=== PATIENT | female | born 1995 | race Caucasian/White ===

== ENCOUNTER 2025-03-13 01:13 | Outpatient (CLI) | payer MEDICAID, SELFPAY ==
--- OUTSIDE RECORDS SUMMARY | 2025-03-13 01:43 | XMS RPT_ITS | CCD ---
Author Organization [facility] Care Team Providers Care Rac Specialist Name Role Phone AmarisCorrie Unavailable Unavailable Terence Gifford Unavailable Unavailable Maryann Mathias MD Primary Care Provider JOSLYN PANDA Attending Unavailable DUANE, MARYANN R Primary Care Unavailable ALBERTA NOEL Attending Unavailable ALBERTA NOEL Referring Unavailable DUANE, MARYANN R Primary Care Unavailable ELIJAH SAUCEDO Attending Unavailable DUANE, MARYANN R Primary Care Unavailable SHARYN WALDRON Admitting Unavai lable SAMANTHA LAW Attending Unavailable DUANE, MARYANN R Primary Care Unavailable HERNESTO PATHAK Attending Unavailable DUANE, MARYANN R Primary Care Unavailable DUANE, MARYANN R Primary Care Unavailable MAX LAU Attending Unavailable MAX LAU Attending Unavailable DUANE, MARYANN R Primary Care Unavailable DUANE, MARYANN R Primary Care Unavailable MAX LAU Attending Unavailable DUANE, MARYANN R Primary Care Unavailable ALBERTA NOEL Attending Unavailable DOMONIQUE ONEILL Attending Unavailable DUANE, MARAYNN R Primary Care Unavailable DUANE, MARYANN R Primary Care Unavailable MAX LAU Attending Unavailable DUANE, MARYANN R Primary Care Unavailable ALBERTA NOEL Referring Unavailable DUANE, MARYANN R Primary Care Unavailable MAX LAU Attending Unavailable DUANE, MARYANN R Primary Care Unavailable DOMONIQUE ONEILL Attending Unavailable DUANE, MARYANN HEYDI Primary Care Unavailable LING DALY Attending UnavailMARYANN Light Primary Care Unavailable MARYANN MATHIAS Attending Unavailable Ling Daly Attending Unavailable MARYANN MATHIAS HEYDI Primary Care Unavailable Maryann Mathias MD Primary Care Provider Unavailable Primary Care Provider Unavailabl e PLOTTS, ANNIE Attending Unavailable PLOTTS, ANNIE Referring Unavailable PLOTTS, ANNIE Attending Unavailable PLOTTS, ANNIE Referring Unavailable PLOTTS, ANNIE Attending Unavailable MANCINI, KHADRA Attending Unavailable PLOTTS, ANNIE Referring Unavailable PLOTTS, ANNIE Attending Unavailable PLOTTS, ANNIE Referring Unavailable MANCINI, KHADRA Attending Unavailable MANCINI, KHADRA Attending Unavailable PLOTTS, ANNIE Referring Unavailable MANCINI, KHADRA Attending Unavailable MANCINI, KHADRA Attending Unavailable MANCINI, KHADRA Attending Unavailable MANCINI, KHADRA Attending Unavailable WISARTHUR DORADO Attending Unavailable CHINYERE FRIEND Attending Unavail able MANCINI, KHADRA Attending Unavailable PLOTTS, ANNIE Attending Unavailable Allergies Allergy Classification Reported Allergen(s) Allergy Type Date of Onset Reaction(s) Facility (20 sources) Azithromycin; Translations: [AZITHROMYCIN] Drug Allergy 0 Hives, Diarrhea, GI Upset [facility] (5 sources) Pertussis Vaccines; Translations: [PERTUSSIS VACCINES] Propensity to adverse reactions Hives [facility] (20 sources) Tetanus Vaccines And Toxoid; Translations: [TETANUS VACCINES AND TOXOID] Propensity to adverse reactions 0 [facility] Medications Current Medications Medication Drug Class(es) Dates Sig (Normalized) Sig (Original) 21 day ethinyl estradiol 0.581547 mg/hr / etonogestrel 0.005 mg/hr vaginal system (3 sources) Progestin, Estrogen Start: 11-22-2023 End: 07-29-2024 etonogestreL-ethinyl estradioL (NUVARING) 0.12-0.015 mg/24 hr vaginal ring Indications: Encounter for initial prescription of vaginal ring hormonal contraceptive insert one ring VAGINALLY AND LEAVE in place FOR THREE consecutive weeks,then REMOVE FOR ONE WEEK. 1 each 07/29/2024 Active Start: 03-31-2017 End: 07-31-2024 NUVARING 0.12-0.015 mg/24 hr vaginal ring INSERT VAGINALLY FOR 3 WEEKS. REMOVE FOR 1 WEEK 3 Each 1 03/31/2017 07/31/2024 Discontinued (Discontinued by Patient) ondansetron 4 mg disintegrating oral tablet (2 sources) Serotonin-3 Receptor Antagonist Start: 04-23-2022 End: 04-23-2022 ondansetron (ZOFRAN ODT) RAPID DISSOLVING tablet 4 mg Start: 04-23-2022 take 1 tablet by henrietta th every six hours as needed ondansetron (ZOFRAN ODT) 4 mg RAPID DISSOLVING tablet Take 1 Tab by mouth every 6 hours as needed 12 Tab 0 04/23/2022 Active PNV no.95/ferrous fum/folic ac ( ORAL) (20 sources) take 8 tablets by mo uth once daily before mealtime PNV no.95/ferrous fum/folic ac ( ORAL) Take 8 tablets by mouth once daily. Active vit no.124/iron/folic ( VITAMIN ORAL) (1 source) vit no.124/iron/folic ( VITAMIN ORAL) Take by mouth 0 Active Completed/Discontinued Medications Medication Drug Class(es) Dates Sig (Normalized) Sig (Original) aspirin 81 mg delayed release oral tablet (1 source) Platelet Aggregation Inhibitor, Nonsteroidal Anti-inflammatory Drug Start: 07-31-2024 End: 07-31-2024 take 1 tablet by mouth once daily aspirin, enteric coated (ECOTRIN LOW STRENGTH) 81 mg EC tablet Indications: Encounter for supervision of normal in multigravida , 8 weeks gestation of Take 1 tablet by mouth once daily. 90 tablet 3 07/31/2024 07/31/2024 Discontinued (Discontinued by Patient) levonorgestrel 0.996758 mg/hr intrauterine system (1 source) Progestin, Progestin-containin g Intrauterine Device End: 07-31-2024 levonorgestrel (MIRENA) 20 mcg/24 hr (5 years) IUD 1 Each by INTRAUTERINE route one time only. 07/31/2024 Discontinued (Discontinued by Patient) miSOPROStol 0.2 mg oral tablet (1 source) Prostaglandin E1 Analog Start: 04-17-2015 End: 07-31-2024 take 1 tablet by mouth every six hours as needed misoprostol (CYTOTEC) 200 mcg tablet Take 1 tablet by mouth every 6 hours as needed. 2 tablet 0 04/17/2015 07/31/2024 Discontinued (Discontinued by Patient) 1000 ml sodium chloride 9 mg/ml injection (1 source) Start: 04-23-2022 End: 04-23-2022 NaCl 0.9% 1,000 mL Problems Active Problems Problem Classification Problem Date Documented Date Episodic/Chronic Contraceptive and procreative management (4 sources) Encounter for initial prescription of vaginal ring hormonal contraceptive; Translations: [Encounter for initial prescription of contraceptive pills] Onset: 01-16-2023 07-27-2024 Episodic Other upper respiratory disease (1 source) Seasonal allergy; Translations: [Other seasonal allergic rhinitis] Onset: 11-19-2021 11-19-2021 Chronic Other upper respiratory disease (1 source) Pain in throat Onset: 07-27-2023 Episodic Other upper respiratory infections (1 source) Acute pharyngitis, unspecified; Translations: [Acute pharyngitis, unspecified] Onset: 07-27-2023 Episodic Residual codes; unclassified (3 sources) 39 weeks gestation of ; Translations: [39 weeks gestation of ] Onset: 11-17-2022 Episodic Residual codes; unclassified (1 source) Gestation period, 8 weeks; Translations: [8 weeks gestation of ] 07-31-2024 Episodic Residual codes; unclassified (2 sources) Gestation period, 12 weeks; Translations: [12 weeks gestation of ] 08-28-2024 Episodic Residual codes; unclassified (1 source) Gestation period, 16 weeks; Translations: [16 weeks gestation of ] 09-24-2024 Episodic Residual codes; unclassified (2 sources) Gestation period, 20 weeks; Translations: [20 weeks gestation of ] 10-23-2024 Episodic Residual codes; unclassified (1 source) Gestation period, 24 weeks; Translations: [24 weeks gestation of ] 11-19-2024 Episodic Residual codes; unclassified (1 source) Gestation period, 28 weeks; Translations: [28 weeks gestation of ] 12-17-2024 Episodic Residual codes; unclassified (1 source) Gestation period, 30 weeks; Translations: [30 weeks gestation of ] 12-31-2024 Episodic Residual codes; unclassified (1 source) Gestation period, 32 weeks; Translations: [32 weeks gestation of ] 01-14-2025 Episodic Residual codes; unclassified (1 source) Gestation period, 34 weeks; Translations: [34 weeks gestation of ] 01-28-2025 Episodic Residual codes; unclassified (1 source) Gestation period, 36 weeks; Translations: [36 weeks gestation of ] 02-11-2025 Episodic Residual codes; unclassified (1 source) Gestation period, 38 weeks; Translations: [38 weeks gestation of ] 02-25-2025 Episodic Residual codes; unclassified (2 sources) Gestation period, 39 weeks; Translations: [39 weeks gestation of ] 03-05-2025 Episodic Residual codes; unclassified (3 sources) Gestation period, 40 weeks; Translations: [40 weeks gestation of ] 03-11-2025 Episodic Residual codes; unclassified (1 source) 40 weeks gestation of ; Translations: [40 weeks gestation of (HCC)] Onset: 03-11-2025 Episodic Residual codes; unclassified (1 source) 38 weeks gestation of ; Translations: [38 weeks gestation of (HCC)] Onset: 02-25-2025 Episodic Residual codes; unclassified (1 source) 37 weeks gestation of ; Translations: [37 weeks gestation of (HCC)] Onset: 02-18-2025 Episodic Residual codes; unclassified (1 source) 36 weeks gestation of ; Translations: [36 weeks gestation of (HCC)] Onset: 02-11-2025 Episodic Residual codes; unclassified (1 source) 34 weeks gestation of ; Translations: [34 weeks gestation of (HCC)] Onset: 01-28-2025 Episodic Residual codes; unclassified (1 source) 32 weeks gestation of ; Translations: [32 weeks gestation of (HCC)] Onset: 01-14-2025 Episodic Residual codes; unclassified (1 source) 28 weeks gestation of ; Translations: [28 weeks gestation of ([facility])] Onset: 12-17-2024 Episodic Unclassified (2 sources) Abdominal Pain, Fever Onset: 04-23-2022 Unclassified (3 sources) Care; Translations: [ Care] Onset: 09-28-2022 Unclassified (1 source) Medication Management Onset: 10-25-2023 Unclassified (1 source) Sinus Problem Onset: 07-27-2023 Past or Other Problems Problem Classification Problem Date Documented Da te Episodic/Chronic Administrative/social admission (20 sources) Multiparous; Translations: [Problems related to multiparity] Onset: 07-31-2024 07-31-2024 Episodic Joint disorders and dislocations; trauma-related (1 source) Patellofemoral syndrome of bilateral knees; Translations: [Patellofemoral disorders, right knee] Onset: 03-19-2019 Resolved: 06-17-2019 06-17-2019 Chronic Menstrual disorders (20 sources) Oligomenorrhea; Translations: [Oligomenorrhea, unspecified] Onset: 12-08-2009 Resolved: 12-31-2024 12-08-2009 Chronic Nausea and vomiting (5 sources) Nausea, vomiting and diarrhea; Translations: [Nausea with vomiting, unspecified] Onset: 04-23-2022 Episodic Other connective tissue disease (1 source) Finding of pattern of gross motor movement; Translations: [Other symptoms and signs involving the musculoskeletal system] Onset: 08-26-2016 Resolved: 10-14-2016 10-14-2016 Episodic Other connective tissue disease (1 source) Other symptoms and signs involving the musculoskeletal system; Translations: [Other musculoskeletal symptoms referable to limbs] Onset: 03-19-2019 Resolved: 06-17-2019 06-17-2019 Episodic Other gastrointestinal disorders (2 sources) Diarrhea, unspecified; Translations: [Diarrhea, unspecified] Onset: 04-23-2022 Episodic Other nervous system disorders (1 source) Abnormal gait; Translations: [Unspecified abnormalities of gait and mobility] Onset: 03-19-2019 Resolved: 06-17-2019 06-17-2019 Episodic Other non-traumatic joint disorders (1 source) Pain in right knee; Translations: [Pain in joint, lower leg] Onset: 03-19-2019 Resolved: 06-17-2019 06-17-2019 Episodic Other and delivery including normal (20 sources) Encounter for supervision of other normal , unspecified trimester; Translations: [Encounter for full-term uncomplicated delivery] Onset: 05-29-2020 Resolved: 04-19-2021 Episodic Other screening for suspected conditions (not mental disorders or infectious disease) (9 sources) Encounter for screening for malformations; Translations: [Patient encounter status] Onset: 05-25-2022 Episodic Residual codes; unclassified (1 source) 24 weeks gestation of ; Translations: [24 weeks gestation of (HCC)] Onset: 11-19-2024 Episodic Residual codes; unclassified (2 sources) 8 weeks gestation of ; Translations: [8 weeks gestation of (HCC)] Onset: 08-28-2024 Episodic Spondylosis; intervertebral disc disorders; other back problems (2 sources) Neck pain; Translations: [Cervicalgia] Onset: 08-26-2016 Resolved: 10-14-2016 10-14-2016 Episodic Results Test Name Value Interpretation Reference Range Karina Hallman 03-12-2025 CNPN Telephone (OBGYWM) DARRENYANET ([id number]) 1995 F Date Time Provider Department 03/12/25 CHINYERE FRIEND OBGYWM During your visit today, we recorded the following information about you: Nica Law, ANNIE 03/12/2025 4:07 PM Signed 40w4d Patient called to report that she has been kaden since 6 AM. 10 min apart up until the last hour where they are 6-8 min. Becoming more painful. Rating a 6. Not ruptured. Lost mucous plug at 6 AM. Good FM. No VB. Would like to continue to labor at home for several hours. Wants a water and asked to let midwives know. Message sent to CP. Patient aware that MAGDIEL and CP are not carbon capture power plant operator today. CORA notified. Updated HANDP faxed to Cora. Patient lives minutes away from the hospital. Nica Law RN Allergies As of Date: 03/12/2025 Noted Allergy Reaction TETANUS VACCINES AND TOXOID 12/08/2009 Comments: Ingredient in Old Tetanus Vaccine. ZITHROMAX (AZITHROMYCIN) 12/08/2009 8 - GI Upset Date Reviewed: 03/11/2025 Reviewed by: Carli Youngblood MA - Fully Assessed Reason for Visit: OB Contractions [Other] Prescriptions as of 03/12/2025 - PNV no.95/ferrous fum/folic ac ( ORAL) Take 8 tablets by mouth once daily. Problem List As Of Date 03/12/2025 Noted Resolved Oligomenorrhea [N91.5] 12/08/2009 12/31/2024 Dysmenorrhea [N94.6] 12/08/2009 08/28/2024 Encounter for supervision of normal i*07/31/2024 Multiparity [Z64.1] 07/31/2024 Encounter Status:Closed by NICA LAW on 03/12/25 Normal [facility] URINE OB DIP B/Oon Glucose Ql (U) Negative Neg mg/dL [facility] Interpretation and review of laboratory results Normal [facility] Protein.monoclonal (U) [Mass/Vol] Negative Neg mg/dL [facility] CNPNon 03-07-2025 CNPN Telephone (OBGYWM) YANET BANKS ([id number]) 1995 F Date Time Provider Department 03/07/25 ANNIE THAKUR OBGYWM During your visit today, we recorded the following information about you: Erasto Brunson LPN 03/07/2025 3:28 PM Signed Faxed signed water consent to [facility] 03/07/2025. Erasto Brunson LPN Allergies As of Date: 03/07/2025 Noted Allergy Reaction TETANUS VACCINES AND TOXOID 12/08/2009 Comments: Ingredient in Old Tetanus Vaccine. ZITHROMAX (AZITHROMYCIN) 12/08/2009 8 - GI Upset Date Reviewed: 03/07/2025 Reviewed by: Erasto Brunson LPN - Fully Assessed Prescriptions as of 03/07/2025 - PNV no.95/ferrous fum/folic ac ( ORAL) Take 8 tablets by mouth once daily. Problem List As Of Date 03/07/2025 Noted Resolved Oligomenorrhea [N91.5] 12/08/2009 12/31/2024 Dysmenorrhea [N94.6] 12/08/2009 08/28/2024 Encounter for supervision of normal i*07/31/2024 Multiparity [Z64.1] 07/31/2024 Encounter Status:Closed by ERASTO BRUNSON on 03/07/25 Normal [facility] URINE OB DIP B/Oon 5 Glucose Ql (U) Negative Neg mg/dL [facility] Interpretation and review of laboratory results Normal [facility] Protein.monoclonal (U) [Mass/Vol] Negative Neg mg/dL [facility] URINE OB DIP B/Oon 5 Glucose Ql (U) Negative Neg mg/dL [facility] Interpretation and review of laboratory results Normal [facility] Protein.monoclonal (U) [Mass/Vol] Negative Neg mg/dL [facility] URINE OB DIP B/Oon 5 Glucose Ql (U) Negative Neg mg/dL [facility] Interpretation and review of laboratory results Normal [facility] Protein.monoclonal (U) [Mass/Vol] Negative Neg mg/dL [facility] ROUTINE, GROUP B ST REPTOCOCCUS BY PCRon 02-11-2025 ROUTINE, GROUP B STREPTOCOCCUS BY PCR Not detected Normal [facility] Comment on above: Performed By: #### L [id number] #### [facility] CLIA [id number] [address] [place] [address] [place] [facility] URINE OB DIP B/Oon 5 Glucose Ql (U) Negative Neg mg/dL [facility] Protein.monoclonal (U) [Mass/Vol] Negative Neg mg/dL [facility] CNPShama 01-28-2025 JAKEN Telephone (OBGYWM) YANET BANKS ([id number]) 1995 F Date Time Provider Department 01/28/25 ARTHUR CONKLIN OBSANDRITA During your visit today, we recorded the following information about you: Nica Law RN 01/28/2025 3:24 PM Addendum 34w3d Patient seen in office today and forgot to mention some pain she had on Monday after she was seen by the Chiropractor. Several hours after she had a side line adjustment on Monday she had a sharp pain in her cervix. Pain rate of 7-8. Said it felt much different than Luis Barnett. The pain returned again today after being seen in our office. Sharp again, but only a pain rate of 2. Patient asking if this pain could be related to her adjustment. Reassurance given. Advised to call the office if her pain continues, becomes more severe, or is accompanied with VB. Patient asked that message be sent to MAGDIEL. Advised provider is out of the office. ANNIE Witt Sara, MD 01/28/2025 5:09 PM Signed Agree call if pain is severe, persistent or associated with other symptoms such as bleeding, LOF. For pain in advise warm baths or showers, rest, and Tylenol PRN. If pain does not improve with that can call Lolis Anders RN 01/29/2025 9:14 AM Signed Patient notified and voiced understanding. Lolis Anders RN Allergies As of Date: 01/28/2025 Noted Allergy Reaction TETANUS VACCINES AND TOXOID 12/08/2009 Comments: Ingredient in Old Tetanus Vaccine. ZITHROMAX (AZITHROMYCIN) 12/08/2009 8 - GI Upset Date Reviewed: 01/28/2025 Reviewed by: Niru Lazo MA - Fully Assessed Reason for Visit: Question (OB Question) [8172] Prescriptions as of 01/29/2025 - PNV no.95/ferrous fum/folic ac ( ORAL) Take 8 tablets by mouth once daily. Problem List As Of Date 01/28/2025 Noted Resolved Oligomenorrhea [N91.5] 12/08/2009 12/31/2024 Dysmenorrhea [N94.6] 12/08/2009 08/28/2024 Encounter for supervision of normal i*07/31/2024 Multiparity [Z64.1] 07/31/2024 Encounter Status:Closed by LOLIS ANDERS on 01/29/25 [facility] 01-01-2025 CNPN Telephone ([id number]) YANET BANKS ([id number]) 1995 F Date Time Provider Department 01/01/25 NICA URIARTE [id number] During your visit today, we recorded the following information about you: Nica Uriarte RN 01/01/2025 8:17 AM Signed 3rd risk assessment form submitted 01/01/2025. Nica Uriarte RN Allergies As of Date: 01/01/2025 Noted Allergy Reaction TETANUS VACCINES AND TOXOID 12/08/2009 Comments: Ingredient in Old Tetanus Vaccine. 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 Problem List As Of Date 01/01/2025 Noted Resolved Oligomenorrhea [N91.5] 12/08/2009 12/31/2024 Dysmenorrhea [N94.6] 12/08/2009 08/28/2024 Encounter for supervision of normal i*07/31/2024 Multiparity [Z64.1] 07/31/2024 Encounter Status:Closed by INCA URIARTE on 01/01/25 Normal [facility] CBC W Auto Differential pane l (Bld)on 12-17-2024 Basophils (Bld) [#/Vol] 10*3/uL Normal <0.11 [facility] Comment on above: Order Comment: Speci men Type: FLUID SPECIMEN Ordering Facility: [facility] Address: [address] [place] [address] Performed By: #### L [id number] #### [facility] CLIA [id number] [address] [place] [address] [place] Basophils/100 WBC (Bld) 0.3 % Normal [facility] Comment on above: Order Comment: Speci men Type: FLUID SPECIMEN Ordering Facility: [facility] Address: [address] [place] [address] Performed By: #### L [id number] #### [facility] CLIA [id number] [address] [place] [address] [place] Differential cell count method Nom (Bld) Auto Normal [facility] Comment on above: Order Comment: Speci men Type: FLUID SPECIMEN Ordering Facility: [facility] Address: [address] [place] [address] Performed By: #### L [id number] #### [facility] CLIA [id number] [address] [place] [address] [place] Eosinophils (Bld) [#/Vol] 0.11 10*3/uL Normal <0.46 [facility] Comment on above: Order Comment: Speci men Type: FLUID SPECIMEN Ordering Facility: [facility] Address: [address] [place] [address] Performed By: #### L [id number] #### [facility] CLIA [id number] [address] [place] [address] [place] Eosinophils/100 WBC (Bld) 1.5 % Normal [facility] Comment on above: Order Comment: Speci men Type: FLUID SPECIMEN Ordering Facility: [facility] Address: [address] [place] [address] Performed By: #### L [id number] #### [facility] CLIA [id number] [address] [place] [address] [place] Erythrocyte distribution width (RBC) [Ratio] 12.7 % Normal 11.5-15.0 [facility] Comment on above: Order Comment: Speci men Type: FLUID SPECIMEN Ordering Facility: [facility] Address: [address] [place] [address] Performed By: #### L [id number] #### [facility] CLIA [id number] [address] [place] [address] [place] Hematocrit (Bld) [Volume fraction] 37.0 % Normal 36.0-46.0 [facility] Comment on above: Order Comment: Speci men Type: FLUID SPECIMEN Ordering Facility: [facility] Address: [address] [place] [address] Performed By: #### L [id number] #### [facility] CLIA [id number] [address] [place] [address] [place] Hemoglobin (Bld) [Mass/Vol] 13.2 g/dL Normal 11.5-15.5 [facility] Comment on above: Order Comment: Speci men Type: FLUID SPECIMEN Ordering Facility: [facility] Address: [address] [place] [address] Performed By: #### L [id number] #### [facility] CLIA [id number] [address] [place] [address] [place] Immature granulocytes (Bld) [#/Vol] 0.05 10*3/uL Normal <0.10 [facility] Comment on above: Order Comment: Speci men Type: FLUID SPECIMEN Ordering Facility: [facility] Address: [address] [place] [address] Performed By: #### L [id number] #### [facility] CLIA [id number] [address] [place] [address] [place] Immature granulocytes/100 WBC (Bld) 0.7 % Normal [facility] Comment on above: Order Comment: Speci men Type: FLUID SPECIMEN Ordering Facility: [facility] Address: [address] [place] [address] Performed By: #### L [id number] #### [facility] CLIA [id number] [address] [place] [address] [place] Lymphocytes (Bld) [#/Vol] 1.56 10*3/uL Normal 1.00-4.00 [facility] Comment on above: Order Comment: Speci men Type: FLUID SPECIMEN Ordering Facility: [facility] Address: [address] [place] [address] Performed By: #### L [id number] #### [facility] CLIA [id number] [address] [place] [address] [place] Lymphocytes/100 WBC (Bld) 21.3 % Normal [facility] Comment on above: Order Comment: Speci men Type: FLUID SPECIMEN Ordering Facility: [facility] Address: [address] [place] [address] Performed By: #### L [id number] #### [facility] CLIA [id number] [address] [place] [address] [place] MCH (RBC) [Entitic mass] 32.8 pg Normal 26.0-34.0 [facility] Comment on above: Order Comment: Speci men Type: FLUID SPECIMEN Ordering Facility: [facility] Address: [address] [place] [address] Performed By: #### L [id number] #### [facility] CLIA [id number] [address] [place] [address] [place] MCHC (RBC) [Mass/Vol] 35.7 g/dL Normal 30.5-36.0 [facility] Comment on above: Order Comment: Speci men Type: FLUID SPECIMEN Ordering Facility: [facility] Address: [address] [place] [address] Performed By: #### L [id number] #### [facility] CLIA [id number] [address] [place] [address] [place] MCV (RBC) [Entitic vol] 92.0 fL Normal 80.0-100.0 [facility] Comment on above: Order Comment: Speci men Type: FLUID SPECIMEN Ordering Facility: [facility] Address: [address] [place] [address] Performed By: #### L [id number] #### [facility] CLIA [id number] [address] [place] [address] [place] Monocytes (Bld) [#/Vol] 0.54 10*3/uL Normal <0.87 [facility] Comment on above: Order Comment: Speci men Type: FLUID SPECIMEN Ordering Facility: [facility] Address: [address] [place] [address] Performed By: #### L [id number] #### [facility] CLIA [id number] [address] [place] [address] [place] Monocytes/100 WBC (Bld) 7.4 % Normal [facility] Comment on above: Order Comment: Speci men Type: FLUID SPECIMEN Ordering Facility: [facility] Address: [address] [place] [address] Performed By: #### L [id number] #### [facility] CLIA [id number] [address] [place] [address] [place] Neutrophils (Bld) [#/Vol] 5.06 10*3/uL Normal 1.45-7.50 [facility] Comment on above: Order Comment: Speci men Type: FLUID SPECIMEN Ordering Facility: [facility] Address: [address] [place] [address] Performed By: #### L [id number] #### [facility] CLIA [id number] [address] [place] [address] [place] Neutrophils/100 WBC (Bld) 68.8 % Normal [facility] Comment on above: Order Comment: Speci men Type: FLUID SPECIMEN Ordering Facility: [facility] Address: [address] [place] [address] Performed By: #### L [id number] #### [facility] CLIA [id number] [address] [place] [address] [place] Nucleated RBC (Bld) [#/Vol] 10*3/uL Normal <0.01 [facility] Comment on above: Order Comment: Speci men Type: FLUID SPECIMEN Ordering Facility: [facility] Address: [address] [place] [address] Performed By: #### L [id number] #### [facility] CLIA [id number] [address] [place] [address] [place] Nucleated RBC/100 WBC (Bld) [Ratio] 0.0 /100 WBC Normal [facility] Comment on above: Order Comment: Speci men Type: FLUID SPECIMEN Ordering Facility: [facility] Address: [address] [place] [address] Performed By: #### L [id number] #### [facility] CLIA [id number] [address] [place] [address] [place] Platelet mean volume (Bld) [Entitic vol] 9.0 fL Normal 9.0-12.7 [facility] Comment on above: Order Comment: Speci men Type: FLUID SPECIMEN Ordering Facility: [facility] Address: [address] [place] [address] Performed By: #### L [id number] #### [facility] CLIA [id number] [address] [place] [address] [place] Platelets (Bld) [#/Vol] 252 10*3/uL Normal 150-400 [facility] Comment on above: Order Comment: Speci men Type: FLUID SPECIMEN Ordering Facility: [facility] Address: [address] [place] [address] Performed By: #### L [id number] #### [facility] CLIA [id number] [address] [place] [address] [place] RBC (Bld) [#/Vol] 4.02 10*6/uL Normal 3.90-5.20 [facility] Comment on above: Order Comment: Speci men Type: FLUID SPECIMEN Ordering Facility: [facility] Address: [address] [place] [address] Performed By: #### L [id number] #### [facility] CLIA [id number] [address] [place] [address] [place] WBC (Bld) [#/Vol] 7.34 10*3/uL Normal 3.70-11.00 [facility] Comment on above: Order Comment: Speci men Type: FLUID SPECIMEN Ordering Facility: [facility] Address: [address] [place] [address] Performed By: #### L [id number] #### [facility] CLIA [id number] [address] [place] [address] [place] GESTATIONAL GLUCOSE SCREEN, 1-HOUR, 50 GRAM, NON-FASTINGon 12-17-2024 Glucose [Mass/Vol] 105 mg/dL Normal 74-134 [facility] Comment on above: Order Comment: Speci men Type: FLUID SPECIMEN Ordering Facility: [facility] Address: [address] [place] [address] Result Comment: [place] [employer]etric[employer]nec[employer] (Kasi/Michael) guidelines state a gestational diabetes mellitus positive screen is made, in women not previously diagnosed with overt diabetes, when the 1 hr plasma glucose level is equal to or above 140 mg/dL. The [facility] Assistant Art Director and Women's [facility] [place] recommends a 135 mg/dL cutoff. Performed By: #### L [id number] #### [facility] CLIA [id number] [address] [place] [address] [place] Reagin and Treponema pallidu m IgG and IgM [Interp]on 12-17-2024 T. pallidum IgG+IgM IA Ql (S) Non-Reactive Normal Nonreactive [facility] Comment on above: Order Comment: Speci men Type: BLOOD SPECIMEN Ordering Facility: [facility] Address: [address] [place] [address] Performed By: #### T SPN #### [facility] CLIA [id number] [address] [place] [address] [place] Reagin+T pallidum IgG+IgM Se rPl-Impon 12-17-2024 Reagin and Treponema pallidum IgG and IgM [Interp] Cannot exclude recent Treponemal infection if specimen collected within 7-10 days after appearance of suspect lesions or 2-3 weeks after an exposure. Clinical correlation is required. Normal [facility] Comment on above: Order Comment: Speci men Type: BLOOD SPECIMEN Ordering Facility: [facility] Address: [address] [place] [address] Performed By: #### T SPN #### [facility] CLIA [id number] [address] [place] [address] [place] Lexx 10-24-2024 CNPN Telephone ([id number]) YANET BANKS ([id number]) 1995 F Date Time Provider Department 10/24/24 NICA URIARTE [id number] During your visit today, we recorded the following information about you: Nica Uriarte RN 10/24/2024 12:41 PM Signed 2nd risk assessment form submitted 10/24/2024. Niac Uriarte RN Allergies As of Date: 10/24/2024 Noted Allergy Reaction TETANUS VACCINES AND TOXOID 12/08/2009 Comments: Ingredient in Old Tetanus Vaccine. 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 Problem List As Of Date 10/24/2024 Noted Resolved Oligomenorrhea [N91.5] 12/08/2009 Dysmenorrhea [N94.6] 12/08/2009 08/28/2024 Encounter for supervision of normal i*07/31/2024 Multiparity [Z64.1] 07/31/2024 Encounter Status:Closed by NICA URIARTE on 10/24/24 Normal [facility] Examination level ultrasound on 10-23-2024 Indication Standard anatomic survey Impression REMOTE READ The patient is referred for a standard anatomic survey. - Single, live, intrauterine . - biometry is consistent with the established gestational age. - No malformations were visualized on a complete standard anatomic survey. - The amniotic fluid volume is normal amount. - The placenta is anterior, fundal. - The Transabdominal cervical length measures 33.1 mm with no evidence of funneling or other dynamic changes. - Not all structural malformations can be detected by ultrasound examination. Recommendations Additional follow-up as clinically indicated. Maternal Assessment Height 155 cm Height (ft) 5 ft Height (in) 1 in Physical Exam Initial weight (lb) 124 lb Initial BMI 23.43 kg/m Maternal assessment other: 3 Para 2 Method Transabdominal ultrasound examination. View: Adequate visualization Salas . Number of fetuses: 1 Dating LMP on: 06/01/2024 GA by LMP 20 w + 4 d KIA by LMP: 03/08/2025 GA by prior assessment 20 w + 4 d KIA by prior assessment: 03/08/2025 Ultrasound examination on: 10/23/2024 GA by U/S based upon: AC, BPD, Femur, HC GA by U/S 19 w + 6 d KIA by U/S: 03/13/2025 Assigned: based on stated KIA, selected on 10/23/2024 Assigned GA 20 w + 4 d Assigned KIA: 03/08/2025 General Evaluation Cardiac activity present. FHR 159 bpm. movements: present. Presentation: breech Placenta: Placental site: anterior, fundal Umbilical cord: Cord vessels: 3 vessel cord Amniotic fluid: Amount of AF: normal amount. MVP 4.5 cm Growth Overview Exam date GA BPD (mm) HC (mm) AC (mm) FL (mm) HL (mm) EFW (g) 10/23/2024 20w 4d 44.2 9% 173.5 29% 156.4 51% 30.1 19% 30.1 25% 330 21% Biometry Standard BPD 44.2 mm 19w 3d 9% Hadlock OFD 63.2 mm 20w 2d 56% Nicolaides HC 173.5 mm 19w 6d 29% Isra Cerebellum tr 19.7 mm 19w 0d 17% Hill Nuchal fold 3.6 mm AC 156.4 mm 20w 6d 51% Hadlock Femur 30.1 mm 19w 3d 19% Isra Humerus 30.1 mm 19w 6d 25% Isra EFW 330 g 20w 0d 21% Hadlock EFW (lb) 0 lb EFW (oz) 12 oz EFW by: Hadlock (HC-AC-FL) Extended Electromechanical Technician 6.5 mm CM 3.9 mm 13% Nicolaides Extremities / Bony Struc FL / HC 0.17 2% Hadlock Other Structures FHR 159 bpm Anatomy Cranium: normal Lateral ventricles: normal Choroid plexus: normal Midline falx: normal Cavum septi pellucidi: normal Cerebellum: normal Cisterna magna: normal Head / Neck Vermis: Normal but not required for a standard anatomy exam Neck: Normal but not required for a standard anatomy exam Nuchal fold: Normal but not required for a standard anatomy exam Lips: normal Profile: Normal but not required for a standard anatomy exam Nose: Normal but not required for a standard anatomy exam Face Maxilla: Normal but not required for a standard anatomy exam Mandible: Normal but not required for a standard anatomy exam Orbits: Normal but not required for a standard anatomy exam Lens: Normal but not required for a standard anatomy exam 4-chamber view: normal RVOT view: normal LVOT view: normal 3-vessel view: normal 2-ofqkwu-sembeiw view: normal Heart / Thorax Situs: situs solitus (normal) Aortic arch view: Normal but not required for a standard anatomy exam SVC: Normal but not required for a standard anatomy exam IVC: Normal but not required for a standard anatomy exam Cardiac axis: normal Rt lung: Normal but not required for a standard anatomy exam Lt lung: Normal but not required for a standard anatomy exam Diaphragm: Normal but not required for a standard anatomy exam Cord insertion: normal Stomach: normal Kidneys: normal Bladder: normal Genitals: normal Abdomen Abdom. wall: normal Cervical spine: normal Thoracic spine: normal Lumbar spine: normal Sacral spine: normal Arms: normal Legs: normal Rt upper arm: normal Rt forearm: normal Rt hand: normal Rt fingers: normal Lt upper arm: normal Lt forearm: normal Lt hand: normal Lt fingers: normal Rt upper leg: normal Rt lower leg: normal Rt foot: normal Lt upper leg: normal Lt lower leg: normal Lt foot: normal sex: male Wants to know sex: yes Maternal Structures Uterus / Cervix Uterus: Visualized Cervix: Visualized Approach: Transabdominal Cervical length 33.1 mm Other: Patient declined transvaginal ultrasound for cervical length. Ovaries / Tubes / Adnexa Rt ovary: Visualized Lt ovary: Visualized Performed By: Lolis De Jesus RDMS, RVT Read By: Geri Wilson M.D. MATERNAL MEDICINE [facility] Radiology Study observation (narrative) [facility] Examination level ultrasound on 08-28-2024 Indication First trimester anatomic survey Impression REMOTE READ The patient is referred for a first trimester anatomy scan including nuchal translucency measurement as clinically indicated. - Single, live, intrauterine . - Crisman rump length measurement is consistent with the established gestational age. - No malformations visualized on incomplete first trimester anatomic assessment. - The nuchal translucency measurement is 1.3 mm. - Not all structural malformations can be detected by ultrasound examination. Maternal Structures: Right Ovary: Size 33 mm x 31 mm x 25 mm Left Ovary: Size 21 mm x 28 mm x 29 mm Recommendations Return for anatomy ultrasound Maternal Assessment Height 155 cm Height (ft) 5 ft Height (in) 1 in Physical Exam Initial weight (lb) 124 lb Initial BMI 23.43 kg/m Maternal assessment other: 3 Para 2 Method Transabdominal ultrasound examination Salas . Number of fetuses: 1 Dating LMP on: 06/01/2024 GA by LMP 12 w + 4 d KIA by LMP: 03/08/2025 GA by prior assessment 12 w + 4 d KIA by prior assessment: 03/08/2025 Ultrasound examination on: 08/28/2024 GA by U/S based upon: CRL GA by U/S 12 w + 2 d KIA by U/S: 03/10/2025 Assigned: based on the LMP, selected on 07/31/2024 Assigned GA 12 w + 4 d Assigned KIA: 03/08/2025 General Evaluation Cardiac activity present Placenta: anterior Cord vessels: 3 vessel cord Amniotic fluid: normal amount Biometry Standard FHR 162 bpm CRL 57.6 mm 12w 2d 20% Hadlock NT 1.30 mm First Trimester Anatomy Calvarium: normal Falx cerebri: normal Choroid plexus: normal Profile: normal Nasal bone: normal Retronasal triangle: normal Maxilla: normal Mandible: normal Nuchal translucency: Unremarkable Situs: normal Cardiac position: normal Cardiac axis: normal 4-chamber view: suboptimal 4-chamber view with color: suboptimal 0-[id number]-rpvdmcj view: suboptimal Abdominal cord insertion: normal Stomach: normal Kidneys: visualized Bladder: normal Color doppler of perivesical umbilical arteries: normal Vertebral alignment: normal Arms: normal Hands: normal Legs: normal Feet: normal Maternal Structures Uterus / Cervix Uterus: Visualized Uterus length 107 mm Uterus width 83 mm Uterus height 74 mm Uterus Vol 341.7 cm Ovaries / Tubes / Adnexa Rt ovary: Visualized Rt ovary D1 33 mm Rt ovary D2 31 mm Rt ovary D3 25 mm Rt ovary Vol 12.9 cm Lt ovary: Visualized Lt ovary D1 21 mm Lt ovary D2 28 mm Lt ovary D3 29 mm Lt ovary Vol 8.7 cm Performed By: Lolis De Jesus RDMS, RVT Read By: Geri Wilson M.D. 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 ZITHROMAX (AZITHROMYCIN) 12/08/2009 8 - GI Upset Date Reviewed: 07/31/2024 Reviewed by: Annie Thakur APRN.CNM - Fully Assessed Reason for Visit: PRAF [4193] Prescriptions as of 08/01/2024 - PNV no.95/ferrous fum/folic ac ( ORAL) Take 8 tablets by mouth once daily. Problem List As Of Date 08/01/2024 Noted Resolved Oligomenorrhea [N91.5] 12/08/2009 Dysmenorrhea [N94.6] 12/08/2009 Encounter for supervision of normal i*07/31/2024 Multiparity [Z64.1] 07/31/2024 Encounter Status:Closed by SHI MEDLEY on 08/01/24 Normal [facility] Bacteria Ur Culton Bacteria identified Cx Nom (U) CULTURE, URINE: No growth (<1,000 CFU/ml) Normal [facility] Comment on above: Performed By: #### L [id number] #### [facility] CLIA [id number] [address] [place] [address] [place] C. trachomatis+N. gonorrhoea e DNA MICHAEL+probe Ql (Unsp spec)on 07-31-2024 C. trachomatis rRNA MICHAEL+probe Ql (Unsp spec) Not detected Normal Not detected [facility] Comment on above: Order Comment: Speci men Type: FLUID SPECIMEN Ordering Facility: [facility] Address: [address] [place] [address] Performed By: #### L [id number] #### [facility] CLIA [id number] [address] [place] [address] [place] N. gonorrhoeae rRNA MICHAEL+probe Ql (Unsp spec) Not detected Normal Not detected [facility] Comment on above: Order Comment: Speci men Type: FLUID SPECIMEN Ordering Facility: [facility] Address: [address] [place] [address] Performed By: #### L [id number] #### [facility] CLIA [id number] [address] [facility] [id number] [address] [place] CBC W Auto Differential pane l (Bld)on 07-31-2024 Basophils (Bld) [#/Vol] 10*3/uL Normal <0.11 [facility] Comment on above: Order Comment: Speci men Type: BLOOD SPECIMEN Ordering Facility: [facility] Address: [address] [place] [address] Performed By: #### 5 7021-8 #### [facility] CLIA [id number] [address] [place] [address] [place] Basophils/100 WBC (Bld) 0.3 % Normal [facility] Comment on above: Order Comment: Speci men Type: BLOOD SPECIMEN Ordering Facility: [facility] Address: [address] [place] [address] Performed By: #### 5 7021-8 #### [facility] CLIA [id number] [address] [place] [address] [place] Differential cell count method Nom (Bld) Auto Normal [facility] Comment on above: Order Comment: Speci men Type: BLOOD SPECIMEN Ordering Facility: [facility] Address: [address] [place] [address] Performed By: #### 5 7021-8 #### [facility] CLIA [id number] [address] [place] [address] [place] Eosinophils (Bld) [#/Vol] 0.11 10*3/uL Normal <0.46 [facility] Comment on above: Order Comment: Speci men Type: BLOOD SPECIMEN Ordering Facility: [facility] Address: [address] [place] [address] Performed By: #### 5 7021-8 #### [facility] CLIA [id number] [address] [place] [address] [place] Eosinophils/100 WBC (Bld) 1.4 % Normal [facility] Comment on above: Order Comment: Speci men Type: BLOOD SPECIMEN Ordering Facility: [facility] Address: [address] [place] [address] Performed By: #### 5 7021-8 #### [facility] CLIA [id number] [address] [place] [address] [place] Erythrocyte distribution width (RBC) [Ratio] 11.8 % Normal 11.5-15.0 [facility] Comment on above: Order Comment: Speci men Type: BLOOD SPECIMEN Ordering Facility: [facility] Address: [address] [place] [address] Performed By: #### 5 7021-8 #### [id number] [address] [place] [address] [place] Hematocrit (Bld) [Volume fraction] 40.5 % Normal 36.0-46.0 [facility] Comment on above: Order Comment: Speci men Type: BLOOD SPECIMEN Ordering Facility: [facility] Address: [address] [place] [address] Performed By: #### 5 7021-8 #### [id number] [address] [place] [address] [place] Hemoglobin (Bld) [Mass/Vol] 14.2 g/dL Normal 11.5-15.5 [facility] Comment on above: Order Comment: Speci men Type: BLOOD SPECIMEN Ordering Facility: [facility] Address: [address] [place] [address] Performed By: #### 5 7021-8 #### [facility] [id number] [address] [place] [address] [place] Immature granulocytes (Bld) [#/Vol] 0.03 10*3/uL Normal <0.10 [facility] Comment on above: Order Comment: Speci men Type: BLOOD SPECIMEN Ordering Facility: [facility] Address: [address] [id number] Performed By: #### 5 7021-8 #### [facility] CLIA [id number] [address] [place] [address] [place] Immature granulocytes/100 WBC (Bld) 0.4 % Normal [facility] Comment on above: Order Comment: Speci men Type: BLOOD SPECIMEN Ordering Facility: [facility] Address: [address] [place] [address] Performed By: #### 5 7021-8 #### [facility] CLIA [id number] [address] [place] [address] [place] Lymphocytes (Bld) [#/Vol] 2.09 10*3/uL Normal 1.00-4.00 [facility] Comment on above: Order Comment: Speci men Type: BLOOD SPECIMEN Ordering Facility: [facility] Address: [address] [place] [address] Performed By: #### 5 7021-8 #### [facility] [id number] [address] [place] [address] [place] Lymphocytes/100 WBC (Bld) 26.5 % Normal [facility] Comment on above: Order Comment: Speci men Type: BLOOD SPECIMEN Ordering Facility: [facility] Address: [address] [place] [address] Performed By: #### 5 7021-8 #### [facility] [id number] [address] [place] [address] [place] MCH (RBC) [Entitic mass] 31.7 pg Normal 26.0-34.0 [facility] Comment on above: Order Comment: Speci men Type: BLOOD SPECIMEN Ordering Facility: [facility] Address: [address] [place] [address] Performed By: #### 5 7021-8 #### [facility] CLIA [id number] [address] [place] [address] [place] MCHC (RBC) [Mass/Vol] 35.1 g/dL Normal 30.5-36.0 [facility] Comment on above: Order Comment: Speci men Type: BLOOD SPECIMEN Ordering Facility: [facility] Address: [address] [place] [address] Performed By: #### 5 7021-8 #### [facility] CLIA [id number] [address] [place] [address] [place] MCV (RBC) [Entitic vol] 90.4 fL Normal 80.0-100.0 [facility] Comment on above: Order Comment: Speci men Type: BLOOD SPECIMEN Ordering Facility: [facility] Address: [address] [place] [address] Performed By: #### 5 7021-8 #### [facility] CLIA [id number] [address] [place] [address] [place] Monocytes (Bld) [#/Vol] 0.48 10*3/uL Normal <0.87 [facility] Comment on above: Order Comment: Speci men Type: BLOOD SPECIMEN Ordering Facility: [facility] Address: [address] [place] [address] Performed By: #### 5 7021-8 #### [facility] CLIA [id number] [address] [place] [address] [place] Monocytes/100 WBC (Bld) 6.1 % Normal [facility] Comment on above: Order Comment: Speci men Type: BLOOD SPECIMEN Ordering Facility: [facility] Address: [address] [place] [address] Performed By: #### 5 7021-8 #### [facility] CLIA [id number] [address] [place] [address] [place] JASON Neutrophils (Bld) [#/Vol] 5.16 10*3/uL Normal 1.45-7.50 [facility] Comment on above: Order Comment: Speci men Type: BLOOD SPECIMEN Ordering Facility: [facility] Address: [address] [place] [address] Performed By: #### 5 7021-8 #### [facility] CLIA [id number] [address] [place] [address] [place] Neutrophils/100 WBC (Bld) 65.3 % Normal [facility] Comment on above: Order Comment: Speci men Type: BLOOD SPECIMEN Ordering Facility: [facility] Address: [address] [place], [place] [id number] Performed By: #### 5 7021-8 #### [facility] CLIA [id number] [address] [place] [address] [place] Nucleated RBC (Bld) [#/Vol] 10*3/uL Normal <0.01 [facility] Comment on above: Order Comment: Speci men Type: BLOOD SPECIMEN Ordering Facility: [facility] Address: [address] [place] [address] Performed By: #### 5 7021-8 #### [facility] CLIA [id number] [address] [place] [address] [place] Nucleated RBC/100 WBC (Bld) [Ratio] 0.0 /100 WBC Normal [facility] Comment on above: Order Comment: Speci men Type: BLOOD SPECIMEN Ordering Facility: [facility] Address: [address] [place] [address] Performed By: #### 5 7021-8 #### [facility] CLIA [id number] [address] [place] [address] [place] Platelet mean volume (Bld) [Entitic vol] 9.0 fL Normal 9.0-12.7 [facility] Comment on above: Order Comment: Speci men Type: BLOOD SPECIMEN Ordering Facility: [facility] Address: [address] [place] [address] Performed By: #### 5 7021-8 #### [facility] CLIA [id number] [address] [place] [address] [place] Platelets (Bld) [#/Vol] 312 10*3/uL Normal 150-400 [facility] Comment on above: Order Comment: Speci men Type: BLOOD SPECIMEN Ordering Facility: [facility] Address: [address] [place] [address] Performed By: #### 5 7021-8 #### [facility] CLIA [id number] [address] [place] [address] [place] RBC (Bld) [#/Vol] 4.48 10*6/uL Normal 3.90-5.20 [facility] Comment on above: Order Comment: Speci men Type: BLOOD SPECIMEN Ordering Facility: [facility] Address: [address] [place] [address] Performed By: #### 5 7021-8 #### [facility] CLIA [id number] [address] [place] [address] [place] WBC (Bld) [#/Vol] 7.89 10*3/uL Normal 3.70-11.00 [facility] Comment on above: Order Comment: Speci men Type: BLOOD SPECIMEN Ordering Facility: [facility] Address: [address] [place] [address] Performed By: #### 5 7021-8 #### [facility] CLIA [id number] [address] [place] [address] [place] HBV surface Ag Ser Qlon - HBV surface Ag Ql (S) Negative Normal Negative [facility] Comment on above: Order Comment: Speci men Type: BLOOD SPECIMEN Ordering Facility: [facility] Address: [address] [place] [address] Performed By: #### T SPN #### [facility] CLIA [id number] [address] [place], [place] [address] [id number], [place] [address] [place] HCV Ab Ser Qlon 07-31-2024 HCV Ab Ql (S) Negative Normal Negative [facility] Comment on above: Order Comment: Speci men Type: BLOOD SPECIMEN Ordering Facility: [facility] Address: [address] [place] [address] Result Comment: The result suggests no evidence of active infection with Hepatitis C virus. Should recent infection be suspected, repeat testing may be considered 4-6 weeks after this draw. Performed By: #### T SPN #### [facility] CLIA [id number] [address] [place] [address] [place] HIGH RISK HUMAN PAPILLOMA RHINA (HPV), PCR FOR DETECTION AND GENOTYPINGon 07-31-2024 HPV 16 Ag Ql (Unsp spec) Not detected Normal Not detected [facility] Comment on above: Order Comment: Speci men Type: FLUID SPECIMEN Ordering Facility: [facility] Address: [address] [place] [address] Performed By: #### L [id number] #### [facility] CLIA [id number] [address] [place] [address] [place] HPV 18 Ag Ql (Unsp spec) Not detected Normal Not detected [facility] Comment on above: Order Comment: Speci men Type: FLUID SPECIMEN Ordering Facility: [facility] Address: [address] [place] [address] Performed By: #### L [id number] #### [facility] CLIA [id number] [address] [place] [address] [place] HPV 31+33+35+39+45+51+5 2+56+58+59+66+68 DNA MICHAEL+probe Ql (Cvx) Not detected Normal Not detected [facility] Comment on above: Order Comment: Speci men Type: FLUID SPECIMEN Ordering Facility: [facility] Address: [address] [place] [address] Result Comment: High Risk HPV Other Type includes HPV types 31, 33, 35, 39, 45, 51, 52, 56, 58, 59, 66 and 68. Performed By: #### L [id number] #### [facility] CLIA [id number] [address] [place] [address] [place] HIV 1+2 Ab IA Qlon 5 HIV 1 and 2 Ab IA.rapid Nom (S/P/Bld) Normal [facility] Comment on above: Order Comment: Speci men Type: BLOOD SPECIMEN Ordering Facility: [facility] Address: [address] [place] [address] Result Comment: Test not indicated. Performed By: #### T SPN #### [facility] CLIA [id number] [address] [place] [address] [place] HIV 1+2 Ab+HIV1 p24 Ag IA Ql Non-Reactive Normal Nonreactive [facility] Comment on above: Order Comment: Speci men Type: BLOOD SPECIMEN Ordering Facility: [facility] Address: [address] [place] [address] Performed By: #### T SPN #### [facility] CLIA [id number] [address] [place] [address] [place] HIV immunoassay testing algorithm interpretation (S/P/Bld) [Interp] Normal [facility] Comment on above: Order Comment: Speci men Type: BLOOD SPECIMEN Ordering Facility: [facility] Address: [address] [place] [address] Result Comment: No e vidence of HIV-1 or HIV-2 infection. Should recent infection be suspected, repeat testing may be considered 2-3 weeks after this draw. [place] Rev. Code 3701.243(E): This information has been disclosed to you from confidential records protected from disclosure by state law. ???You shall make no further disclosure of this information without the specific, written, and informed release of the individual to whom it pertains or as otherwise permitted by state law. A general authorization for the release of medical or other information is not sufficient for the purpose of the release of HIV test results or diagnoses. Performed By: #### T SPN #### [facility] CLIA [id number] [address] [place] [address] [place] HbA1c (Bld)on 07-31-2024 Average glucose Estimated from glycated hemoglobin (Bld) [Mass/Vol] 82 mg/dL Normal [facility] Comment on above: Order Comment: Speci men Type: FLUID SPECIMEN Ordering Facility: [facility] Address: [address] [place] [address] Result Comment: eAG: (Estimated average glucose) is a calculated value from HgbA1c and is patient account representative of the average blood glucose level in the last 2-3 month period. Performed By: #### L [id number] #### [facility] CLIA [id number] [address] [place] [address] [place] HbA1c (Bld) [Mass fraction] 4.5 % Normal 4.3-5.6 [facility] Comment on above: Order Comment: Speci men Type: FLUID SPECIMEN Ordering Facility: [facility] Address: [address] [place] [address] Result Comment: Amer [place] Diabetes Association guidelines indicate that patients with HgbA1c in the range 5.7-6.4% are at increased risk for development of diabetes, and intervention by lifestyle modification may be beneficial. HgbA1c greater or equal to 6.5% is considered diagnostic of diabetes. Performed By: #### L [id number] #### [facility] CLIA [id number] [address] [place] [address] [place] PAP TESTon 07-31-2024 ADEQUACY Satisfactory for interpretation. Normal [facility] Comment on above: Order Comment: Speci men Type: FLUID SPECIMEN Ordering Facility: [facility] Address: [address] [place] [address] Performed By: #### L [id number] #### [facility] CLIA [id number] [address] [place] [address] [place] CASE REPORT Normal [facility] Comment on above: Order Comment: Speci men Type: FLUID SPECIMEN Ordering Facility: [facility] Address: [address] [place] [address] Result Comment: Gyne cologic Cytology Report Case: [id number] Authorizing Provider: Annie Thakur APRN.CNM Collected: 07/31/2024 09:53 AM Ordering Location: OB/Gynecology Received: 07/31/2024 12:21 PM First Screen: Nica Arguello CT, ASCP Specimen: Pap Test, ThinPrep, Cervix Performed By: #### L [id number] #### [facility] CLIA [id number] [address] [place] [address] [place] CLINICAL HISTORY, CYTOLOGY, PUBLIC WELFARE DIRECTOR Routine Exam Normal [facility] Comment on above: Order Comment: Speci men Type: FLUID SPECIMEN Ordering Facility: [facility] Address: [address] [place] [address] Performed By: #### L [id number] #### [facility] CLIA [id number] [address] [place] [address] [place] FINAL PERFORMING LAB Normal [facility] Comment on above: Order Comment: Speci men Type: FLUID SPECIMEN Ordering Facility: [facility] Address: [address] [place] [address] Result Comment: Tech nical component, medicine assistant screening performed at [facility], [address] [place] [address] CLIA# [id number] Diagnostic interpretation performed at [facility], [address] [place] [address] CLIA# [id number] Dielectric Machine Operator: Timi Floyd M.D. Performed By: #### L [id number] #### [facility] CLIA [id number] [address] [place] [address] [place] INTERPRETATION, CYTOLOGY, PUBLIC WELFARE DIRECTOR Normal [facility] Comment on above: Order Comment: Speci men Type: FLUID SPECIMEN Ordering Facility: [facility] Address: [address] [place] [address] Result Comment: Nega tive for intraepithelial lesion or malignancy. Performed By: #### L [id number] #### [facility] CLIA [id number] [address] [place] [address] [place] LMP 06/01/2024 Normal [facility] Comment on above: Order Comment: Cydney tang Type: FLUID SPECIMEN Ordering Facility: [facility] Address: [address] [place] [address] Performed By: #### L [id number] #### [facility] CLIA [id number] [address] [place] [address] [place] PAP DISCLAIMER COMMENT The Pap Smear is a screening test for cervical cancer. False negative results occur with all screening tests, emphasizing the need for rescreening at recommended intervals, and clinical correlation. Normal [facility] Comment on above: Order Comment: Cydney tang Type: FLUID SPECIMEN Ordering Facility: [facility] Address: [address] [place] [address] Performed By: #### L [id number] #### [facility] CLIA [id number] [address] [place] [address] [place] PAP HYPERION ESSBASE DEVELOPER COMMENT This specimen has been analyzed by the ThinPrep Imaging System, an automated imaging and review system, which assists the laboratory in evaluating cells on ThinPrep Pap tests. Following automated imaging, selected maki from every slide are reviewed by a medicine assistant. Normal [facility] Comment on above: Order Comment: Speci kitty Type: FLUID SPECIMEN Ordering Facility: [facility] Address: [address] [place] [address] Performed By: #### L [id number] #### [facility] CLIA [id number] [address] [place] [address] [place] POC HUMAN RESOURCES CLERK ULTRASOUNDon 07-31-19 Indication Viability; confirm cardiac activity Impression Single intrauterine gestational sac, CRL is appropriate for clinical dates, corresponding to KIA cardiac activity is visualized Recommendations Follow up for NT scan if desired Method Transvaginal ultrasound examination Salas . Number of embryos: 1 Dating LMP on: 06/01/2024 GA by LMP 8 w + 4 d KIA by LMP: 03/08/2025 Ultrasound examination on: 07/31/2024 GA by U/S based upon: CRL GA by U/S 8 w + 0 d KIA by U/S: 03/12/2025 Assigned: based on the LMP, selected on 07/31/2024 Assigned GA 8 w + 4 d Assigned KIA: 03/08/2025 Biometry Standard CRL 16.3 mm 8w 0d 10% Hadlock Assessment Gestational sac: visualized Location: intrauterine Yolk sac: visualized Embryo: visualized CRL 16.3 mm 8w 0d 10% Hadlock Cardiac activity: present General Evaluation Cardiac activity present Performed By: Annie Thakur CNM Read By: Annie Thakur CNM MATERNAL MEDICINE [facility] Radiology Study observation (narrative) [facility] RUBELLA IGG ANTIBODYon 07-31 RUBELLA IGG AB, QUAL Positive Normal Positive [facility] Comment on above: Order Comment: Speci men Type: FLUID SPECIMEN Ordering Facility: [facility] Address: [address] [place] [address] Result Comment: The result suggests recent or past exposure to Rubella virus or history of Rubella vaccination. Positive result may also be seen due to presence of passively-transferred antibodies. Please correlate with patient's history. Performed By: #### L [id number] #### [facility] CLIA [id number] [address] [place] [address] [place] Reagin and Treponema pallidu m IgG and IgM [Interp]on 07-31-2024 T. pallidum IgG+IgM IA Ql (S) Non-Reactive Normal Nonreactive [facility] Comment on above: Order Comment: Speci men Type: BLOOD SPECIMEN Ordering Facility: [facility] Address: [address] [place] [address] Performed By: #### T SPN #### [facility] CLIA [id number] [address] [place] [address] [place] Reagin+T pallidum IgG+IgM Se rPl-Impon 07-31-2024 Reagin and Treponema pallidum IgG and IgM [Interp] Cannot exclude recent Treponemal infection if specimen collected within 7-10 days after appearance of suspect lesions or 2-3 weeks after an exposure. Clinical correlation is required. Normal [facility] Comment on above: Order Comment: Speci men Type: BLOOD SPECIMEN Ordering Facility: [facility] Address: [address] [place] [address] Performed By: #### T SPN #### [facility] CLIA [id number] [address] [place] [address] [place] TYPE + SCREEN PRENATALon ABO O Normal [facility] Comment on above: Order Comment: Speci men Type: BLOOD SPECIMEN Ordering Facility: [facility] Address: [address] [place] [address] Performed By: #### T SPN #### [facility] CLIA [id number] [address] [place] [address] [place] Rh Nom (Bld) Positive Normal [facility] Comment on above: Order Comment: Speci men Type: BLOOD SPECIMEN Ordering Facility: [facility] Address: [address] [place] [address] Performed By: #### T SPN #### [facility] CLIA [id number] [address] [place] [address] [place] TYPE AND SCREEN EXPIRATION 08/03/2024 23:59 Normal [facility] Comment on above: Order Comment: Speci men Type: BLOOD SPECIMEN Ordering Facility: [facility] Address: [address] [place] [address] Performed By: #### T SPN #### [facility] CLIA [id number] [address] [place] [address] [place] POCT URINE PREGNANCYon 10-24 HCG ( test) Ql (U) [facility] Comment on above: Order Comment: Relea se to patient->Immediate HCG ( test) Ql (U) Negative [facility] Comment on above: Order Comment: Relea se to patient->Immediate POCT RAPID STREP TESTon 07-17 EXPIRATION DATE: [facility] Comment on above: Order Comment: Relea se to patient->Immediate EXPIRATION DATE: 06/06/2024 [facility] Comment on above: Order Comment: Relea se to patient->Immediate LOT NUMBER [facility] Comment on above: Order Comment: Relea se to patient->Immediate LOT NUMBER [id number] [facility] Comment on above: Order Comment: Relea se to patient->Immediate S. pyogenes Ag IA Ql (Unsp spec) Negative [facility] Comment on above: Order Comment: Relea se to patient->Immediate S. pyogenes Ag IA Ql (Unsp spec) [facility] Comment on above: Order Comment: Relea se to patient->Immediate POCT URINE PREGNANCYon 01-16 EXPIRATION DATE: [facility] Comment on above: Order Comment: Relea se to patient->Immediate EXPIRATION DATE: 03/16/2024 [facility] Comment on above: Order Comment: Relea se to patient->Immediate HCG ( test) Ql (U) [facility] Comment on above: Order Comment: Relea se to patient->Immediate HCG ( test) Ql (U) Negative [facility] Comment on above: Order Comment: Relea se to patient->Immediate LOT NUMBER [id number] [facility] Comment on above: Order Comment: Relea se to patient->Immediate LOT NUMBER [facility] Comment on above: Order Comment: Relea se to patient->Immediate MEDICAL STAFFon 11-19-2022 Caddie Authentication Interface Message Text Reports good rest and appetite. Voiding QS. Up without difficulty. Pain well controlled with PO meds. good She is requesting discharge. She denies concerns about depression and is aware of resources if she experiences any increased anxiety/depression. I have discussed the risks and benefits of a long acting reversible contraceptive method with the patient and explained that this can be placed during this hospital stay. I have also discussed the alternative outcomes of not choosing this option. She has declined contraception prior to discharge. Visit Vitals BP 124/87 Pulse 70 Temp 98.6 F (37 C) Resp 16 Wt 63.5 kg (140 lb) LMP 02/15/2022 (Exact Date) Unknown BMI 25.61 kg/m? OB Status Recent Smoking Status Never BSA 1.67 m? Breasts soft, nipples intact, Abdomen soft, fundus firm non-tender, perineum intact/healing, lochia sm. 26 year old ppd 2 Stable baby boy Breast Continue PP care support Teaching Discharge Normal [facility] PATIENT INSTRUCTIONSon 11-19 Caddie Authentication Interface Message Text [facility] [phone] Pamper Yourself! Congratulations on the of your baby! Finally, you've achieved the culmination of all your hopes and dreams. Now the real work begins, and we hope this little book can answer a few questions and allay any fears you may have as you move forward in the period. In the beginning, it's often hit or miss. Did you meet the baby's need or is he still crying? If he did stop, WHAT did you do and can you do it again! Within six weeks, you will have this communication dance down like a fine ballet. So pamper yourself. Get good friends or family to help support you while you get to know your baby. We are sure you have heard how important it is to get rest at this time. Here are some practical suggestions. Have family or friends bring dinner in for the first couple of weeks. This is especially nice if you have other children. Try not to live on pizza if you can! Forget the housework for a while, or let a friend or family member help. We know that may really be difficult for you, but your body, mind, and spirit will be in better shape if you can get rest. Pamper yourself. Take charge and ask for help! Maternal Changes Uterus and Lochia (Bleeding) Immediately after your uterus begins to contract. These contractions are commonly called after pains. If you place your hands on your lower abdomen, you can feel your uterus as a hard swelling that will gradually disappear as it becomes smaller. mothers may notice an increase in contractions during . Keeping your bladder empty helps your uterus to contract effectively and prevents too much bleeding. Lying face down with a pillow under your lower abdomen can be effective in easing after pains. When you first lie on your stomach you might have fairly severe cramps for about 5 minutes but then you experience complete and total relief. Ibuprofen or similar anti-inflammatories work especially well for this type of pain. Lochia is the vaginal discharge that occurs while you are healing after you have a baby. The flow may last 4-6 weeks. The amount of bleeding varies with individual mothers. As a rule of thumb, you will bleed like a normal heavy period for the first week or so. It is common for a mother to have a small amount of bleeding while lying down and to flood when she gets out of bed. After being up for a moment or two the bleeding should return to a normal amount. This is more common during the first one or two days after . The bleeding will at first be bright red. It will private branch exchange service adviser several days to dark red, to brown, to brownish yellow, and then to white. It should not have a bad or foul odor. Let your bleeding be your guide. If you are doing too much at home, your bleeding will increase and become bright red again. This will be your sign to take it easy. mothers often have no periods while multimedia project manager. Bottle feeding mothers can expect to have their first period around 6-8 weeks . Warning Signs - Call the office if Present. Excessive amount of bleeding which saturates more than 1 pad an hour Foul or bad odor of the discharge Tender or painful uterus Fever more than 100.4 F (38 C) Perineum and Vagina If you have a tear or required an episiotomy, stitches that were placed mill dissolve on their own. The stretching of your vagina and any non-stitched tears will take about 2-4 weeks to heal. At the hospital you will receive a small squeeze bottle. Fill this with warm water and spray on your perineum to dilute your urine as you empty your bladder. This will ease any stinging you may have. Ice packs may be applied in the hospital. At home, sitting in a tub full of warm water 3-4 times a day for 30 minutes can ease discomfort. Basically., you should feel better every day. Remember to listen to your body. If you do too much you will have more discomfort. Call the office if the pain in your perineum or vaginal area increases after you are home. Care of the breasts for lactating and non-lactating mothers The most important thing to remember is that is a learning process for both you and the baby. Babies are born knowing how to suck but not necessarily how to breastfeed. Even if you have breastfed a baby before, remember that each baby is different, and has his or her own characteristics and personality. The first few days your breasts will produce colostrum. This is a thick, yellowish, sticky fluid. Colostrum is produced before milk to provide your baby with important nourishment and infection fighting antibodies. After 3-4 days your breasts will feel full, hard and uncomfortable. To relieve this discomfort, put your baby to your breast frequently. You may experience a little nipple discomfort for a few days until you become (more content not included)... [facility] NOTEon 11-18-2022 Caddie Authentication Interface Message Text 11/18/22 0545 History Consult Breastfed Previous Child Yes Breastfed Previous Child for 3-6 months (pumped also) Breasts/Nipples Left Breast Soft;Reported by patient Right Breast Soft;Reported by patient Left Nipple Intact;Tender;Reporte d by patient Right Nipple Intact;Tender;Reporte d by patient Interventions General Interventions [id number];On cue feeding;Assist to awaken infant Nipple Management Assess Correct latch;Repositioned correctly;Deeper, asymmetrical latch (Discussed with pt) Infant Weight Loss Assessed infant output;Encouraged frequent feeds Assessment Status BF well-States BF well; improving;Reported by patient Position Varied positions Maternal Stress Level Relaxed;Confident;Rep orted by patient;Observed by Support System Positive Maternal Interaction with Attentive;Affectionat e Breast Pump Verbalizes understanding of expression Nipple Shield N/A-Does not apply Infant Assessment Infant Location With Mother in room Position Preferred Side Lying Infant Interest Exhibits feeding cues;Latches easily;Reported by mother;Observed by LC Infant State Relaxed;Sleepy;Observ ed by LC Infant Feeding Assessment Strong suck;Infant output appropriate for age;Frequency of feedings appropriate;Encourage d frequent feeds;Gentle chin pull demonstrated;Retracts /tucks lips;Reported by mother;Observed by Infant Oral Assessment Normal tongue, palate, jaw Supplementation Given No Spoke with pt who is an experienced mother who states that her first child had a tongue tie with a revision. Pt inquiring if current might have a tongue tie as well. noted to be able to get tongue pat bottom lip. Infant did appear to have a receding chin while tucking in bottom lip at times. Discussed with pt to try different positions while and see if that helps with infant's latch. Pt voiced understanding. noted to be asleep in mother's arms. Told pt to call out if she needs any BF assistance or has any questions. Reviewed -24 hours instructions, including: at least 8 feedings, watching for rooting and feeding cues, such as opens mouth, sticks tongue out, brings hands to mouth, and rapid eye movement. Discussed feeding on demand and expected output of 1 wet and 1 dirty diaper and by day 2, 8-12 feedings and 2-2 wet and 1-2 dirty diapers. Encouraged rooming in and skin to skin and avoidance of a pacifier for first few weeks, until , is well established. Encouraged use of feeding record, to track feedings, output, and skin to skin. Discussed importance of a deep latch, feeling tugging, no pinching, with lips flanged out and chin touching breast. Encouraged to listen and watch for swallowing. Cluster feedings discussed. Voiced understanding. number left on board, to call with and questions, concerns or assistance needed. [facility] Caddie Authentication Interface Message Text 11/18/22 1220 History Consult Patient unavailable;Other/com ment (Pt sleeping) [facility] Caddie Goodzeration Interface Message Text 11/18/22 1032 History Consult Other/comment (Pt has visitors at this time and requests that come back later.) [facility] MEDICAL STAFFon 11-18-2022 Caddie Authentication Interface Message Text Reports good rest and appetite. Voiding QS. Up without difficulty. Pain well controlled with PO meds. good She is requesting discharge tomorrow. She denies concerns about depression and is aware of resources if she experiences any increased anxiety/depression. I have discussed the risks and benefits of a long acting reversible contraceptive method with the patient and explained that this can be placed during this hospital stay. I have also discussed the alternative outcomes of not choosing this option. She has declined contraception prior to discharge. Visit Vitals BP 105/64 Pulse 61 Temp 98.5 F (36.9 C) Resp 16 Wt 63.5 kg (140 lb) LMP 02/15/2022 (Exact Date) Unknown BMI 25.61 kg/m? OB Status Recent Smoking Status Never BSA 1.67 m? Breasts soft, nipples intact, Abdomen soft, fundus firm non-tender, perineum intact/healing, lochia sm. 26 year old ppd 1 Stable Breast Continue PP care support Teaching [facility] H&Jose 11-17-2022 Caddie Authentication Interface Message Text Attestation signed by Sharyn Waldron MD at 11/17/222105 I have reviewed this patient's H noted in triage. If persists, will need labs and L [facility] Obstetrics Admission Note Patient Name: Yanet Banks : 1995 11/17/2022 8:12 PM MEDICAL DECISION MAKING: records reviewed. Case discussed with Dr. Waldron, corrugator operator helper Differential Diagnosis:n/a Interventions: NST Assessment/Plan 26 year old 39w2d wks admitted for active labor Diagnoses: Active Problems: Supervision of other normal , antepartum 1. Admit to FBBC for NCB 2. status reassuring 3. Plans NCB 4. Dispo inpatient 5. Follow-up 6 weeks pp Electronically signed by: Dustin Benavides APRN, 11/17/2022 8:12 PM NTSV (Y/N): N No T Yes S Yes V Yes Admitting Diagnosis: R/O LABOR Patient Active Problem List Diagnosis Supervision of other normal , antepartum Planning FBBC, paperwork signed 10/12/22 profile complete 05/24/22 O+ 1 hr GTT 88 GBS HPI: 26 year old 39w2d wks by Early US admitted for active labor. Cervical change in triage from 4-6cm. She is planning NCB in FB. ROS: 14 point review of systems completed. General: Benign Cardiovascular: Benign Respiratory: Benign Gastrointestinal: Benign Genitourinary: Benign Musculoskeletal: Negative for: muscle weakness Neurological: Benign Psychiatric: Benign Integumentary: Benign Endocrine: Benign All other systems negative Estimated Date of Delivery: 11/22/22 OB History: OB History Para Term AB Living 2 1 1 1 SAB IAB Ectopic Multiple Live Births # Outcome Date GA Lbr Glen/2nd Weight Sex Delivery Anes PTL Lv 2 Current 1 Term 12/30/20 M Vag-Spont None Past Medical History: has a past medical history of Chickenpox. Past Surgical History: has no past surgical history on file. Family History: Family History Problem Relation Name Age of Onset Rheum Arthritis Mother Diabetes Maternal Grandmother Rheum Arthritis Maternal Grandmother Stroke Maternal Grandfather Breast Cancer Paternal Grandmother Social History: Social History Tobacco Use Smoking status: Never Smokeless tobacco: Never Vaping Use Vaping Use: Never used Substance Use Topics Alcohol use: Not Currently Drug use: Never Allergies: Allergies Allergen Reactions Pertussis Vaccines Hives Zithromax [Azithromycin] Hives Medications: No current facility-administered medications on file prior to encounter. Current Outpatient Medications on File Prior to Encounter Medication Sig Dispense Refill vit no.124/iron/folic ( VITAMIN ORAL) Take by mouth Vitals: 11/17/22 1632 11/17/22 1648 BP: (!) 131/91 139/90 Pulse: 80 75 Resp: 16 16 Temp: 98.1 F (36.7 C) Exam: GEN: awake, alert, oriented and in no distress HEENT: normocephalic, atraumatic BREAST: deferred CHEST: Lungs clear to auscultation; regular rate and rhythm ABD: gravid and nontender EXT: extremities normal, warm and well-perfused; no cyanosis, clubbing, or edema NEURO: Grossly normal INTEGUMENTARY: Skin color, texture, turgor normal. No rashes or lesions. PSYCH: Mood congruent Pelvic Exam: FHT: 140 bpm; moderate variability; + accels; - decels; Reactive TOCO: 3-5 Cervix Exam: DILATION # Dilation: 6 cm (11/17/221847) EFFACEMENT # Effacement (%): 90 (11/17/221847) STATION # Station: -1 (11/17/221847) Estimated weight: 3300 [facility]ms [facility] Labs: ABO Grouping Date Value Ref Range Status 05/24/2022 O Final Rh Type Date Value Ref Range Status 05/24/2022 Positive Final Antibody Screen Date Value Ref Range Status 05/24/2022 Negative Final HEMOGLOBIN Date Value Ref Range Status 11/08/2022 14.2 11.2 - 15.7 G/DL Final HEMATOCRIT Date Value Ref Range Status 11/08/2022 39.2 34.0 - 49.0 % Final HEPATITIS B SURFACE ANTIGEN Date Value Ref Range Status 05/24/2022 NEGATIVE NEGATIVE Final CHLAMYDIA TRACHOMATIS RNA, TMA Date Value Ref Range Status 04/12/2022 NOT DETECTED NOT DETECTED Final Comment: Reference Range = NOT DETECTED RUBELLA IGG Date Value Ref Range Status 05/24/2022 3.15 Index Value Final Comment: (NOTE) INDEX VALUE INTERPRETATION <0.90 NEGATIVE 0.90-0.99 EQUIVOCAL >=1.00 POSITIVE A POSITIVE result indicates that the patient has antibody to Rubella. It does not differentiate between an active or past infection. The clinical diagnosis must be interpreted in conjunction with the clinical signs and symptoms of the patient. The presence of IgG Rubella antibody is consistent with immunity. RPR (SYPHYLLIS) Date Value Ref Range Status 11/08/2022 NON REACTIVE NON REACTIVE Final Glucose (more content not included)... [facility] L&D DELIVERYon 11-17-2022 Caddie Authentication Interface Message Text [facility] Spontaneous Vaginal Delivery Note Delivery Summary for Yanet Banks : 1995 Information for the patient's : Partha Banks [[id number]] Delivery Information: Date/Time of Delivery: 11/17/2022 8:50 PM By: Normal Spontaneous Vaginal Delivery Clinician: Dustin Benavides Maternal Information: Episiotomy: None Lacerations: None Repair suture: n/a Repair # of packets: 0 Blood loss (ml): 200 Information for the patient's : Partha Banks [[id number]] Morris Information: Living?: Living Presentation/position : Cephalic Left Occiput Anterior Resuscitation: Tactile Stimulation;Bulb Suction Anesthesia: None Cord information: Vessels 3 Vessels Disposition of cord blood Lab Blood gases sent? No Complications None Placenta: Delivered Date Removal Spontaneous Appearance Intact Measurements: Weight APGARS One minute Five minutes Ten minutes Totals: 8 9 Additional information: Observed anomalies Was this patient at risk for pre-term delivery > 24 and < 34 weeks gestation? No Was this patient at risk for pre-term delivery >16 and < 37 weeks gestation? No. Delivery Comments: Head delivered spontaneously over intact perineum. Nuchal cord is not present. With the next contraction, The left shoulder is anterior and released with maternal effort and gentle downward pressure. Posterior shoulder followed easily. Morris to maternal abdomen, dried, and stimulated. Vigorous cry. Cord clamping was delayed until cord no longer pulsating, the cord was cut by FOB. Infant placed skin to skin with FOB. Yanet assisted from tub to bed by RN and CNM. Placenta delivered intact and spontaneously. Uterus firm, bleeding small. Vagina and perineum inspected. no lacerations present. Hemostasis assured. Mom and baby well. Free Lance Artist verified all counts correct. Dr. Waldron notified of . Electronically signed by: Dustin Benavides APRN, 11/17/2022 9:38 PM [facility] PATIENT INSTRUCTIONSon 11-17 Caddie Authentication Interface Message Text Thank you for choosing [facility] [place]. It was a pleasure to see you today! Please call [phone] for all your office needs. Your opinion matters! You should receive a patient satisfaction survey in follow up in your e-mail in the next couple days. This is your time to provide us with genuine feedback that can better improve processes for future visits. We aim to provide our patients with safe and excellent care. If you were satisfied with your care today, please tell everyone. If you were not satisfied with your care today, please be sure to let us know, so that we can improve your experience. We are available via [employer] messages and phone calls during regular business hours, but if there is an urgent need or you need to be seen after hours (in triage or the ER) please call our after hours number [phone]. You will be connected to the carbon capture power plant operator physician or pulverizer mill operator. If a hospital visit is recommended please always go to [facility] located at [address] [place] [address] in [place]. Getting your test results is easier than ever! There are several ways you could receive results If you are a [employer] user this allows you rapid access to results. Most test results are released within 24 hours and may be viewable to you even before your provider reviews the results, or Clinical staff may call you with any abnormal results to discuss further your plan of care with the provider, or you could receive a letter for normal results. Attention [employer] Users! Want to send us a non urgent message, check your test results, request a medication refill, or schedule an appointment at your convenience? It's fast, safe, and easy. Just log in to [email or web address] and enter your user name and password. If you don't have a user name or password please ask one of our very qualified staff members and they will be happy to assist you in getting signed up. These messages are checked during office hours only. Please still call the office or physician carbon capture power plant operator with any urgent medical issues. For technical support, call If you had labs ordered today you can go to any [facility] lab and walk in with no appointment needed. If any imaging was ordered for you, central scheduling should call you within the week. If you do not hear from them, you can call them at [phone]. Any outpatient referrals with be taken care of by our staff. If you do not hear from their office within 1 week, please call our office at [phone] so we can check on the status for you. We all want to Thank you for choosing [facility]! Normal Provider Locations PATIENT INSTRUCTIONSon 11-09 Caddie Authentication Interface Message Text Thank you for choosing [facility] [place]. It was a pleasure to see you today! Please call [phone] for all your office needs. Your opinion matters! You should receive a patient satisfaction survey in follow up in your e-mail in the next couple days. This is your time to provide us with genuine feedback that can better improve processes for future visits. We aim to provide our patients with safe and excellent care. If you were satisfied with your care today, please tell everyone. If you were not satisfied with your care today, please be sure to let us know, so that we can improve your experience. We are available via Hoopt[employer] messages and phone calls during regular business hours, but if there is an urgent need or you need to be seen after hours (in triage or the ER) please call our after hours number [phone]. You will be connected to the carbon capture power plant operator physician or pulverizer mill operator. If a hospital visit is recommended please always go to [facility] located at [address] [place] [address]. Getting your test results is easier than ever! There are several ways you could receive results If you are a [employer] user this allows you rapid access to results. Most test results are released within 24 hours and may be viewable to you even before your provider reviews the results, or Clinical staff may call you with any abnormal results to discuss further your plan of care with the provider, or you could receive a letter for normal results. Attention [employer] Users! Want to send us a non urgent message, check your test results, request a medication refill, or schedule an appointment at your convenience? It's fast, safe, and easy. Just log in to [email or web address] and enter your user name and password. If you don't have a user name or password please ask one of our very qualified staff members and they will be happy to assist you in getting signed up. These messages are checked during office hours only. Please still call the office or physician carbon capture power plant operator with any urgent medical issues. For technical support, call If you had labs ordered today you can go to any [facility] lab and walk in with no appointment needed. If any imaging was ordered for you, central scheduling should call you within the week. If you do not hear from them, you can call them at [phone]. Any outpatient referrals with be taken care of by our staff. If you do not hear from their office within 1 week, please call our office at [phone] so we can check on the status for you. We all want to Thank you for choosing [facility]! Normal Provider Locations PROGRESS NOTESon 11-09-2022 Caddie Authentication Interface Message Text Pt presents today for routine OB visit @ 38+1 +FM, no bleeding, no LOF Feeling well overall, ready to meet baby Hurt her back sitting for a long period of time Discussed comfort measures All set for FBBC She has no other questions or concerns S=D RTO 1 week Normal Provider Locations Caddie Authentication Interface Message Text Patient Active Problem List Diagnosis Date Noted ? Supervision of other normal , antepartum 04/27/2022 Planning FBBC, paperwork signed 10/12/22 profile complete 05/24/22 O+ 1 hr GTT 88 GBS Urine Glucose negative Protein negative Leukocytes positive - 1+ RBC negative Nitrites negative Ketones negative Patient presents for OB visit. . KIA 11/22/2022. 38w1d today. No other concerns. Denies vaginal bleeding/LOF Denies contractions Denies edema Great FM O positive. UC/STD screening neg. Hep B/C negative. Rubella Immune. HIV/RPR NR. 1 hour Gtt 88. Most recent Hgb 14.2. Pertussis allergy. GBS negative. Normal Provider Locations COMPLETE BLOOD COUNTon 11-08 Erythrocyte distribution width (RBC) [Ratio] 12.3 % Normal <15.1 Provider Locations Hematocrit (Bld) [Volume fraction] 39.2 % Normal 34.0-49.0 Provider Locations Hemoglobin (Bld) [Mass/Vol] 14.2 g/dL Normal 11.2-15.7 Provider Locations MCH (RBC) [Entitic mass] 33.6 pg Normal 26.0-34.0 Provider Locations MCHC (RBC) [Mass/Vol] 36.2 g/dL High 30.7-35.5 Provider Locations MCV (RBC) [Entitic vol] 92.7 fL Normal 80.0-100.0 Provider Locations Platelet mean volume (Bld) [Entitic vol] 10.0 fL Normal 7.2-11.7 Provider Locations Platelets (Bld) [#/Vol] 271 10*3/uL Normal 140-400 Provider Locations RBC (Bld) [#/Vol] 4.23 10*6/uL Normal 3.95-5.26 Provi jv Locations WBC (Bld) [#/Vol] 8.7 10*3/uL Normal 3.5-10.9 Provid er Locations RPR REFLEX TO TPPAon 023 Reagin Ab RPR Ql (S) Non-Reactive Normal NON REACTIVE Provider Locations PATIENT INSTRUCTIONSon 11-02 Caddie Authentication Interface Message Text Thank you for choosing [facility] [place]. It was a pleasure to see you today! Please call [phone] for all your office needs. Your opinion matters! You should receive a patient satisfaction survey in follow up in your e-mail in the next couple days. This is your time to provide us with genuine feedback that can better improve processes for future visits. We aim to provide our patients with safe and excellent care. If you were satisfied with your care today, please tell everyone. If you were not satisfied with your care today, please be sure to let us know, so that we can improve your experience. We are available via [employer] messages and phone calls during regular business hours, but if there is an urgent need or you need to be seen after hours (in triage or the ER) please call our after hours number [phone]. You will be connected to the carbon capture power plant operator physician or pulverizer mill operator. If a hospital visit is recommended please always go to [facility] located at [address] [facility] in [place]. Getting your test results is easier than ever! There are several ways you could receive results If you are a [employer] user this allows you rapid access to results. Most test results are released within 24 hours and may be viewable to you even before your provider reviews the results, or Clinical staff may call you with any abnormal results to discuss further your plan of care with the provider, or you could receive a letter for normal results. Attention [employer] Users! Want to send us a non urgent message, check your test results, request a medication refill, or schedule an appointment at your convenience? It's fast, safe, and easy. Just log in to [email or web address] and enter your user name and password. If you don't have a user name or password please ask one of our very qualified staff members and they will be happy to assist you in getting signed up. These messages are checked during office hours only. Please still call the office or physician carbon capture power plant operator with any urgent medical issues. For technical support, call If you had labs ordered today you can go to any [facility] lab and walk in with no appointment needed. If any imaging was ordered for you, central scheduling should call you within the week. If you do not hear from them, you can call them at [phone]. Any outpatient referrals with be taken care of by our staff. If you do not hear from their office within 1 week, please call our office at [phone] so we can check on the status for you. We all want to Thank you for choosing [facility]! Normal Provider Locations PROGRESS NOTESon 11-02-2022 Caddie Authentication Interface Message Text Patient Active Problem List Diagnosis Date Noted ? Supervision of other normal , antepartum 04/27/2022 Planning FBBC, paperwork signed 10/12/22 profile complete 05/24/22 O+ 1 hr GTT 88 GBS Urine Glucose negative Protein negative Leukocytes positive - trace RBC negative Nitrites negative Patient here for OB visit. Has no other concerns at this time. +FM O+ RI GBS negative reminded to complete CBC/RPR hgb 13.1/gtt 88 uc/std/pl WNL Pertussis allergy Normal Provider Locations Caddie Authentication Interface Message Text Pt presents today for routine OB visit @ 37+1 +FM, no bleeding, no LOF Feeling well overall, ready to meet baby soon! Final blood work ordered All set for FBBC She has no other questions or concerns S=D RTO 1 week Normal Provider Locations CULTURE, STREP GROUP Bon CULTURE, STREP GROUP B TYPE DESCRIPTION VAGINA/RECTUM SOURCE DESCRIPTION VAGINA/RECTUM CULTURE NO GROUP B STREPTOCOCCI ISOLATED Normal Provider Locations PATIENT INSTRUCTIONSon 10-26 Caddie Authentication Interface Message Text Thank you for choosing [facility] [place]. It was a pleasure to see you today! Please call [phone] for all your office needs. Your opinion matters! You should receive a patient satisfaction survey in follow up in your e-mail in the next couple days. This is your time to provide us with genuine feedback that can better improve processes for future visits. We aim to provide our patients with safe and excellent care. If you were satisfied with your care today, please tell everyone. If you were not satisfied with your care today, please be sure to let us know, so that we can improve your experience. We are available via [employer] messages and phone calls during regular business hours, but if there is an urgent need or you need to be seen after hours (in triage or the ER) please call our after hours number [phone]. You will be connected to the carbon capture power plant operator physician or pulverizer mill operator. If a hospital visit is recommended please always go to [facility] located at [address] [place] [address] in [place]. Getting your test results is easier than ever! There are several ways you could receive results If you are a [employer] user this allows you rapid access to results. Most test results are released within 24 hours and may be viewable to you even before your provider reviews the results, or Clinical staff may call you with any abnormal results to discuss further your plan of care with the provider, or you could receive a letter for normal results. Attention [employer] Users! Want to send us a non urgent message, check your test results, request a medication refill, or schedule an appointment at your convenience? It's fast, safe, and easy. Just log in to [email or web address] and enter your user name and password. If you don't have a user name or password please ask one of our very qualified staff members and they will be happy to assist you in getting signed up. These messages are checked during office hours only. Please still call the office or physician carbon capture power plant operator with any urgent medical issues. For technical support, call If you had labs ordered today you can go to any [facility] lab and walk in with no appointment needed. If any imaging was ordered for you, central scheduling should call you within the week. If you do not hear from them, you can call them at [phone]. Any outpatient referrals with be taken care of by our staff. If you do not hear from their office within 1 week, please call our office at [phone] so we can check on the status for you. We all want to Thank you for choosing [facility]! Normal Provider Locations PROGRESS NOTESon 10-26-2022 Caddie Authentication Interface Message Text Patient Active Problem List Diagnosis Date Noted ? Supervision of other normal , antepartum 04/27/2022 Planning FBBC, paperwork signed 10/12/22 profile complete 05/24/22 O+ 1 hr GTT 88 GBS Urine Glucose negative Protein negative Leukocytes negative RBC negative Nitrites negative Patient here for OB visit. Has no other concerns at this time. +FM O+ RI GBS swab given to patient and explained how to complete. reminded to complete CBC/RPR hgb 13.1/gtt 88 uc/std/pl WNL Pertussis allergy Normal Provider Locations Caddie Authentication Interface Message Text Pt presents today for routine OB visit @ 36+1 +FM, no bleeding, no LOF Feeling well overall, ready to meet baby soon! GBS self collected All set for FBBC She has no other questions or concerns S=D RTO 1 week Normal Provider Locations PATIENT INSTRUCTIONSon 10-12 Caddie Authentication Interface Message Text Thank you for choosing [facility] [place]. It was a pleasure to see you today! Please call [phone] for all your office needs. Your opinion matters! You should receive a patient satisfaction survey in follow up in your e-mail in the next couple days. This is your time to provide us with genuine feedback that can better improve processes for future visits. We aim to provide our patients with safe and excellent care. If you were satisfied with your care today, please tell everyone. If you were not satisfied with your care today, please be sure to let us know, so that we can improve your experience. We are available via [employer] messages and phone calls during regular business hours, but if there is an urgent need or you need to be seen after hours (in triage or the ER) please call our after hours number [phone]. You will be connected to the carbon capture power plant operator physician or pulverizer mill operator. If a hospital visit is recommended please always go to [facility] located at [address] [place] [address]. Getting your test results is easier than ever! There are several ways you could receive results If you are a [employer] user this allows you rapid access to results. Most test results are released within 24 hours and may be viewable to you even before your provider reviews the results, or Clinical staff may call you with any abnormal results to discuss further your plan of care with the provider, or you could receive a letter for normal results. Attention [employer] Users! Want to send us a non urgent message, check your test results, request a medication refill, or schedule an appointment at your convenience? It's fast, safe, and easy. Just log in to [email or web address] and enter your user name and password. If you don't have a user name or password please ask one of our very qualified staff members and they will be happy to assist you in getting signed up. These messages are checked during office hours only. Please still call the office or physician carbon capture power plant operator with any urgent medical issues. For technical support, call If you had labs ordered today you can go to any [facility] lab and walk in with no appointment needed. If any imaging was ordered for you, central scheduling should call you within the week. If you do not hear from them, you can call them at [phone]. Any outpatient referrals with be taken care of by our staff. If you do not hear from their office within 1 week, please call our office at [phone] so we can check on the status for you. We all want to Thank you for choosing [facility] Normal Provider Locations PROGRESS NOTESon 10-12-2022 Caddie Authentication Interface Message Text Routine OB visit @ 34+1 Good FM Denies VB, LOF, or ctx Has 36 week appointment with FBBC scheduled FBBC paperwork signed today, patient remains low risk candidate RPR/CBC ordered S=D RTO 2 weeks Normal Provider Locations Caddie Authentication Interface Message Text Patient Active Problem List Diagnosis Date Noted ? Supervision of other normal , antepartum 04/27/2022 Planning FBBC Urine Glucose positive - 1+ Protein negative Leukocytes negative RBC negative Nitrites negative Ketones negative Patient presents for OB visit. . KIA 11/22/2022. 34w1d today. Reminded that labs are ordered. No other concerns. Denies vaginal bleeding/LOF Has had some BH contractions Denies edema Lots of FM O positive. UC/STD screening neg. Hep B/C negative. Rubella Immune. HIV/RPR NR. 1 hour Gtt 88. Most recent Hgb 13.1. Pertussis allergy. Normal Provider Locations PATIENT INSTRUCTIONSon 09-28 Caddie Authentication Interface Message Text Thank you for choosing [facility] [place]. It was a pleasure to see you today! Please call [phone] for all your office needs. Your opinion matters! You should receive a patient satisfaction survey in follow up in your e-mail in the next couple days. This is your time to provide us with genuine feedback that can better improve processes for future visits. We aim to provide our patients with safe and excellent care. If you were satisfied with your care today, please tell everyone. If you were not satisfied with your care today, please be sure to let us know, so that we can improve your experience. We are available via [employer] messages and phone calls during regular business hours, but if there is an urgent need or you need to be seen after hours (in triage or the ER) please call our after hours number [phone]. You will be connected to the carbon capture power plant operator physician or pulverizer mill operator. If a hospital visit is recommended please always go to [facility] located at [address] [place] [address]. Getting your test results is easier than ever! There are several ways you could receive results If you are a [employer] user this allows you rapid access to results. Most test results are released within 24 hours and may be viewable to you even before your provider reviews the results, or Clinical staff may call you with any abnormal results to discuss further your plan of care with the provider, or you could receive a letter for normal results. Attention [employer] Users! Want to send us a non urgent message, check your test results, request a medication refill, or schedule an appointment at your convenience? It's fast, safe, and easy. Just log in to [email or web address] and enter your user name and password. If you don't have a user name or password please ask one of our very qualified staff members and they will be happy to assist you in getting signed up. These messages are checked during office hours only. Please still call the office or physician carbon capture power plant operator with any urgent medical issues. For technical support, call If you had labs ordered today you can go to any [facility] lab and walk in with no appointment needed. If any imaging was ordered for you, central scheduling should call you within the week. If you do not hear from them, you can call them at [phone]. Any outpatient referrals with be taken care of by our staff. If you do not hear from their office within 1 week, please call our office at [phone] so we can check on the status for you. We all want to Thank you for choosing [facility] Normal Provider Locations PROGRESS NOTESon 09-28-2022 Caddie Authentication Interface Message Text Patient Active Problem List Diagnosis Date Noted ? Supervision of other normal , antepartum 04/27/2022 Planning FBBC Urine Glucose negative Protein negative Leukocytes positive - trace RBC negative Nitrites negative Here for ob check O+ gtt 88/hgb 13.1 +fm Normal Provider Locations Caddie Authentication Interface Message Text + movement Feels good Discussed FBBC consent she needs to bring in No other concerns [email or web address] Normal Provider Locations PATIENT INSTRUCTIONSon 09-12 Caddie Authentication Interface Message Text Thank you for choosing [facility] [place]. It was a pleasure to see you today! Please call [phone] for all your office needs. Your opinion matters! You should receive a patient satisfaction survey in follow up in your e-mail in the next couple days. This is your time to provide us with genuine feedback that can better improve processes for future visits. We aim to provide our patients with safe and excellent care. If you were satisfied with your care today, please tell everyone. If you were not satisfied with your care today, please be sure to let us know, so that we can improve your experience. We are available via [employer] messages and phone calls during regular business hours, but if there is an urgent need or you need to be seen after hours (in triage or the ER) please call our after hours number [phone]. You will be connected to the carbon capture power plant operator physician or pulverizer mill operator. If a hospital visit is recommended please always go to [facility] located at [address] [place] [address] in [place]. Getting your test results is easier than ever! There are several ways you could receive results If you are a [employer] user this allows you rapid access to results. Most test results are released within 24 hours and may be viewable to you even before your provider reviews the results, or Clinical staff may call you with any abnormal results to discuss further your plan of care with the provider, or you could receive a letter for normal results. Attention [employer] Users! Want to send us a non urgent message, check your test results, request a medication refill, or schedule an appointment at your convenience? It's fast, safe, and easy. Just log in to [email or web address] and enter your user name and password. If you don't have a user name or password please ask one of our very qualified staff members and they will be happy to assist you in getting signed up. These messages are checked during office hours only. Please still call the office or physician carbon capture power plant operator with any urgent medical issues. For technical support, call If you had labs ordered today you can go to any [facility] lab and walk in with no appointment needed. If any imaging was ordered for you, central scheduling should call you within the week. If you do not hear from them, you can call them at [phone]. Any outpatient referrals with be taken care of by our staff. If you do not hear from their office within 1 week, please call our office at [phone] so we can check on the status for you. We all want to Thank you for choosing [facility] Normal Provider Locations PROGRESS NOTESon 09-12-2022 Caddie Authentication Interface Message Text Patient Active Problem List Diagnosis Date Noted ? Supervision of other normal , antepartum 04/27/2022 Planning FBBC Urine Glucose negative Protein negative Leukocytes negative RBC negative Nitrites negative patient presents for ob check states +FM O+ gtt 88 hgb 13.1 tdap - allergy No questions or concerns at this time. Normal Provider Locations PATIENT INSTRUCTIONSon 08-31 Caddie Authentication Interface Message Text Thank you for choosing [facility] [place]. It was a pleasure to see you today! Please call [phone] for all your office needs. Your opinion matters! You should receive a patient satisfaction survey in follow up in your e-mail in the next couple days. This is your time to provide us with genuine feedback that can better improve processes for future visits. We aim to provide our patients with safe and excellent care. If you were satisfied with your care today, please tell everyone. If you were not satisfied with your care today, please be sure to let us know, so that we can improve your experience. We are available via [employer] messages and phone calls during regular business hours, but if there is an urgent need or you need to be seen after hours (in triage or the ER) please call our after hours number [phone]. You will be connected to the carbon capture power plant operator physician or pulverizer mill operator. If a hospital visit is recommended please always go to [facility] located at [address] [place] [address]. Getting your test results is easier than ever! There are several ways you could receive results If you are a [employer] user this allows you rapid access to results. Most test results are released within 24 hours and may be viewable to you even before your provider reviews the results, or Clinical staff may call you with any abnormal results to discuss further your plan of care with the provider, or you could receive a letter for normal results. Attention [employer] Users! Want to send us a non urgent message, check your test results, request a medication refill, or schedule an appointment at your convenience? It's fast, safe, and easy. Just log in to [email or web address] and enter your user name and password. If you don't have a user name or password please ask one of our very qualified staff members and they will be happy to assist you in getting signed up. These messages are checked during office hours only. Please still call the office or physician carbon capture power plant operator with any urgent medical issues. For technical support, call If you had labs ordered today you can go to any [facility] lab and walk in with no appointment needed. If any imaging was ordered for you, central scheduling should call you within the week. If you do not hear from them, you can call them at [phone]. Any outpatient referrals with be taken care of by our staff. If you do not hear from their office within 1 week, please call our office at [phone] so we can check on the status for you. We all want to Thank you for choosing [facility] Normal Provider Locations PROGRESS NOTESon 08-31-2022 Caddie Authentication Interface Message Text Patient Active Problem List Diagnosis Date Noted ? Supervision of other normal , antepartum 04/27/2022 Planning FBBC Urine Glucose negative Protein negative Leukocytes positive - trace RBC negative Nitrites negative Here for ob check O+ gtt 88/hgb 13.1 Discuss varicose vein on labia Normal Provider Locations Caddie Authentication Interface Message Text Pt presents for routine OB visit at 28+1 +FM, no bleeding, no LOF She is feeling well overall Requested exam to verify presence of varicose vein on R labia, varicose vein visualized and is asymptomatic Pertussis allergy, declines tdap Orientation with FBBC in September S=D RTO 2 weeks I was present for exam and agree with documentation Kinga Lau APRN Normal Provider Locations COMPLETE BLOOD COUNTon 08-26 Erythrocyte distribution width (RBC) [Ratio] 12.1 % Normal <15.1 Provider Locations Hematocrit (Bld) [Volume fraction] 37.1 % Normal 34.0-49.0 Provider Locations Hemoglobin (Bld) [Mass/Vol] 13.1 g/dL Normal 11.2-15.7 Provider Locations MCH (RBC) [Entitic mass] 33.0 pg Normal 26.0-34.0 Provider Locations MCHC (RBC) [Mass/Vol] 35.3 g/dL Normal 30.7-35.5 Provider Locations MCV (RBC) [Entitic vol] 93.5 fL Normal 80.0-100.0 Provider Locations Platelet mean volume (Bld) [Entitic vol] 9.5 fL Normal 7.2-11.7 Provider Locations Platelets (Bld) [#/Vol] 280 10*3/uL Normal 140-400 Provider Locations RBC (Bld) [#/Vol] 3.97 10*6/uL Normal 3.95-5.26 Provi jv Locations WBC (Bld) [#/Vol] 8.3 10*3/uL Normal 3.5-10.9 [facility] er Locations GLUCOSE CHALLENGE, 1HOURon 0 08-26-2022 Glucose [Mass/Vol] 88 mg/dL Normal <140 Provid er Locations PATIENT INSTRUCTIONSon 08-02 Caddie Authentication Interface Message Text Thank you for choosing [facility] [place]. It was a pleasure to see you today! Please call [phone] for all your office needs. Your opinion matters! You should receive a patient satisfaction survey in follow up in your e-mail in the next couple days. This is your time to provide us with genuine feedback that can better improve processes for future visits. We aim to provide our patients with safe and excellent care. If you were satisfied with your care today, please tell everyone. If you were not satisfied with your care today, please be sure to let us know, so that we can improve your experience. We are available via [employer] messages and phone calls during regular business hours, but if there is an urgent need or you need to be seen after hours (in triage or the ER) please call our after hours number [phone]. You will be connected to the carbon capture power plant operator physician or pulverizer mill operator. If a hospital visit is recommended please always go to [facility] located at [address] [facility] in [place]. Getting your test results is easier than ever! There are several ways you could receive results If you are a [employer] user this allows you rapid access to results. Most test results are released within 24 hours and may be viewable to you even before your provider reviews the results, or Clinical staff may call you with any abnormal results to discuss further your plan of care with the provider, or you could receive a letter for normal results. Attention [employer] Users! Want to send us a non urgent message, check your test results, request a medication refill, or schedule an appointment at your convenience? It's fast, safe, and easy. Just log in to [email or web address] and enter your user name and password. If you don't have a user name or password please ask one of our very qualified staff members and they will be happy to assist you in getting signed up. These messages are checked during office hours only. Please still call the office or physician carbon capture power plant operator with any urgent medical issues. For technical support, call If you had labs ordered today you can go to any [facility] lab and walk in with no appointment needed. If any imaging was ordered for you, central scheduling should call you within the week. If you do not hear from them, you can call them at [phone]. Any outpatient referrals with be taken care of by our staff. If you do not hear from their office within 1 week, please call our office at [phone] so we can check on the status for you. We all want to Thank you for choosing [facility] Normal Provider Locations PROGRESS NOTESon 08-02-2022 Caddie Authentication Interface Message Text Pt presents today for routine OB visit @ 24+0 +FM, no bleeding, no LOF Feeling well overall Plans to do GTT in next few weeks Will call FBBC between 28-32 weeks She has no other questions or concerns S=D RTO 4 weeks Normal Provider Locations Caddie Authentication Interface Message Text Patient Active Problem List Diagnosis Date Noted ? Supervision of other normal , antepartum 04/27/2022 Planning FBBC Urine Glucose negative Protein negative Leukocytes positive - 1+ RBC negative Nitrites negative Here for exam. Will do GTT around 26 weeks. No concerns or questions today. +FM, says baby is moving well. Normal Provider Locations PATIENT INSTRUCTIONSon 06-30 Caddie Authentication Interface Message Text Thank you for choosing [facility] [place]. It was a pleasure to see you today! Please call [phone] for all your office needs. Your opinion matters! You should receive a patient satisfaction survey in follow up in your e-mail in the next couple days. This is your time to provide us with genuine feedback that can better improve processes for future visits. We aim to provide our patients with safe and excellent care. If you were satisfied with your care today, please tell everyone. If you were not satisfied with your care today, please be sure to let us know, so that we can improve your experience. We are available via [employer] messages and phone calls during regular business hours, but if there is an urgent need or you need to be seen after hours (in triage or the ER) please call our after hours number [phone]. You will be connected to the carbon capture power plant operator physician or pulverizer mill operator. If a hospital visit is recommended please always go to [facility] located at [address] [place] [address]. Getting your test results is easier than ever! There are several ways you could receive results If you are a [employer] user this allows you rapid access to results. Most test results are released within 24 hours and may be viewable to you even before your provider reviews the results, or Clinical staff may call you with any abnormal results to discuss further your plan of care with the provider, or you could receive a letter for normal results. Attention [employer] Users! Want to send us a non urgent message, check your test results, request a medication refill, or schedule an appointment at your convenience? It's fast, safe, and easy. Just log in to [email or web address] and enter your user name and password. If you don't have a user name or password please ask one of our very qualified staff members and they will be happy to assist you in getting signed up. These messages are checked during office hours only. Please still call the office or physician carbon capture power plant operator with any urgent medical issues. For technical support, call If you had labs ordered today you can go to any [facility] lab and walk in with no appointment needed. If any imaging was ordered for you, central scheduling should call you within the week. If you do not hear from them, you can call them at [phone]. Any outpatient referrals with be taken care of by our staff. If you do not hear from their office within 1 week, please call our office at [phone] so we can check on the status for you. We all want to Thank you for choosing [facility] Normal Provider Locations PROGRESS NOTESon 06-30-2022 Caddie Authentication Interface Message Text Patient Active Problem List Diagnosis Date Noted ? Supervision of other normal , antepartum 04/27/2022 Planning FBBC Urine Glucose positive - trace Protein negative Leukocytes negative RBC negative Nitrites negative Patient here for OB visit. Has no other concerns at this time. +FM Glucola and preadmission form given to patient. All questions answered. O+ RI hgb 14.1 uc/std/pl WNL Normal Provider Locations Caddie Authentication Interface Message Text Yanet Darren was seen in [facility] 06/30/2022. Normal [facility] PATIENT INSTRUCTIONSon 05-25 Caddie Authentication Interface Message Text Thank you for choosing [facility] [place]. It was a pleasure to see you today! Please call [phone] for all your office needs. Your opinion matters! You should receive a patient satisfaction survey in follow up in your e-mail in the next couple days. This is your time to provide us with genuine feedback that can better improve processes for future visits. We aim to provide our patients with safe and excellent care. If you were satisfied with your care today, please tell everyone. If you were not satisfied with your care today, please be sure to let us know, so that we can improve your experience. We are available via [employer] messages and phone calls during regular business hours, but if there is an urgent need or you need to be seen after hours (in triage or the ER) please call our after hours number [phone]. You will be connected to the carbon capture power plant operator physician or pulverizer mill operator. If a hospital visit is recommended please always go to [facility] located at [address] [place] [address]. Getting your test results is easier than ever! There are several ways you could receive results If you are a [employer] user this allows you rapid access to results. Most test results are released within 24 hours and may be viewable to you even before your provider reviews the results, or Clinical staff may call you with any abnormal results to discuss further your plan of care with the provider, or you could receive a letter for normal results. Attention [employer] Users! Want to send us a non urgent message, check your test results, request a medication refill, or schedule an appointment at your convenience? It's fast, safe, and easy. Just log in to [email or web address] and enter your user name and password. If you don't have a user name or password please ask one of our very qualified staff members and they will be happy to assist you in getting signed up. These messages are checked during office hours only. Please still call the office or physician carbon capture power plant operator with any urgent medical issues. For technical support, call If you had labs ordered today you can go to any [facility] lab and walk in with no appointment needed. If any imaging was ordered for you, central scheduling should call you within the week. If you do not hear from them, you can call them at [phone]. Any outpatient referrals with be taken care of by our staff. If you do not hear from their office within 1 week, please call our office at [phone] so we can check on the status for you. We all want to Thank you for choosing [facility]! Normal Provider Locations PROGRESS NOTESon 05-25-2022 [employer] Authentication Interface Message Text Patient Active Problem List Diagnosis Date Noted ? Supervision of other normal , antepartum 04/27/2022 Planning FBBC Urine Glucose negative Protein negative Leukocytes negative RBC negative Nitrites negative Here for ob check O+ 20 week anatomy order placed, pt advised Patient states has a rash on abdomen that started 3 weeks ago. States doesn't itch or spread. States had this rash before. No other questions or concerns at this time Normal Provider Locations C[employer]ie Authentication Interface Message Text Yanet Banks [id number] 1995 Patient Active Problem List Diagnosis ? Supervision of other normal , antepartum S: Pt denies complaints, No CTX/VB/LOF. Reports a small rash in the center, just below her ribs. Denies itching. Reports that she has had this before and uses a small amount of topical antifungal cream which improves the rash. O: Vitals: 05/25/22 1459 BP: 116/74 Pulse: 83 Gen: in no acute distress CV: normal rate Pulm: breathing even and unlabored Abd: soft, gravid, nontender FHTs: 150s bpm A/P: Yanet Banks is a 26 year old at 14w1d by 7w6d US. -- Routine care - SAB precautions reviewed - labs reviewed - Anatomy US at 20 weeks, ordered - CBC, RPR and diabetes screening between 24-28 weeks - Tdap between 27-36 weeks - GBS screening at 36 weeks - Delivery plan: MINO in FBBC - BCM: not discussed today -- RTC 4wks Electronically signed by: Alberta Noel MD, 05/25/2022 3:15 PM Normal Provider Locations HEPATITIS C VIRUS ANTIBODYon 05-24-2022 HEPATITIS C ANTIBODY Negative Normal NEGATIVE Provider Locations HIV AG/AB SCREEN, EIAon 11-0 HIV AG/AB SCREEN Non-Reactive Normal NON REACTIVE Prov ider Locations Comment on above: Result Comment: A No n-Reactive result indicates that HIV 1/2 Antibodies and/or HIV AG have not been found in this patient specimen. A Non-Reactive result, however does not preclude previous exposure or infection with HIV1/2. PROFILE W/HBSAGon 1 07-24-2021 ABO GROUPING O Normal Provider Locations ABSOLUTE BASOPHIL 0.0 K/uL Normal 0.0-0.3 Provide r Locations ABSOLUTE SEGMENTED NEUTROPHIL 4.8 K/uL Normal 1.8-7.5 Provider Locations Basophils/100 WBC (Bld) 0.3 % Normal 0.0-2.0 Provider Locations DIFFERENTIAL AUTOMATIC METHOD Normal Provid er Locations Eosinophils (Bld) [#/Vol] 0.1 10*3/uL Normal 0.0-0.5 Provider Locations Eosinophils/100 WBC (Bld) 1.3 % Normal 0.0-5.0 Provider Locations Erythrocyte distribution width (RBC) [Ratio] 12.2 % Normal <15.1 Provider Locations Hematocrit (Bld) [Volume fraction] 39.3 % Normal 34.0-49.0 Provider Locations Hemoglobin (Bld) [Mass/Vol] 14.1 g/dL Normal 11.2-15.7 Provider Locations HEPATITIS B SURFACE ANTIGEN Negative Normal NEGATIVE Provider Locations IMMATURE GRAN 0.4 % Normal <1 Provider Locations Immature granulocytes (Bld) [#/Vol] 0.0 10*3/uL Normal 0.0-0.1 Provider Locations Lymphocytes (Bld) [#/Vol] 1.8 10*3/uL Normal 0.9-4.1 Provider Locations Lymphocytes/100 WBC (Bld) 25.3 % Normal 14.0-51.0 Provider Locations MCH (RBC) [Entitic mass] 32.7 pg Normal 26.0-34.0 Provider Locations MCHC (RBC) [Mass/Vol] 35.9 g/dL High 30.7-35.5 Provider Locations MCV (RBC) [Entitic vol] 91.2 fL Normal 80.0-100.0 Provider Locations Monocytes (Bld) [#/Vol] 0.4 10*3/uL Normal 0.2-1.0 Provider Locations Monocytes/100 WBC (Bld) 5.4 % Normal 4.0-12.0 Provider Locations NUCLEATED RBCS 0.0 /100 WBC Normal 0 Provider Locations Platelet mean volume (Bld) [Entitic vol] 9.6 fL Normal 7.2-11.7 Provider Locations Platelets (Bld) [#/Vol] 268 10*3/uL Normal 140-400 Provider Locations RBC (Bld) [#/Vol] 4.31 10*6/uL Normal 3.95-5.26 Provi jv Locations Reagin Ab RPR Ql (S) Non-Reactive Normal NON REACTIVE Provider Locations RH TYPE IN BLOOD Positive Normal Provider Locations RUBELLA IGG 3.15 Index Value Normal Provide r Locations Comment on above: Result Comment: (NOT E) INDEX VALUE INTERPRETATION <0.90 NEGATIVE 0.90-0.99 EQUIVOCAL >=1.00 POSITIVE A POSITIVE result indicates that the patient has antibody to Rubella. It does not differentiate between an active or past infection. The clinical diagnosis must be interpreted in conjunction with the clinical signs and symptoms of the patient. The presence of IgG Rubella antibody is consistent with immunity. Segmented neutrophils/100 WBC (Bld) 67.3 % Normal 42.0-80.0 Provider Locations WBC (Bld) [#/Vol] 7.1 10*3/uL Normal 3.5-10.9 Provid er Locations ANESTH ADDENDUMon 04-27-2022 Caddie Authentication Interface Message Text Addended by: ZAIDA REYES on: 04/27/2022 04:22 PM Modules accepted: Orders Normal Provider Locations BACTERIAL VAGINOSIS PANELon 04-27-2022 BACTERIAL VAGINOSIS PANEL TRICHOMONAS NOT DETECTED BACTERIAL VAGINOSIS PANEL Reference Range = NOT DETECTED GARDNERELLA NOT DETECTED BACTERIAL VAGINOSIS PANEL Reference Range = NOT DETECTED CLAUS: NOT DETECTED BACTERIAL VAGINOSIS PANEL Reference Range = NOT DETECTED Normal Provider Locations PROGRESS NOTESon 04-27-2022 C[employer]ie Authentication Interface Message Text There are no problems to display for this patient. Urine Glucose negative Protein negative Leukocytes negative RBC negative Nitrites negative Here for ob history. 2nd prehnancy Had viability u/s 04/12 7w6d LMP 02/15/2022 Last pap hpv 05/2021 Negative Declined genetic testing Patient states feeling good overall. Patient ordering prenatals online, would like to discuss with provider. No other questions or concerns at this time Normal Provider Locations C[employer]ie Authentication Interface Message Text New OB visit Yanet Banks is a 26 year old who presents for first visit. She reports an LMP of 02/15/22 and is certain of this date. Had early US which was consistent with this dating She is feeling well Planning FBBC, had unmedicated labor with last baby Declines all optional genetic screenings, okay with HIV and Hep C screening UTD on pap as of 2020, no hx abnormals per her report Oriented to practice and what to expect throughout All questions answered Review of Systems GEN: All negative EYES: All negative NECK: All negative ENT: All negative RESP: All negative CARD: All negative GI: All negative MS: All negative SKIN: All negative NEURO: All negative PSYCH: All negative Physical Exam Visit Vitals BP 126/87 Pulse 83 Wt 52.1 kg (114 lb 12.8 oz) LMP 02/15/2022 (Exact Date) BMI 21.00 kg/m? OB Status Smoking Status Never BSA 1.51 m? GEN: no acute distress, alert, awake, oriented, cooperative NECK: normal ROM, no LAD or thyromegaly noted BREAST EXAM: deferred HEART: RRR LUNGS: CTAB ABDOMEN: soft, nontender, gravid EXTREMITIES: warm and well perfused PELVIC EXAM: deferred OBGYN History: OB History Para Term AB Living 2 1 1 1 SAB IAB Ectopic Multiple Live Births # Outcome Date GA Lbr Glen/2nd Weight Sex Delivery Anes PTL Lv 2 Current 1 Term 12/30/20 M Vag-Spont None History of abnormal Paps: no Result of last screenin, WNL Past Medical History: Past Medical History: Diagnosis Date ? Chickenpox Current Meds: Current Outpatient Medications: ? vit no.124/iron/folic ( VITAMIN ORAL), Take by mouth, Disp: , Rfl: ? ondansetron (ZOFRAN ODT) 4 mg RAPID DISSOLVING tablet, Take 1 Tab by mouth every 6 hours as needed (Patient not taking: Reported on 04/27/2022), Disp: 12 Tab, Rfl: 0 Surgical History: No past surgical history on file. Family History: Family History Problem Relation Name Age of Onset ? Rheum Arthritis Mother ? Diabetes Maternal Grandmother ? Rheum Arthritis Maternal Grandmother ? Stroke Maternal Grandfather ? Breast Cancer Paternal Grandmother Social History: Social History Socioeconomic History ? Marital status: Spouse name: Not on file ? Number of children: Not on file ? Years of education: Not on file ? Highest education level: Not on file Occupational History ? Not on file Tobacco Use ? Smoking status: Never ? Smokeless tobacco: Never Vaping Use ? Vaping Use: Never used Substance and Sexual Activity ? Alcohol use: Not Currently ? Drug use: Never ? Sexual activity: Yes Partners: Male Other Topics Concern ? Not on file Social History Narrative ? Not on file Social Determinants of Health Financial Resource Strain: Not on file Food Insecurity: Not on file Transportation Needs: Not on file Physical Activity: Not on file Stress: Not on file Social Connections: Not on file Intimate Partner Violence: Not on file Housing Stability: Not on file Allergies: Pertussis vaccines and Zithromax [azithromycin] Assessment: at 10w1d set by US. + T. Plan: -Continue PNV - labs ordered -Optional genetic screening declines all, okay with HIV and Hep C screen -RTO 4 weeks Normal Provider Locations BASIC METABOLIC PANELon 10-0 Anion gap [Moles/Vol] 13 mmol/L Normal 5-15 [facility] Comment on above: Performed By: #### L [id number] #### [place] [address] Calcium [Mass/Vol] 9.5 mg/dL Normal 8.5-10.5 [facility] Comment on above: Performed By: #### L [id number] #### [place] [address] Chloride [Moles/Vol] 101 mmol/L Normal 96-110 [facility] Comment on above: Performed By: #### L [id number] #### [place] [address] CO2 [Moles/Vol] 22 mmol/L Normal 19-32 [facility] Comment on above: Performed By: #### L [id number] #### [place] [address] Creatinine [Mass/Vol] 0.6 mg/dL Normal 0.5-1.2 [facility] Comment on above: Performed By: #### L [id number] #### [place] [address] ESTIMATED GFR 126 mL/min/1.73m*2 Normal >=60 [facility] Comment on above: Performed By: #### L [id number] #### [place] [address] Glucose [Mass/Vol] 112 mg/dL High 70-99 [facility] Comment on above: Performed By: #### L [id number] #### [place] [address] Potassium [Moles/Vol] 3.7 mmol/L Normal 3.4-5.3 [facility] Comment on above: Performed By: #### L [id number] #### [place] [address] Sodium [Moles/Vol] 136 mmol/L Normal 135-148 [facility] Comment on above: Performed By: #### L [id number] #### [place] [address] Urea nitrogen [Mass/Vol] 10 mg/dL Normal 3-29 [facility] Comment on above: Performed By: #### L [id number] #### [place] [address] Urea nitrogen/Creatinine [Mass ratio] 17 mg/mg Normal 7-25 [facility] Comment on above: Performed By: #### L [id number] #### [place] [address] Anion gap [Moles/Vol] 13 mmol/L 5 - 15 [facility] Calcium [Mass/Vol] 9.5 mg/dL 8.5 - 10.5 mg/dL [facility] Chloride [Moles/Vol] 101 mmol/L [facility] CO2 [Moles/Vol] 22 mmol/L [facility] Creatinine [Mass/Vol] 0.6 mg/dL 0.5 - 1.2 mg/dL [facility] GFR/1.73 sq M.predicted among blacks MDRD (S/P/Bld) [Vol rate/Area] 126 mL/min/{1.73_m2} - PINF [facility] Glucose [Mass/Vol] 112 mg/dL High 70 - 99 mg/dL Pre [facility] Interpretation and review of laboratory results Abnormal [facility] Potassium [Moles/Vol] 3.7 mmol/L [facility] Sodium [Moles/Vol] 136 mmol/L [facility] Urea nitrogen [Mass/Vol] 10 mg/dL 3 - 29 mg/dL [facility] Urea nitrogen/Creatinine [Mass ratio] 17 mg/mg 7 - 25 [facility] COMPLETE BLOOD COUNT WITH DI FFERENTIALon 04-23-2022 BASOPHILS ABSOLUTE COUNT (10*3/UL) BY AUTOMATED COUNT 0.0 K/uL Normal 0.0-0.3 [facility] Comment on above: Performed By: #### L [id number] #### [place] [address] BASOPHILS RELATIVE PERCENT BY AUTOMATED COUNT 0.1 % Normal 0.0-2.0 [facility] Comment on above: Performed By: #### L [id number] #### [place] [address] Eosinophils (Bld) [#/Vol] 0.0 10*3/uL Normal 0.0-0.5 [facility] Comment on above: Performed By: #### L [id number] #### [place] [address] EOSINOPHILS RELATIVE PERCENT BY AUTOMATED COUNT 0.1 % Normal 0.0-5.0 [facility] Comment on above: Performed By: #### L [id number] #### [place] [address] Erythrocyte distribution width (RBC) [Ratio] 11.8 % Normal <=15.0 [facility] Comment on above: Performed By: #### L [id number] #### [place] [address] Hematocrit (Bld) [Volume fraction] 42.8 % Normal 34.0-49.0 [facility] Comment on above: Performed By: #### L [id number] #### [place] [address] Hemoglobin (Bld) [Mass/Vol] 15.1 g/dL Normal 11.2-15.7 [facility] Comment on above: Performed By: #### L [id number] #### [place] [address] Immature granulocytes (Bld) [#/Vol] 0.0 10*3/uL Normal 0.0-0.1 [facility] Comment on above: Performed By: #### L [id number] #### [place] [id number] Immature granulocytes/100 WBC (Bld) 0.2 % Normal <1.0 [facility] Comment on above: Performed By: #### L [id number] #### [place] [id number] LYMPHOCYTES ABSOLUTE COUNT (10*3/UL) BY AUTOMATED COUNT 0.5 K/uL Low 0.9-4.1 [facility] Comment on above: Performed By: #### L [id number] #### [place] [id number] LYMPHOCYTES RELATIVE PERCENT BY AUTOMATED COUNT 4.5 % Low 14.0-51.0 [facility] Comment on above: Performed By: #### L [id number] #### [place] [id number] MCH (RBC) [Entitic mass] 31.9 pg Normal 26.0-34.0 [facility] Comment on above: Performed By: #### L [id number] #### [place] [id number] MCHC (RBC) [Mass/Vol] 35.3 g/dL Normal 30.7-35.5 [facility] Comment on above: Performed By: #### L [id number] #### [place] [address] MCV (RBC) [Entitic vol] 90.5 fL Normal 80.0-100.0 [facility] Comment on above: Performed By: #### L [id number] #### [place] [address] MEAN PLATELET VOLUME (FL) BY AUTOMATED COUNT 9.1 fL Normal 7.2-11.7 [facility] Comment on above: Performed By: #### L [id number] #### [place] [address] MONOCYTES ABSOLUTE COUNT (10*3/UL) BY AUTOMATED COUNT 0.4 K/uL Normal 0.2-1.0 [facility] Comment on above: Performed By: #### L [id number] #### [place] [address] MONOCYTES RELATIVE PERCENT BY AUTOMATED COUNT 3.6 % Low 4.0-12.0 [facility] Comment on above: Performed By: #### L [id number] #### [place] [address] NEUTROPHILS ABSOLUTE COUNT (10*3/UL) BY AUTOMATED COUNT 9.7 K/uL High 1.8-7.5 [facility] Comment on above: Performed By: #### L [id number] #### [place] [address] NEUTROPHILS RELATIVE PERCENT BY AUTOMATED COUNT 91.5 % High 42.0-80.0 [facility] Comment on above: Performed By: #### L [id number] #### [place] [address] PLATELETS (10*3/UL) BY AUTOMATED COUNT 291 K/uL Normal 140-400 [facility] Comment on above: Performed By: #### L [id number] #### [place] [address] RBC (Bld) [#/Vol] 4.73 10*6/uL Normal 3.95-5.26 [facility] Comment on above: Performed By: #### L [id number] #### [place] [address] WBC (Bld) [#/Vol] 10.6 10*3/uL Normal 3.5-10.9 [facility] Comment on above: Performed By: #### L [id number] #### [place] [address] Basophils (Bld) [#/Vol] 0.0 10*3/uL 0.0 - 0.3 K/uL [facility] Basophils/100 WBC (Bld) 0.1 % 0.0 - 2.0 % [facility] Eosinophils (Bld) [#/Vol] 0.0 10*3/uL 0.0 - 0.5 K/uL [facility] Eosinophils/100 WBC (Bld) 0.1 % 0.0 - 5.0 % [facility] Erythrocyte distribution width (RBC) [Ratio] 11.8 % NINF - 15.0 % [facility] Hematocrit (Bld) [Volume fraction] 42.8 % 34.0 - 49.0 % [facility] Hemoglobin (Bld) [Mass/Vol] 15.1 g/dL 11.2 - 15.7 g/dL [facility] Immature granulocytes (Bld) [#/Vol] 0.0 10*3/uL 0.0 - 0.1 K/uL [facility] Immature granulocytes/100 WBC (Bld) 0.2 % NINF - 1.0 % [facility] Interpretation and review of laboratory results Abnormal [facility] Lymphocytes (Bld) [#/Vol] 0.5 10*3/uL Low 0.9 - 4.1 K/uL [facility] Lymphocytes/100 WBC (Bld) 4.5 % Low 14.0 - 51.0 % [facility] MCH (RBC) [Entitic mass] 31.9 pg 26.0 - 34.0 pg [facility] MCHC (RBC) [Mass/Vol] 35.3 g/dL 30.7 - 35.5 g/dL [facility] MCV (RBC) [Entitic vol] 90.5 fL 80.0 - 100.0 fL [facility] Monocytes (Bld) [#/Vol] 0.4 10*3/uL 0.2 - 1.0 K/uL [facility] Monocytes/100 WBC (Bld) 3.6 % Low 4.0 - 12.0 % [facility] Neutrophils (Bld) [#/Vol] 9.7 10*3/uL High 1.8 - 7.5 K/uL [facility] Neutrophils/100 WBC (Bld) 91.5 % High 42.0 - 80.0 % [facility] Platelet mean volume (Bld) [Entitic vol] 9.1 fL 7.2 - 11.7 fL [facility] Platelets (Bld) [#/Vol] 291 10*3/uL 140 - 400 K/uL [facility] RBC (Bld) [#/Vol] 4.73 10*6/uL [facility] WBC corrected for nucl RBC Auto (Bld) [#/Vol] 10.6 K/uL 3.5 - 10.9 K/uL [facility] HEPATIC FUNCTION PANELon Albumin [Mass/Vol] 4.4 g/dL Normal 3.5-5.2 [facility] Comment on above: Performed By: #### L [id number] ####[place] [phone] ALP [Catalytic activity/Vol] 55 U/L Normal 23-144 [facility] Comment on above: Performed By: #### L [id number] ####[place] [phone] ALT [Catalytic activity/Vol] 12 U/L Normal 0-60 [facility] Comment on above: Performed By: #### L [id number] ####[place] [phone] AST [Catalytic activity/Vol] 17 U/L Normal 0-46 [facility] Comment on above: Performed By: #### L [id number] ####[place] [phone] Bilirubin [Mass/Vol] 0.6 mg/dL Normal 0.0-1.2 [facility] Comment on above: Performed By: #### L [id number] ####[place] [phone] BILIRUBIN, DIRECT < Normal 0.0-0.4 [facility] Comment on above: Performed By: #### L [id number] ####[place] [phone] BILIRUBIN, INDIRECT Normal [facility] Comment on above: Result Comment: Unab le to calculate. Performed By: #### L [id number] ####[place] [phone] Protein [Mass/Vol] 7.3 g/dL Normal 6.0-8.3 [facility] Comment on above: Performed By: #### L [id number] ####[place] [phone] Albumin [Mass/Vol] 4.4 g/dL 3.5 - 5.2 g/dL [facility] ALP [Catalytic activity/Vol] 55 U/L 23 - 144 U/L [facility] ALT [Catalytic activity/Vol] 12 U/L 0 - 60 U/L [facility] AST [Catalytic activity/Vol] 17 U/L 0 - 46 U/L [facility] Bilirubin [Mass/Vol] 0.6 mg/dL 0.0 - 1.2 mg/dL [facility] Bilirubin.direct [Mass/Vol] mg/dL 0.0 - 0.4 mg/dL [facility] Bilirubin.indirect [Mass/Vol] [facility] Comment on above: Unable to calculate. Protein [Mass/Vol] 7.3 g/dL 6.0 - 8.3 g/dL [facility] LIPASEon 04-23-2022 Lipase [Catalytic activity/Vol] 27 U/L Normal 0-60 [facility] Comment on above: Performed By: #### L [id number] ####[place] [phone] Interpretation and review of laboratory results [facility] [Catalytic activity/Vol] 27 U/L 0 - 60 U/L [facility] No Panel Informationon 04-23 [facility] Vital Signs Date Time Vital Sign Value Performing Clinician Raya graves 03-11-2025 10:33-0400 Body mass index (BMI) [Ratio] 29.48 kg/m2 Khadra Manciin PHYSICIAN PRACTICE MARKET MANAGER.CNM Work Phone: [facility] 03-11-2025 10:33-0400 Body weight 70.76 kg Khadra Mancini PHYSICIAN PRACTICE MARKET MANAGER.CNM Work Phone: [facility] 03-11-2025 10:33-0400 Diastolic blood pressure 62 mm[Hg] Khadra Mancini PHYSICIAN PRACTICE MARKET MANAGER.CNM Work Phone: [facility] 03-11-2025 10:33-0400 Systolic blood pressure 110 mm[Hg] Khadra Mancini PHYSICIAN PRACTICE MARKET MANAGER.CNM Work Phone: [facility] 03-07-2025 13:14-0400 Body mass index (BMI) [Ratio] 29.78 kg/m2 Annie Plotts PHYSICIAN PRACTICE MARKET MANAGER.CNM Work Phone: [facility] 03-07-2025 13:14-0400 Body weight 71.49 kg Annie Plotts PHYSICIAN PRACTICE MARKET MANAGER.CNM Work Phone: [facility] 03-07-2025 13:14-0400 Diastolic blood pressure 64 mm[Hg] Annie Plotts PHYSICIAN PRACTICE MARKET MANAGER.CNM Work Phone: [facility] 03-07-2025 13:14-0400 Systolic blood pressure 118 mm[Hg] Annie Plotts PHYSICIAN PRACTICE MARKET MANAGER.CNM Work Phone: [facility] 03-05-2025 09:02-0400 Body mass index (BMI) [Ratio] 29.4 kg/m2 Annie Plotts PHYSICIAN PRACTICE MARKET MANAGER.CNM Work Phone: [facility] 03-05-2025 09:02-0400 Body weight 70.58 kg Annie Plotts PHYSICIAN PRACTICE MARKET MANAGER.CNM Work Phone: [facility] 03-05-2025 09:02-0400 Diastolic blood pressure 64 mm[Hg] Annie Plotts PHYSICIAN PRACTICE MARKET MANAGER.CNM Work Phone: [facility] 03-05-2025 09:02-0400 Systolic blood pressure 110 mm[Hg] Annie Plotts PHYSICIAN PRACTICE MARKET MANAGER.CNM Work Phone: [facility] 02-25-2025 08:05-0400 Body mass index (BMI) [Ratio] 28.91 kg/m2 Khadra Mancini PHYSICIAN PRACTICE MARKET MANAGER.CNM Work Phone: [facility] 02-25-2025 08:05-0400 Body weight 69.4 kg Khadra Mancini PHYSICIAN PRACTICE MARKET MANAGER.CNM Work Phone: [facility] 02-25-2025 08:05-0400 Diastolic blood pressure 68 mm[Hg] Khadra Mancini PHYSICIAN PRACTICE MARKET MANAGER.CNM Work Phone: [facility] 02-25-2025 08:05-0400 Systolic blood pressure 108 mm[Hg] Khadra Mancini PHYSICIAN PRACTICE MARKET MANAGER.CNM Work Phone: [facility] 02-11-2025 08:47-0400 Body mass index (BMI) [Ratio] 28.15 kg/m2 Chinyere Lehman MD Work Phone: [facility] 02-11-2025 08:47-0400 Body weight 67.59 kg Chinyere Lehman MD Work Phone: [facility] 02-11-2025 08:47-0400 Diastolic blood pressure 62 mm[Hg] Chinyere Lehman MD Work Phone: [facility] [facility] 02-11-2025 08:47-0400 Systolic blood pressure 98 mm[Hg] Chinyere Lehman MD Work Phone: [facility] 01-28-2025 08:38-0400 Body mass index (BMI) [Ratio] 27.59 kg/m2 Arthur Conklin MD Work Phone: [facility] 01-28-2025 08:38-0400 Body weight 66.22 kg Arthur Conklin MD Work Phone: [facility] 01-28-2025 08:38-0400 Diastolic blood pressure 60 mm[Hg] Arthur Conklin MD Work Phone: [facility] 01-28-2025 08:38-0400 Systolic blood pressure 98 mm[Hg] Arthur Conklin MD Work Phone: [facility] 01-14-2025 08:04-0400 Body mass index (BMI) [Ratio] 27.21 kg/m2 Khadra Live PHYSICIAN PRACTICE MARKET MANAGER.CNM Work Phone: [facility] 01-14-2025 08:04-0400 Body weight 65.32 kg Khadra Mancini PHYSICIAN PRACTICE MARKET MANAGER.CNM Work Phone: [facility] 01-14-2025 08:04-0400 Diastolic blood pressure 70 mm[Hg] Khadra Mancini PHYSICIAN PRACTICE MARKET MANAGER.CNM Work Phone: [facility] 01-14-2025 08:04-0400 Systolic blood pressure 116 mm[Hg] Khadra Mancini PHYSICIAN PRACTICE MARKET MANAGER.CNM Work Phone: [facility] 12-31-2024 08:07-0400 Body mass index (BMI) [Ratio] 26.83 kg/m2 Khadra Mancini PHYSICIAN PRACTICE MARKET MANAGER.CNM Work Phone: [facility] 12-31-2024 08:07-0400 Body weight 64.41 kg Khadra Live PHYSICIAN PRACTICE MARKET MANAGER.CNM Work Phone: [facility] 12-31-2024 08:07-0400 Diastolic blood pressure 62 mm[Hg] Khadra Mancini PHYSICIAN PRACTICE MARKET MANAGER.CNM Work Phone: [facility] 12-31-2024 08:07-0400 Systolic blood pressure 98 mm[Hg] Khadra Mancini PHYSICIAN PRACTICE MARKET MANAGER.CNM Work Phone: [facility] 12-17-2024 09:57-0400 Body mass index (BMI) [Ratio] 26.64 kg/m2 Khadra Mancini PHYSICIAN PRACTICE MARKET MANAGER.CNM Work Phone: [facility] 12-17-2024 09:57-0400 Body weight 63.96 kg Khadra Live TURNERN.CNM Work Phone: [facility] 12-17-2024 09:57-0400 Diastolic blood pressure 62 mm[Hg] Khadra Mancini PHYSICIAN PRACTICE MARKET MANAGER.CNM Work Phone: [facility] 12-17-2024 09:57-0400 Systolic blood pressure 100 mm[Hg] Khadra Mancini PHYSICIAN PRACTICE MARKET MANAGER.CNM Work Phone: [facility] 11-19-2024 11:23-0400 Body mass index (BMI) [Ratio] 26.07 kg/m2 Khadra Mancini PHYSICIAN PRACTICE MARKET MANAGER.CNM Work Phone: [facility] 11-19-2024 11:23-0400 Body weight 62.6 kg Khadra Mancini PHYSICIAN PRACTICE MARKET MANAGER.CNM Work Phone: [facility] 11-19-2024 11:23-0400 Diastolic blood pressure 62 mm[Hg] Khadra Mancini PHYSICIAN PRACTICE MARKET MANAGER.CNM Work Phone: [facility] 11-19-2024 11:23-0400 Systolic blood pressure 104 mm[Hg] Khadra Mancini PHYSICIAN PRACTICE MARKET MANAGER.CNM Work Phone: [facility] 10-23-2024 09:41-0400 Body mass index (BMI) [Ratio] 25.32 kg/m2 Annie Thakur PHYSICIAN PRACTICE MARKET MANAGER.CNM Work Phone: [facility] 10-23-2024 09:41-0400 Body weight 60.78 kg Annie Thakur PHYSICIAN PRACTICE MARKET MANAGER.CNM Work Phone: [facility] 10-23-2024 09:41-0400 Diastolic blood pressure 64 mm[Hg] Annie Thakur PHYSICIAN PRACTICE MARKET MANAGER.CNM Work Phone: [facility] 10-23-2024 09:41-0400 Systolic blood pressure 112 mm[Hg] Annie Thakur PHYSICIAN PRACTICE MARKET MANAGER.CNM Work Phone: [facility] 09-24-2024 09:35-0400 Body mass index (BMI) [Ratio] 24.75 kg/m2 Khadra Mancini PHYSICIAN PRACTICE MARKET MANAGER.CNM Work Phone: [facility] 09-24-2024 09:35-0400 Body weight 59.42 kg Khadra Mancini PHYSICIAN PRACTICE MARKET MANAGER.CNM Work Phone: [facility] 09-24-2024 09:35-0400 Diastolic blood pressure 66 mm[Hg] Khadra Mancini PHYSICIAN PRACTICE MARKET MANAGER.CNM Work Phone: [facility] 09-24-2024 09:35-0400 Systolic blood pressure 108 mm[Hg] Khadra Mancini PHYSICIAN PRACTICE MARKET MANAGER.CNM Work Phone: [facility] 08-28-2024 09:42-0500 Body mass index (BMI) [Ratio] 24.19 kg/m2 Annie Plotts PHYSICIAN PRACTICE MARKET MANAGER.CNM Work Phone: [facility] 08-28-2024 09:42-0500 Body weight 58.06 kg Annie Plotts PHYSICIAN PRACTICE MARKET MANAGER.CNM Work Phone: [facility] 08-28-2024 09:42-0500 Diastolic blood pressure 68 mm[Hg] Annie Plotts PHYSICIAN PRACTICE MARKET MANAGER.CNM Work Phone: [facility] 08-28-2024 09:42-0500 Systolic blood pressure 110 mm[Hg] Annie Plotts PHYSICIAN PRACTICE MARKET MANAGER.CNM Work Phone: [facility] 07-31-2024 08:40-0500 Body mass index (BMI) [Ratio] 23.51 kg/m2 Annie Plotts PHYSICIAN PRACTICE MARKET MANAGER.CNM Work Phone: [facility] 07-31-2024 08:40-0500 Body weight 56.43 kg Annie Plotts PHYSICIAN PRACTICE MARKET MANAGER.CNM Work Phone: [facility] 07-31-2024 08:40-0500 Diastolic blood pressure 60 mm[Hg] Annie Plotts PHYSICIAN PRACTICE MARKET MANAGER.CNM Work Phone: [facility] 07-31-2024 08:40-0500 Systolic blood pressure 122 mm[Hg] Annie Plotts PHYSICIAN PRACTICE MARKET MANAGER.CNM Work Phone: [facility] 04-23-2022 14:16-0400 Body height 157.5 cm Joslyn Panda MD Work Phone: [facility] 04-23-2022 14:16-0400 Body mass index (BMI) [Ratio] 21.22 kg/m2 Joslyn Panda MD Work Phone: [facility] 04-23-2022 14:16-0400 Body temperature 98.6 [degF] Joslyn Panda MD Work Phone: [facility] 04-23-2022 14:16-0400 Body weight 52.62 kg Joslyn Panda MD Work Phone: [facility] 04-23-2022 14:16-0400 Diastolic blood pressure 82 mm[Hg] Joslyn Panda MD Work Phone: [facility] 04-23-2022 14:16-0400 Heart rate 117 /min Joslyn Panda MD Work Phone: [facility] 04-23-2022 14:16-0400 Respiratory rate 18 /min Joslyn Panda MD Work Phone: [facility] 04-23-2022 14:16-0400 SaO2% (BldA) [Mass fraction] 97 % Joslyn Panda MD Work Phone: [facility] 04-23-2022 14:16-0400 Systolic blood pressure 129 mm[Hg] Joslyn Panda MD Work Phone: [facility] Encounters Encounter Date Encounter Type Care Provider Facility Start: 03-12-2025 End: 03-12-2025 Telephone encounter Chinyere Lehman MD Work Phone: OB/Gynecology Comment on above: OB Contractions Start: 03-11-2025 End: 03-11-2025 Patient encounter procedure Khadra Mancini APRN.CNM Work Phone: OB/Gynecology Comment on above: Encounter for superv ision of other normal in third trimester (HCC) (Primary Dx); 40 weeks gestation of (HCC); Multiparity Start: 03-11-2025 End: 03-11-2025 ambulatory KHADRA MANCINI Facility:[facility] Start: 03-07-2025 End: 03-07-2025 Telephone encounter Annie Thakur APRN.CNM Work Phone: OB/Gynecology Start: 03-07-2025 End: 03-07-2025 Patient encounter procedure Annie Alecchapincito PHYSICIAN PRACTICE MARKET MANAGER.HUM Work Phone: OB/Gynecology Comment on above: 39 weeks gestation o f (HCC) (Primary Dx); Encounter for supervision of other normal in third trimester (HCC) Start: 03-07-2025 End: 03-07-2025 ambulatory ANNIE THAKUR Facility:[facility] Start: 03-05-2025 End: 03-05-2025 Patient encounter procedure Annie Alecchapincito PHYSICIAN PRACTICE MARKET MANAGER.HUM Work Phone: OB/Gynecology Comment on above: 39 weeks gestation o f (HCC) (Primary Dx); Encounter for supervision of other normal in third trimester (HCC) Start: 03-05-2025 End: 03-05-2025 ambulatory ANNIE THAKUR Facility:[facility] Start: 02-25-2025 End: 02-25-2025 Patient encounter procedure Khadra Mancini APRN.CNM Work Phone: OB/Gynecology Comment on above: Encounter for superv ision of other normal in third trimester (HCC) (Primary Dx); 38 weeks gestation of (HCC) Population Health Na vigation Outreach (Ob/peds) Start: 02-25-2025 End: 02-25-2025 ambulatory Niru Casarez MA [facility] Start: 02-18-2025 End: 02-18-2025 ambulatory KHADRA MANCINI Facility:[facility] Start: 02-11-2025 End: 02-11-2025 Patient encounter procedure Chinyere Lehman MD Work Phone: OB/Gynecology Comment on above: Encounter for superv ision of other normal in third trimester (HCC) (Primary Dx); 36 weeks gestation of (HCC) Start: 02-11-2025 End: 02-11-2025 ambulatory CHINYERE LEHMAN Facility:[facility] Start: 01-28-2025 End: 01-29-2025 Telephone encounter Arthur Conklin MD Work Phone: OB/Gynecology Comment on above: Question (OB Questio n) Start: 01-28-2025 End: 01-28-2025 ambulatory ARTHUR CONKLIN Facility:[facility] Start: 01-28-2025 End: 01-28-2025 Patient encounter procedure Arthur Conklin MD Work Phone: OB/Gynecology Comment on above: Encounter for superv ision of other normal in third trimester (HCC) (Primary Dx); 34 weeks gestation of (HCC) Start: 01-14-2025 End: 01-14-2025 ambulatory KHADRA MANCINI Facility:[facility] Start: 01-14-2025 End: 01-14-2025 Patient encounter procedure Khadra Mancini APRN.CNM Work Phone: OB/Gynecology Comment on above: Encounter for superv ision of other normal in third trimester (HCC) (Primary Dx); 32 weeks gestation of (HCC) Start: 01-01-2025 End: 01-01-2025 Telephone encounter Nica Uriarte RN Maternal Medicine Comment on above: Development Scientist - O ther (PRAF) Start: 12-31-2024 End: 12-31-2024 ambulatory KHADRA MANCINI Facility:[facility] Start: 12-31-2024 End: 12-31-2024 Patient encounter procedure Khadra Mancini APRN.CNM Work Phone: OB/Gynecology Comment on above: Encounter for superv ision of normal in multigravida (HCC) (Primary Dx); 30 weeks gestation of (HCC) Start: 12-17-2024 End: 02-16-2025 Follow-up encounter Khadra Mancini APRN.CNM Work Phone: OB/Gynecology Start: 12-17-2024 End: 12-17-2024 Patient encounter procedure Khadra Mancini APRN.CNM Work Phone: OB/Gynecology Comment on above: Encounter for superv ision of other normal in third trimester (HCC) (Primary Dx); 28 weeks gestation of (HCC) Start: 12-17-2024 End: 12-17-2024 ambulatory KHADRA MANCINI Facility:[facility] Start: 11-19-2024 End: 11-19-2024 Patient encounter procedure Khadra Live PHYSICIAN PRACTICE MARKET MANAGER.CNM Work Phone: OB/Gynecology Comment on above: Encounter for superv ision of other normal in second trimester (HCC) (Primary Dx); 24 weeks gestation of (HCC); Screening for diabetes mellitus Start: 11-19-2024 End: 11-19-2024 ambulatory KHADRA MANCINI Facility:[facility] Start: 10-24-2024 End: 10-24-2024 Telephone encounter Nica Uriarte RN Maternal Medicine Comment on above: Development Scientist - O ther (PRAF) Start: 10-23-2024 End: 10-23-2024 ambulatory ANNIE [facility] Facility:[facility] Start: 10-23-2024 End: 10-23-2024 Patient encounter procedure Annie Thakur PHYSICIAN PRACTICE MARKET MANAGER.CNM Work Phone: OB/Gynecology Comment on above: 20 weeks gestation o f (HCC) (Primary Dx); Encounter for supervision of other normal in second trimester ([facility]); Encounter for supervision of normal in multigravida ([facility]) Start: 10-23-2024 End: 10-23-2024 ambulatory ANNIE [facility] Facility:[facility] Start: 10-23-2024 End: 10-23-2024 Patient encounter procedure Whi Tech 1 Sales Planning Manager Mfm Wstr Mob Maternal Medicine Comment on above: Encounter for anatomic survey (HCC) (Primary Dx); 20 weeks gestation of ([facility]) Start: 09-24-2024 End: 09-24-2024 ambulatory KHADRADEE MANCINI Facility:[facility] Start: 09-24-2024 End: 09-24-2024 Patient encounter procedure Khadra Live PHYSICIAN PRACTICE MARKET MANAGER.CNM Work Phone: OB/Gynecology Comment on above: Encounter for superv ision of other normal in second trimester (Primary Dx); 16 weeks gestation of Start: 08-29-2024 End: 10-29-2024 Follow-up encounter Annie Thakur APRN.CNM Work Phone: OB/Gynecology Start: 08-28-2024 End: 08-28-2024 ambulatory ANNIE THAKUR Facility:[facility] Start: 08-28-2024 End: 08-28-2024 Patient encounter procedure Annie Thakur PHYSICIAN PRACTICE MARKET MANAGER.CNM Work Phone: OB/Gynecology Comment on above: 12 weeks gestation o f (Primary Dx); Encounter for supervision of other normal in second trimester; Multiparity Encounter for antena tony screening for malformation using ultrasound (Primary Dx); 12 weeks gestation of ; Encounter for (NT) nuchal translucency scan Start: 08-01-2024 End: 08-01-2024 Telephone encounter Nurse Sales Planning Manager Ej Lee Work Phone: Obstetrics/Gynecology Comment on above: PRAF Start: 07-31-2024 End: 07-31-2024 ambulatory ANNIE THAKUR Facility:[facility] Start: 07-31-2024 End: 07-31-2024 Patient encounter procedure Annie Thakur PHYSICIAN PRACTICE MARKET MANAGER.CNM Work Phone: OB/Gynecology Comment on above: Encounter for superv ision of normal in multigravida (Primary Dx); 8 weeks gestation of ; Multiparity Start: 07-27-2024 End: 07-29-2024 Refill Ling Daly PHYSICIAN PRACTICE MARKET MANAGER-SOCK BOARDER Work Phone: [facility] Comment on above: Encounter for initia l prescription of vaginal ring hormonal contraceptive Start: 10-25-2023 End: 10-25-2023 ambulatory Ling Daly [facility] Start: 07-27-2023 End: 07-27-2023 ambulatory MARYANN MATHIAS [facility] Start: 01-16-2023 End: 01-16-2023 ambulatory MARYANN SOLIZ [facility] Start: 01-16-2023 Encounter for genera l adult medical examination without abnormal findings LING DALY [facility] Start: 11-17-2022 End: 11-19-2022 Evaluation and management of inpatient ELIJAH Harvey LEWIS [facility] Start: 11-09-2022 End: 11-09-2022 ambulatory MARYANN MATHIAS Provider [facility] Start: 11-02-2022 End: 11-02-2022 ambulatory MAX LAU [facility] Start: 10-26-2022 End: 10-26-2022 ambulatory MARYANN MATHIAS Provider Locations Start: 10-12-2022 End: 10-12-2022 ambulatory HERNESTO PATHAK Provider Locations Start: 09-28-2022 End: 09-28-2022 ambulatory SAMANTHA Kinga ANI Provider Locations Start: 09-12-2022 End: 09-12-2022 ambulatory MARYANN MATHIAS Provider Loc[facility] Start: 08-31-2022 End: 08-31-2022 ambulatory MARYANN MATHIAS Provider Locations Start: 08-02-2022 End: 08-02-2022 ambulatory MARYANN MATHIAS Provider Locations Start: 06-30-2022 End: 06-30-2022 ambulatory DOMONIQUE JEWELL NINO Provider Locations Start: 06-30-2022 ambulatory ALBERTA Charanjit SUCCESSSARKIS [facility] Start: 05-25-2022 ambulatory MARYANN MATHIAS Provid er Locations Start: 04-23-2022 End: 04-23-2022 Emergency department patient visit JOSLYN PANDA [facility] Start: 04-23-2022 End: 04-23-2022 Emergency department patient visit Joslyn Panda MD Work Phone: [facility] Start: 04-12-2022 End: 04-12-2022 ambulatory MARYANN MATHIAS Provider Locations Start: 07-13-2017 Ambulatory Corrie Amaris Dos Santos lity:BMS Procedures Date Procedure Procedure Detail Performing Clinician Start: 03-11-2025 Urnls dip stick/tabl et rgnt non-auto w/o micrscp Khadra Mancini PHYSICIAN PRACTICE MARKET MANAGER.CNM Work Phone: Start: 03-07-2025 Urnls dip stick/tabl et rgnt non-auto w/o micrscp Annie Plotchapincito PHYSICIAN PRACTICE MARKET MANAGER.CNM Work Phone: Start: 03-05-2025 Urnls dip stick/tabl et rgnt non-auto w/o micrscp Annie Plotts PHYSICIAN PRACTICE MARKET MANAGER.CNM Work Phone: Start: 02-25-2025 Urnls dip stick/tabl et rgnt non-auto w/o micrscp Khadra Live PHYSICIAN PRACTICE MARKET MANAGER.CNM Work Phone: Start: 02-11-2025 Urnls dip stick/tabl et rgnt non-auto w/o micrscp Chinyere Lehman MD Work Phone: Start: 10-23-2024 Us preg uterus after 1st trimest 1/ gestation Annie Thakur PHYSICIAN PRACTICE MARKET MANAGER.CNM Work Phone: Start: 08-28-2024 Us preg uterus after 1st trimest 1/1st gestation Annie Thakur PHYSICIAN PRACTICE MARKET MANAGER.CNM Work Phone: Start: 07-31-2024 Antibody screen KYRA THAKUR Comment on above: Order Comment: Speci men Type: BLOOD SPECIMEN Ordering Facility: [facility] Address: [address] [place] [address] Performed By: #### T SPN #### CC MAIN BLOOD BANK [facility] [id number] [address] [place] [address] [place] Start: 07-31-2024 Us uterus l imited 1/> fetuses Annie Thakur PHYSICIAN PRACTICE MARKET MANAGER.CNM Work Phone: Start: 05-24-2022 Antibody screen SAMANTHA DE X Start: 04-23-2022 Basic metabolic 2000 panel - Serum or Plasma Joslyn Panda MD Work Phone: Start: 04-23-2022 Bilirubin direct Jignesh salvatore Panda MD Work Phone: Start: 04-23-2022 CBC W Auto Different ial panel - Blood Joslyn Panda MD Work Phone: Start: 04-23-2022 COMPLETE BLOOD COUNT WITH DIFFERENTIAL Joslyn Panda MD Work Phone: Plan of Treatment Date Care Activity Detail Author Start: 07-31-2029 Screening for malign ant neoplasm of cervix Cervical Cancer Screening [facility] Start: 07-31-2027 Screening for malign ant neoplasm of cervix Cervical Cancer Screening [facility] Start: 03-18-2025 End: 03-18-2025 Patient encounter procedure OB/Gynecology Comment on above: NST NST only Start: 03-17-2025 Influenza vaccination C [facility] Start: 03-14-2025 End: 03-14-2025 Patient encounter procedure Maternal Medicine Comment on above: Growth Sweep Start: 03-11-2025 End: 03-11-2025 Patient encounter procedure 03/11/2025 10:30 AM EDT Routine Office Visit OB/Gynecology [address] [place] [address] Khadra Mancini APRN.CNM [address] [place] [address] (Fax) OB OB/Gynecology Comment on above: OB Start: 03-07-2025 End: 03-07-2025 Patient encounter procedure 03/07/2025 1:15 PM EDT Routine Office Visit OB/Gynecology [address] [place] [address] Annie Thakur APRN.CNCandice [address] [place] [address] (Fax) membrane sweep/OK per CP OB/Gynecology Comment on above: membrane sweep/OK pe r CP Start: 03-05-2025 End: 03-05-2025 Patient encounter procedure 03/05/2025 9:00 AM EDT Routine Office Visit OB/Gynecology [address] [place] [address] Annie Thakur APRN.CNCandice [address] [place] [address] (Fax) OB OB/Gynecology Comment on above: OB Start: 02-25-2025 End: 02-25-2025 Patient encounter procedure 02/25/2025 8:00 AM EDT Routine Office Visit OB/Gynecology [address] [place] [address] Khadra Mancini APRN.CNCandice [address] [place] [address] (Fax) OB OB/Gynecology Comment on above: OB Start: 02-18-2025 End: 02-18-2025 Patient encounter procedure 02/18/2025 10:30 AM EDT Routine Office Visit OB/Gynecology [address] [place] [address] Khadra Mancini APRN.CNM [address] [place] [address] OB OB/Gynecology Comment on above: OB Start: 02-11-2025 End: 02-11-2025 Patient encounter procedure 02/11/2025 8:40 AM EDT Routine Office Visit OB/Gynecology [address] [place] [address] Chinyere Friend MD [address] [place] [address] OB OB/Gynecology Comment on above: OB Start: 01-28-2025 End: 01-28-2025 Patient encounter procedure 01/28/2025 8:30 AM EDT Routine Office Visit OB/Gynecology [address] [place] [address] Arthur Conklin MD [address] [place] [address] OB OB/Gynecology Comment on above: OB Start: 01-14-2025 End: 01-14-2025 Patient encounter procedure 01/14/2025 8:00 AM EDT Routine Office Visit OB/Gynecology [address] [place] [address] Khadra Mancini APRN.CNCandice [address] [place] [address] OB OB/Gynecology Comment on above: OB Start: 12-31-2024 End: 12-31-2024 Patient encounter procedure 12/31/2024 8:00 AM EDT Routine Office Visit OB/Gynecology [address] [place] [address] Khadra Mancini APRN.CNM [address] [place] [address] OB OB/Gynecology Comment on above: OB Start: 12-17-2024 End: 12-17-2024 Patient encounter procedure 12/17/2024 10:00 AM EDT Routine Office Visit OB/Gynecology [address] [place] [address] Khadra Mancini APRN.CNM [address] [place] [address] OB OB/Gynecology Comment on above: OB Start: 12-17-2024 End: 12-17-2024 ambulatory 12/17/2024 9:45 AM EDT Results Only Kaylan Yousif [facility] [address] [place] [address] Glucose Test [facility] Comment on above: Glucose Test Start: 11-19-2024 End: 02-18-2025 ANEMIA REFLEX PANEL ANEMIA REFLEX PANEL Lab Routine Screening for diabetes mellitus Expected: 11/19/2024, Expires: 02/18/2025 [facility] Comment on above: Expected: 11/19/2024 , Expires: 02/18/2025 Start: 11-19-2024 End: 11-19-2025 GESTATIONAL GLUCOSE SCREEN, 1-HOUR, 50 GRAM, NON-FASTING GESTATIONAL GLUCOSE SCREEN, 1-HOUR, 50 GRAM, NON-FASTING Lab Routine Screening for diabetes mellitus Expected: 11/19/2024, Expires: 11/19/2025 [facility] Work Phone: Comment on above: Expected: 11/19/2024 , Expires: 11/19/2025 Start: 11-19-2024 End: 11-19-2025 SYPHILIS TREPONEMAL W/REFLEX SYPHILIS TREPONEMAL W/REFLEX Lab Routine Screening for diabetes mellitus Expected: 11/19/2024, Expires: 11/19/2025 [facility] Comment on above: Expected: 11/19/2024 , Expires: 11/19/2025 Start: 11-19-2024 End: 11-19-2024 Patient encounter procedure 11/19/2024 11:15 AM EDT Routine Office Visit OB/Gynecology [address] [place] [address] Khadra Mancini APRN.CNM [address] [place] [address] OB OB/Gynecology Comment on above: OB Start: 10-23-2024 End: 10-23-2024 Patient encounter procedure 10/23/2024 9:45 AM EDT Routine Office Visit OB/Gynecology [address] [place] [address] Annie Thakur APRN.CNM [address] [place] [address] Anatomy/OB OB/Gynecology Comment on above: Anatomy/OB Start: 10-23-2024 End: 10-23-2024 Patient encounter procedure 10/23/2024 8:30 AM EDT Routine Office Visit Maternal Medicine [address] [place] [address] Anatomy/OB Maternal Medicine Comment on above: Anatomy/OB Start: 09-24-2024 End: 09-24-2024 Patient encounter procedure 09/24/2024 9:45 AM EDT Routine Office Visit OB/Gynecology [address] [place] [address] Khadra Mancini APRN.CNM [address] [place] [address] OB Routine OB/Gynecology Comment on above: OB Routine Start: 08-28-2024 End: 08-28-2024 Patient encounter procedure Maternal Medicine Comment on above: Nuchal Start: 07-31-2024 End: 10-30-2024 ANEMIA REFLEX PANEL [facility] Work Phone: Comment on above: Expected: 07/31/2024 , Expires: 10/30/2024 Start: 07-31-2024 End: 10-30-2024 Hemoglobin A1c in Blood [facility] Comment on above: Expected: 07/31/2024 , Expires: 10/30/2024 Start: 07-31-2024 End: 10-30-2024 Hepatitis B virus surface Ag [Presence] in Serum [facility] Comment on above: Expected: 07/31/2024 , Expires: 10/30/2024 Start: 07-31-2024 End: 10-30-2024 Hepatitis C virus Ab [Presence] in Serum [facility] Comment on above: Expected: 07/31/2024 , Expires: 10/30/2024 Start: 07-31-2024 End: 10-30-2024 HIV 1+2 Ab [Presence] in Serum or Plasma by Immunoassay [facility] Comment on above: Expected: 07/31/2024 , Expires: 10/30/2024 Start: 07-31-2024 End: 07-31-2025 OBSTETRIC ULTRASOUND WHI OBSTETRIC ULTRASOUND WHI Anc Imaging Routine Encounter for supervision of normal in multigravida 8 weeks gestation of Expected: 07/31/2024, Expires: 07/31/2025 [facility] Comment on above: Expected: 07/31/2024 , Expires: 07/31/2025 Start: 07-31-2024 End: 10-30-2024 RUBELLA IGG ANTIBODY [facility] Comment on above: Expected: 07/31/2024 , Expires: 10/30/2024 Start: 07-31-2024 End: 10-30-2024 SYPHILIS TREPONEMAL W/REFLEX [facility] Comment on above: Expected: 07/31/2024 , Expires: 10/30/2024 Start: 07-31-2024 End: 10-30-2024 TYPE + SCREEN [facility] Comment on above: Expected: 07/31/2024 , Expires: 10/30/2024 Start: 05-19-2024 Screening for malign ant neoplasm of cervix Cervical Cancer Screening [facility] Start: 03-17-2024 Covid-19 Vaccine ( season) Covid-19 Vaccine ( season) [facility] Start: 03-17-2024 Influenza vaccination Influenza Vacc ine (#1) [facility] Start: 01-18-2024 Wellness Exam Wellness Exam [facility] Start: 04-27-2022 End: 04-27-2022 ambulatory 04/27/2022 OB Initial Visit photography coordinator Max Lau, PHYSICIAN PRACTICE MARKET MANAGER [address] [facility] [address] [place] [address] [facility] Start: 02-14-2022 Refusal of treatment by patient INFLUENZA VACCINE [facility] Start: 2021 HPV Vaccine (1 - 3-d ose SCDM series) HPV Vaccine (1 - 3-dose SCDM series) [facility] Start: 11-26-2019 COTEST / HPV COTEST / HPV [facility] Start: 11-26-2015 CERVICAL CANCER SCREENING CERVICAL CANCER SCREENING [facility] Start: 11-26-2015 Microscopic observat ion [Identifier] in Cervix by Cyto stain PAP SMEAR [facility] Start: 11-26-2015 Screening for malign ant neoplasm of cervix Cervical Cancer Screening [facility] Start: 2013 DTaP/Tdap/Td VACCINE S (1 - Tdap) DTaP/Tdap/Td VACCINES (1 - Tdap) [facility] Start: 2013 Hepatitis B Vaccine (1 of 3 - 19+ 3-dose series) Hepatitis B Vaccine (1 of 3 - 19+ 3-dose series) [facility] Start: 2013 Third diphtheria, tetanus and acellular pertussis (DTaP) vaccination DTaP,Tdap,and Td Vaccine (1 - Tdap) [facility] Start: 2013 Urine microalbumin profile DTaP,Tdap,Td Vaccine (1 - Tdap) [facility] Start: 2012 Anxiety Screening Anxiety Screening [facility] Start: 2012 Depression Screening Depression Scre ening [facility] Start: 2012 HEPATITIS C SCREENING HEPATITIS C SC REENING [facility] Start: 2009 HIV SCREENING HIV SCREENING [facility] Start: 1997 ANNUAL PREVENTIVE PHYSICAL (INCLUDES MAAP) ANNUAL PREVENTIVE PHYSICAL (INCLUDES MAAP) [facility] Start: 05-28-1995 COVID-19 VACCINE (#1) COVID-19 VACCI NE (#1) [facility] Start: 1994 HEPATITIS B VACCINES (1 of 3 - 3-dose series) HEPATITIS B VACCINES (1 of 3 - 3-dose series) [facility] Bacteria identified in Urine by Culture BACTERIAL CULTURE, URINE Microbiology Routine Encounter for supervision of normal in multigravida 8 weeks gestation of 07/31/2024 9:53 AM [facility] Chlamydia trachomatis+Neisseria gonorrhoeae DNA [Presence] in Unspecified specimen by MICHAEL with probe detection GONORRHEA/CHLAMYDIA NAAT Lab Routine Encounter for supervision of normal in multigravida 8 weeks gestation of 07/31/2024 9:53 AM [facility] nonstress test NON-S TRESS TEST Procedures Routine Encounter for supervision of other normal in third trimester (HCC) 40 weeks gestation of (HCC) Ordered: 03/11/2025 [facility] Comment on above: Ordered: 03/11/2025 HIGH RISK HUMAN PAPILLOMA VIRUS (HPV), PCR FOR DETECTION AND GENOTYPING HIGH RISK HUMAN PAPILLOMA VIRUS (HPV), PCR FOR DETECTION AND GENOTYPING Lab Routine Encounter for supervision of normal in multigravida 8 weeks gestation of 07/31/2024 9:53 AM [facility] End: 02-23-2026 OBSTETRIC ULTRASOUND WHI OBSTETRIC ULTRASOUND [facility] Anc Imaging Routine Encounter for supervision of other normal in third trimester (HCC) 40 weeks gestation of (HCC) Once per month for 3 Occurrences starting 03/11/2025 until 02/23/2026 [facility] Work Phone: Comment on above: Once per month for 3 Occurrences starting 03/11/2025 until 02/23/2026 PAP TEST PAP TEST Lab Emerson borjas Encounter for supervision of normal in multigravida 8 weeks gestation of 07/31/2024 9:53 AM [facility] ROUTINE, GR OUP B STREPTOCOCCUS BY PCR ROUTINE, GROUP B STREPTOCOCCUS BY PCR Microbiology Routine Encounter for supervision of other normal in third trimester (HCC) 02/11/2025 9:00 AM EDT [facility] Work Phone: URINE OB DIP B/O URINE OB DIP B/ O Lab Routine 34 weeks gestation of (HCC) Encounter for supervision of other normal in third trimester (HCC) Ordered: 01/28/2025 [facility] Work Phone: Comment on above: Ordered: 01/28/2025 Immunizations Immunization Date Immunization Notes Care Provider Musa chamorro 05-21-2018 influenza virus vacc ine, unspecified formulation Ling Daly PHYSICIAN PRACTICE MARKET MANAGER-SOCK BOARDER Work Phone: [facility] Payers Date Payer Category Payer Managed Care (Private) [facility] [id number] 2022 Medicaid [id number] 2022 Medicaid [id number] 2022 Unknown [id number] 2020 Private Health Insurance [id number] 2017 Unknown [id number] 2014 Unknown [id number] 1994 Unknown [id number]. 201 1994 Unknown [id number] 2.16.840.1.844102.3.579.2. 201 1994 Unknown [id number] 2.16.840.1.970155.3.579.2. 201 Private Health Insurance [facility] PLUS [id number] Effective for all dates [address] [address] [place] [address] EPO [id number] Unknown [id number] 2.16.840.1.881408.3.579.2. 246 Unknown [id number] 2.16.840.1.127216.3.579.2. 246 Unknown [id number] 2.16.840.1.464669.3.579.2. 246 Unknown [id number] 2.16.840.1.719564.3.579.2. 246 Unknown [id number] 2.16.840.1.008139.3.579.2. 246 Unknown [id number] 2.16.840.1.908626.3.579.2. 246 Unknown [id number] 2.16.840.1.033451.3.579.2. 246 Unknown [id number] 2.16.840.1.062362.3.579.2. 246 Unknown [id number] 2.16.840.1.476419.3.579.2. 246 Unknown [id number] 2.16.840.1.841005.3.579.2. 246 Unknown [id number] 2.16.840.1.289694.3.579.2. 246 Unknown [id number] 2.16.840.1.328717.3.579.2. 246 Unknown [id number] 2.16840.1.344960.3.579.2. 246 Unknown [id number] 2.16840.1.191337.3.579.2. 246 Unknown [id number] Unknown [id number] Social History Date Type Detail Facility Start: 02-02-2011 End: 04-12-2022 Tobacco smoking status [facility] Never smoked tobacco [facility] Start: 02-02-2011 End: 04-12-2022 Tobacco use and exposure Smokeless tobacco non-user [facility] Start: 04-23-2022 End: 03-07-2025 Alcohol intake Ex-drinker (finding) [facility] Start: 1995 Sex Assigned At Not on file P [facility] Start: 04-13-2022 End: 04-23-2022 Exposure to SARS-CoV-2 (event) Not sure [facility] Start: 10-25-2023 Alcoholic beverage intake Curr ent non-drinker of alcohol (finding) [facility] Start: 10-25-2023 End: 07-31-2024 History of Social function [facility] Start: 10-25-2023 End: 07-31-2024 Tobacco use panel [facility] The thought of jt archer myself has occurred to me Never [facility] Start: 06-17-2012 National Score (1-10 0), lower number is lower risk 60 [facility] Start: 06-15-2024 [facility] Start: 1995 Sex assigned at Female C [facility] Start: 07-30-2024 Gender identity Identifies as female gender (finding) [facility] Start: 07-30-2024 Sexual orientation Heterosexual (evelyne cade) [facility] Goals Date Patient Goal Desired Activity /State Personal health goal Comment on above: Formatting of this n ote might be different from the original. Pt to follow up with a pap smear in 2 mo Personal health goal Functional Status Date Assessment Result Facility 05-18-2021 Are you deaf, or do you have serious difficulty hearing No 05/18/2021 9:50 AM Alana Andrews CMA [facility] Work Phone: 05-18-2021 Are you blind, or do you have serious difficulty seeing, even when wearing glasses No 05/18/2021 9:50 AM Alana Andrews CMA [facility] 05-18-2021 Do you have serious difficulty walking or climbing stairs No 05/18/2021 9:50 AM Alana Andrews CMA [facility] 05-18-2021 Do you have difficul ty dressing or bathing No 05/18/2021 9:50 AM Alana Andrews CMA [facility] 05-18-2021 Because of a physica l, mental, or emotional condition, do you have difficulty doing errands alone such as visiting a physician's office or shopping No 05/18/2021 9:50 AM Alana Andrews CMA [facility] Mental Status Date Assessment Result Facility 05-18-2021 Because of a physica l, mental, or emotional condition, do you have serious difficulty concentrating, remembering, or making decisions 05/18/2021 9:50 AM EDT Alana Murphy CMA No [facility] Clinical Notes 04-23-2022 to 03-12-2025 Telephone Encounter - Nica Law RN - 03/12/2025 4:04 PM EDTTelephone Encounter - Nica Law RN - 03/12/2025 4:04 PM EDTPatient InstructionsPatient InstructionsPatient Instructions Note Date & Type Note Facility 03-12-2025 Telephone encounter Note 40w4d Patient called to report that she has been kaden since 6 AM. 10 min apart up until the last hour where they are 6-8 min. Becoming more painful. Rating a 6. Not ruptured. Lost mucous plug at 6 AM. Good FM. No VB. Would like to continue to labor at home for several hours. Wants a water and asked to let midwives know. Message sent to CP. Patient aware that MAGDIEL and CP are not carbon capture power plant operator today. L&D notified. Updated H&P faxed to L&d. Patient lives minutes away from the hospital. Nica Law RN [facility] 03-12-2025 Miscellaneous Notes 40w4d Patient called to report that she has been kaden since 6 AM. 10 min apart up until the last hour where they are 6-8 min. Becoming more painful. Rating a 6. Not ruptured. Lost mucous plug at 6 AM. Good FM. No VB. Would like to continue to labor at home for several hours. Wants a water and asked to let midwives know. Message sent to CP. Patient aware that MAGDIEL and CP are not carbon capture power plant operator today. L&D notified. Updated H&P faxed to L&d. Patient lives minutes away from the hospital. Nica Law RN documented in this encounter [facility] 03-11-2025 Progress note Formatting of t his note might be different from the original. MAGDIEL-S: Yanet Banks is a 29 year old female who presents at 40w3d with KIA:03/08/2025, by Last Menstrual Period for a routine visit. Denies headache, visual changes, chest pain, shortness of breath, vaginal bleeding, leakage of fluid, or dysuria. Feeling well, no complaints. O: See flow sheet Gen: No apparent distress Abd: Gravid, nontender Cervical exam with membrane sweep, tolerated well and consented SENSITIVE EXAMINATION CONSENT: The sensitive examination was discussed with the Patient or Patient's Authorized [employer] Terrazzo Finisher. As applicable, any other physician, advance practice provider, medical student, or other health professional student that will be observing or involved in the sensitive examination for educational or training purposes was discussed with the Patient or Authorized [employer] Terrazzo Finisher. The Patient or Authorized [employer] Terrazzo Finisher has agreed to proceed with the sensitive examination. ASSESSMENT/PLAN: 1. Encounter for supervision of other normal in third trimester Reviewed postdates IOL vs expectant management. Wanting unmedicated and to await spontaneous labor. Discussed recomendation for IOL at 41 weeks.Risks of stillbirth, aging placenta, macrosomia, meconium and distress discussed. Recommend twice weekly testing with BPP and NST if continues past 41 weeks. -IOL on 03/21 at 0700 with MAGDIEL Stinson to manage 2. 40 weeks gestation of 3. Multiparity PTL precautions reviewed and when to call RTO in 3 days Khadra Mancini APRN.CNM [facility] 03-11-2025 Miscellaneous Notes MAGDIEL-S: Yanet Banks is a 29 year old female who presents at 40w3d with KIA:03/08/2025, by Last Menstrual Period for a routine visit. Denies headache, visual changes, chest pain, shortness of breath, vaginal bleeding, leakage of fluid, or dysuria. Feeling well, no complaints. O: See flow sheet Gen: No apparent distress Abd: Gravid, nontender Cervical exam with membrane sweep, tolerated well and consented SENSITIVE EXAMINATION CONSENT: The sensitive examination was discussed with the Patient or Patient's Authorized [employer] Terrazzo Finisher. As applicable, any other physician, advance practice provider, medical student, or other health professional student that will be observing or involved in the sensitive examination for educational or training purposes was discussed with the Patient or Authorized [employer] Terrazzo Finisher. The Patient or Authorized [employer] Terrazzo Finisher has agreed to proceed with the sensitive examination. ASSESSMENT/PLAN: 1. Encounter for supervision of other normal in third trimester Reviewed postdates IOL vs expectant management. Wanting unmedicated and to await spontaneous labor. Discussed recomendation for IOL at 41 weeks.Risks of stillbirth, aging placenta, macrosomia, meconium and distress discussed. Recommend twice weekly testing with BPP and NST if continues past 41 weeks. -IOL on 03/21 at 0700 with Pitocin, MAGDIEL to manage 2. 40 weeks gestation of 3. Multiparity PTL precautions reviewed and when to call RTO in 3 days Khadra Mancini APRN.CNM documented in this encounter [facility] 03-11-2025 Instructions Carli Youngblood MA - 03/11/2025 10:28 AM EDT SEQUENTIAL SCREENINGS The [facility] offers sequential screenings for women who are interested in screenings for chromosomal abnormalities and certain defects during a . The sequential screen combines ultrasound and blood tests to determine the risk of chromosomal abnormalities, including Down's Syndrome (Trisomy 21) and Trisomy 18, as well as open neural tube defects including spina bifida. Ultrasound examination is performed between 11 weeks and 13 weeks gestational age. Blood tests are drawn after the ultrasound and again later in the between 15 and 21 weeks gestational age. Please let your physician know if you are interested in this testing. It will require an appointment with our emissions testing and repair technician. This is not an ultrasound performed by a physician in our office during a routine visit. SIGNS AND SYMPTOMS OF LABOR 1. Contractions every 10 minutes or more often 2. Clear, pink, or brownish fluid (water) leaking from vagina 3. Feeling that baby is pushing down, pressure 4. Low, dull backache 5. Cramps that feel like a period 6. Cramps with or without diarrhea If you notice any of the above symptoms, contact our office at [phone] and ask to speak with a nurse. After hours, you can call doctors registry at [phone] OR call [facility] at [phone] and ask to have the doctor carbon capture power plant operator paged. If you consider this an emergency, dial 3-7-2 or go to your nearest emergency department. NEED HELP? Are you dealing with a violent or abusive relationship? Are you a victim of rape or sexual assult? Call [facility] ([place]) 24 hour Crisis Hotline: 817.319.2561 or 288-930-8714. MANUAL Your Guide to a Healthy manual is now on-line. Visit [email or web address] Dayne to download your free copy documented in this encounter [facility] 03-07-2025 Telephone encounter Note Faxed signed [facility] consent to [facility] 03/07/2025. Erasto Brunson LPN [facility] 03-07-2025 Miscellaneous Notes Faxed signed [facility] consent to [facility] 03/07/2025. Erasto Brunson LPN documented in this encounter [facility] 03-07-2025 Progress note Formatting of t his note might be different from the original. S: Yanet Banks is a 29 year old female who presents at 39 weeks gestation for a routine visit with CE / membrane sweep. Positive movements. Occasional contractions. Denies headache, visual changes, chest pain, shortness of breath, vaginal bleeding, leakage of fluid, or dysuria. Feeling well, no complaints. O: See flow sheet Gen: No apparent distress Abd: Gravid, nontender CE 1.5/60/-2 - membranes swept without difficulty ASSESSMENT/PLAN: 1. 39 weeks gestation of 2. Encounter for supervision of other normal in third trimester - Water consent reviewed and signed - Reviewed labor precautions and timing of contractions - Patient stated will decline IV insertion- aware of risks- informed refusal - RTO 1 week or sooner if needed Annie Thakur APRN.CNM [facility] 03-07-2025 Miscellaneous Notes S: Yanet Bansk is a 29 year old female who presents at 39 weeks gestation for a routine visit with CE / membrane sweep. Positive movements. Occasional contractions. Denies headache, visual changes, chest pain, shortness of breath, vaginal bleeding, leakage of fluid, or dysuria. Feeling well, no complaints. O: See flow sheet Gen: No apparent distress Abd: Gravid, nontender CE 1.5/60/-2 - membranes swept without difficulty ASSESSMENT/PLAN: 1. 39 weeks gestation of 2. Encounter for supervision of other normal in third trimester - Water consent reviewed and signed - Reviewed labor precautions and timing of contractions - Patient stated will decline IV insertion- aware of risks- informed refusal - RTO 1 week or sooner if needed Annie Thakur APRN.CNM documented in this encounter [facility] 03-07-2025 Instructions Erasto Brunson LPN - 03/07/2025 1:09 PM EDT SEQUENTIAL SCREENINGS The [facility] offers sequential screenings for women who are interested in screenings for chromosomal abnormalities and certain defects during a . The sequential screen combines ultrasound and blood tests to determine the risk of chromosomal abnormalities, including Down's Syndrome (Trisomy 21) and Trisomy 18, as well as open neural tube defects including spina bifida. Ultrasound examination is performed between 11 weeks and 13 weeks gestational age. Blood tests are drawn after the ultrasound and again later in the between 15 and 21 weeks gestational age. Please let your physician know if you are interested in this testing. It will require an appointment with our emissions testing and repair technician. This is not an ultrasound performed by a physician in our office during a routine visit. SIGNS AND SYMPTOMS OF LABOR 1. Contractions every 10 minutes or more often 2. Clear, pink, or brownish fluid (water) leaking from vagina 3. Feeling that baby is pushing down, pressure 4. Low, dull backache 5. Cramps that feel like a period 6. Cramps with or without diarrhea If you notice any of the above symptoms, contact our office at [phone] and ask to speak with a nurse. After hours, you can call doctors registry at [phone] OR call [facility] at [phone] and ask to have the doctor carbon capture power plant operator paged. If you consider this an emergency, dial 9--9 or go to your nearest emergency department. NEED HELP? Are you dealing with a violent or abusive relationship? Are you a victim of rape or sexual assult? Call [facility] ([place]) 24 hour Crisis Hotline: 915.861.3440 or 634-556-5981. MANUAL Your Guide to a Healthy manual is now on-line. Visit [email or web address] Dayne to download your free copy documented in this encounter [facility] 03-05-2025 Progress note Formatting of t his note might be different from the original. S: Yanet Banks is a 29 year old female who presents at 39.4 weeks gestation for a routine visit. Positive movements. Irregular contractions. Interested in discussing membrane sweep. Denies headache, visual changes, chest pain, shortness of breath, vaginal bleeding, leakage of fluid, or dysuria. Feeling well, no complaints. O: See flow sheet Gen: No apparent distress Abd: Gravid, non tender ASSESSMENT/PLAN: 1. 39 weeks gestation of (HCC) - ICD9: V22.2, ICD10: Z3A.39 (primary diagnosis) 2. Encounter for supervision of other normal in third trimester ([facility]) - ICD9: V22.1, - R/B of membrane sweep discussed and questions answered - Desires water - needs to sign consent - Plan is to return to office on Monday for CE with membrane sweep - Labor precautions reviewed and when to call Annie Thakur APRN.CNM [facility] 03-05-2025 Miscellaneous Notes S: Yanet Banks is a 29 year old female who presents at 39.4 weeks gestation for a routine visit. Positive movements. Irregular contractions. Interested in discussing membrane sweep. Denies headache, visual changes, chest pain, shortness of breath, vaginal bleeding, leakage of fluid, or dysuria. Feeling well, no complaints. O: See flow sheet Gen: No apparent distress Abd: Gravid, non tender ASSESSMENT/PLAN: 1. 39 weeks gestation of ([facility]) - ICD9: V22.2, ICD10: Z3A.39 (primary diagnosis) 2. Encounter for supervision of other normal in third trimester ([facility]) - ICD9: V22.1, - R/B of membrane sweep discussed and questions answered - Desires water - needs to sign consent - Plan is to return to office on Monday for CE with membrane sweep - Labor precautions reviewed and when to call Annie Thakur APRN.CNM documented in this encounter [facility] 03-05-2025 Instructions Erasto Brunson LPN - 03/05/2025 8:38 AM EDT SEQUENTIAL SCREENINGS The [facility] offers sequential screenings for women who are interested in screenings for chromosomal abnormalities and certain defects during a . The sequential screen combines ultrasound and blood tests to determine the risk of chromosomal abnormalities, including Down's Syndrome (Trisomy 21) and Trisomy 18, as well as open neural tube defects including spina bifida. Ultrasound examination is performed between 11 weeks and 13 weeks gestational age. Blood tests are drawn after the ultrasound and again later in the between 15 and 21 weeks gestational age. Please let your physician know if you are interested in this testing. It will require an appointment with our emissions testing and repair technician. This is not an ultrasound performed by a physician in our office during a routine visit. SIGNS AND SYMPTOMS OF LABOR 1. Contractions every 10 minutes or more often 2. Clear, pink, or brownish fluid (water) leaking from vagina 3. Feeling that baby is pushing down, pressure 4. Low, dull backache 5. Cramps that feel like a period 6. Cramps with or without diarrhea If you notice any of the above symptoms, contact our office at [phone] and ask to speak with a nurse. After hours, you can call doctors registry at [phone] OR call [facility] at [phone] and ask to have the doctor carbon capture power plant operator paged. If you consider this an emergency, dial 9-1-5 or go to your nearest emergency department. NEED HELP? Are you dealing with a violent or abusive relationship? Are you a victim of rape or sexual assult? Call [facility] ([place]) 24 hour Crisis Hotline: 373.895.7240 or 991-817-0043. MANUAL Your Guide to a Healthy manual is now on-line. Visit [email or web address] Dayne to download your free copy documented in this encounter [facility] 02-25-2025 Note HNO ID: [id number] Author: NIRU CASAREZ MA Service: ? Author Type: Classified Advertising Manager Type: Progress Notes Filed: 02/25/2025 14:13 Note Text: POPULATION HEALTH NAVIGATION OUTREACH Action/FYI Sales Professional updated per documentation. Reason for Outreach Medicaid OB/Peds Care Gaps due: N/A Patient Contacted: Unable or unnecessary to reach patient: Morris box lidder added Navigation Signature: Niru Birch MA February 25, 2025 12:14 PM [facility] 02-25-2025 History of Presen t illness Narrative POPULATION HEALTH NAVIGATION OUTREACH Action/FYI Sales Professional updated per documentation. Reason for Outreach Medicaid OB/Peds Care Gaps due: N/A Patient Contacted: Unable or unnecessary to reach patient: box lidder added Navigation Signature: Niru Birch MA February 25, 2025 12:14 PM documented in this encounter [facility] 02-25-2025 Progress note Formatting of t his note is different from the original. MAGDIEL-S: Yanet Banks is a 29 year old female who presents at 38w3d with KIA:03/08/2025, by Last Menstrual Period for a routine visit. Denies headache, visual changes, chest pain, shortness of breath, vaginal bleeding, leakage of fluid, or dysuria. Feeling well, no complaints. O: See flow sheet Gen: No apparent distress Abd: Gravid, nontender 29lb TWG, S=D, cephalic GBS negative ASSESSMENT/PLAN: 1. Encounter for supervision of other normal in third trimester -Continue PNV -Sign waterbirth consent next visit -Planning to decline IV placement during labor. Discussed potential risks of being unable to place IV in emergency situation and delay of care. Recommend IV placement. Informed refusal and states will decline placement. 2. 38 weeks gestation of Labor instructions reviewed and when to call RTO in 1 weeks Khadra Mancini APRN.CNM [facility] 02-25-2025 Miscellaneous Notes MAGDIEL-S: Yanet Banks is a 29 year old female who presents at 38w3d with KIA:03/08/2025, by Last Menstrual Period for a routine visit. Denies headache, visual changes, chest pain, shortness of breath, vaginal bleeding, leakage of fluid, or dysuria. Feeling well, no complaints. O: See flow sheet Gen: No apparent distress Abd: Gravid, nontender 29lb TWG, S=D, cephalic GBS negative ASSESSMENT/PLAN: 1. Encounter for supervision of other normal in third trimester -Continue PNV -Sign waterbirth consent next visit -Planning to decline IV placement during labor. Discussed potential risks of being unable to place IV in emergency situation and delay of care. Recommend IV placement. Informed refusal and states will decline placement. 2. 38 weeks gestation of Labor instructions reviewed and when to call RTO in 1 weeks Khadra Mancini APRN.CNM documented in this encounter [facility] 02-25-2025 Instructions Carli Youngblood MA - 02/25/2025 8:00 AM EDT SEQUENTIAL SCREENINGS The [facility] offers sequential screenings for women who are interested in screenings for chromosomal abnormalities and certain defects during a . The sequential screen combines ultrasound and blood tests to determine the risk of chromosomal abnormalities, including Down's Syndrome (Trisomy 21) and Trisomy 18, as well as open neural tube defects including spina bifida. Ultrasound examination is performed between 11 weeks and 13 weeks gestational age. Blood tests are drawn after the ultrasound and again later in the between 15 and 21 weeks gestational age. Please let your physician know if you are interested in this testing. It will require an appointment with our emissions testing and repair technician. This is not an ultrasound performed by a physician in our office during a routine visit. SIGNS AND SYMPTOMS OF LABOR 1. Contractions every 10 minutes or more often 2. Clear, pink, or brownish fluid (water) leaking from vagina 3. Feeling that baby is pushing down, pressure 4. Low, dull backache 5. Cramps that feel like a period 6. Cramps with or without diarrhea If you notice any of the above symptoms, contact our office at [phone] and ask to speak with a nurse. After hours, you can call doctors registry at [phone] OR call [facility] at [phone] and ask to have the doctor carbon capture power plant operator paged. If you consider this an emergency, dial 9-1-1 or go to your nearest emergency department. NEED HELP? Are you dealing with a violent or abusive relationship? Are you a victim of rape or sexual assult? Call [facility] ([facility] 24 hour Crisis Hotline: 978.216.8339 or 229-452-5849. MANUAL Your Guide to a Healthy manual is now on-line. Visit [email or web address] Dayne to download your free copy documented in this encounter [facility] 02-25-2025 Note Patient Outreach (NE TNAV) DARRENYANET GONZALEZ ([id number]) 1995 F Date Time Provider Department 02/25/25 NIRU CASAREZ During your visit today, we recorded the following information about you: Niru Casarez MA 02/25/2025 2:13 PM Signed POPULATION HEALTH NAVIGATION OUTREACH Action/FYI Sales Professional updated per documentation. Reason for Outreach Medicaid OB/Peds Care Gaps due: N/A Patient Contacted: Unable or unnecessary to reach patient: box lidder added Navigation Signature: Niru Birch MA February 25, 2025 12:14 PM Allergies As of Date: 02/25/2025 Noted Allergy Reaction TETANUS VACCINES AND TOXOID 12/08/2009 Comments: Ingredient in Old Tetanus Vaccine. ZITHROMAX (AZITHROMYCIN) 12/08/2009 8 - GI Upset Date Reviewed: 02/25/2025 Reviewed by: Carli Youngblood MA - Fully Assessed Reason for Visit: Population Health Navigation Outreach [3910] Cmt: Ob/peds Prescriptions as of 02/25/2025 - PNV no.95/ferrous fum/folic ac ( ORAL) Take 8 tablets by mouth once daily. Problem List As Of Date 02/25/2025 Noted Resolved Oligomenorrhea [N91.5] 12/08/2009 12/31/2024 Dysmenorrhea [N94.6] 12/08/2009 08/28/2024 Encounter for supervision of normal i*07/31/2024 Multiparity [Z64.1] 07/31/2024 Encounter Status:Closed by NIRU CASAREZ on 02/25/25 [facility] 02-11-2025 Progress note Formatting of t his note might be different from the original. DM-Pt doing well. Denies vaginal Bleeding, Leaking fluid, or regular Contractions. Pt reports good movement Physical Exam: Gen: female in no apparent distress Abd: soft, Gravid. Non tender to palpation. See flow sheet Participation of a fellow, resident, medical student, or advanced practice provider student in performing the sensitive examination was discussed with the patient or authorized patient account representative. The patient or authorized patient account representative has agreed to proceed with the sensitive examination. @ 36.3 weeks Assessment & Plan Encounter for supervision of other normal in third trimester (HCC) Orders: URINE OB DIP B/O ROUTINE, GROUP B STREPTOCOCCUS BY PCR 36 weeks gestation of ([facility]) GBS today Kick counts and labor reviewed RTO weekly Vertex confirmed on bedside US Orders: URINE OB DIP B/O Chinyere Enamorado MD [facility] Work Phone: 02-11-2025 Miscellaneous Notes DM-Pt doing well. Denies vaginal Bleeding, Leaking fluid, or regular Contractions. Pt reports good movement Physical Exam: Gen: female in no apparent distress Abd: soft, Gravid. Non tender to palpation. See flow sheet Participation of a fellow, resident, medical student, or advanced practice provider student in performing the sensitive examination was discussed with the patient or authorized patient account representative. The patient or authorized patient account representative has agreed to proceed with the sensitive examination. @ 36.3 weeks Assessment & Plan Encounter for supervision of other normal in third trimester (HCC) Orders: URINE OB DIP B/O ROUTINE, GROUP B STREPTOCOCCUS BY PCR 36 weeks gestation of ([facility]) GBS today Kick counts and labor reviewed RTO weekly Vertex confirmed on bedside US Orders: URINE OB DIP B/O Chinyere Enamorado MD documented in this encounter [facility] 02-11-2025 Instructions Melida Le MA - 02/11/2025 8:40 AM EDT SEQUENTIAL SCREENINGS The [facility] offers sequential screenings for women who are interested in screenings for chromosomal abnormalities and certain defects during a . The sequential screen combines ultrasound and blood tests to determine the risk of chromosomal abnormalities, including Down's Syndrome (Trisomy 21) and Trisomy 18, as well as open neural tube defects including spina bifida. Ultrasound examination is performed between 11 weeks and 13 weeks gestational age. Blood tests are drawn after the ultrasound and again later in the between 15 and 21 weeks gestational age. Please let your physician know if you are interested in this testing. It will require an appointment with our emissions testing and repair technician. This is not an ultrasound performed by a physician in our office during a routine visit. SIGNS AND SYMPTOMS OF LABOR 1. Contractions every 10 minutes or more often 2. Clear, pink, or brownish fluid (water) leaking from vagina 3. Feeling that baby is pushing down, pressure 4. Low, dull backache 5. Cramps that feel like a period 6. Cramps with or without diarrhea If you notice any of the above symptoms, contact our office at [phone] and ask to speak with a nurse. After hours, you can call doctors registry at [phone] OR call [facility] at [phone] and ask to have the doctor carbon capture power plant operator paged. If you consider this an emergency, dial 9-1-6 or go to your nearest emergency department. NEED HELP? Are you dealing with a violent or abusive relationship? Are you a victim of rape or sexual assult? Call [facility] ([place]) 24 hour Crisis Hotline: 275.444.8755 or 486-176-5497. MANUAL Your Guide to a Healthy manual is now on-line. Visit [email or web address] Dayne to download your free copy documented in this encounter [facility] 01-29-2025 Telephone encounter Note Patient notified and voiced understanding. Lolis Anders RN [facility] 01-29-2025 Miscellaneous Notes Patient notified and voiced understanding. Lolis Anders RN Agree call if pain is severe, persistent or associated with other symptoms such as bleeding, LOF. For pain in advise warm baths or showers, rest, and Tylenol PRN. If pain does not improve with that can call 34w3d Patient seen in office today and forgot to mention some pain she had on Monday after she was seen by the Chiropractor. Several hours after she had a side line adjustment on Monday she had a sharp pain in her cervix. Pain rate of 7-8. Said it felt much different than Luis Barnett. The pain returned again today after being seen in our office. Sharp again, but only a pain rate of 2. Patient asking if this pain could be related to her adjustment. Reassurance given. Advised to call the office if her pain continues, becomes more severe, or is accompanied with VB. Patient asked that message be sent to MAGDIEL. Advised provider is out of the office. Nica Law RN documented in this encounter [facility] 01-28-2025 Telephone encounter Note Agree call if pain is severe, persistent or associated with other symptoms such as bleeding, LOF. For pain in advise warm baths or showers, rest, and Tylenol PRN. If pain does not improve with that can call [facility] Work Phone: 01-28-2025 Telephone encounter Note 34w3d Patient seen in office today and forgot to mention some pain she had on Monday after she was seen by the Chiropractor. Several hours after she had a side line adjustment on Monday she had a sharp pain in her cervix. Pain rate of 7-8. Said it felt much different than Luis Barnett. The pain returned again today after being seen in our office. Sharp again, but only a pain rate of 2. Patient asking if this pain could be related to her adjustment. Reassurance given. Advised to call the office if her pain continues, becomes more severe, or is accompanied with VB. Patient asked that message be sent to MAGDIEL. Advised provider is out of the office. Nica Law RN [facility] 01-28-2025 Progress note Formatting of t his note might be different from the original. SW- Pt doing well. No regular ctx. No vb, lof. Good FM PE: Gen- NAD, well appearing Abd- Soft, gravid, NT See flowsheet A/p 34 wk gestation - Discussed eating dates in - Discussed upcoming expectations - RTO 2 wks Arthur Conklin DO [facility] 01-28-2025 Miscellaneous Notes SW- Pt doing well. No regular ctx. No vb, lof. Good FM PE: Gen- NAD, well appearing Abd- Soft, gravid, NT See flowsheet A/p 34 wk gestation - Discussed eating dates in - Discussed upcoming expectations - RTO 2 wks Arthur Conklin DO documented in this encounter [facility] 01-28-2025 Instructions Niru Lazo MA - 01/28/2025 8:38 AM EDT SEQUENTIAL SCREENINGS The [facility] offers sequential screenings for women who are interested in screenings for chromosomal abnormalities and certain defects during a . The sequential screen combines ultrasound and blood tests to determine the risk of chromosomal abnormalities, including Down's Syndrome (Trisomy 21) and Trisomy 18, as well as open neural tube defects including spina bifida. Ultrasound examination is performed between 11 weeks and 13 weeks gestational age. Blood tests are drawn after the ultrasound and again later in the between 15 and 21 weeks gestational age. Please let your physician know if you are interested in this testing. It will require an appointment with our emissions testing and repair technician. This is not an ultrasound performed by a physician in our office during a routine visit. SIGNS AND SYMPTOMS OF LABOR 1. Contractions every 10 minutes or more often 2. Clear, pink, or brownish fluid (water) leaking from vagina 3. Feeling that baby is pushing down, pressure 4. Low, dull backache 5. Cramps that feel like a period 6. Cramps with or without diarrhea If you notice any of the above symptoms, contact our office at [phone] and ask to speak with a nurse. After hours, you can call doctors registry at [phone] OR call [facility] at [phone] and ask to have the doctor carbon capture power plant operator paged. If you consider this an emergency, dial 91-0 or go to your nearest emergency department. NEED HELP? Are you dealing with a violent or abusive relationship? Are you a victim of rape or sexual assult? Call [facility] ([place]) 24 hour Crisis Hotline: 888.775.8745 or 447-359-1857. MANUAL Your Guide to a Healthy manual is now on-line. Visit [email or web address] Dayne to download your free copy documented in this encounter [facility] 01-14-2025 Progress note Formatting of t his note might be different from the original. MAGDIEL-S: Yanet Banks is a 29 year old female who presents at 32w3d with KIA:03/08/2025, by Last Menstrual Period for a routine visit. Denies headache, visual changes, chest pain, shortness of breath, vaginal bleeding, leakage of fluid, or dysuria. Feeling well, no complaints. O: See flow sheet Gen: No apparent distress Abd: Gravid, nontender 20lb TWG, S=D ASSESSMENT/PLAN: 1. Encounter for supervision of other normal in third trimester -Continue ASA and PNV -Handout given on perineal massage and ways to promote spontaneous labor 2. 32 weeks gestation of PTL precautions reviewed and when to call RTO in 2 weeks Khadra Mancini APRN.CNM [facility] 01-14-2025 Miscellaneous Notes GRACES: Yanet Banks is a 29 year old female who presents at 32w3d with KIA:03/08/2025, by Last Menstrual Period for a routine visit. Denies headache, visual changes, chest pain, shortness of breath, vaginal bleeding, leakage of fluid, or dysuria. Feeling well, no complaints. O: See flow sheet Gen: No apparent distress Abd: Gravid, nontender 20lb TWG, S=D ASSESSMENT/PLAN: 1. Encounter for supervision of other normal in third trimester -Continue ASA and PNV -Handout given on perineal massage and ways to promote spontaneous labor 2. 32 weeks gestation of PTL precautions reviewed and when to call RTO in 2 weeks Khadra Mancini APRN.CNM documented in this encounter [facility] 01-14-2025 Instructions Khadra Mancini APRN.CNM - 01/14/2025 8:03 AM EDT Images from the original note were not included. Preparing for labor: Eat dates to promote spontaneous labor! Has an oxytocin-like effect on the body, leading to increased sensitivity of the uterus. Stimulates uterine contractions. Reduces hemorrhage the way oxytocin does. Date fruit contains saturated and unsaturated fatty acids such as oleic, linoleic, and linolenic acids, which are involved in saving and supplying energy and construction of prostaglandins. In addition, serotonin, tannin, and calcium in date fruit contribute to the contraction of smooth muscles of the uterus. Date fruit also has a laxative effect, which stimulates uterine contractions. Six dates per day is the magic number--provided that you re eating smaller deglet noor dates. Deglet noor dates are about 1 inch long. Medjool dates can be up to 2 inches long. If you re eating medjool dates, you only need about 3 dates to reach the 75 grams recommended in the studies. Not sure which type of date you have in your refrigerator? It s probably a deglet noor. How to Eat Dates During Dates are a healthy and delicious snack, so how can you add them to your diet? Add dates during in this awesome oatmeal recipe. Add dates to replace sugar in your favorite recipe or to eduardo your homemade almond milk. Use dates and nuts to make an easy pie crust in the food service substitute. Add soaked dates to homemade nut butter for a sweet treat. Add dates to eduardo homemade salad dressing. Add dates during easily with these yummy (paleo friendly) bars made from dates. What Is Red Raspberry Dilley Tea? Red raspberry leaf tea comes from the leaves of the red raspberry plant. This herbal tea has been used for centuries to support respiratory, digestive and uterine health, particularly during and childbearing years. While usually known as a female herb, red raspberry leaf tea can also help support the prostate and various stomach ailments in children. How It Can Help and Red raspberry leaf tea can help to make labor faster and reduce complications and interventions during . One study found that women who consumed RRL tea regularly are less likely to go overdue or give prematurely. These women may also be less likely to receive an artificial rupture of their membranes or require a section, forceps, or vacuum than the women in the control group. Red raspberry leaf has many other benefits to , , and too. How Much Red Raspberry Dilley Tea to Drink? With your doctor or pulverizer mill operator s approval, start with 1 cup of red raspberry leaf tea per day starting in the second trimester. Watch for any uterine cramping or other reactions. If you don t experience any, you can talk to your healthcare provider about increasing to 2 cups per day. Again, watch for any uterine cramping. If you notice any, cut back on your dosage for two weeks and try again. Keep in mind, some moms have irritable uteruses and can only drink red raspberry leaf tea once they reach their due date because of uterine cramping. Is Red Raspberry Dilley Tea the Same as Raspberry Dilley Tea? How About Plain Old Raspberry Tea? Sometimes. You really need to look at the ingredients to be sure. Note that there is no difference between red raspberry leaf and raspberry leaf. Conjure Op or Zinio Raspberry Dilley Tea are two good brands. The red raspberry leaf teas that we recommend are 100% red raspberry leaf. Other teas labeled as raspberry are often a blend of rosehips, hibiscus, raspberry leaves, and raspberry flavor. So they may not be as effective. The teas to avoid are raspberry-flavored herbal teas, which may have ingredients like hibiscus, austin hips, apples, elderberries, natural and artificial raspberry flavors. Teas like this don t contain raspberry leaf at all and thus won t offer any of the potential benefits of RRLT outlined in this article. The [employer] www.Prowl I named this 'circuit' after my friend Aziza Amos, who shared and discussed it with me when I was working with a client whose labor seemed to be stalled out and no longer progressing... This circuit is useful to help get the baby lined up, ideally, in the Left Occiput Anterior (PANCHITO) Position, both before labor begins and when some corrections need to be done during labor. Prenatally, this position set can help to rotate a baby. As a natural method of induction, this can help get things going if baby just needed a gentle nudge of position to set things off. To the best of my knowledge, this group of positions will not hurt a baby that is already lined up correctly. - Corrie Arevalo Before you Begin..... This circuit takes at least 90 minutes to complete so clear your schedule and make mental preparations so you can relax in your environment. The second step requires a lot of pillows so gather them up before beginning Before starting, you should empty your bladder! Have a nice drink nearby, and make sure it has a straw! If you are having contractions, this circuit should bedone through contractions, try not to change positions between steps Step One: Open-knee Chest Stay in this position for 30 minutes, start in cat/cow, then drop your chest as low as you can to the bed or the floor and your bottom as high as you can. Knees should be fairly wide apart, and the angle between the torso/thighs should be wider than 90 degrees. Wiggle around, prop with lots of pillows and use this time to get totally relaxed. This position allows the baby to scoot out of the pelvis a bit and gives them room to rotate, shift their head position, etc. If the person finds it helpful,careful positioning with a rebozo under the belly, with gentle tension from a support person behindcan help maintain this position for the full 30minutes. Step Two: Exaggerated Left Side Lying Roll to your left side, bringing your top leg as high as possible and keeping your bottom leg straight. Roll forward as much as possible,again using a lot of pillows. Sink into the bed and relax some more. If you fall asleep, that's totally okay and you can stay there! If not, stay here for at least another half an hour. Try and get your top right leg up towards your head and get as rolled over onto your belly as much as possible. If you repeat the circuit during labor, try alternating left and right sides. We know the photo the left is actually right side... just flip the image in your head. Step Three: Moving and Lunges Lunge, walk stairs facing sideways, 2 at a time, (have a lab tech downstairs of you!), take a walk outside with one foot on the curb and the other on the street, sit on a ball and hula- anything that's upright and putting your pelvis in open, asymmetrical positions. Spend at least 30 minutes doing this one as well to give your baby a chance to move down. If you are lunging or stair or curb walking, you should lunge/walk/go up stairs in the direction that feels better to you. The dumont with the lunge is that the toes of the higher leg and mom's belly button should be at right angles. Do not lunge over your knee, that closes the pelvis. Aziza Amos: Circuit Creator - www.[facility].c blanca Arevalo, LORI, BDT (NICOLE), LCCE, FACCE: Supporting Content - www.venkatesh.canvs.co Rose Gee: Photography - www.[email or web address] na [email or web address].canvs.co Pastora Garcia CD/CDT (ALIDA): Print and Feed Project Engineer - www.[employer] www.Prowl What is my perineum? Your perineum is the area between your vaginal opening and your rectum. This area stretches when you give , and sometimes the perineum or vagina will tear as your baby is being born. If your health care provider cuts an episiotomy during your , it is this area that is cut. You may need stitches after your baby is born if you have a tear or have an episiotomy. How often do perineal tears occur? About 4 to 8 out of every 10 women who give vaginally will have some tear in their perineum. About two?thirds of these women will need some stitches. Is an episiotomy necessary? An episiotomy is not necessary for most women. Although they were common before the , they are rarely done today. However, sometimes your health care provider may recommend an episiotomy just as your baby is being born. For example, an episiotomy can help if your baby needs to be born very quickly. You can ask your health care provider to talk with you about episiotomy during a visit. Can my health care provider do anything to help me avoid a tear? There are many ways that your health care provider can help to reduce your chance of tearing. For example, your provider may: Apply a warm compress to the perineum just before the baby comes out Recommend specific positions for you to be in as you push Provide gentle downward pressure on the baby's head as your baby is coming out Ask that you push your baby out between contractions Avoid the use of forceps or a vacuum to help your baby be born Can I do anything before the to help me avoid a tear? Preventing a perineal tear that occurs during has been the subject of many research studies. Several studies have found that perineal massage during the last weeks of can reduce tearing at for women giving for the first time. This massage--using 2 fingers to stretch your perineal tissues--is performed by you, in your home, once or twice a week, for the last 4 to 6 weeks of your . The next page of this handout tells how to do this massage. For every 15 women who do perineal massage, one woman will avoid an episiotomy and perineal tearing that needs stitches. While you massage, you can practice relaxing the muscles in your perineum. This can help you prepare for the stretching, burning feeling you may have when your baby's head is born. Relaxing this area during can help prevent tearing. Does perineal massage in help all women? Massage seems to work better for some women than others. Women having their first baby, women who are 30 years or older, and women who have had episiotomies before have fewer tears and less severe tears when perineal massage is done during the last weeks of . Can my partner help? Yes! Many women find that it is easier to have their partners do this massage. See the instructions for perineal massage on the next page for more information. Are there any risks to perineal massage during ? Not that we know of. It is free. It doesn't hurt. It is easy to do. And most women don't mind doing it. However, you should not stretch the perineum until it hurts or massage too often, which can hurt the skin in that area. Do not do perineal massage more than once or twice a week. Women who do it more often do not have a lower risk of perineal tearing. Check with your health care provider before beginning perineal massage. And, if you believe your amniotic fluid (bag of cabral) is leaking, check with your health care provider before putting anything in your vagina. Instructions for Perineal Massage During Wash your hands well, and make sure your fingernails are short. Relax in a private place where you can rest with your legs open and your knees bent. Some women like to lean on pillows for back support. Lubricate your thumbs and the perineal tissues. Use a lubricant such as vitamin E oil, coconut oil, almond oil, or any vegetable oil used for cooking--like olive oil. You may also try a water?soluble jelly, such as K?Y jelly, or your body's natural vaginal lubricant. Do not use baby oil, mineral oil, or petroleum jelly (Vaseline). Place your thumbs about 1 to 1.5 inches inside your vagina (see Figure 1). Press down (toward the anus) and to the sides until you feel a slight burning, stretching sensation. Hold that stretched position for 1 or 2 minutes. With your thumbs, slowly massage the lower half of the vagina using a U?shaped movement for 2 to 3 minutes at most. Concentrate on relaxing your muscles. This is a good time to practice slow, deep breathing techniques. Partners: If your partner is doing the perineal massage, follow the same basic instructions above. However, your partner should use his or her index fingers to do the massage (instead of thumbs). The same side?to?side, U?shaped, downward pressure method should be used. Good communication is important--be sure to tell your partner if you have too much pain or burning! Figure 1 1 Perineal Massage FleschChris Grade Level: 7.2 Approved July 2015. This handout replaces Perineal Massage in published in Volume 50, Issue 1, Aug 2004 SIGNS AND SYMPTOMS OF LABOR 1. Contractions every 10 minutes or more often 2. Clear, pink, or brownish fluid (water) leaking from vagina 3. Feeling that baby is pushing down, pressure 4. Low, dull backache 5. Cramps that feel like a period 6. Cramps with or without diarrhea If you notice any of the above symptoms, contact our office at [phone] and ask to speak with a nurse. After hours, you can call doctors registry at [phone] OR call [facility] at [phone] and ask to have the doctor carbon capture power plant operator paged. If you consider this an emergency, dial 9-1-1 or go to your nearest emergency department. NEED HELP? Are you dealing with a violent or abusive relationship? Are you a victim of rape or sexual assult? Call [facility] ([facility] 24 hour Crisis Hotline: 479.527.8945 or 893-551-9887. MANUAL Your Guide to a Healthy manual is now on-line. Visit [email or web address] Dayne to download your free copy documented in this encounter [facility] 01-01-2025 Telephone encounter Note 3rd risk assessment form submitted 01/01/2025. Nica Uriarte RN [facility] 01-01-2025 Miscellaneous Notes 3rd risk assessment form submitted 01/01/2025. Nica Uriarte RN documented in this encounter [facility] 12-31-2024 Progress note Formatting of t his note is different from the original. MAGDIEL-S: Yanet Banks is a 29 year old female who presents at 30w3d with KIA:03/08/2025, by Last Menstrual Period for a routine visit. Denies headache, visual changes, chest pain, shortness of breath, vaginal bleeding, leakage of fluid, or dysuria. Lower back pain and discomfort, worse at end of the day. O: See flow sheet Gen: No apparent distress Abd: Gravid, nontender S=D, 18lb TWG ASSESSMENT/PLAN: 1. Encounter for supervision of other normal in third trimester -Continue PNV -Declines ASA -Reviewed chiropractor for back pain and massage -Reviewed plan and signed. 2. 30 weeks gestation of PTL precautions reviewed and when to call RTO in 2 weeks Khadra Mancini APRN.CNM [facility] 12-31-2024 Miscellaneous Notes MAGDIEL-S: Yanet Banks is a 29 year old female who presents at 30w3d with KIA:03/08/2025, by Last Menstrual Period for a routine visit. Denies headache, visual changes, chest pain, shortness of breath, vaginal bleeding, leakage of fluid, or dysuria. Lower back pain and discomfort, worse at end of the day. O: See flow sheet Gen: No apparent distress Abd: Gravid, nontender S=D, 18lb TWG ASSESSMENT/PLAN: 1. Encounter for supervision of other normal in third trimester -Continue PNV -Declines ASA -Reviewed chiropractor for back pain and massage -Reviewed plan and signed. 2. 30 weeks gestation of PTL precautions reviewed and when to call RTO in 2 weeks Khadra Mancini APRN.CNM documented in this encounter [facility] 12-31-2024 Instructions Khadra Mancini APRN.CNM - 12/31/2024 8:07 AM EDT [facility] [address] [place] [id number] [facility] [address] [place], [place] [address] [facility] [address] [place] [address] [facility] [address] [place] [address] [email or web address] [address] [place] [address] [facility] [address] [place] [address] [email or web address] [address], [place] [id number] [email or web address] [facility] [phone] [facility] [address] [place] [address] [facility] [address] [address] [facility] [place] office also [phone] [email or web address] [facility] [phone] [place] [address] [facility], [facility] [address] [place] [address] [email or web address] [facility] [address] [place] [address] [email or web address] SIGNS AND SYMPTOMS OF LABOR 1. Contractions every 10 minutes or more often 2. Clear, pink, or brownish fluid (water) leaking from vagina 3. Feeling that baby is pushing down, pressure 4. Low, dull backache 5. Cramps that feel like a period 6. Cramps with or without diarrhea If you notice any of the above symptoms, contact our office at [phone] and ask to speak with a nurse. After hours, you can call doctors registry at [phone] OR call [facility] at [phone] and ask to have the doctor carbon capture power plant operator paged. If you consider this an emergency, dial 9-1-1 or go to your nearest emergency department. NEED HELP? Are you dealing with a violent or abusive relationship? Are you a victim of rape or sexual assult? Call [facility] ([place]) 24 hour Crisis Hotline: 389.622.9660 or 826-876-7970. MANUAL Your Guide to a Healthy manual is now on-line. Visit [email or web address]/[email or web address] Dayne to download your free copy documented in this encounter [facility] 12-17-2024 Progress note Formatting of t his note might be different from the original. MAGDIEL-S: Yanet Banks is a 29 year old female who presents at 28w3d with KIA:03/08/2025, by Last Menstrual Period for a routine visit. Denies headache, visual changes, chest pain, shortness of breath, vaginal bleeding, leakage of fluid, or dysuria. Feeling well, no complaints. O: See flow sheet Gen: No apparent distress Abd: Gravid, nontender ASSESSMENT/PLAN: 1. Encounter for supervision of other normal in third trimester - 1 hour GCT, CBC, and RPR today - O Positive - Decline Tdap, allergic - LARC form reviewed and signed. Patient declines - Depression screen negative - Opioid screen negative - plan form discussed and given to patient. Patient desires unmedicated and desires waterbirth 2. 28 weeks gestation of PTL precautions reviewed and when to call RTO in 2 weeks Khadra Mancini APRN.CNM [facility] Work Phone: 12-17-2024 Miscellaneous Notes MAGDIEL-S: Yanet Banks is a 29 year old female who presents at 28w3d with KIA:03/08/2025, by Last Menstrual Period for a routine visit. Denies headache, visual changes, chest pain, shortness of breath, vaginal bleeding, leakage of fluid, or dysuria. Feeling well, no complaints. O: See flow sheet Gen: No apparent distress Abd: Gravid, nontender ASSESSMENT/PLAN: 1. Encounter for supervision of other normal in third trimester - 1 hour GCT, CBC, and RPR today - O Positive - Decline Tdap, allergic - LARC form reviewed and signed. Patient declines - Depression screen negative - Opioid screen negative - plan form discussed and given to patient. Patient desires unmedicated and desires waterbirth 2. 28 weeks gestation of PTL precautions reviewed and when to call RTO in 2 weeks Khadra Mancini APRN.CNM documented in this encounter [facility] 12-17-2024 Instructions Khadra Mancini APRN.CNM - 12/17/2024 9:55 AM EDT COUNTING YOUR BABY'S MOVEMENTS Your Baby's regular movements are a sign of good health. Though babies may sleep for up to an hour, most of the time your baby is active and moving. On average, a healthy baby kicks or moves at least 10 times within a two-hour period. An easy way to check the health of your baby is to keep track of your baby's movements once a day (we call it kick counts). We think it is best to begin kick counts at 28 weeks of and continue once a day until your baby's . Please follow the directions below and record your baby's movements every day. Bring this Kick Count Record with you to all of your visits. How to count and record your baby's movements: Pick a time once a day to record your baby's movements. Your baby may be most active when you are at rest. Many women find after a meal to be the best time to record their baby's movements. Sit in a comfortable position and place your hands, palms down, on your baby. When you are ready to begin counting, look at the time. Chito the start time on the Kick Count Record. Count each time you feel your baby kick, move, roll, flutter, or swish. Continue counting until your baby has moved ten times. Chito the end time on the Kick Count Record. How many minutes did it take your baby to move ten times? Record this number in the box. If you do not count ten movements in two hours or less, call your health care provider right away for further instructions Day Date Day Date Day Start Start Start End End End Minutes to reach 10 kicks Minutes to reach 10 kicks Minutes to reach 10 kicks SIGNS AND SYMPTOMS OF LABOR 1. Contractions every 10 minutes or more often 2. Clear, pink, or brownish fluid (water) leaking from vagina 3. Feeling that baby is pushing down, pressure 4. Low, dull backache 5. Cramps that feel like a period 6. Cramps with or without diarrhea If you notice any of the above symptoms, contact our office at [phone] and ask to speak with a nurse. After hours, you can call [facility] at [phone] OR call [facility] at [phone] and ask to have the doctor carbon capture power plant operator paged. If you consider this an emergency, dial 9-1- or go to your nearest emergency department. NEED HELP? Are you dealing with a violent or abusive relationship? Are you a victim of rape or sexual assult? Call [facility] ([place]) 24 hour Crisis Hotline: 653.116.3303 or 033-991-6102. MANUAL Your Guide to a Healthy manual is now on-line. Visit [email or web address]/HealthyPreg genaroGugabriele to download your free copy documented in this encounter [facility] 11-19-2024 Progress note Formatting of t his note might be different from the original. MAGDIEL-S: Yaent Banks is a 28 year old female who presents at 24w3d with KIA:03/08/2025, by Last Menstrual Period for a routine visit. Denies headache, visual changes, chest pain, shortness of breath, vaginal bleeding, leakage of fluid, or dysuria. Feeling well, no complaints. O: See flow sheet Gen: No apparent distress Abd: Gravid, nontender ASSESSMENT/PLAN: 1. Encounter for supervision of other normal in second trimester -Continue PNV -Declines ASA 2. 24 weeks gestation of 3. Screening for diabetes mellitus -1hr GCT next visit PTL precautions reviewed and when to call RTO in 4 weeks [facility] 11-19-2024 Miscellaneous Notes MAGDIEL-S: Yanet Banks is a 28 year old female who presents at 24w3d with KIA:03/08/2025, by Last Menstrual Period for a routine visit. Denies headache, visual changes, chest pain, shortness of breath, vaginal bleeding, leakage of fluid, or dysuria. Feeling well, no complaints. O: See flow sheet Gen: No apparent distress Abd: Gravid, nontender ASSESSMENT/PLAN: 1. Encounter for supervision of other normal in second trimester -Continue PNV -Declines ASA 2. 24 weeks gestation of 3. Screening for diabetes mellitus -1hr GCT next visit PTL precautions reviewed and when to call RTO in 4 weeks documented in this encounter [facility] 11-19-2024 Instructions Raquel Beatty MA - 11/19/2024 11:23 AM EDT SEQUENTIAL SCREENINGS The [facility] offers sequential screenings for women who are interested in screenings for chromosomal abnormalities and certain defects during a . The sequential screen combines ultrasound and blood tests to determine the risk of chromosomal abnormalities, including Down's Syndrome (Trisomy 21) and Trisomy 18, as well as open neural tube defects including spina bifida. Ultrasound examination is performed between 11 weeks and 13 weeks gestational age. Blood tests are drawn after the ultrasound and again later in the between 15 and 21 weeks gestational age. Please let your physician know if you are interested in this testing. It will require an appointment with our emissions testing and repair technician. This is not an ultrasound performed by a physician in our office during a routine visit. SIGNS AND SYMPTOMS OF LABOR 1. Contractions every 10 minutes or more often 2. Clear, pink, or brownish fluid (water) leaking from vagina 3. Feeling that baby is pushing down, pressure 4. Low, dull backache 5. Cramps that feel like a period 6. Cramps with or without diarrhea If you notice any of the above symptoms, contact our office at [phone] and ask to speak with a nurse. After hours, you can call doctors registry at [phone] OR call [facility] at [phone] and ask to have the doctor carbon capture power plant operator paged. If you consider this an emergency, dial 4--9 or go to your nearest emergency department. NEED HELP? Are you dealing with a violent or abusive relationship? Are you a victim of rape or sexual assult? Call [facility] ([place]) 24 hour Crisis Hotline: 619.432.3436 or 792-377-7812. MANUAL Your Guide to a Healthy manual is now on-line. Visit [email or web address]/HealthyPreg Dayne to download your free copy documented in this encounter [facility] 10-24-2024 Telephone encounter Note 2nd risk assessment form submitted 10/24/2024. Nica Uriarte RN [facility] 10-24-2024 Miscellaneous Notes 2nd risk assessment form submitted 10/24/2024. Nica Uriarte RN documented in this encounter [facility] 10-23-2024 Progress note Formatting of t his note might be different from the original. S: Yanet Banks is a 28 year old female who presents at 20 weeks gestation for a routine visit. Just completed anatomy US- Having a boy! Started feeling movements 2 weeks ago. Denies headache, visual changes, chest pain, shortness of breath, vaginal bleeding, leakage of fluid, or dysuria. Having some hip pain but seeing chiropractor. O: See flow sheet Gen: No apparent distress Abd: Gravid, nontender ASSESSMENT/PLAN: 1. 20 weeks gestation of (HCC) 2. Encounter for supervision of other normal in second trimester - Declines ASA - Continue PO daily - RTO 4 weeks Annie Thakur APRN.CNM [facility] 10-23-2024 Miscellaneous Notes S: Yanet Banks is a 28 year old female who presents at 20 weeks gestation for a routine visit. Just completed anatomy US- Having a boy! Started feeling movements 2 weeks ago. Denies headache, visual changes, chest pain, shortness of breath, vaginal bleeding, leakage of fluid, or dysuria. Having some hip pain but seeing chiropractor. O: See flow sheet Gen: No apparent distress Abd: Gravid, nontender ASSESSMENT/PLAN: 1. 20 weeks gestation of (HCC) 2. Encounter for supervision of other normal in second trimester - Declines ASA - Continue PO daily - RTO 4 weeks Annie Thakur APRN.CNM documented in this encounter [facility] 10-23-2024 Instructions Erasto Brunson LPN - 10/23/2024 8:42 AM EDT SEQUENTIAL SCREENINGS The [facility] offers sequential screenings for women who are interested in screenings for chromosomal abnormalities and certain defects during a . The sequential screen combines ultrasound and blood tests to determine the risk of chromosomal abnormalities, including Down's Syndrome (Trisomy 21) and Trisomy 18, as well as open neural tube defects including spina bifida. Ultrasound examination is performed between 11 weeks and 13 weeks gestational age. Blood tests are drawn after the ultrasound and again later in the between 15 and 21 weeks gestational age. Please let your physician know if you are interested in this testing. It will require an appointment with our emissions testing and repair technician. This is not an ultrasound performed by a physician in our office during a routine visit. SIGNS AND SYMPTOMS OF LABOR 1. Contractions every 10 minutes or more often 2. Clear, pink, or brownish fluid (water) leaking from vagina 3. Feeling that baby is pushing down, pressure 4. Low, dull backache 5. Cramps that feel like a period 6. Cramps with or without diarrhea If you notice any of the above symptoms, contact our office at [phone] and ask to speak with a nurse. After hours, you can call doctors registry at [phone] OR call [facility] at [phone] and ask to have the doctor carbon capture power plant operator paged. If you consider this an emergency, dial or go to your nearest emergency department. NEED HELP? Are you dealing with a violent or abusive relationship? Are you a victim of rape or sexual assult? Call [facility] ([place]) 24 hour Crisis Hotline: 992.558.5711 or 748-370-4456. MANUAL Your Guide to a Healthy manual is now on-line. Visit [email or web address]/[email or web address] Dayne to download your free copy documented in this encounter [facility] 09-24-2024 Progress note Formatting of t his note might be different from the original. MAGDIEL-S: Yanet Banks is a 28 year old female who presents at 16w3d with KIA:03/08/2025, by Last Menstrual Period for a routine visit. Denies headache, visual changes, chest pain, shortness of breath, vaginal bleeding, leakage of fluid, or dysuria. Feeling well, no complaints. O: See flow sheet Gen: No apparent distress Abd: Gravid, nontender ASSESSMENT/PLAN: 1. Encounter for supervision of other normal in second trimester -Continue PNV -Declines ASA -Anatomy US at 20wk 2. 16 weeks gestation of PTL precautions reviewed and when to call RTO in 4 weeks Khadra Mancini APRN.CNM [facility] Work Phone: 09-24-2024 Miscellaneous Notes MAGDIEL-S: Yanet Banks is a 28 year old female who presents at 16w3d with KIA:03/08/2025, by Last Menstrual Period for a routine visit. Denies headache, visual changes, chest pain, shortness of breath, vaginal bleeding, leakage of fluid, or dysuria. Feeling well, no complaints. O: See flow sheet Gen: No apparent distress Abd: Gravid, nontender ASSESSMENT/PLAN: 1. Encounter for supervision of other normal in second trimester -Continue PNV -Declines ASA -Anatomy US at 20wk 2. 16 weeks gestation of PTL precautions reviewed and when to call RTO in 4 weeks Khadra Mancini APRN.CNM documented in this encounter [facility] 03-11-2025 Rodo Bruno MA - 09/24/2024 9:34 AM EDT SEQUENTIAL SCREENINGS The [facility] offers sequential screenings for women who are interested in screenings for chromosomal abnormalities and certain defects during a . The sequential screen combines ultrasound and blood tests to determine the risk of chromosomal abnormalities, including Down's Syndrome (Trisomy 21) and Trisomy 18, as well as open neural tube defects including spina bifida. Ultrasound examination is performed between 11 weeks and 13 weeks gestational age. Blood tests are drawn after the ultrasound and again later in the between 15 and 21 weeks gestational age. Please let your physician know if you are interested in this testing. It will require an appointment with our emissions testing and repair technician. This is not an ultrasound performed by a physician in our office during a routine visit. SIGNS AND SYMPTOMS OF LABOR 1. Contractions every 10 minutes or more often 2. Clear, pink, or brownish fluid (water) leaking from vagina 3. Feeling that baby is pushing down, pressure 4. Low, dull backache 5. Cramps that feel like a period 6. Cramps with or without diarrhea If you notice any of the above symptoms, contact our office at [phone] and ask to speak with a nurse. After hours, you can call doctors registry at [phone] OR call [facility] at [phone] and ask to have the doctor carbon capture power plant operator paged. If you consider this an emergency, dial 9-1-2 or go to your nearest emergency department. NEED HELP? Are you dealing with a violent or abusive relationship? Are you a victim of rape or sexual assult? Call [facility] ([facility] 24 hour Crisis Hotline: 866.884.2628 or 072-407-0240. MANUAL Your Guide to a Healthy manual is now on-line. Visit [email or web address] to download your free copy documented in this encounter [facility] 08-28-2024 Progress note Formatting of t his note might be different from the original. S: Yanet Banks is a 28 year old female who presents at 12 weeks gestation for a routine visit. Just completed early anatomy ultrasound/NT. Declines aneuploidy screening. Reports feeling better and not nauseous. Denies headache, visual changes, chest pain, shortness of breath, vaginal bleeding, leakage of fluid, or dysuria. Feeling well, no complaints. O: See flow sheet Gen: No apparent distress Abd: Gravid, non tender ASSESSMENT/PLAN: 1. 12 weeks gestation of 2. Encounter for supervision of other normal in second trimester 3. Multiparity - Continue vitamin PO daily - Declines ASA - RTO 4 weeks Annie Thakur APRN.CNM [facility] 08-28-2024 Miscellaneous Notes S: Yanet Banks is a 28 year old female who presents at 12 weeks gestation for a routine visit. Just completed early anatomy ultrasound/NT. Declines aneuploidy screening. Reports feeling better and not nauseous. Denies headache, visual changes, chest pain, shortness of breath, vaginal bleeding, leakage of fluid, or dysuria. Feeling well, no complaints. O: See flow sheet Gen: No apparent distress Abd: Gravid, non tender ASSESSMENT/PLAN: 1. 12 weeks gestation of 2. Encounter for supervision of other normal in second trimester 3. Multiparity - Continue vitamin PO daily - Declines ASA - RTO 4 weeks Annie Thakur APRN.CNM documented in this encounter [facility] 08-28-2024 Rodo Bruno MA - 08/28/2024 9:20 AM EST SEQUENTIAL SCREENINGS The [facility] offers sequential screenings for women who are interested in screenings for chromosomal abnormalities and certain defects during a . The sequential screen combines ultrasound and blood tests to determine the risk of chromosomal abnormalities, including Down's Syndrome (Trisomy 21) and Trisomy 18, as well as open neural tube defects including spina bifida. Ultrasound examination is performed between 11 weeks and 13 weeks gestational age. Blood tests are drawn after the ultrasound and again later in the between 15 and 21 weeks gestational age. Please let your physician know if you are interested in this testing. It will require an appointment with our emissions testing and repair technician. This is not an ultrasound performed by a physician in our office during a routine visit. SIGNS AND SYMPTOMS OF LABOR 1. Contractions every 10 minutes or more often 2. Clear, pink, or brownish fluid (water) leaking from vagina 3. Feeling that baby is pushing down, pressure 4. Low, dull backache 5. Cramps that feel like a period 6. Cramps with or without diarrhea If you notice any of the above symptoms, contact our office at [phone] and ask to speak with a nurse. After hours, you can call doctors registry at [phone] OR call [facility] at [phone] and ask to have the doctor carbon capture power plant operator paged. If you consider this an emergency, dial 1-5-0 or go to your nearest emergency department. NEED HELP? Are you dealing with a violent or abusive relationship? Are you a victim of rape or sexual assult? Call [facility] ([place]) 24 hour Crisis Hotline: 316.203.7031 or 938-823-0298. MANUAL Your Guide to a Healthy manual is now on-line. Visit [email or web address] nancyGuide to download your free copy documented in this encounter [facility] 08-01-2024 Telephone encounter Note 1st risk assessment form submitted 08/01/24 Shi Medley RN [facility] 08-01-2024 Miscellaneous Notes 1st risk assessment form submitted 08/01/24 Shi Medley RN documented in this encounter [facility] 07-31-2024 Progress note Formatting of t his note might be different from the original. Patient is here for NOB. See progress note. Annie Thakur APRN.CNM [facility] 07-31-2024 Miscellaneous Notes Patient is here for NOB. See progress note. Annie Thakur APRN.CNM documented in this encounter [facility] 07-30-2024 Note HNO ID: [id number] Author: ANNIE THAKUR APRN.CNM Service: ? Author Type: Free Lance Artist Type: Progress Notes Filed: 07/31/2024 10:13 Note Text: INITIAL OB ASSESSMENT HPI: Yanet is a 28 year old White Female here to establish Obstetrical Care. Patient's last menstrual period was 06/01/2024 (exact date). from OB Dating Form. was planned Complaints: Mild nausea OB History T2 L2 SAB0 IAB0 Ectopic0 Multiple0 Live Births2 Previous history: Prior : never History of 4th degree laceration: No History of shoulder dystocia: No History of Hypertensive disorders including pre-eclampsia or gestational hypertension: No History of gestational diabetes: No Patient's Risk Screening for delivery: Have you had a prior salas between 20w and 36w6d? No How many pregnancies have you had before? 2 Did you have a previous baby with a GBS Infection? No Please select all that apply for any prior : N/A MEDICAL/PSYCHOSOCIAL HISTORY: History of hemorrhage or bleeding concerns: No Thyroid Disease: No History of chronic hypertension: No History of pre-existing diabetes: No No results found for: ABORHD No weight on file for this encounter. Last Pap: History of abnormal pap: No Prior treatment for cervical dysplasia: N/A. Last HPV: History of STDs: None Partner History of STDs: None Did you have a partner with Herpes? No Tobacco use: No E-Cigarette/Vaping Use: No Caffeine use: Yes Drug use: No Alcohol use: No Multivitamin with Folic acid: Yes Would refuse blood transfusion if medically necessary: No Social Needs: How often does this describe you? I don't have enough money to pay my bills: Never Within the past 12 months, have you worried that your food would run out before you had money to buy more? Never In the past 12 months, has lack of reliable transportation kept you from going to medical appointments or work, or from getting things needed for daily living? Never In the past 12 months, have you had any concerns about having a place to live, or about the condition or quality of your housing? Never Would you like more information on any of the following (please check all that apply)? Free Lance Artist care Social History: Do you have any history of depression, anxiety, PTSD, or other mood problems? No Do you have a history of abuse or trauma that may impact your experience? No Are you currently employed? No Depression/Anxiety Screening: denies symptoms of depression. OB Depression and Anxiety Screening- This Encounter (since 07/29/2024) Over the past 2 weeks have you felt down, depressed, or hopeless? Positive - Further Testing Indicated Over the past two weeks, have you felt little interest or pleasure in doing things?? Negative I have been able to laugh and see the funny side of things. As much as I always could I have looked forward with enjoyment to things. As much as I ever did I have blamed myself unnecessarily when things went wrong. No, never I have been anxious or worried for no good reason. No, not at all I have felt scared or panicky for no good reason. No, not at all Things have been getting on top of me. No, I have been coping as well as ever I have been so unhappy that I have had difficulty sleeping. Not at all I have felt sad or miserable. No, not at all I have been so unhappy that I have been crying. No, never The thought of harming myself has occurred to me. Never Tipton Depression Scale Total 0 Feeling nervous, anxious or on edge 0-Not at all Not being able to stop or control worrying 0-Not al all Anxiety Pre-Screening Total (If >/= 3 additional questions will be reviewed) 0 Genetic Screening: Partner present: Yes Patient verbalized knowledge of partner family health history: Yes Do you or your partner have any personal or family history of defects not previously discussed: No Do you have history of a complicated by anomaly, genetic condition, or demise: No Preeclampsia Risk Screening: Screening for prevention of preeclampsia: High risk factors: None Moderate risk ractors: None OB Risk Screening: Completed, no positive findings documented. Marital Status: Partner: Name: Yunier Age: 28 Occupation: Vocational Rehabilitation Specialist Gender: Male PAST MEDICAL HISTORY Diagnosis Date Irregular menses PAST SURGICAL HISTORY Procedure Laterality Date INSERTION OF IUD 05/11/15 IUD REMOVAL 10/12/2015 Current Outpatient Medications Medication Sig Dispense Refill PNV no.95/ferrous fum/folic ac ( ORAL) Take 8 tablets by mouth once daily. NUVARING 0.12-0.015 mg/24 hr vaginal ring INSERT VAGINALLY FOR 3 WEEKS. REMOVE FOR 1 WEEK (Patient not taking: Reported on 07/30/2024) 3 Each 1 levonorgestrel (MIRENA) 20 mcg/24 hr (5 years) IUD 1 Each by INTRAUTERINE route one time only. (Pat (more content not included)... [facility] 07-30-2024 History of Presen t illness Narrative INITIAL OB ASSESSMENT HPI: Yanet is a 28 year old White Female here to establish Obstetrical Care. Patient's last menstrual period was 06/01/2024 (exact date). from OB Dating Form. was planned Complaints: Mild nausea OB History T2 L2 SAB0 IAB0 Ectopic0 Multiple0 Live Births2 Previous history: Prior : never History of 4th degree laceration: No History of shoulder dystocia: No History of Hypertensive disorders including pre-eclampsia or gestational hypertension: No History of gestational diabetes: No Patient's Risk Screening for delivery: Have you had a prior salas between 20w and 36w6d? No How many pregnancies have you had before? 2 Did you have a previous baby with a GBS Infection? No Please select all that apply for any prior : N/A MEDICAL/PSYCHOSOCIAL HISTORY: History of hemorrhage or bleeding concerns: No Thyroid Disease: No History of chronic hypertension: No History of pre-existing diabetes: No No results found for: ABORHD No weight on file for this encounter. Last Pap: History of abnormal pap: No Prior treatment for cervical dysplasia: N/A. Last HPV: History of STDs: None Partner History of STDs: None Did you have a partner with Herpes? No Tobacco use: No E-Cigarette/Vaping Use: No Caffeine use: Yes Drug use: No Alcohol use: No Multivitamin with Folic acid: Yes Would refuse blood transfusion if medically necessary: No Social Needs: How often does this describe you? I don't have enough money to pay my bills: Never Within the past 12 months, have you worried that your food would run out before you had money to buy more? Never In the past 12 months, has lack of reliable transportation kept you from going to medical appointments or work, or from getting things needed for daily living? Never In the past 12 months, have you had any concerns about having a place to live, or about the condition or quality of your housing? Never Would you like more information on any of the following (please check all that apply)? Free Lance Artist care Social History: Do you have any history of depression, anxiety, PTSD, or other mood problems? No Do you have a history of abuse or trauma that may impact your experience? No Are you currently employed? No Depression/Anxiety Screening: denies symptoms of depression. OB Depression and Anxiety Screening- This Encounter (since 07/29/2024) Over the past 2 weeks have you felt down, depressed, or hopeless? Positive - Further Testing Indicated Over the past two weeks, have you felt little interest or pleasure in doing things? Negative I have been able to laugh and see the funny side of things. As much as I always could I have looked forward with enjoyment to things. As much as I ever did I have blamed myself unnecessarily when things went wrong. No, never I have been anxious or worried for no good reason. No, not at all I have felt scared or panicky for no good reason. No, not at all Things have been getting on top of me. No, I have been coping as well as ever I have been so unhappy that I have had difficulty sleeping. Not at all I have felt sad or miserable. No, not at all I have been so unhappy that I have been crying. No, never The thought of harming myself has occurred to me. Never Tipton Depression Scale Total 0 Feeling nervous, anxious or on edge 0-Not at all Not being able to stop or control worrying 0-Not al all Anxiety Pre-Screening Total (If >/= 3 additional questions will be reviewed) 0 Genetic Screening: Partner present: Yes Patient verbalized knowledge of partner family health history: Yes Do you or your partner have any personal or family history of defects not previously discussed: No Do you have history of a complicated by anomaly, genetic condition, or demise: No Preeclampsia Risk Screening: Screening for prevention of preeclampsia: High risk factors: None Moderate risk ractors: None OB Risk Screening: Completed, no positive findings documented. Marital Status: Partner: Name: Yunier Age: 28 Occupation: Vocational Rehabilitation Specialist Gender: Male PAST MEDICAL HISTORY Diagnosis Date Irregular menses PAST SURGICAL HISTORY Procedure Laterality Date INSERTION OF IUD 05/11/15 IUD REMOVAL 10/12/2015 Current Outpatient Medications Medication Sig Dispense Refill PNV no.95/ferrous fum/folic ac ( ORAL) Take 8 tablets by mouth once daily. NUVARING 0.12-0.015 mg/24 hr vaginal ring INSERT VAGINALLY FOR 3 WEEKS. REMOVE FOR 1 WEEK (Patient not taking: Reported on 07/30/2024) 3 Each 1 levonorgestrel (MIRENA) 20 mcg/24 hr (5 years) IUD 1 Each by INTRAUTERINE route one time only. (Patient not taking: Reported on 07/30/2024) misoprostol (CYTOTEC) 200 mcg tablet Take 1 tablet by mouth every 6 hours as needed. (Patient not taking: Reported on 07/30/2024) 2 tablet 0 No current facility-administered medications for this visit. Allergies As of Date: 07/31/2024 Allergen Noted Reaction TETANUS VACCINES AND TOXOID 12/08/2009 ZITHROMAX [AZITHROMYCIN] 12/08/2009 GI Upset Fully Assessed 07/30/2024 Does patient have penicillin allergy: No REVIEW OF SYSTEMS: GENERAL: Negative for: Fever or Chills and Positive for: Fatigue HEENT: Negative for: Headache, Impaired Vision, Ringing in Ears, Nosebleeds NECK: Negative for: Swelling, Pain, Stiffness RESPIRATORY: Negative for: Cough, Shortness of breath, Wheezing GASTROINTESTINAL: Negative for: Heartburn, Constipation, Diarrhea, Blood in stool, Vomiting MUSCULOSKELETAL: Negative for: Muscle or joint pain, stiffness, Joint swelling NEUROLOGIC/PSYCHIATRIC: Negative for: Weakness, Paralysis, Numbness, Tingling, Tremor, Anxiety, Depression, Memory loss SKIN: Negative for: Rash, Itching GENITOURINARY: Negative for: vaginal itching, vaginal discharge, hematuria or dysuria SENSITIVE EXAM: The sensitive examination was discussed with the Patient or Patient's Authorized Granite Chip Terrazzo Finisher. As applicable, any other physician, advance practice provider, medical student, or other health professional student that will be observing or involved in the sensitive examination for educational or training purposes was discussed with the Patient or Authorized Granite Chip Terrazzo Finisher. The Patient or Authorized Granite Chip Terrazzo Finisher has agreed to proceed with the sensitive examination. (Sensitive examination includes inspection and/or palpation of the breasts, pelvis, prostate and anorectal regions). PHYSICAL EXAM: BP 122/60 Wt 124 lb 6.4 oz (56.4kg) LMP 06/01/2024 GENERAL: pleasant in no apparent distress DERMATOLOGY: Normal, without lesions, non-icteric, and non-hirsute NECK: Supple, full range of motion, no adenopathy, and thyroid normal CHEST: Normal inspiratory effort BREAST: soft, non-tender, symmetric, no dominant mass, normal nipple-areolar complex, no lymphadenopathy, and no nipple discharge ABDOMEN: soft, non-tender, and no masses NEURO: alert and oriented x3,exam grossly non-focal PELVIS: External genitalia normal without lesions. Perineal body intact. No vaginal or cervical lesions. Cervix closed. Clinical Pelvimetry: Pelvimetry clinically assessed as adequate Limited OB ultrasound exam: single intrauterine , positive cardiac activity, and crown-rump length 8w2d ASSESSMENT/PLAN: 1. Encounter for supervision of normal in multigravida - ICD9: V22.1, ICD10: Z34.80 (primary diagnosis) 2. 8 weeks gestation of - ICD9: V22.2, ICD10: Z3A.08 3. Multiparity - ICD9: V61.5, ICD10: Z64.1 PLAN: 1) Patient oriented to practice. Patient given new OB orientation folder. Discussed nutrition, folic acid supplementation, dietary guidelines, exercise, smoking, alcohol, caffeine, and drug use. Declines ASA Discussed routine OB labs including STD/HIV. Discussed how to access Your guide to a health and the Store Associate. Reviewed midwifery and top and trim worker services that are available. 2) Screening: Hemoglobin A1C: ordered Baby Aspirin: The patient has been counseled about the potential benefits of low dose aspirin in and our recommendation that this be offered to all patients, regardless of whether they meet the high risk criteria specified above. She Declines Aneuploidy Screening: Discussed aneuploidy screening, nuchal translucency/first trimester early anatomy ultrasound and NIPT. The risks/benefits and limitations of NIPT/aneuploidy screening were reviewed including the potential for false negative and false positive results. The availability of genetic counseling was reviewed. Information on aneuploidy screening was provided. The patient declines screening Myriad Carrier Screening: Discussed myriad carrier screening. We discussed the availability of professional-society guided carrier screening and reviewed the conditions screened and limitations of screening. The availability of genetic counseling was reviewed. Information on carrier screening was provided. The patient Declines 3) Patient offered option of Virtual Visits. Patient prefers in person visits. Follow up in 4 weeks for early anatomy US and NITISH Thakur APRN.CNM documented in this encounter [facility] 07-30-2024 Instructions Erasto Brunson LPN - 07/30/2024 3:46 PM EST Please select the following link to access the [facility] Your Guide to a Healthy . [email or web address] Please select the following link to access the [facility] Your Guide to a Healthy . [email or web address] documented in this encounter [facility] 07-29-2024 Telephone encounter Note Last visit- 10/25/23 Last refill- 11/22/23 [facility] 07-29-2024 Miscellaneous Notes Last visit- 10/25/23 Last refill- 11/22/23 documented in this encounter [facility] 10-25-2023 Note Encounter Department : [facility], A SERVICE OF [facility] Progress Notes by Ling Daly APRN-JAKE at 10/25/2023 7:40 AM Author: BRYAN GoService: -Author Type: Nurse Practitioner Filed: 10/25/2023 9:31 AMEncounter Date: 10/25/2023Status: Signed Senior Tax Manager: BRYAN Go (Nurse Practitioner) Yanet Banks Age: 27 y.o. : 1995 Chief Complaint: Chief Complaint Patient presents with -Medication Management Nursing Note: Pt presents today to discuss starting nuvaring HPI: Ivana is a 27-year-old female who presents today for contraception management. She was previously on the NuvaRing for 4 years prior to her last 2 pregnancies. She is still breast-feeding and her youngest is almost 1 years old. She is not able to tolerate the minipill due to vaginal dryness. She is requesting to return back to [facility] as before. She is aware that her milk supply may diminish; however, she is ready to wean her baby and this will not be problematic. Has not begun menses since childbirth. Will be due for Pap later this year. Denies family history of blood clots. She is a non-smoker Review of Systems: Review of Systems Constitutional: Negative for activity change, fatigue, fever and unexpected weight change. HENT: Negative for congestion, dental problem and postnasal drip. Eyes: Negative for photophobia, discharge, itching and visual disturbance. Respiratory: Negative for apnea, chest tightness, shortness of breath and wheezing. Cardiovascular: Negative for chest pain and leg swelling. Gastrointestinal: Negative for abdominal distention, abdominal pain, blood in stool, constipation, diarrhea and nausea. Endocrine: Negative for cold intolerance, heat intolerance, polydipsia, polyphagia and polyuria. Genitourinary: Negative for difficulty urinating, menstrual problem (Still breast-feeding. Has not restarted menses), vaginal bleeding and vaginal discharge. Musculoskeletal: Negative for arthralgias, gait problem, myalgias and neck stiffness. Skin: Negative for color change, pallor and wound. Allergic/Immunologic: Negative for environmental allergies and food allergies. Neurological: Negative for dizziness, tremors, seizures, speech difficulty, weakness and light-headedness. Hematological: Negative for adenopathy. Psychiatric/Behavioral: Negative for agitation, behavioral problems, decreased concentration, dysphoric mood, sleep disturbance and suicidal ideas. The patient is not hyperactive. Problem List: Patient Active Problem List Diagnosis -Seasonal allergies Medication List: Current Outpatient Medications Ordered in [facility] MedicationSigDispenseRefill -etonogestreL-ethinyl estradioL (NUVARING) 0.12-0.015 mg/24 hr vaginal ringInsert vaginally and leave in place for 3 consecutive weeks, then remove for 1 week.1 each0 No current [facility]-ordered facility-administered medications on file. Allergies: Allergies AllergenReactions -AzithromycinHives and Diarrhea -Pertussis VaccinesHives Visit Vitals BP120/78 (Ortho BP Site: Left Upper Arm, Ortho BP Position: Sitting, Ortho BP Cuff Size: Regular Adult) Pulse(!) 56 Temp97.8 ?F (36.6 ?C) Resp16 Wt114 lb 8 oz (51.9 kg) [id number]% BMI21.63 kg/m? Physical Exam: Physical Exam Vitals and nursing note reviewed. Constitutional: General: She is not in acute distress. Appearance: Normal appearance. She is well-developed. She is not ill-appearing. HENT: Head: Normocephalic. Eyes: Conjunctiva/sclera: Conjunctivae normal. Pupils: Pupils are equal, round, and reactive to light. Neck: Thyroid: No thyromegaly. Trachea: No tracheal deviation. Cardiovascular: Rate and Rhythm: Regular rhythm. Bradycardia present. Pulses: Normal pulses. Heart sounds: Normal heart sounds. No murmur heard. Pulmonary: Effort: Pulmonary effort is normal. No respiratory distress. Breath sounds: Normal breath sounds. No wheezing. Chest: Chest wall: No tenderness. Abdominal: General: Bowel sounds are normal. There is no distension. Palpations: Abdomen is soft. Tenderness: There is no abdominal tenderness. There is no guarding. Musculoskeletal: General: No tenderness or deformity. Normal range of motion. Cervical back: Normal range of motion and neck supple. Lymphadenopathy: Cervical: No cervical adenopathy. Skin: General: Skin is warm and dry. Capillary Refill: Capillary refill takes less than 2 seconds. Neurological: General: No focal deficit present. Mental Status: She is alert and oriented to person, place, and time. Mental status is at baseline. Cranial Nerves: No cranial nerve deficit. Coordination: Coordination normal. Deep Tendon Reflexes: Reflexes normal. Psychiatric: Mood and Affect: Mood normal. Behavior: Behavior normal. Thought Content: Thought content normal. Judgment: Judgment normal. Assessment and Pl (more content not included)... [facility] 07-27-2023 Note Encounter Department : [facility]IMARY [facility], A SERVICE OF [facility] Progress Notes by Maryann Mathias MD at 07/27/2023 10:20 AM Author: MENDOZA Lezamaervice: -Author Type: Physician Filed: 07/27/2023 12:42 PMEncounter Date: 07/27/2023Status: Signed Senior Tax Manager: Maryann Mathias MD (Physician) Yanet Banks Age: 27 y.o. : 1995 Chief Complaint: Chief Complaint Patient presents with -Sore Throat -Sinus Problem Nursing Note: Pt sts sinus issue and sore throat since the Monday before lorri . Pt sts she thinks she may have mastitis in right breast . HPI: HPI Pt ill for about 3 weeks She is having a ST at night and AM but during the day it is okay She did have sinus pressure for a while but it is better She did have RSV in June as well She also complains of right breast pain. She is nursing her baby who is 8 months old. Recently he stopped nursing in the night and started eating more regular foods. She has not noticed any redness or warmth. She has been trying to massage and it does not seem to be helping Review of Systems: Review of Systems Constitutional: Negative. HENT: Positive for sore throat. Negative for congestion, ear pain and rhinorrhea. Respiratory: Negative for cough and chest tightness. Cardiovascular: Negative for chest pain and leg swelling. Gastrointestinal: Negative for abdominal pain, diarrhea, nausea and vomiting. Genitourinary: Negative for dysuria and hematuria. Musculoskeletal: Negative for arthralgias, back pain, joint swelling and myalgias. Skin: Negative for rash. Neurological: Negative for weakness and headaches. Problem List: Patient Active Problem List Diagnosis -Seasonal allergies Medication List: Current Outpatient Medications Ordered in [facility] MedicationSigDispenseRefill -cephALEXin (KEFLEX) 500 mg capsuleTake 1 capsule (500 mg total) by mouth in the morning and 1 capsule (500 mg total) at noon and 1 capsule (500 mg total) in the evening. Do all this for 7 days.21 capsule0 -norethindrone (KRIS) 0.35 mg tabletTake 1 tablet (0.35 mg total) by mouth daily.28 [id number] No current [facility]-ordered facility-administered medications on file. Allergies: Allergies AllergenReactions -AzithromycinHives and Diarrhea -Pertussis VaccinesHives Visit Vitals BP106/71 Pulse78 Wt116 lb 1.6 oz (52.7 kg) CdD937% BMI21.94 kg/m? Physical Exam: Physical Exam Vitals and nursing note reviewed. Constitutional: Appearance: She is well-developed. She is not ill-appearing. HENT: Head: Normocephalic. Right Ear: Tympanic membrane and ear canal normal. Left Ear: Tympanic membrane and ear canal normal. Mouth/Throat: Mouth: Mucous membranes are moist. Pharynx: No pharyngeal swelling or posterior oropharyngeal erythema. Eyes: Conjunctiva/sclera: Conjunctivae normal. Cardiovascular: Rate and Rhythm: Normal rate and regular rhythm. Heart sounds: Normal heart sounds. Pulmonary: Effort: Pulmonary effort is normal. Breath sounds: Normal breath sounds. Chest: Comments: Hard, tender lumps w/o warmth/erythema Musculoskeletal: General: Normal range of motion. Cervical back: Normal range of motion. Skin: General: Skin is warm and dry. Neurological: General: No focal deficit present. Mental Status: She is alert and oriented to person, place, and time. Psychiatric: Mood and Affect: Mood normal. Behavior: Behavior normal. Thought Content: Thought content normal. Judgment: Judgment normal. Assessment and Plan: Diagnoses and all orders for this visit: Pharyngitis, unspecified etiology (Primary) Comments: Likely viral. Continue [id number] symptomatic treatment Orders: - POCT Rapid Strep Test Mastalgia Comments: Likely clogged milk duct. Continue massage. Warm moist heat. Antibiotics only if she notices redness or warmth Other orders - cephALEXin (KEFLEX) 500 mg capsule Dispense: 21 capsule; Refill: 0 Electronically Signed by: Maryann Mathias MD, 07/27/2023 12:42 PM [facility] 01-16-2023 Note Encounter Department : [facility], A SERVICE OF [facility] Progress Notes by LingBRYAN Espinoza at 01/16/2023 9:20 AM Author: BRYAN GoService: -Author Type: Nurse Practitioner Filed: 01/16/2023 2:34 PMEncounter Date: 01/16/2023Status: Signed Senior Tax Manager: BRYAN Go (Nurse Practitioner) Yanet Banks Age: 27 y.o. : 1995 Chief Complaint: Chief Complaint Patient presents with -Contraception Nursing Note: Pt presents today to discuss control HPI: Ivana is a 27-year-old female who presents today for contraception. on November 17. G2, P2. Currently breast-feeding. She has been using barrier method for contraception and is requesting additional medication. OB provider Dr. Saucedo. Had follow-up phone call. Denies lochia. States has good energy. Contraception: Previously used minipill and requesting to restart this with breast-feeding. Tolerated well. Urine test today negative Review of Systems: Review of Systems Constitutional: Negative for activity change, fatigue, fever and unexpected weight change. HENT: Negative for congestion, dental problem and postnasal drip. Eyes: Negative for photophobia, discharge, itching and visual disturbance. Respiratory: Negative for apnea, chest tightness, shortness of breath and wheezing. Cardiovascular: Negative for chest pain and leg swelling. Gastrointestinal: Negative for abdominal distention, abdominal pain, blood in stool, constipation, diarrhea and nausea. Endocrine: Negative for cold intolerance, heat intolerance, polydipsia, polyphagia and polyuria. Genitourinary: Negative for difficulty urinating. Musculoskeletal: Negative for arthralgias, gait problem, myalgias and neck stiffness. Skin: Negative for color change, pallor and wound. Allergic/Immunologic: Negative for environmental allergies and food allergies. Neurological: Negative for dizziness, tremors, seizures, speech difficulty, weakness and light-headedness. Hematological: Negative for adenopathy. Psychiatric/Behavioral: Negative for agitation, behavioral problems, decreased concentration, dysphoric mood, sleep disturbance and suicidal ideas. The patient is not hyperactive. Problem List: Patient Active Problem List Diagnosis -Seasonal allergies Medication List: Current Outpatient Medications Ordered in [facility] MedicationSigDispenseRefill -norethindrone (KRIS) 0.35 mg tabletTake 1 tablet (0.35 mg total) by mouth daily.28 [id number] No current [facility]-ordered facility-administered medications on file. Allergies: Allergies AllergenReactions -AzithromycinHives and Diarrhea -Pertussis VaccinesHives Visit Vitals BP108/70 (Ortho BP Site: Left Upper Arm, Ortho BP Position: Sitting, Ortho BP Cuff Size: Adult) Pulse68 Temp97.4 ?F (36.3 ?C) Resp16 Wt120 lb 4.8 oz (54.6 kg) CqB172% BMI22.73 kg/m? Physical Exam: Physical Exam Vitals and nursing note reviewed. Constitutional: General: She is not in acute distress. Appearance: Normal appearance. She is well-developed. She is not ill-appearing. HENT: Head: Normocephalic. Eyes: Pupils: Pupils are equal, round, and reactive to light. Neck: Thyroid: No thyromegaly. Trachea: No tracheal deviation. Cardiovascular: Rate and Rhythm: Normal rate and regular rhythm. Pulses: Normal pulses. Heart sounds: Normal heart sounds. No murmur heard. Pulmonary: Effort: Pulmonary effort is normal. No respiratory distress. Breath sounds: Normal breath sounds. No wheezing. Chest: Chest wall: No tenderness. Abdominal: General: Bowel sounds are normal. There is no distension. Palpations: Abdomen is soft. Tenderness: There is no abdominal tenderness. There is no guarding. Musculoskeletal: General: No tenderness or deformity. Normal range of motion. Cervical back: Normal range of motion and neck supple. Lymphadenopathy: Cervical: No cervical adenopathy. Skin: General: Skin is warm and dry. Capillary Refill: Capillary refill takes less than 2 seconds. Neurological: General: No focal deficit present. Mental Status: She is alert and oriented to person, place, and time. Cranial Nerves: No cranial nerve deficit. Coordination: Coordination normal. Deep Tendon Reflexes: Reflexes normal. Psychiatric: Mood and Affect: Mood normal. Behavior: Behavior normal. Thought Content: Thought content normal. Judgment: Judgment normal. Assessment and Plan: Diagnoses and all orders for this visit: Wellness examination (Primary) Comments: Here today for wellness exam. Doing well overall. See concerns under other assessment Encounter for initial prescription of contraceptive pills Comments: We will begin above. Urine test negative Orders: - norethindrone (KRIS) 0.35 mg tablet Dispense: 28 tablet; Refill: 12 - POCT urine The current medical regimen is e (more content not included)... [facility] 11-19-2022 Note 11/19/22 1100 History Consult Follow-up;Discharge teaching Pt states baby well and with good frequency. Reports latch is improving. Discharge teaching reviewed/complete. Card given. No questions at this time. [facility] 11-19-2022 Note @HOSPITAL SUMMARY AT DISCHARGE OBSTETRICS 11/19/2022 Patient Name: Yanet Banks : 1995 REASON FOR ADMISSIONS: Onset of labor PROCEDURES (): Ultrasound PROCEDURES (Intrapartum): Spontaneous vaginal delivery f2ME@ SPROCEDURES (): N/A COMPLICATIONS (Operative and ): N/A DIAGNOSIS AT DISCHARGE: Term , delivered DISCHARGE INFORMATION: Restrictions on Activity:as directed Restrictions on Diet: none Instructions (routine):as directed Discharge to: Home Follow up on: 4 to 6 weeks INFORMATION: Sex: male Circumcised: yes Home with Mother: yes Complications: none Weight: 3375 g (7 lb 7.1 oz) ADDITIONAL DIAGNOSES / COMMENTS: none [facility] 11-19-2022 Note Problem: Constipatio n Goal: Active bowel sounds Outcome: Progressing Problem: Infection Risk, Puerperal Goal: Absence of infection signs and symptoms Outcome: Progressing Problem: Discharge Planning Goal: Knowledge of discharge instructions Outcome: Progressing Problem: Fluid Volume Imbalance, Risk of Goal: Absence of hemorrhage signs and symptoms Outcome: Progressing Problem: Pain - Acute Goal: Reduced pain sensation Outcome: Progressing Problem: Coping - Ineffective, Family Goal: Effective coping Outcome: Progressing Problem: Maternal Infant Feeding - Ineffective, Risk of Goal: Parent-infant attachment Outcome: Progressing Goal: Effective breast-feeding Outcome: Progressing [facility] 11-18-2022 Note Problem: Maternal In jacques Feeding - Ineffective, Risk of Goal: Parent- attachment Outcome: Progressing Goal: Effective breast-feeding Outcome: Progressing [facility] 11-18-2022 Note ICM Progress Note Chart reviewed. ICM available as needed. DC plan: Home Estimated DC Date: November 19, 2022 Electronically signed by: Estefany Joseph RN, OB [employer], Phone [phone]. Weekday Office Hours: 7:30-4:00. Holiday/Weekends [phone]. For urgent needs between 5p-7p, please call [phone]. If after 7pm, please call [facility] at [phone]. [facility] 11-18-2022 Note Problem: Constipatio n Goal: Active bowel sounds Outcome: Progressing Problem: Infection Risk, Puerperal Goal: Absence of infection signs and symptoms Outcome: Progressing Problem: Discharge Planning Goal: Knowledge of discharge instructions Outcome: Progressing Problem: Fluid Volume Imbalance, Risk of Goal: Absence of hemorrhage signs and symptoms Outcome: Progressing Problem: Pain - Acute Goal: Reduced pain sensation Outcome: Progressing Problem: Coping - Ineffective, Family Goal: Effective coping Outcome: Progressing Problem: Maternal Feeding - Ineffective, Risk of Goal: Parent- attachment Outcome: Progressing Goal: Effective breast-feeding Outcome: Progressing [facility] 11-18-2022 Note Problem: Constipatio n Goal: Active bowel sounds Outcome: Progressing Problem: Infection Risk, Puerperal Goal: Absence of infection signs and symptoms Outcome: Progressing Problem: Discharge Planning Goal: Knowledge of discharge instructions Outcome: Progressing Problem: Fluid Volume Imbalance, Risk of Goal: Absence of hemorrhage signs and symptoms Outcome: Progressing Problem: Pain - Acute Goal: Reduced pain sensation Outcome: Progressing Problem: Coping - Ineffective, Family Goal: Effective coping Outcome: Progressing Problem: Maternal Feeding - Ineffective, Risk of Goal: Parent- attachment Outcome: Progressing Goal: Effective breast-feeding Outcome: Progressing [facility] 09-12-2022 Note Patient presents for care. active. No concerns today. Planning FBBC. S=D GFM RTO 2 week Education: PTL and FMA precautions Provider Locations 06-30-2022 Note Patient presents for care. active. No concerns today. Just came [place]. It's another boy! S=D GFM GTT/ H RTO 4 week Education: PTL and FMA precautions Provider Locations 04-23-2022 Physician Emergency department Note ED Course & Medical Decision Making: Pertinent Labs & Imaging studies reviewed. (See chart for details) Yanet Bnaks is a 26 year old female who presents complaining of symptoms of nausea, vomiting, and diarrhea. Onset of symptoms this morning, multiple episodes of nonbloody nonbilious diarrhea and emesis for the last several hours including developing a temperature 101 degrees just prior to arrival. Symptoms associate with body aches and low back pain and headache. She is currently 9 weeks , is G2, P1. No known ill contacts, no recent travel, no concerns for food exposures. Notes no aggravating or relieving factors. She denies any urinary symptoms, gush of fluids or bleeding. Physical exam reveals her to be mildly tachycardic with slightly dry mucous membranes but soft abdomen without guarding or rebound, normal bowel sounds throughout. We will administer some intravenous fluids and check basic labs on her. Presently she declines any offered nausea medications. I did do a quick bedside ultrasound which does reveal intrauterine and visible heart activity. Symptomatic improvement with administered fluids. She declined nausea medicine but is able to keep orals down without any difficulty. Laboratory evaluation unremarkable. Usual and customary undifferentiated nausea vomiting diarrhea discussion which I suspect is most likely viral gastroenteritis at this time. Careful return precautions reviewed. Final Impression: 1. Nausea vomiting and diarrhea I have personally seen and examined this patient. I have fully participated in the care of this patient and I have reviewed and agree with all pertinent clinical information including history, physical exam, and plan. I have also reviewed and agree with the medications, allergies and past medical history section for this patient. Electronically signed by: Joslyn Panda MD, 04/23/2022 3:28 PM === === Triage Chief Complaint: Chief Complaint Patient presents with Vomiting History of Present Illness: Yanet Banks is a 26 year old female who presents complaining of symptoms of nausea, vomiting, and diarrhea. Onset of symptoms this morning, multiple episodes of nonbloody nonbilious diarrhea and emesis for the last several hours including developing a temperature 101 degrees just prior to arrival. Symptoms associate with body aches and low back pain and headache. She is currently 9 weeks , is G2, P1. No known ill contacts, no recent travel, no concerns for food exposures. Notes no aggravating or relieving factors. She denies any urinary symptoms, gush of fluids or bleeding. Active Problem List: There is no problem list on file for this patient. Review of Systems: Constitutional: Denies fever, chills, weight loss, or weakness Eyes: Denies photophobia or discharge ENT: Denies dysphagia, tongue swelling, hoarse voice CV: Denies chest pain, palpitations or swelling RESP: Denies rib trauma, chest wall tenderness GI: As above : No urinary frequency or dysuria MS: Denies back pain Skin: No rash Neuro: No headache, focal weakness or sensory changes Lymph: Denies swollen glands Endocrine: Denies polyuria or polydipsia Allergic: No reactions or sensitivities Psych: Denies depression, suicide ideation or homicidal ideation Past Medical History: History reviewed. No pertinent past medical history. Current Medications: No current facility-administered medications for this encounter. Current Outpatient Medications: ondansetron (ZOFRAN ODT) 4 mg RAPID DISSOLVING tablet, Take 1 Tab by mouth every 6 hours as needed, Disp: 12 Tab, Rfl: 0 vit no.124/iron/folic ( VITAMIN ORAL), Take by mouth, Disp: , Rfl: Surgical History: History reviewed. No pertinent surgical history. Family History: Non-contributory Social History: Lives at home. Allergies: Pertussis vaccines and Zithromax [azithromycin] Physical Exam: VITAL SIGNS: The Initial Triage assessment is as follows: ED Vitals Temp: 98.6 F (37 C) (04/23/22 1416) Temp Source: Oral (04/23/22 1416) Pulse: 117 (04/23/22 1416) Resp: 18 (04/23/22 1416) BP: 129/82 (04/23/22 1416) MAP: Noninvasive: 99 mmHg (04/23/22 1416) SpO2: 97 % (04/23/22 1416) Oxygen Source: Rm Air (04/23/22 1416) Vitals during ED course were reviewed and are as charted. Constitutional: No acute distress, Non-toxic appearance but appears mildly ill HENT: Normocephalic, Atraumatic, Bilateral external ears normal, Oropharynx moist, No oral exudates, Nose normal. Eyes: PERRL, EOMI, Conjunctiva normal, No discharge. Neck: Normal range of motion, No tenderness, Supple, No lymphadenopathy, No stridor. Cardiovascular: Mildly tachycardic, Normal rhythm, No murmurs, No rubs, No gallops. Pulmonary/Chest: Normal breath sounds, No respiratory distress, No wheezing, No chest tenderness Abdomen: Bowel sounds normal, Soft, No tnderness, No masses, No pulsatile masses Back: No direct bony tenderness, No CVA tenderness Extremities: Normal range of motion, Intact distal pulses, No edema, No tenderness Lymphatic: No visible lymphadenopathy noted Neurologic: Alert & oriented x 3, Normal motor function, Normal sensory function, No focal deficits Skin: Warm, Dry, No erythema, No rash Psychiatric: Affect normal, Judgement normal, Mood normal ED Labs: Labs Reviewed BASIC METABOLIC PANEL - Abnormal; Notable for the following components: Result Value Glucose 112 (*) All other components within normal limits COMPLETE BLOOD COUNT WITH DIFFERENTIAL - Abnormal; Notable for the following components: % Neutrophils 91.5 (*) % Lymphocytes 4.5 (*) % Monocytes 3.6 (*) Absolute Neutrophils 9.7 (*) Absolute Lymphocyte 0.5 (*) All other components within normal limits LIPASE - Normal HEPATIC FUNCTION PANEL [facility] 04-23-2022 Emergency department Note ED Course & Medical Decision Making: Pertinent Labs & Imaging studies reviewed. (See chart for details) Yanet Banks is a 26 year old female who presents complaining of symptoms of nausea, vomiting, and diarrhea. Onset of symptoms this morning, multiple episodes of nonbloody nonbilious diarrhea and emesis for the last several hours including developing a temperature 101 degrees just prior to arrival. Symptoms associate with body aches and low back pain and headache. She is currently 9 weeks , is G2, P1. No known ill contacts, no recent travel, no concerns for food exposures. Notes no aggravating or relieving factors. She denies any urinary symptoms, gush of fluids or bleeding. Physical exam reveals her to be mildly tachycardic with slightly dry mucous membranes but soft abdomen without guarding or rebound, normal bowel sounds throughout. We will administer some intravenous fluids and check basic labs on her. Presently she declines any offered nausea medications. I did do a quick bedside ultrasound which does reveal intrauterine and visible heart activity. Symptomatic improvement with administered fluids. She declined nausea medicine but is able to keep orals down without any difficulty. Laboratory evaluation unremarkable. Usual and customary undifferentiated nausea vomiting diarrhea discussion which I suspect is most likely viral gastroenteritis at this time. Careful return precautions reviewed. Final Impression: 1. Nausea vomiting and diarrhea I have personally seen and examined this patient. I have fully participated in the care of this patient and I have reviewed and agree with all pertinent clinical information including history, physical exam, and plan. I have also reviewed and agree with the medications, allergies and past medical history section for this patient. Electronically signed by: Joslyn Panda MD, 04/23/2022 3:28 PM === === Triage Chief Complaint: Chief Complaint Patient presents with Vomiting History of Present Illness: Yanet Banks is a 26 year old female who presents complaining of symptoms of nausea, vomiting, and diarrhea. Onset of symptoms this morning, multiple episodes of nonbloody nonbilious diarrhea and emesis for the last several hours including developing a temperature 101 degrees just prior to arrival. Symptoms associate with body aches and low back pain and headache. She is currently 9 weeks , is G2, P1. No known ill contacts, no recent travel, no concerns for food exposures. Notes no aggravating or relieving factors. She denies any urinary symptoms, gush of fluids or bleeding. Active Problem List: There is no problem list on file for this patient. Review of Systems: Constitutional: Denies fever, chills, weight loss, or weakness Eyes: Denies photophobia or discharge ENT: Denies dysphagia, tongue swelling, hoarse voice CV: Denies chest pain, palpitations or swelling RESP: Denies rib trauma, chest wall tenderness GI: As above : No urinary frequency or dysuria MS: Denies back pain Skin: No rash Neuro: No headache, focal weakness or sensory changes Lymph: Denies swollen glands Endocrine: Denies polyuria or polydipsia Allergic: No reactions or sensitivities Psych: Denies depression, suicide ideation or homicidal ideation Past Medical History: History reviewed. No pertinent past medical history. Current Medications: No current facility-administered medications for this encounter. Current Outpatient Medications: ondansetron (ZOFRAN ODT) 4 mg RAPID DISSOLVING tablet, Take 1 Tab by mouth every 6 hours as needed, Disp: 12 Tab, Rfl: 0 vit no.124/iron/folic ( VITAMIN ORAL), Take by mouth, Disp: , Rfl: Surgical History: History reviewed. No pertinent surgical history. Family History: Non-contributory Social History: Lives at home. Allergies: Pertussis vaccines and Zithromax [azithromycin] Physical Exam: VITAL SIGNS: The Initial Triage assessment is as follows: ED Vitals Temp: 98.6 F (37 C) (04/23/22 1416) Temp Source: Oral (04/23/22 1416) Pulse: 117 (04/23/22 1416) Resp: 18 (04/23/22 1416) BP: 129/82 (04/23/22 1416) MAP: Noninvasive: 99 mmHg (04/23/22 1416) SpO2: 97 % (04/23/22 1416) Oxygen Source: Rm Air (04/23/22 1416) Vitals during ED course were reviewed and are as charted. Constitutional: No acute distress, Non-toxic appearance but appears mildly ill HENT: Normocephalic, Atraumatic, Bilateral external ears normal, Oropharynx moist, No oral exudates, Nose normal. Eyes: PERRL, EOMI, Conjunctiva normal, No discharge. Neck: Normal range of motion, No tenderness, Supple, No lymphadenopathy, No stridor. Cardiovascular: Mildly tachycardic, Normal rhythm, No murmurs, No rubs, No gallops. Pulmonary/Chest: Normal breath sounds, No respiratory distress, No wheezing, No chest tenderness Abdomen: Bowel sounds normal, Soft, No tnderness, No masses, No pulsatile masses Back: No direct bony tenderness, No CVA tenderness Extremities: Normal range of motion, Intact distal pulses, No edema, No tenderness Lymphatic: No visible lymphadenopathy noted Neurologic: Alert & oriented x 3, Normal motor function, Normal sensory function, No focal deficits Skin: Warm, Dry, No erythema, No rash Psychiatric: Affect normal, Judgement normal, Mood normal ED Labs: Labs Reviewed BASIC METABOLIC PANEL - Abnormal; Notable for the following components: Result Value Glucose 112 (*) All other components within normal limits COMPLETE BLOOD COUNT WITH DIFFERENTIAL - Abnormal; Notable for the following components: % Neutrophils 91.5 (*) % Lymphocytes 4.5 (*) % Monocytes 3.6 (*) Absolute Neutrophils 9.7 (*) Absolute Lymphocyte 0.5 (*) All other components within normal limits LIPASE - Normal HEPATIC FUNCTION PANEL Arrived with reports of having diarrhea/vomiting and fever - since this am - pt states that she began feeling bad after eating dinner last night- pt states that she is 9 weeks - denies any vaginal bleeding Temp 101 per pt report - a/o x3 skin w/d speech clear documented in this encounter [facility] 04-23-2022 Emergency department Note Arrived with reports of having diarrhea/vomiting and fever - since this am - pt states that she began feeling bad after eating dinner last night- pt states that she is 9 weeks - denies any vaginal bleeding Temp 101 per pt report - a/o x3 skin w/d speech clear [facility] Evaluation note Diagnosis Nausea vomiting and diarrhea- Primary Nausea with vomiting [facility] Diagnosis Encounter for initial prescription of vaginal ring hormonal contraceptive documented in this encounter [facility] note* Diagnosis Encounter for supervision of normal in multigravida- Primary 8 weeks gestation of state, incidental Multiparity [facility] 12 weeks gestation of - Primary state, incidental Encounter for supervision of other normal in second trimester Multiparity [facility] Diagnosis Encounter for screening for malformation using ultrasound- Primary 12 weeks gestation of state, incidental Encounter for (NT) nuchal translucency scan Other specified screening [facility] Diagnosis Encounter for supervision of other normal in second trimester- Primary 16 weeks gestation of state, incidental [facility] Diagnosis 20 weeks gestation of (HCC)- Primary state, incidental Encounter for supervision of other normal in second trimester (HCC) [facility] Diagnosis Encounter for anatomic survey (HCC)- Primary Encounter for anatomic survey 20 weeks gestation of (HCC) state, incidental [facility] Diagnosis Encounter for supervision of other normal in second trimester (HCC)- Primary 24 weeks gestation of (HCC) state, incidental Screening for diabetes mellitus [facility] Diagnosis Encounter for supervision of other normal in third trimester (HCC)- Primary 28 weeks gestation of (HCC) state, incidental [facility] Diagnosis Encounter for supervision of normal in multigravida (HCC)- Primary 30 weeks gestation of (HCC) state, incidental [facility] Diagnosis Encounter for supervision of other normal in third trimester (HCC)- Primary 32 weeks gestation of (HCC) state, incidental [facility] Diagnosis Encounter for supervision of other normal in third trimester (HCC)- Primary 34 weeks gestation of (HCC) state, incidental [facility] Diagnosis Encounter for supervision of other normal in third trimester (HCC)- Primary 36 weeks gestation of (HCC) state, incidental [facility] Diagnosis Encounter for supervision of other normal in third trimester (HCC)- Primary 38 weeks gestation of (HCC) state, incidental [facility] Diagnosis 39 weeks gestation of (HCC)- Primary state, incidental Encounter for supervision of other normal in third trimester (HCC) [facility] Diagnosis 39 weeks gestation of (HCC)- Primary state, incidental Encounter for supervision of other normal in third trimester (HCC) [facility] Diagnosis Encounter for supervision of other normal in third trimester (HCC)- Primary 40 weeks gestation of (HCC) state, incidental Multiparity [facility] Attachments The following attachments cannot be sent through Care Everywhere. * Nausea and Vomiting (Guamanian) * Diarrhea (Guamanian) * Ondansetron, ADULT ([place]) [facility] ([facility] Diagnostic Procedure Only (Routine) - Authorized Specialty Diagnoses / Procedures Referred By Contac t Referred To Contact [facility] Diagnoses Encounter for supervision of normal in multigravida 8 weeks gestation of Procedures OBSTETRIC ULTRASOUND WHI US PREG UTERUS AFTER 1ST TRIMEST GESTATION Annie Thakur APRN.CNM [address] [place] [address] [address] Referral ID Status Reason Start Date Expiration Date Visits Requested Visits Authorized [id number] Authorized Auto-Generat ed Referral 07/31/2024 07/31/2025 1 1 * Diagnostic Procedure Only (Routine) - Authorized Specialty Diagnoses / Procedures Referred By Contac t Referred To Contact [facility] Diagnoses Encounter for supervision of normal in multigravida 8 weeks gestation of Procedures OBSTETRIC ULTRASOUND WHI US PREG UTERUS AFTER 1ST TRIMEST Annie Thakur APRN.CNM [address] [place] [address] [facility] [employer] [place] [address] Referral ID Status Reason Start Date Expiration Date Visits Requested Visits Authorized [id number] Authorized Auto-Generat ed Referral 07/31/2024 07/31/2025 1 1 [facility] Summary Purpose Family History No Family History Records FoundNo Family History Records FoundNo Family History Records FoundNo Family History Records FoundNo Family History Records Found Advance Directives Date Activated Date Inactivated Comments 12/30/2020 3:55 AM 12/31/2020 11:00 PM For an orde r other than full code, level of care order must be completed and signed and level of care order set initiated. Additional Source Comments INFORMATION SOURCE (unrecogn ized section and content) DATE CREATED AUTHOR 01/09/2018 [facility] DATE CREATED AUTHOR AUTHOR'S ORGANIZ ATION 11/28/2022 [facility] DATE CREATED AUTHOR AUTHOR'S ORGANIZ ATION 04/09/2023 Provider Loc[facility] DATE CREATED AUTHOR AUTHOR'S ORGANIZ ATION 10/26/2023 [facility] DATE CREATED AUTHOR AUTHOR'S ORGANIZ ATION 03/12/2025 [facility] Reason for Visit (unrecogniz ed section and content) Reason Comments Vomiting Reason Comments Medication Refill Reason Comments Initial OB Visit Reason Comments PRAF Reason Onset Date Comments Care 08/28/2024 Reason Comments US Specialty Diagnoses / Procedures Referred By Kristen t Referred To Contact [facility] Diagnoses Encounter for supervision of normal in multigravida 8 weeks gestation of Procedures OBSTETRIC ULTRASOUND WHI US PREG UTERUS AFTER 1ST TRIMEST GESTATION Annie Thakur APRN.CNM [address] [place] [address] Phone: tel: fax: [address] [address] Referral ID Status Reason Start Date Expiration Date V isits Requested Visits Authorized [id number] Closed Auto-Generate d Referral 07/31/2024 07/31/2025 1 1 Reason Onset Date Comments Care 09/24/2024 Reason Onset Date Comments Care 10/23/2024 Specialty Diagnoses / Procedures Referred By Kristen alston Referred To Contact [facility] Diagnoses Encounter for supervision of normal in multigravida (HCC) 8 weeks gestation of (HCC) Procedures OBSTETRIC ULTRASOUND WHI US PREG UTERUS AFTER 1ST TRIMEST 1/1ST GESTATION Annie Thakur APRN.[facility] [address] [place] [address] Phone: tel: fax: [facility] [place] [address] [place] [address] Referral ID Status Reason Start Date Expiration Date V isits Requested Visits Authorized [id number] Closed Auto-Generate d Referral 07/31/2024 07/31/2025 1 1 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 Reason Onset Date Comments Care 11/19/2024 Reason Onset Date Comments Care 12/17/2024 Reason Onset Date Comments Care 12/31/2024 Reason Onset Date Comments Care 01/14/2025 Reason Onset Date Comments Care 01/28/2025 Reason Comments Question (OB Question) Reason Onset Date Comments Care 02/11/2025 Reason Onset Date Comments Care 02/25/2025 Reason Onset Date Comments Population Health Navigation Outreach 02/25/2025 Ob/peds Reason Onset Date Comments Care 03/05/2025 Reason Onset Date Comments Care 03/07/2025 Reason Onset Date Comments Care 03/11/2025 Reason Comments OB Contractions Scheduled Active and Recently Administ ered Medications (unrecognized section and content) Medication Order 04/21/2022 04/22/2022 04/23/2022 NaCl 0.9% 1,000 mL (COMPLETED) 1,000 mL, Intravenous, ONCE, 1 dose, On 04/23/22 at 1435, at 999 mL/hr 1440 (New Bag - Prov ider: Krysten Hernandez RN)1511 (Stopped - Provider: Krysten Hernandez RN) ondansetron (ZOFRAN ODT) RAPID DISSOLVING tablet 4 mg (COMPLETED) 4 mg, Oral, NOW, 1 dose, On 04/23/22 at 1540 1533 (Given - Provid er: Krysten Hernandez RN) Care Teams (unrecognized sec tion and content) Rac Specialist Relationship Specialty Start Date End Date Maryann Mathias MD [address] [place] [phone] PCP - General Family Practice 04/23/22 Rac Specialist Relationship Specialty Start Date End Date Maryann Mathias MD [address] [place] [phone] PCP - General Family Medicine 12/03/19 Source Comments (unrecognize d section and content) In the event this informatio n is protected by the Federal Confidentiality of Alcohol and Drug Abuse Patient Records regulations: The Federal rules restrict any use of the information to criminally investigate or prosecute any alcohol or drug abuse patient.[facility] the event this information is protected by the Federal Confidentiality of Alcohol and Drug Abuse Patient Records regulations: The Federal rules restrict any use of the information to criminally investigate or prosecute any alcohol or drug abuse patient.[facility] Hospital[facility] the event this information is protected by the Federal Confidentiality of Alcohol and Drug Abuse Patient Records regulations: The Federal rules restrict any use of the information to criminally investigate or prosecute any alcohol or drug abuse patient.[facility] the event this information is protected by the Federal Confidentiality of Alcohol and Drug Abuse Patient Records regulations: The Federal rules restrict any use of the information to criminally investigate or prosecute any alcohol or drug abuse patient.[facility] Hospital[facility] the event this information is protected by the Federal Confidentiality of Alcohol and Drug Abuse Patient Records regulations: The Federal rules restrict any use of the information to criminally investigate or prosecute any alcohol or drug abuse patient.[facility] Hospital[facility] the event this information is protected by the Federal Confidentiality of Alcohol and Drug Abuse Patient Records regulations: The Federal rules restrict any use of the information to criminally investigate or prosecute any alcohol or drug abuse patient.[facility] Hospital[facility] the event this information is protected by the Federal Confidentiality of Alcohol and Drug Abuse Patient Records regulations: The Federal rules restrict any use of the information to criminally investigate or prosecute any alcohol or drug abuse patient.[facility] Hospital[facility] the event this information is protected by the Federal Confidentiality of Alcohol and Drug Abuse Patient Records regulations: The Federal rules restrict any use of the information to criminally investigate or prosecute any alcohol or drug abuse patient.[facility] Hospital[facility] the event this information is protected by the Federal Confidentiality of Alcohol and Drug Abuse Patient Records regulations: The Federal rules restrict any use of the information to criminally investigate or prosecute any alcohol or drug abuse patient.[facility] Hospital[facility] the event this information is protected by the Federal Confidentiality of Alcohol and Drug Abuse Patient Records regulations: The Federal rules restrict any use of the information to criminally investigate or prosecute any alcohol or drug abuse patient.[facility] Hospital[facility] the event this information is protected by the Federal Confidentiality of Alcohol and Drug Abuse Patient Records regulations: The Federal rules restrict any use of the information to criminally investigate or prosecute any alcohol or drug abuse patient.[facility] Hospital[facility] the event this information is protected by the Federal Confidentiality of Alcohol and Drug Abuse Patient Records regulations: The Federal rules restrict any use of the information to criminally investigate or prosecute any alcohol or drug abuse patient.[facility] Hospital[facility] the event this information is protected by the Federal Confidentiality of Alcohol and Drug Abuse Patient Records regulations: The Federal rules restrict any use of the information to criminally investigate or prosecute any alcohol or drug abuse patient.[facility] Hospital[facility] the event this information is protected by the Federal Confidentiality of Alcohol and Drug Abuse Patient Records regulations: The Federal rules restrict any use of the information to criminally investigate or prosecute any alcohol or drug abuse patient.[facility] Hospital[facility] the event this information is protected by the Federal Confidentiality of Alcohol and Drug Abuse Patient Records regulations: The Federal rules restrict any use of the information to criminally investigate or prosecute any alcohol or drug abuse patient.[facility] Hospital[facility] the event this information is protected by the Federal Confidentiality of Alcohol and Drug Abuse Patient Records regulations: The Federal rules restrict any use of the information to criminally investigate or prosecute any alcohol or drug abuse patient.[facility] HospitalIn the event this information is protected by the Federal Confidentiality of Alcohol and Drug Abuse Patient Records regulations: The Federal rules restrict any use of the information to criminally investigate or prosecute any alcohol or drug abuse patient.[facility] HospitalIn the event this information is protected by the Federal Confidentiality of Alcohol and Drug Abuse Patient Records regulations: The Federal rules restrict any use of the information to criminally investigate or prosecute any alcohol or drug abuse patient.[facility] HospitalIn the event this information is protected by the Federal Confidentiality of Alcohol and Drug Abuse Patient Records regulations: The Federal rules restrict any use of the information to criminally investigate or prosecute any alcohol or drug abuse patient.[facility] HospitalIn the event this information is protected by the Federal Confidentiality of Alcohol and Drug Abuse Patient Records regulations: The Federal rules restrict any use of the information to criminally investigate or prosecute any alcohol or drug abuse patient.[facility] Hospital[facility] the event this information is protected by the Federal Confidentiality of Alcohol and Drug Abuse Patient Records regulations: The Federal rules restrict any use of the information to criminally investigate or prosecute any alcohol or drug abuse patient.[facility] HospitalIn the event this information is protected by the Federal Confidentiality of Alcohol and Drug Abuse Patient Records regulations: The Federal rules restrict any use of the information to criminally investigate or prosecute any alcohol or drug abuse patient.[facility] HospitalIn the event this information is protected by the Federal Confidentiality of Alcohol and Drug Abuse Patient Records regulations: The Federal rules restrict any use of the information to criminally investigate or prosecute any alcohol or drug abuse patient.[facility] HospitalIn the event this information is protected by the [facility] Confidentiality of Alcohol and Drug Abuse Patient Records regulations: The Federal rules restrict any use of the information to criminally investigate or prosecute any alcohol or drug abuse patient.[facility] HospitalIn the event this information is protected by the Federal Confidentiality of Alcohol and Drug Abuse Patient Records regulations: The Federal rules restrict any use of the information to criminally investigate or prosecute any alcohol or drug abuse patient.[facility] FOR RECORDS PERTAINING TO PATIENTS WHO ARE OR HAVE BEEN ENROLLED IN A CHEMICAL DEPENDENCY/SUBSTANCEABUSE PROGRAM, SOME INFORMATION MAY BE OMITTED. This clinical summary was aggregated from multiple sources. Caution should be exercised in using it in the provision of clinical care. This summary normalizes information from multiple sources, and as a consequence, information in this document may materially change the coding, format and clinical context of patient data. In addition, data may be omitted in some cases. CLINICAL DECISIONS SHOULD BE BASED ON THE PRIMARY CLINICAL RECORDS. [facility] [employer] [facility]. provides no warranty or guarantee of the accuracy or completeness of information in this document.
[2025-03-13 01:49] VITALS: BP 108/77; PULSE 80; PULSE 84; RESP 16; TEMP 36.6; O2SAT 96; O2SAT 98
--- NOTE | 2025-03-13 01:52 | OB.TRI.NOTE ---
HPI - General General Date of Admission: 03/13/25 Date of Service: 03/13/25 HPI Narrative CAT BURR, is a 29 F 40.5 who presents for r/o labor. pt reports has been having irregular contractions all day- went to bed and felt they were getting stronger. pt denies LOF, vaginal bleeding, reports good FM. pt reports had membranes swept at office on 03/11- was 2cm/80effaced. PFSH PFSH Social History Smoking Status: Never smoker NST FHR Rate Baby A Baseline: 125 Variability:: Moderate Accelerations:: 15 x 15 Decelerations:: None NST Reactive:: Yes FHR Category:: Category I Uterine Activity:: irregular Assessment & Plan (1) 40 weeks gestation of : (2) Irregular contractions: (3) Labor, prolonged latent phase: PLAN: Plan @ 40.5 weeks c/o contractions 1) early labor reviewed with patient- minimal change in cervical exam since 03/11/25 2) NST and then DC home per patient request - declines intervention 3) labor precautions reviewed
[2025-03-13 01:54] VITALS: PULSE 75; O2SAT 97
[2025-03-13 01:55] VITALS: BP 108/77; PULSE 83
[2025-03-13 01:59] VITALS: BMI 28.7
== END 2025-03-13 02:14 | disposition home or self-care (01) ==
LOC: WPOUT 01:41 → WP 01:42
PROVIDERS: Visit Provider Obstetrics & Gynecology
DX: O63.0 Prolonged first stage (of labor) (principal); Z3A.40 40 weeks gestation of pregnancy
CPT/HCPCS: 59025; 59050; G0378 ×2; 99221

== ENCOUNTER 2025-03-15 21:10 | Inpatient (IN) | payer MEDICAID, SELFPAY ==
[2025-03-15] VITALS (11 sets, daily range): BP systolic 123–160; BP diastolic 88–100; PULSE 71–88; RESP 16; TEMP 37.2–37.3; O2SAT 97–99; BMI 28.8
--- OUTSIDE RECORDS SUMMARY | 2025-03-15 20:54 | XMS RPT_ITS | CCD ---
Author Organization [facility] Care Team Providers Care Medical Review Specialist Name Role Phone Stew ARROYO, Maryann Harrell Primary Care Provider JOSLYN PANDA Attending Unavailable STEW, MARYANN R Primary Care Unavailable ALBERTA NOEL Attending Unavailable ALBERTA NOEL Referring Unavailable STEW, MARYANN R Primary Care Unavailable ELIJAH SAUCEDO Attending Unavailable STEW, MARYANN R Primary Care Unavailable SHARYN WALDRON Admitting Unavai SAMANTHA Thomas Attending Unavailable STEW, MARYANN R Primary Care Unavailable HERNESTO PATHAK Attending Unavailable STEW, MARYANN R Primary Care Unavailable STEW, MARYANN R Primary Care Unavailable MAX LAU Attending Unavailable MAX LAU Attending Unavailable STEW, MARYANN R Primary Care Unavailable STEW, MARYANN R Primary Care Unavailable MAX LAU Attending Unavailable STEW, MARYANN R Primary Care Unavailable ALBERTA NOEL Attending Unavailable DOMONIQUE ONEILL Attending Unavailable STEW, MARYANN R Primary Care Unavailable STEW, MARYANN R Primary Care Unavailable MAX LAU Attending Unavailable STEW, MARYANN R Primary Care Unavailable ALBERTA NOEL Referring Unavailable STEW, MARYANN R Primary Care Unavailable MAX LAU Attending Unavailable STEW, MARYANN R Primary Care Unavailable DOMONIQUE ONEILL Attending Unavailable STEW, MARYANN ADITI Primary Care Unavailable LING DALY Attending Unavaillucas e STEW, MARYANN ADITI Primary Care Unavailable MARYANN MATHIAS Attending Unavailable Ling Daly Attending Unavailable STEW, MARYANN ADITI Primary Care Unavailable Maryann Mathias MD Primary Care Provider Unavailable Primary Care Provider UnavailANNIE Woodard Attending Unavailable ANNIE THAKUR Referring Unavailable PLOTTS, ANNIE Attending Unavailable PLOTTS, ANNIE Referring Unavailable PLOTTS, ANNIE Attending Unavailable MANCINI, KHADRA Attending Unavailable PLOTTS, ANNIE Referring Unavailable PLOTTS, ANNIE Attending Unavailable PLOTTS, ANNIE Referring Unavailable MANCINI, KHADRA Attending Unavailable MANCINI, KHADRA Attending Unavailable PLOTTS, ANNIE Referring Unavailable MANCINI, KHADRA Attending Unavailable MANCINI, KHADRA Attending Unavailable MANCINI, KHADRA Attending Unavailable MANCINI, KHADRA Attending Unavailable ARTHUR CONKLIN Attending Unavailable CHINYERE FRIEND Attending Unavail able MANCINI, KHADRA Attending Unavailable PLOTTS, ANNIE Attending Unavailable Fei ARROYO, Dr. Whitlock Attending [facility] er Care Physician, No Primary Primary Care Provider Unavailable Chinyere Enamorado Attending Unavail able Care Physician, No Primary Primary Care Unava ilable Allergies Allergy Classification Reported Allergen(s) Allergy Type Date of Onset Reaction(s) Facility (20 sources) Azithromycin; Translations: [AZITHROMYCIN] Drug Allergy 0 Hives, Diarrhea, GI Upset [facility] (5 sources) Pertussis Vaccines; Translations: [PERTUSSIS VACCINES] Propensity to adverse reactions [address] [facility] (20 sources) Tetanus Vaccines And Toxoid; Translations: [TETANUS VACCINES AND TOXOID] Propensity to adverse reactions 0 [facility] Medications Current Medications Medication Drug Class(es) Dates Sig (Normalized) Sig (Original) 21 day ethinyl estradiol 0.494331 mg/hr / etonogestrel 0.005 mg/hr vaginal system [...] 07/31/2024 07/31/2024 Discontinued (Discontinued by Patient) levonorgestrel 0.954716 mg/hr intrauterine system (1 source) Progestin, Progestin-containin [...] Problem Classification Problem Date Documented Date Episodic/Chronic Administrative/social admission (20 sources) Multiparous; Translations: [Problems related to multiparity] Onset: 07-31-2024 07-31-2024 Episodic Contraceptive and procreative management (4 sources) Encounter for initial prescription of vaginal ring hormonal contraceptive; Translations: [Encounter for initial prescription of contraceptive pills] Onset: 01-16-2023 07-27-2024 Episodic Early or threatened labor (3 sources) Irregular uterine contractions; Translations: [False labor, unspecified] Onset: 03-13-2025 03-13-2025 Episodic distress and abnormal forces of labor (3 sources) Prolonged latent phase of labor; Translations: [Prolonged first stage (of labor)] Onset: 03-13-2025 03-13-2025 Episodic Other and delivery including normal (20 sources) Encounter for supervision of other normal , unspecified trimester; Translations: [Encounter for full-term uncomplicated delivery] Onset: 05-29-2020 Resolved: 04-19-2021 Episodic Other upper respiratory disease (1 source) Seasonal allergy; Translations: [Other seasonal allergic rhinitis] Onset: 11-19-2021 11-19-2021 Chronic Other upper respiratory disease (1 source) Pain in throat Onset: 07-27-2023 Episodic Other upper respiratory infections (1 source) Acute pharyngitis, unspecified; Translations: [Acute pharyngitis, unspecified] Onset: 07-27-2023 Episodic Prolonged (1 source) Post-term of 40 to 42 weeks; Translations: [Post-term ] 03-14-2025 Episodic Residual codes; unclassified (3 sources) 39 [...] of ] 03-05-2025 Episodic Residual codes; unclassified (7 sources) Gestation period, 40 weeks; Translations: [40 weeks gestation of ] 03-11-2025 Episodic Residual codes; unclassified (2 sources) 40 weeks gestation of ; Translations: [40 [...] of ; Translations: [32 weeks gestation of ([facility])] Onset: 01-14-2025 Episodic Residual codes; unclassified (1 source) 28 weeks gestation of ; Translations: [28 weeks gestation of ([facility])] Onset: 12-17-2024 Episodic Unclassified (2 sources) Abdominal Pain, Fever Onset: 04-23-2022 Unclassified (3 sources) Care; Translations: [ Care] Onset: 09-28-2022 Unclassified (1 source) Medication Management Onset: 10-25-2023 Unclassified (1 source) Sinus Problem Onset: 07-27-2023 Past or Other Problems Problem Classification Problem Date Documented Da te Episodic/Chronic Joint disorders and dislocations; trauma-related (1 source) [...] Onset: 03-19-2019 Resolved: 06-17-2019 06-17-2019 Episodic Other screening for suspected conditions (not [...] Results Test Name Value Interpretation Reference Range Facil ity Examination level ultrasound on 03-14-2025 [facility] Radiology Study observation (narrative) [facility] URINE OB DIP B/Oon Glucose Ql (U) Negative Neg mg/dL [facility] Interpretation and review of laboratory results Normal [facility] Protein.monoclonal (U) [Mass/Vol] trace Neg mg/dL [facility] OB Triage Physician Noteon 0 03-13-2025 OB Triage Physician Note [facility] Medical Records Department [address] [place] [address] OB Triage Physician Note 03/13/25 0152 MR#: [id number] Acct: [id number] Name: YANET BANKS Rep #: [id number] : 1995 29 From: Chinyere Enamorado MD PCP: Care Physician,No Primary Status:REG CLI Y Location: [id number] HPI - General General Date of Admission: 03/13/25 Date of Service: 03/13/25 HPI Narrative YANET BANKS, is a 29 F 40.5 who presents for r/o labor. pt reports has been having irregular contractions all day- went to bed and felt they were getting stronger. pt denies LOF, vaginal bleeding, reports good FM. pt reports had membranes swept at office on 03/11- was 2cm/80effaced. PFSH PFSH Social History Smoking Status: Never smoker NST FHR Rate Baby A Baseline: 125 Variability:: Moderate Accelerations:: 15 x 15 Decelerations:: None NST Reactive:: Yes FHR Category:: Category I Uterine Activity:: irregular Assessment Plan (1) 40 weeks gestation of : (2) Irregular contractions: (3) Labor, prolonged latent phase: PLAN: Plan @ 40.5 weeks c/o contractions 1) early labor reviewed with patient- minimal change in cervical exam since 03/11/25 2) NST and then DC home per patient request - declines intervention 3) labor precautions reviewed 03/13/25 0204 D> Date Chinyere Enamorado MD Cosigner Signature (if applicable): Date CC: Dr Chinyere Enamorado MD; No Primary Care Physician Signed [facility] 03-12-2025 [facility] Telephone (OBGYWM) YANET BANKS ([id number]) 1995 F Date Time Provider Department 03/12/25 CHINYERE FRIEND OBGYWM During your visit today, we recorded the following information about you: Nica Law, RN 03/12/2025 4:07 PM Signed 40w4d Patient called [...] aware that MAGDIEL and CP are not expeditionary fighting vehicle crewman today. CORA notified. Updated HANDP faxed to [...] Status:Closed by NICA LAW on 03/12/25 Normal [facility] URINE OB DIP B/Oon Glucose Ql (U) Negative Neg mg/dL [facility] Interpretation and review of laboratory results Normal [facility] Protein.monoclonal (U) [Mass/Vol] Negative Neg mg/dL [facility] CNPNon 03-07-2025 CNPN Telephone (OBGYWM) YANET BANKS ([id number]) 1995 F Date Time Provider Department 03/07/25 ANNIE THAKUR During your visit today, we recorded the following information about you: Erasto Brunson LPN 03/07/2025 3:28 PM Signed Faxed signed water consent to [facility] 03/07/2025. Erasto Brunson LPN Allergies As [...] Status:Closed by ERASTO BRUNSON on 03/07/25 Normal [facility] URINE OB DIP B/Oon 5 Glucose Ql (U) Negative Neg mg/dL [facility] Interpretation and review of laboratory results Normal [facility] Protein.monoclonal (U) [Mass/Vol] Negative Neg mg/dL [facility] URINE OB DIP B/Oon 5 Glucose Ql (U) Negative Neg mg/dL [facility] Interpretation and review of laboratory results Normal [facility] Protein.monoclonal (U) [Mass/Vol] Negative Neg mg/dL [facility] URINE OB DIP B/Oon 5 Glucose Ql (U) Negative Neg mg/dL [facility] Interpretation and review of laboratory results Normal [facility] Protein.monoclonal (U) [Mass/Vol] Negative Neg mg/dL [facility] ROUTINE, GROUP B ST REPTOCOCCUS BY PCRon 02-11-2025 ROUTINE, GROUP B STREPTOCOCCUS BY PCR Not detected Normal [facility] Comment on above: Performed By: #### L [id number] #### [facility] CLIA [id number] [address] [place] [address] [place] URINE OB DIP B/Oon Glucose Ql (U) Negative Neg mg/dL [facility] Protein.monoclonal (U) [Mass/Vol] Negative Neg mg/dL [facility] CNPNon 01-28-2025 CNPN Telephone (OBGYWM) YANET BANKS ([id number]) 1995 F Date Time Provider Department 01/28/25 ARTHUR CONKLIN OBGYWM During your visit today, we recorded [...] Assessed Reason for Visit: Question (OB Question) [1552] Prescriptions as of 01/29/2025 - PNV no.95/ferrous fum/folic ac ( ORAL) Take 8 tablets by mouth once daily. 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 Problem List As Of Date 01/01/2025 Noted Resolved Oligomenorrhea [N91.5] 12/08/2009 12/31/2024 Dysmenorrhea [N94.6] 12/08/2009 08/28/2024 Encounter for supervision of normal i*07/31/2024 Multiparity [Z64.1] 07/31/2024 Encounter Status:Closed by NICA URIARTE on 01/01/25 Normal [facility] CBC W Auto Differential pane l (Bld)on 12-17-2024 Basophils (Bld) [#/Vol] 10*3/uL Normal <0.11 [facility] Comment on above: Order Comment: Speci men Type: FLUID SPECIMEN Ordering Facility: [facility] Address: [address] [place] [address] Performed By: #### L [id number] #### [facility] CLIA [id number] [address] [place] [address] [place] Basophils/100 WBC (Bld) 0.3 % Normal [facility] Comment on above: Order Comment: Speci men Type: FLUID SPECIMEN Ordering Facility: [facility] Address: [address] [place] [address] Performed By: #### L [id number] #### [facility] CLIA [id number] [address] [place] [address] [place] Differential cell count method Nom (Bld) Auto Normal [facility] Comment on above: Order Comment: Speci men Type: FLUID SPECIMEN Ordering Facility: [facility] Address: [address] [place] [address] Performed By: #### L [id number] #### [facility] CLIA [id number] [address] [place] [address] [place] Eosinophils (Bld) [#/Vol] 0.11 10*3/uL Normal <0.46 [facility] Comment on above: Order Comment: Speci men Type: FLUID SPECIMEN Ordering Facility: [facility] Address: [address] [place] [address] Performed By: #### L [id number] #### [facility] CLIA [id number] [address] [place] [address] [place] Eosinophils/100 WBC (Bld) 1.5 % Normal [facility] Comment on above: Order Comment: Speci men Type: FLUID SPECIMEN Ordering Facility: [facility] Address: [address] [place] [address] Performed By: #### L [id number] #### [facility] CLIA [id number] [address] [place] [address] [place] Erythrocyte distribution width (RBC) [Ratio] 12.7 % Normal 11.5-15.0 [facility] Comment on above: Order Comment: Speci men Type: FLUID SPECIMEN Ordering Facility: [facility] Address: [address] [place] [address] Performed By: #### L [id number] #### [facility] CLIA [id number] [address] [place] [address] [place] Hematocrit (Bld) [Volume fraction] 37.0 % Normal 36.0-46.0 [facility] Comment on above: Order Comment: Speci men Type: FLUID SPECIMEN Ordering Facility: [facility] Address: [address] [place] [address] Performed By: #### L [id number] #### [facility] CLIA [id number] [address] [place] [address] [place] Hemoglobin (Bld) [Mass/Vol] 13.2 g/dL Normal 11.5-15.5 [facility] Comment on above: Order Comment: Speci men Type: FLUID SPECIMEN Ordering Facility: [facility] Address: [address] [place] [address] Performed By: #### L [id number] #### [facility] CLIA [id number] [address] [place] [address] [place] Immature granulocytes (Bld) [#/Vol] 0.05 10*3/uL Normal <0.10 [facility] Comment on above: Order Comment: Speci men Type: FLUID SPECIMEN Ordering Facility: [facility] Address: [address] [place] [address] Performed By: #### L [id number] #### [facility] CLIA [id number] [address] [place] [address] [place] Immature granulocytes/100 WBC (Bld) 0.7 % Normal [facility] Comment on above: Order Comment: Speci men Type: FLUID SPECIMEN Ordering Facility: [facility] Address: [address] [place] [address] Performed By: #### L [id number] #### [facility] CLIA [id number] [address] [place] [address] [place] Lymphocytes (Bld) [#/Vol] 1.56 10*3/uL Normal 1.00-4.00 [facility] Comment on above: Order Comment: Speci men Type: FLUID SPECIMEN Ordering Facility: [facility] Address: [address] [place] [address] Performed By: #### L [id number] #### [facility] CLIA [id number] [address] [place] [address] [place] Lymphocytes/100 WBC (Bld) 21.3 % Normal [facility] Comment on above: Order Comment: Speci men Type: FLUID SPECIMEN Ordering Facility: [facility] Address: [address] [place] [address] Performed By: #### L [id number] #### [facility] CLIA [id number] [address] [place] [address] [place] MCH (RBC) [Entitic mass] 32.8 pg Normal 26.0-34.0 [facility] Comment on above: Order Comment: Speci men Type: FLUID SPECIMEN Ordering Facility: [facility] Address: [address] [place] [address] Performed By: #### L [id number] #### [facility] CLIA [id number] [address] [place] [address] [place] MCHC (RBC) [Mass/Vol] 35.7 g/dL Normal 30.5-36.0 [facility] Comment on above: Order Comment: Speci men Type: FLUID SPECIMEN Ordering Facility: [facility] Address: [address] [place] [address] Performed By: #### L [id number] #### [facility] CLIA [id number] [address] [place] [address] [place] MCV (RBC) [Entitic vol] 92.0 fL Normal 80.0-100.0 [facility] Comment on above: Order Comment: Speci men Type: FLUID SPECIMEN Ordering Facility: [facility] Address: [address] [place] [address] Performed By: #### L [id number] #### [facility] CLIA [id number] [address] [place] [address] [place] Monocytes (Bld) [#/Vol] 0.54 10*3/uL Normal <0.87 [facility] Comment on above: Order Comment: Speci men Type: FLUID SPECIMEN Ordering Facility: [facility] Address: [address] [place] [address] Performed By: #### L [id number] #### [facility] CLIA [id number] [address] [place] [address] [place] Monocytes/100 WBC (Bld) 7.4 % Normal [facility] Comment on above: Order Comment: Speci men Type: FLUID SPECIMEN Ordering Facility: [facility] Address: [address] [place] [address] Performed By: #### L [id number] #### [facility] CLIA [id number] [address] [place] [address] [place] Neutrophils (Bld) [#/Vol] 5.06 10*3/uL Normal 1.45-7.50 [facility] Comment on above: Order Comment: Speci men Type: FLUID SPECIMEN Ordering Facility: [facility] Address: [address] [place] [address] Performed By: #### L [id number] #### [facility] CLIA [id number] [address] [place] [address] [place] Neutrophils/100 WBC (Bld) 68.8 % Normal [facility] Comment on above: Order Comment: Speci men Type: FLUID SPECIMEN Ordering Facility: [facility] Address: [address] [place] [address] Performed By: #### L [id number] #### [facility] CLIA [id number] [address] [place] [address] [place] Nucleated RBC (Bld) [#/Vol] 10*3/uL Normal <0.01 [facility] Comment on above: Order Comment: Speci men Type: FLUID SPECIMEN Ordering Facility: [facility] Address: [address] [place] [address] Performed By: #### L [id number] #### [facility] CLIA [id number] [address] [place] [address] [place] Nucleated RBC/100 WBC (Bld) [Ratio] 0.0 /100 WBC Normal [facility] Comment on above: Order Comment: Speci men Type: FLUID SPECIMEN Ordering Facility: [facility] Address: [address] [place] [address] Performed By: #### L [id number] #### [facility] CLIA [id number] [address] [place] [address] [place] Platelet mean volume (Bld) [Entitic vol] 9.0 fL Normal 9.0-12.7 [facility] Comment on above: Order Comment: Speci men Type: FLUID SPECIMEN Ordering Facility: [facility] Address: [address] [place] [address] Performed By: #### L [id number] #### [facility] CLIA [id number] [address] [place] [address] [place] Platelets (Bld) [#/Vol] 252 10*3/uL Normal 150-400 [facility] Comment on above: Order Comment: Speci men Type: FLUID SPECIMEN Ordering Facility: [facility] Address: [address] [place] [address] Performed By: #### L [id number] #### [facility] CLIA [id number] [address] [place] [address] [place] RBC (Bld) [#/Vol] 4.02 10*6/uL Normal 3.90-5.20 [facility] Comment on above: Order Comment: Speci men Type: FLUID SPECIMEN Ordering Facility: [facility] Address: [address] [place] [address] Performed By: #### L [id number] #### [facility] CLIA [id number] [address] [place] [address] [place] WBC (Bld) [#/Vol] 7.34 10*3/uL Normal 3.70-11.00 [facility] Comment on above: Order Comment: Speci men Type: FLUID SPECIMEN Ordering Facility: [facility] Address: [address] [place] [address] Performed By: #### L [id number] #### [facility] CLIA [id number] [address] [place] [address] [place] GESTATIONAL GLUCOSE SCREEN, 1-HOUR, 50 GRAM, NON-FASTINGon 12-17-2024 Glucose [Mass/Vol] 105 mg/dL Normal 74-134 [facility] Comment on above: Order Comment: Speci men Type: FLUID SPECIMEN Ordering Facility: [facility] Address: [address] [place] [address] Result Comment: [facility] Congress of Obstetricians and Gynecologists (Kasi/Michael) guidelines state a gestational diabetes mellitus positive screen is made, in women not previously diagnosed with overt diabetes, when the 1 hr plasma glucose level is equal to or above 140 mg/dL. The [facility] Promotional Marketing Analyst and Women's Health Richardson recommends a 135 mg/dL cutoff. Performed By: #### L [id number] #### [facility] CLIA [id number] [address] [place] [address] [place] Reagin and Treponema pallidu m IgG and IgM [Interp]on 12-17-2024 T. pallidum IgG+IgM IA Ql (S) Non-Reactive Normal Nonreactive [facility] Comment on above: Order Comment: Cydney tang Type: BLOOD SPECIMEN Ordering Facility: [facility] Address: [address] [place] [address] Performed By: #### T SPN #### [facility] CLIA [id number] [address] [place] [address] [place] Reagin+T pallidum IgG+IgM Se rPl-Impon 12-17-2024 Reagin and Treponema pallidum IgG and IgM [Interp] Cannot exclude recent Treponemal infection if specimen collected within 7-10 days after appearance of suspect lesions or 2-3 weeks after an exposure. Clinical correlation is required. Normal [facility] Comment on above: Order Comment: Cydney tang Type: BLOOD SPECIMEN Ordering Facility: [facility] Address: [address] [place] [address] Performed By: #### T SPN #### [facility] CLIA [id number] [address] [place] [address] [place] CNPShama 10-24-2024 CNPN Telephone ([id number]) YANET BANKS ([id number]) 1995 F Date Time Provider Department 10/24/24 NICA URIARTE [id number] During your visit today, we recorded the following information about you: Nica Uriarte RN 10/24/2024 12:41 PM Signed 2nd risk assessment form submitted 10/24/2024. Nica Uriarte RN Allergies As of Date: 10/24/2024 Noted Allergy Reaction TETANUS VACCINES AND TOXOID 12/08/2009 Comments: Ingredient in Old Tetanus Vaccine. 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 Problem List As Of Date 10/24/2024 Noted Resolved Oligomenorrhea [N91.5] 12/08/2009 Dysmenorrhea [N94.6] 12/08/2009 08/28/2024 Encounter for supervision of normal i*07/31/2024 Multiparity [Z64.1] 07/31/2024 Encounter Status:Closed by NICA URIARTE on 10/24/24 Normal [facility] Examination level ultrasound on 10-23-2024 Indication Standard [...] 12 oz EFW by: Hadlock (HC-AC-FL) Extended Insurance Clerk 6.5 mm CM 3.9 mm 13% Nicolaides [...] normal LVOT view: normal 3-vessel view: normal 6-hfewml-eedelqs view: normal Heart / Thorax Situs: situs [...] Read By: Geri Wilson M.D. MATERNAL MEDICINE [facility] Radiology Study observation (narrative) [facility] Examination level ultrasound on 08-28-2024 Indication First trimester anatomic survey Impression REMOTE READ The patient is referred for a first trimester anatomy scan including nuchal translucency measurement as clinically indicated. - Single, live, intrauterine . - Mila Doce rump length measurement is consistent with the [...] view: suboptimal 4-chamber view with color: suboptimal 0-elcrls-slusxlg view: suboptimal Abdominal cord insertion: normal Stomach: [...] Read By: Geri Wilson M.D. MATERNAL MEDICINE [facility] Radiology Study observation (narrative) [facility] CNPShama 08-01-2024 CNPN Telephone ([facility]WE) YANET BANKS ([id number]) 1995 F Date Time Provider Department 08/01/24 NURSE STAINED GLASS GLAZIER [facility] [place] [facility] During your visit today, we recorded the following information about you: Shi Medley, RN 08/01/2024 8:25 AM Signed 1st risk [...] Status:Closed by SHI MEDLEY on 08/01/24 Normal [facility] Bacteria Ur Culton Bacteria identified Cx Nom (U) CULTURE, URINE: No growth (<1,000 CFU/ml) Normal [facility] Comment on above: Performed By: #### L [id number] #### [facility] CLIA [id number] [address] [place] [address] [place] C. trachomatis+N. gonorrhoea e DNA MICHAEL+probe Ql (Unsp spec)on 07-31-2024 C. trachomatis rRNA MICHAEL+probe Ql (Unsp spec) Not detected Normal Not detected [facility] Comment on above: Order Comment: Speci men Type: FLUID SPECIMEN Ordering Facility: [facility] Address: [address] [place] [address] Performed By: #### L [id number] #### [facility] CLIA [id number] [address] [place] [address] [place] N. gonorrhoeae rRNA MICHAEL+probe Ql (Unsp spec) Not detected Normal Not detected [facility] Comment on above: Order Comment: Speci men Type: FLUID SPECIMEN Ordering Facility: [facility] Address: [address] [place] [address] Performed By: #### L [id number] #### [facility] CLIA [id number] [address] [place] [address] [place] CBC W Auto Differential pane l (Bld)on 07-31-2024 Basophils (Bld) [#/Vol] 10*3/uL Normal <0.11 [facility] Comment on above: Order Comment: Speci men Type: BLOOD SPECIMEN Ordering Facility: [facility] Address: [address] [place] [address] Performed By: #### 5 7021-8 #### [facility] CLIA [id number] [address] [place] [address] [place] Basophils/100 WBC (Bld) 0.3 % Normal [facility] Comment on above: Order Comment: Speci men Type: BLOOD SPECIMEN Ordering Facility: [facility] Address: [address] [place] [address] Performed By: #### 5 7021-8 #### [facility] CLIA [id number] [address] [place] [address] [place] Differential cell count method Nom (Bld) Auto Normal [facility] Comment on above: Order Comment: Speci men Type: BLOOD SPECIMEN Ordering Facility: [facility] Address: [address] [place] [address] Performed By: #### 5 7021-8 #### [facility] CLIA [id number] [address] [place] [address] [place] Eosinophils (Bld) [#/Vol] 0.11 10*3/uL Normal <0.46 [facility] Comment on above: Order Comment: Speci men Type: BLOOD SPECIMEN Ordering Facility: [facility] Address: [address] [place] [address] Performed By: #### 5 7021-8 #### [facility] CLIA [id number] [address] [place] [address] [place] Eosinophils/100 WBC (Bld) 1.4 % Normal [facility] Comment on above: Order Comment: Speci men Type: BLOOD SPECIMEN Ordering Facility: [facility] Address: [address] [place] [address] Performed By: #### 5 7021-8 #### [facility] CLIA [id number] [address] [place] [address] [place] Erythrocyte distribution width (RBC) [Ratio] 11.8 % Normal 11.5-15.0 [facility] Comment on above: Order Comment: Speci men Type: BLOOD SPECIMEN Ordering Facility: [facility] Address: [address] [place] [address] Performed By: #### 5 7021-8 #### [facility] CLIA [id number] [address] [place] [address] [place] Hematocrit (Bld) [Volume fraction] 40.5 % Normal 36.0-46.0 [facility] Comment on above: Order Comment: Speci men Type: BLOOD SPECIMEN Ordering Facility: [facility] Address: [address] [place] [address] Performed By: #### 5 7021-8 #### [facility] CLIA [id number] [address] [place] [address] [place] Hemoglobin (Bld) [Mass/Vol] 14.2 g/dL Normal 11.5-15.5 [facility] Comment on above: Order Comment: Speci men Type: BLOOD SPECIMEN Ordering Facility: [facility] Address: [address] [place] [address] Performed By: #### 5 7021-8 #### [facility] CLIA [id number] [address] [place] [address] [place] Immature granulocytes (Bld) [#/Vol] 0.03 10*3/uL Normal <0.10 [facility] Comment on above: Order Comment: Speci men Type: BLOOD SPECIMEN Ordering Facility: [facility] Address: [address] [place], [place] [id number] Performed By: #### 5 7021-8 #### [facility] CLIA [id number] [address] [place] [address] [place] Immature granulocytes/100 WBC (Bld) 0.4 % Normal [facility] Comment on above: Order Comment: Speci men Type: BLOOD SPECIMEN Ordering Facility: [facility] Address: [address] [place] [address] Performed By: #### 5 7021-8 #### [facility] CLIA [id number] [address] [place] [address] [place] Lymphocytes (Bld) [#/Vol] 2.09 10*3/uL Normal 1.00-4.00 [facility] Comment on above: Order Comment: Speci men Type: BLOOD SPECIMEN Ordering Facility: [facility] Address: [address] [place] [address] Performed By: #### 5 7021-8 #### [facility] CLIA [id number] [address] [place] [address] [place] Lymphocytes/100 WBC (Bld) 26.5 % Normal [facility] Comment on above: Order Comment: Speci men Type: BLOOD SPECIMEN Ordering Facility: [facility] Address: [address] [place] [address] Performed By: #### 5 7021-8 #### [facility] CLIA [id number] [address] [place] [address] [place] MCH (RBC) [Entitic mass] 31.7 pg Normal 26.0-34.0 [facility] Comment on above: Order Comment: Speci men Type: BLOOD SPECIMEN Ordering Facility: [facility] Address: [address] [place] [address] Performed By: #### 5 7021-8 #### [facility] CLIA [id number] [address] [place] [address] [place] MCHC (RBC) [Mass/Vol] 35.1 g/dL Normal 30.5-36.0 [facility] Comment on above: Order Comment: Speci men Type: BLOOD SPECIMEN Ordering Facility: [facility] Address: [address] [place] [address] Performed By: #### 5 7021-8 #### [facility] CLIA [id number] [address] [place] [address] [place] MCV (RBC) [Entitic vol] 90.4 fL Normal 80.0-100.0 [facility] Comment on above: Order Comment: Speci men Type: BLOOD SPECIMEN Ordering Facility: [facility] Address: [address] [place] [address] Performed By: #### 5 7021-8 #### [facility] CLIA [id number] [address] [place] [address] [place] Monocytes (Bld) [#/Vol] 0.48 10*3/uL Normal <0.87 [facility] Comment on above: Order Comment: Speci men Type: BLOOD SPECIMEN Ordering Facility: [facility] Address: [address] [place] [address] Performed By: #### 5 7021-8 #### [facility] CLIA [id number] [address] [place] [address] [place] Monocytes/100 WBC (Bld) 6.1 % Normal [facility] Comment on above: Order Comment: Speci men Type: BLOOD SPECIMEN Ordering Facility: [facility] Address: [address] [place] [address] Performed By: #### 5 7021-8 #### [facility] CLIA [id number] [address] [place] [address] [place] Neutrophils (Bld) [#/Vol] 5.16 10*3/uL Normal 1.45-7.50 [facility] Comment on above: Order Comment: Speci men Type: BLOOD SPECIMEN Ordering Facility: [facility] Address: [address] [place] [address] Performed By: #### 5 7021-8 #### [facility] CLIA [id number] [address] [place] [address] [place] Neutrophils/100 WBC (Bld) 65.3 % Normal [facility] Comment on above: Order Comment: Speci men Type: BLOOD SPECIMEN Ordering Facility: [facility] Address: [address] [place] [address] Performed By: #### 5 7021-8 #### [facility] CLIA [id number] [address] [place] [address] [place] Nucleated RBC (Bld) [#/Vol] 10*3/uL Normal <0.01 [facility] Comment on above: Order Comment: Speci men Type: BLOOD SPECIMEN Ordering Facility: [facility] Address: [address] [place] [address] Performed By: #### 5 7021-8 #### [facility] CLIA [id number] [address] [place] [address] [place] Nucleated RBC/100 WBC (Bld) [Ratio] 0.0 /100 WBC Normal [facility] Comment on above: Order Comment: Speci men Type: BLOOD SPECIMEN Ordering Facility: [facility] Address: [address] [place] [address] Performed By: #### 5 7021-8 #### [facility] CLIA [id number] [address] [place] [address] [place] Platelet mean volume (Bld) [Entitic vol] 9.0 fL Normal 9.0-12.7 [facility] Comment on above: Order Comment: Speci men Type: BLOOD SPECIMEN Ordering Facility: [facility] Address: [address] [place], [place] [address] Performed By: #### 5 7021-8 #### [facility] CLIA [id number] [address] [place] [address] [place] Platelets (Bld) [#/Vol] 312 10*3/uL Normal 150-400 [facility] Comment on above: Order Comment: Speci men Type: BLOOD SPECIMEN Ordering Facility: [facility] Address: [address] [place] [address] Performed By: #### 5 7021-8 #### [facility] CLIA [id number] [address] [place] [address] [place] RBC (Bld) [#/Vol] 4.48 10*6/uL Normal 3.90-5.20 [facility] Comment on above: Order Comment: Speci men Type: BLOOD SPECIMEN Ordering Facility: [facility] Address: [address] [place] [address] Performed By: #### 5 7021-8 #### [facility] CLIA [id number] [address] [place] [address] [place] WBC (Bld) [#/Vol] 7.89 10*3/uL Normal 3.70-11.00 [facility] Comment on above: Order Comment: Speci men Type: BLOOD SPECIMEN Ordering Facility: [facility] Address: [address] [place] [address] Performed By: #### 5 7021-8 #### [facility] CLIA [id number] [address] [place] [address] [place] HBV surface Ag Ser Qlon 07-17 HBV surface Ag Ql (S) Negative Normal Negative [facility] Comment on above: Order Comment: Speci men Type: BLOOD SPECIMEN Ordering Facility: [facility] Address: [address] [place] [address] Performed By: #### T SPN #### [facility] CLIA [id number] [address] [place] [address] [place] HCV Ab Ser Qlon 07-31-2024 HCV Ab Ql (S) Negative Normal Negative [facility] Comment on above: Order Comment: Speci men Type: BLOOD SPECIMEN Ordering Facility: [facility] Address: [address] [place] [address] Result Comment: The result suggests no evidence of active infection with Hepatitis C virus. Should recent infection be suspected, repeat testing may be considered 4-6 weeks after this draw. Performed By: #### T SPN #### [facility] CLIA [id number] [address] [place] [address] [place] HIGH RISK HUMAN PAPILLOMA RHINA (HPV), PCR FOR DETECTION AND GENOTYPINGon 07-31-2024 HPV 16 Ag Ql (Unsp spec) Not detected Normal Not detected [facility] Comment on above: Order Comment: Speci men Type: FLUID SPECIMEN Ordering Facility: [facility] Address: [address] [place] [address] Performed By: #### L [id number] #### [facility] CLIA [id number] [address] [place] [address] [place] HPV 18 Ag Ql (Unsp spec) Not detected Normal Not detected [facility] Comment on above: Order Comment: Speci men Type: FLUID SPECIMEN Ordering Facility: [facility] Address: [address] [place] [address] Performed By: #### L [id number] #### [facility] CLIA [id number] [address] [place] [address] [place] HPV 31+33+35+39+45+51+5 2+56+58+59+66+68 DNA MICHAEL+probe Ql (Cvx) Not detected Normal Not detected [facility] Comment on above: Order Comment: Speci men Type: FLUID SPECIMEN Ordering Facility: [facility] Address: [address] [place] [address] Result Comment: High Risk HPV Other Type includes HPV types 31, 33, 35, 39, 45, 51, 52, 56, 58, 59, 66 and 68. Performed By: #### L [id number] #### [facility] CLIA [id number] [address] [place] [address] [place] HIV 1+2 Ab IA Qlon 5 HIV 1 and 2 Ab IA.rapid Nom (S/P/Bld) Normal [facility] Comment on above: Order Comment: Speci men Type: BLOOD SPECIMEN Ordering Facility: [facility] Address: [address] [place] [address] Result Comment: Test not indicated. Performed By: #### T SPN #### [facility] CLIA [id number] [address] [place] [address] [place] HIV 1+2 Ab+HIV1 p24 Ag IA Ql Non-Reactive Normal Nonreactive [facility] Comment on above: Order Comment: Speci men Type: BLOOD SPECIMEN Ordering Facility: [facility] Address: [address] [place] [address] Performed By: #### T SPN #### [facility] CLIA [id number] [address] [place] [address] [place] HIV immunoassay testing algorithm interpretation (S/P/Bld) [Interp] Normal [facility] Comment on above: Order Comment: Speci men Type: BLOOD SPECIMEN Ordering Facility: [facility] Address: [address] [place] [address] Result Comment: No e vidence of HIV-1 or HIV-2 infection. Should recent infection be suspected, repeat testing may be considered 2-3 weeks after this draw. [place] Rev. Code 3701.243(E): This information has been [...] Performed By: #### T SPN #### [facility] [place] [id number] [address] [place] [address] [place] HbA1c (Bld)on 07-31-2024 Average glucose Estimated from glycated hemoglobin (Bld) [Mass/Vol] 82 mg/dL Normal [facility] Comment on above: Order Comment: Speci men Type: FLUID SPECIMEN Ordering Facility: [facility] Address: [address] [place] [address] Result Comment: eAG: (Estimated average glucose) is a calculated value from HgbA1c and is credit and collections representative of the average blood glucose level in the last 2-3 month period. Performed By: #### L [id number] #### [facility] CLIA [id number] [address] [place] [address] [place] HbA1c (Bld) [Mass fraction] 4.5 % Normal 4.3-5.6 [facility] Comment on above: Order Comment: Speci men Type: FLUID SPECIMEN Ordering Facility: [facility] Address: [address] [place] [address] Result Comment: Amer [place] Diabetes Association guidelines indicate that patients with HgbA1c in the range 5.7-6.4% are at increased risk for development of diabetes, and intervention by lifestyle modification may be beneficial. HgbA1c greater or equal to 6.5% is considered diagnostic of diabetes. Performed By: #### L [id number] #### [facility] CLIA [id number] [address] [place] [address] [place] PAP TESTon 07-31-2024 ADEQUACY Satisfactory for interpretation. Normal [facility] Comment on above: Order Comment: Speci men Type: FLUID SPECIMEN Ordering Facility: [facility] Address: [address] [place] [address] Performed By: #### L [id number] #### [facility] CLIA [id number] [address] [place] [address] [place] CASE REPORT Normal [facility] Comment on above: Order Comment: Speci men Type: FLUID SPECIMEN Ordering Facility: [facility] Address: [address] [place] [address] Result Comment: Gyne cologic Cytology Report Case: [id number] Authorizing Provider: Annie Thakur APRN.CNM Collected: 07/31/2024 09:53 AM Ordering Location: OB/Gynecology Received: 07/31/2024 12:21 PM First Screen: Nica Arguello, CT, ASCP Specimen: Pap Test, ThinPrep, Cervix Performed By: #### L [id number] #### [facility] CLIA [id number] [address] [place] [address] [place] CLINICAL HISTORY, CYTOLOGY, SCHOOL STANDARDS COACH Routine Exam Normal [facility] Comment on above: Order Comment: Speci men Type: FLUID SPECIMEN Ordering Facility: [facility] Address: [address] [place] [address] Performed By: #### L [id number] #### [facility] CLIA [id number] [address] [place] [address] [place] FINAL PERFORMING LAB Normal [facility] Comment on above: Order Comment: Speci men Type: FLUID SPECIMEN Ordering Facility: [facility] Address: [address] [place] [address] Result Comment: Tech nical component, boat canvas maker and installer screening performed at [facility], [address] [place] [address] [place] [address] CLIA# [id number] Diagnostic interpretation performed at [facility], [address] [place], [place] [id number] CLIA# [id number] Tile Layer Drainage: Timi Floyd M.D. Performed By: #### L [id number] #### [facility] CLIA [id number] [address] [place] [address] [place] INTERPRETATION, CYTOLOGY, SCHOOL STANDARDS COACH Normal [facility] Comment on above: Order Comment: Speci men Type: FLUID SPECIMEN Ordering Facility: [facility] Address: [address] [place] [address] Result Comment: Nega tive for intraepithelial lesion or malignancy. Performed By: #### L [id number] #### [facility] CLIA [id number] [address] [place] [address] [place] LMP 06/01/2024 Normal [facility] Comment on above: Order Comment: Speci men Type: FLUID SPECIMEN Ordering Facility: [facility] Address: [address] [place] [address] Performed By: #### L [id number] #### [facility] CLIA [id number] [address] [place] [address] [place] PAP DISCLAIMER COMMENT The Pap Smear is a screening test for cervical cancer. False negative results occur with all screening tests, emphasizing the need for rescreening at recommended intervals, and clinical correlation. Normal [facility] Comment on above: Order Comment: Speci men Type: FLUID SPECIMEN Ordering Facility: [facility] Address: [address] [place] [address] Performed By: #### L [id number] #### [facility] CLIA [id number] [address] [place] [address] [place] PAP HEALTH AND SAFETY COORDINATOR COMMENT This specimen has been analyzed by the ThinPrep Imaging System, an automated imaging and review system, which assists the laboratory in evaluating cells on ThinPrep Pap tests. Following automated imaging, selected maki from every slide are reviewed by a boat canvas maker and installer. Normal [facility] Comment on above: Order Comment: Speci men Type: FLUID SPECIMEN Ordering Facility: [facility] Address: [address] [place] [address] Performed By: #### L [id number] #### [facility] CLIA [id number] [address] [place] [address] [place] POC KNOCKOUT MAN ULTRASOUNDon 07-31-19 25 Indication Viability; confirm cardiac activity Impression Single [...] Read By: Annie Thakur CNM MATERNAL MEDICINE [facility] Radiology Study observation (narrative) [facility] RUBELLA IGG ANTIBODYon 07-31 RUBELLA IGG AB, QUAL Positive Normal Positive [facility] Comment on above: Order Comment: Speci men Type: FLUID SPECIMEN Ordering Facility: [facility] Address: [address] [place] [address] Result Comment: The result suggests recent or past exposure to Rubella virus or history of Rubella vaccination. Positive result may also be seen due to presence of passively-transferred antibodies. Please correlate with patient's history. Performed By: #### L [id number] #### [facility] CLIA [id number] [address] [place] [address] [place] Reagin and Treponema pallidu m IgG and IgM [Interp]on 07-31-2024 T. pallidum IgG+IgM IA Ql (S) Non-Reactive Normal Nonreactive [facility] Comment on above: Order Comment: Speci men Type: BLOOD SPECIMEN Ordering Facility: [facility] Address: [address] [place] [address] Performed By: #### T SPN #### [facility] CLIA [id number] [address] [place] [address] [place] Reagin+T pallidum IgG+IgM Se rPl-Impon 07-31-2024 Reagin and Treponema pallidum IgG and IgM [Interp] Cannot exclude recent Treponemal infection if specimen collected within 7-10 days after appearance of suspect lesions or 2-3 weeks after an exposure. Clinical correlation is required. Normal [facility] Comment on above: Order Comment: Speci men Type: BLOOD SPECIMEN Ordering Facility: [facility] Address: [address] [place] [address] Performed By: #### T SPN #### [facility] BLOOD BANK CLIA [id number] [address] [place] [address] [place] TYPE + SCREEN PRENATALon ABO O [facility] Comment on above: Order Comment: Speci men Type: BLOOD SPECIMEN Ordering Facility: [facility] Address: [address] [place] [address] Performed By: #### T SPN #### CC MAIN BLOOD BANK CLIA [id number] [address] [place] [address] [place] Rh Nom (Bld) Positive Normal [facility] Comment on above: Order Comment: Speci men Type: BLOOD SPECIMEN Ordering Facility: [facility] Address: [address] [place] [address] Performed By: #### T SPN #### CC MAIN BLOOD BANK CLIA [id number] [address] [place] [address] [place] TYPE AND SCREEN EXPIRATION 08/03/2024 23:59 Normal [facility] Comment on above: Order Comment: Speci men Type: BLOOD SPECIMEN Ordering Facility: [facility] Address: [address] [place] [address] Performed By: #### T SPN #### CC MAIN BLOOD BANK CLIA [id number] [address] [place] [address] [place] POCT URINE PREGNANCYon 10-24 HCG ( test) Ql (U) [facility] Comment on above: Order Comment: Relea se to patient->Immediate HCG ( test) Ql (U) Negative [facility] Comment on above: Order Comment: Relea se to patient->Immediate POCT RAPID STREP TESTon 07-17 EXPIRATION DATE: [facility] Comment on above: Order Comment: Relea se to patient->Immediate EXPIRATION DATE: 06/06/2024 [facility] Comment on above: Order Comment: Relea se to patient->Immediate LOT NUMBER [facility] Comment on above: Order Comment: Relea se to patient->Immediate LOT NUMBER [id number] [facility] Comment on above: Order Comment: Relea se to patient->Immediate S. pyogenes Ag IA Ql (Unsp spec) Negative [facility] Comment on above: Order Comment: Relea se to patient->Immediate S. pyogenes Ag IA Ql (Unsp spec) [facility] Comment on above: Order Comment: Relea se to patient->Immediate POCT URINE PREGNANCYon 01-16 EXPIRATION DATE: [facility] Comment on above: Order Comment: Relea se to patient->Immediate EXPIRATION DATE: 03/16/2024 [facility] Comment on above: Order Comment: Relea se to patient->Immediate HCG ( test) Ql (U) [facility] Comment on above: Order Comment: Oga se to patient->Immediate HCG ( test) Ql (U) Negative [facility] Comment on above: Order Comment: Jorge se to patient->Immediate LOT NUMBER [id number] [facility] Comment on above: Order Comment: Oga se to patient->Immediate LOT NUMBER [facility] Comment on above: Order Comment: Oga se to patient->Immediate MEDICAL STAFFon 11-19-2022 Jewelry Manager Authentication Interface Message Text Reports good rest [...] Continue PP care support Teaching Discharge Normal [facility] PATIENT INSTRUCTIONSon 11-19 Jewelry Manager Authentication Interface Message Text [facility] [phone] Pamper Yourself! Congratulations on the of your [...] at first be bright red. It will climate change risk assessor several days to dark red, to brown, to brownish yellow, and then to white. It should not have a bad or foul odor. Let your bleeding be your guide. If you are doing too much at home, your bleeding will increase and become bright red again. This will be your sign to take it easy. mothers often have no periods while medical records secretary. Bottle feeding mothers can expect to have [...] you become (more content not included)... [facility] NOTEon 11-18-2022 Jewelry Manager Authentication Interface Message Text 11/18/22 6096 History Consult Breastfed Previous Child Yes Breastfed Previous Child for 3-6 months (pumped also) Breasts/Nipples Left Breast Soft;Reported by patient Right Breast Soft;Reported by patient Left Nipple Intact;Tender;Reporte d by patient Right Nipple Intact;Tender;Reporte d by patient Interventions General Interventions Copd-ce-mcdg;On cue feeding;Assist to awaken Nipple Management Assess Correct latch;Repositioned correctly;Deeper, asymmetrical latch (Discussed with pt) Infant Weight Loss Assessed output;Encouraged frequent feeds Assessment Status BF well-States BF well; improving;Reported by patient Position Varied positions Maternal Stress Level Relaxed;Confident;Rep orted by patient;Observed by LC Support System Positive Maternal Interaction with Infant Attentive;Affectionat e Breast Pump Verbalizes understanding of expression Nipple Shield N/A-Does not apply Infant Assessment Infant Location With Mother in room Position Preferred Side Lying Infant Interest Exhibits feeding cues;Latches easily;Reported by mother;Observed by LC State Relaxed;Sleepy;Observ ed by Feeding Assessment Strong suck;Infant output appropriate for age;Frequency of feedings appropriate;Encourage d frequent feeds;Gentle chin pull demonstrated;Retracts /tucks lips;Reported by mother;Observed by Oral Assessment Normal tongue, palate, jaw Supplementation Given No Spoke with pt who is an experienced mother who states that her first child had a tongue tie with a revision. Pt inquiring if current infant might have a tongue tie as well. noted to be able to get tongue pat bottom lip. did appear to have a receding chin while tucking in bottom lip at times. Discussed with pt to try different positions while and see if that helps with 's latch. Pt voiced understanding. noted to be [...] with and questions, concerns or assistance needed. [facility] Jewelry Manager [email or web address] Interface Message Text 11/18/22 1220 History Consult Patient unavailable;Other/com ment (Pt sleeping) [facility] [email or web address] Interface Message Text 11/18/22 1032 History Consult Other/comment (Pt has visitors at this time and requests that come back later.) [facility] MEDICAL STAFFon 11-18-2022 Jewelry Manager Authentication Interface Message Text Reports good rest [...] Stable Breast Continue PP care support Teaching [facility] H&Jose 11-17-2022 [email or web address] Interface Message Text Attestation signed by Sharyn Waldron MD at 11/17/22 0268 I have reviewed this patient's H noted in triage. If persists, will need labs and L [facility] Obstetrics Admission Note Patient Name: Yanet Banks : 1995 11/17/2022 8:12 PM MEDICAL DECISION MAKING: records reviewed. Case discussed with Dr. Waldron, glass cut off supervisor Differential Diagnosis:n/a Interventions: NST Assessment/Plan 26 year [...] from 4-6cm. She is planning NCB in FBBC. ROS: 14 point review of systems completed. [...] -1 (11/17/221847) Estimated weight: 3300 gms by Lazaro Labs: ABO Grouping Date Value Ref Range [...] Final Glucose (more content not included)... [facility] L&D DELIVERYon 11-17-2022 Jewelry Manager Authentication Interface Message Text [facility] Spontaneous Vaginal Delivery Note Delivery Summary for Yanet Banks : 1995 Information for the patient's : Partha Banks [[id number]] Delivery Information: Date/Time of Delivery: 11/17/2022 8:50 PM By: Normal Spontaneous Vaginal Delivery Clinician: Dustin Benavides Maternal Information: Episiotomy: None Lacerations: None Repair suture: n/a Repair # of packets: 0 Blood loss (ml): 200 Information for the patient's : Partha Banks [[id number]] Information: Living?: Living Presentation/position : Cephalic Left [...] gentle downward pressure. Posterior shoulder followed easily. to maternal abdomen, dried, and stimulated. Vigorous cry. Cord clamping was delayed until cord no longer pulsating, the cord was cut by FOB. placed skin to skin with FOB. Yanet assisted from tub to bed by RN and CNM. Placenta delivered intact and spontaneously. Uterus firm, bleeding small. Vagina and perineum inspected. no lacerations present. Hemostasis assured. Mom and baby well. Surgical Manager verified all counts correct. Dr. Waldron notified of . Electronically signed by: Dustin Benavides APRN, 11/17/2022 9:38 PM [facility] PATIENT INSTRUCTIONSon 11-17 Jewelry Manager Authentication Interface Message Text Thank you for choosing [facility] [place]. It was a pleasure to see you today! Please call [phone] for all your office needs. Your opinion [...] improve your experience. We are available via Prom[employer] messages and phone calls during regular business hours, but if there is an urgent need or you need to be seen after hours (in triage or the ER) please call our after hours number [phone]. You will be connected to the expeditionary fighting vehicle crewman physician or tray worker. If a hospital visit is recommended please always go to [facility] located at [address] [place] [address]. Getting your test results is easier than ever! There are several ways you could receive results If you are a [employer] user this allows you rapid access to results. Most test results are released within 24 hours and may be viewable to you even before your provider reviews the results, or Clinical staff may call you with any abnormal results to discuss further your plan of care with the provider, or you could receive a letter for normal results. Attention [employer] Users! Want to send us a non urgent message, check your test results, request a medication refill, or schedule an appointment at your convenience? It's fast, safe, and easy. Just log in to [email or web address] and enter your user name and password. If you don't have a user name or password please ask one of our very qualified staff members and they will be happy to assist you in getting signed up. These messages are checked during office hours only. Please still call the office or physician expeditionary fighting vehicle crewman with any urgent medical issues. For technical support, call If you had labs ordered today you can go to any [facility] lab and walk in with no appointment needed. If any imaging was ordered for you, central scheduling should call you within the week. If you do not hear from them, you can call them at [phone]. Any outpatient referrals with be taken care of by our staff. If you do not hear from their office within 1 week, please call our office at [phone] so we can check on the status for you. We all want to Thank you for choosing [facility]! Normal Provider Locations PATIENT INSTRUCTIONSon 11-09 Jewelry Manager Authentication Interface Message Text Thank you for choosing [facility]. It was a pleasure to see you today! Please call [phone] for all your office needs. Your opinion [...] improve your experience. We are available via Prom[employer]U messages and phone calls during regular business hours, but if there is an urgent need or you need to be seen after hours (in triage or the ER) please call our after hours number [phone]. You will be connected to the expeditionary fighting vehicle crewman physician or tray worker. If a hospital visit is recommended please always go to [facility] located at [address] [facility] in [place]. Getting your test results is easier than ever! There are several ways you could receive results If you are a [employer] user this allows you rapid access to results. Most test results are released within 24 hours and may be viewable to you even before your provider reviews the results, or Clinical staff may call you with any abnormal results to discuss further your plan of care with the provider, or you could receive a letter for normal results. Attention [employer] Users! Want to send us a non urgent message, check your test results, request a medication refill, or schedule an appointment at your convenience? It's fast, safe, and easy. Just log in to [email or web address] and enter your user name and password. If you don't have a user name or password please ask one of our very qualified staff members and they will be happy to assist you in getting signed up. These messages are checked during office hours only. Please still call the office or physician expeditionary fighting vehicle crewman with any urgent medical issues. For technical support, call If you had labs ordered today you can go to any [facility] lab and walk in with no appointment needed. If any imaging was ordered for you, central scheduling should call you within the week. If you do not hear from them, you can call them at [phone]. Any outpatient referrals with be taken care of by our staff. If you do not hear from their office within 1 week, please call our office at [phone] so we can check on the status for you. We all want to Thank you for choosing [facility]! Normal Provider Locations PROGRESS NOTESon 11-09-2022 Jewelry Manager Authentication Interface Message Text Pt presents today for routine OB visit @ 38+1 +FM, no bleeding, no LOF Feeling well overall, ready to meet baby Hurt her back sitting for a long period of time Discussed comfort measures All set for FBBC She has no other questions or concerns S=D RTO 1 week Normal Provider Locations Jewelry Manager Authentication Interface Message Text Patient Active Problem [...] NON REACTIVE Provider Locations PATIENT INSTRUCTIONSon 11-02 Jewelry Manager Authentication Interface Message Text Thank you for choosing [facility] [place]. It was a pleasure to see you today! Please call [phone] for all your office needs. Your opinion [...] improve your experience. We are available via Prom[employer] messages and phone calls during regular business hours, but if there is an urgent need or you need to be seen after hours (in triage or the ER) please call our after hours number [phone]. You will be connected to the expeditionary fighting vehicle crewman physician or tray worker. If a hospital visit is recommended please always go to [facility] located at [address] [place] [address]. Getting your test results is easier than ever! There are several ways you could receive results If you are a [employer] user this allows you rapid access to results. Most test results are released within 24 hours and may be viewable to you even before your provider reviews the results, or Clinical staff may call you with any abnormal results to discuss further your plan of care with the provider, or you could receive a letter for normal results. Attention [employer] Users! Want to send us a non urgent message, check your test results, request a medication refill, or schedule an appointment at your convenience? It's fast, safe, and easy. Just log in to [email or web address] and enter your user name and password. If you don't have a user name or password please ask one of our very qualified staff members and they will be happy to assist you in getting signed up. These messages are checked during office hours only. Please still call the office or physician expeditionary fighting vehicle crewman with any urgent medical issues. For technical support, call If you had labs ordered today you can go to any [facility] lab and walk in with no appointment needed. If any imaging was ordered for you, central scheduling should call you within the week. If you do not hear from them, you can call them at [phone]. Any outpatient referrals with be taken care of by our staff. If you do not hear from their office within 1 week, please call our office at [phone] so we can check on the status for you. We all want to Thank you for choosing [facility]! Normal Provider Locations PROGRESS NOTESon 11-02-2022 Jewelry Manager Authentication Interface Message Text Patient Active Problem [...] uc/std/pl WNL Pertussis allergy Normal Provider Locations Jewelry Manager Authentication Interface Message Text Pt presents today [...] ISOLATED Normal Provider Locations PATIENT INSTRUCTIONSon 10-26 Jewelry Manager Authentication Interface Message Text Thank you for choosing [facility] [place]. It was a pleasure to see you today! Please call [phone] for all your office needs. Your opinion [...] improve your experience. We are available via Prom[employer] messages and phone calls during regular business hours, but if there is an urgent need or you need to be seen after hours (in triage or the ER) please call our after hours number [phone]. You will be connected to the expeditionary fighting vehicle crewman physician or tray worker. If a hospital visit is recommended please always go to [facility] located at [address] [facility]. Getting your test results is easier than ever! There are several ways you could receive results If you are a [employer] user this allows you rapid access to results. Most test results are released within 24 hours and may be viewable to you even before your provider reviews the results, or Clinical staff may call you with any abnormal results to discuss further your plan of care with the provider, or you could receive a letter for normal results. Attention [employer] Users! Want to send us a non urgent message, check your test results, request a medication refill, or schedule an appointment at your convenience? It's fast, safe, and easy. Just log in to [email or web address] and enter your user name and password. If you don't have a user name or password please ask one of our very qualified staff members and they will be happy to assist you in getting signed up. These messages are checked during office hours only. Please still call the office or physician expeditionary fighting vehicle crewman with any urgent medical issues. For technical support, call If you had labs ordered today you can go to any [facility] lab and walk in with no appointment needed. If any imaging was ordered for you, central scheduling should call you within the week. If you do not hear from them, you can call them at [phone]. Any outpatient referrals with be taken care of by our staff. If you do not hear from their office within 1 week, please call our office at [phone] so we can check on the status for you. We all want to Thank you for choosing [facility]! Normal Provider Locations PROGRESS NOTESon 10-26-2022 Jewelry Manager Authentication Interface Message Text Patient Active Problem [...] uc/std/pl WNL Pertussis allergy Normal Provider Locations Jewelry Manager Authentication Interface Message Text Pt presents today for routine OB visit @ 36+1 +FM, no bleeding, no LOF Feeling well overall, ready to meet baby soon! GBS self collected All set for FBBC She has no other questions or concerns S=D RTO 1 week Normal Provider Locations PATIENT INSTRUCTIONSon 10-12 Jewelry Manager Authentication Interface Message Text Thank you for choosing [facility] [place]. It was a pleasure to see you today! Please call [phone] for all your office needs. Your opinion [...] improve your experience. We are available via Prom[employer] messages and phone calls during regular business hours, but if there is an urgent need or you need to be seen after hours (in triage or the ER) please call our after hours number [phone]. You will be connected to the expeditionary fighting vehicle crewman physician or tray worker. If a hospital visit is recommended please always go to [facility] located at [address] [place] [address]. Getting your test results is easier than ever! There are several ways you could receive results If you are a [employer] user this allows you rapid access to results. Most test results are released within 24 hours and may be viewable to you even before your provider reviews the results, or Clinical staff may call you with any abnormal results to discuss further your plan of care with the provider, or you could receive a letter for normal results. Attention [employer] Users! Want to send us a non urgent message, check your test results, request a medication refill, or schedule an appointment at your convenience? It's fast, safe, and easy. Just log in to [email or web address] and enter your user name and password. If you don't have a user name or password please ask one of our very qualified staff members and they will be happy to assist you in getting signed up. These messages are checked during office hours only. Please still call the office or physician expeditionary fighting vehicle crewman with any urgent medical issues. For technical support, call If you had labs ordered today you can go to any [facility] lab and walk in with no appointment needed. If any imaging was ordered for you, central scheduling should call you within the week. If you do not hear from them, you can call them at [phone]. Any outpatient referrals with be taken care of by our staff. If you do not hear from their office within 1 week, please call our office at [phone] so we can check on the status for you. We all want to Thank you for choosing [facility]! Normal Provider Locations PROGRESS NOTESon 10-12-2022 Jewelry Manager Authentication Interface Message Text Routine OB visit @ 34+1 Good FM Denies VB, LOF, or ctx Has 36 week appointment with FBBC scheduled FBBC paperwork signed today, patient remains low risk candidate RPR/CBC ordered S=D RTO 2 weeks Normal Provider Locations Jewelry Manager Authentication Interface Message Text Patient Active Problem [...] allergy. Normal Provider Locations PATIENT INSTRUCTIONSon 09-28 Jewelry Manager Authentication Interface Message Text Thank you for choosing [facility] [place]. It was a pleasure to see you today! Please call [phone] for all your office needs. Your opinion [...] improve your experience. We are available via Prom[employer]U messages and phone calls during regular business hours, but if there is an urgent need or you need to be seen after hours (in triage or the ER) please call our after hours number [phone]. You will be connected to the expeditionary fighting vehicle crewman physician or tray worker. If a hospital visit is recommended please always go to [facility] located at [address] [place] [address] in [place]. Getting your test results is easier than ever! There are several ways you could receive results If you are a [employer] user this allows you rapid access to results. Most test results are released within 24 hours and may be viewable to you even before your provider reviews the results, or Clinical staff may call you with any abnormal results to discuss further your plan of care with the provider, or you could receive a letter for normal results. Attention [employer] Users! Want to send us a non urgent message, check your test results, request a medication refill, or schedule an appointment at your convenience? It's fast, safe, and easy. Just log in to [email or web address] and enter your user name and password. If you don't have a user name or password please ask one of our very qualified staff members and they will be happy to assist you in getting signed up. These messages are checked during office hours only. Please still call the office or physician expeditionary fighting vehicle crewman with any urgent medical issues. For technical support, call If you had labs ordered today you can go to any [facility] lab and walk in with no appointment needed. If any imaging was ordered for you, central scheduling should call you within the week. If you do not hear from them, you can call them at [phone]. Any outpatient referrals with be taken care of by our staff. If you do not hear from their office within 1 week, please call our office at [phone] so we can check on the status for you. We all want to Thank you for choosing [facility]! Normal Provider Locations PROGRESS NOTESon 09-28-2022 Jewelry Manager Authentication Interface Message Text Patient Active Problem List Diagnosis Date Noted ? Supervision of other normal , antepartum 04/27/2022 Planning FBBC Urine Glucose negative Protein negative Leukocytes positive - trace RBC negative Nitrites negative Here for ob check O+ gtt 88/hgb 13.1 +fm Normal Provider Locations Jewelry Manager Authentication Interface Message Text + movement Feels good Discussed FBBC consent she needs to bring in No other concerns LMixCNM Normal Provider Locations PATIENT INSTRUCTIONSon 09-12 Jewelry Manager Authentication Interface Message Text Thank you for choosing [facility]. It was a pleasure to see you today! Please call [phone] for all your office needs. Your opinion [...] improve your experience. We are available via PromoteU messages and phone calls during regular business hours, but if there is an urgent need or you need to be seen after hours (in triage or the ER) please call our after hours number [phone]. You will be connected to the expeditionary fighting vehicle crewman physician or tray worker. If a hospital visit is recommended please always go to [facility] located at [address] [place] [address]. Getting your test results is easier than ever! There are several ways you could receive results If you are a [employer] user this allows you rapid access to results. Most test results are released within 24 hours and may be viewable to you even before your provider reviews the results, or Clinical staff may call you with any abnormal results to discuss further your plan of care with the provider, or you could receive a letter for normal results. Attention [employer] Users! Want to send us a non urgent message, check your test results, request a medication refill, or schedule an appointment at your convenience? It's fast, safe, and easy. Just log in to [email or web address] and enter your user name and password. If you don't have a user name or password please ask one of our very qualified staff members and they will be happy to assist you in getting signed up. These messages are checked during office hours only. Please still call the office or physician expeditionary fighting vehicle crewman with any urgent medical issues. For technical support, call If you had labs ordered today you can go to any [facility] lab and walk in with no appointment needed. If any imaging was ordered for you, central scheduling should call you within the week. If you do not hear from them, you can call them at [phone]. Any outpatient referrals with be taken care of by our staff. If you do not hear from their office within 1 week, please call our office at [phone] so we can check on the status for you. We all want to Thank you for choosing [facility] Normal Provider Locations PROGRESS NOTESon 09-12-2022 Jewelry Manager Authentication Interface Message Text Patient Active Problem List Diagnosis Date Noted ? Supervision of other normal , antepartum 04/27/2022 Planning FBBC Urine Glucose negative Protein negative Leukocytes negative RBC negative Nitrites negative patient presents for ob check states +FM O+ gtt 88 hgb 13.1 tdap - allergy No questions or concerns at this time. Normal Provider Locations PATIENT INSTRUCTIONSon 08-31 Jewelry Manager Authentication Interface Message Text Thank you for choosing [facility]. It was a pleasure to see you today! Please call [phone] for all your office needs. Your opinion [...] improve your experience. We are available via PromoteU messages and phone calls during regular business hours, but if there is an urgent need or you need to be seen after hours (in triage or the ER) please call our after hours number [phone]. You will be connected to the expeditionary fighting vehicle crewman physician or tray worker. If a hospital visit is recommended please always go to [facility] located at [address] [place] [address]. Getting your test results is easier than ever! There are several ways you could receive results If you are a [employer] user this allows you rapid access to results. Most test results are released within 24 hours and may be viewable to you even before your provider reviews the results, or Clinical staff may call you with any abnormal results to discuss further your plan of care with the provider, or you could receive a letter for normal results. Attention [employer] Users! Want to send us a non urgent message, check your test results, request a medication refill, or schedule an appointment at your convenience? It's fast, safe, and easy. Just log in to [email or web address] and enter your user name and password. If you don't have a user name or password please ask one of our very qualified staff members and they will be happy to assist you in getting signed up. These messages are checked during office hours only. Please still call the office or physician expeditionary fighting vehicle crewman with any urgent medical issues. For technical support, call If you had labs ordered today you can go to any [facility] lab and walk in with no appointment needed. If any imaging was ordered for you, central scheduling should call you within the week. If you do not hear from them, you can call them at [phone]. Any outpatient referrals with be taken care of by our staff. If you do not hear from their office within 1 week, please call our office at [phone] so we can check on the status for you. We all want to Thank you for choosing [facility] Normal Provider Locations PROGRESS NOTESon 08-31-2022 Jewelry Manager Authentication Interface Message Text Patient Active Problem List Diagnosis Date Noted ? Supervision of other normal , antepartum 04/27/2022 Planning FBBC Urine Glucose negative Protein negative Leukocytes positive - trace RBC negative Nitrites negative Here for ob check O+ gtt 88/hgb 13.1 Discuss varicose vein on labia Normal Provider Locations Jewelry Manager Authentication Interface Message Text Pt presents for [...] WBC (Bld) [#/Vol] 8.3 10*3/uL Normal 3.5-10.9 Provid er Locations GLUCOSE CHALLENGE, 1HOURon 0 08-26-2022 Glucose [Mass/Vol] 88 mg/dL Normal <140 Provid er Locations PATIENT INSTRUCTIONSon 08-02 Jewelry Manager Authentication Interface Message Text Thank you for choosing [facility]. It was a pleasure to see you today! Please call [phone] for all your office needs. Your opinion [...] improve your experience. We are available via Prom[employer]U messages and phone calls during regular business hours, but if there is an urgent need or you need to be seen after hours (in triage or the ER) please call our after hours number [phone]. You will be connected to the expeditionary fighting vehicle crewman physician or tray worker. If a hospital visit is recommended please always go to [facility] located at [address] [facility]. Getting your test results is easier than ever! There are several ways you could receive results If you are a [employer] user this allows you rapid access to results. Most test results are released within 24 hours and may be viewable to you even before your provider reviews the results, or Clinical staff may call you with any abnormal results to discuss further your plan of care with the provider, or you could receive a letter for normal results. Attention My[employer] Users! Want to send us a non urgent message, check your test results, request a medication refill, or schedule an appointment at your convenience? It's fast, safe, and easy. Just log in to [email or web address] and enter your user name and password. If you don't have a user name or password please ask one of our very qualified staff members and they will be happy to assist you in getting signed up. These messages are checked during office hours only. Please still call the office or physician expeditionary fighting vehicle crewman with any urgent medical issues. For technical support, call If you had labs ordered today you can go to any [facility] lab and walk in with no appointment needed. If any imaging was ordered for you, central scheduling should call you within the week. If you do not hear from them, you can call them at [phone]. Any outpatient referrals with be taken care of by our staff. If you do not hear from their office within 1 week, please call our office at [phone] so we can check on the status for you. We all want to Thank you for choosing [facility] Normal Provider Locations PROGRESS NOTESon 08-02-2022 Jewelry Manager Authentication Interface Message Text Pt presents today for routine OB visit @ 24+0 +FM, no bleeding, no LOF Feeling well overall Plans to do GTT in next few weeks Will call FBBC between 28-32 weeks She has no other questions or concerns S=D RTO 4 weeks Normal Provider Locations Jewelry Manager Authentication Interface Message Text Patient Active Problem List Diagnosis Date Noted ? Supervision of other normal , antepartum 04/27/2022 Planning FBBC Urine Glucose negative Protein negative Leukocytes positive - 1+ RBC negative Nitrites negative Here for exam. Will do GTT around 26 weeks. No concerns or questions today. +FM, says baby is moving well. Normal Provider Locations PATIENT INSTRUCTIONSon 06-30 Jewelry Manager Authentication Interface Message Text Thank you for choosing [facility]. It was a pleasure to see you today! Please call [phone] for all your office needs. Your opinion [...] improve your experience. We are available via PromoteU messages and phone calls during regular business hours, but if there is an urgent need or you need to be seen after hours (in triage or the ER) please call our after hours number [phone]. You will be connected to the expeditionary fighting vehicle crewman physician or tray worker. If a hospital visit is recommended please always go to [facility] located at [address] [facility] [place]. Getting your test results is easier than ever! There are several ways you could receive results If you are a [employer] user this allows you rapid access to results. Most test results are released within 24 hours and may be viewable to you even before your provider reviews the results, or Clinical staff may call you with any abnormal results to discuss further your plan of care with the provider, or you could receive a letter for normal results. Attention [employer] Users! Want to send us a non urgent message, check your test results, request a medication refill, or schedule an appointment at your convenience? It's fast, safe, and easy. Just log in to [email or web address] and enter your user name and password. If you don't have a user name or password please ask one of our very qualified staff members and they will be happy to assist you in getting signed up. These messages are checked during office hours only. Please still call the office or physician expeditionary fighting vehicle crewman with any urgent medical issues. For technical support, call If you had labs ordered today you can go to any [facility] lab and walk in with no appointment needed. If any imaging was ordered for you, central scheduling should call you within the week. If you do not hear from them, you can call them at [phone]. Any outpatient referrals with be taken care of by our staff. If you do not hear from their office within 1 week, please call our office at [phone] so we can check on the status for you. We all want to Thank you for choosing [facility] Normal Provider Locations PROGRESS NOTESon 06-30-2022 Jewelry Manager Authentication Interface Message Text Patient Active Problem [...] hgb 14.1 uc/std/pl WNL Normal Provider Locations Jewelry Manager Authentication Interface Message Text Yanet Banks was seen in [facility] 06/30/2022. Normal [facility] PATIENT INSTRUCTIONSon 05-25 Jewelry Manager Authentication Interface Message Text Thank you for choosing [facility]. It was a pleasure to see you today! Please call [phone] for all your office needs. Your opinion [...] improve your experience. We are available via PromoteU messages and phone calls during regular business hours, but if there is an urgent need or you need to be seen after hours (in triage or the ER) please call our after hours number [phone]. You will be connected to the expeditionary fighting vehicle crewman physician or tray worker. If a hospital visit is recommended please always go to main [facility] located at [address] [place] [address]. Getting your test results is easier than ever! There are several ways you could receive results If you are a X[employer] user this allows you rapid access to results. Most test results are released within 24 hours and may be viewable to you even before your provider reviews the results, or Clinical staff may call you with any abnormal results to discuss further your plan of care with the provider, or you could receive a letter for normal results. Attention [employer] Users! Want to send us a non urgent message, check your test results, request a medication refill, or schedule an appointment at your convenience? It's fast, safe, and easy. Just log in to [email or web address] and enter your user name and password. If you don't have a user name or password please ask one of our very qualified staff members and they will be happy to assist you in getting signed up. These messages are checked during office hours only. Please still call the office or physician expeditionary fighting vehicle crewman with any urgent medical issues. For technical support, call If you had labs ordered today you can go to any [facility] lab and walk in with no appointment needed. If any imaging was ordered for you, central scheduling should call you within the week. If you do not hear from them, you can call them at [phone]. Any outpatient referrals with be taken care of by our staff. If you do not hear from their office within 1 week, please call our office at [phone] so we can check on the status for you. We all want to Thank you for choosing [facility] Normal Provider Locations PROGRESS NOTESon 05-25-2022 Jewelry Manager Authentication Interface Message Text Patient Active Problem [...] concerns at this time Normal Provider Locations Jewelry Manager Authentication Interface Message Text Yanet Banks [id number] [phone] Patient Active Problem List Diagnosis ? [...] NEGATIVE Provider Locations HIV AG/AB SCREEN, EIAon HIV AG/AB SCREEN Non-Reactive Normal NON REACTIVE [...] 3.5-10.9 Provid er Locations ANESTH ADDENDUMon 04-27-2022 Jewelry Manager Authentication Interface Message Text Addended by: ZAIDA [...] DETECTED Normal Provider Locations PROGRESS NOTESon 04-27-2022 Jewelry Manager Authentication Interface Message Text There are no [...] concerns at this time Normal Provider Locations Jewelry Manager Authentication Interface Message Text New OB visit [...] Anion gap [Moles/Vol] 13 mmol/L Normal 5-15 [facility] Comment on above: Performed By: #### L [id number] #### [place] [address] Calcium [Mass/Vol] 9.5 mg/dL Normal 8.5-10.5 [facility] Comment on above: Performed By: #### L [id number] #### [place] [address] Chloride [Moles/Vol] 101 mmol/L Normal 96-110 [facility] Comment on above: Performed By: #### L [id number] #### [place] [id number] CO2 [Moles/Vol] 22 mmol/L Normal 19-32 [facility] Comment on above: Performed By: #### L [id number] #### [place] [id number] Creatinine [Mass/Vol] 0.6 mg/dL Normal 0.5-1.2 [facility] Comment on above: Performed By: #### L [id number] #### [place] [id number] ESTIMATED GFR 126 mL/min/1.73m*2 Normal >=60 [facility] Comment on above: Performed By: #### L [id number] #### [place] [id number] Glucose [Mass/Vol] 112 mg/dL High 70-99 [facility] Comment on above: Performed By: #### L [id number] #### [place] [id number] Potassium [Moles/Vol] 3.7 mmol/L Normal 3.4-5.3 [facility] Comment on above: Performed By: #### L [id number] #### [place] [id number] Sodium [Moles/Vol] 136 mmol/L Normal 135-148 [facility] Comment on above: Performed By: #### L [id number] #### [place] [id number] Urea nitrogen [Mass/Vol] 10 mg/dL Normal 3-29 [facility] Comment on above: Performed By: #### L [id number] #### [place] [id number] Urea nitrogen/Creatinine [Mass ratio] 17 mg/mg Normal - [facility] Comment on above: Performed By: #### L [id number] #### [place] [address] Anion gap [Moles/Vol] 13 mmol/L 5 - 15 [facility] Calcium [Mass/Vol] 9.5 mg/dL 8.5 - 10.5 mg/dL [facility] Chloride [Moles/Vol] 101 mmol/L [facility] CO2 [Moles/Vol] 22 mmol/L [facility] Creatinine [Mass/Vol] 0.6 mg/dL 0.5 - 1.2 mg/dL [facility] GFR/1.73 sq M.predicted among blacks MDRD (S/P/Bld) [Vol rate/Area] 126 mL/min/{1.73_m2} - PINF [facility] Glucose [Mass/Vol] 112 mg/dL High 70 - 99 mg/dL [facility] Interpretation and review of laboratory results Abnormal [facility] Potassium [Moles/Vol] 3.7 mmol/L [facility] Sodium [Moles/Vol] 136 mmol/L [facility] Urea nitrogen [Mass/Vol] 10 mg/dL 3 - 29 mg/dL [facility] Urea nitrogen/Creatinine [Mass ratio] 17 mg/mg - [facility] COMPLETE BLOOD COUNT WITH DI FFERENTIALon 04-23-2022 BASOPHILS ABSOLUTE COUNT (10*3/UL) BY AUTOMATED COUNT 0.0 K/uL Normal 0.0-0.3 [facility] Comment on above: Performed By: #### L [id number] #### [place] [address] BASOPHILS RELATIVE PERCENT BY AUTOMATED COUNT 0.1 % Normal 0.0-2.0 [facility] Comment on above: Performed By: #### L [id number] #### [place] [address] Eosinophils (Bld) [#/Vol] 0.0 10*3/uL Normal 0.0-0.5 [facility] Comment on above: Performed By: #### L [id number] #### [place] [address] EOSINOPHILS RELATIVE PERCENT BY AUTOMATED COUNT 0.1 % Normal 0.0-5.0 [facility] Comment on above: Performed By: #### L [id number] #### [place] [address] Erythrocyte distribution width (RBC) [Ratio] 11.8 % Normal <=15.0 [facility] Comment on above: Performed By: #### L [id number] #### [place] [address] Hematocrit (Bld) [Volume fraction] 42.8 % Normal 34.0-49.0 [facility] Comment on above: Performed By: #### L [id number] #### [place] [id number] Hemoglobin (Bld) [Mass/Vol] 15.1 g/dL Normal 11.2-15.7 [facility] Comment on above: Performed By: #### L [id number] #### [place] [id number] Immature granulocytes (Bld) [#/Vol] 0.0 10*3/uL Normal 0.0-0.1 [facility] Comment on above: Performed By: #### L [id number] #### [place] [address] Immature granulocytes/100 WBC (Bld) 0.2 % Normal <1.0 [facility] Comment on above: Performed By: #### L [id number] #### [place] [id number] LYMPHOCYTES ABSOLUTE COUNT (10*3/UL) BY AUTOMATED COUNT 0.5 K/uL Low 0.9-4.1 [facility] Comment on above: Performed By: #### L [id number] #### [place] [id number] LYMPHOCYTES RELATIVE PERCENT BY AUTOMATED COUNT 4.5 % Low 14.0-51.0 [facility] Comment on above: Performed By: #### L [id number] #### [place] [address] MCH (RBC) [Entitic mass] 31.9 pg Normal 26.0-34.0 [facility] Comment on above: Performed By: #### L [id number] #### [place] [address] MCHC (RBC) [Mass/Vol] 35.3 g/dL Normal 30.7-35.5 [facility] Comment on above: Performed By: #### L [id number] #### [place] [address] MCV (RBC) [Entitic vol] 90.5 fL Normal 80.0-100.0 [facility] Comment on above: Performed By: #### L [id number] #### [place] [address] MEAN PLATELET VOLUME (FL) BY AUTOMATED COUNT 9.1 fL Normal 7.2-11.7 [facility] Comment on above: Performed By: #### L [id number] #### [place] [address] MONOCYTES ABSOLUTE COUNT (10*3/UL) BY AUTOMATED COUNT 0.4 K/uL Normal 0.2-1.0 [facility] Comment on above: Performed By: #### L [id number] #### [place] [address] MONOCYTES RELATIVE PERCENT BY AUTOMATED COUNT 3.6 % Low 4.0-12.0 [facility] Comment on above: Performed By: #### L [id number] #### [place] [address] NEUTROPHILS ABSOLUTE COUNT (10*3/UL) BY AUTOMATED COUNT 9.7 K/uL High 1.8-7.5 [facility] Comment on above: Performed By: #### L [id number] #### [place] [address] NEUTROPHILS RELATIVE PERCENT BY AUTOMATED COUNT 91.5 % High 42.0-80.0 [facility] Comment on above: Performed By: #### L AB119 #### [place] [address] PLATELETS (10*3/UL) BY AUTOMATED COUNT 291 K/uL Normal 140-400 [facility] Comment on above: Performed By: #### L [id number] #### [place] [address] RBC (Bld) [#/Vol] 4.73 10*6/uL Normal 3.95-5.26 [facility] Comment on above: Performed By: #### L [id number] #### [place] [address] WBC (Bld) [#/Vol] 10.6 10*3/uL Normal 3.5-10.9 [facility] Comment on above: Performed By: #### L [id number] #### [place] [address] Basophils (Bld) [#/Vol] 0.0 10*3/uL 0.0 - 0.3 K/uL [facility] Basophils/100 WBC (Bld) 0.1 % 0.0 - 2.0 % [facility] Eosinophils (Bld) [#/Vol] 0.0 10*3/uL 0.0 - 0.5 K/uL [facility] Eosinophils/100 WBC (Bld) 0.1 % 0.0 - 5.0 % [facility] Erythrocyte distribution width (RBC) [Ratio] 11.8 % NINF - 15.0 % [facility] Hematocrit (Bld) [Volume fraction] 42.8 % 34.0 - 49.0 % [facility] Hemoglobin (Bld) [Mass/Vol] 15.1 g/dL 11.2 - 15.7 g/dL [facility] Immature granulocytes (Bld) [#/Vol] 0.0 10*3/uL 0.0 - 0.1 K/uL [facility] Immature granulocytes/100 WBC (Bld) 0.2 % NINF - 1.0 % [facility] Interpretation and review of laboratory results Abnormal [facility] Lymphocytes (Bld) [#/Vol] 0.5 10*3/uL [...] 3.6 % Low 4.0 - 12.0 % [facility] Neutrophils (Bld) [#/Vol] 9.7 10*3/uL High 1.8 - 7.5 K/uL [facility] Neutrophils/100 WBC (Bld) 91.5 % High 42.0 - 80.0 % [facility] Platelet mean volume (Bld) [Entitic vol] 9.1 fL 7.2 - 11.7 fL [facility] Platelets (Bld) [#/Vol] 291 10*3/uL 140 - 400 K/uL [facility] RBC (Bld) [#/Vol] 4.73 10*6/uL [facility] WBC corrected for nucl RBC Auto (Bld) [#/Vol] 10.6 K/uL 3.5 - 10.9 K/uL [facility] HEPATIC FUNCTION PANELon Albumin [Mass/Vol] 4.4 g/dL Normal 3.5-5.2 [facility] Comment on above: Performed By: #### L [id number] ####[place] [phone] ALP [Catalytic activity/Vol] 55 U/L Normal 23-144 [facility] Comment on above: Performed By: #### L [id number] ####[place] [phone] ALT [Catalytic activity/Vol] 12 U/L Normal 0-60 [facility] Comment on above: Performed By: #### L [id number] ####[place] [phone] AST [Catalytic activity/Vol] 17 U/L Normal 0-46 [facility] Comment on above: Performed By: #### L [id number] ####[place] [phone] Bilirubin [Mass/Vol] 0.6 mg/dL Normal 0.0-1.2 [facility] Comment on above: Performed By: #### L [id number] ####[place] [phone] BILIRUBIN, DIRECT < Normal 0.0-0.4 [facility] Comment on above: Performed By: #### L [id number] ####[place] [phone] BILIRUBIN, INDIRECT Normal [facility] Comment on above: Result Comment: Unab le to calculate. Performed By: #### L [id number] ####[place] [phone] Protein [Mass/Vol] 7.3 g/dL Normal 6.0-8.3 [facility] Comment on above: Performed By: #### L [id number] ####[place] [phone] Albumin [Mass/Vol] 4.4 g/dL 3.5 - 5.2 g/dL [facility] ALP [Catalytic activity/Vol] 55 U/L 23 - 144 U/L [facility] ALT [Catalytic activity/Vol] 12 U/L 0 - 60 U/L [facility] AST [Catalytic activity/Vol] 17 U/L 0 - 46 U/L [facility] Bilirubin [Mass/Vol] 0.6 mg/dL 0.0 - 1.2 mg/dL [facility] [facility] Bilirubin.direct [Mass/Vol] mg/dL 0.0 - 0.4 mg/dL [facility] Bilirubin.indirect [Mass/Vol] [facility] Comment on above: Unable to calculate. Protein [Mass/Vol] 7.3 g/dL 6.0 - 8.3 g/dL Pr [facility] LIPASEon 04-23-2022 Lipase [Catalytic activity/Vol] 27 U/L Normal 0-60 [facility] Comment on above: Performed By: #### L [id number] ####[place] [phone] Interpretation and review of laboratory results [facility] [Catalytic activity/Vol] 27 U/L 0 - 60 U/L [facility] No Panel Informationon 04-23 [facility] Vital Signs Date Time Vital Sign Value Performing Clinician Faci lity 03-14-2025 10:07-0400 Body mass index (BMI) [Ratio] 29.29 kg/m2 Khadra Mancini APRN.CNM Work Phone: [facility] 03-14-2025 10:07-0400 Body weight 70.31 kg Khadra Mancini APRN.CNM Work Phone: [facility] 03-14-2025 10:07-0400 Diastolic blood pressure 82 mm[Hg] Khadra Mancini APRN.CNM Work Phone: [facility] 03-14-2025 10:07-0400 Systolic blood pressure 114 mm[Hg] Khadra Mancini APRN.CNM Work Phone: [facility] 03-13-2025 01:59-0400 Body height 157.48 cm No Primary Care Physician [facility] 03-13-2025 01:59-0400 Body mass index (BMI) [Ratio] 28.7 kg/m2 No Primary Care Physician [facility] 03-13-2025 01:59-0400 Body weight 71.21 kg No Primary Care Physician [facility] 03-13-2025 01:55-0400 Diastolic blood pressure 77 mm[Hg] No Primary Care Physician [facility] 03-13-2025 01:55-0400 Heart rate 83 /min No Primary Care Physician [facility] 03-13-2025 01:55-0400 Systolic blood pressure 108 mm[Hg] No Primary Care Physician [facility] 03-13-2025 01:54-0400 SaO2% (BldA) [Mass fraction] 97 % No Primary Care Physician [facility] 03-13-2025 01:49-0400 Body temperature 97.9 [degF] No Primary Care Physician [facility] 03-13-2025 01:49-0400 Respiratory rate 16 /min No Primary Care Physician [facility] 03-11-2025 10:33-0400 Body mass index (BMI) [Ratio] 29.48 kg/m2 Khadra Mancini APRN.CNM Work Phone: [facility] 03-11-2025 10:33-0400 Body weight 70.76 kg Khadra Mancini APRN.CNM Work Phone: [facility] 03-11-2025 10:33-0400 Diastolic blood pressure 62 mm[Hg] Khadra Mancini APRN.CNM Work Phone: [facility] 03-11-2025 10:33-0400 Systolic blood pressure 110 mm[Hg] Khadra Mancini APRN.CNM Work Phone: [facility] 03-07-2025 13:14-0400 Body mass index (BMI) [Ratio] 29.78 kg/m2 Annie Thakur APRN.CNM Work Phone: [facility] 03-07-2025 13:14-0400 Body weight 71.49 kg Annie Thakur APRN.CNM Work Phone: [facility] 03-07-2025 13:14-0400 Diastolic blood pressure 64 mm[Hg] Annie Thakur APRN.CNM Work Phone: [facility] 03-07-2025 13:14-0400 Systolic blood pressure 118 mm[Hg] Annie Thakur CARDIOPULMONARY SPECIALIST.CNM Work Phone: [facility] 03-05-2025 09:02-0400 Body mass index (BMI) [Ratio] 29.4 kg/m2 Annie Michaelts CARDIOPULMONARY SPECIALIST.CNM Work Phone: [facility] 03-05-2025 09:02-0400 Body weight 70.58 kg Annie Thakur CARDIOPULMONARY SPECIALIST.CNM Work Phone: [facility] 03-05-2025 09:02-0400 Diastolic blood pressure 64 mm[Hg] Annie Thakur CARDIOPULMONARY SPECIALIST.CNM Work Phone: [facility] 03-05-2025 09:02-0400 Systolic blood pressure 110 mm[Hg] Annie Thakur CARDIOPULMONARY SPECIALIST.CNM Work Phone: [facility] 02-25-2025 08:05-0400 Body mass index (BMI) [Ratio] 28.91 kg/m2 Khadra Mancini CARDIOPULMONARY SPECIALIST.CNM Work Phone: [facility] 02-25-2025 08:05-0400 Body weight 69.4 kg Khadra Mancini CARDIOPULMONARY SPECIALIST.CNM Work Phone: [facility] 02-25-2025 08:05-0400 Diastolic blood pressure 68 mm[Hg] Khadra Mancini CARDIOPULMONARY SPECIALIST.CNM Work Phone: [facility] 02-25-2025 08:05-0400 Systolic blood pressure 108 mm[Hg] Khadra Mancini CARDIOPULMONARY SPECIALIST.CNM Work Phone: [facility] 02-11-2025 08:47-0400 Body mass index (BMI) [Ratio] 28.15 kg/m2 Chinyere Lehman MD Work Phone: [facility] 02-11-2025 08:47-0400 Body weight 67.59 kg Chinyere Lehman MD Work Phone: [facility] 02-11-2025 08:47-0400 Diastolic blood pressure 62 mm[Hg] Chinyeer Lehman MD Work Phone: [facility] 02-11-2025 08:47-0400 Systolic blood pressure 98 mm[Hg] Chinyere Lehman MD Work Phone: [facility] 01-28-2025 08:38-0400 Body mass index (BMI) [Ratio] 27.59 kg/m2 Arthur Conklin MD Work Phone: [facility] 01-28-2025 08:38-0400 Body weight 66.22 kg Arthur Conklin MD Work Phone: [facility] 01-28-2025 08:38-0400 Diastolic blood pressure 60 mm[Hg] Arthur Conklin MD Work Phone: [facility] 01-28-2025 08:38-0400 Systolic blood pressure 98 mm[Hg] Arthur Conklin MD Work Phone: [facility] 01-14-2025 08:04-0400 Body mass index (BMI) [Ratio] 27.21 kg/m2 Khadra Mancini APRN.CNM Work Phone: [facility] 01-14-2025 08:04-0400 Body weight 65.32 kg Khadra Live TURNERN.CNM Work Phone: [facility] 01-14-2025 08:04-0400 Diastolic blood pressure 70 mm[Hg] Khadra Live TURNERN.CNM Work Phone: [facility] 01-14-2025 08:04-0400 Systolic blood pressure 116 mm[Hg] Khadra Live TURNERN.CNM Work Phone: [facility] 12-31-2024 08:07-0400 Body mass index (BMI) [Ratio] 26.83 kg/m2 Khadramignon Mancini APRN.CNM Work Phone: [facility] 12-31-2024 08:07-0400 Body weight 64.41 kg Khadra Live MORE.CNM Work Phone: [facility] 12-31-2024 08:07-0400 Diastolic blood pressure 62 mm[Hg] Khadra Mancini CARDIOPULMONARY SPECIALIST.CNM Work Phone: [facility] 12-31-2024 08:07-0400 Systolic blood pressure 98 mm[Hg] Khadra Mancini CARDIOPULMONARY SPECIALIST.CNM Work Phone: [facility] 12-17-2024 09:57-0400 Body mass index (BMI) [Ratio] 26.64 kg/m2 Khadra Mancini CARDIOPULMONARY SPECIALIST.CNM Work Phone: [facility] 12-17-2024 09:57-0400 Body weight 63.96 kg Khadra Mancini CARDIOPULMONARY SPECIALIST.CNM Work Phone: [facility] 12-17-2024 09:57-0400 Diastolic blood pressure 62 mm[Hg] Khadra Mancini CARDIOPULMONARY SPECIALIST.CNM Work Phone: [facility] 12-17-2024 09:57-0400 Systolic blood pressure 100 mm[Hg] Khadra Mancini CARDIOPULMONARY SPECIALIST.CNM Work Phone: [facility] 11-19-2024 11:23-0400 Body mass index (BMI) [Ratio] 26.07 kg/m2 Khadra Mancini CARDIOPULMONARY SPECIALIST.CNM Work Phone: [facility] 11-19-2024 11:23-0400 Body weight 62.6 kg Khadra Mancini CARDIOPULMONARY SPECIALIST.CNM Work Phone: [facility] 11-19-2024 11:23-0400 Diastolic blood pressure 62 mm[Hg] Khadra Mancini CARDIOPULMONARY SPECIALIST.CNM Work Phone: [facility] 11-19-2024 11:23-0400 Systolic blood pressure 104 mm[Hg] Khadra Mancini CARDIOPULMONARY SPECIALIST.CNM Work Phone: [facility] 10-23-2024 09:41-0400 Body mass index (BMI) [Ratio] 25.32 kg/m2 Annie Thakur CARDIOPULMONARY SPECIALIST.CNM Work Phone: [facility] 10-23-2024 09:41-0400 Body weight 60.78 kg Annie Plotchapincito CARDIOPULMONARY SPECIALIST.CNM Work Phone: [facility] 10-23-2024 09:41-0400 Diastolic blood pressure 64 mm[Hg] Annie Plotts CARDIOPULMONARY SPECIALIST.CNM Work Phone: [facility] 10-23-2024 09:41-0400 Systolic blood pressure 112 mm[Hg] Annie Plotts CARDIOPULMONARY SPECIALIST.CNM Work Phone: [facility] 09-24-2024 09:35-0400 Body mass index (BMI) [Ratio] 24.75 kg/m2 Khadra Mancini CARDIOPULMONARY SPECIALIST.CNM Work Phone: [facility] 09-24-2024 09:35-0400 Body weight 59.42 kg Khadra Mancini CARDIOPULMONARY SPECIALIST.CNM Work Phone: [facility] 09-24-2024 09:35-0400 Diastolic blood pressure 66 mm[Hg] Khadra Mancini CARDIOPULMONARY SPECIALIST.CNM Work Phone: [facility] 09-24-2024 09:35-0400 Systolic blood pressure 108 mm[Hg] Khadra Mancini CARDIOPULMONARY SPECIALIST.CNM Work Phone: [facility] 08-28-2024 09:42-0500 Body mass index (BMI) [Ratio] 24.19 kg/m2 Annie Plotts CARDIOPULMONARY SPECIALIST.CNM Work Phone: [facility] 08-28-2024 09:42-0500 Body weight 58.06 kg Annie Plotts CARDIOPULMONARY SPECIALIST.CNM Work Phone: [facility] 08-28-2024 09:42-0500 Diastolic blood pressure 68 mm[Hg] Annie Plotts CARDIOPULMONARY SPECIALIST.CNM Work Phone: [facility] 08-28-2024 09:42-0500 Systolic blood pressure 110 mm[Hg] Annie Plotts CARDIOPULMONARY SPECIALIST.CNM Work Phone: [facility] 07-31-2024 08:40-0500 Body mass index (BMI) [Ratio] 23.51 kg/m2 Annie Thakur CARDIOPULMONARY SPECIALIST.CNM Work Phone: [facility] 07-31-2024 08:40-0500 Body weight 56.43 kg Annie Thakur CARDIOPULMONARY SPECIALIST.CNM Work Phone: [facility] 07-31-2024 08:40-0500 Diastolic blood pressure 60 mm[Hg] Annie Thakur CARDIOPULMONARY SPECIALIST.CNM Work Phone: [facility] 07-31-2024 08:40-0500 Systolic blood pressure 122 mm[Hg] Annie Thakur CARDIOPULMONARY SPECIALIST.CNM Work Phone: [facility] 04-23-2022 14:16-0400 Body height 157.5 cm Joslyn Panda MD Work Phone: [facility] [employer] 04-23-2022 14:16-0400 Body mass index (BMI) [Ratio] 21.22 kg/m2 Joslyn Panda MD Work Phone: [employer] 04-23-2022 14:16-0400 Body temperature 98.6 [degF] Joslyn Panda MD Work Phone: [employer] 04-23-2022 14:16-0400 Body weight 52.62 kg Joslyn Panda MD Work Phone: [employer] 04-23-2022 14:16-0400 Diastolic blood pressure 82 mm[Hg] Joslyn Panda MD Work Phone: [employer] 04-23-2022 14:16-0400 Heart rate 117 /min Joslyn Panda MD Work Phone: [employer] 04-23-2022 14:16-0400 Respiratory rate 18 /min Joslyn Panda MD Work Phone: [employer] 04-23-2022 14:16-0400 SaO2% (BldA) [Mass fraction] 97 % Joslyn Panda MD Work Phone: [employer] 04-23-2022 14:16-0400 Systolic blood pressure 129 mm[Hg] Joslyn Panda MD Work Phone: [facility] Encounters Encounter Date Encounter Type Care Provider Facility Start: 03-14-2025 End: 03-14-2025 Patient encounter procedure Whi Tech 1 [employer] [facility]aternal [facility] Comment on above: Post-term , 40-42 weeks of gestation (HCC) (Primary Dx); 40 weeks gestation of (HCC) Encounter for superv ision of other normal in third trimester (HCC) (Primary Dx); 40 weeks gestation of (HCC); Multiparity Start: 03-13-2025 End: 03-13-2025 ambulatory No Primary Care Physician [facility] Start: 03-13-2025 End: 03-13-[address] [facility] Enamorado [facility] Work Phone: Start: 03-12-2025 End: 03-12-2025 Telephone encounter Chinyere Lehman MD Work Phone: OB/Gynecology Comment on above: OB Contractions Start: 03-11-2025 End: 03-11-2025 Patient encounter procedure Khadra Live CARDIOPULMONARY SPECIALIST.CNM Work Phone: OB/Gynecology Comment on above: Encounter for superv ision of other normal in third trimester (HCC) (Primary Dx); 40 weeks gestation of (HCC); Multiparity Start: 03-11-2025 End: 03-11-2025 ambulatory KHADRA MANCINI Facility:[facility] Start: 03-07-2025 End: 03-07-2025 Telephone encounter Annie Thakur CARDIOPULMONARY SPECIALIST.CNM Work Phone: OB/Gynecology Start: 03-07-2025 End: 03-07-2025 Patient encounter procedure Annie Thakur CARDIOPULMONARY SPECIALIST.CNM Work Phone: OB/Gynecology Comment on above: 39 weeks gestation o f (HCC) (Primary Dx); Encounter for supervision of other normal in third trimester (HCC) Start: 03-07-2025 End: 03-07-2025 ambulatory ANNIE THAKUR Facility:[facility] Start: 03-05-2025 End: 03-05-2025 Patient encounter procedure Annie Thakur CARDIOPULMONARY SPECIALIST.HUM Work Phone: OB/Gynecology Comment on above: 39 weeks gestation o f (HCC) (Primary Dx); Encounter for supervision of other normal in third trimester (HCC) Start: 03-05-2025 End: 03-05-2025 ambulatory ANNIE SHAISTA Facility:[facility] Start: 02-25-2025 End: 02-25-2025 Patient encounter procedure Khadra Mancini APRN.CNM Work Phone: OB/Gynecology Comment on above: Encounter for superv ision of other normal in third trimester (HCC) (Primary Dx); 38 weeks gestation of (HCC) Population Health Na vigation Outreach (Ob/peds) Start: 02-25-2025 End: 02-25-2025 ambulatory Niru Casarez MA [facility] [place] Start: 02-18-2025 End: 02-18-2025 ambulatory KHADRA MANCINI Facility:[facility] Start: 02-11-2025 End: 02-11-2025 Patient encounter procedure Chinyere Lehman MD Work Phone: OB/Gynecology Comment on above: Encounter for superv ision of other normal in third trimester (HCC) (Primary Dx); 36 weeks gestation of (HCC) Start: 02-11-2025 End: 02-11-2025 ambulatory CHINYERE LEHMAN Facility:[facility] Start: 01-28-2025 End: 01-29-2025 Telephone encounter Arthur Conklin MD Work Phone: OB/Gynecology Comment on above: Question (OB Questio n) Start: 01-28-2025 End: 01-28-2025 ambulatory ARTHUR CONKLIN Facility:[facility] Start: 01-28-2025 End: 01-28-2025 Patient encounter procedure Arthur Conklin MD Work Phone: OB/Gynecology Comment on above: Encounter for superv ision of other normal in third trimester (HCC) (Primary Dx); 34 weeks gestation of (HCC) Start: 01-14-2025 End: 01-14-2025 ambulatory KHADRA MANCINI Facility:[facility] Start: 01-14-2025 End: 01-14-2025 Patient encounter procedure Khadra Mancini APRN.CNM Work Phone: OB/Gynecology Comment on above: Encounter for superv ision of other normal in third trimester (HCC) (Primary Dx); 32 weeks gestation of (HCC) Start: 01-01-2025 End: 01-01-2025 Telephone encounter Nica Uriarte RN Maternal Medicine Comment on above: Sr Community Manager - O ther (PRAF) Start: 12-31-2024 End: 12-31-2024 ambulatory [facility] Facility:[facility] Start: 12-31-2024 End: 12-31-2024 Patient encounter procedure [...] of (HCC) Start: 12-17-2024 End: 12-17-2024 ambulatory [facility] Facility:[facility] Start: 11-19-2024 End: 11-19-2024 Patient encounter procedure Khadra Mancini APRN.MARCELA Work Phone: OB/Gynecology Comment on above: Encounter for superv ision of other normal in second trimester (HCC) (Primary Dx); 24 weeks gestation of (HCC); Screening for diabetes mellitus Start: 11-19-2024 End: 11-19-2024 ambulatory [facility] Facility:[facility] Start: 10-24-2024 End: 10-24-2024 Telephone encounter Nica Uriarte RN Maternal Medicine Comment on above: Sr Community Manager - O ther (PRAF) Start: 10-23-2024 End: 10-23-2024 [facility] Start: 10-23-2024 End: 10-23-2024 Patient encounter procedure Annie Thakur CARDIOPULMONARY SPECIALIST.CNCandice Work Phone: OB/Gynecology Comment on above: 20 weeks gestation o f (HCC) (Primary Dx); Encounter for supervision of other normal in second trimester (HCC); Encounter for supervision of normal in multigravida ([facility]) Start: 10-23-2024 End: 10-23-2024 ambulatory [facility] Facility:[facility] Start: 10-23-2024 End: 10-23-2024 Patient encounter procedure Whi Tech 1 [employer] [facility] Comment on above: Encounter for anatomic survey (HCC) (Primary Dx); 20 weeks gestation of ([facility]) Start: 09-24-2024 End: 09-24-2024 ambulatory KHADRA LIVE Facility:[facility] Start: 09-24-2024 End: 09-24-2024 Patient encounter procedure Khadra Live CARDIOPULMONARY SPECIALIST.CNCandice Work Phone: OB/Gynecology Comment on above: Encounter for superv ision of other normal in second trimester (Primary Dx); 16 weeks gestation of Start: 08-29-2024 End: 10-29-2024 Follow-up encounter Annie Thakur APRN.MARCELA Work Phone: OB/Gynecology Start: 08-28-2024 End: 08-28-2024 [facility]ulatory [facility] Start: 08-28-2024 End: 08-28-2024 Patient encounter procedure Annie Thakur CARDIOPULMONARY SPECIALIST.CNM Work Phone: OB/Gynecology Comment on above: 12 weeks gestation o f (Primary Dx); Encounter for supervision of other normal in second trimester; Multiparity Encounter for antena tony screening for malformation using ultrasound (Primary Dx); 12 weeks gestation of ; Encounter for (NT) nuchal translucency scan Start: 08-01-2024 End: 08-01-2024 Telephone encounter Nurse Inspector [employer] Ej Lee Work Phone: Obstetrics/Gynecology Comment on above: PRAF Start: 07-31-2024 End: 07-31-2024 ambulatory ANNIE THAKUR Facility:[facility] Start: 07-31-2024 End: 07-31-2024 Patient encounter procedure Annie Thakur CARDIOPULMONARY SPECIALIST.CNM Work Phone: OB/Gynecology Comment on above: Encounter for superv ision of normal in multigravida (Primary Dx); 8 weeks gestation of ; Multiparity Start: 07-27-2024 End: 07-29-2024 Refill Ling Castañedah Luke CARDIOPULMONARY SPECIALIST-SALES AND MARKETING ENGINEER Work Phone: [facility] Comment on above: Encounter for initia l prescription of vaginal ring hormonal contraceptive Start: 10-25-2023 End: 10-25-2023 ambulatory Ling Daly [facility] Start: 07-27-2023 End: 07-27-2023 ambulatory MARYANN [facility] Start: 01-16-2023 End: 01-16-2023 ambulatory MARYANN [facility] Start: 01-16-2023 Encounter for genera l adult medical examination without abnormal findings LING DALY [facility] Start: 11-17-2022 End: 11-19-2022 Evaluation and management of [facility] Start: 11-09-2022 End: 11-09-2022 ambulatory MARYANN MATHIAS Provider Locations Start: 11-02-2022 End: 11-02-2022 ambulatory MAX LAU Provider Locations Start: 10-26-2022 End: 10-26-2022 ambulatory MARYANN MATHIAS Provider Locations Start: 10-12-2022 End: 10-12-2022 ambulatory HERNESTO PATHAK Provider Locations Start: 09-28-2022 End: 09-28-2022 ambulatory SAMANTHA LAW Provider Locations Start: 09-12-2022 End: 09-12-2022 ambulatory MARYANN MATHIAS Provider Locations Start: 08-31-2022 End: 08-31-2022 ambulatory MARYANN MATHIAS Provider Locations Start: 08-02-2022 End: 08-02-2022 ambulatory MARYANN MATHIAS Provider Locations Start: 06-30-2022 End: 06-30-2022 ambulatory DOMONIQUE CORCORAN NINO Provider Locations Start: 06-30-2022 ambulatory ALBERTA NOEL [facility] Start: 05-25-2022 ambulatory MARYANN MATHIAS [facility] er Locations Start: 04-23-2022 End: 04-23-2022 Emergency department patient visit JOSLYN PANDA [facility] Start: 04-23-2022 End: 04-23-2022 Emergency department patient visit Joslyn Panda MD Work Phone: [facility] Start: 04-12-2022 End: 04-12-2022 ambulatory MARYANN MATHIAS Provider Locations Procedures Date Procedure Procedure Detail Performing Clinician Start: 03-14-2025 Us preg uterus after 1st trimest 07/17 gestation Khadra Mancini CARDIOPULMONARY SPECIALIST.CNM Work Phone: Start: 03-14-2025 Urnls dip stick/tabl et rgnt non-auto w/o micrscp Khadra Live CARDIOPULMONARY SPECIALIST.CNM Work Phone: Start: 03-11-2025 Urnls dip stick/tabl et rgnt non-auto w/o micrscp Khadra Live CARDIOPULMONARY SPECIALIST.CNM Work Phone: Start: 03-07-2025 Urnls dip stick/tabl et rgnt non-auto w/o micrscp Annie Plotts CARDIOPULMONARY SPECIALIST.CNM Work Phone: Start: 03-05-2025 Urnls dip stick/tabl et rgnt non-auto w/o micrscp Annie Plotts CARDIOPULMONARY SPECIALIST.CNM Work Phone: Start: 02-25-2025 Urnls dip stick/tabl et rgnt non-auto w/o micrscp Khadra Mancini CARDIOPULMONARY SPECIALIST.CNM Work Phone: Start: 02-11-2025 Urnls dip stick/tabl et rgnt non-auto w/o micrscp Chinyere Lehman MD Work Phone: Start: 10-23-2024 Us preg uterus after 1st trimest 1/ gestation Annie Thakur CARDIOPULMONARY SPECIALIST.CNM Work Phone: Start: 08-28-2024 Us preg uterus after 1st trimest 1/ gestation Annie Thakur CARDIOPULMONARY SPECIALIST.CNM Work Phone: Start: 07-31-2024 Antibody screen KYRA THAKUR Comment on above: Order Comment: Speci men Type: BLOOD SPECIMEN Ordering Facility: [facility] Address: [address] [place] [address] Performed By: #### T SPN #### [facility] CLIA [id number] [address] [place] [address] [place] Start: 07-31-2024 Us uterus l imited 1/> fetuses Annie Thakur CARDIOPULMONARY SPECIALIST.CNM Work Phone: Start: 05-24-2022 Antibody screen SAMANTHA [place] Start: 04-23-2022 Basic metabolic 2000 panel [...] ant neoplasm of cervix Cervical Cancer Screening [facility] Start: 07-31-2027 Screening for malign ant neoplasm of cervix Cervical Cancer Screening [facility] Start: 03-18-2025 End: 03-18-2025 Patient encounter procedure OB/Gynecology Comment on above: NST NST only Start: 03-17-2025 Influenza vaccination C [facility] Start: 03-14-2025 End: 03-14-2025 Patient encounter procedure Maternal Medicine Comment on above: Growth Sweep Start: 03-13-2025 Nonstress test [facility] Start: 03-13-2025 Obstetric monitoring [facility] Start: 03-13-2025 Vital signs measurements [facility] Start: 03-13-2025 [facility] Start: 03-13-2025 Patient discharge [facility] Start: 03-11-2025 End: 03-11-2025 Patient encounter procedure 03/11/2025 10:30 AM EDT Routine Office Visit OB/Gynecology [address] [place] [address] Khadra Mancnii APRN.CN [address] [place] [address] OB OB/Gynecology Comment on above: OB Start: 03-07-2025 End: 03-07-2025 Patient encounter procedure 03/07/2025 1:15 PM EDT Routine Office Visit OB/Gynecology [address] [place] [address] Annie Thakur APRN.CN [address] [place] [address] membrane sweep/OK per CP OB/Gynecology Comment on above: membrane sweep/OK pe r CP Start: 03-05-2025 End: 03-05-2025 Patient encounter procedure 03/05/2025 9:00 AM EDT Routine Office Visit OB/Gynecology [address] [place] [id number] Annie Thakur APRN.CNCandice [address] [place] [address] OB OB/Gynecology Comment on above: OB Start: 02-25-2025 End: 02-25-2025 Patient encounter procedure 02/25/2025 8:00 AM EDT Routine Office Visit OB/Gynecology [address] [place] [address] Khadra Mancini APRN.CNCandice [address] [place] [address] OB OB/Gynecology Comment on above: OB Start: 02-18-2025 End: 02-18-2025 Patient encounter procedure 02/18/2025 10:30 AM EDT Routine Office Visit OB/Gynecology [address] [place] [address] Khadra Mancini APRN.CNM [address] [place] [address] OB OB/Gynecology Comment on above: OB Start: 02-11-2025 End: 02-11-2025 Patient encounter procedure 02/11/2025 8:40 AM EDT Routine Office Visit OB/Gynecology [address] [place] [address] Chinyere Friend MD [address] [place] [address] OB OB/Gynecology Comment on above: OB Start: 01-28-2025 End: 01-28-2025 Patient encounter procedure 01/28/2025 8:30 AM EDT Routine Office Visit OB/Gynecology [address] [place] [address] Arthur Conklin MD [address] [place] [address] OB OB/Gynecology Comment on above: OB Start: 01-14-2025 End: 01-14-2025 Patient encounter procedure 01/14/2025 8:00 AM EDT Routine Office Visit OB/Gynecology [address] [place] [address] Khadra Mancini APRN.CNM [address] [place] [address] OB OB/Gynecology Comment on above: OB Start: 12-31-2024 End: 12-31-2024 Patient encounter procedure 12/31/2024 8:00 AM EDT Routine Office Visit OB/Gynecology [address] [place] [address] Khadra Mancini APRN.CNM [address] [place] [address] OB OB/Gynecology Comment on above: OB Start: 12-17-2024 End: 12-17-2024 Patient encounter procedure 12/17/2024 10:00 AM EDT Routine Office Visit OB/Gynecology [address] [place] [address] Khadra Mancini APRN.CNM [address] [place] [address] OB OB/Gynecology Comment on above: OB Start: 12-17-2024 End: 12-17-2024 ambulatory 12/17/2024 9:45 AM EDT Results Only Kaylan Antonywn [facility] [address] [place] [address] Glucose Test [facility] Comment on above: Glucose Test Start: 11-19-2024 End: 02-18-2025 ANEMIA REFLEX PANEL ANEMIA REFLEX PANEL Lab Routine Screening for diabetes mellitus Expected: 11/19/2024, Expires: 02/18/2025 [facility] Comment on above: Expected: 11/19/2024 , Expires: 02/18/2025 Start: 11-19-2024 End: 11-19-2025 GESTATIONAL GLUCOSE SCREEN, 1-HOUR, 50 GRAM, NON-FASTING GESTATIONAL GLUCOSE SCREEN, 1-HOUR, 50 GRAM, NON-FASTING Lab Routine Screening for diabetes mellitus Expected: 11/19/2024, Expires: 11/19/2025 [facility] Work Phone: Comment on above: Expected: 11/19/2024 , Expires: 11/19/2025 Start: 11-19-2024 End: 11-19-2025 SYPHILIS TREPONEMAL W/REFLEX SYPHILIS TREPONEMAL W/REFLEX Lab Routine Screening for diabetes mellitus Expected: 11/19/2024, Expires: 11/19/2025 [facility] Comment on above: Expected: 11/19/2024 , Expires: 11/19/2025 Start: 11-19-2024 End: 11-19-2024 Patient encounter procedure 11/19/2024 11:15 AM EDT Routine Office Visit OB/Gynecology [address] [place] [address] Khadra Mancini APRN.CNM [address] [place] [address] OB OB/Gynecology Comment on above: OB Start: 10-23-2024 End: 10-23-2024 Patient encounter procedure 10/23/2024 9:45 AM EDT Routine Office Visit OB/Gynecology [address] [place] [address] Annie Thakur APRN.CNCandice [address] [place] [address] Anatomy/OB OB/Gynecology Comment on above: Anatomy/OB Start: 10-23-2024 End: 10-23-2024 Patient encounter procedure 10/23/2024 8:30 AM EDT Routine Office Visit Maternal Medicine [address] [place] [address] Anatomy/OB Maternal Medicine Comment on above: Anatomy/OB Start: 09-24-2024 End: 09-24-2024 Patient encounter procedure 09/24/2024 9:45 AM EDT Routine Office Visit OB/Gynecology [address] [place] [address] Khadra Mancini APRN.CNM [address] [place] [address] OB Routine OB/Gynecology Comment on above: OB Routine Start: 08-28-2024 End: 08-28-2024 Patient encounter procedure Maternal Medicine Comment on above: Nuchal Start: 07-31-2024 End: 10-30-2024 ANEMIA REFLEX PANEL [facility] Work Phone: Comment on above: Expected: 07/31/2024 , Expires: 10/30/2024 Start: 07-31-2024 End: 10-30-2024 Hemoglobin A1c in Blood [facility] Comment on above: Expected: 07/31/2024 , Expires: 10/30/2024 Start: 07-31-2024 End: 10-30-2024 Hepatitis B virus surface Ag [Presence] in Serum [facility] Comment on above: Expected: 07/31/2024 , Expires: 10/30/2024 Start: 07-31-2024 End: 10-30-2024 Hepatitis C virus Ab [Presence] in Serum [facility] Comment on above: Expected: 07/31/2024 , Expires: 10/30/2024 Start: 07-31-2024 End: 10-30-2024 HIV 1+2 Ab [Presence] in Serum or Plasma by Immunoassay [facility] Comment on above: Expected: 07/31/2024 , Expires: 10/30/2024 Start: 07-31-2024 End: 07-31-2025 OBSTETRIC ULTRASOUND WHI OBSTETRIC ULTRASOUND [facility] Anc Imaging Routine Encounter for supervision of normal in multigravida 8 weeks gestation of Expected: 07/31/2024, Expires: 07/31/2025 [facility] Comment on above: Expected: 07/31/2024 , Expires: 07/31/2025 Start: 07-31-2024 End: 10-30-2024 RUBELLA IGG ANTIBODY [facility] Comment on above: Expected: 07/31/2024 , Expires: 10/30/2024 Start: 07-31-2024 End: 10-30-2024 SYPHILIS TREPONEMAL W/REFLEX [facility] Comment on above: Expected: 07/31/2024 , Expires: 10/30/2024 Start: 07-31-2024 End: 10-30-2024 TYPE + SCREEN [facility] Comment on above: Expected: 07/31/2024 , Expires: 10/30/2024 Start: 05-19-2024 Screening for malign ant neoplasm of cervix Cervical Cancer Screening [facility] Start: 09-01-2024 Covid-19 Vaccine ( season) Covid-19 Vaccine ( season) [facility] Start: 03-17-2024 Influenza vaccination Influenza Vacc ine (#1) [facility] Start: 01-18-2024 Wellness Exam Wellness Exam [facility] Start: 04-27-2022 End: 04-27-2022 ambulatory 04/27/2022 OB Initial Visit plastic sheets supervisor Max Lau, CARDIOPULMONARY SPECIALIST [address] [facility] [address] [place] [address] [facility] Start: 02-14-2022 Refusal of treatment by patient INFLUENZA VACCINE [facility] Start: 2021 HPV Vaccine (1 - 3-d ose SCDM series) HPV Vaccine (1 - 3-dose SCDM series) [facility] Start: 11-26-2019 COTEST / HPV COTEST / HPV [facility] Start: 11-26-2015 CERVICAL CANCER SCREENING CERVICAL CANCER SCREENING [facility] Start: 11-26-2015 Microscopic observat ion [Identifier] in Cervix by Cyto stain PAP SMEAR [facility] Start: 11-26-2015 Screening for malign ant neoplasm of cervix Cervical Cancer Screening [facility] Start: 2013 DTaP/Tdap/Td VACCINE S (1 - Tdap) DTaP/Tdap/Td VACCINES (1 - Tdap) [facility] Start: 2013 Hepatitis B Vaccine (1 of 3 - 19+ 3-dose series) Hepatitis B Vaccine (1 of 3 - 19+ 3-dose series) [facility] Start: 2013 Third diphtheria, tetanus and acellular pertussis (DTaP) vaccination DTaP,Tdap,and Td Vaccine (1 - Tdap) [facility] Start: 2013 Urine microalbumin profile DTaP,Tdap,Td Vaccine (1 - Tdap) [facility] Start: 2012 Anxiety Screening Anxiety Screening [facility] Start: 2012 Depression Screening Depression Scre ening [facility] Start: 2012 HEPATITIS C SCREENING HEPATITIS C SC REENING [facility] Start: 2009 HIV SCREENING HIV SCREENING [facility] Start: 1997 ANNUAL PREVENTIVE PHYSICAL (INCLUDES MAAP) ANNUAL PREVENTIVE PHYSICAL (INCLUDES MAAP) [facility] Start: 05-28-1995 COVID-19 VACCINE (#1) COVID-19 VACCI NE (#1) [facility] Start: 1994 HEPATITIS B VACCINES (1 of 3 - 3-dose series) HEPATITIS B VACCINES (1 of 3 - 3-dose series) [facility] Bacteria identified in Urine by Culture BACTERIAL CULTURE, URINE Microbiology Routine Encounter for supervision of normal in multigravida 8 weeks gestation of 07/31/2024 9:53 AM [facility] Chlamydia trachomatis+Neisseria gonorrhoeae DNA [Presence] in Unspecified specimen by MICHAEL with probe detection GONORRHEA/CHLAMYDIA NAAT Lab Routine Encounter for supervision of normal in multigravida 8 weeks gestation of 07/31/2024 9:53 AM [facility] nonstress test NON-S TRESS TEST Procedures Routine Encounter for supervision of other normal in third trimester (HCC) 40 weeks gestation of (HCC) Ordered: 03/11/2025 [facility] Comment on above: Ordered: 03/11/2025 HIGH RISK HUMAN PAPILLOMA VIRUS (HPV), PCR FOR DETECTION AND GENOTYPING HIGH RISK HUMAN PAPILLOMA VIRUS (HPV), PCR FOR DETECTION AND GENOTYPING Lab Routine Encounter for supervision of normal in multigravida 8 weeks gestation of 07/31/2024 9:53 AM [facility] End: 02-23-2026 OBSTETRIC ULTRASOUND [facility]I OBSTETRIC ULTRASOUND [facility] Anc Imaging Routine Encounter for supervision of other normal in third trimester (HCC) 40 weeks gestation of (HCC) Once per month for 3 Occurrences starting 03/11/2025 until 02/23/2026 [facility] Work Phone: Comment on above: Once per month for 3 Occurrences starting 03/11/2025 until 02/23/2026 PAP TEST PAP TEST Lab Emerson borjas Encounter for supervision of normal in multigravida 8 weeks gestation of 07/31/2024 9:53 AM [facility] Patient Education Kick Counts ED False Labor OB Triage: Return to Hospital or Notify Physician if you Experience: [facility] Work Phone: ROUTINE, GR OUP B STREPTOCOCCUS BY PCR ROUTINE, GROUP B STREPTOCOCCUS BY PCR Microbiology Routine Encounter for supervision of other normal in third trimester (HCC) 02/11/2025 9:00 AM EDT [facility] Work Phone: URINE OB DIP B/O URINE OB DIP B/ O Lab Routine 34 weeks gestation of ([facility]) Encounter for supervision of other normal in third trimester ([facility]) Ordered: 01/28/2025 [facility] Work Phone: Comment on above: Ordered: 01/28/2025 Immunizations Immunization Date Immunization Notes Care Provider Musa chamorro 05-21-2018 influenza virus vacc ine, unspecified formulation Ling Daly CARDIOPULMONARY SPECIALIST-SALES AND MARKETING ENGINEER Work Phone: [facility] Payers Date Payer Category Payer Self-pay 2022 Managed Care (Private) [facility] [employer] [id number] 2022 Medicaid [id number] 2022 Medicaid [id number] 2022 Unknown [id number] 2020 Private Health Insurance [id number] 2014 Unknown [id number] 1994 Unknown [id number] [id number]. 201 1994 Unknown [id number] [id number]. 201 1994 Unknown [id number] .[id number]. 201 Private Health Insurance [facility] PLUS [id number] Effective for all dates [address] [address] [place] [address] EPO [id number] Unknown [id number] 2.16.840.1.286680.3.579.2. 246 Unknown [id number] 2.16840.1.142336.3.579.2. 246 Unknown [id number] 2.16.840.1.583164.3.579.2. 246 Unknown [id number] 2.16840.1.197588.3.579.2. 246 Unknown [id number] 2.16840.1.730824.3.579.2. 246 Unknown [id number] 2.16840.1.196234.3.579.2. 246 Unknown [id number] 2.840.1.357037.3.579.2. 246 Unknown [id number] 2.840.1.415592.3.579.2. 246 Unknown [id number] 2.16840.1.528094.3.579.2. 246 Unknown [id number] 2.16.840.1.958153.3.579.2. 246 Unknown [id number] 2.16840.1.486856.3.579.2. 246 Unknown [id number] 2.840.1.343301.3.579.2. 246 Unknown [id number] 2.840.1.733534.3.579.2. 246 Unknown [id number] 2.840.1.748529.3.579.2. 246 Unknown [id number] Unknown [id number] Unknown [id number] Unknown [id number] Unknown [id number] [id number]. 462 Social History Date Type Detail Facility Start: 02-02-2011 End: 04-12-2022 Tobacco smoking status NHIS Never smoked tobacco [facility] Start: 02-02-2011 End: 04-12-2022 Tobacco use and exposure Smokeless tobacco non-user [facility] Start: 04-23-2022 End: 03-07-2025 Alcohol intake Ex-drinker (finding) [facility] Start: 1995 Sex Assigned At Not on file P [facility] Start: 04-13-2022 End: 04-23-2022 Exposure to SARS-CoV-2 (event) Not sure [facility] Start: 10-25-2023 Alcoholic beverage intake Curr ent non-drinker of alcohol (finding) [facility] Start: 10-25-2023 End: 07-31-2024 History of Social function [facility] Start: 10-25-2023 End: 07-31-2024 Tobacco use panel [facility] The thought of jt archer myself has occurred to me Never [facility] Start: 06-17-2012 National Score (1-10 0), lower number is lower risk 60 [facility] Start: 06-15-2024 [facility] Start: 1995 Sex assigned at Female C [facility] Start: 07-30-2024 Gender identity Identifies as female gender (finding) [facility] Start: 07-30-2024 Sexual orientation Heterosexual (evelyne cade) [facility] Goals Date Patient Goal Desired Activity /State Personal health goal Comment on above: Formatting of this n ote might be different from the original. Pt to follow up with a pap smear in 2 mo Personal health goal Functional Status Date Assessment Result Facility 05-18-2021 Are you deaf, or do you have serious difficulty hearing No 05/18/2021 9:50 AM Alana Andrews CMA [facility] Work Phone: 05-18-2021 Are you blind, or do you have serious difficulty seeing, even when wearing glasses No 05/18/2021 9:50 AM Alana Andrews CMA [facility] 05-18-2021 Do you have serious difficulty walking or climbing stairs No 05/18/2021 9:50 AM Alana Andrews CMA [facility] 05-18-2021 Do you have difficul ty dressing or bathing No 05/18/2021 9:50 AM EDT Alana Murphy, ROCIO [facility] 05-18-2021 Because of a physica l, mental, or emotional condition, do you have difficulty doing errands alone such as visiting a physician's office or shopping No 05/18/2021 9:50 AM EDT Alana Murphy, SPOOL CARRIER [facility] Mental Status Date Assessment Result Facility 05-18-2021 Because of a physica l, mental, or emotional condition, do you have serious difficulty concentrating, remembering, or making decisions No 05/18/2021 9:50 AM EDT Alana Murphy, ROCIO [facility] Clinical Notes 04-23-2022 to 03-14-2025 Quick Notes - Khadra Mancini APRN.[facility] - 03/14/2025 1:40 PM EDTCKhadra salinas APRN.[facility] - 03/14/2025 1:40 PM EDTPrenatal Quick Notes - Khadra Mancini APRN.CN - 03/14/2025 1:40 PM EDT Note Date & Type Note Facility 03-14-2025 Progress note Formatting of t his note is different from the original. MAGDIEL-S: Yanet Banks is a 29 year old female who presents at 40w6d with KIA:03/08/2025, by Last Menstrual Period for a problem visit. Denies headache, visual changes, chest pain, shortness of breath, vaginal bleeding, leakage of fluid, or dysuria. Irregular contractions but slowed down. Returns today for membrane sweep. O: See flow sheet Gen: No apparent distress Abd: Gravid, nontender Cervical exam with membrane sweep, tolerated well and consented BPP 6/8 for breathing BPP 8/10 with NST reactive SENSITIVE EXAMINATION CONSENT: The sensitive examination was discussed with the Patient or Patient's Authorized Yard Driver. As applicable, any other physician, advance practice provider, medical student, or other health professional student that will be observing or involved in the sensitive examination for educational or training purposes was discussed with the Patient or Authorized Yard Driver. The Patient or Authorized Yard Driver has agreed to proceed with the sensitive examination. ASSESSMENT/PLAN: 1. Encounter for supervision of other normal in third trimester -IOL on 03/21 at 0700 with MAGDIEL Stinson to manage 2. 40 weeks gestation of 3. Multiparity PTL precautions reviewed and when to call Khadra Mancini APRN.CNM [facility] 03-14-2025 History of Presen t illness Narrative NST SUMMARY PROVIDER ASSESSMENT AND INTERPRETATION Yanet Banks is a 29 year old female, , who is at 40w6d with an KIA of 03/08/2025, by Last Menstrual Period dating method. Indications for NST: Postdates/Postterm Baseline: 135 Variability: Moderate Accelerations: Present 15 X 15 Decelerations: None Contractions: TOCO: None Interpretation: Reactive SIGNATURE: Khadra Mancini APRN.CNM documented in this encounter [facility] 03-14-2025 Miscellaneous Notes Formattin g of this note is different from the original. MAGDIEL-S: Yanet Banks is a 29 year old female who presents at 40w6d with KIA:03/08/2025, by Last Menstrual Period for a problem visit. Denies headache, visual changes, chest pain, shortness of breath, vaginal bleeding, leakage of fluid, or dysuria. Irregular contractions but slowed down. Returns today for membrane sweep. O: See flow sheet Gen: No apparent distress Abd: Gravid, nontender Cervical exam with membrane sweep, tolerated well and consented BPP 6/8 for breathing BPP 8/10 with NST reactive SENSITIVE EXAMINATION CONSENT: The sensitive examination was discussed with the Patient or Patient's Authorized Yard Driver. As applicable, any other physician, advance practice provider, medical student, or other health professional student that will be observing or involved in the sensitive examination for educational or training purposes was discussed with the Patient or Authorized Yard Driver. The Patient or Authorized Yard Driver has agreed to proceed with the sensitive examination. ASSESSMENT/PLAN: 1. Encounter for supervision of other normal in third trimester -IOL on 03/21 at 0700 with MAGDIEL Stinson to manage 2. 40 weeks gestation of 3. Multiparity PTL precautions reviewed and when to call Khadra Mancini APRN.CNCandice documented in this encounter [facility] 03-14-2025 Note Indication Evaluation of growth, Evaluation of well-being post dates Impression REMOTE READ - Single, live, intrauterine . - presentation is cephalic. - The biometry is consistent with the assigned gestational dating. - The EFW is 3758 g - The amniotic fluid volume is normal amount with an MVP of 5.6 cm and an BONNIE of 15.9 cm. - The placenta is anterior, fundal. - BPP 12/22. - No malformations visualized on a limited survey as detailed below. Recommendations - Per donor center technician, NST was performed and was reactive - Weekly surveillance. - Additional follow up as clinically indicated. Maternal Assessment Height 155 cm Height (ft) 5 ft Height (in) 1 in Physical Exam Initial weight (lb) 124 lb Initial BMI 23.43 kg/m Maternal assessment other: 3 Para 2 Method Transabdominal ultrasound examination Salas . Number of fetuses: 1 Dating LMP on: 06/01/2024 GA by LMP 40 w + 6 d KIA by LMP: 03/08/2025 GA by prior assessment 40 w + 6 d KAI by prior assessment: 03/08/2025 Ultrasound examination on: 03/14/2025 GA by U/S based upon: AC, BPD, Femur GA by U/S 38 w + 5 d KIA by U/S: 03/23/2025 Assigned: based on stated KIA, selected on 03/14/2025 Assigned GA 40 w + 6 d Assigned KIA: 03/08/2025 General Evaluation Cardiac activity present. FHR 145 bpm. movements: present. Presentation: cephalic Placenta: Placental site: anterior, fundal Umbilical cord: Cord vessels: 3 vessel cord Amniotic fluid: Amount of AF: normal amount. MVP 5.6 cm. BONNIE 15.9 cm. Q1 5.6 cm, Q2 3.3 cm, Q3 2.0 cm, Q4 5.0 cm Biophysical Profile 0: breathing movements 2: Gross body movements 2: tone 2: Amniotic fluid volume 6/8 Biophysical profile score Growth Overview Exam date GA BPD (mm) HC (mm) AC (mm) FL (mm) HL (mm) EFW (g) 10/23/2024 20w 4d 44.2 9% 173.5 29% 156.4 51% 30.1 19% 30.1 25% 330 21% 03/14/2025 40w 6d 97.6 351.6 362.6 71.5 3758 Biometry Standard BPD 97.6 mm 40w 0d Hadlock OFD 123.1 mm -/- Nicolaides HC 351.6 mm -/- Isra AC 362.6 mm 40w 1d Hadlock Femur 71.5 mm 36w 1d Isra EFW 3,758 g -/- Hadlock EFW (lb) 8 lb EFW (oz) 5 oz EFW by: Hadlock (HC-AC-FL) Extended Insurance Clerk 7.1 mm Extremities / Bony Struc FL / HC 0.20 Other Structures FHR 145 bpm Anatomy Lateral ventricles: normal Cavum septi pellucidi: normal Cerebellum: normal Cisterna magna: normal 4-chamber view: normal RVOT view: normal LVOT view: normal 3-vessel view: normal Heart / Thorax Situs: situs solitus (normal) Diaphragm: normal Stomach: normal Kidneys: normal Bladder: normal sex: male Wants to know sex: yes Performed By: Lolis De Jesus RDMS, RVT Read By: Jayden Smith M.D. MATERNAL MEDICINE 03-14-2025 Phil Cope LPN - 03/14/2025 10:01 AM EDT SEQUENTIAL SCREENINGS The [facility] offers sequential screenings for women who are [...] It will require an appointment with our electrical assembly technician. This is not an ultrasound performed [...] the above symptoms, contact our office at [phone] and ask to speak with a nurse. After hours, you can call doctors registry at [phone] OR call [facility] at [phone] and ask to have the doctor expeditionary fighting vehicle crewman paged. If you consider this an emergency, dial 6-4-9 or go to your nearest emergency department. NEED HELP? Are you dealing with a violent or abusive relationship? Are you a victim of rape or sexual assult? Call [facility] 24 hour Crisis Hotline: 349.835.5481 or 866-101-4654. MANUAL Your Guide to a Healthy manual is now on-line. Visit [email or web address] to download your free copy documented in this encounter [facility] 03-13-2025 History and physi jaxson note [facility] 03-12-2025 Telephone encounter Note 40w4d Patient called [...] aware that MAGDIEL and CP are not expeditionary fighting vehicle crewman today. L&D notified. Updated H&P faxed to L&d. Patient lives minutes away from the hospital. Nica Law RN [facility] 03-12-2025 Miscellaneous Notes 40w4d Patient called to [...] aware that MAGDIEL and CP are not expeditionary fighting vehicle crewman today. L&D notified. Updated H&P faxed to L&d. Patient lives minutes away from the hospital. Nica Law RN documented in this encounter [facility] 03-11-2025 Progress note Formatting of t his [...] discussed with the Patient or Patient's Authorized Yard Driver. As applicable, any other physician, advance practice provider, medical student, or other health professional student that will be observing or involved in the sensitive examination for educational or training purposes was discussed with the Patient or Authorized Yard Driver. The Patient or Authorized Yard Driver has agreed to proceed with the sensitive [...] RTO in 3 days Khadra Mancini APRN.CNM [facility] 03-11-2025 Miscellaneous Notes MAGDIEL-S: Yanet Banks is [...] discussed with the Patient or Patient's Authorized Yard Driver. As applicable, any other physician, advance practice provider, medical student, or other health professional student that will be observing or involved in the sensitive examination for educational or training purposes was discussed with the Patient or Authorized Yard Driver. The Patient or Authorized Yard Driver has agreed to proceed with the sensitive [...] Khadra Mancini APRN.CNM documented in this encounter [facility] 03-11-2025 Instructions Carli Youngblood MA - 03/11/2025 10:28 AM EDT SEQUENTIAL SCREENINGS [facility] [facility] offers sequential screenings for women who are [...] It will require an appointment with our electrical assembly technician. This is not an ultrasound performed [...] the above symptoms, contact our office at [phone] and ask to speak with a nurse. After hours, you can call doctors registry at [phone] OR call [facility] at [phone] and ask to have the doctor expeditionary fighting vehicle crewman paged. If you consider this an emergency, dial 9-1-7 or go to your nearest emergency department. NEED HELP? Are you dealing with a violent or abusive relationship? Are you a victim of rape or sexual assult? Call [facility] ([facility] 24 hour Crisis Hotline: 727.928.8525 or 611-847-9941. MANUAL Your Guide to a Healthy manual is now on-line. Visit [email or web address]/HealthyPregn ancyGuide to download your free copy documented in this encounter [facility] 03-07-2025 Telephone encounter Note Faxed signed angela consent to [facility] 03/07/2025. Erasto Brunson LPN [facility] 03-07-2025 Miscellaneous Notes Faxed signed angela consent to [facility] 03/07/2025. Erasto Brunson LPN documented in this encounter [facility] 03-07-2025 Progress note Formatting of t his [...] or sooner if needed Annie Thakur APRN.CNM [facility] 03-07-2025 Miscellaneous Notes S: Yanet Banks is a [...] Annie Thakur APRN.CNM documented in this encounter [facility] 03-07-2025 Instructions Erasto Brunson LPN - 03/07/2025 1:09 PM EDT SEQUENTIAL SCREENINGS The [facility] offers sequential screenings for women who are [...] It will require an appointment with our electrical assembly technician. This is not an ultrasound performed [...] the above symptoms, contact our office at [phone] and ask to speak with a nurse. After hours, you can call doctors registry at [phone] OR call [facility] at [phone] and ask to have the doctor expeditionary fighting vehicle crewman paged. If you consider this an emergency, dial 9-0-7 or go to your nearest emergency department. NEED HELP? Are you dealing with a violent or abusive relationship? Are you a victim of rape or sexual assult? Call [facility] ([place]) 24 hour Crisis Hotline: 942.226.2047 or 671-150-3126. MANUAL Your Guide to a Healthy manual is now on-line. Visit [email or web address]/HealthyPregn ancyGuide to download your free copy documented in this encounter [facility] 03-05-2025 Progress note Formatting of t his [...] tender ASSESSMENT/PLAN: 1. 39 weeks gestation of ([facility]) - ICD9: V22.2, ICD10: Z3A.39 (primary diagnosis) 2. Encounter for supervision of other normal in third trimester ([facility]) - ICD9: V22.1, - R/B of membrane sweep discussed and questions answered - Desires water - needs to sign consent - Plan is to return to office on Monday for CE with membrane sweep - Labor precautions reviewed and when to call Annie Thakur APRN.CNM [facility] 03-05-2025 Miscellaneous Notes S: Yanet Banks is [...] tender ASSESSMENT/PLAN: 1. 39 weeks gestation of ([facility]) - ICD9: V22.2, ICD10: Z3A.39 (primary diagnosis) 2. Encounter for supervision of other normal in third trimester ([facility]) - ICD9: V22.1, - R/B of membrane sweep discussed and questions answered - Desires water - needs to sign consent - Plan is to return to office on Monday for CE with membrane sweep - Labor precautions reviewed and when to call Annie Thakur APRN.CNM documented in this encounter [facility] 03-05-2025 Instructions Erasto Brunson LPN - 03/05/2025 8:38 AM EDT SEQUENTIAL SCREENINGS The [facility] offers sequential screenings for women who are [...] It will require an appointment with our electrical assembly technician. This is not an ultrasound performed [...] the above symptoms, contact our office at [phone] and ask to speak with a nurse. After hours, you can call doctors registry at [phone] OR call [facility] at [phone] and ask to have the doctor expeditionary fighting vehicle crewman paged. If you consider this an emergency, dial 9-1-1 or go to your nearest emergency department. NEED HELP? Are you dealing with a violent or abusive relationship? Are you a victim of rape or sexual assult? Call [facility] ([place]) 24 hour Crisis Hotline: 487.359.2279 or 916-289-5139. MANUAL Your Guide to a Healthy manual is now on-line. Visit [email or web address]/HealthyPregn ancyGuide to download your free copy documented in this encounter [facility] 02-25-2025 Note HNO ID: [id number] Author: NIRU CASAREZ MA Service: ? Author Type: Corporate Travel Consultant Type: Progress Notes Filed: 02/25/2025 14:13 Note Text: POPULATION HEALTH NAVIGATION OUTREACH Action/FYI Case Aide updated per documentation. Reason for Outreach Medicaid OB/Peds Care Gaps due: N/A Patient Contacted: Unable or unnecessary to reach patient: inclinometer tester added Navigation Signature: Niru Birch MA February 25, 2025 12:14 PM [facility] 02-25-2025 History of Presen t illness Narrative POPULATION HEALTH NAVIGATION OUTREACH Action/FYI Case Aide updated per documentation. Reason for Outreach Medicaid OB/Peds Care Gaps due: N/A Patient Contacted: Unable or unnecessary to reach patient: [place] inclinometer tester added Navigation Signature: Niru Birch MA February 25, 2025 12:14 PM documented in this encounter [facility] 02-25-2025 Progress note Formatting of t his [...] RTO in 1 weeks Khadra Mancini APRN.CNM [facility] 02-25-2025 Miscellaneous Notes MAGDIEL-S: Yanet Banks is [...] Khadra Mancini APRN.CNM documented in this encounter [facility] 02-25-2025 Instructions Carli Youngblood MA - 02/25/2025 8:00 AM EDT SEQUENTIAL SCREENINGS The [facility] offers sequential screenings for women who are [...] It will require an appointment with our electrical assembly technician. This is not an ultrasound performed [...] the above symptoms, contact our office at [phone] and ask to speak with a nurse. After hours, you can call doctors registry at [phone] OR call [facility] at [phone] and ask to have the doctor expeditionary fighting vehicle crewman paged. If you consider this an emergency, dial 8-6-2 or go to your nearest emergency department. NEED HELP? Are you dealing with a violent or abusive relationship? Are you a victim of rape or sexual assult? Call [facility] ([place] 24 hour Crisis Hotline: 506.842.4500 or 878-440-7368. MANUAL Your Guide to a Healthy manual is now on-line. Visit [email or web address] ancyGuide to download your free copy documented in this encounter [facility] 02-25-2025 Note Patient Outreach (NE TNAV) YANET BANKS ([id number]) 1995 F Date Time Provider Department 02/25/25 NIRU CASAREZ During your visit today, we recorded the following information about you: Niru Casarez MA 02/25/2025 2:13 PM Signed POPULATION HEALTH NAVIGATION OUTREACH Action/FYI Case Aide updated per documentation. Reason for Outreach Medicaid OB/Peds Care Gaps due: N/A Patient Contacted: Unable or unnecessary to reach patient: [place] inclinometer tester added Navigation Signature: Niru Birch MA February [...] Encounter Status:Closed by NIRU CASAREZ on 02/25/25 [facility] 02-11-2025 Progress note Formatting of t his [...] was discussed with the patient or authorized credit and collections representative. The patient or authorized credit and collections representative has agreed to proceed with the sensitive examination. @ 36.3 weeks Assessment & Plan Encounter for supervision of other normal in third trimester (HCC) Orders: URINE OB DIP B/O ROUTINE, GROUP B STREPTOCOCCUS BY PCR 36 weeks gestation of (HCC) GBS today Kick counts and labor reviewed RTO weekly Vertex confirmed on bedside US Orders: URINE OB DIP B/O Chinyere Enamorado MD [facility] Work Phone: 02-11-2025 Miscellaneous Notes DM-Pt doing well. Denies vaginal Bleeding, Leaking fluid, or regular Contractions. Pt reports good movement Physical Exam: Gen: female in no apparent distress Abd: soft, Gravid. Non tender to palpation. See flow sheet Participation of a fellow, resident, medical student, or advanced practice provider student in performing the sensitive examination was discussed with the patient or authorized credit and collections representative. The patient or authorized credit and collections representative has agreed to proceed with the sensitive examination. @ 36.3 weeks Assessment & Plan Encounter for supervision of other normal in third trimester (HCC) Orders: URINE OB DIP B/O ROUTINE, GROUP B STREPTOCOCCUS BY PCR 36 weeks gestation of ([facility]) GBS today Kick counts and labor reviewed RTO weekly Vertex confirmed on bedside US Orders: URINE OB DIP B/O Chinyere Enamorado MD documented in this encounter [facility] 02-11-2025 Instructions Melida Le MA - 02/11/2025 8:40 AM EDT SEQUENTIAL SCREENINGS The [facility] offers sequential screenings for women who are [...] It will require an appointment with our electrical assembly technician. This is not an ultrasound performed [...] the above symptoms, contact our office at [phone] and ask to speak with a nurse. After hours, you can call doctors registry at [phone] OR call [facility] at [phone] and ask to have the doctor expeditionary fighting vehicle crewman paged. If you consider this an emergency, dial -0 or go to your nearest emergency department. NEED HELP? Are you dealing with a violent or abusive relationship? Are you a victim of rape or sexual assult? Call [facility] ([facility] 24 hour Crisis Hotline: 961.915.9341 or 454-977-3756. MANUAL Your Guide to a Healthy manual is now on-line. Visit [email or web address] ancyGuide to download your free copy documented in this encounter [facility] 01-29-2025 Telephone encounter Note Patient notified and voiced understanding. Lolis Anders RN [facility] 01-29-2025 Miscellaneous Notes Patient notified and voiced [...] Nica Law RN documented in this encounter [facility] 01-28-2025 Telephone encounter Note Agree call if pain is severe, persistent or associated with other symptoms such as bleeding, LOF. For pain in advise warm baths or showers, rest, and Tylenol PRN. If pain does not improve with that can call [facility] Work Phone: 01-28-2025 Telephone encounter Note 34w3d Patient seen in office today and forgot to mention some pain she had on Monday after she was seen by the Chiropractor. Several hours after she had a side line adjustment on Monday she had a sharp pain in her cervix. Pain rate of 7-8. Said it felt much different than [place]. The pain returned again today after [...] out of the office. Nica Law RN [facility] 01-28-2025 Progress note Formatting of t his note might be different from the original. SW- Pt doing well. No regular ctx. No vb, lof. Good FM PE: Gen- NAD, well appearing Abd- Soft, gravid, NT See flowsheet A/p 34 wk gestation - Discussed eating dates in - Discussed upcoming expectations - RTO 2 wks Arthur Conklin DO [facility] 01-28-2025 Miscellaneous Notes SW- Pt doing well. No regular ctx. No vb, lof. Good FM PE: Gen- NAD, well appearing Abd- Soft, gravid, NT See flowsheet A/p 34 wk gestation - Discussed eating dates in - Discussed upcoming expectations - RTO 2 wks Arthur Conklin DO documented in this encounter [facility] 01-28-2025 Instructions [place], NiruNATHANAEL - 01/28/2025 8:38 AM EDT SEQUENTIAL SCREENINGS The [facility] offers sequential screenings for women who are [...] It will require an appointment with our electrical assembly technician. This is not an ultrasound performed [...] the above symptoms, contact our office at [phone] and ask to speak with a nurse. After hours, you can call doctors registry at [phone] OR call [facility] at [phone] and ask to have the doctor expeditionary fighting vehicle crewman paged. If you consider this an emergency, dial 9--1 or go to your nearest emergency department. NEED HELP? Are you dealing with a violent or abusive relationship? Are you a victim of rape or sexual assult? Call [facility] ([place] 24 hour Crisis Hotline: 472.962.5592 or 380-297-1306. MANUAL Your Guide to a Healthy manual is now on-line. Visit [email or web address]/HealthyPregn ancyGuide to download your free copy documented in this encounter [facility] 01-14-2025 Progress note Formatting of t his [...] RTO in 2 weeks Khadra Mancini APRN.CNM [facility] 01-14-2025 Miscellaneous Notes MAGDIEL-S: Yanet Banks is a [...] Khadra Mancini APRN.CNM documented in this encounter [facility] 01-14-2025 Instructions Khadra Mancini APRN.CNM - 01/14/2025 [...] make an easy pie crust in the seafood preparer. Add soaked dates to homemade nut butter for a sweet treat. Add dates to eduardo homemade salad dressing. Add dates during easily with these yummy (paleo friendly) bars made from dates. What Is Red Raspberry Dows Tea? Red raspberry leaf tea comes from [...] , and too. How Much Red Raspberry Dows Tea to Drink? With your doctor or tray worker s approval, start with 1 cup of [...] because of uterine cramping. Is Red Raspberry Dows Tea the Same as Raspberry Dows Tea? How About Plain Old Raspberry Tea? Sometimes. You really need to look at the ingredients to be sure. Note that there is no difference between red raspberry leaf and raspberry leaf. Tryouts or Surveying And Mapping (SAM) Raspberry Dows Tea are two good brands. The red [...] of RRLT outlined in this article. The [employer] www.QXL ricardo plc I named this 'circuit' after my friend [...] in your head. Step Three: Moving and Edgar Al, walk stairs facing sideways, 2 at a time, (have a instrument specialist downstairs of you!), take a walk outside [...] the pelvis. Aziza Amos: Circuit Creator - www.dunmoreJuiceBox Gamesundbirthcollective.[employer] Corrie Arevalo, CD, BDT (NICOLE), LCCE, FACCE: Supporting Content - www.corrieMedic Vision Brain Technologiesclemente.Hotelicopter Rose Gee: Photography - www.[employer] Pastora Garcia CD/CDT (ALIDA): Print and Scale Expert - www.UGE [employer] Masterminds [employer] Circuit www.[employer] ricardo [employer] What is my perineum? Your perineum is [...] women. Although they were common before the 1990s, they are rarely done today. However, sometimes [...] or burning! Figure 1 1 Perineal Massage Flesch?Mary Kate Grade Level: 7.2 Approved July 2015. This [...] the above symptoms, contact our office at [phone] and ask to speak with a nurse. After hours, you can call doctors registry at [phone] OR call [facility] at [phone] and ask to have the doctor expeditionary fighting vehicle crewman paged. If you consider this an emergency, dial 2-8-8 or go to your nearest emergency department. NEED HELP? Are you dealing with a violent or abusive relationship? Are you a victim of rape or sexual assult? Call [facility] 24 hour Crisis Hotline: 154.667.5069 or 172-332-8913. MANUAL Your Guide to a Healthy manual is now on-line. Visit [email or web address] ancyGuide to download your free copy documented in this encounter [facility] 01-01-2025 Telephone encounter Note 3rd risk assessment form submitted 01/01/2025. Nica Uriarte RN [facility] 01-01-2025 Miscellaneous Notes 3rd risk assessment form submitted 01/01/2025. Nica Uriarte RN documented in this encounter [facility] 12-31-2024 Progress note Formatting of t his [...] RTO in 2 weeks Khadra Mancini APRN.CNM [facility] 12-31-2024 Miscellaneous Notes MAGDIEL-S: Yanet Banks is [...] when to call RTO in 2 weeks Kahdra Mancini APRN.CNM documented in this encounter [facility] 12-31-2024 Instructions Khadra Mancini APRN.CNM - 12/31/2024 8:07 AM EDT [facility] [address] [place] [address] [facility] [address] [place], [place] [address] [facility] [address] [place] [address] [facility] [address] [place] [address] [email or web address] [facility] [address] [place] [address] [facility] [address] [facility] [place] [place] [address] [email or web address] [facility] [address], [place] [address] [email or web address] [facility] [place] [phone] [facility] [address] [place] [address] [facility] [address] [address] [facility] [place] office also [phone] [email or web address]/[facility]-office/ [facility] [phone] [address] [facility] [address] [place] [address] [facility], [address] [address] [email or web address] Plasma Medical Technologies [facility] [address] [place] [address] [email or web address] [email or web address] SIGNS AND SYMPTOMS OF LABOR 1. Contractions every 10 minutes or more often 2. Clear, pink, or brownish fluid (water) leaking from vagina 3. Feeling that baby is pushing down, pressure 4. Low, dull backache 5. Cramps that feel like a period 6. Cramps with or without diarrhea If you notice any of the above symptoms, contact our office at [phone] and ask to speak with a nurse. After hours, you can call doctors registry at [phone] OR call [facility] at [phone] and ask to have the doctor expeditionary fighting vehicle crewman paged. If you consider this an emergency, dial 9-- or go to your nearest emergency department. NEED HELP? Are you dealing with a violent or abusive relationship? Are you a victim of rape or sexual assult? Call [facility] 24 hour Crisis Hotline: 972.676.5836 or 211-061-9179. MANUAL Your Guide to a Healthy manual is now on-line. Visit [email or web address]/HealthyPregn ancyGuide to download your free copy documented in this encounter [facility] 12-17-2024 Progress note Formatting of t his [...] RTO in 2 weeks Khadra Mancini APRN.CNM [facility] Work Phone: 12-17-2024 Miscellaneous Notes MAGDIEL-S: Yanet [...] Khadra Mancini APRN.CNM documented in this encounter [facility] 12-17-2024 Instructions Khadra Mancini APRN.CNM - 12/17/2024 [...] care provider right away for further instructions Start Start Start End End End Minutes [...] the above symptoms, contact our office at [phone] and ask to speak with a nurse. After hours, you can call doctors registry at [phone] OR call [facility] at [phone] and ask to have the doctor expeditionary fighting vehicle crewman paged. If you consider this an emergency, dial 9-1-2 or go to your nearest emergency department. NEED HELP? Are you dealing with a violent or abusive relationship? Are you a victim of rape or sexual assult? Call [facility] 24 hour Crisis Hotline: 388.913.1223 or 449-508-1496. MANUAL Your Guide to a Healthy manual is now on-line. Visit [facility]org/HealthyPregn ancyGuide to download your free copy documented in this encounter [facility] 11-19-2024 Progress note Formatting of t his note might be different from the original. GRACES: Yanet Banks is a 28 year old [...] when to call RTO in 4 weeks [facility] 11-19-2024 Miscellaneous Notes MAGDIEL-S: Yanet Banks is [...] in 4 weeks documented in this encounter [facility] 11-19-2024 Instructions Raquel Beatty MA - 11/19/2024 11:23 AM EDT SEQUENTIAL SCREENINGS The [facility] offers sequential screenings for women who are [...] It will require an appointment with our electrical assembly technician. This is not an ultrasound performed [...] the above symptoms, contact our office at [phone] and ask to speak with a nurse. After hours, you can call doctors registry at [phone] OR call [facility] at [phone] and ask to have the doctor expeditionary fighting vehicle crewman paged. If you consider this an emergency, dial 9-1-0 or go to your nearest emergency department. NEED HELP? Are you dealing with a violent or abusive relationship? Are you a victim of rape or sexual assult? Call [facility] 24 hour Crisis Hotline: 184.816.1843 or 282-319-0839. MANUAL Your Guide to a Healthy manual is now on-line. Visit [email or web address]/HealthyPregn ancyGuide to download your free copy documented in this encounter [facility] 10-24-2024 Telephone encounter Note 2nd risk assessment form submitted 10/24/2024. Nica Uriarte RN [facility] 10-24-2024 Miscellaneous Notes 2nd risk assessment form submitted 10/24/2024. Nica Uriarte RN documented in this encounter [facility] 10-23-2024 Progress note Formatting of t his [...] - RTO 4 weeks Annie Thakur APRN.CNM [facility] 10-23-2024 Miscellaneous Notes S: Yanet Banks is [...] Annie Thakur APRN.CNM documented in this encounter [facility] 10-23-2024 Instructions Erasto Brunson LPN - 10/23/2024 8:42 AM EDT SEQUENTIAL SCREENINGS The [facility] offers sequential screenings for women who are [...] It will require an appointment with our electrical assembly technician. This is not an ultrasound performed [...] the above symptoms, contact our office at [phone] and ask to speak with a nurse. After hours, you can call doctors registry at [phone] OR call [facility] at [phone] and ask to have the doctor expeditionary fighting vehicle crewman paged. If you consider this an emergency, dial 9-1-0 or go to your nearest emergency department. NEED HELP? Are you dealing with a violent or abusive relationship? Are you a victim of rape or sexual assult? [facility] ([place]) 24 hour Crisis Hotline: 833.935.3981 or 932-145-4056. MANUAL Your Guide to a Healthy manual is now on-line. Visit [email or web address] ancyGuide to download your free copy documented in this encounter [facility] 09-24-2024 Progress note Formatting of t his [...] RTO in 4 weeks Khadra Mancini APRN.CNM [facility] Work Phone: 09-24-2024 Miscellaneous Notes MAGDIEL-S: Yanet [...] Khadra Mancini APRN.CNM documented in this encounter [facility] 09-24-2024 Instructions Rodo Singleton MA - 09/24/2024 9:34 AM EDT SEQUENTIAL SCREENINGS The [facility] offers sequential screenings for women who are [...] It will require an appointment with our electrical assembly technician. This is not an ultrasound performed [...] the above symptoms, contact our office at [phone] and ask to speak with a nurse. After hours, you can call [facility] registry at [phone] OR call [facility] at [phone] and ask to have the doctor expeditionary fighting vehicle crewman paged. If you consider this an emergency, dial 9-1-7 or go to your nearest emergency department. NEED HELP? Are you dealing with a violent or abusive relationship? Are you a victim of rape or sexual assult? Call [facility] ([place]) 24 hour Crisis Hotline: 845.229.9098 or 648-361-6288. MANUAL Your Guide to a Healthy manual is now on-line. Visit [email or web address] ancyGuide to download your free copy documented in this encounter [facility] 08-28-2024 Progress note Formatting of t his [...] - RTO 4 weeks Annie Thakur APRN.CNM [facility] 08-28-2024 Miscellaneous Notes S: Yanet Banks is [...] Annie Thakur APRN.CNM documented in this encounter [facility] 08-28-2024 Instructions Rodo Singleton MA - 08/28/2024 9:20 AM EST SEQUENTIAL SCREENINGS The [facility] offers sequential screenings for women who are [...] It will require an appointment with our electrical assembly technician. This is not an ultrasound performed [...] the above symptoms, contact our office at [phone] and ask to speak with a nurse. After hours, you can call doctors registry at [phone] OR call [facility] at [phone] and ask to have the doctor expeditionary fighting vehicle crewman paged. If you consider this an emergency, dial 9-1-5 or go to your nearest emergency department. NEED HELP? Are you dealing with a violent or abusive relationship? Are you a victim of rape or sexual assult? Call [facility] ([facility] 24 hour Crisis Hotline: 763.935.3360 or 232-306-2471. MANUAL Your Guide to a Healthy manual is now on-line. Visit [email or web address] ancyGuide to download your free copy documented in this encounter [facility] 08-01-2024 Telephone encounter Note 1st risk assessment form submitted 08/01/24 Shi Medley RN [facility] 08-01-2024 Miscellaneous Notes 1st risk assessment form submitted 08/01/24 Shi Medley RN documented in this encounter [facility] 07-31-2024 Progress note Formatting of t his note might be different from the original. Patient is here for NOB. See progress note. Annie Thakur APRN.CNM [facility] 07-31-2024 Miscellaneous Notes Patient is here for NOB. See progress note. Annie Thakur APRN.CNM documented in this encounter [facility] 07-30-2024 Note HNO ID: [id number] Author: ANNIE THAKUR APRN.CNM Service: ? Author Type: Surgical Manager Type: Progress Notes Filed: 07/31/2024 10:13 Note [...] the following (please check all that apply)? Surgical Manager care Social History: Do you have any [...] harming myself has occurred to me. 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 (Pat (more content not included)... [facility] 07-30-2024 History of Presen t illness Narrative [...] the following (please check all that apply)? Surgical Manager care Social History: Do you have any [...] harming myself has occurred to me. 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 As applicable, any other physician, advance practice provider, medical student, or other health professional student that will be observing or involved in the sensitive examination for educational or training purposes was discussed with the Patient or Authorized Yard Driver. The Patient or Authorized Yard Driver has agreed to proceed with the sensitive [...] Your guide to a health and the Special Events Fundraiser. Reviewed midwifery and metal machinist services that are available. 2) Screening: Hemoglobin [...] up in 4 weeks for early anatomy and NITISH Thakur APRN.CNM documented in this encounter [facility] 07-30-2024 Instructions Erasto Brunson LPN - 07/30/2024 3:46 PM EST Please select the following link to access the [facility] Your Guide to a Healthy . [email or web address] Please select the following link to access the [facility] Your Guide to a Healthy . [email or web address] documented in this encounter [facility] 07-29-2024 Telephone encounter Note Last visit- 10/25/23 Last refill- 11/22/23 [facility] 07-29-2024 Miscellaneous Notes Last visit- 10/25/23 Last refill- 11/22/23 documented in this encounter [facility] 10-25-2023 Note Encounter Department : [facility] OF [facility] Progress Notes by BRYAN Go at 10/25/2023 7:40 AM Author: BRYAN GoService: -Author Type: Nurse Practitioner Filed: 10/25/2023 9:31 AMEncounter Date: 10/25/2023Status: Signed Residential Advisor: BRYAN Go (Nurse Practitioner) Yanet Banks Age: [...] She is requesting to return back to [facility] as before. She is aware that her [...] Medication List: Current Outpatient Medications Ordered in [facility] MedicationSigDispenseRefill -etonogestreL-ethinyl estradioL (NUVARING) 0.12-0.015 mg/24 hr vaginal ringInsert vaginally and leave in place for 3 consecutive weeks, then remove for 1 week.1 each0 No current [facility]-ordered facility-administered medications on file. Allergies: Allergies AllergenReactions -AzithromycinHives and Diarrhea -Pertussis VaccinesHives Visit Vitals BP120/78 (Ortho BP Site: Left Upper Arm, Ortho BP Position: Sitting, Ortho BP Cuff Size: Regular Adult) Pulse(!) 56 Temp97.8 ?F (36.6 ?C) Resp16 Wt114 lb 8 oz (51.9 kg) CpR0347% BMI21.63 kg/m? Physical Exam: Physical Exam Vitals [...] Assessment and Pl (more content not included)... [facility] 07-27-2023 Note Encounter Department : [facility] Progress Notes by Maryann Mathias MD at 07/27/2023 10:20 AM Author: MENDOZA Lezamaervice: -Author Type: Physician Filed: 07/27/2023 12:42 PMEncounter Date: 07/27/2023Status: Signed Residential Advisor: Maryann Mathias MD (Physician) Yanet Banks Age: [...] Medication List: Current Outpatient Medications Ordered in [facility] MedicationSigDispenseRefill -cephALEXin (KEFLEX) 500 mg capsuleTake 1 capsule (500 mg total) by mouth in the morning and 1 capsule (500 mg total) at noon and 1 capsule (500 mg total) in the evening. Do all this for 7 days.21 capsule0 -norethindrone (KRIS) 0.35 mg tabletTake 1 tablet (0.35 mg total) by mouth daily.28 [id number] No current [facility]-ordered facility-administered medications on file. Allergies: Allergies AllergenReactions -AzithromycinHives and Diarrhea -Pertussis VaccinesHives Visit Vitals BP106/71 Pulse78 Wt116 lb 1.6 oz (52.7 kg) UyM485% BMI21.94 kg/m? Physical Exam: Physical Exam Vitals [...] unspecified etiology (Primary) Comments: Likely viral. Continue [id number]-[id number] symptomatic treatment Orders: - POCT Rapid Strep Test Mastalgia Comments: Likely clogged milk duct. Continue massage. Warm moist heat. Antibiotics only if she notices redness or warmth Other orders - cephALEXin (KEFLEX) 500 mg capsule Dispense: 21 capsule; Refill: 0 Electronically Signed by: Maryann Mathias MD, 07/27/2023 12:42 PM [facility] 01-16-2023 Note Encounter Department : [facility] Progress Notes by BRYAN Go at 01/16/2023 9:20 AM Author: BRYAN GoService: -Author Type: Nurse Practitioner Filed: 01/16/2023 2:34 PMEncounter Date: 01/16/2023Status: Signed Residential Advisor: BRYAN Go (Nurse Practitioner) Yanet Banks Age: [...] Medication List: Current Outpatient Medications Ordered in [facility] MedicationSigDispenseRefill -norethindrone (KRIS) 0.35 mg tabletTake 1 tablet (0.35 mg total) by mouth daily.28 [id number] No current [facility]-ordered facility-administered medications on file. Allergies: Allergies AllergenReactions -AzithromycinHives and Diarrhea -Pertussis VaccinesHives Visit Vitals BP108/70 (Ortho BP Site: Left Upper Arm, Ortho BP Position: Sitting, Ortho BP Cuff Size: Adult) Pulse68 Temp97.4 ?F (36.3 ?C) Resp16 Wt120 lb 4.8 oz (54.6 kg) QaN992% BMI22.73 kg/m? Physical Exam: Physical Exam Vitals [...] regimen is e (more content not included)... [facility] 11-19-2022 Note 11/19/22 1100 History Consult Follow-up;Discharge teaching Pt states baby well and with good frequency. Reports latch is improving. Discharge teaching reviewed/complete. Card given. No questions at this time. [facility] 11-19-2022 Note @HOSPITAL SUMMARY AT DISCHARGE OBSTETRICS [...] 7.1 oz) ADDITIONAL DIAGNOSES / COMMENTS: none [facility] 11-19-2022 Note Problem: Constipatio n Goal: Active [...] Infant Feeding - Ineffective, Risk of Goal: Parent- attachment Outcome: Progressing Goal: Effective breast-feeding Outcome: Progressing [facility] 11-18-2022 Note Problem: Maternal In jacques Feeding - Ineffective, Risk of Goal: Parent- attachment Outcome: Progressing Goal: Effective breast-feeding Outcome: Progressing [facility] 11-18-2022 Note ICM Progress Note Chart reviewed. ICM available as needed. DC plan: Home Estimated DC Date: November 19, 2022 Electronically signed by: Estefany Joseph RN, OB Brush Head Maker, Phone [phone]. Weekday Office Hours: 7:30-4:00. Holiday/Weekends [phone]. For urgent needs between 5p-7p, please call [phone]. If after 7pm, please call [facility] at [phone]. [facility] 11-18-2022 Note Problem: Constipatio n Goal: Active [...] Outcome: Progressing Goal: Effective breast-feeding Outcome: Progressing [facility] 11-18-2022 Note Problem: Constipatio n Goal: Active [...] Maternal Feeding - Ineffective, Risk of Goal: Parent-infant attachment Outcome: Progressing Goal: Effective breast-feeding Outcome: Progressing [facility] 09-12-2022 Note Patient presents for care. Infant active. No concerns today. Planning FBBC. S=D [...] by: Joslyn Panda MD, 04/23/2022 3:28 PM = = Triage Chief Complaint: Chief Complaint Patient presents [...] ED Vitals Temp: 98.6 F (37 C) (04/23/221415) Temp Source: Oral (04/23/221415) Pulse: 117 (04/23/22 141) Resp: 18 (04/23/221415) BP: 129/82 (04/23/221415) MAP: Noninvasive: 99 mmHg (04/23/221415) SpO2: 97 % (04/23/221415) Oxygen Source: Rm Air (04/23/221415) Vitals during ED course were reviewed and [...] limits LIPASE - Normal HEPATIC FUNCTION PANEL [facility] 04-23-2022 Emergency department Note ED Course & [...] by: Joslyn Panda MD, 04/23/2022 3:28 PM = = Triage Chief Complaint: Chief Complaint Patient presents [...] (04/23/22 1416) MAP: Noninvasive: 99 mmHg (04/23/22 141) SpO2: 97 % (04/23/22 141) Oxygen Source: Rm Air (04/23/221415) Vitals during ED course were reviewed and [...] w/d speech clear documented in this encounter [facility] 04-23-2022 Emergency department Note Arrived with reports of having diarrhea/vomiting and fever - since this am - pt states that she began feeling bad after eating dinner last night- pt states that she is 9 weeks - denies any vaginal bleeding Temp 101 per pt report - a/o x3 skin w/d speech clear [facility] Evaluation note Diagnosis Nausea vomiting and diarrhea- Primary Nausea with vomiting documented in this encounter [facility] note* Diagnosis Encounter for initial prescription of vaginal ring hormonal contraceptive documented in this encounter [facility] note* Diagnosis Encounter for supervision of normal in multigravida- Primary 8 weeks gestation of state, incidental Multiparity documented in this encounter [facility] note* Diagnosis 12 weeks gestation of - Primary state, incidental Encounter for supervision of other normal in second trimester Multiparity documented in this encounter [facility] note* Diagnosis Encounter for screening for malformation using ultrasound- Primary 12 weeks gestation of state, incidental Encounter for (NT) nuchal translucency scan Other specified screening [facility] Diagnosis Encounter for supervision of other normal in second trimester- Primary 16 weeks gestation of state, incidental documented in this encounter [facility] note* Diagnosis 20 weeks gestation of (HCC)- Primary state, incidental Encounter for supervision of other normal in second trimester (HCC) documented in this [facility]* Diagnosis Encounter for anatomic survey (HCC)- Primary Encounter for anatomic survey 20 weeks gestation of (HCC) state, incidental documented [facility] this [facility]* Diagnosis Encounter for supervision of other normal in second trimester (HCC)- Primary 24 weeks gestation of (HCC) state, incidental Screening for diabetes mellitus documented in this [facility]* Diagnosis Encounter for supervision of other normal in third trimester (HCC)- Primary 28 weeks gestation of (HCC) state, incidental [facility] Diagnosis Encounter for supervision of normal in multigravida (HCC)- Primary 30 weeks gestation of (HCC) state, incidental documented [facility] Diagnosis Encounter for supervision of other normal in third trimester (HCC)- Primary 32 weeks gestation of (HCC) state, incidental documented [facility] Diagnosis Encounter for supervision of other normal in third trimester (HCC)- Primary 34 weeks gestation of (HCC) state, incidental documented [facility] Diagnosis Encounter for supervision of other normal in third trimester (HCC)- Primary 36 weeks gestation of (HCC) state, incidental [facility]* Diagnosis Encounter for supervision of other normal in third trimester (HCC)- Primary 38 weeks gestation of (HCC) state, incidental documented [facility] [place]* Diagnosis 39 weeks gestation of (HCC)- Primary state, incidental Encounter for supervision of other normal in third trimester (HCC) documented in this [facility] Diagnosis 39 weeks gestation of (HCC)- Primary state, incidental Encounter for supervision of other normal in third trimester (HCC) documented in this [facility]* Diagnosis Encounter for supervision of other normal in third trimester (HCC)- Primary 40 weeks gestation of (HCC) state, incidental Multiparity documented in this encounter [facility]* Diagnosis Onset Date Resolution Status Admit Date 40 weeks gestation of acut e March 13, 2025 1:13am Irregular contractions acute Au 2024 1:13am Labor, prolonged latent phase acute March 13, 2025 1:13am [facility] Work Phone: Evaluation note* Diagnosis Post-term , 40-42 weeks of gestation (HCC)- Primary Post term , unspecified episode of care 40 weeks gestation of (HCC) state, incidental documented in this encounter [facility] Diagnosis Encounter for supervision of other normal in third trimester (HCC)- Primary 40 weeks gestation of (HCC) state, incidental Multiparity [facility] Date/Time March 13, 2025 2: 04am [facility] Medical Records Department [address] [place] [address] OB Triage Physician Note 03/13/25 0152 MR#: [id number] Acct: [id number] Name: YANET BANKS Rep #:[id number] : 1995 29 From: Chinyere Lehman MD PCP: Care Physician,No Primary Status :REG CLI Y Location: [address] HPI - General General Date of Admission: 03/13/25 Date of Service: 03/13/25 HPI Narrative YANET BANKS, is a 29 F 40.5 who presents for r/o labor. pt reports has been having irregular contractions all day- went to bed and felt they were getting stronger. pt denies LOF, vaginal bleeding, reports good FM. pt reports had membranes swept at office on 03/11- was 2cm/80effaced. PFSH PFSH Social History Smoking Status: Never smoker NST FHR Rate Baby A Baseline: 125 Variability:: Moderate Accelerations:: 15 x 15 Decelerations:: None NST Reactive:: Yes FHR Category:: Category I Uterine Activity:: irregular Assessment & Plan (1) 40 weeks gestation of : (2) Irregular contractions: (3) Labor, prolonged latent phase: PLAN: Plan @ 40.5 weeks c/o contractions 1) early labor reviewed with patient- minimal change in cervical exam since 03/11/25 2) NST and then DC home per patient request - declines intervention 3) labor precautions reviewed 03/13/25 0204 <Electronically signed by Chinyere Clay MD> Date _ Chinyere Enamorado MD Cosigner Signature (if applicable): Date CC: Dr Chinyere Enamorado MD; No Primary Care Physician ~ Signed [facility] Work Phone: Hospital Discharge instructions* Attachments The following attachments cannot be sent through Care Everywhere. * Nausea and Vomiting (Beninese) * Diarrhea (Beninese) * Ondansetron, ADULT (Beninese) [facility] Diagnostic Procedure Only (Routine) - Authorized Specialty Diagnoses / Procedures Referred By Kristen t Referred To Contact [facility] Diagnoses Encounter for supervision of normal in multigravida 8 weeks gestation of Procedures OBSTETRIC ULTRASOUND WHI US PREG UTERUS AFTER 1ST TRIMEST GESTATION Annie Thakur APRN.CNM [address] [place] [address] [facility] [place] [address] Referral ID Status Reason Start Date Expiration Date Visits Requested Visits Authorized [id number] Authorized Auto-Generat ed Referral 07/31/2024 07/31/2025 1 1 * Diagnostic Procedure Only (Routine) - Authorized Specialty Diagnoses / Procedures Referred By Kristen alston Referred To Contact [facility] Diagnoses Encounter for supervision of normal in multigravida 8 weeks gestation of Procedures OBSTETRIC ULTRASOUND WHI US PREG UTERUS AFTER 1ST TRIMEST GESTATION Annie Thakur APRN.CNM [address] [place] [address] [facility] [place] [address] Referral ID Status Reason Start Date Expiration Date Visits Requested Visits Authorized [id number] Authorized Auto-Generat ed Referral 07/31/2024 07/31/2025 1 1 [facility] ([facility]arrative)No reason for referral information availableWooBlanchard [facility] Work Phone: Summary Purpose Family History No Family History Records FoundNo Family History Records FoundNo Family History Records FoundNo Family History Records FoundNo Family History Records Found Advance Directives No Advanced Directives Records Found Date Activated Date Inactivated Comments 12/30/2020 3:55 AM 12/31/2020 11:00 PM For an orde r other than full code, level of care order must be completed and signed and level of care order set initiated. Chief Complaint and Reason for Visit Chief Complaint Admit Date RULE OUT LABOR March 13, 2025 1: 13am Reason for Visit Admit Date 40 weeks gestation of February 152024 1:13am Irregular contractions March 13, 2025 1:13am Labor, prolonged latent phase February 1:13am Additional Source Comments Reason for Visit (unrecogniz ed section and content) Reason Comments Vomiting Reason Comments Medication Refill Reason Comments Initial OB Visit Reason Comments PRAF Reason Onset Date Comments Care 08/28/2024 Reason Comments US Specialty Diagnoses / Procedures Referred By Kristen alston Referred To Contact [facility] Diagnoses Encounter for supervision of normal in multigravida 8 weeks gestation of Procedures OBSTETRIC ULTRASOUND WHI US PREG UTERUS AFTER 1ST TRIMEST GESTATION Annie Thakur, ARGENIS.CNM [address] [place] [address] Phone: tel: fax: [facility] [place] [address] Referral ID Status Reason Start Date Expiration Date V isits Requested Visits Authorized [id number] Closed Auto-Generate d Referral 07/31/2024 07/31/2025 1 1 Reason Onset Date Comments Care 09/24/2024 Reason Onset Date Comments Care 10/23/2024 Specialty Diagnoses / Procedures Referred By Kristen alston Referred To Contact [facility] Diagnoses Encounter for supervision of normal in multigravida (HCC) 8 weeks gestation of (HCC) Procedures OBSTETRIC ULTRASOUND WHI US PREG UTERUS AFTER 1ST TRIMEST GESTATION Annie Thakur, ARGENIS.CNM [address] [place] [address] Phone: tel: fax: [facility] [place] [address] Referral ID Status Reason Start Date Expiration Date V isits Requested Visits Authorized [id number] Closed Auto-Generate d Referral 07/31/2024 07/31/2025 1 1 Reason Comments Sr Community Manager - Other PRAF Reason Onset Date Comments [...] Comments Care 03/11/2025 Reason Comments OB Contractions Specialty Diagnoses / Procedures Referred By Contac t Referred To Contact [facility] Diagnoses Encounter for supervision of other normal in third trimester (HCC) 40 weeks gestation of (HCC) Procedures OBSTETRIC ULTRASOUND WHI US PREG UTERUS AFTER 1ST TRIMEST GESTATION Khadra Mancini APRN.CNCandice [address] [place] [address] Phone: tel: fax: [address] [place] [address] Referral ID Status Reason Start Date Expiration Date V isits Requested Visits Authorized [id number] Closed Auto-Generate d Referral 03/11/2025 03/11/2026 3 1 Reason Onset Date Comments Care 03/14/2025 Scheduled Active and Recently Administ ered Medications [...] Care Teams (unrecognized sec tion and content) Medical Review Specialist Relationship Specialty Start Date End Date Maryann Mathias MD [address] [place] [id number] PCP - General Family Practice 04/23/22 Medical Review Specialist Relationship Specialty Start Date End Date Maryann Mathias MD [address] [place] [id number] PCP - General Family Medicine 12/03/19 Team Status: Active Member Role/Relationship Status Dates Dr. Terence Gifford MD Family Provider Active No Primary Care Physician Primary Care Provider Active Team Status: Inactive Member Role/Relationship Status Dates Dr. Chinyere Enamorado MD Attending Provider Active Start: March 13, 2025 End: March 13, 2025 No Primary Care Physician Primary Care Provider Active Start: March 13, 2025 End: March 13, 2025 INFORMATION SOURCE (unrecogn ized section and content) DATE CREATED AUTHOR 11/28/2022 [facility] DATE CREATED AUTHOR AUTHOR'S ORGANIZ ATION 04/09/2023 [facility] DATE CREATED AUTHOR AUTHOR'S ORGANIZ ATION 10/26/2023 [facility] DATE CREATED AUTHOR AUTHOR'S ORGANIZ ATION 03/12/2025 [facility] DATE CREATED AUTHOR AUTHOR'S ORGANIZ ATION 03/14/2025 [facility] Source Comments (unrecognize d section and content) In the event this informatio n is protected by the Federal Confidentiality of Alcohol and Drug Abuse Patient Records regulations: The Federal rules restrict any use of the information to criminally investigate or prosecute any alcohol or drug abuse patient.[facility] the event this information is protected by the Federal Confidentiality of Alcohol and Drug Abuse Patient Records regulations: The Federal rules restrict any use of the information to criminally investigate or prosecute any alcohol or drug abuse patient.[facility] the event this information is protected by the Federal Confidentiality of Alcohol and Drug Abuse Patient Records regulations: The Federal rules restrict any use of the information to criminally investigate or prosecute any alcohol or drug abuse patient.[facility]In the event this information is protected by the Federal Confidentiality of Alcohol and Drug Abuse Patient Records regulations: The Federal rules restrict any use of the information to criminally investigate or prosecute any alcohol or drug abuse patient.[facility] CampusIn the event this information is protected by the Federal Confidentiality of Alcohol and Drug Abuse Patient Records regulations: The Federal rules restrict any use of the information to criminally investigate or prosecute any alcohol or drug abuse patient.[facility] CampusIn the event this information is protected by the Federal Confidentiality of Alcohol and Drug Abuse Patient Records regulations: The Federal rules restrict any use of the information to criminally investigate or prosecute any alcohol or drug abuse patient.[facility] CampusIn the event this information is protected by the Federal Confidentiality of Alcohol and Drug Abuse Patient Records regulations: The Federal rules restrict any use of the information to criminally investigate or prosecute any alcohol or drug abuse patient.[facility] CampusIn the event this information is protected by the Federal Confidentiality of Alcohol and Drug Abuse Patient Records regulations: The Federal rules restrict any use of the information to criminally investigate or prosecute any alcohol or drug abuse patient.[facility] CampusIn the event this information is protected by the Federal Confidentiality of Alcohol and Drug Abuse Patient Records regulations: The Federal rules restrict any use of the information to criminally investigate or prosecute any alcohol or drug abuse patient.[facility] CampusIn the event this information is protected by the Federal Confidentiality of Alcohol and Drug Abuse Patient Records regulations: The Federal rules restrict any use of the information to criminally investigate or prosecute any alcohol or drug abuse patient.[facility] CampusIn the event this information is protected by the Federal Confidentiality of Alcohol and Drug Abuse Patient Records regulations: The Federal rules restrict any use of the information to criminally investigate or prosecute any alcohol or drug abuse patient.[facility] CampusIn the event this information is protected by the Federal Confidentiality of Alcohol and Drug Abuse Patient Records regulations: The Federal rules restrict any use of the information to criminally investigate or prosecute any alcohol or drug abuse patient.[facility] CampusIn the event this information is protected by the Federal Confidentiality of Alcohol and Drug Abuse Patient Records regulations: The Federal rules restrict any use of the information to criminally investigate or prosecute any alcohol or drug abuse patient.[facility] CampusIn the event this information is protected by the Federal Confidentiality of Alcohol and Drug Abuse Patient Records regulations: The Federal rules restrict any use of the information to criminally investigate or prosecute any alcohol or drug abuse patient.[facility] CampusIn the event this information is protected by the Federal Confidentiality of Alcohol and Drug Abuse Patient Records regulations: The Federal rules restrict any use of the information to criminally investigate or prosecute any alcohol or drug abuse patient.[facility] CampusIn the event this information is protected by the Federal Confidentiality of Alcohol and Drug Abuse Patient Records regulations: The Federal rules restrict any use of the information to criminally investigate or prosecute any alcohol or drug abuse patient.[facility] CampusIn the event this information is protected by the Federal Confidentiality of Alcohol and Drug Abuse Patient Records regulations: The Federal rules restrict any use of the information to criminally investigate or prosecute any alcohol or drug abuse patient.[facility] CampusIn the event this information is protected by the Federal Confidentiality of Alcohol and Drug Abuse Patient Records regulations: The Federal rules restrict any use of the information to criminally investigate or prosecute any alcohol or drug abuse patient.[facility] CampusIn the event this information is protected by the Federal Confidentiality of Alcohol and Drug Abuse Patient Records regulations: The Federal rules restrict any use of the information to criminally investigate or prosecute any alcohol or drug abuse patient.[facility] CampusIn the event this information is protected by the Federal Confidentiality of Alcohol and Drug Abuse Patient Records regulations: The Federal rules restrict any use of the information to criminally investigate or prosecute any alcohol or drug abuse patient.[facility] CampusIn the event this information is protected by the Federal Confidentiality of Alcohol and Drug Abuse Patient Records regulations: The Federal rules restrict any use of the information to criminally investigate or prosecute any alcohol or drug abuse patient.[facility] CampusIn the event this information is protected by the Federal Confidentiality of Alcohol and Drug Abuse Patient Records regulations: The Federal rules restrict any use of the information to criminally investigate or prosecute any alcohol or drug abuse patient.[facility] CampusIn the event this information is protected by the Federal Confidentiality of Alcohol and Drug Abuse Patient Records regulations: The Federal rules restrict any use of the information to criminally investigate or prosecute any alcohol or drug abuse patient.[facility] CampusIn the event this information is protected by the Federal Confidentiality of Alcohol and Drug Abuse Patient Records regulations: The Federal rules restrict any use of the information to criminally investigate or prosecute any alcohol or drug abuse patient.[facility] CampusIn the event this information is protected by the Federal Confidentiality of Alcohol and Drug Abuse Patient Records regulations: The Federal rules restrict any use of the information to criminally investigate or prosecute any alcohol or drug abuse patient.[facility] CampusIn the event this information is protected by the Federal Confidentiality of Alcohol and Drug Abuse Patient Records regulations: The Federal rules restrict any use of the information to criminally investigate or prosecute any alcohol or drug abuse patient.[facility] CampusIn the event this information is protected by the Federal Confidentiality of Alcohol and Drug Abuse Patient Records regulations: The Federal rules restrict any use of the information to criminally investigate or prosecute any alcohol or drug abuse patient.[facility] Goals (unrecognized section and content) Goals may be documented in a n alternate section FOR RECORDS PERTAINING TO PATIENTS WHO ARE [...] BE BASED ON THE PRIMARY CLINICAL RECORDS. [facility] provides no warranty or guarantee of the accuracy or completeness of information in this document.
--- OUTSIDE RECORDS SUMMARY | 2025-03-15 21:15 | XMS RPT_ITS | CCD ---
Author Organization [facility] Care Team Providers Care Doctor Naturopathic Name Role Phone Stew ARROYO, Maryann Harrell Primary Care Provider [phone] JOSLYN PANDA Attending Unavailable STEW, MARYANN R Primary Care Unavailable ALBERTA NOEL Attending Unavailable ALBERTA NOLE Referring Unavailable STEW, MARYANN R Primary Care [...] STEW, MARYANN R Primary Care Unavailable MAX ALU Attending Unavailable STEW, MARYANN R Primary Care [...] Attending Unavailable Fei ARROYO, Dr. Whitlock Attending [facility] er Care Physician, No Primary Primary Care Provider Unavailable Chinyere Enamorado Attending Unavail able Care Physician, No Primary Primary Care Unava ilable Allergies Allergy Classification Reported Allergen(s) Allergy Type Date of Onset Reaction(s) Facility (20 sources) Azithromycin; Translations: [AZITHROMYCIN] Drug Allergy 0 Hives, Diarrhea, GI Upset [facility] (5 sources) Pertussis Vaccines; Translations: [PERTUSSIS VACCINES] Propensity to adverse reactions 2 Hives [facility] (20 sources) Tetanus Vaccines And Toxoid; Translations: [TETANUS VACCINES AND TOXOID] Propensity to adverse reactions 0 [facility] Medications Current Medications Medication Drug Class(es) Dates Sig (Normalized) Sig (Original) 21 day ethinyl estradiol 0.601947 mg/hr / etonogestrel 0.005 mg/hr vaginal system [...] 07/31/2024 07/31/2024 Discontinued (Discontinued by Patient) levonorgestrel 0.887849 mg/hr intrauterine system (1 source) Progestin, Progestin-containin [...] of ; Translations: [32 weeks gestation of ([facility])] Onset: 01-14-2025 Episodic Residual codes; unclassified (1 source) 28 weeks gestation of ; Translations: [28 weeks gestation of ([facility])] Onset: 12-17-2024 Episodic Unclassified (2 sources) Abdominal [...] Facil ity Examination level ultrasound on 03-14-2025 [facility] Radiology Study observation (narrative) [facility] URINE OB DIP B/Oon Glucose Ql (U) Negative Neg mg/dL [facility] Interpretation and review of laboratory results Normal [facility] Protein.monoclonal (U) [Mass/Vol] trace Neg mg/dL [facility] OB Triage Physician Noteon 0 03-13-2025 OB Triage Physician Note [facility] Medical Records Department [address] [place] [address] OB Triage Physician Note 03/13/25 0152 MR#: [id number] Acct: [id number] Name: YANET BANKS Rep #: [id number] : 1995 29 From: Chinyere Enamorado MD PCP: Care Physician,No Primary Status:REG CLI Y Location: [id number] HPI - General General Date of Admission: [...] Enamorado MD; No Primary Care Physician Signed [facility] 03-12-2025 [facility] Telephone (OBGYWM) YANET BANKS ([id number]) 1995 F Date Time Provider Department 03/12/25 [...] aware that MAGDIEL and CP are not cotton jammer today. CORA notified. Updated HANDP faxed to [...] Status:Closed by NICA LAW on 03/12/25 Normal [facility] URINE OB DIP B/Oon Glucose Ql (U) Negative Neg mg/dL [facility] Interpretation and review of laboratory results Normal [facility] Protein.monoclonal (U) [Mass/Vol] Negative Neg mg/dL [facility] CNPNon 03-07-2025 CNP[facility] Telephone (OBGYWM) YANET BANKS ([id number]) 1995 F Date Time Provider Department 03/07/25 ANNIE THAKUR During your visit today, we recorded the following information about you: Erasto Brunson LPN 03/07/2025 3:28 PM Signed Faxed signed water consent to [facility] 03/07/2025. Erasto Brunson LPN Allergies As [...] Status:Closed by ERASTO BRUNSON on 03/07/25 Normal [facility] URINE OB DIP B/Oon 5 Glucose Ql (U) Negative Neg mg/dL [facility] Interpretation and review of laboratory results Normal [facility] Protein.monoclonal (U) [Mass/Vol] Negative Neg mg/dL [facility] URINE OB DIP B/Oon 5 Glucose Ql (U) Negative Neg mg/dL [facility] Interpretation and review of laboratory results Normal [facility] Protein.monoclonal (U) [Mass/Vol] Negative Neg mg/dL [facility] URINE OB DIP B/Oon 5 Glucose Ql (U) Negative Neg mg/dL [facility] Interpretation and review of laboratory results Normal [facility] Protein.monoclonal (U) [Mass/Vol] Negative Neg mg/dL [facility] ROUTINE, GROUP B ST REPTOCOCCUS BY PCRon 02-11-2025 ROUTINE, GROUP B STREPTOCOCCUS BY PCR Not detected Normal [facility] Comment on above: Performed By: #### L [id number] #### [facility] CLIA [id number] [address] [place] [address] [place] URINE OB DIP B/Oon Glucose Ql (U) Negative Neg mg/dL [facility] Protein.monoclonal (U) [Mass/Vol] Negative Neg mg/dL [facility] CNPNon 01-28-2025 CNPN Telephone (OBGYWM) YANET BANKS ([id number]) 1995 F Date Time Provider Department 01/28/25 [...] Status:Closed by LOLIS ANDERS on 01/29/25 Normal [facility] 01-01-2025 [facility] Telephone ([id number]) YANET BANKS ([id number]) 1995 F Date Time Provider Department 01/01/25 NICA URIARTE [id number] During your visit today, we recorded the [...] MA - Fully Assessed Reason for Visit: Lime Slaker - Other [3602] Cmt: PRAF Prescriptions as of 01/01/2025 - PNV no.95/ferrous fum/folic ac ( ORAL) Take 8 tablets by mouth once daily. Problem List As Of Date 01/01/2025 Noted Resolved Oligomenorrhea [N91.5] 12/08/2009 12/31/2024 Dysmenorrhea [N94.6] 12/08/2009 08/28/2024 Encounter for supervision of normal i*07/31/2024 Multiparity [Z64.1] 07/31/2024 Encounter Status:Closed by NICA URIARTE on 01/01/25 Normal [facility] CBC W Auto Differential pane l (Bld)on 12-17-2024 Basophils (Bld) [#/Vol] 10*3/uL Normal <0.11 [facility] Comment on above: Order Comment: Speci men Type: FLUID SPECIMEN Ordering Facility: [facility] Address: [address] [place] [address] Performed By: #### L [id number] #### [facility] CLIA [id number] [address] [place] [address] [place] Basophils/100 WBC (Bld) 0.3 % Normal [facility] Comment on above: Order Comment: Speci men Type: FLUID SPECIMEN Ordering Facility: [facility] Address: [address] [place] [address] Performed By: #### L [id number] #### [facility] CLIA [id number] [address] [place] [address] [place] Differential cell count method Nom (Bld) Auto Normal [facility] Comment on above: Order Comment: Speci men Type: FLUID SPECIMEN Ordering Facility: [facility] Address: [address] [place] [address] Performed By: #### L [id number] #### [facility] CLIA [id number] [address] [place] [address] [place] Eosinophils (Bld) [#/Vol] 0.11 10*3/uL Normal <0.46 [facility] Comment on above: Order Comment: Speci men Type: FLUID SPECIMEN Ordering Facility: [facility] Address: [address] [place] [address] Performed By: #### L [id number] #### [facility] CLIA [id number] [address] [place] [address] [place] Eosinophils/100 WBC (Bld) 1.5 % Normal [facility] Comment on above: Order Comment: Speci men Type: FLUID SPECIMEN Ordering Facility: [facility] Address: [address] [place] [address] Performed By: #### L [id number] #### [facility] CLIA [id number] [address] [place] [address] [place] Erythrocyte distribution width (RBC) [Ratio] 12.7 % Normal 11.5-15.0 [facility] Comment on above: Order Comment: Speci men Type: FLUID SPECIMEN Ordering Facility: [facility] Address: [address] [place] [address] Performed By: #### L [id number] #### [facility] CLIA [id number] [address] [place] [address] [place] Hematocrit (Bld) [Volume fraction] 37.0 % Normal 36.0-46.0 [facility] Comment on above: Order Comment: Speci men Type: FLUID SPECIMEN Ordering Facility: [facility] Address: [address] [place] [address] Performed By: #### L [id number] #### [facility] CLIA [id number] [address] [place] [address] [place] Hemoglobin (Bld) [Mass/Vol] 13.2 g/dL Normal 11.5-15.5 [facility] Comment on above: Order Comment: Speci men Type: FLUID SPECIMEN Ordering Facility: [facility] Address: [address] [place] [address] Performed By: #### L [id number] #### [facility] CLIA [id number] [address] [place] [address] [place] Immature granulocytes (Bld) [#/Vol] 0.05 10*3/uL Normal <0.10 [facility] Comment on above: Order Comment: Speci men Type: FLUID SPECIMEN Ordering Facility: [facility] Address: [address] [place] [address] Performed By: #### L [id number] #### [facility] CLIA [id number] [address] [place] [address] [place] Immature granulocytes/100 WBC (Bld) 0.7 % Normal [facility] Comment on above: Order Comment: Speci men Type: FLUID SPECIMEN Ordering Facility: [facility] Address: [address] [place] [address] Performed By: #### L [id number] #### [facility] CLIA [id number] [address] [place] [address] [place] Lymphocytes (Bld) [#/Vol] 1.56 10*3/uL Normal 1.00-4.00 [facility] Comment on above: Order Comment: Speci men Type: FLUID SPECIMEN Ordering Facility: [facility] Address: [address] [place] [address] Performed By: #### L [id number] #### [facility] CLIA [id number] [address] [place] [address] [place] Lymphocytes/100 WBC (Bld) 21.3 % Normal [facility] Comment on above: Order Comment: Speci men Type: FLUID SPECIMEN Ordering Facility: [facility] Address: [address] [place] [address] Performed By: #### L [id number] #### [facility] CLIA [id number] [address] [place] [address] [place] MCH (RBC) [Entitic mass] 32.8 pg Normal 26.0-34.0 [facility] Comment on above: Order Comment: Speci men Type: FLUID SPECIMEN Ordering Facility: [facility] Address: [address] [place] [address] Performed By: #### L [id number] #### [facility] CLIA [id number] [address] [place] [address] [place] MCHC (RBC) [Mass/Vol] 35.7 g/dL Normal 30.5-36.0 [facility] Comment on above: Order Comment: Speci men Type: FLUID SPECIMEN Ordering Facility: [facility] Address: [address] [place] [address] Performed By: #### L [id number] #### [facility] CLIA [id number] [address] [place] [address] [place] MCV (RBC) [Entitic vol] 92.0 fL Normal 80.0-100.0 [facility] Comment on above: Order Comment: Speci men Type: FLUID SPECIMEN Ordering Facility: [facility] Address: [address] [place] [address] Performed By: #### L [id number] #### [facility] CLIA [id number] [address] [place] [address] [place] Monocytes (Bld) [#/Vol] 0.54 10*3/uL Normal <0.87 [facility] Comment on above: Order Comment: Speci men Type: FLUID SPECIMEN Ordering Facility: [facility] Address: [address] [place] [address] Performed By: #### L [id number] #### [facility] CLIA [id number] [address] [place] [address] [place] Monocytes/100 WBC (Bld) 7.4 % Normal [facility] Comment on above: Order Comment: Speci men Type: FLUID SPECIMEN Ordering Facility: [facility] Address: [address] [place] [address] Performed By: #### L [id number] #### [facility] CLIA [id number] [address] [place] [address] [place] Neutrophils (Bld) [#/Vol] 5.06 10*3/uL Normal 1.45-7.50 [facility] Comment on above: Order Comment: Speci men Type: FLUID SPECIMEN Ordering Facility: [facility] Address: [address] [place] [address] Performed By: #### L [id number] #### [facility] CLIA [id number] [address] [place] [address] [place] Neutrophils/100 WBC (Bld) 68.8 % Normal [facility] Comment on above: Order Comment: Speci men Type: FLUID SPECIMEN Ordering Facility: [facility] Address: [address] [place] [address] Performed By: #### L [id number] #### [facility] CLIA [id number] [address] [place] [address] [place] Nucleated RBC (Bld) [#/Vol] 10*3/uL Normal <0.01 [facility] Comment on above: Order Comment: Speci men Type: FLUID SPECIMEN Ordering Facility: [facility] Address: [address] [place] [address] Performed By: #### L [id number] #### [facility] CLIA [id number] [address] [place] [address] [place] Nucleated RBC/100 WBC (Bld) [Ratio] 0.0 /100 WBC Normal [facility] Comment on above: Order Comment: Speci men Type: FLUID SPECIMEN Ordering Facility: [facility] Address: [address] [place] [address] Performed By: #### L [id number] #### [facility] CLIA [id number] [address] [place] [address] [place] Platelet mean volume (Bld) [Entitic vol] 9.0 fL Normal 9.0-12.7 [facility] Comment on above: Order Comment: Speci men Type: FLUID SPECIMEN Ordering Facility: [facility] Address: [address] [place] [address] Performed By: #### L [id number] #### [facility] CLIA [id number] [address] [place] [address] [place] Platelets (Bld) [#/Vol] 252 10*3/uL Normal 150-400 [facility] Comment on above: Order Comment: Speci men Type: FLUID SPECIMEN Ordering Facility: [facility] Address: [address] [place] [address] Performed By: #### L [id number] #### [facility] CLIA [id number] [address] [place] [address] [place] RBC (Bld) [#/Vol] 4.02 10*6/uL Normal 3.90-5.20 [facility] Comment on above: Order Comment: Speci men Type: FLUID SPECIMEN Ordering Facility: [facility] Address: [address] [place] [address] Performed By: #### L [id number] #### [facility] CLIA [id number] [address] [place] [address] [place] WBC (Bld) [#/Vol] 7.34 10*3/uL Normal 3.70-11.00 [facility] Comment on above: Order Comment: Speci men Type: FLUID SPECIMEN Ordering Facility: [facility] Address: [address] [place] [address] Performed By: #### L [id number] #### [facility] CLIA [id number] [address] [place] [address] [place] GESTATIONAL GLUCOSE SCREEN, 1-HOUR, 50 GRAM, NON-FASTINGon 12-17-2024 Glucose [Mass/Vol] 105 mg/dL Normal 74-134 [facility] Comment on above: Order Comment: Speci men Type: FLUID SPECIMEN Ordering Facility: [facility] Address: [address] [place] [address] Result Comment: [facility] Congress of Obstetricians and Gynecologists (Kasi/Michael) guidelines state a gestational diabetes mellitus positive screen is made, in women not previously diagnosed with overt diabetes, when the 1 hr plasma glucose level is equal to or above 140 mg/dL. The [facility] Credit Collections Analyst and [facility] recommends a 135 mg/dL cutoff. Performed By: #### L [id number] #### [facility] CLIA [id number] [address] [place] [address] [place] Reagin and Treponema pallidu m IgG and IgM [Interp]on 12-17-2024 T. pallidum IgG+IgM IA Ql (S) Non-Reactive Normal Nonreactive [facility] Comment on above: Order Comment: Cydney tang Type: BLOOD SPECIMEN Ordering Facility: [facility] Address: [address] [place] [address] Performed By: #### T SPN #### [facility] CLIA [id number] [address] [place] [address] [place] Reagin+T pallidum IgG+IgM Se rPl-Impon 12-17-2024 Reagin and Treponema pallidum IgG and IgM [Interp] Cannot exclude recent Treponemal infection if specimen collected within 7-10 days after appearance of suspect lesions or 2-3 weeks after an exposure. Clinical correlation is required. Normal [facility] Comment on above: Order Comment: Cydney tang Type: BLOOD SPECIMEN Ordering Facility: [facility] Address: [address] [place] [address] Performed By: #### T SPN #### [facility] CLIA [id number] [address] [place] [address] [place] CNPShama 10-24-2024 CNPN Telephone ([id number]) YANET BANKS ([id number]) 1995 F Date Time Provider Department 10/24/24 NICA URIARTE [id number] During your visit today, we recorded the [...] MA - Fully Assessed Reason for Visit: Lime Slaker - Other [3602] Cmt: PRAF Prescriptions as of 10/24/2024 - PNV no.95/ferrous fum/folic ac ( ORAL) Take 8 tablets by mouth once daily. Problem List As Of Date 10/24/2024 Noted Resolved Oligomenorrhea [N91.5] 12/08/2009 Dysmenorrhea [N94.6] 12/08/2009 08/28/2024 Encounter for supervision of normal i*07/31/2024 Multiparity [Z64.1] 07/31/2024 Encounter Status:Closed by NICA URIARTE on 10/24/24 Normal [facility] Examination level ultrasound on 10-23-2024 Indication Standard [...] 12 oz EFW by: Hadlock (HC-AC-FL) Extended Precision Lens Grinder 6.5 mm CM 3.9 mm 13% Nicolaides [...] normal LVOT view: normal 3-vessel view: normal 1-giucop-gqnltsu view: normal Heart / Thorax Situs: situs [...] Read By: Geri Wilson M.D. MATERNAL MEDICINE [facility] Radiology Study observation (narrative) [facility] Examination level ultrasound on 08-28-2024 Indication First trimester anatomic survey Impression REMOTE READ The patient is referred for a first trimester anatomy scan including nuchal translucency measurement as clinically indicated. - Single, live, intrauterine . - [place] rump length measurement is consistent with the [...] view: suboptimal 4-chamber view with color: suboptimal 2-ewaelr-ebdlrue view: suboptimal Abdominal cord insertion: normal Stomach: [...] Read By: Geri Wilson M.D. MATERNAL MEDICINE [facility] Radiology Study observation (narrative) [facility] CNPShama 08-01-2024 CNPN Telephone (OGFVWE) YANET BANKS ([id number]) 1995 F Date Time Provider Department 08/01/24 NURSE CLINICAL RESEARCH MANAGER FRVW ROSWELL OGFVWE During your visit today, we recorded [...] Status:Closed by SHI MEDLEY on 08/01/24 Normal [facility] Bacteria Ur Culton Bacteria identified Cx Nom (U) CULTURE, URINE: No growth (<1,000 CFU/ml) Normal [facility] Comment on above: Performed By: #### L [id number] #### [facility] CLIA [id number] [address] [place] [address] [place] C. trachomatis+N. gonorrhoea e DNA MICHAEL+probe Ql (Unsp spec)on 07-31-2024 C. trachomatis rRNA MICHAEL+probe Ql (Unsp spec) Not detected Normal Not detected [facility] Comment on above: Order Comment: Speci men Type: FLUID SPECIMEN Ordering Facility: [facility] Address: [address] [place] [address] Performed By: #### L [id number] #### [facility] CLIA [id number] [address] [place] [address] [place] N. gonorrhoeae rRNA MICHAEL+probe Ql (Unsp spec) Not detected Normal Not detected [facility] Comment on above: Order Comment: Speci men Type: FLUID SPECIMEN Ordering Facility: [facility] Address: [address] [place] [address] Performed By: #### L [id number] #### [facility] CLIA [id number] [address] [place] [address] [place] CBC W Auto Differential pane l (Bld)on 07-31-2024 Basophils (Bld) [#/Vol] 10*3/uL Normal <0.11 [facility] Comment on above: Order Comment: Speci men Type: BLOOD SPECIMEN Ordering Facility: [facility] Address: [address] [place] [address] Performed By: #### 5 7021-8 #### [facility] CLIA [id number] [address] [place] [address] [place] Basophils/100 WBC (Bld) 0.3 % Normal [facility] Comment on above: Order Comment: Speci men Type: BLOOD SPECIMEN Ordering Facility: [facility] Address: [address] [place] [address] Performed By: #### 5 7021-8 #### [facility] CLIA [id number] [address] [place] [address] [place] Differential cell count method Nom (Bld) Auto Normal [facility] Comment on above: Order Comment: Speci men Type: BLOOD SPECIMEN Ordering Facility: [facility] Address: [address] [place] [address] Performed By: #### 5 7021-8 #### [facility] CLIA [id number] [address] [place] [address] [place] Eosinophils (Bld) [#/Vol] 0.11 10*3/uL Normal <0.46 [facility] Comment on above: Order Comment: Speci men Type: BLOOD SPECIMEN Ordering Facility: [facility] Address: [address] [place] [address] Performed By: #### 5 7021-8 #### [facility] CLIA [id number] [address] [place] [address] [place] Eosinophils/100 WBC (Bld) 1.4 % Normal [facility] Comment on above: Order Comment: Speci men Type: BLOOD SPECIMEN Ordering Facility: [facility] Address: [address] [place] [address] Performed By: #### 5 7021-8 #### [facility] CLIA [id number] [address] [place] [address] [place] Erythrocyte distribution width (RBC) [Ratio] 11.8 % Normal 11.5-15.0 [facility] Comment on above: Order Comment: Speci men Type: BLOOD SPECIMEN Ordering Facility: [facility] Address: [address] [place] [address] Performed By: #### 5 7021-8 #### [facility] CLIA [id number] [address] [place] [address] [place] Hematocrit (Bld) [Volume fraction] 40.5 % Normal 36.0-46.0 [facility] Comment on above: Order Comment: Speci men Type: BLOOD SPECIMEN Ordering Facility: [facility] Address: [address] [place] [address] Performed By: #### 5 7021-8 #### [facility] CLIA [id number] [address] [place] [address] [place] Hemoglobin (Bld) [Mass/Vol] 14.2 g/dL Normal 11.5-15.5 [facility] Comment on above: Order Comment: Speci men Type: BLOOD SPECIMEN Ordering Facility: [facility] Address: [address] [place] [address] Performed By: #### 5 7021-8 #### [facility] CLIA [id number] [address] [place] [address] [place] Immature granulocytes (Bld) [#/Vol] 0.03 10*3/uL Normal <0.10 [facility] Comment on above: Order Comment: Speci men Type: BLOOD SPECIMEN Ordering Facility: [facility] Address: [address] [place], [place] [address] Performed By: #### 5 7021-8 #### [facility] CLIA [id number] [address] [place] [address] [place] Immature granulocytes/100 WBC (Bld) 0.4 % Normal [facility] Comment on above: Order Comment: Speci men Type: BLOOD SPECIMEN Ordering Facility: [facility] Address: [address] [place] [address] Performed By: #### 5 7021-8 #### [facility] CLIA [id number] [address] [place] [address] [place] Lymphocytes (Bld) [#/Vol] 2.09 10*3/uL Normal 1.00-4.00 [facility] Comment on above: Order Comment: Speci men Type: BLOOD SPECIMEN [facility] [facility] Address: [address] [place] [address] Performed By: #### 5 7021-8 #### [facility] CLIA [id number] [address] [place] [address] [place] Lymphocytes/100 WBC (Bld) 26.5 % Normal [facility] Comment on above: Order Comment: Speci men Type: BLOOD SPECIMEN Ordering Facility: [facility] Address: [address] [place] [address] Performed By: #### 5 7021-8 #### [facility] CLIA [id number] [address] [place] [address] [place] MCH (RBC) [Entitic mass] 31.7 pg Normal 26.0-34.0 [facility] Comment on above: Order Comment: Speci men Type: BLOOD SPECIMEN Ordering Facility: [facility] Address: [address] [place] [address] Performed By: #### 5 7021-8 #### [facility] CLIA [id number] [address] [place] [address] [place] MCHC (RBC) [Mass/Vol] 35.1 g/dL Normal 30.5-36.0 [facility] Comment on above: Order Comment: Speci men Type: BLOOD SPECIMEN Ordering Facility: [facility] Address: [address] [place] [address] Performed By: #### 5 7021-8 #### [facility] CLIA [id number] [address] [place] [address] [place] MCV (RBC) [Entitic vol] 90.4 fL Normal 80.0-100.0 [facility] Comment on above: Order Comment: Speci men Type: BLOOD SPECIMEN Ordering Facility: [facility] Address: [address] [place] [address] Performed By: #### 5 7021-8 #### [facility] CLIA [id number] [address] [place] [address] [place] Monocytes (Bld) [#/Vol] 0.48 10*3/uL Normal <0.87 [facility] Comment on above: Order Comment: Speci men Type: BLOOD SPECIMEN Ordering Facility: [facility] Address: [address] [place] [address] Performed By: #### 5 7021-8 #### [facility] CLIA [id number] [address] [place] [address] [place] Monocytes/100 WBC (Bld) 6.1 % Normal [facility] Comment on above: Order Comment: Speci men Type: BLOOD SPECIMEN Ordering Facility: [facility] Address: [address] [place] [address] Performed By: #### 5 7021-8 #### [facility] CLIA [id number] [address] [place] [address] [place] Neutrophils (Bld) [#/Vol] 5.16 10*3/uL Normal 1.45-7.50 [facility] Comment on above: Order Comment: Speci men Type: BLOOD SPECIMEN Ordering Facility: [facility] Address: [address] [place] [address] Performed By: #### 5 7021-8 #### [facility] CLIA [id number] [address] [place] [address] [place] Neutrophils/100 WBC (Bld) 65.3 % Normal [facility] Comment on above: Order Comment: Speci men Type: BLOOD SPECIMEN Ordering Facility: [facility] Address: [address] [place] [address] Performed By: #### 5 7021-8 #### [facility] CLIA [id number] [address] [place] [address] [place] Nucleated RBC (Bld) [#/Vol] 10*3/uL Normal <0.01 [facility] Comment on above: Order Comment: Speci men Type: BLOOD SPECIMEN Ordering Facility: [facility] Address: [address] [place] [address] Performed By: #### 5 7021-8 #### [facility] CLIA [id number] [address] [place] [address] [place] Nucleated RBC/100 WBC (Bld) [Ratio] 0.0 /100 WBC Normal [facility] Comment on above: Order Comment: Speci men Type: BLOOD SPECIMEN Ordering Facility: [facility] Address: [address] [place] [address] Performed By: #### 5 7021-8 #### [facility] CLIA [id number] [address] [place] [address] [place] Platelet mean volume (Bld) [Entitic vol] 9.0 fL Normal 9.0-12.7 [facility] Comment on above: Order Comment: Speci men Type: BLOOD SPECIMEN Ordering Facility: [facility] Address: [address] [place], [place] [address] Performed By: #### 5 7021-8 #### [facility] CLIA [id number] [address] [place] [address] [place] Platelets (Bld) [#/Vol] 312 10*3/uL Normal 150-400 [facility] Comment on above: Order Comment: Speci men Type: BLOOD SPECIMEN Ordering Facility: [facility] Address: [address] [place] [address] Performed By: #### 5 7021-8 #### [facility] CLIA [id number] [address] [place] [address] [place] RBC (Bld) [#/Vol] 4.48 10*6/uL Normal 3.90-5.20 [facility] Comment on above: Order Comment: Speci men Type: BLOOD SPECIMEN Ordering Facility: [facility] Address: [address] [place] [address] Performed By: #### 5 7021-8 #### [facility] CLIA [id number] [address] [place] [address] [place] WBC (Bld) [#/Vol] 7.89 10*3/uL Normal 3.70-11.00 [facility] Comment on above: Order Comment: Speci men Type: BLOOD SPECIMEN Ordering Facility: [facility] Address: [address] [place] [address] Performed By: #### 5 7021-8 #### [facility] CLIA [id number] [address] [place] [address] [place] HBV surface Ag Ser Qlon 07-17 HBV surface Ag Ql (S) Negative Normal Negative [facility] Comment on above: Order Comment: Speci men Type: BLOOD SPECIMEN Ordering Facility: [facility] Address: [address] [place] [address] Performed By: #### T SPN #### [facility] CLIA [id number] [address] [place] [address] [place] HCV Ab Ser Qlon 07-31-2024 HCV Ab Ql (S) Negative Normal Negative [facility] Comment on above: Order Comment: Speci men Type: BLOOD SPECIMEN Ordering Facility: [facility] Address: [address] [place] [address] Result Comment: The result suggests no evidence of active infection with Hepatitis C virus. Should recent infection be suspected, repeat testing may be considered 4-6 weeks after this draw. Performed By: #### T SPN #### [facility] CLIA [id number] [address] [place] [address] [place] HIGH RISK HUMAN PAPILLOMA RHINA (HPV), PCR FOR DETECTION AND GENOTYPINGon 07-31-2024 HPV 16 Ag Ql (Unsp spec) Not detected Normal Not detected [facility] Comment on above: Order Comment: Speci men Type: FLUID SPECIMEN Ordering Facility: [facility] Address: [address] [place] [address] Performed By: #### L [id number] #### [facility] CLIA [id number] [address] [place] [address] [place] HPV 18 Ag Ql (Unsp spec) Not detected Normal Not detected [facility] Comment on above: Order Comment: Speci men Type: FLUID SPECIMEN Ordering Facility: [facility] Address: [address] [place] [address] Performed By: #### L [id number] #### [facility] CLIA [id number] [address] [place] [address] [place] HPV 31+33+35+39+45+51+5 2+56+58+59+66+68 DNA MICHAEL+probe Ql (Cvx) Not detected Normal Not detected [facility] Comment on above: Order Comment: Speci men Type: FLUID SPECIMEN Ordering Facility: [facility] Address: [address] [place] [address] Result Comment: High Risk HPV Other Type includes HPV types 31, 33, 35, 39, 45, 51, 52, 56, 58, 59, 66 and 68. Performed By: #### L [id number] #### [facility] CLIA [id number] [address] [place] [address] [place] HIV 1+2 Ab IA Qlon 5 HIV 1 and 2 Ab IA.rapid Nom (S/P/Bld) Normal [facility] Comment on above: Order Comment: Speci men Type: BLOOD SPECIMEN Ordering Facility: [facility] Address: [address] [place] [address] Result Comment: Test not indicated. Performed By: #### T SPN #### [facility] CLIA [id number] [address] [place] [address] [place] HIV 1+2 Ab+HIV1 p24 Ag IA Ql Non-Reactive Normal Nonreactive [facility] Comment on above: Order Comment: Speci men Type: BLOOD SPECIMEN Ordering Facility: [facility] Address: [address] [place] [address] Performed By: #### T SPN #### [facility] CLIA [id number] [address] [place] [address] [place] HIV immunoassay testing algorithm interpretation (S/P/Bld) [Interp] Normal [facility] Comment on above: Order Comment: Speci men Type: BLOOD SPECIMEN Ordering Facility: [facility] Address: [address] [place] [address] Result Comment: No e vidence of HIV-1 or HIV-2 infection. Should recent infection be suspected, repeat testing may be considered 2-3 weeks after this draw. Treasure Rev. Code 3701.243(E): This information has been [...] Performed By: #### T SPN #### [facility] IA [id number] [address] [place] [address] [place] HbA1c (Bld)on 07-31-2024 Average glucose Estimated from glycated hemoglobin (Bld) [Mass/Vol] 82 mg/dL Normal [facility] Comment on above: Order Comment: Speci men Type: FLUID SPECIMEN Ordering Facility: [facility] Address: [address] [place] [address] Result Comment: eAG: (Estimated average glucose) is a calculated value from HgbA1c and is access services representative of the average blood glucose level in the last 2-3 month period. Performed By: #### L [id number] #### [facility] CLIA [id number] [address] [place] [address] [place] HbA1c (Bld) [Mass fraction] 4.5 % Normal 4.3-5.6 [facility] Comment on above: Order Comment: Speci men Type: FLUID SPECIMEN Ordering Facility: [facility] Address: [address] [place] [address] Result Comment: Amer [place] Diabetes Association guidelines indicate that patients with HgbA1c in the range 5.7-6.4% are at increased risk for development of diabetes, and intervention by lifestyle modification may be beneficial. HgbA1c greater or equal to 6.5% is considered diagnostic of diabetes. Performed By: #### L [id number] #### [facility] CLIA [id number] [address] [place] [address] [place] PAP TESTon 07-31-2024 ADEQUACY Satisfactory for interpretation. Normal [facility] Comment on above: Order Comment: Speci men Type: FLUID SPECIMEN Ordering Facility: [facility] Address: [address] [place] [address] Performed By: #### L [id number] #### [facility] CLIA [id number] [address] [place] [address] [place] CASE REPORT Normal [facility] Comment on above: Order Comment: Speci men Type: FLUID SPECIMEN Ordering Facility: [facility] Address: [address] [place] [address] Result Comment: Gyne cologic Cytology Report Case: [id number] Authorizing Provider: Annie Thakur APRN.CNM Collected: 07/31/2024 09:53 AM Ordering Location: OB/Gynecology Received: 07/31/2024 12:21 PM First Screen: Nica Arguello, CT, ASCP Specimen: Pap Test, ThinPrep, Cervix Performed By: #### L [id number] #### [facility] CLIA [id number] [address] [place] [address] [place] CLINICAL HISTORY, CYTOLOGY, COUNTY SHERIFF Routine Exam Normal [facility] Comment on above: Order Comment: Speci men Type: FLUID SPECIMEN Ordering Facility: [facility] Address: [address] [place] [address] Performed By: #### L [id number] #### [facility] CLIA [id number] [address] [place] [address] [place] FINAL PERFORMING LAB Normal [facility] Comment on above: Order Comment: Speci men Type: FLUID SPECIMEN Ordering Facility: [facility] Address: [address] [place] [address] Result Comment: Tech nical component, automotive upholsterer screening performed at [facility], [address] [place] [address] [place] [address] CLIA# [id number] Diagnostic interpretation performed at [facility], [address] [place], [place] [id number] CLIA# [id number] Advanced Solutions Architect: Timi Floyd M.D. Performed By: #### L [id number] #### [facility] CLIA [id number] [address] [place] [address] [place] INTERPRETATION, CYTOLOGY, COUNTY SHERIFF Normal [facility] Comment on above: Order Comment: Speci men Type: FLUID SPECIMEN Ordering Facility: [facility] Address: [address] [place] [address] Result Comment: Nega tive for intraepithelial lesion or malignancy. Performed By: #### L [id number] #### [facility] CLIA [id number] [address] [place] [address] [place] LMP 06/01/2024 Normal [facility] Comment on above: Order Comment: Speci men Type: FLUID SPECIMEN Ordering Facility: [facility] Address: [address] [place] [address] Performed By: #### L [id number] #### [facility] CLIA [id number] [address] [place] [address] [place] PAP DISCLAIMER COMMENT The Pap Smear is a screening test for cervical cancer. False negative results occur with all screening tests, emphasizing the need for rescreening at recommended intervals, and clinical correlation. Normal [facility] Comment on above: Order Comment: Speci men Type: FLUID SPECIMEN Ordering Facility: [facility] Address: [address] [place] [address] Performed By: #### L [id number] #### [facility] CLIA [id number] [address] [place] [address] [place] PAP MANAGER CHANNEL COMMENT This specimen has been analyzed by the ThinPrep Imaging System, an automated imaging and review system, which assists the laboratory in evaluating cells on ThinPrep Pap tests. Following automated imaging, selected maki from every slide are reviewed by a automotive upholsterer. Normal [facility] Comment on above: Order Comment: Speci men Type: FLUID SPECIMEN Ordering Facility: [facility] Address: [address] [place] [address] Performed By: #### L [id number] #### [facility] CLIA [id number] [address] [place] [address] [place] POC [employer] SALES REPRESENTATIVE ULTRASOUNDon 07-31-19 25 Indication Viability; confirm cardiac [...] Read By: Annie Thakur CNM MATERNAL MEDICINE [facility] Radiology Study observation (narrative) [facility] RUBELLA IGG ANTIBODYon 07-31 RUBELLA IGG AB, QUAL Positive Normal Positive [facility] Comment on above: Order Comment: Speci men Type: FLUID SPECIMEN Ordering Facility: [facility] Address: [address] [place] [address] Result Comment: The result suggests recent or past exposure to Rubella virus or history of Rubella vaccination. Positive result may also be seen due to presence of passively-transferred antibodies. Please correlate with patient's history. Performed By: #### L [id number] #### [facility] CLIA [id number] [address] [place] [address] [place] Reagin and Treponema pallidu m IgG and IgM [Interp]on 07-31-2024 T. pallidum IgG+IgM IA Ql (S) Non-Reactive Normal Nonreactive [facility] Comment on above: Order Comment: Speci men Type: BLOOD SPECIMEN Ordering Facility: [facility] Address: [address] [place] [address] Performed By: #### T SPN #### [facility] CLIA [id number] [address] [place] [address] [place] Reagin+T pallidum IgG+IgM Se rPl-Impon 07-31-2024 Reagin and Treponema pallidum IgG and IgM [Interp] Cannot exclude recent Treponemal infection if specimen collected within 7-10 days after appearance of suspect lesions or 2-3 weeks after an exposure. Clinical correlation is required. Normal [facility] Comment on above: Order Comment: Speci men Type: BLOOD SPECIMEN Ordering Facility: [facility] Address: [address] [place] [address] Performed By: #### T SPN #### [facility] CLIA [id number] [address] [place] [address] [place] TYPE + SCREEN PRENATALon ABO O Normal [facility] Comment on above: Order Comment: Speci men Type: BLOOD SPECIMEN Ordering Facility: [facility] Address: [address] [place] [address] Performed By: #### T SPN #### [facility] CLIA [id number] [address] [place] [address] [place] Rh Nom (Bld) Positive Normal [facility] Comment on above: Order Comment: Speci men Type: BLOOD SPECIMEN Ordering Facility: [facility] Address: [address] [place] [address] Performed By: #### T SPN #### [facility] CLIA [id number] [address] [place] [address] [place] TYPE AND SCREEN EXPIRATION 08/03/2024 23:59 Normal [facility] Comment on above: Order Comment: Speci men Type: BLOOD SPECIMEN Ordering Facility: [facility] Address: [address] [place] [address] Performed By: #### T SPN #### [facility] CLIA [id number] [address] [place] [address] [place] POCT URINE PREGNANCYon 10-24 HCG ( test) Ql (U) [facility] Comment on above: Order Comment: Relea se to patient->Immediate HCG ( test) Ql (U) Negative [facility] Comment on above: Order Comment: Relea se to patient->Immediate POCT RAPID STREP TESTon 07-17 EXPIRATION DATE: [facility] Comment on above: Order Comment: Relea se to patient->Immediate EXPIRATION DATE: 06/06/2024 [facility] Comment on above: Order Comment: Relea se to patient->Immediate LOT NUMBER [facility] Comment on above: Order Comment: Relea se to patient->Immediate LOT NUMBER [id number] [facility] Comment on above: Order Comment: Relea se to patient->Immediate S. pyogenes Ag IA Ql (Unsp spec) Negative [facility] Comment on above: Order Comment: Relea se to patient->Immediate S. pyogenes Ag IA Ql (Unsp spec) [facility] Comment on above: Order Comment: Relea se to patient->Immediate POCT URINE PREGNANCYon 01-16 EXPIRATION DATE: [facility] Comment on above: Order Comment: Relea se to patient->Immediate EXPIRATION DATE: 03/16/2024 [facility] Comment on above: Order Comment: Relea se to patient->Immediate HCG ( test) Ql (U) [facility] Comment on above: Order Comment: Oga se to patient->Immediate HCG ( test) Ql (U) Negative [facility] Comment on above: Order Comment: Jorge se to patient->Immediate LOT NUMBER [id number] [facility] Comment on above: Order Comment: Oga se to patient->Immediate LOT NUMBER [facility] Comment on above: Order Comment: Oga se to patient->Immediate MEDICAL STAFFon 11-19-2022 Labeling Associate Authentication Interface Message Text Reports good rest [...] Continue PP care support Teaching Discharge Normal [facility] PATIENT INSTRUCTIONSon 11-19 Labeling Associate Authentication Interface Message Text [facility] [phone] Pamper Yourself! Congratulations on the of your [...] at first be bright red. It will place change roof bolter several days to dark red, to brown, to brownish yellow, and then to white. It should not have a bad or foul odor. Let your bleeding be your guide. If you are doing too much at home, your bleeding will increase and become bright red again. This will be your sign to take it easy. 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 Bottle feeding mothers can expect to have [...] you become (more content not included)... Normal [facility] NOTEon 11-18-2022 Labeling Associate Authentication Interface Message Text 11/18/22 9912 History Consult Breastfed Previous Child Yes Breastfed Previous Child for 3-6 months (pumped also) Breasts/Nipples Left Breast Soft;Reported by patient Right Breast Soft;Reported by patient Left Nipple Intact;Tender;Reporte d by patient Right Nipple Intact;Tender;Reporte d by patient Interventions General Interventions [id number];On cue feeding;Assist to awaken Nipple Management Assess [...] with and questions, concerns or assistance needed. [facility] Labeling Associate [employer] Interface Message Text 11/18/22 1220 History Consult Patient unavailable;Other/com ment (Pt sleeping) [facility] Property Owlation Interface Message Text 11/18/22 1032 History Consult Other/comment (Pt has visitors at this time and requests that come back later.) [facility] MEDICAL STAFFon 11-18-2022 Labeling Associate Authentication Interface Message Text Reports good rest [...] Stable Breast Continue PP care support Teaching [facility] H&Jose 11-17-2022 PodPonics Interface Message Text Attestation signed by Sharyn Waldron MD at 11/17/22 4574 I have reviewed this patient's H noted in triage. If persists, will need labs and L [facility] Obstetrics Admission Note Patient Name: Yanet Banks : 1995 11/17/2022 8:12 PM MEDICAL DECISION MAKING: records reviewed. Case discussed with Dr. Waldron, technical information specialist Differential Diagnosis:n/a Interventions: NST Assessment/Plan 26 year [...] Final Glucose (more content not included)... Normal [facility] L&D DELIVERYon 11-17-2022 Labeling Associate Authentication Interface Message Text [facility] Spontaneous Vaginal Delivery Note Delivery Summary for Yanet Banks : 1995 Information for the patient's : Partha Banks [[id number]] Delivery Information: Date/Time of Delivery: 11/17/2022 8:50 PM By: Normal Spontaneous Vaginal Delivery Clinician: Dustin Benavides Maternal Information: Episiotomy: None Lacerations: None Repair suture: n/a Repair # of packets: 0 Blood loss (ml): 200 Information for the patient's : Partha Banks [[id number]] Information: Living?: Living Presentation/position : Cephalic Left [...] present. Hemostasis assured. Mom and baby well. Oven Roaster verified all counts correct. Dr. Waldron notified of . Electronically signed by: Dustin Benavides APRN, 11/17/2022 9:38 PM Normal [facility] PATIENT INSTRUCTIONSon 11-17 Labeling Associate Authentication Interface Message Text Thank you for choosing [facility]. It was a pleasure to see you today! Please call [phone] for all your office needs. Your opinion [...] improve your experience. We are available via [employer] messages and phone calls during regular business hours, but if there is an urgent need or you need to be seen after hours (in triage or the ER) please call our after hours number [phone]. You will be connected to the cotton jammer physician or right of way supervisor. If a hospital visit is recommended please always go to [facility] located at [address] [place] [address]. Getting your test results is easier than ever! There are several ways you could receive results If you are a [employer] user this allows you rapid access to results. Most test results are released within 24 hours and may be viewable to you even before your provider reviews the results, or Clinical staff may call you with any abnormal results to discuss further your plan of care with the provider, or you could receive a letter for normal results. Attention [employer] Users! Want to send us a non urgent message, check your test results, request a medication refill, or schedule an appointment at your convenience? It's fast, safe, and easy. Just log in to [email or web address] and enter your user name and password. If you don't have a user name or password please ask one of our very qualified staff members and they will be happy to assist you in getting signed up. These messages are checked during office hours only. Please still call the office or physician cotton jammer with any urgent medical issues. For technical support, call If you had labs ordered today you can go to any [facility] lab and walk in with no appointment needed. If any imaging was ordered for you, central scheduling should call you within the week. If you do not hear from them, you can call them at [phone]. Any outpatient referrals with be taken care of by our staff. If you do not hear from their office within 1 week, please call our office at [phone] so we can check on the status for you. We all want to Thank you for choosing [facility]! Normal Provider Locations PATIENT INSTRUCTIONSon 11-09 Labeling Associate Authentication Interface Message Text Thank you for choosing [facility] [place]. It was a pleasure to see you today! Please call [phone] for all your office needs. Your opinion [...] improve your experience. We are available via [employer] messages and phone calls during regular business hours, but if there is an urgent need or you need to be seen after hours (in triage or the ER) please call our after hours number [phone]. You will be connected to the cotton jammer physician or right of way supervisor. If a hospital visit is recommended please always go to [facility] located at [address] [facility] in [place]. Getting your test results is easier than ever! There are several ways you could receive results If you are a [employer] user this allows you rapid access to results. Most test results are released within 24 hours and may be viewable to you even before your provider reviews the results, or Clinical staff may call you with any abnormal results to discuss further your plan of care with the provider, or you could receive a letter for normal results. Attention [employer] Users! Want to send us a non urgent message, check your test results, request a medication refill, or schedule an appointment at your convenience? It's fast, safe, and easy. Just log in to [email or web address] and enter your user name and password. If you don't have a user name or password please ask one of our very qualified staff members and they will be happy to assist you in getting signed up. These messages are checked during office hours only. Please still call the office or physician cotton jammer with any urgent medical issues. For technical support, call If you had labs ordered today you can go to any [facility] lab and walk in with no appointment needed. If any imaging was ordered for you, central scheduling should call you within the week. If you do not hear from them, you can call them at [phone]. Any outpatient referrals with be taken care of by our staff. If you do not hear from their office within 1 week, please call our office at [phone] so we can check on the status for you. We all want to Thank you for choosing [facility]! Normal Provider Locations PROGRESS NOTESon 11-09-2022 Labeling Associate Authentication Interface Message Text Pt presents today for routine OB visit @ 38+1 +FM, no bleeding, no LOF Feeling well overall, ready to meet baby Hurt her back sitting for a long period of time Discussed comfort measures All set for FBBC She has no other questions or concerns S=D RTO 1 week Normal Provider Locations Labeling Associate Authentication Interface Message Text Patient Active Problem [...] NON REACTIVE Provider Locations PATIENT INSTRUCTIONSon 11-02 Labeling Associate Authentication Interface Message Text Thank you for choosing [facility] [place]. It was a pleasure to see you today! Please call [phone] for all your office needs. Your opinion [...] improve your experience. We are available via [employer] messages and phone calls during regular business hours, but if there is an urgent need or you need to be seen after hours (in triage or the ER) please call our after hours number [phone]. You will be connected to the cotton jammer physician or right of way supervisor. If a hospital visit is recommended please always go to [facility] located at [address] [place] [address]. Getting your test results is easier than ever! There are several ways you could receive results If you are a [employer] user this allows you rapid access to results. Most test results are released within 24 hours and may be viewable to you even before your provider reviews the results, or Clinical staff may call you with any abnormal results to discuss further your plan of care with the provider, or you could receive a letter for normal results. Attention [employer] Users! Want to send us a non urgent message, check your test results, request a medication refill, or schedule an appointment at your convenience? It's fast, safe, and easy. Just log in to [email or web address] and enter your user name and password. If you don't have a user name or password please ask one of our very qualified staff members and they will be happy to assist you in getting signed up. These messages are checked during office hours only. Please still call the office or physician cotton jammer with any urgent medical issues. For technical support, call If you had labs ordered today you can go to any [facility] lab and walk in with no appointment needed. If any imaging was ordered for you, central scheduling should call you within the week. If you do not hear from them, you can call them at [phone]. Any outpatient referrals with be taken care of by our staff. If you do not hear from their office within 1 week, please call our office at [phone] so we can check on the status for you. We all want to Thank you for choosing [facility]! Normal Provider Locations PROGRESS NOTESon 11-02-2022 Labeling Associate Authentication Interface Message Text Patient Active Problem [...] uc/std/pl WNL Pertussis allergy Normal Provider Locations Labeling Associate Authentication Interface Message Text Pt presents today [...] ISOLATED Normal Provider Locations PATIENT INSTRUCTIONSon 10-26 Labeling Associate Authentication Interface Message Text Thank you for choosing [facility] [place]. It was a pleasure to see you today! Please call [phone] for all your office needs. Your opinion [...] improve your experience. We are available via [employer] messages and phone calls during regular business hours, but if there is an urgent need or you need to be seen after hours (in triage or the ER) please call our after hours number [phone]. You will be connected to the cotton jammer physician or right of way supervisor. If a hospital visit is recommended please always go to [facility] [place] [facility] [place] Getting your test results is easier than ever! There are several ways you could receive results If you are a [employer] user this allows you rapid access to results. Most test results are released within 24 hours and may be viewable to you even before your provider reviews the results, or Clinical staff may call you with any abnormal results to discuss further your plan of care with the provider, or you could receive a letter for normal results. Attention [employer] Users! Want to send us a non urgent message, check your test results, request a medication refill, or schedule an appointment at your convenience? It's fast, safe, and easy. Just log in to [email or web address] and enter your user name and password. If you don't have a user name or password please ask one of our very qualified staff members and they will be happy to assist you in getting signed up. These messages are checked during office hours only. Please still call the office or physician cotton jammer with any urgent medical issues. For technical support, call If you had labs ordered today you can go to any [facility] lab and walk in with no appointment needed. If any imaging was ordered for you, central scheduling should call you within the week. If you do not hear from them, you can call them at [phone]. Any outpatient referrals with be taken care of by our staff. If you do not hear from their office within 1 week, please call our office at [phone] so we can check on the status for you. We all want to Thank you for choosing [facility]! Normal Provider Locations PROGRESS NOTESon 10-26-2022 Labeling Associate Authentication Interface Message Text Patient Active Problem [...] uc/std/pl WNL Pertussis allergy Normal Provider Locations Labeling Associate Authentication Interface Message Text Pt presents today for routine OB visit @ 36+1 +FM, no bleeding, no LOF Feeling well overall, ready to meet baby soon! GBS self collected All set for FBBC She has no other questions or concerns S=D RTO 1 week Normal Provider Locations PATIENT INSTRUCTIONSon 10-12 Labeling Associate Authentication Interface Message Text Thank you for choosing [facility] [place]. It was a pleasure to see you today! Please call [phone] for all your office needs. Your opinion [...] improve your experience. We are available via [employer] messages and phone calls during regular business hours, but if there is an urgent need or you need to be seen after hours (in triage or the ER) please call our after hours number [phone]. You will be connected to the cotton jammer physician or right of way supervisor. If a hospital visit is recommended please always go to [facility] located at [address] [place] [address]. Getting your test results is easier than ever! There are several ways you could receive results If you are a [employer] user this allows you rapid access to results. Most test results are released within 24 hours and may be viewable to you even before your provider reviews the results, or Clinical staff may call you with any abnormal results to discuss further your plan of care with the provider, or you could receive a letter for normal results. Attention [employer] Users! Want to send us a non urgent message, check your test results, request a medication refill, or schedule an appointment at your convenience? It's fast, safe, and easy. Just log in to [email or web address] and enter your user name and password. If you don't have a user name or password please ask one of our very qualified staff members and they will be happy to assist you in getting signed up. These messages are checked during office hours only. Please still call the office or physician cotton jammer with any urgent medical issues. For technical support, call If you had labs ordered today you can go to any [facility] lab and walk in with no appointment needed. If any imaging was ordered for you, central scheduling should call you within the week. If you do not hear from them, you can call them at [phone]. Any outpatient referrals with be taken care of by our staff. If you do not hear from their office within 1 week, please call our office at [phone] so we can check on the status for you. We all want to Thank you for choosing [facility]! Normal Provider Locations PROGRESS NOTESon 10-12-2022 Labeling Associate Authentication Interface Message Text Routine OB visit @ 34+1 Good FM Denies VB, LOF, or ctx Has 36 week appointment with FBBC scheduled FBBC paperwork signed today, patient remains low risk candidate RPR/CBC ordered S=D RTO 2 weeks Normal Provider Locations Labeling Associate Authentication Interface Message Text Patient Active Problem [...] allergy. Normal Provider Locations PATIENT INSTRUCTIONSon 09-28 Labeling Associate Authentication Interface Message Text Thank you for choosing [facility] [place]. It was a pleasure to see you today! Please call [phone] for all your office needs. Your opinion [...] improve your experience. We are available via [employer] messages and phone calls during regular business hours, but if there is an urgent need or you need to be seen after hours (in triage or the ER) please call our after hours number [phone]. You will be connected to the cotton jammer physician or right of way supervisor. If a hospital visit is recommended please always go to [facility] located at [address] [place] [address] in [place]. Getting your test results is easier than ever! There are several ways you could receive results If you are a [employer] user this allows you rapid access to results. Most test results are released within 24 hours and may be viewable to you even before your provider reviews the results, or Clinical staff may call you with any abnormal results to discuss further your plan of care with the provider, or you could receive a letter for normal results. Attention [employer] Users! Want to send us a non urgent message, check your test results, request a medication refill, or schedule an appointment at your convenience? It's fast, safe, and easy. Just log in to [email or web address] and enter your user name and password. If you don't have a user name or password please ask one of our very qualified staff members and they will be happy to assist you in getting signed up. These messages are checked during office hours only. Please still call the office or physician cotton jammer with any urgent medical issues. For technical support, call If you had labs ordered today you can go to any [facility] lab and walk in with no appointment needed. If any imaging was ordered for you, central scheduling should call you within the week. If you do not hear from them, you can call them at [phone]. Any outpatient referrals with be taken care of by our staff. If you do not hear from their office within 1 week, please call our office at [phone] so we can check on the status for you. We all want to Thank you for choosing [facility]! Normal Provider Locations PROGRESS NOTESon 09-28-2022 Labeling Associate Authentication Interface Message Text Patient Active Problem List Diagnosis Date Noted ? Supervision of other normal , antepartum 04/27/2022 Planning FBBC Urine Glucose negative Protein negative Leukocytes positive - trace RBC negative Nitrites negative Here for ob check O+ gtt 88/hgb 13.1 +fm Normal Provider Locations Labeling Associate Authentication Interface Message Text + movement Feels good Discussed FBBC consent she needs to bring in No other concerns [id number] Normal Provider Locations PATIENT INSTRUCTIONSon 09-12 Labeling Associate Authentication Interface Message Text Thank you for choosing [facility] [place]. It was a pleasure to see you today! Please call [phone] for all your office needs. Your opinion [...] improve your experience. We are available via [employer] messages and phone calls during regular business hours, but if there is an urgent need or you need to be seen after hours (in triage or the ER) please call our after hours number [phone]. You will be connected to the cotton jammer physician or right of way supervisor. If a hospital visit is recommended please always go to [facility] located at [address] [place] [address]. Getting your test results is easier than ever! There are several ways you could receive results If you are a [employer] user this allows you rapid access to results. Most test results are released within 24 hours and may be viewable to you even before your provider reviews the results, or Clinical staff may call you with any abnormal results to discuss further your plan of care with the provider, or you could receive a letter for normal results. Attention [employer] Users! Want to send us a non urgent message, check your test results, request a medication refill, or schedule an appointment at your convenience? It's fast, safe, and easy. Just log in to [email or web address] and enter your user name and password. If you don't have a user name or password please ask one of our very qualified staff members and they will be happy to assist you in getting signed up. These messages are checked during office hours only. Please still call the office or physician cotton jammer with any urgent medical issues. For technical support, call If you had labs ordered today you can go to any [facility] lab and walk in with no appointment needed. If any imaging was ordered for you, central scheduling should call you within the week. If you do not hear from them, you can call them at [phone]. Any outpatient referrals with be taken care of by our staff. If you do not hear from their office within 1 week, please call our office at [phone] so we can check on the status for you. We all want to Thank you for choosing [facility]! Normal Provider Locations PROGRESS NOTESon 09-12-2022 Labeling Associate Authentication Interface Message Text Patient Active Problem List Diagnosis Date Noted ? Supervision of other normal , antepartum 04/27/2022 Planning FBBC Urine Glucose negative Protein negative Leukocytes negative RBC negative Nitrites negative patient presents for ob check states +FM O+ gtt 88 hgb 13.1 tdap - allergy No questions or concerns at this time. Normal Provider Locations PATIENT INSTRUCTIONSon 08-31 Labeling Associate Authentication Interface Message Text Thank you for choosing [facility] [place]. It was a pleasure to see you today! Please call [phone] for all your office needs. Your opinion [...] improve your experience. We are available via [employer] messages and phone calls during regular business hours, but if there is an urgent need or you need to be seen after hours (in triage or the ER) please call our after hours number [phone]. You will be connected to the cotton jammer physician or right of way supervisor. If a hospital visit is recommended please always go to [facility] located at [address] [place] [address]. Getting your test results is easier than ever! There are several ways you could receive results If you are a [employer] user this allows you rapid access to results. Most test results are released within 24 hours and may be viewable to you even before your provider reviews the results, or Clinical staff may call you with any abnormal results to discuss further your plan of care with the provider, or you could receive a letter for normal results. Attention [employer] Users! Want to send us a non [...] Please still call the office or physician cotton jammer with any urgent medical issues. For technical support, call If you had labs ordered today you can go to any [facility] lab and walk in with no appointment needed. If any imaging was ordered for you, central scheduling should call you within the week. If you do not hear from them, you can call them at [phone]. Any outpatient referrals with be taken care of by our staff. If you do not hear from their office within 1 week, please call our office at [phone] so we can check on the status for you. We all want to Thank you for choosing [facility]! Normal Provider Locations PROGRESS NOTESon 08-31-2022 Labeling Associate Authentication Interface Message Text Patient Active Problem List Diagnosis Date Noted ? Supervision of other normal , antepartum 04/27/2022 Planning FBBC Urine Glucose negative Protein negative Leukocytes positive - trace RBC negative Nitrites negative Here for ob check O+ gtt 88/hgb 13.1 Discuss varicose vein on labia Normal Provider Locations Labeling Associate Authentication Interface Message Text Pt presents for [...] <140 Provid er Locations PATIENT INSTRUCTIONSon 08-02 Labeling Associate Authentication Interface Message Text Thank you for choosing [facility] [place]. It was a pleasure to see you today! Please call [phone] for all your office needs. Your opinion [...] improve your experience. We are available via [employer] messages and phone calls during regular business hours, but if there is an urgent need or you need to be seen after hours (in triage or the ER) please call our after hours number [phone]. You will be connected to the cotton jammer physician or right of way supervisor. If a hospital visit is recommended please always go to [facility] Getting your test results is easier than ever! There are several ways you could receive results If you are a [employer] user this allows you rapid access to [...] safe, and easy. Just log in to [email or web address] and enter your user name and password. If you don't have a user name or password please ask one of our very qualified staff members and they will be happy to assist you in getting signed up. These messages are checked during office hours only. Please still call the office or physician cotton jammer with any urgent medical issues. For technical support, call If you had labs ordered today you can go to any [facility] lab and walk in with no appointment needed. If any imaging was ordered for you, central scheduling should call you within the week. If you do not hear from them, you can call them at [phone]. Any outpatient referrals with be taken care of by our staff. If you do not hear from their office within 1 week, please call our office at [phone] so we can check on the status for you. We all want to Thank you for choosing [facility] Normal Provider Locations PROGRESS NOTESon 08-02-2022 Labeling Associate Authentication Interface Message Text Pt presents today for routine OB visit @ 24+0 +FM, no bleeding, no LOF Feeling well overall Plans to do GTT in next few weeks Will call FBBC between 28-32 weeks She has no other questions or concerns S=D RTO 4 weeks Normal Provider Locations Labeling Associate Authentication Interface Message Text Patient Active Problem List Diagnosis Date Noted ? Supervision of other normal , antepartum 04/27/2022 Planning FBBC Urine Glucose negative Protein negative Leukocytes positive - 1+ RBC negative Nitrites negative Here for exam. Will do GTT around 26 weeks. No concerns or questions today. +FM, says baby is moving well. Normal Provider Locations PATIENT INSTRUCTIONSon 06-30 Labeling Associate Authentication Interface Message Text Thank you for choosing [facility] [place]. It was a pleasure to see you today! Please call [phone] for all your office needs. Your opinion [...] improve your experience. We are available via [employer] messages and phone calls during regular business hours, but if there is an urgent need or you need to be seen after hours (in triage or the ER) please call our after hours number [phone]. You will be connected to the cotton jammer physician or right of way supervisor. If a hospital visit is recommended please always go to [facility] located at [address] [facility] in [place]. Getting your test results is easier than ever! There are several ways you could receive results If you are a [employer] user this allows you rapid access to results. Most test results are released within 24 hours and may be viewable to you even before your provider reviews the results, or Clinical staff may call you with any abnormal results to discuss further your plan of care with the provider, or you could receive a letter for normal results. Attention [employer] Users! Want to send us a non urgent message, check your test results, request a medication refill, or schedule an appointment at your convenience? It's fast, safe, and easy. Just log in to [email or web address] and enter your user name and password. If you don't have a user name or password please ask one of our very qualified staff members and they will be happy to assist you in getting signed up. These messages are checked during office hours only. Please still call the office or physician cotton jammer with any urgent medical issues. For technical support, call If you had labs ordered today you can go to any [facility] lab and walk in with no appointment needed. If any imaging was ordered for you, central scheduling should call you within the week. If you do not hear from them, you can call them at [phone]. Any outpatient referrals with be taken care of by our staff. If you do not hear from their office within 1 week, please call our office at [phone] so we can check on the status for you. We all want to Thank you for choosing [facility] Normal Provider Locations PROGRESS NOTESon 06-30-2022 Labeling Associate Authentication Interface Message Text Patient Active Problem [...] hgb 14.1 uc/std/pl WNL Normal Provider Locations Labeling Associate Authentication Interface Message Text Yanet Banks was seen in [facility] [place]/30/2022. Normal [facility] PATIENT INSTRUCTIONSon 05-25 Labeling Associate Authentication Interface Message Text Thank you for choosing [facility]. It was a pleasure to see you today! Please call [phone] for all your office needs. Your opinion [...] improve your experience. We are available via [employer] messages and phone calls during regular business hours, but if there is an urgent need or you need to be seen after hours (in triage or the ER) please call our after hours number [phone]. You will be connected to the cotton jammer physician or right of way supervisor. If a hospital visit is recommended please always go to main [facility] located at [address] [place] [address]. Getting your test results is easier than ever! There are several ways you could receive results If you are a [employer] user this allows you rapid access to results. Most test results are released within 24 hours and may be viewable to you even before your provider reviews the results, or Clinical staff may call you with any abnormal results to discuss further your plan of care with the provider, or you could receive a letter for normal results. Attention [employer] Users! Want to send us a non urgent message, check your test results, request a medication refill, or schedule an appointment at your convenience? It's fast, safe, and easy. Just log in to [email or web address] and enter your user name and password. If you don't have a user name or password please ask one of our very qualified staff members and they will be happy to assist you in getting signed up. These messages are checked during office hours only. Please still call the office or physician cotton jammer with any urgent medical issues. For technical support, call If you had labs ordered today you can go to any [facility] lab and walk in with no appointment needed. If any imaging was ordered for you, central scheduling should call you within the week. If you do not hear from them, you can call them at [phone]. Any outpatient referrals with be taken care of by our staff. If you do not hear from their office within 1 week, please call our office at [phone] so we can check on the status for you. We all want to Thank you for choosing [facility] Normal Provider Locations PROGRESS NOTESon 05-25-2022 Labeling Associate Authentication Interface Message Text Patient Active Problem [...] concerns at this time Normal Provider Locations Labeling Associate Authentication Interface Message Text Yanet Banks [id number] 1995 Patient Active Problem List Diagnosis ? [...] 3.5-10.9 Provid er Locations ANESTH ADDENDUMon 04-27-2022 Labeling Associate Authentication Interface Message Text Addended by: ZAIDA [...] DETECTED Normal Provider Locations PROGRESS NOTESon 04-27-2022 Labeling Associate Authentication Interface Message Text There are no [...] concerns at this time Normal Provider Locations Labeling Associate Authentication Interface Message Text New OB visit [...] Anion gap [Moles/Vol] 13 mmol/L Normal 5-15 [facility] Comment on above: Performed By: #### L [id number] #### [place] [address] Calcium [Mass/Vol] 9.5 mg/dL Normal 8.5-10.5 [facility] Comment on above: Performed By: #### L [id number] #### [place] [address] Chloride [Moles/Vol] 101 mmol/L Normal 96-110 [facility] Comment on above: Performed By: #### L [id number] #### [place] [id number] CO2 [Moles/Vol] 22 mmol/L Normal 19-32 [facility] Comment on above: Performed By: #### L [id number] #### [place] [id number] Creatinine [Mass/Vol] 0.6 mg/dL Normal 0.5-1.2 [facility] Comment on above: Performed By: #### L [id number] #### [place] [id number] ESTIMATED GFR 126 mL/min/1.73m*2 Normal >=60 [facility] Comment on above: Performed By: #### L [id number] #### [place] [id number] Glucose [Mass/Vol] 112 mg/dL High 70-99 [facility] Comment on above: Performed By: #### L [id number] #### [place] [id number] Potassium [Moles/Vol] 3.7 mmol/L Normal 3.4-5.3 [facility] Comment on above: Performed By: #### L [id number] #### [place] [id number] Sodium [Moles/Vol] 136 mmol/L Normal 135-148 [facility] Comment on above: Performed By: #### L [id number] #### [place] [id number] Urea nitrogen [Mass/Vol] 10 mg/dL Normal 3-29 [facility] Comment on above: Performed By: #### L [id number] #### [place] [id number] Urea nitrogen/Creatinine [Mass ratio] 17 mg/mg Normal - [facility] Comment on above: Performed By: #### L [id number] #### [place] [address] Anion gap [Moles/Vol] 13 mmol/L 5 - 15 [facility] Calcium [Mass/Vol] 9.5 mg/dL 8.5 - 10.5 mg/dL [facility] Chloride [Moles/Vol] 101 mmol/L [facility] CO2 [Moles/Vol] 22 mmol/L [facility] Creatinine [Mass/Vol] 0.6 mg/dL 0.5 - 1.2 mg/dL [facility] GFR/1.73 sq M.predicted among blacks MDRD (S/P/Bld) [Vol rate/Area] 126 mL/min/{1.73_m2} - PINF [facility] Glucose [Mass/Vol] 112 mg/dL High 70 - 99 mg/dL [facility] Interpretation and review of laboratory results Abnormal [facility] Potassium [Moles/Vol] 3.7 mmol/L [facility] Sodium [Moles/Vol] 136 mmol/L [facility] Urea nitrogen [Mass/Vol] 10 mg/dL 3 - 29 mg/dL [facility] Urea nitrogen/Creatinine [Mass ratio] 17 mg/mg - [facility] COMPLETE BLOOD COUNT WITH DI FFERENTIALon 04-23-2022 BASOPHILS ABSOLUTE COUNT (10*3/UL) BY AUTOMATED COUNT 0.0 K/uL Normal 0.0-0.3 [facility] Comment on above: Performed By: #### L [id number] #### [place] [address] BASOPHILS RELATIVE PERCENT BY AUTOMATED COUNT 0.1 % Normal 0.0-2.0 [facility] Comment on above: Performed By: #### L [id number] #### [place] [address] Eosinophils (Bld) [#/Vol] 0.0 10*3/uL Normal 0.0-0.5 [facility] Comment on above: Performed By: #### L [id number] #### [place] [address] EOSINOPHILS RELATIVE PERCENT BY AUTOMATED COUNT 0.1 % Normal 0.0-5.0 [facility] Comment on above: Performed By: #### L [id number] #### [place] [address] Erythrocyte distribution width (RBC) [Ratio] 11.8 % Normal <=15.0 [facility] Comment on above: Performed By: #### L [id number] #### [place] [address] Hematocrit (Bld) [Volume fraction] 42.8 % Normal 34.0-49.0 [facility] Comment on above: Performed By: #### L [id number] #### [place] [id number] Hemoglobin (Bld) [Mass/Vol] 15.1 g/dL Normal 11.2-15.7 [facility] Comment on above: Performed By: #### L [id number] #### [place] [id number] Immature granulocytes (Bld) [#/Vol] 0.0 10*3/uL Normal 0.0-0.1 [facility] Comment on above: Performed By: #### L [id number] #### [place] [address] Immature granulocytes/100 WBC (Bld) 0.2 % Normal <1.0 [facility] Comment on above: Performed By: #### L [id number] #### [place] [id number] LYMPHOCYTES ABSOLUTE COUNT (10*3/UL) BY AUTOMATED COUNT 0.5 K/uL Low 0.9-4.1 [facility] Comment on above: Performed By: #### L [id number] #### [place] [id number] LYMPHOCYTES RELATIVE PERCENT BY AUTOMATED COUNT 4.5 % Low 14.0-51.0 [facility] Comment on above: Performed By: #### L [id number] #### [place] [address] MCH (RBC) [Entitic mass] 31.9 pg Normal 26.0-34.0 [facility] Comment on above: Performed By: #### L [id number] #### [place] [address] MCHC (RBC) [Mass/Vol] 35.3 g/dL Normal 30.7-35.5 [facility] Comment on above: Performed By: #### L [id number] #### [place] [address] MCV (RBC) [Entitic vol] 90.5 fL Normal 80.0-100.0 [facility] Comment on above: Performed By: #### L [id number] #### [place] [address] MEAN PLATELET VOLUME (FL) BY AUTOMATED COUNT 9.1 fL Normal 7.2-11.7 [facility] Comment on above: Performed By: #### L [id number] #### [place] [address] MONOCYTES ABSOLUTE COUNT (10*3/UL) BY AUTOMATED COUNT 0.4 K/uL Normal 0.2-1.0 [facility] Comment on above: Performed By: #### L [id number] #### [place] [address] MONOCYTES RELATIVE PERCENT BY AUTOMATED COUNT 3.6 % Low 4.0-12.0 [facility] Comment on above: Performed By: #### L [id number] #### [place] [address] NEUTROPHILS ABSOLUTE COUNT (10*3/UL) BY AUTOMATED COUNT 9.7 K/uL High 1.8-7.5 [facility] Comment on above: Performed By: #### L [id number] #### [place] [address] NEUTROPHILS RELATIVE PERCENT BY AUTOMATED COUNT 91.5 % High 42.0-80.0 [facility] Comment on above: Performed By: #### L [id number] #### [place] [address] PLATELETS (10*3/UL) BY AUTOMATED COUNT 291 K/uL Normal 140-400 [facility] Comment on above: Performed By: #### L [id number] #### [place] [address] RBC (Bld) [#/Vol] 4.73 10*6/uL Normal 3.95-5.26 [facility] Comment on above: Performed By: #### L [id number] #### [place] [address] WBC (Bld) [#/Vol] 10.6 10*3/uL Normal 3.5-10.9 [facility] Comment on above: Performed By: #### L [id number] #### [place] [address] Basophils (Bld) [#/Vol] 0.0 10*3/uL 0.0 - 0.3 K/uL [facility] Basophils/100 WBC (Bld) 0.1 % 0.0 - 2.0 % [facility] Eosinophils (Bld) [#/Vol] 0.0 10*3/uL 0.0 - 0.5 K/uL [facility] Eosinophils/100 WBC (Bld) 0.1 % 0.0 - 5.0 % [facility] Erythrocyte distribution width (RBC) [Ratio] 11.8 % NINF - 15.0 % [facility] Hematocrit (Bld) [Volume fraction] 42.8 % 34.0 - 49.0 % [facility] Hemoglobin (Bld) [Mass/Vol] 15.1 g/dL 11.2 - 15.7 g/dL [facility] Immature granulocytes (Bld) [#/Vol] 0.0 10*3/uL 0.0 - 0.1 K/uL [facility] Immature granulocytes/100 WBC (Bld) 0.2 % NINF - 1.0 % [facility] Interpretation and review of laboratory results Abnormal [facility] Lymphocytes (Bld) [#/Vol] 0.5 10*3/uL [...] [facility] RBC (Bld) [#/Vol] 4.73 10*6/uL [facility] WBC corrected for nucl RBC Auto (Bld) [#/Vol] 10.6 K/uL 3.5 - 10.9 K/uL [facility] HEPATIC FUNCTION PANELon Albumin [Mass/Vol] 4.4 g/dL Normal 3.5-5.2 [facility] Comment on above: Performed By: #### L [id number] ####[place] [phone] ALP [Catalytic activity/Vol] 55 U/L Normal 23-144 [facility] Comment on above: Performed By: #### L [id number] ####[place] [phone] ALT [Catalytic activity/Vol] 12 U/L Normal 0-60 [facility] Comment on above: Performed By: #### L [id number] ####[place] [phone] AST [Catalytic activity/Vol] 17 U/L Normal 0-46 [facility] Comment on above: Performed By: #### L [id number] ####[place] [phone] Bilirubin [Mass/Vol] 0.6 mg/dL Normal 0.0-1.2 [facility] Comment on above: Performed By: #### L [id number] ####[place] [phone] BILIRUBIN, DIRECT < Normal 0.0-0.4 [facility] Comment on above: Performed By: #### L [id number] ####[place] [phone] BILIRUBIN, INDIRECT Normal [facility] Comment on above: Result Comment: Unab le to calculate. Performed By: #### L [id number] ####[place] [phone] Protein [Mass/Vol] 7.3 g/dL Normal 6.0-8.3 [facility] Comment on above: Performed By: #### L [id number] ####[place] [phone] Albumin [Mass/Vol] 4.4 g/dL 3.5 - 5.2 g/dL [facility] ALP [Catalytic activity/Vol] 55 U/L 23 - 144 U/L [facility] ALT [Catalytic activity/Vol] 12 U/L 0 - 60 U/L [facility] AST [Catalytic activity/Vol] 17 U/L 0 - 46 U/L [facility] Bilirubin [Mass/Vol] 0.6 mg/dL 0.0 - 1.2 mg/dL [facility] Bilirubin.direct [Mass/Vol] mg/dL 0.0 - 0.4 mg/dL [facility] Bilirubin.indirect [Mass/Vol] [facility] Comment on above: Unable to calculate. Protein [Mass/Vol] 7.3 g/dL 6.0 - 8.3 g/dL [facility] LIPASEon 04-23-2022 Lipase [Catalytic activity/Vol] 27 U/L Normal 0-60 [facility] Comment on above: Performed By: #### L [id number] ####[place] [phone] Interpretation and review of laboratory results [facility] [Catal[facility] activity/Vol] 27 U/L 0 - 60 U/L [facility] No Panel Informationon 04-23 [facility] Vital Signs Date Time Vital Sign Value Performing Clinician Faci lity 03-14-2025 10:07-0400 Body mass index (BMI) [Ratio] 29.29 kg/m2 Khadra Mancini APRN.CNM Work Phone: [facility] 03-14-2025 10:07-0400 Body weight 70.31 kg Khadra Mancini APRN.CNM Work Phone: [facility] 03-14-2025 10:07-0400 Diastolic blood pressure 82 mm[Hg] Khadra Mancini APRN.CNM Work Phone: [facility] 03-14-2025 10:07-0400 Systolic blood pressure 114 mm[Hg] Khadra Mancini APRN.CNM Work Phone: [facility] 03-13-2025 01:59-0400 Body height 157.48 cm No Primary Care Physician [facility] 03-13-2025 01:59-0400 Body mass index (BMI) [Ratio] 28.7 kg/m2 No Primary Care Physician [facility] 03-13-2025 01:59-0400 Body weight 71.21 kg No Primary Care Physician [facility] 03-13-2025 01:55-0400 Diastolic blood pressure 77 mm[Hg] No Primary Care Physician [facility] 03-13-2025 01:55-0400 Heart rate 83 /min No Primary Care Physician [facility] 03-13-2025 01:55-0400 Systolic blood pressure 108 mm[Hg] No Primary Care Physician [facility] 03-13-2025 01:54-0400 SaO2% (BldA) [Mass fraction] 97 % No Primary Care Physician [facility] 03-13-2025 01:49-0400 Body temperature 97.9 [degF] No Primary Care Physician [facility] 03-13-2025 01:49-0400 Respiratory rate 16 /min No Primary Care Physician [facility] 03-11-2025 10:33-0400 Body mass index (BMI) [Ratio] 29.48 kg/m2 Khadra Mancini APRN.CNM Work Phone: [facility] 03-11-2025 10:33-0400 Body weight 70.76 kg Khadra Mancini APRN.CNM Work Phone: [facility] 03-11-2025 10:33-0400 Diastolic blood pressure 62 mm[Hg] Khadra Mancini APRN.CNM Work Phone: [facility] 03-11-2025 10:33-0400 Systolic blood pressure 110 mm[Hg] Khadra Mancini APRN.CNM Work Phone: [facility] 03-07-2025 13:14-0400 Body mass index (BMI) [Ratio] 29.78 kg/m2 Annie Thakur APRN.CNM Work Phone: [facility] 03-07-2025 13:14-0400 Body weight 71.49 kg Annie Thakur APRN.CNM Work Phone: [facility] 03-07-2025 13:14-0400 Diastolic blood pressure 64 mm[Hg] Annie Thakur APRN.CNM Work Phone: [facility] 03-07-2025 13:14-0400 Systolic blood pressure 118 mm[Hg] Annie Thakur SECRETARY TO THE VICE PRESIDENT.CNM Work Phone: [facility] 03-05-2025 09:02-0400 Body mass index (BMI) [Ratio] 29.4 kg/m2 Annie Michaelts SECRETARY TO THE VICE PRESIDENT.CNM Work Phone: [facility] 03-05-2025 09:02-0400 Body weight 70.58 kg Annie Thakur SECRETARY TO THE VICE PRESIDENT.CNM Work Phone: [facility] 03-05-2025 09:02-0400 Diastolic blood pressure 64 mm[Hg] Annie Thakur SECRETARY TO THE VICE PRESIDENT.CNM Work Phone: [facility] 03-05-2025 09:02-0400 Systolic blood pressure 110 mm[Hg] Annie Thakur SECRETARY TO THE VICE PRESIDENT.CNM Work Phone: [facility] 02-25-2025 08:05-0400 Body mass index (BMI) [Ratio] 28.91 kg/m2 Khadra Mancini SECRETARY TO THE VICE PRESIDENT.CNM Work Phone: [facility] 02-25-2025 08:05-0400 Body weight 69.4 kg Khadra Mancini SECRETARY TO THE VICE PRESIDENT.CNM Work Phone: [facility] 02-25-2025 08:05-0400 Diastolic blood pressure 68 mm[Hg] Khadra Mancini SECRETARY TO THE VICE PRESIDENT.CNM Work Phone: [facility] 02-25-2025 08:05-0400 Systolic blood pressure 108 mm[Hg] Khadra Mancini SECRETARY TO THE VICE PRESIDENT.CNM Work Phone: [facility] 02-11-2025 08:47-0400 Body mass index (BMI) [Ratio] 28.15 kg/m2 Chinyere Lehman MD Work Phone: [facility] 02-11-2025 08:47-0400 Body weight 67.59 kg Chinyere Lehman MD Work Phone: [facility] 02-11-2025 08:47-0400 Diastolic blood pressure 62 mm[Hg] Chinyere Lehman MD Work Phone: [facility] 02-11-2025 08:47-0400 Systolic blood pressure 98 mm[Hg] Chinyere Lehman MD Work Phone: [facility] 01-28-2025 08:38-0400 Body mass index (BMI) [Ratio] 27.59 kg/m2 Arthur Conlkin MD Work Phone: [facility] 01-28-2025 08:38-0400 Body weight 66.22 kg Arthur Conklin MD Work Phone: [facility] 01-28-2025 08:38-0400 Diastolic blood pressure 60 mm[Hg] Arthur Conklin MD Work Phone: [facility] 01-28-2025 08:38-0400 Systolic blood pressure 98 mm[Hg] Arthur Conklin MD Work Phone: [facility] 01-14-2025 08:04-0400 Body mass index (BMI) [Ratio] 27.21 kg/m2 Khadra Mancini APRN.CNM Work Phone: [facility] 01-14-2025 08:04-0400 Body weight 65.32 kg Khadra Live TURNERN.CNM Work Phone: [facility] 01-14-2025 08:04-0400 Diastolic blood pressure 70 mm[Hg] Khadra Live TURNERN.CNM Work Phone: [facility] 01-14-2025 08:04-0400 Systolic blood pressure 116 mm[Hg] Khadra Live TURNERN.CNM Work Phone: [facility] 12-31-2024 08:07-0400 Body mass index (BMI) [Ratio] 26.83 kg/m2 Khadramignon Mancini APRN.CNM Work Phone: [facility] 12-31-2024 08:07-0400 Body weight 64.41 kg Khadra Live MORE.CNM Work Phone: [facility] 12-31-2024 08:07-0400 Diastolic blood pressure 62 mm[Hg] Khadra Mancini SECRETARY TO THE VICE PRESIDENT.CNM Work Phone: [facility] 12-31-2024 08:07-0400 Systolic blood pressure 98 mm[Hg] Khadra Mancini SECRETARY TO THE VICE PRESIDENT.CNM Work Phone: [facility] 12-17-2024 09:57-0400 Body mass index (BMI) [Ratio] 26.64 kg/m2 Khadra Mancini SECRETARY TO THE VICE PRESIDENT.CNM Work Phone: [facility] 12-17-2024 09:57-0400 Body weight 63.96 kg Khadra Mancini SECRETARY TO THE VICE PRESIDENT.CNM Work Phone: [facility] 12-17-2024 09:57-0400 Diastolic blood pressure 62 mm[Hg] Khadra Mancini SECRETARY TO THE VICE PRESIDENT.CNM Work Phone: [facility] 12-17-2024 09:57-0400 Systolic blood pressure 100 mm[Hg] Khadra Mancini SECRETARY TO THE VICE PRESIDENT.CNM Work Phone: [facility] 11-19-2024 11:23-0400 Body mass index (BMI) [Ratio] 26.07 kg/m2 Khadra Mancini SECRETARY TO THE VICE PRESIDENT.CNM Work Phone: [facility] 11-19-2024 11:23-0400 Body weight 62.6 kg Khadra Mancini SECRETARY TO THE VICE PRESIDENT.CNM Work Phone: [facility] 11-19-2024 11:23-0400 Diastolic blood pressure 62 mm[Hg] Khadra Mancini SECRETARY TO THE VICE PRESIDENT.CNM Work Phone: [facility] 11-19-2024 11:23-0400 Systolic blood pressure 104 mm[Hg] Khadra Mancini SECRETARY TO THE VICE PRESIDENT.CNM Work Phone: [facility] 10-23-2024 09:41-0400 Body mass index (BMI) [Ratio] 25.32 kg/m2 Annie Thakur SECRETARY TO THE VICE PRESIDENT.CNM Work Phone: [facility] 10-23-2024 09:41-0400 Body weight 60.78 kg Annie Plotchapincito SECRETARY TO THE VICE PRESIDENT.CNM Work Phone: [facility] 10-23-2024 09:41-0400 Diastolic blood pressure 64 mm[Hg] Annie Plotts SECRETARY TO THE VICE PRESIDENT.CNM Work Phone: [facility] 10-23-2024 09:41-0400 Systolic blood pressure 112 mm[Hg] Annie Plotts SECRETARY TO THE VICE PRESIDENT.CNM Work Phone: [facility] 09-24-2024 09:35-0400 Body mass index (BMI) [Ratio] 24.75 kg/m2 Khadra Mancini SECRETARY TO THE VICE PRESIDENT.CNM Work Phone: [facility] 09-24-2024 09:35-0400 Body weight 59.42 kg Khadra Mancini SECRETARY TO THE VICE PRESIDENT.CNM Work Phone: [facility] 09-24-2024 09:35-0400 Diastolic blood pressure 66 mm[Hg] Khadra Mancini SECRETARY TO THE VICE PRESIDENT.CNM Work Phone: [facility] 09-24-2024 09:35-0400 Systolic blood pressure 108 mm[Hg] Khadra Mancini SECRETARY TO THE VICE PRESIDENT.CNM Work Phone: [facility] 08-28-2024 09:42-0500 Body mass index (BMI) [Ratio] 24.19 kg/m2 Annie Plotts SECRETARY TO THE VICE PRESIDENT.CNM Work Phone: [facility] 08-28-2024 09:42-0500 Body weight 58.06 kg Annie Plotts SECRETARY TO THE VICE PRESIDENT.CNM Work Phone: [facility] 08-28-2024 09:42-0500 Diastolic blood pressure 68 mm[Hg] Annie Plotts SECRETARY TO THE VICE PRESIDENT.CNM Work Phone: [facility] 08-28-2024 09:42-0500 Systolic blood pressure 110 mm[Hg] Annie Plotts SECRETARY TO THE VICE PRESIDENT.CNM Work Phone: [facility] 07-31-2024 08:40-0500 Body mass index (BMI) [Ratio] 23.51 kg/m2 Annie Thakur SECRETARY TO THE VICE PRESIDENT.CNM Work Phone: [facility] 07-31-2024 08:40-0500 Body weight 56.43 kg Annie Thakur SECRETARY TO THE VICE PRESIDENT.CNM Work Phone: [facility] 07-31-2024 08:40-0500 Diastolic blood pressure 60 mm[Hg] Annie Thakur SECRETARY TO THE VICE PRESIDENT.CNM Work Phone: [facility] 07-31-2024 08:40-0500 Systolic blood pressure 122 mm[Hg] Annie Thakur SECRETARY TO THE VICE PRESIDENT.CNM Work Phone: [facility] 04-23-2022 14:16-0400 Body height 157.5 cm Joslyn Panda MD Work Phone: [facility] 04-23-2022 14:16-0400 Body mass index (BMI) [Ratio] 21.22 kg/m2 Joslyn Panda MD Work Phone: [facility] 04-23-2022 14:16-0400 Body temperature 98.6 [degF] Joslyn Panda MD Work Phone: [facility] 04-23-2022 14:16-0400 Body weight 52.62 kg Joslyn Panda MD Work Phone: [facility] 04-23-2022 14:16-0400 Diastolic blood pressure 82 mm[Hg] Joslyn Panda MD Work Phone: [facility] 04-23-2022 14:16-0400 Heart rate 117 /min Joslyn Panda MD Work Phone: [facility] 04-23-2022 14:16-0400 Respiratory rate 18 /min Joslyn Panda MD Work Phone: [facility] 04-23-2022 14:16-0400 SaO2% (BldA) [Mass fraction] 97 % Joslyn Panda MD Work Phone: [facility] 04-23-2022 14:16-0400 Systolic blood pressure 129 mm[Hg] Joslyn Panda MD Work Phone: [facility] Encounters Encounter Date Encounter Type Care Provider Facility Start: 03-14-2025 End: 03-14-2025 Patient encounter procedure Wh[employer] 1 Support Director [facility] Comment on [...] encounter procedure [facility]amorado [facility] Work Phone: Start: 03-12-2025 End: 03-12-2025 Telephone encounter Chinyere Lehman MD Work Phone: OB/Gynecology Comment on above: OB Contractions Start: 03-11-2025 End: 03-11-2025 Patient encounter procedure Khadra Live SECRETARY TO THE VICE PRESIDENT.CNM Work Phone: OB/Gynecology Comment on above: Encounter for superv ision of other normal in third trimester (HCC) (Primary Dx); 40 weeks gestation of (HCC); Mult[employer] Start: 03-11-2025 End: 03-11-2025 ambulatory KHADRA MANCINI Facility:[facility] Start: 03-07-2025 End: 03-07-2025 Telephone encounter Annie Thakur SECRETARY TO THE VICE PRESIDENT.CNM Work Phone: OB/Gynecology Start: 03-07-2025 End: 03-07-2025 Patient encounter procedure Annie Thakur SECRETARY TO THE VICE PRESIDENT.CNM Work Phone: OB/Gynecology Comment on above: 39 weeks gestation o f (HCC) (Primary Dx); Encounter for supervision of other normal in third trimester (HCC) Start: 03-07-2025 End: 03-07-2025 ambulatory ANNIE THAKUR Facility:[facility] Start: 03-05-2025 End: 03-05-2025 Patient encounter procedure Annie Thakur SECRETARY TO THE VICE PRESIDENT.HUM Work Phone: OB/Gynecology Comment on above: 39 weeks gestation o f (HCC) (Primary Dx); Encounter for supervision of other normal in third trimester (HCC) Start: 03-05-2025 End: 03-05-2025 ambulatory ANNIE SHAISTA Facility:[facility] Start: 02-25-2025 End: 02-25-2025 Patient encounter procedure Khadra Mancini APRN.CNM Work Phone: OB/Gynecology Comment on above: Encounter for superv ision of other normal in third trimester (HCC) (Primary Dx); 38 weeks gestation of (HCC) Population [facility] v[facility] Outreach (Ob/peds) Start: 02-25-2025 End: 02-25-2025 ambulatory Niru Casarez MA [facility] Start: 02-18-2025 End: 02-18-2025 ambulatory KHADRA MANCINI Facility:[facility] Start: 02-11-2025 End: 02-11-2025 Patient encounter procedure Chinyere Lehman MD Work Phone: OB/Gynecology Comment on above: Encounter for superv ision of other normal in third trimester (HCC) (Primary Dx); 36 weeks gestation of (HCC) Start: 02-11-2025 End: 02-11-2025 ambulatory CHINYERE LEHMAN Facility:[facility] Start: 01-28-2025 End: 01-29-2025 Telephone encounter Arthur Conklin MD Work Phone: OB/Gynecology Comment on above: Question (OB Questio n) Start: 01-28-2025 End: 01-28-2025 ambulatory ARTHUR CONKLIN Facility:[facility] Start: 01-28-2025 End: 01-28-2025 Patient encounter procedure Arthur Conklin MD Work Phone: OB/Gynecology Comment on above: Encounter for superv ision of other normal in third trimester (HCC) (Primary Dx); 34 weeks gestation of (HCC) Start: 01-14-2025 End: 01-14-2025 ambulatory KHADRA MANCINI Facility:[facility] Start: 01-14-2025 End: 01-14-2025 Patient encounter procedure Khadra Mancini APRN.CNM Work Phone: OB/Gynecology Comment on above: Encounter for superv ision of other normal in third trimester (HCC) (Primary Dx); 32 weeks gestation of (HCC) Start: 01-01-2025 End: 01-01-2025 Telephone encounter Nica Uriarte RN Maternal Medicine Comment on above: Lime Slaker - O ther (PRAF) Start: 12-31-2024 End: 12-31-2024 ambulatory [facility] Facility:[facility] Start: 12-31-2024 End: 12-31-2024 Patient [...] of (HCC) Start: 12-17-2024 End: 12-17-2024 ambulatory [facility] Facility:[facility] Start: 11-19-2024 End: 11-19-2024 Patient encounter procedure Khadra Mancini APRN.MARCELA Work Phone: OB/Gynecology Comment on above: Encounter for superv ision of other normal in second trimester (HCC) (Primary Dx); 24 weeks gestation of (HCC); Screening for diabetes mellitus Start: 11-19-2024 End: 11-19-2024 ambulatory [facility] Facility:[facility] Start: 10-24-2024 End: 10-24-2024 Telephone encounter Nica Uriarte RN Maternal Medicine Comment on above: Lime Slaker - O ther (PRAF) Start: 10-23-2024 End: 10-23-2024 [facility] Start: 10-23-2024 End: 10-23-2024 Patient encounter procedure Annie Thakur SECRETARY TO THE VICE PRESIDENT.CNCandice Work Phone: OB/Gynecology Comment on above: 20 weeks gestation o f (HCC) (Primary Dx); Encounter for supervision of other normal in second trimester (HCC); Encounter for supervision of normal in multigravida ([facility]) Start: 10-23-2024 End: 10-23-2024 ambulatory [facility] Facility:[facility] Start: 10-23-2024 End: 10-23-2024 Patient encounter procedure Whi Tech 1 Support Director Mfm Wstr Mob Maternal Medicine Comment on above: Encounter for anatomic survey (HCC) (Primary Dx); 20 weeks gestation of ([facility]) Start: 09-24-2024 End: 09-24-2024 ambulatory KHADRA LIVE Facility:[facility] Start: 09-24-2024 End: 09-24-2024 Patient encounter procedure Khadra Live SECRETARY TO THE VICE PRESIDENT.CNCandice Work Phone: OB/Gynecology Comment on above: Encounter for superv ision of other normal in second trimester (Primary Dx); 16 weeks gestation of Start: 08-29-2024 End: 10-29-2024 Follow-up encounter Annie Thakur APRN.MARCELA Work Phone: OB/Gynecology Start: 08-28-2024 End: 08-28-2024 ambulatory [facility] Start: 08-28-2024 End: 08-28-2024 Patient encounter procedure Annie Thakur SECRETARY TO THE VICE PRESIDENT.CNM Work Phone: OB/Gynecology Comment on above: 12 weeks gestation o f (Primary Dx); Encounter for supervision of other normal in second trimester; Multiparity Encounter for antena tony screening for malformation using ultrasound (Primary Dx); 12 weeks gestation of ; Encounter for (NT) nuchal translucency scan Start: 08-01-2024 End: 08-01-2024 Telephone encounter Nurse Support Director Ej Lee Work Phone: Obstetrics/Gynecology Comment on above: PRAF Start: 07-31-2024 End: 07-31-2024 ambulatory ANNIE THAKUR Facility:[facility] Start: 07-31-2024 End: 07-31-2024 Patient encounter procedure Annie Thakur SECRETARY TO THE VICE PRESIDENT.CNM Work Phone: OB/Gynecology Comment on above: Encounter for superv ision of normal in multigravida (Primary Dx); 8 weeks gestation of ; Multiparity Start: 07-27-2024 End: 07-29-2024 Refill Ling Castañedah Luke 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, A Service of [facility] Comment on above: Encounter for initia l prescription of vaginal ring hormonal contraceptive Start: 10-25-2023 End: 10-25-2023 ambulatory Ling Daly [facility] Start: 07-27-2023 End: 07-27-[address] [facility] Start: 01-16-2023 End: 01-16-[address] [facility] Start: 01-16-2023 Encounter for genera l adult medical examination without abnormal findings LING DALY [facility] Start: 11-17-2022 End: 11-19-2022 Evaluation and management of [facility] Start: 11-09-2022 End: 11-09-2022 ambulatory MARYANN [...] Provider Locations Start: 06-30-2022 ambulatory ALBERTA NOEL [facility] Start: 05-25-2022 ambulatory MARYANN MATHIAS [facility] er Locations Start: 04-23-2022 End: 04-23-2022 Emergency department patient visit JOSLYN PANDA [facility] Start: 04-23-2022 End: 04-23-2022 Emergency department patient visit Joslyn Panda MD Work Phone: [facility] Start: 04-12-2022 End: 04-12-2022 ambulatory MARYANN MATHIAS Provider Locations Procedures Date Procedure Procedure Detail Performing Clinician Start: 03-14-2025 Us preg uterus after 1st trimest 07/17 gestation Khadra Mancini SECRETARY TO THE VICE PRESIDENT.CNM Work Phone: Start: 03-14-2025 Urnls dip stick/tabl et rgnt non-auto w/o micrscp Khadra Live SECRETARY TO THE VICE PRESIDENT.CNM Work Phone: Start: 03-11-2025 Urnls dip stick/tabl et rgnt non-auto w/o micrscp Khadra Live SECRETARY TO THE VICE PRESIDENT.CNM Work Phone: Start: 03-07-2025 Urnls dip stick/tabl et rgnt non-auto w/o micrscp Annie Plotts SECRETARY TO THE VICE PRESIDENT.CNM Work Phone: Start: 03-05-2025 Urnls dip stick/tabl et rgnt non-auto w/o micrscp Annie Plotts SECRETARY TO THE VICE PRESIDENT.CNM Work Phone: Start: 02-25-2025 Urnls dip stick/tabl et rgnt non-auto w/o micrscp Khadra Mancini SECRETARY TO THE VICE PRESIDENT.CNM Work Phone: Start: 02-11-2025 Urnls dip stick/tabl et rgnt non-auto w/o micrscp Chinyere Lehman MD Work Phone: Start: 10-23-2024 Us preg uterus after 1st trimest 1/ gestation Annie Thakur SECRETARY TO THE VICE PRESIDENT.CNM Work Phone: Start: 08-28-2024 Us preg uterus after 1st trimest 1/ gestation Annie Thakur SECRETARY TO THE VICE PRESIDENT.CNM Work Phone: Start: 07-31-2024 Antibody screen KYRA THAKUR Comment on above: Order Comment: Speci men Type: BLOOD SPECIMEN Ordering Facility: [facility] Address: [address] [place] [address] Performed By: #### T SPN #### [facility] CLIA [id number] [address] [place] [address] [place] Start: 07-31-2024 Us uterus l imited 1/> fetuses Annie Thakur SECRETARY TO THE VICE PRESIDENT.CNM Work Phone: Start: 05-24-2022 Antibody screen SAMANTHA CA X Start: 04-23-2022 Basic metabolic 2000 panel [...] ant neoplasm of cervix Cervical Cancer Screening [facility] Start: 07-31-2027 Screening for malign ant neoplasm of cervix Cervical Cancer Screening [facility] Start: 03-18-2025 End: 03-18-2025 Patient encounter procedure OB/Gynecology Comment on above: NST NST only Start: 03-17-2025 Influenza vaccination C [facility] Start: 03-14-2025 End: 03-14-2025 Patient encounter procedure Maternal Medicine Comment on above: Growth Sweep Start: 03-13-2025 Nonstress test [facility] Start: 03-13-2025 Obstetric monitoring [facility] Start: 03-13-2025 Vital signs measurements [facility] Start: 03-13-2025 [facility] Start: 03-13-2025 Patient discharge [facility] Start: 03-11-2025 End: 03-11-2025 Patient encounter procedure 03/11/2025 10:30 AM EDT Routine Office Visit OB/Gynecology [address] [place] [address] Khadra Mancini APRN.CN [address] [place] [address] OB OB/Gynecology Comment on above: OB Start: 03-07-2025 End: 03-07-2025 Patient encounter procedure 03/07/2025 1:15 PM EDT Routine Office Visit OB/Gynecology [address] [place] [address] Annie Thakur APRN.CN [address] [place] [address] membrane sweep/OK per CP OB/Gynecology Comment on above: membrane sweep/OK pe r CP Start: 03-05-2025 End: 03-05-2025 Patient encounter procedure 03/05/2025 9:00 AM EDT Routine Office Visit OB/Gynecology [address] [place] [address] Annie Thakur APRN.CNCandice [address] [place] [address] OB OB/Gynecology Comment on above: OB Start: 02-25-2025 End: 02-25-2025 Patient encounter procedure 02/25/2025 8:00 AM EDT Routine Office Visit OB/Gynecology [address] [place] [address] Khadra Mancini APRN.CNCandice [address] [place] [address] OB OB/Gynecology Comment on above: OB Start: 02-18-2025 End: 02-18-2025 Patient encounter procedure 02/18/2025 10:30 AM EDT Routine Office Visit OB/Gynecology [address] [place] [address] Khadra Mancini APRN.CNM [address] [place] [address] OB OB/Gynecology Comment on above: OB Start: 02-11-2025 End: 02-11-2025 Patient encounter procedure 02/11/2025 8:40 AM EDT Routine Office Visit OB/Gynecology [address] [place] [address] Chinyere Friend MD [address] [place] [address] OB OB/Gynecology Comment on above: OB Start: 01-28-2025 End: 01-28-2025 Patient encounter procedure 01/28/2025 8:30 AM EDT Routine Office Visit OB/Gynecology [address] [place] [address] Arthur Conklin MD [address] [place] [address] OB OB/Gynecology Comment on above: OB Start: 01-14-2025 End: 01-14-2025 Patient encounter procedure 01/14/2025 8:00 AM EDT Routine Office Visit OB/Gynecology [address] [address] Khadra Mancini APRN.CNM [address] [place] [address] OB OB/Gynecology Comment on above: OB Start: 12-31-2024 End: 12-31-2024 Patient encounter procedure 12/31/2024 8:00 AM EDT Routine Office Visit OB/Gynecology [address] [place] [address] Khadra Mancini APRN.CNM [address] [place] [address] OB OB/Gynecology Comment on above: OB Start: 12-17-2024 End: 12-17-2024 Patient encounter procedure 12/17/2024 10:00 AM EDT Routine Office Visit OB/Gynecology [address] [place] [address] Khadra Mancini APRN.CNM [address] [place] [address] OB OB/Gynecology Comment on above: OB Start: 12-17-2024 End: 12-17-2024 ambulatory 12/17/2024 9:45 AM EDT Results Only Kaylan Antonywn [facility] [address] [place] [address] Glucose Test [facility] Comment on above: Glucose Test Start: 11-19-2024 End: 02-18-2025 ANEMIA REFLEX PANEL ANEMIA REFLEX PANEL Lab Routine Screening for diabetes mellitus Expected: 11/19/2024, Expires: 02/18/2025 [facility] Comment on above: Expected: 11/19/2024 , [...] for diabetes mellitus Expected: 11/19/2024, Expires: 11/19/2025 [facility] Comment on above: Expected: 11/19/2024 , Expires: 11/19/2025 Start: 11-19-2024 End: 11-19-2024 Patient encounter procedure 11/19/2024 11:15 AM EDT Routine Office Visit OB/Gynecology [address] [place] [address] Khadra Mancini APRN.CNM [address] [place] [address] OB OB/Gynecology Comment on above: OB Start: 10-23-2024 End: 10-23-2024 Patient encounter procedure 10/23/2024 9:45 AM EDT Routine Office Visit OB/Gynecology [address] [place] [address] Annie Thakur APRN.CNCandice [address] [place] [address] Anatomy/OB OB/Gynecology Comment on above: Anatomy/OB Start: 10-23-2024 End: 10-23-2024 Patient encounter procedure 10/23/2024 8:30 AM EDT Routine Office Visit Maternal Medicine [address] [place] [address] Anatomy/OB Maternal Medicine Comment on above: Anatomy/OB Start: 09-24-2024 End: 09-24-2024 Patient encounter procedure 09/24/2024 9:45 AM EDT Routine Office Visit OB/Gynecology [address] [place] [address] Khadra Mancini APRN.CNM [address] [place] [address] OB Routine OB/Gynecology Comment on above: OB Routine Start: 08-28-2024 End: 08-28-2024 Patient encounter procedure Maternal Medicine Comment on above: Nuchal Start: 07-31-2024 End: 10-30-2024 ANEMIA REFLEX PANEL [facility] Work Phone: Comment on above: Expected: 07/31/2024 , Expires: 10/30/2024 Start: 07-31-2024 End: 10-30-2024 Hemoglobin A1c in Blood [facility] Comment on above: Expected: 07/31/2024 , Expires: 10/30/2024 Start: 07-31-2024 End: 10-30-2024 Hepatitis B virus surface Ag [Presence] in Serum [facility] Comment on above: Expected: 07/31/2024 , Expires: 10/30/2024 Start: 07-31-2024 End: 10-30-2024 Hepatitis C virus Ab [Presence] in Serum [facility] Comment on above: Expected: 07/31/2024 , Expires: 10/30/2024 Start: 07-31-2024 End: 10-30-2024 HIV 1+2 Ab [Presence] in Serum or Plasma by Immunoassay [facility] Comment on above: Expected: 07/31/2024 , Expires: 10/30/2024 Start: 07-31-2024 End: 07-31-2025 OBSTETRIC ULTRASOUND WHI OBSTETRIC ULTRASOUND WHI Anc Imaging Routine Encounter for supervision of normal in multigravida 8 weeks gestation of Expected: 07/31/2024, Expires: 07/31/2025 [facility] Comment on above: Expected: 07/31/2024 , Expires: 07/31/2025 Start: 07-31-2024 End: 10-30-2024 RUBELLA IGG ANTIBODY [facility] Comment on above: Expected: 07/31/2024 , Expires: 10/30/2024 Start: 07-31-2024 End: 10-30-2024 SYPHILIS TREPONEMAL W/REFLEX [facility] Comment on above: Expected: 07/31/2024 , Expires: 10/30/2024 Start: 07-31-2024 End: 10-30-2024 TYPE + SCREEN [facility] Comment on above: Expected: 07/31/2024 , Expires: 10/30/2024 Start: 05-19-2024 Screening for malign ant neoplasm of cervix Cervical Cancer Screening [facility] Start: 09-01-2024 Covid-19 Vaccine ( season) Covid-19 Vaccine ( season) [facility] Start: 03-17-2024 Influenza vaccination Influenza Vacc ine (#1) 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 Max Lau, SECRETARY TO THE VICE PRESIDENT 1 [facility] [address] [place] [address] [facility] Start: 02-14-2022 Refusal of treatment by patient INFLUENZA VACCINE [facility] Start: 2021 HPV Vaccine (1 - 3-d ose SCDM series) HPV Vaccine (1 - 3-dose SCDM series) [facility] Start: 11-26-2019 COTEST / HPV COTEST / HPV [facility] Start: 11-26-2015 CERVICAL CANCER SCREENING CERVICAL CANCER SCREENING [facility] Start: 11-26-2015 Microscopic observat ion [Identifier] in Cervix by Cyto stain PAP SMEAR [facility] Start: 11-26-2015 Screening for malign ant neoplasm of cervix Cervical Cancer Screening [facility] Start: 2013 DTaP/Tdap/Td VACCINE S (1 - Tdap) DTaP/Tdap/Td VACCINES (1 - Tdap) [facility] Start: 2013 Hepatitis B Vaccine (1 of 3 - 19+ 3-dose series) Hepatitis B Vaccine (1 of 3 - 19+ 3-dose series) [facility] Start: 2013 Third diphtheria, tetanus and acellular pertussis (DTaP) vaccination DTaP,Tdap,and Td Vaccine (1 - Tdap) [facility] Start: 2013 Urine microalbumin profile DTaP,Tdap,Td Vaccine (1 - Tdap) [facility] Start: 2012 Anxiety Screening Anxiety Screening [facility] Start: 2012 Depression Screening Depression Scre ening [facility] Start: 2012 HEPATITIS C SCREENING HEPATITIS C SC REENING [facility] Start: 2009 HIV SCREENING HIV SCREENING [facility] Start: 1997 ANNUAL PREVENTIVE PHYSICAL (INCLUDES MAAP) ANNUAL PREVENTIVE PHYSICAL (INCLUDES MAAP) [facility] Start: 05-28-1995 COVID-19 VACCINE (#1) COVID-19 VACCI NE (#1) [facility] Start: 1994 HEPATITIS B VACCINES (1 of 3 - 3-dose series) HEPATITIS B VACCINES (1 of 3 - 3-dose series) [facility] Bacteria identified in Urine by Culture BACTERIAL CULTURE, URINE Microbiology Routine Encounter for supervision of normal in multigravida 8 weeks gestation of 07/31/2024 9:53 AM [facility] Chlamydia trachomatis+Neisseria gonorrhoeae DNA [Presence] in Unspecified specimen by MICHAEL with probe detection GONORRHEA/CHLAMYDIA NAAT Lab Routine Encounter for supervision of normal in multigravida 8 weeks gestation of 07/31/2024 9:53 AM [facility] nonstress test NON-S TRESS TEST Procedures Routine Encounter for supervision of other normal in third trimester (HCC) 40 weeks gestation of (HCC) Ordered: 03/11/2025 [facility] Comment on above: Ordered: 03/11/2025 HIGH RISK HUMAN PAPILLOMA VIRUS (HPV), PCR FOR DETECTION AND GENOTYPING HIGH RISK HUMAN PAPILLOMA VIRUS (HPV), PCR FOR DETECTION AND GENOTYPING Lab Routine Encounter for supervision of normal in multigravida 8 weeks gestation of 07/31/2024 9:53 AM [facility] End: 02-23-2026 OBSTETRIC ULTRASOUND WHI OBSTETRIC ULTRASOUND [...] 8 weeks gestation of 07/31/2024 9:53 AM [facility] Patient Education Kick Counts ED False Labor OB Triage: Return to Hospital or Notify Physician if you Experience: [facility] Work Phone: ROUTINE, GR OUP B STREPTOCOCCUS BY PCR ROUTINE, GROUP B STREPTOCOCCUS BY PCR Microbiology Routine Encounter for supervision of other normal in third trimester (HCC) 02/11/2025 9:00 AM EDT [facility] Work Phone: URINE OB DIP B/O URINE OB DIP B/ O Lab Routine 34 weeks gestation of ([facility]) Encounter for supervision of other normal in third trimester ([facility]) Ordered: 01/28/2025 [facility] Work Phone: Comment on above: Ordered: 01/28/2025 Immunizations Immunization Date Immunization Notes Care Provider Musa chamorro 05-21-2018 influenza virus vacc ine, unspecified formulation Ling Daly 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 Payers Date Payer Category Payer Self-pay 2022 Managed Care (Private) [facility] [employer] [id number] 2022 Medicaid [id number] 2022 Medicaid [id number] 2022 Unknown [id number] 2020 Private Health Insurance [id number] 2014 Unknown [id number] 1994 Unknown [id number] [id number]. 201 1994 Unknown [id number] [id number]. 201 1994 Unknown [id number] .[id number]. 201 Private Health Insurance [facility] PL[facility] [id number] Effective for all dates [address] [address] [place] [address] EPO [id number] Unknown [id number] [id number]. 246 Unknown [id number] 2.16840.1.899984.3.579.2. 246 Unknown [id number] 2.16.840.1.985436.3.579.2. 246 Unknown [id number] 2.16840.1.098881.3.579.2. 246 Unknown [id number] 2.16840.1.355634.3.579.2. 246 Unknown [id number] 2.16840.1.113655.3.579.2. 246 Unknown [id number] 2.840.1.771076.3.579.2. 246 Unknown [id number] 2.840.1.819257.3.579.2. 246 Unknown [id number] 2.16840.1.121964.3.579.2. 246 Unknown [id number] 2.16.840.1.770282.3.579.2. 246 Unknown [id number] 2.16840.1.549608.3.579.2. 246 Unknown [id number] 2.840.1.656403.3.579.2. 246 Unknown [id number] 2.840.1.090335.3.579.2. 246 Unknown [id number] 2.840.1.745677.3.579.2. 246 Unknown [id number] Unknown [id number] Unknown [id number] Unknown [id number] Unknown [id number]. 462 Social History Date Type Detail Facility Start: 02-02-2011 End: 04-12-2022 Tobacco smoking status NHIS Never smoked tobacco [facility] Start: 02-02-2011 End: 04-12-2022 Tobacco use and exposure Smokeless tobacco non-user [facility] Start: 04-23-2022 End: 03-07-2025 Alcohol intake Ex-drinker (finding) [facility] Start: 1995 Sex Assigned At Not on file P [facility] Start: 04-13-2022 End: 04-23-2022 Exposure to SARS-CoV-2 (event) Not sure [facility] Start: 10-25-2023 Alcoholic beverage intake Curr ent non-drinker of alcohol (finding) [facility] Start: 10-25-2023 End: 07-31-2024 History of Social function [facility] Start: 10-25-2023 End: 07-31-2024 Tobacco use panel [facility] The thought of jt archer myself has occurred to me Never [facility] Start: 06-17-2012 National Score (1-10 0), lower number is lower risk 60 [facility] Start: 06-15-2024 [facility] Start: 1995 Sex assigned at Female C [facility] Start: 07-30-2024 Gender identity Identifies as female gender (finding) [facility] Start: 07-30-2024 Sexual orientation Heterosexual (evelyne cade) [facility] Goals Date Patient Goal Desired Activity /State Personal health goal Comment on above: Formatting of this n ote might be different from the original. Pt to follow up with a pap smear in 2 mo Personal health goal Functional Status Date Assessment Result Facility 05-18-2021 Are you deaf, or do you have serious difficulty hearing No 05/18/2021 9:50 AM Alana Andrews CMA [facility] Work Phone: 05-18-2021 Are you blind, or do you have serious difficulty seeing, even when wearing glasses No 05/18/2021 9:50 AM Alana Andrews CMA [facility] 05-18-2021 Do you have serious difficulty walking or climbing stairs No 05/18/2021 9:50 AM Alana Andrews CMA [facility] 05-18-2021 Do you have difficul ty dressing or bathing No 05/18/2021 9:50 AM EDT Alana Murphy, ROCIO [facility] 05-18-2021 Because of a physica l, mental, or emotional condition, do you have difficulty doing errands alone such as visiting a physician's office or shopping No 05/18/2021 9:50 AM EDT Alana Murphy, DEVOPS DEVELOPER [facility] Mental Status Date Assessment Result Facility 05-18-2021 Because of a physica l, mental, or emotional condition, do you have serious difficulty concentrating, remembering, or making decisions No 05/18/2021 9:50 AM EDT Alana Murphy, ROCIO [facility] Clinical Notes 04-23-2022 to 03-14-2025 Quick Notes - Khadra Mancini APRN.[facility] - 03/14/2025 1:40 PM EDTCKhadra salinas APRN.[facility] - 03/14/2025 1:40 PM EDTPrenatal Quick Notes [...] discussed with the Patient or Patient's Authorized Chain Pegger. As applicable, any other physician, advance practice provider, medical student, or other health professional student that will be observing or involved in the sensitive examination for educational or training purposes was discussed with the Patient or Authorized Chain Pegger. The Patient or Authorized Chain Pegger has agreed to proceed with the sensitive examination. ASSESSMENT/PLAN: 1. Encounter for supervision of other normal in third trimester -IOL on 03/21 at 0700 with MAGDIEL Stinson to manage 2. 40 weeks gestation of 3. Multiparity PTL precautions reviewed and when to call Khadra Mancini APRN.CNM [facility] 03-14-2025 History of Presen t illness Narrative [...] Khadra Mancini APRN.CNM documented in this encounter [facility] 03-14-2025 Miscellaneous Notes Formattin g of this [...] discussed with the Patient or Patient's Authorized Chain Pegger. As applicable, any other physician, advance practice provider, medical student, or other health professional student that will be observing or involved in the sensitive examination for educational or training purposes was discussed with the Patient or Authorized Chain Pegger. The Patient or Authorized Chain Pegger has agreed to proceed with the sensitive examination. ASSESSMENT/PLAN: 1. Encounter for supervision of other normal in third trimester -IOL on 03/21 at 0700 with MAGDIEL Stinson to manage 2. 40 weeks gestation of 3. Multiparity PTL precautions reviewed and when to call Khadra Mancini APRN.CNCandice documented in this encounter [facility] 03-14-2025 Note Indication Evaluation of growth, Evaluation [...] survey as detailed below. Recommendations - Per toll lineman, NST was performed and was reactive - [...] prior assessment 40 w + 6 d KIA by prior assessment: 03/08/2025 Ultrasound [...] 5 oz EFW by: Hadlock (HC-AC-FL) Extended Precision Lens Grinder 7.1 mm Extremities / Bony Struc FL [...] 03/14/2025 10:01 AM EDT SEQUENTIAL SCREENINGS The [facility] offers sequential screenings for women who [...] It will require an appointment with our lay out technician. This is not an ultrasound performed [...] the above symptoms, contact our office at [phone] and ask to speak with a nurse. After hours, you can call doctors registry at [phone] OR call [facility] at [phone] and ask to have the doctor cotton jammer paged. If you consider this an emergency, dial 5-2-7 or go to your nearest emergency department. NEED HELP? Are you dealing with a violent or abusive relationship? Are you a victim of rape or sexual assult? Call [facility] [place] ([facility] 24 hour Crisis Hotline: 255.463.9435 or 412-888-9479. MANUAL Your Guide to a Healthy manual is now on-line. Visit [email or web address]/[email or web address] Dayne to download your free copy documented in this encounter [facility] 03-13-2025 History and physi jaxson note [facility] 03-12-2025 Telephone encounter Note 40w4d Patient [...] aware that MAGDIEL and CP are not cotton jammer today. L&D notified. Updated H&P faxed to L&d. Patient lives minutes away from the hospital. Nica Law RN [facility] 03-12-2025 Miscellaneous Notes 40w4d Patient called [...] aware that MAGDIEL and CP are not cotton jammer today. L&D notified. Updated H&P faxed to L&d. Patient lives minutes away from the hospital. Nica Law RN documented in this encounter [facility] 03-11-2025 Progress note Formatting of t [...] discussed with the Patient or Patient's Authorized Chain Pegger. As applicable, any other physician, advance practice provider, medical student, or other health professional student that will be observing or involved in the sensitive examination for educational or training purposes was discussed with the Patient or Authorized Chain Pegger. The Patient or Authorized Chain Pegger has agreed to proceed with the sensitive [...] RTO in 3 days Khadra Mancini APRN.CNM [facility] 03-11-2025 Miscellaneous Notes MAGDIEL-S: Yanet Banks [...] discussed with the Patient or Patient's Authorized Chain Pegger. As applicable, any other physician, advance practice provider, medical student, or other health professional student that will be observing or involved in the sensitive examination for educational or training purposes was discussed with the Patient or Authorized Chain Pegger. The Patient or Authorized Chain Pegger has agreed to proceed with the sensitive [...] Khadra Mancini APRN.CNM documented in this encounter [facility] 03-11-2025 Instructions Carli Youngblood MA - 03/11/2025 10:28 AM EDT SEQUENTIAL SCREENINGS The [facility] offers sequential screenings for women who [...] It will require an appointment with our lay out technician. This is not an ultrasound performed [...] the above symptoms, contact our office at [phone] and ask to speak with a nurse. After hours, you can call doctors registry at [phone] OR call [facility] at [phone] and ask to have the doctor cotton jammer paged. If you consider this an emergency, dial 9-1-9 or go to your nearest emergency department. NEED HELP? Are you dealing with a violent or abusive relationship? Are you a victim of rape or sexual assult? Call [facility] ([facility] 24 hour Crisis Hotline: 221.718.4110 or 656-001-0698. MANUAL Your Guide to a Healthy manual is now on-line. Visit [email or web address]/HealthyPregn ancyGuide to download your free copy documented in this encounter [facility] 03-07-2025 Telephone encounter Note Faxed signed angela consent to [facility] 03/07/2025. Erasto Brunson LPN [facility] 03-07-2025 Miscellaneous Notes Faxed signed angela consent to [facility] 03/07/2025. Erasto Brunson LPN documented in this encounter [facility] 03-07-2025 Progress note Formatting of t [...] or sooner if needed Annie Thakur APRN.CNM [facility] 03-07-2025 Miscellaneous Notes S: Yanet Banks is [...] Annie Thakur APRN.CNM documented in this encounter [facility] 03-07-2025 Instructions Erasto Brunson LPN - 03/07/2025 1:09 PM EDT SEQUENTIAL SCREENINGS The [facility] offers sequential screenings for women who [...] It will require an appointment with our lay out technician. This is not an ultrasound performed [...] the above symptoms, contact our office at [phone] and ask to speak with a nurse. After hours, you can call doctors registry at [phone] OR call [facility] at [phone] and ask to have the doctor cotton jammer paged. If you consider this an emergency, dial 9-7-5 or go to your nearest emergency department. NEED HELP? Are you dealing with a violent or abusive relationship? Are you a victim of rape or sexual assult? Call [facility] ([place]) 24 hour Crisis Hotline: 432.222.7661 or 353-248-0071. MANUAL Your Guide to a Healthy manual is now on-line. Visit [email or web address]/HealthyPregn ancyGuide to download your free copy documented in this encounter [facility] 03-05-2025 Progress note Formatting of t [...] tender ASSESSMENT/PLAN: 1. 39 weeks gestation of ([facility]) - ICD9: V22.2, ICD10: Z3A.39 (primary diagnosis) 2. Encounter for supervision of other normal in third trimester ([facility]) - ICD9: V22.1, - R/B of membrane sweep discussed and questions answered - Desires water - needs to sign consent - Plan is to return to office on Monday for CE with membrane sweep - Labor precautions reviewed and when to call Annie Thakur APRN.CNM [facility] 03-05-2025 Miscellaneous Notes S: Yanet Banks [...] tender ASSESSMENT/PLAN: 1. 39 weeks gestation of ([facility]) - ICD9: V22.2, ICD10: Z3A.39 (primary diagnosis) 2. Encounter for supervision of other normal in third trimester ([facility]) - ICD9: V22.1, - R/B of membrane sweep discussed and questions answered - Desires water - needs to sign consent - Plan is to return to office on Monday for CE with membrane sweep - Labor precautions reviewed and when to call Annie Thakur APRN.CNM documented in this encounter [facility] 03-05-2025 Instructions Erasto Brunson LPN - 03/05/2025 8:38 AM EDT SEQUENTIAL SCREENINGS The [facility] offers sequential screenings for women who [...] It will require an appointment with our lay out technician. This is not an ultrasound performed [...] the above symptoms, contact our office at [phone] and ask to speak with a nurse. After hours, you can call doctors registry at [phone] OR call [facility] at [phone] and ask to have the doctor cotton jammer paged. If you consider this an emergency, dial 9-1-1 or go to your nearest emergency department. NEED HELP? Are you dealing with a violent or abusive relationship? Are you a victim of rape or sexual assult? Call [facility] ([place]) 24 hour Crisis Hotline: 525.827.2891 or 548-010-8592. MANUAL Your Guide to a Healthy manual is now on-line. Visit [email or web address]/HealthyPregn ancyGuide to download your free copy documented in this encounter [facility] 02-25-2025 Note HNO ID: [id number] Author: NIRU CASAREZ MA Service: ? Author Type: Product Manager Medical Device Type: Progress Notes Filed: 02/25/2025 14:13 Note Text: POPULATION HEALTH NAVIGATION OUTREACH Action/FYI Electric Razor Mechanic updated per documentation. Reason for Outreach Medicaid OB/Peds Care Gaps due: N/A Patient Contacted: Unable or unnecessary to reach patient: color paste mixer added Navigation Signature: Niru Birch MA February 25, 2025 12:14 PM [facility] 02-25-2025 History of Presen t illness Narrative POPULATION HEALTH NAVIGATION OUTREACH Action/FYI Electric Razor Mechanic updated per documentation. Reason for Outreach Medicaid OB/Peds Care Gaps due: N/A Patient Contacted: Unable or unnecessary to reach patient: [place] color paste mixer added Navigation Signature: Niru Birch MA February 25, 2025 12:14 PM documented in this encounter [facility] 02-25-2025 Progress note Formatting of t [...] RTO in 1 weeks Khadra Mancini APRN.CNM [facility] 02-25-2025 Miscellaneous Notes MAGDIEL-S: Yanet Banks [...] Khadra Mancini APRN.CNM documented in this encounter [facility] 02-25-2025 Instructions Carli Youngblood MA - 02/25/2025 8:00 AM EDT SEQUENTIAL SCREENINGS The [facility] offers sequential screenings for women who [...] It will require an appointment with our lay out technician. This is not an ultrasound performed [...] the above symptoms, contact our office at [phone] and ask to speak with a nurse. After hours, you can call doctors registry at [phone] OR call [facility] at [phone] and ask to have the doctor cotton jammer paged. If you consider this an emergency, dial 6-6-5 or go to your nearest emergency department. NEED HELP? Are you dealing with a violent or abusive relationship? Are you a victim of rape or sexual assult? Call [facility] ([place]) 24 hour Crisis Hotline: 600.409.1312 or 490-978-5494. MANUAL Your Guide to a Healthy manual is now on-line. Visit [email or web address].[email or web address]/HealthyPregn ancyGuide to download your free copy documented in this encounter [facility] 02-25-2025 Note Patient Outreach (NE TNAV) YANET BANKS ([id number]) 1995 F Date Time Provider Department 02/25/25 NIRU CASAREZ During your visit today, we recorded the following information about you: Niru Casarez MA 02/25/2025 2:13 PM Signed POPULATION HEALTH NAVIGATION OUTREACH Action/FYI Electric Razor Mechanic updated per documentation. Reason for Outreach Medicaid OB/Peds Care Gaps due: N/A Patient Contacted: Unable or unnecessary to reach patient: [place] color paste mixer added Navigation Signature: Niru Birch MA February [...] Encounter Status:Closed by NIRU CASAREZ on 02/25/25 [facility] 02-11-2025 Progress note Formatting of t his [...] was discussed with the patient or authorized access services representative. The patient or authorized access services representative has agreed to proceed with the sensitive examination. @ 36.3 weeks Assessment & Plan Encounter for supervision of other normal in third trimester (HCC) Orders: URINE OB DIP B/O ROUTINE, GROUP B STREPTOCOCCUS BY PCR 36 weeks gestation of (HCC) GBS today Kick counts and labor reviewed RTO weekly Vertex confirmed on bedside US Orders: URINE OB DIP B/O Chinyere Enamorado MD [facility] Work Phone: 02-11-2025 Miscellaneous Notes DM-Pt doing well. Denies vaginal Bleeding, Leaking fluid, or regular Contractions. Pt reports good movement Physical Exam: Gen: female in no apparent distress Abd: soft, Gravid. Non tender to palpation. See flow sheet Participation of a fellow, resident, medical student, or advanced practice provider student in performing the sensitive examination was discussed with the patient or authorized access services representative. The patient or authorized access services representative has agreed to proceed with the sensitive examination. @ 36.3 weeks Assessment & Plan Encounter for supervision of other normal in third trimester (HCC) Orders: URINE OB DIP B/O ROUTINE, GROUP B STREPTOCOCCUS BY PCR 36 weeks gestation of ([facility]) GBS today Kick counts and labor reviewed RTO weekly Vertex confirmed on bedside US Orders: URINE OB DIP B/O Chinyere Enamorado MD documented in this encounter [facility] 02-11-2025 Instructions Melida Le MA - 02/11/2025 8:40 AM EDT SEQUENTIAL SCREENINGS The [facility] offers sequential screenings for women who [...] It will require an appointment with our lay out technician. This is not an ultrasound performed [...] the above symptoms, contact our office at [phone] and ask to speak with a nurse. After hours, you can call doctors registry at [phone] OR call [facility] at [phone] and ask to have the doctor cotton jammer paged. If you consider this an emergency, dial or go to your nearest emergency department. NEED HELP? Are you dealing with a violent or abusive relationship? Are you a victim of rape or sexual assult? Call [facility] ([facility] 24 hour Crisis Hotline: 811.841.9475 or 090-348-6474. MANUAL Your Guide to a Healthy manual is now on-line. Visit [email or web address].[email or web address]/HealthyPregn ancyGuide to download your free copy documented in this encounter [facility] 01-29-2025 Telephone encounter Note Patient notified and voiced understanding. Lolis Anders RN [facility] 01-29-2025 Miscellaneous Notes Patient notified and [...] Nica Law RN documented in this encounter [facility] 01-28-2025 Telephone encounter Note Agree call if pain is severe, persistent or associated with other symptoms such as bleeding, LOF. For pain in advise warm baths or showers, rest, and Tylenol PRN. If pain does not improve with that can call [facility] Work Phone: 01-28-2025 Telephone encounter Note 34w3d Patient seen in office today and forgot to mention some pain she had on Monday after she was seen by the Chiropractor. Several hours after she had a side line adjustment on Monday she had a sharp pain in her cervix. Pain rate of 7-8. Said it felt much different than Guánica Barnett. The pain returned again today after [...] out of the office. Nica Law RN [facility] 01-28-2025 Progress note Formatting of t his note might be different from the original. SW- Pt doing well. No regular ctx. No vb, lof. Good FM PE: Gen- NAD, well appearing Abd- Soft, gravid, NT See flowsheet A/p 34 wk gestation - Discussed eating dates in - Discussed upcoming expectations - RTO 2 wks Arthur Conklin DO [facility] 01-28-2025 Miscellaneous Notes SW- Pt doing well. No regular ctx. No vb, lof. Good FM PE: Gen- NAD, well appearing Abd- Soft, gravid, NT See flowsheet A/p 34 wk gestation - Discussed eating dates in - Discussed upcoming expectations - RTO 2 wks Arthur Conklin DO documented in this encounter [facility] 01-28-2025 Instructions Clifton, NiruNATHANAEL - 01/28/2025 8:38 AM EDT SEQUENTIAL SCREENINGS The [facility] offers sequential screenings for women who [...] It will require an appointment with our lay out technician. This is not an ultrasound performed [...] the above symptoms, contact our office at [phone] and ask to speak with a nurse. After hours, you can call doctors registry at [phone] OR call [facility] at [phone] and ask to have the doctor cotton jammer paged. If you consider this an emergency, dial 9--1 or go to your nearest emergency department. NEED HELP? Are you dealing with a violent or abusive relationship? Are you a victim of rape or sexual assult? Call [facility] ([place]) 24 hour Crisis Hotline: 446.320.4129 or 672-197-1504. MANUAL Your Guide to a Healthy manual is now on-line. Visit [email or web address]/HealthyPregn ancyGuide to download your free copy documented in this encounter [facility] 01-14-2025 Progress note Formatting of t [...] RTO in 2 weeks Khadra Mancini APRN.CNM [facility] 01-14-2025 Miscellaneous Notes MAGDIEL-S: Yanet Banks is [...] Khadra Mancini APRN.CNM documented in this encounter [facility] 01-14-2025 Instructions Khadra Mancini APRN.CNM - [...] easy pie crust in the food service aide. Add soaked dates to homemade nut butter for a sweet treat. Add dates to eduardo homemade salad dressing. Add dates during easily with these yummy (paleo friendly) bars made from dates. What Is Red Raspberry [facility] Tea? Red raspberry leaf tea comes from [...] , and too. How Much Red Raspberry [facility] Tea to Drink? With your doctor or right of way supervisor s approval, start with 1 cup of [...] because of uterine cramping. Is Red Raspberry [facility] Tea the Same as Raspberry [facility] Tea? How About Plain Old Raspberry Tea? Sometimes. You really need to look at the ingredients to be sure. Note that there is no difference between red raspberry leaf and raspberry leaf. Tã Em Bé or DeepField Raspberry [facility] Tea are two good brands. The red [...] outlined in this article. The [employer] www.Gobbler I named this 'circuit' after my friend [...] sideways, 2 at a time, (have a elevator constructor helper downstairs of you!), take a walk outside [...] the pelvis. Aziza Amos: Circuit Creator - www.eldridgeRebiotixundbirthcollective.Treatful Corrie Arevalo, CD, BDT (NICOLE), LCCE, FACCE: Supporting Content - www.corrieSuja Juiceclemente.ActionRun Rose Gee: Photography - www.EPAM Systems Pastora Garcia CD/CDT (ALIAD): Print and Mine Motor Engineer - www.myVBO Circuit Masterminds [employer] www.Gobbler What is my perineum? Your perineum is [...] the above symptoms, contact our office at [phone] and ask to speak with a nurse. After hours, you can call doctors registry at [phone] OR call [facility] at [phone] and ask to have the doctor cotton jammer paged. If you consider this an emergency, dial 5-1-1 or go to your nearest emergency department. NEED HELP? Are you dealing with a violent or abusive relationship? Are you a victim of rape or sexual assult? Call [facility] ([place]) 24 hour Crisis Hotline: 486.844.9421 or 058-159-8483. MANUAL Your Guide to a Healthy manual is now on-line. Visit [email or web address].org/HealthyPregn ancyGuide to download your free copy documented in this encounter [facility] 01-01-2025 Telephone encounter Note 3rd risk assessment form submitted 01/01/2025. Nica Uriarte RN [facility] 01-01-2025 Miscellaneous Notes 3rd risk assessment form submitted 01/01/2025. Nica Uriarte RN documented in this encounter [facility] 12-31-2024 Progress note Formatting of t [...] RTO in 2 weeks Khadra Mancini APRN.CNM [facility] 12-31-2024 Miscellaneous Notes MAGDIEL-S: Yanet Banks [...] Khadra Mancini APRN.CNM documented in this encounter [facility] 12-31-2024 Instructions Khadra Mancini APRN.CNM - 12/31/2024 8:07 AM EDT [facility] [address] [place] [address] [facility] [address] [place] [address] [facility] [address] [place] [address] [facility] [address] [place] [address] [email or web address] [email or web address] [address] [place] [address] [facility] [address] [facility] [place] [address] [email or web address] [facility] [address], [place] [address] [email or web address] [facility] [phone] [address] [place] [address] [facility] [address] [address] Have [place] office also [phone] [email or web address] [facility]/ [facility] [phone] [address] [facility] [address] [place] [address] [facility], [address] [address] [email or web address] CallWorks [facility] [address] [place] [address] [email or web address] SIGNS AND SYMPTOMS OF LABOR 1. Contractions every 10 minutes or more often 2. Clear, pink, or brownish fluid (water) leaking from vagina 3. Feeling that baby is pushing down, pressure 4. Low, dull backache 5. Cramps that feel like a period 6. Cramps with or without diarrhea If you notice any of the above symptoms, contact our office at [phone] and ask to speak with a nurse. After hours, you can call doctors registry at [phone] OR call [facility] at [phone] and ask to have the doctor cotton jammer paged. If you consider this an emergency, dial 9-- or go to your nearest emergency department. NEED HELP? Are you dealing with a violent or abusive relationship? Are you a victim of rape or sexual assult? Call [facility] ([place]) 24 hour Crisis Hotline: 878.736.4363 or 550-280-7980. MANUAL Your Guide to a Healthy manual is now on-line. Visit [email or web address].org/HealthyPregn ancyGuide to download your free copy documented in this encounter [facility] 12-17-2024 Progress note Formatting of t [...] RTO in 2 weeks Khadra Mancini APRN.CNM [facility] Work Phone: 12-17-2024 Miscellaneous Notes MAGDIEL-S: [...] Khadra Mancini APRN.CNM documented in this encounter [facility] 12-17-2024 Instructions Khadra Mancini APRN.CNM - [...] the above symptoms, contact our office at [phone] and ask to speak with a nurse. After hours, you can call doctors registry at [phone] OR call [facility] at [phone] and ask to have the doctor cotton jammer paged. If you consider this an emergency, dial 9-1-2 or go to your nearest emergency department. NEED HELP? Are you dealing with a violent or abusive relationship? Are you a victim of rape or sexual assult? Call [facility] ([place]) 24 hour Crisis Hotline: 646.237.1664 or 645-391-2396. MANUAL Your Guide to a Healthy manual is now on-line. Visit [email or web address] ancyGuide to download your free copy documented in this encounter [facility] 11-19-2024 Progress note Formatting of t [...] when to call RTO in 4 weeks [facility] 11-19-2024 Miscellaneous Notes MAGDIEL-S: Yanet Banks [...] in 4 weeks documented in this encounter [facility] 11-19-2024 Instructions Raquel Beatty MA - 11/19/2024 11:23 AM EDT SEQUENTIAL SCREENINGS The [facility] offers sequential screenings for women who [...] It will require an appointment with our lay out technician. This is not an ultrasound performed [...] the above symptoms, contact our office at [phone] and ask to speak with a nurse. After hours, you can call doctors registry at [phone] OR call [facility] at [phone] and ask to have the doctor cotton jammer paged. If you consider this an emergency, dial 9-1-0 or go to your nearest emergency department. NEED HELP? Are you dealing with a violent or abusive relationship? Are you a victim of rape or sexual assult? Call [facility] ([place]) 24 hour Crisis Hotline: 398.384.1897 or 711-507-0315. MANUAL Your Guide to a Healthy manual is now on-line. Visit [email or web address]/HealthyPregn ancyGuide to download your free copy documented in this encounter [facility] 10-24-2024 Telephone encounter Note 2nd risk assessment form submitted 10/24/2024. Nica Uriarte RN [facility] 10-24-2024 Miscellaneous Notes 2nd risk assessment form submitted 10/24/2024. Nica Uriarte RN documented in this encounter [facility] 10-23-2024 Progress note Formatting of t his note might be different from the original. S: aYnet Banks is a 28 year old female [...] - RTO 4 weeks Annie Thakur APRN.CNM [facility] 10-23-2024 Miscellaneous Notes S: Yanet Banks [...] Annie Thakur APRN.CNM documented in this encounter [facility] 10-23-2024 Instructions Erasto Brunson LPN - 10/23/2024 8:42 AM EDT SEQUENTIAL SCREENINGS The [facility] offers sequential screenings for women who [...] It will require an appointment with our lay out technician. This is not an ultrasound performed [...] the above symptoms, contact our office at [phone] and ask to speak with a nurse. After hours, you can call doctors registry at [phone] OR call [facility] at [phone] and ask to have the doctor cotton jammer paged. If you consider this an emergency, dial 9-1-4 or go to your nearest emergency department. NEED HELP? Are you dealing with a violent or abusive relationship? Are you a victim of rape or sexual assult? Call [facility] ([place]) 24 hour Crisis Hotline: 566.453.8129 or 028-533-9162. MANUAL Your Guide to a Healthy manual is now on-line. Visit [email or web address]/HealthyPregn ancyGuide to download your free copy documented in this encounter [facility] 09-24-2024 Progress note Formatting of t [...] RTO in 4 weeks Khadra Mancini APRN.CNM [facility] Work Phone: 09-24-2024 Miscellaneous Notes MADGIEL-S: Yanet Banks is a 28 year old [...] Khadra Mancini APRN.CNM documented in this encounter [facility] 09-24-2024 Instructions Rodo Singleton MA - 09/24/2024 9:34 AM EDT SEQUENTIAL SCREENINGS The [facility] offers sequential screenings for women who [...] It will require an appointment with our lay out technician. This is not an ultrasound performed [...] the above symptoms, contact our office at [phone] and ask to speak with a nurse. After hours, you can call [employer] registry at [phone] OR call [facility] at [phone] and ask to have the doctor cotton jammer paged. If you consider this an emergency, dial 9-1-9 or go to your nearest emergency department. NEED HELP? Are you dealing with a violent or abusive relationship? Are you a victim of rape or sexual assult? Call [facility] ([place]) 24 hour Crisis Hotline: 608.992.3658 or 978-510-7861. MANUAL Your Guide to a Healthy manual is now on-line. Visit [email or web address]/HealthyPregn ancyGuide to download your free copy documented in this encounter [facility] 08-28-2024 Progress note Formatting of t [...] - RTO 4 weeks Annie Thakur APRN.CNM [facility] 08-28-2024 Miscellaneous Notes S: Yanet Banks [...] Annie Thakur APRN.CNM documented in this encounter [facility] 08-28-2024 Instructions Rodo Singleton MA - 08/28/2024 9:20 AM EST SEQUENTIAL SCREENINGS The [facility] offers sequential screenings for women who [...] It will require an appointment with our lay out technician. This is not an ultrasound performed [...] the above symptoms, contact our office at [phone] and ask to speak with a nurse. After hours, you can call doctors registry at [phone] OR call [facility] at [phone] and ask to have the doctor cotton jammer paged. If you consider this an emergency, dial 9-1-4 or go to your nearest emergency department. NEED HELP? Are you dealing with a violent or abusive relationship? Are you a victim of rape or sexual assult? Call [facility] ([facility] 24 hour Crisis Hotline: 111.410.3010 or 747-068-0561. MANUAL Your Guide to a Healthy manual is now on-line. Visit [email or web address].[email or web address]/HealthyPregn ancyGuide to download your free copy documented in this encounter [facility] 08-01-2024 Telephone encounter Note 1st risk assessment form submitted 08/01/24 Shi Medley RN [facility] 08-01-2024 Miscellaneous Notes 1st risk assessment form submitted 08/01/24 Shi Medley RN documented in this encounter [facility] 07-31-2024 Progress note Formatting of t his note might be different from the original. Patient is here for NOB. See progress note. Annie Thakur APRN.CNM [facility] 07-31-2024 Miscellaneous Notes Patient is here for NOB. See progress note. Annie Thakur APRN.CNM documented in this encounter [facility] 07-30-2024 Note HNO ID: [id number] Author: ANNIE THAKUR APRN.CNM Service: ? Author Type: Oven Roaster Type: Progress Notes Filed: 07/31/2024 10:13 Note [...] the following (please check all that apply)? Oven Roaster care Social History: Do you have any [...] harming myself has occurred to me. 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 (Pat (more content not included)... [facility] 07-30-2024 History of Presen t illness Narrative [...] the following (please check all that apply)? Oven Roaster care Social History: Do you have any [...] harming myself has occurred to me. 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 As applicable, any other physician, advance practice provider, medical student, or other health professional student that will be observing or involved in the sensitive examination for educational or training purposes was discussed with the Patient or Authorized Chain Pegger. The Patient or Authorized Chain Pegger has agreed to proceed with the sensitive [...] Your guide to a health and the Superintendent Drilling. Reviewed midwifery and tub washer services that are available. 2) Screening: Hemoglobin [...] NITISH Thakur APRN.CNM documented in this encounter [facility] 07-30-2024 Instructions Erasto Brunson LPN - 07/30/2024 3:46 PM EST Please select the following link to access the [facility] Your Guide to a Healthy . [email or web address] Please select the following link to access the [facility] Your Guide to a Healthy . [email or web address] documented in this encounter [facility] 07-29-2024 Telephone encounter Note Last visit- 10/25/23 Last refill- 11/22/23 [facility] 07-29-2024 Miscellaneous Notes Last visit- 10/25/23 Last refill- 11/22/23 documented in this encounter [facility] 10-25-2023 Note Encounter Department : [facility] OF [facility] Progress Notes by BRYAN Go at 10/25/2023 7:40 AM Author: BRYAN GoService: -Author Type: Nurse Practitioner Filed: 10/25/2023 9:31 AMEncounter Date: 10/25/2023Status: Signed Gas Pipe Layer: BRYAN Go (Nurse Practitioner) Yanet Banks Age: [...] She is requesting to return back to [facility] as before. She is aware that her [...] Medication List: Current Outpatient Medications [facility] MedicationSigDispenseRefill -etonogestreL-ethinyl estradioL (NUVARING) 0.12-0.015 mg/24 hr vaginal ringInsert vaginally and leave in place for 3 consecutive weeks, then remove for 1 week.1 each0 No current [facility]-ordered facility-administered medications on file. Allergies: Allergies AllergenReactions -AzithromycinHives and Diarrhea -Pertussis VaccinesHives Visit Vitals BP120/78 (Ortho BP Site: Left Upper Arm, Ortho BP Position: Sitting, Ortho BP Cuff Size: Regular Adult) Pulse(!) 56 Temp97.8 ?F (36.6 ?C) Resp16 Wt114 lb 8 oz (51.9 kg) [id number]% BMI21.63 kg/m? Physical Exam: Physical Exam Vitals [...] Assessment and Pl (more content not included)... [facility] 07-27-2023 Note Encounter Department : [facility] Progress Notes by Maryann Mathias MD at 07/27/2023 10:20 AM Author: MENDOZA Lezamaervice: -Author Type: Physician Filed: 07/27/2023 12:42 PMEncounter Date: 07/27/2023Status: Signed Gas Pipe Layer: Maryann Mathias MD (Physician) Yanet Banks Age: [...] Medication List: Current Outpatient Medications [facility] MedicationSigDispenseRefill -cephALEXin (KEFLEX) 500 mg capsuleTake 1 capsule (500 mg total) by mouth in the morning and 1 capsule (500 mg total) at noon and 1 capsule (500 mg total) in the evening. Do all this for 7 days.21 capsule0 -norethindrone (KRIS) 0.35 mg tabletTake 1 tablet (0.35 mg total) by mouth daily.28 No current [facility]-ordered facility-administered medications on file. Allergies: Allergies AllergenReactions -AzithromycinHives and Diarrhea -Pertussis VaccinesHives Visit Vitals BP106/71 Pulse78 Wt116 lb 1.6 oz (52.7 kg) DmZ715% BMI21.94 kg/m? Physical Exam: Physical Exam Vitals [...] unspecified etiology (Primary) Comments: Likely viral. Continue tqym-dvc-rqaicto symptomatic treatment Orders: - POCT Rapid Strep Test Mastalgia Comments: Likely clogged milk duct. Continue massage. Warm moist heat. Antibiotics only if she notices redness or warmth Other orders - cephALEXin (KEFLEX) 500 mg capsule Dispense: 21 capsule; Refill: 0 Electronically Signed by: Maryann Mathias MD, 07/27/2023 12:42 PM [facility] 01-16-2023 Note Encounter Department : [facility] Progress Notes by BRYAN Go at 01/16/2023 9:20 AM Author: BRYAN GoService: -Author Type: Nurse Practitioner Filed: 01/16/2023 2:34 PMEncounter Date: 01/16/2023Status: Signed Gas Pipe Layer: BRYAN Go (Nurse Practitioner) Yanet Banks Age: [...] Medication List: Current Outpatient Medications [facility] MedicationSigDispenseRefill -norethindrone (KRIS) 0.35 mg tabletTake 1 tablet (0.35 mg total) by mouth daily.28 [id number] No current [facility]-ordered facility-administered medications on file. Allergies: Allergies AllergenReactions -AzithromycinHives and Diarrhea -Pertussis VaccinesHives Visit Vitals BP108/70 (Ortho BP Site: Left Upper Arm, Ortho BP Position: Sitting, Ortho BP Cuff Size: Adult) Pulse68 Temp97.4 ?F (36.3 ?C) Resp16 Wt120 lb 4.8 oz (54.6 kg) RmY774% BMI22.73 kg/m? Physical Exam: Physical Exam Vitals [...] regimen is e (more content not included)... [facility] 11-19-2022 Note 11/19/22 1100 History Consult Follow-up;Discharge teaching Pt states baby well and with good frequency. Reports latch is improving. Discharge teaching reviewed/complete. Card given. No questions at this time. [facility] 11-19-2022 Note @HOSPITAL SUMMARY AT DISCHARGE [...] 7.1 oz) ADDITIONAL DIAGNOSES / COMMENTS: none [facility] 11-19-2022 Note Problem: Constipatio n Goal: [...] Outcome: Progressing Goal: Effective breast-feeding Outcome: Progressing [facility] 11-18-2022 Note Problem: Maternal In jacques Feeding - Ineffective, Risk of Goal: Parent- attachment Outcome: Progressing Goal: Effective breast-feeding Outcome: Progressing [facility] 11-18-2022 Note ICM Progress Note Chart reviewed. ICM available as needed. DC plan: Home Estimated DC Date: November 19, 2022 Electronically signed by: Estefany Joseph RN, OB Geological Survey Field Assistant, Phone [phone]. Weekday Office Hours: 7:30-4:00. Holiday/Weekends [phone]. For urgent needs between 5p-7p, please call [phone]. If after 7pm, please call [facility] at [phone]. [facility] 11-18-2022 Note Problem: Constipatio n Goal: [...] Outcome: Progressing Goal: Effective breast-feeding Outcome: Progressing [facility] 11-18-2022 Note Problem: Constipatio n Goal: [...] Outcome: Progressing Goal: Effective breast-feeding Outcome: Progressing [facility] 09-12-2022 Note Patient presents for care. [...] w/d speech clear documented in this encounter [facility] 04-23-2022 Emergency department Note Arrived with reports of having diarrhea/vomiting and fever - since this am - pt states that she began feeling bad after eating dinner last night- pt states that she is 9 weeks - denies any vaginal bleeding Temp 101 per pt report - a/o x3 skin w/d speech clear [facility] Evaluation note Diagnosis Nausea vomiting and diarrhea- Primary Nausea with vomiting documented in this encounter [facility] note* Diagnosis Encounter for initial prescription of vaginal ring hormonal contraceptive documented in this encounter [facility] note* Diagnosis Encounter for supervision of normal in multigravida- Primary 8 weeks gestation of state, incidental Multiparity documented in this encounter [facility] note* Diagnosis 12 weeks gestation of - Primary state, incidental Encounter for supervision of other normal in second trimester Multiparity documented in this encounter [facility] note* Diagnosis Encounter for screening for malformation using ultrasound- Primary 12 weeks gestation of state, incidental Encounter for (NT) nuchal translucency scan Other specified screening [facility] Diagnosis Encounter for supervision of other normal in second trimester- Primary 16 weeks gestation of state, incidental documented in this encounter [facility] note* Diagnosis 20 weeks gestation of (HCC)- Primary state, incidental Encounter for supervision of other normal in second trimester (HCC) [facility]* Diagnosis Encounter for anatomic survey (HCC)- Primary Encounter for anatomic survey 20 weeks gestation of (HCC) state, incidental documented [facility]* Diagnosis Encounter for supervision of other normal in second trimester (HCC)- Primary 24 weeks gestation of (HCC) state, incidental Screening for diabetes mellitus documented [facility]* Diagnosis Encounter for supervision of other normal in third trimester (HCC)- Primary 28 weeks gestation of (HCC) state, incidental [facility] Diagnosis Encounter for supervision of normal in multigravida (HCC)- Primary 30 weeks gestation of (HCC) state, incidental [facility] Diagnosis Encounter for supervision of other normal in third trimester (HCC)- Primary 32 weeks gestation of (HCC) state, incidental [facility] Diagnosis Encounter for supervision of other normal in third trimester (HCC)- Primary 34 weeks gestation of (HCC) state, incidental [facility] Diagnosis Encounter for supervision of other normal in third trimester (HCC)- Primary 36 weeks gestation of (HCC) state, incidental [facility] Diagnosis Encounter for supervision of other normal in third trimester (HCC)- Primary 38 weeks gestation of (HCC) state, incidental [facility] Diagnosis 39 weeks gestation of (HCC)- Primary state, incidental Encounter for supervision of other normal in third trimester (HCC) [facility] Diagnosis 39 weeks gestation of (HCC)- Primary state, incidental Encounter for supervision of other normal in third trimester (HCC) [facility] Diagnosis Encounter for supervision of other normal in third trimester (HCC)- Primary 40 weeks gestation of (HCC) state, incidental Multiparity documented [facility]* Diagnosis Onset Date Resolution Status Admit Date 40 weeks gestation of acut e March 13, 2025 1:13am Irregular contractions acute Au 2024 1:13am Labor, prolonged latent phase acute March 13, 2025 1:13am [facility] Work Phone: Evaluation note* Diagnosis Post-term , 40-42 weeks of gestation (HCC)- Primary Post term , unspecified episode of care 40 weeks gestation of (HCC) state, incidental [facility] Diagnosis Encounter for supervision of other normal in third trimester (HCC)- Primary 40 weeks gestation of (HCC) state, incidental Multiparity documented in this [facility] Author [facility]Bl[facility] Date/Time March 13, 2025 2: 04am [facility] Medical Records Department [address] [place] [address] OB Triage Physician Note 03/13/25 0152 MR#: [id number] Acct: [id number] Name: YANET BANKS Rep #:[id number] : 1995 29 From: Chinyere Lehman MD PCP: Care Physician,No Primary Status :REG CLI Y Location: [address] HPI - General General Date of [...] MD; No Primary Care Physician ~ Signed [facility] Work Phone: Hospital Discharge instructions* Attachments The following attachments cannot be sent through Care Everywhere. * Nausea and Vomiting (Belgian) * Diarrhea (Belgian) * Ondansetron, ADULT (Belgian) [facility] ([facility] Diagnostic Procedure Only (Routine) - Authorized Specialty Diagnoses / Procedures Referred By Kristen t Referred To Contact [facility] Diagnoses Encounter for supervision of normal in multigravida 8 weeks gestation of Procedures OBSTETRIC ULTRASOUND WHI US PREG UTERUS AFTER 1ST TRIMEST GESTATION Annie Thakur APRN.CNM [address] [place] [address] [facility] [place] [address] Referral ID Status Reason Start Date Expiration Date Visits Requested Visits Authorized [id number] Authorized Auto-Generat ed Referral 07/31/2024 07/31/2025 1 1 * Diagnostic Procedure Only (Routine) - Authorized Specialty Diagnoses / Procedures Referred By Kristen alston Referred To Contact [facility] Diagnoses Encounter for supervision of normal in multigravida 8 weeks gestation of Procedures OBSTETRIC ULTRASOUND WHI US PREG UTERUS AFTER 1ST TRIMEST GESTATION Annie Thakur APRN.CNM [address] [place] [place] [address] [facility] [place] [address] Referral ID Status Reason Start Date Expiration Date Visits Requested Visits Authorized [id number] Authorized Auto-Generat ed Referral 07/31/2024 07/31/2025 1 1 [facility]ative[facility]No reason for referral information availableWooMary [facility] Work Phone: Summary Purpose Family History [...] Referred By Kristen alston Referred To Contact [facility] Diagnoses Encounter for supervision of normal in multigravida 8 weeks gestation of Procedures OBSTETRIC ULTRASOUND WHI US PREG UTERUS AFTER 1ST TRIMEST GESTATION Annie Thakur, ARGENIS.CNM [address] [place] [address] Phone: tel: fax: [facility] [place] [address] Referral ID Status Reason Start Date Expiration Date V isits Requested Visits Authorized [id number] Closed Auto-Generate d Referral 07/31/2024 07/31/2025 1 1 Reason Onset Date Comments Care 09/24/2024 Reason Onset Date Comments Care 10/23/2024 Specialty Diagnoses / Procedures Referred By Kristen alston Referred To Contact [facility] Diagnoses Encounter for supervision of normal in multigravida (HCC) 8 weeks gestation of (HCC) Procedures OBSTETRIC ULTRASOUND WHI US PREG UTERUS AFTER 1ST TRIMEST GESTATION Annie Thakur, ARGENIS.CNM [address] [place] [place] [address] Phone: tel: fax: [facility] [place] [address] Referral ID Status Reason Start Date Expiration Date V isits Requested Visits Authorized [id number] Closed Auto-Generate d Referral 07/31/2024 07/31/2025 1 1 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 Reason Onset Date Comments [...] Referred By Contac t Referred To Contact [facility] Diagnoses Encounter for supervision of other normal in third trimester (HCC) 40 weeks gestation of (HCC) Procedures OBSTETRIC ULTRASOUND WHI US PREG UTERUS AFTER 1ST TRIMEST GESTATION Khadra Mancini APRN.CNCandice [address] [place] [address] Phone: tel: fax: [address] [place] [address] Referral ID Status Reason Start Date Expiration Date V isits Requested Visits Authorized [id number] Closed Auto-Generate d Referral 03/11/2025 03/11/2026 3 [...] Care Teams (unrecognized sec tion and content) Doctor Naturopathic Relationship Specialty Start Date End Date Maryann Mathias MD [address] [place] [address] PCP - General Family Practice 04/23/22 Doctor Naturopathic Relationship Specialty Start Date End Date Maryann Mathias MD [address] [place] [address] PCP - General Family Medicine 12/03/19 [...] section and content) DATE CREATED AUTHOR 11/28/2022 [facility] DATE CREATED AUTHOR AUTHOR'S ORGANIZ ATION 04/09/2023 Provider Locatio ns DATE CREATED AUTHOR AUTHOR'S ORGANIZ ATION 10/26/2023 [facility] DATE CREATED AUTHOR AUTHOR'S ORGANIZ ATION 03/12/2025 [facility] DATE CREATED AUTHOR AUTHOR'S ORGANIZ ATION 03/14/2025 [facility] Comments (unrecognize d section and content) In the event this informatio n is protected by the Federal Confidentiality of Alcohol and Drug Abuse Patient Records regulations: The Federal rules restrict any use of the information to criminally investigate or prosecute any alcohol or drug abuse patient.[facility]In the event this information is protected by the Federal Confidentiality of Alcohol and Drug Abuse Patient Records regulations: The Federal rules restrict any use of the information to criminally investigate or prosecute any alcohol or drug abuse patient.[facility] HospitalIn the event this information is protected by the Federal Confidentiality of Alcohol and Drug Abuse Patient Records regulations: The Federal rules restrict any use of the information to criminally investigate or prosecute any alcohol or drug abuse patient.[facility] HospitalIn the event this information is protected by the Federal Confidentiality of Alcohol and Drug Abuse Patient Records regulations: The Federal rules restrict any use of the information to criminally investigate or prosecute any alcohol or drug abuse patient.[facility]In the event this information is protected by the Federal Confidentiality of Alcohol and Drug Abuse Patient Records regulations: The Federal rules restrict any use of the information to criminally investigate or prosecute any alcohol or drug abuse patient.[facility] HospitalIn the event this information is protected by the Federal Confidentiality of Alcohol and Drug Abuse Patient Records regulations: The Federal rules restrict any use of the information to criminally investigate or prosecute any alcohol or drug abuse patient.[facility] HospitalIn the event this information is protected by the Federal Confidentiality of Alcohol and Drug Abuse Patient Records regulations: The Federal rules restrict any use of the information to criminally investigate or prosecute any alcohol or drug abuse patient.[facility]In the event this information is protected by the Federal Confidentiality of Alcohol and Drug Abuse Patient Records regulations: The Federal rules restrict any use of the information to criminally investigate or prosecute any alcohol or drug abuse patient.[facility] HospitalIn the event this information is protected by the Federal Confidentiality of Alcohol and Drug Abuse Patient Records regulations: The Federal rules restrict any use of the information to criminally investigate or prosecute any alcohol or drug abuse patient.[facility] HospitalIn the event this information is protected by the Federal Confidentiality of Alcohol and Drug Abuse Patient Records regulations: The Federal rules restrict any use of the information to criminally investigate or prosecute any alcohol or drug abuse patient.[facility] HospitalIn the event this information is protected by the Federal Confidentiality of Alcohol and Drug Abuse Patient Records regulations: The Federal rules restrict any use of the information to criminally investigate or prosecute any alcohol or drug abuse patient.[facility] HospitalIn the event this information is protected by the Federal Confidentiality of Alcohol and Drug Abuse Patient Records regulations: The Federal rules restrict any use of the information to criminally investigate or prosecute any alcohol or drug abuse patient.[facility] HospitalIn the event this information is protected by the Federal Confidentiality of Alcohol and Drug Abuse Patient Records regulations: The Federal rules restrict any use of the information to criminally investigate or prosecute any alcohol or drug abuse patient.[facility] HospitalIn the event this information is protected by the Federal Confidentiality of Alcohol and Drug Abuse Patient Records regulations: The Federal rules restrict any use of the information to criminally investigate or prosecute any alcohol or drug abuse patient.[facility] HospitalIn the event this information is protected by the Federal Confidentiality of Alcohol and Drug Abuse Patient Records regulations: The Federal rules restrict any use of the information to criminally investigate or prosecute any alcohol or drug abuse patient.[facility] HospitalIn the event this information is protected by the Federal Confidentiality of Alcohol and Drug Abuse Patient Records regulations: The Federal rules restrict any use of the information to criminally investigate or prosecute any alcohol or drug abuse patient.[facility]In the event this information is protected by the Federal Confidentiality of Alcohol and Drug Abuse Patient Records regulations: The Federal rules restrict any use of the information to criminally investigate or prosecute any alcohol or drug abuse patient.[facility] HospitalIn the event this information is protected by the Federal Confidentiality of Alcohol and Drug Abuse Patient Records regulations: The Federal rules restrict any use of the information to criminally investigate or prosecute any alcohol or drug abuse patient.[facility] HospitalIn the event this information is protected by the Federal Confidentiality of Alcohol and Drug Abuse Patient Records regulations: The Federal rules restrict any use of the information to criminally investigate or prosecute any alcohol or drug abuse patient.[facility] HospitalIn the event this information is protected by the Federal Confidentiality of Alcohol and Drug Abuse Patient Records regulations: The Federal rules restrict any use of the information to criminally investigate or prosecute any alcohol or drug abuse patient.[facility] HospitalIn the event this information is protected by the Federal Confidentiality of Alcohol and Drug Abuse Patient Records regulations: The Federal rules restrict any use of the information to criminally investigate or prosecute any alcohol or drug abuse patient.[facility] HospitalIn the event this information is protected by the Federal Confidentiality of Alcohol and Drug Abuse Patient Records regulations: The Federal rules restrict any use of the information to criminally investigate or prosecute any alcohol or drug abuse patient.[facility] HospitalIn the event this information is protected by the Federal Confidentiality of Alcohol and Drug Abuse Patient Records regulations: The Federal rules restrict any use of the information to criminally investigate or prosecute any alcohol or drug abuse patient.[facility]In the event this information is protected by the Federal Confidentiality of Alcohol and Drug Abuse Patient Records regulations: The Federal rules restrict any use of the information to criminally investigate or prosecute any alcohol or drug abuse patient.[facility] HospitalIn the event this information is protected by the Federal Confidentiality of Alcohol and Drug Abuse Patient Records regulations: The Federal rules restrict any use of the information to criminally investigate or prosecute any alcohol or drug abuse patient.[facility] HospitalIn the event this information is protected by the Federal Confidentiality of Alcohol and Drug Abuse Patient Records regulations: The Federal rules restrict any use of the information to criminally investigate or prosecute any alcohol or drug abuse patient.[facility] HospitalIn the event this information is protected by the Federal Confidentiality of Alcohol and Drug Abuse Patient Records regulations: The Federal rules restrict any use of the information to criminally investigate or prosecute any alcohol or drug abuse patient.[facility] Goals (unrecognized section and content) Goals may [...] BE BASED ON THE PRIMARY CLINICAL RECORDS. [facility] [employer]. provides no warranty or guarantee of the accuracy or completeness of information in this document.
[2025-03-15 21:41] LABS: Hematocrit 37.1 % (37-47); Hemoglobin 13.3 g/dL (12.0-15.0); Immature Granulocytes Count 0.040 X10^3/uL (0.0-0.0); Mean Corp Hgb Conc 35.8 g/dL (32-36); Mean Corpuscular Volume 90.7 fL (81-99); Mean Platelet Vol. 9.6 fl (6.2-12.0); NRBC Flagged by Analyzer 0 % (0-5); Platelet Count 254 K/mm3 (150-450); RBC Distribution Width CV 12.4 % (11.6-14.6); RBC Distribution Width SD 40.4 fl (35.1-43.9); Red Blood Count 4.09 M/mm3 (4.2-5.4); White Blood Count 7.3 K/mm3 (4.4-11.0)
[2025-03-15 21:55] LABS: Creatinine, Urine (random) 15.80 mg/dL (28.00-217.00); Protein, Urine (Random) 9.0 mg/dL (0.0-12.0); Protein:Creat Ratio 566 mg/g CRE (0-200)
[2025-03-15 21:57] LABS: AST(SGOT) 26 U/L (<=31); Uric Acid 4.5 mg/dL (2.6-6.0)
[2025-03-15 22:05] LABS: Alanine Aminotransfer ALT/SGPT 20 U/L (<=34); Estimated Creatinine Clearance 118.94 ml/min (50-250); Syphilis Antibodies Nonreactive (Nonreactive)
--- NOTE | 2025-03-15 23:24 | PCM.HP.OB ---
HPI - General General Date of Admission: 03/15/25 HPI Narrative CAT BURR, is a 29 F who presents at at 41 weeks with KIA 03/08/25 by LMP. Presents to labor and delivery with complaints of labor contractions increasing after visit yesterday and membrane sweep. Denies vaginal bleeding or leakage of fluid. Maternal Data Information KIA Calculator Estimated Delivery Date Method Current WG Current Estimate 03/08/25 Manual 41w 1d PFSH PFSH Home Medications ?Medication ?Instructions ?Recorded ?Last Taken ?Type magnesium 200 mg tablet 200 mg PO DAILY insomnia 03/15/25 03/14/25 17:00 History 200 mg vit no.95-ferrous 1 tab PO DAILY 03/15/25 03/14/25 17:00 History fumarate 28 mg-folic acid 800 mcg 1 TAB tablet () Allergy/AdvReac Type Severity Reaction Status Date / Time Tetanus Vaccines and Toxoid Allergy Intermediate Rash Verified 03/15/25 21:14 azithromycin (From Zithromax) Allergy Mild Upset Verified 03/15/25 21:14 Stomach Social History Smoking Status: Never smoker History Elective abortions Hx Para 2 Spontaneous abortions Hx # Term Pregnancies Ectopic pregnancies Hx # Pregnancies Multiple births # of living children NST FHR Rate Baby A Baseline: 125 Variability:: Moderate Accelerations:: 15 x 15 Decelerations:: Variable FHR Category:: Category II Uterine Activity:: Every 2-6 minutes apart, strong ROS Constitutional Constitutional: Reports systems reviewed and no addt'l complaints, except as documented; Denies headache(s) Eyes Eyes: Denies acute decrease in peripheral vision, blurry vision or change in vision ENT HEENT: Reports systems reviewed and no addt'l complaints, except as documented Cardiovascular Cardiovascular: Denies chest pain or dizziness Respiratory/Chest Respiratory/Chest: Denies cough, dyspnea, dyspnea on exertion, shortness of breath at rest or shortness of breath with exertion Gastrointestinal Gastrointestinal: Denies abdominal pain, diarrhea, nausea or vomiting Genitourinary Genitourinary: Denies abdominal discomfort Musculoskeletal Musculoskeletal: Denies limited range of motion Integumentary Integumentary: Reports systems reviewed and no addt'l complaints, except as documented Neurologic Neurologic: Reports systems reviewed and no addt'l complaints, except as documented Psychiatric Psychiatric: Reports systems reviewed and no addt'l complaints, except as documented Endocrine Endocrinology: Reports systems reviewed and no addt'l complaints, except as documented Hematologic/Lymphatic Hematologic/Lymphatic: Reports systems reviewed and no addt'l complaints, except as documented Allergic/Immunologic Allergic/Immunologic: Reports systems reviewed and no addt'l complaints, except as documented Vital Signs Vital Signs Vital Signs: 03/15/25 21:00 03/15/25 21:00 03/15/25 21:00 Temperature Temperature Source Pulse Rate 72 81 Respiratory Rate Blood Pressure 160/93 H BP Systolic 160 BP Diastolic 93 Pulse Ox 03/15/25 21:00 03/15/25 21:00 03/15/25 21:00 Temperature Temperature Source Temporal Pulse Rate Respiratory Rate 16 Blood Pressure BP Systolic BP Diastolic Pulse Ox 99 03/15/25 21:00 03/15/25 21:00 03/15/25 21:11 Temperature 98.9 F Temperature Source Pulse Rate Respiratory Rate Blood Pressure 159/96 H BP Systolic 159 BP Diastolic 96 Pulse Ox 98 03/15/25 21:11 03/15/25 21:11 03/15/25 21:24 Temperature Temperature Source Pulse Rate 73 Respiratory Rate 16 Blood Pressure 159/100 H BP Systolic 159 BP Diastolic 100 Pulse Ox 03/15/25 21:24 03/15/25 21:47 03/15/25 21:47 Temperature Temperature Source Pulse Rate 76 88 Respiratory Rate Blood Pressure 137/94 H BP Systolic 137 BP Diastolic 94 Pulse Ox 03/15/25 21:47 03/15/25 22:01 03/15/25 22:04 Temperature Temperature Source Pulse Rate Respiratory Rate 16 16 Blood Pressure 154/94 H BP Systolic 154 BP Diastolic 94 Pulse Ox 03/15/25 22:04 03/15/25 22:05 03/15/25 22:05 Temperature Temperature Source Pulse Rate 75 77 Respiratory Rate Blood Pressure 145/93 H BP Systolic 145 BP Diastolic 93 Pulse Ox 03/15/25 22:05 Temperature Temperature Source Pulse Rate Respiratory Rate 16 Blood Pressure BP Systolic BP Diastolic Pulse Ox Weight Weight: 157 lb 6.561 oz Body Mass Index (BMI) 28.8 Physical Exam Const alert and oriented x3 General Appearance: cooperative Orientation / Consciousness: awake, oriented to person, oriented to place and oriented to time Exam Limitations: no limitations HEENT normocephalic Head and Scalp: normal to inspection, normocephalic and atraumatic Face and Sinus: normal facial exam Eyes General Eye: normal appearance of both eyes Neck full ROM Chest Chest: symmetrical chest wall rise Resp normal respiratory effort and normal air movement Auscultation: clear to auscultation bilaterally Cardio regular rate, regular rhythm, S1 normal heart sound, S2 normal heart sound, no murmurs, no rub, no gallops and no clicks GI normal to inspection, nondistended, normoactive bowel sounds and non-tender appearance of the vagina normal Bladder / Kidney Exam: no CVA tenderness Back/Spine normal ROM Extremity normal to inspection and full ROM Skin no rashes or lesions noted Neuro oriented x3, CN's II-XII intact bilaterally and moves all extremities Sensorium / Orientation: awake, alert and oriented to person Motor Exam: clonus absent Deep Tendon Reflexes: Rt Patellar (L4): 2+ and Lt Patellar (L4): 2+ Labs Labs Labs: Blood Type O POSITIVE Antibody Screen NEGATIVE Hct 37.1 % (37-47) Hgb 13.3 g/dL (12.0-15.0) Syphilis Total Ab Nonreactive (Nonreactive) GBS negative RPR negative HIV negative HBsAG negative HepC negative GC/CT negative O positive 1hr GCT normal Assessment & Plan (1) 41 weeks gestation of : (2) Active labor at term: (3) Multiparous: PLAN: Plan 1) Admit to labor and delivery 2) Routine labs 3) Continuous EFM 4) Pain management upon request. Reviewed due to elevated BP unable to have warm water immersion or waterbirth. 5) BP elevated upon arrival, one severe range but decreased after repeat blood pressure. Asymptomatic. Preeclampsia labs. Recommend IV placement and patient consented 6) Dr. Arguello collaborative physician and notified of patient status, above assessment, and plan.
--- OUTSIDE RECORDS SUMMARY | 2025-03-15 23:46 | XMS RPT_ITS | CCD ---
Author Organization [facility] Care Team Providers Care 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 Name Role Phone Stew ARROYO, Maryann Harrell [...] STEW, MARYANN R Primary Care Unavailable DOMONIQUE NOEILL Attending Unavailable STEW, MARYANN ADITI Primary Care [...] Attending Unavailable PLOTTS, ANNIE Attending Unavailable Fei RAROYO, Dr. Whitlock Attending [facility] er Care Physician, No Primary Primary Care Provider Unavailable Chinyere Enamorado Attending Unavail able Care Physician, No Primary Primary Care Unava ilable Allergies Allergy Classification Reported Allergen(s) Allergy Type Date of Onset Reaction(s) Facility (20 sources) Azithromycin; Translations: [AZITHROMYCIN] Drug Allergy 0 Hives, Diarrhea, GI Upset [facility] (5 sources) Pertussis Vaccines; Translations: [PERTUSSIS VACCINES] Propensity to adverse reactions 2 Hives [facility] (20 sources) Tetanus Vaccines And Toxoid; Translations: [TETANUS VACCINES AND TOXOID] Propensity to adverse reactions 0 [facility] Medications Current Medications Medication Drug Class(es) Dates Sig (Normalized) Sig (Original) 21 day ethinyl estradiol 0.418423 mg/hr / etonogestrel 0.005 mg/hr vaginal system [...] 07/31/2024 07/31/2024 Discontinued (Discontinued by Patient) levonorgestrel 0.609449 mg/hr intrauterine system (1 source) Progestin, Progestin-containin [...] of ; Translations: [32 weeks gestation of ([facility])] Onset: 01-14-2025 Episodic Residual codes; unclassified (1 source) 28 weeks gestation of ; Translations: [28 weeks gestation of ([facility])] Onset: 12-17-2024 Episodic Unclassified (2 [...] Facil ity Examination level ultrasound on 03-14-2025 [facility] Radiology Study observation (narrative) [facility] URINE OB DIP B/Oon Glucose Ql (U) Negative Neg mg/dL [facility] Interpretation and review of laboratory results Normal [facility] Protein.monoclonal (U) [Mass/Vol] trace Neg mg/dL [facility] OB Triage Physician Noteon 0 03-13-2025 OB Triage Physician Note [facility] Medical Records Department [address] [place] [address] OB Triage Physician Note 03/13/25 0152 MR#: [id number] Acct: [id number] Name: YANET BANKS Rep #: [id number] : 1995 29 From: Chinyere Enamorado MD PCP: Care Physician,No Primary Status:REG CLI Y Location: [id number] HPI - General General Date of Admission: [...] Enamorado MD; No Primary Care Physician Signed [facility] 03-12-[address] [facility] Telephone (OBGYWM) YANET BANKS ([id number]) 1995 F Date Time Provider Department 03/12/25 [...] aware that MAGDIEL and CP are not environment coordinator today. CORA notified. Updated HANDP faxed to [...] Status:Closed by NICA LAW on 03/12/25 Normal [facility] URINE OB DIP B/Oon Glucose Ql (U) Negative Neg mg/dL [facility] Interpretation and review of laboratory results Normal [facility] Protein.monoclonal (U) [Mass/Vol] Negative Neg mg/dL [facility] CNPNon 03-07-2025 CNPN Telephone (OBGYWM) YANET BANKS ([id number]) 1995 F Date Time Provider Department 03/07/25 ANNIE THAKUR During your visit today, we recorded the following information about you: Erasto Brunson LPN 03/07/2025 3:28 PM Signed Faxed signed water consent to [facility] 03/07/2025. Erasto Brunson LPN Allergies As [...] Status:Closed by ERASTO BRUNSON on 03/07/25 Normal [facility] URINE OB DIP B/Oon 5 Glucose Ql (U) Negative Neg mg/dL [facility] Interpretation and review of laboratory results Normal [facility] Protein.monoclonal (U) [Mass/Vol] Negative Neg mg/dL [facility] URINE OB DIP B/Oon 5 Glucose Ql (U) Negative Neg mg/dL [facility] Interpretation and review of laboratory results Normal [facility] Protein.monoclonal (U) [Mass/Vol] Negative Neg mg/dL [facility] URINE OB DIP B/Oon 5 Glucose Ql (U) Negative Neg mg/dL [facility] Interpretation and review of laboratory results Normal [facility] Protein.monoclonal (U) [Mass/Vol] Negative Neg mg/dL [facility] ROUTINE, GROUP B ST REPTOCOCCUS BY PCRon 02-11-2025 ROUTINE, GROUP B STREPTOCOCCUS BY PCR Not detected Normal [facility] Comment on above: Performed By: #### L [id number] #### [facility] CLIA [id number] [address] [place] [address] [place] URINE OB DIP B/Oon Glucose Ql (U) Negative Neg mg/dL [facility] Protein.monoclonal (U) [Mass/Vol] Negative Neg mg/dL [facility] CNPNon 01-28-2025 CNPN Telephone (OBGYWM) YANET BANKS ([id number]) 1995 F Date Time Provider Department 01/28/25 [...] Status:Closed by LOLIS ANDERS on 01/29/25 Normal [facility] 01-01-[address] [facility] Telephone ([id number]) YANET BANKS ([id number]) 1995 F Date Time Provider Department 01/01/25 NICA URIARTE [id number] During your visit today, we recorded the [...] MA - Fully Assessed Reason for Visit: Blood Tester Fowl - Other [3602] Cmt: PRAF Prescriptions as of 01/01/2025 - PNV no.95/ferrous fum/folic ac ( ORAL) Take 8 tablets by mouth once daily. Problem List As Of Date 01/01/2025 Noted Resolved Oligomenorrhea [N91.5] 12/08/2009 12/31/2024 Dysmenorrhea [N94.6] 12/08/2009 08/28/2024 Encounter for supervision of normal i*07/31/2024 Multiparity [Z64.1] 07/31/2024 Encounter Status:Closed by NICA URIARTE on 01/01/25 Normal [facility] CBC W Auto Differential pane l (Bld)on 12-17-2024 Basophils (Bld) [#/Vol] 10*3/uL Normal <0.11 [facility] Comment on above: Order Comment: Speci men Type: FLUID SPECIMEN Ordering Facility: [facility] Address: [address] [place] [address] Performed By: #### L [id number] #### [facility] CLIA [id number] [address] [place] [address] [place] Basophils/100 WBC (Bld) 0.3 % Normal [facility] Comment on above: Order Comment: Speci men Type: FLUID SPECIMEN Ordering Facility: [facility] Address: [address] [place] [address] Performed By: #### L [id number] #### [facility] CLIA [id number] [address] [place] [address] [place] Differential cell count method Nom (Bld) Auto Normal [facility] Comment on above: Order Comment: Speci men Type: FLUID SPECIMEN Ordering Facility: [facility] Address: [address] [place] [address] Performed By: #### L [id number] #### [facility] CLIA [id number] [address] [place] [address] [place] Eosinophils (Bld) [#/Vol] 0.11 10*3/uL Normal <0.46 [facility] Comment on above: Order Comment: Speci men Type: FLUID SPECIMEN Ordering Facility: [facility] Address: [address] [place] [address] Performed By: #### L [id number] #### [facility] CLIA [id number] [address] [place] [address] [place] Eosinophils/100 WBC (Bld) 1.5 % Normal [facility] Comment on above: Order Comment: Speci men Type: FLUID SPECIMEN Ordering Facility: [facility] Address: [address] [place] [address] Performed By: #### L [id number] #### [facility] CLIA [id number] [address] [place] [address] [place] Erythrocyte distribution width (RBC) [Ratio] 12.7 % Normal 11.5-15.0 [facility] Comment on above: Order Comment: Speci men Type: FLUID SPECIMEN Ordering Facility: [facility] Address: [address] [place] [address] Performed By: #### L [id number] #### [facility] CLIA [id number] [address] [place] [address] [place] Hematocrit (Bld) [Volume fraction] 37.0 % Normal 36.0-46.0 [facility] Comment on above: Order Comment: Speci men Type: FLUID SPECIMEN Ordering Facility: [facility] Address: [address] [place] [address] Performed By: #### L [id number] #### [facility] CLIA [id number] [address] [place] [address] [place] Hemoglobin (Bld) [Mass/Vol] 13.2 g/dL Normal 11.5-15.5 [facility] Comment on above: Order Comment: Speci men Type: FLUID SPECIMEN Ordering Facility: [facility] Address: [address] [place] [address] Performed By: #### L [id number] #### [facility] CLIA [id number] [address] [place] [address] [place] Immature granulocytes (Bld) [#/Vol] 0.05 10*3/uL Normal <0.10 [facility] Comment on above: Order Comment: Speci men Type: FLUID SPECIMEN Ordering Facility: [facility] Address: [address] [place] [address] Performed By: #### L [id number] #### [facility] CLIA [id number] [address] [place] [address] [place] Immature granulocytes/100 WBC (Bld) 0.7 % Normal [facility] Comment on above: Order Comment: Speci men Type: FLUID SPECIMEN Ordering Facility: [facility] Address: [address] [place] [address] Performed By: #### L [id number] #### [facility] CLIA [id number] [address] [place] [address] [place] Lymphocytes (Bld) [#/Vol] 1.56 10*3/uL Normal 1.00-4.00 [facility] Comment on above: Order Comment: Speci men Type: FLUID SPECIMEN Ordering Facility: [facility] Address: [address] [place] [address] Performed By: #### L [id number] #### [facility] CLIA [id number] [address] [place] [address] [place] Lymphocytes/100 WBC (Bld) 21.3 % Normal [facility] Comment on above: Order Comment: Speci men Type: FLUID SPECIMEN Ordering Facility: [facility] Address: [address] [place] [address] Performed By: #### L [id number] #### [facility] CLIA [id number] [address] [place] [address] [place] MCH (RBC) [Entitic mass] 32.8 pg Normal 26.0-34.0 [facility] Comment on above: Order Comment: Speci men Type: FLUID SPECIMEN Ordering Facility: [facility] Address: [address] [place] [address] Performed By: #### L [id number] #### [facility] CLIA [id number] [address] [place] [address] [place] MCHC (RBC) [Mass/Vol] 35.7 g/dL Normal 30.5-36.0 [facility] Comment on above: Order Comment: Speci men Type: FLUID SPECIMEN Ordering Facility: [facility] Address: [address] [place] [address] Performed By: #### L [id number] #### [facility] CLIA [id number] [address] [place] [address] [place] MCV (RBC) [Entitic vol] 92.0 fL Normal 80.0-100.0 [facility] Comment on above: Order Comment: Speci men Type: FLUID SPECIMEN Ordering Facility: [facility] Address: [address] [place] [address] Performed By: #### L [id number] #### [facility] CLIA [id number] [address] [place] [address] [place] Monocytes (Bld) [#/Vol] 0.54 10*3/uL Normal <0.87 [facility] Comment on above: Order Comment: Speci men Type: FLUID SPECIMEN Ordering Facility: [facility] Address: [address] [place] [address] Performed By: #### L [id number] #### [facility] CLIA [id number] [address] [place] [address] [place] Monocytes/100 WBC (Bld) 7.4 % Normal [facility] Comment on above: Order Comment: Speci men Type: FLUID SPECIMEN Ordering Facility: [facility] Address: [address] [place] [address] Performed By: #### L [id number] #### [facility] CLIA [id number] [address] [place] [address] [place] Neutrophils (Bld) [#/Vol] 5.06 10*3/uL Normal 1.45-7.50 [facility] Comment on above: Order Comment: Speci men Type: FLUID SPECIMEN Ordering Facility: [facility] Address: [address] [place] [address] Performed By: #### L [id number] #### [facility] CLIA [id number] [address] [place] [address] [place] Neutrophils/100 WBC (Bld) 68.8 % Normal [facility] Comment on above: Order Comment: Speci men Type: FLUID SPECIMEN Ordering Facility: [facility] Address: [address] [place] [address] Performed By: #### L [id number] #### [facility] CLIA [id number] [address] [place] [address] [place] Nucleated RBC (Bld) [#/Vol] 10*3/uL Normal <0.01 [facility] Comment on above: Order Comment: Speci men Type: FLUID SPECIMEN Ordering Facility: [facility] Address: [address] [place] [address] Performed By: #### L [id number] #### [facility] CLIA [id number] [address] [place] [address] [place] Nucleated RBC/100 WBC (Bld) [Ratio] 0.0 /100 WBC Normal [facility] Comment on above: Order Comment: Speci men Type: FLUID SPECIMEN Ordering Facility: [facility] Address: [address] [place] [address] Performed By: #### L [id number] #### [facility] CLIA [id number] [address] [place] [address] [place] Platelet mean volume (Bld) [Entitic vol] 9.0 fL Normal 9.0-12.7 [facility] Comment on above: Order Comment: Speci men Type: FLUID SPECIMEN Ordering Facility: [facility] Address: [address] [place] [address] Performed By: #### L [id number] #### [facility] CLIA [id number] [address] [place] [address] [place] Platelets (Bld) [#/Vol] 252 10*3/uL Normal 150-400 [facility] Comment on above: Order Comment: Speci men Type: FLUID SPECIMEN Ordering Facility: [facility] Address: [address] [place] [address] Performed By: #### L [id number] #### [facility] CLIA [id number] [address] [place] [address] [place] RBC (Bld) [#/Vol] 4.02 10*6/uL Normal 3.90-5.20 [facility] Comment on above: Order Comment: Speci men Type: FLUID SPECIMEN Ordering Facility: [facility] Address: [address] [place] [address] Performed By: #### L [id number] #### [facility] CLIA [id number] [address] [place] [address] [place] WBC (Bld) [#/Vol] 7.34 10*3/uL Normal 3.70-11.00 [facility] Comment on above: Order Comment: Speci men Type: FLUID SPECIMEN Ordering Facility: [facility] Address: [address] [place] [address] Performed By: #### L [id number] #### [facility] CLIA [id number] [address] [place] [address] [place] GESTATIONAL GLUCOSE SCREEN, 1-HOUR, 50 GRAM, NON-FASTINGon 12-17-2024 Glucose [Mass/Vol] 105 mg/dL Normal 74-134 [facility] Comment on above: Order Comment: Speci men Type: FLUID SPECIMEN Ordering Facility: [facility] Address: [address] [place] [address] Result Comment: [facility] Congress of Obstetricians and Gynecologists (Kasi/Michael) guidelines state a gestational diabetes mellitus positive screen is made, in women not previously diagnosed with overt diabetes, when the 1 hr plasma glucose level is equal to or above 140 mg/dL. The [facility] Continuous Pillowcase Cutter and [facility] Bailey recommends a 135 mg/dL cutoff. Performed By: #### L [id number] #### [facility] CLIA [id number] [address] [place] [address] [place] Reagin and Treponema pallidu m IgG and IgM [Interp]on 12-17-2024 T. pallidum IgG+IgM IA Ql (S) Non-Reactive Normal Nonreactive [facility] Comment on above: Order Comment: Cydney tang Type: BLOOD SPECIMEN Ordering Facility: [facility] Address: [address] [place] [address] Performed By: #### T SPN #### [facility] CLIA [id number] [address] [place] [address] [place] Reagin+T pallidum IgG+IgM Se rPl-Impon 12-17-2024 Reagin and Treponema pallidum IgG and IgM [Interp] Cannot exclude recent Treponemal infection if specimen collected within 7-10 days after appearance of suspect lesions or 2-3 weeks after an exposure. Clinical correlation is required. Normal [facility] Comment on above: Order Comment: Cydney tang Type: BLOOD SPECIMEN Ordering Facility: [facility] Address: [address] [place] [address] Performed By: #### T SPN #### [facility] CLIA [id number] [address] [place] [address] [place] CNPShama 10-24-2024 CNPN Telephone ([id number]) YANET BANKS ([id number]) 1995 F Date Time Provider Department 10/24/24 NICA URIARTE [id number] During your visit today, we recorded the [...] MA - Fully Assessed Reason for Visit: Blood Tester Fowl - Other [3602] Cmt: PRAF Prescriptions as of 10/24/2024 - PNV no.95/ferrous fum/folic ac ( ORAL) Take 8 tablets by mouth once daily. Problem List As Of Date 10/24/2024 Noted Resolved Oligomenorrhea [N91.5] 12/08/2009 Dysmenorrhea [N94.6] 12/08/2009 08/28/2024 Encounter for supervision of normal i*07/31/2024 Multiparity [Z64.1] 07/31/2024 Encounter Status:Closed by NICA URIARTE on 10/24/24 Normal [facility] Examination level ultrasound on 10-23-2024 Indication [...] 12 oz EFW by: Hadlock (HC-AC-FL) Extended Seismograph Supervisor 6.5 mm CM 3.9 mm 13% Nicolaides [...] normal LVOT view: normal 3-vessel view: normal 4-vjrjgb-vhvrplb view: normal Heart / Thorax Situs: situs [...] Read By: Geri Wilson M.D. MATERNAL MEDICINE [facility] Radiology Study observation (narrative) [facility] Examination level ultrasound on 08-28-2024 Indication First trimester anatomic survey Impression REMOTE READ The patient is referred for a first trimester anatomy scan including nuchal translucency measurement as clinically indicated. - Single, live, intrauterine . - Hulett rump length measurement is consistent with the [...] view: suboptimal 4-chamber view with color: suboptimal 6-xgbiyk-almsber view: suboptimal Abdominal cord insertion: normal Stomach: [...] Read By: Geri Wilson M.D. MATERNAL MEDICINE [facility] Radiology Study observation (narrative) [facility] CNPShama 08-01-2024 CNPN Telephone (OGFVWE) YANET BANKS ([id number]) 1995 F Date Time Provider Department 08/01/24 NURSE LEAN SENSEI FRVW [place] OGFVWE During your visit today, we recorded [...] Status:Closed by SHI MEDLEY on 08/01/24 Normal [facility] Bacteria Ur Culton Bacteria identified Cx Nom (U) CULTURE, URINE: No growth (<1,000 CFU/ml) Normal [facility] Comment on above: Performed By: #### L [id number] #### [facility] CLIA [id number] [address] [place] [address] [place] C. trachomatis+N. gonorrhoea e DNA MICHAEL+probe Ql (Unsp spec)on 07-31-2024 C. trachomatis rRNA MICHAEL+probe Ql (Unsp spec) Not detected Normal Not detected [facility] Comment on above: Order Comment: Speci men Type: FLUID SPECIMEN Ordering Facility: [facility] Address: [address] [place] [address] Performed By: #### L [id number] #### [facility] CLIA [id number] [address] [place] [address] [place] N. gonorrhoeae rRNA MICHAEL+probe Ql (Unsp spec) Not detected Normal Not detected [facility] Comment on above: Order Comment: Speci men Type: FLUID SPECIMEN Ordering Facility: [facility] Address: [address] [place] [address] Performed By: #### L [id number] #### [facility] CLIA [id number] [address] [place] [address] [place] CBC W Auto Differential pane l (Bld)on 07-31-2024 Basophils (Bld) [#/Vol] 10*3/uL Normal <0.11 [facility] Comment on above: Order Comment: Speci men Type: BLOOD SPECIMEN Ordering Facility: [facility] Address: [address] [place] [address] Performed By: #### 5 7021-8 #### [facility] CLIA [id number] [address] [place] [address] [place] Basophils/100 WBC (Bld) 0.3 % Normal [facility] Comment on above: Order Comment: Speci men Type: BLOOD SPECIMEN Ordering Facility: [facility] Address: [address] [place] [address] Performed By: #### 5 7021-8 #### [facility] CLIA [id number] [address] [place] [address] [place] Differential cell count method Nom (Bld) Auto Normal [facility] Comment on above: Order Comment: Speci men Type: BLOOD SPECIMEN Ordering Facility: [facility] Address: [address] [place] [address] Performed By: #### 5 7021-8 #### [facility] CLIA [id number] [address] [place] [address] [place] Eosinophils (Bld) [#/Vol] 0.11 10*3/uL Normal <0.46 [facility] Comment on above: Order Comment: Speci men Type: BLOOD SPECIMEN Ordering Facility: [facility] Address: [address] [place] [address] Performed By: #### 5 7021-8 #### [facility] CLIA [id number] [address] [place] [address] [place] Eosinophils/100 WBC (Bld) 1.4 % Normal [facility] Comment on above: Order Comment: Speci men Type: BLOOD SPECIMEN Ordering Facility: [facility] Address: [address] [place] [address] Performed By: #### 5 7021-8 #### [facility] CLIA [id number] [address] [place] [address] [place] Erythrocyte distribution width (RBC) [Ratio] 11.8 % Normal 11.5-15.0 [facility] Comment on above: Order Comment: Speci men Type: BLOOD SPECIMEN Ordering Facility: [facility] Address: [address] [place] [address] Performed By: #### 5 7021-8 #### [facility] CLIA [id number] [address] [place] [address] [place] Hematocrit (Bld) [Volume fraction] 40.5 % Normal 36.0-46.0 [facility] Comment on above: Order Comment: Speci men Type: BLOOD SPECIMEN Ordering Facility: [facility] Address: [address] [place] [address] Performed By: #### 5 7021-8 #### [facility] CLIA [id number] [address] [place] [address] [place] Hemoglobin (Bld) [Mass/Vol] 14.2 g/dL Normal 11.5-15.5 [facility] Comment on above: Order Comment: Speci men Type: BLOOD SPECIMEN Ordering Facility: [facility] Address: [address] [place] [address] Performed By: #### 5 7021-8 #### [facility] CLIA [id number] [address] [place] [address] [place] Immature granulocytes (Bld) [#/Vol] 0.03 10*3/uL Normal <0.10 [facility] Comment on above: Order Comment: Speci men Type: BLOOD SPECIMEN Ordering Facility: [facility] Address: [address] [place], [place] [address] Performed By: #### 5 7021-8 #### [facility] CLIA [id number] [address] [place] [address] [place] Immature granulocytes/100 WBC (Bld) 0.4 % Normal [facility] Comment on above: Order Comment: Speci men Type: BLOOD SPECIMEN Ordering Facility: [facility] Address: [address] [place] [address] Performed By: #### 5 7021-8 #### [facility] CLIA [id number] [address] [place] [address] [place] Lymphocytes (Bld) [#/Vol] 2.09 10*3/uL Normal 1.00-4.00 [facility] Comment on above: Order Comment: Speci men Type: BLOOD SPECIMEN Ordering Facility: [facility] Address: [address] [place] [address] Performed By: #### 5 7021-8 #### [facility] CLIA [id number] [address] [place] [address] [place] Lymphocytes/100 WBC (Bld) 26.5 % Normal [facility] Comment on above: Order Comment: Speci men Type: BLOOD SPECIMEN Ordering Facility: [facility] Address: [address] [place] [address] Performed By: #### 5 7021-8 #### [facility] CLIA [id number] [address] [place] [address] [place] MCH (RBC) [Entitic mass] 31.7 pg Normal 26.0-34.0 [facility] Comment on above: Order Comment: Speci men Type: BLOOD SPECIMEN Ordering Facility: [facility] Address: [address] [place] [address] Performed By: #### 5 7021-8 #### [facility] CLIA [id number] [address] [place] [address] [place] MCHC (RBC) [Mass/Vol] 35.1 g/dL Normal 30.5-36.0 [facility] Comment on above: Order Comment: Speci men Type: BLOOD SPECIMEN Ordering Facility: [facility] Address: [address] [place] [address] Performed By: #### 5 7021-8 #### [facility] CLIA [id number] [address] [place] [address] [place] MCV (RBC) [Entitic vol] 90.4 fL Normal 80.0-100.0 [facility] Comment on above: Order Comment: Speci men Type: BLOOD SPECIMEN Ordering Facility: [facility] Address: [address] [place] [address] Performed By: #### 5 7021-8 #### [facility] CLIA [id number] [address] [place] [address] [place] Monocytes (Bld) [#/Vol] 0.48 10*3/uL Normal <0.87 [facility] Comment on above: Order Comment: Speci men Type: BLOOD SPECIMEN Ordering Facility: [facility] Address: [address] [place] [address] Performed By: #### 5 7021-8 #### [facility] CLIA [id number] [address] [place] [address] [place] Monocytes/100 WBC (Bld) 6.1 % Normal [facility] Comment on above: Order Comment: Speci men Type: BLOOD SPECIMEN Ordering Facility: [facility] Address: [address] [place] [address] Performed By: #### 5 7021-8 #### [facility] CLIA [id number] [address] [place] [address] [place] Neutrophils (Bld) [#/Vol] 5.16 10*3/uL Normal 1.45-7.50 [facility] Comment on above: Order Comment: Speci men Type: BLOOD SPECIMEN Ordering Facility: [facility] Address: [address] [place] [address] Performed By: #### 5 7021-8 #### [facility] CLIA [id number] [address] [place] [address] [place] Neutrophils/100 WBC (Bld) 65.3 % Normal [facility] Comment on above: Order Comment: Speci men Type: BLOOD SPECIMEN Ordering Facility: [facility] Address: [address] [place] [address] Performed By: #### 5 7021-8 #### [facility] CLIA [id number] [address] [place] [address] [place] Nucleated RBC (Bld) [#/Vol] 10*3/uL Normal <0.01 [facility] Comment on above: Order Comment: Speci men Type: BLOOD SPECIMEN Ordering Facility: [facility] Address: [address] [place] [address] Performed By: #### 5 7021-8 #### [facility] CLIA [id number] [address] [place] [address] [place] Nucleated RBC/100 WBC (Bld) [Ratio] 0.0 /100 WBC Normal [facility] Comment on above: Order Comment: Speci men Type: BLOOD SPECIMEN Ordering Facility: [facility] Address: [address] [place] [address] Performed By: #### 5 7021-8 #### [facility] CLIA [id number] [address] [place] [address] [place] Platelet mean volume (Bld) [Entitic vol] 9.0 fL Normal 9.0-12.7 [facility] Comment on above: Order Comment: Speci men Type: BLOOD SPECIMEN Ordering Facility: [facility] Address: [address] [place], [place] [address] Performed By: #### 5 7021-8 #### [facility] CLIA [id number] [address] [place] [address] [place] Platelets (Bld) [#/Vol] 312 10*3/uL Normal 150-400 [facility] Comment on above: Order Comment: Speci men Type: BLOOD SPECIMEN Ordering Facility: [facility] Address: [address] [place] [address] Performed By: #### 5 7021-8 #### [facility] CLIA [id number] [address] [place] [address] [place] RBC (Bld) [#/Vol] 4.48 10*6/uL Normal 3.90-5.20 [facility] Comment on above: Order Comment: Speci men Type: BLOOD SPECIMEN Ordering Facility: [facility] Address: [address] [place] [address] Performed By: #### 5 7021-8 #### [facility] CLIA [id number] [address] [place] [address] [place] WBC (Bld) [#/Vol] 7.89 10*3/uL Normal 3.70-11.00 [facility] Comment on above: Order Comment: Speci men Type: BLOOD SPECIMEN Ordering Facility: [facility] Address: [address] [place] [address] Performed By: #### 5 7021-8 #### [facility] CLIA [id number] [address] [place] [address] [place] HBV surface Ag Ser Qlon 07-17 HBV surface Ag Ql (S) Negative Normal Negative [facility] Comment on above: Order Comment: Speci men Type: BLOOD SPECIMEN Ordering Facility: [facility] Address: [address] [place] [address] Performed By: #### T SPN #### [facility] CLIA [id number] [address] [place] [address] [place] HCV Ab Ser Qlon 07-31-2024 HCV Ab Ql (S) Negative Normal Negative [facility] Comment on above: Order Comment: Speci men Type: BLOOD SPECIMEN Ordering Facility: [facility] Address: [address] [place] [address] Result Comment: The result suggests no evidence of active infection with Hepatitis C virus. Should recent infection be suspected, repeat testing may be considered 4-6 weeks after this draw. Performed By: #### T SPN #### [facility] CLIA [id number] [address] [place] [address] [place] HIGH RISK HUMAN PAPILLOMA RHINA (HPV), PCR FOR DETECTION AND GENOTYPINGon 07-31-2024 HPV 16 Ag Ql (Unsp spec) Not detected Normal Not detected [facility] Comment on above: Order Comment: Speci men Type: FLUID SPECIMEN Ordering Facility: [facility] Address: [address] [place] [address] Performed By: #### L [id number] #### [facility] CLIA [id number] [address] [place] [address] [place] HPV 18 Ag Ql (Unsp spec) Not detected Normal Not detected [facility] Comment on above: Order Comment: Speci men Type: FLUID SPECIMEN Ordering Facility: [facility] Address: [address] [place] [address] Performed By: #### L [id number] #### [facility] CLIA [id number] [address] [place] [address] [place] HPV 31+33+35+39+45+51+5 2+56+58+59+66+68 DNA MICHAEL+probe Ql (Cvx) Not detected Normal Not detected [facility] Comment on above: Order Comment: Speci men Type: FLUID SPECIMEN Ordering Facility: [facility] Address: [address] [place] [address] Result Comment: High Risk HPV Other Type includes HPV types 31, 33, 35, 39, 45, 51, 52, 56, 58, 59, 66 and 68. Performed By: #### L [id number] #### [facility] CLIA [id number] [address] [place] [address] [place] HIV 1+2 Ab IA Qlon 5 HIV 1 and 2 Ab IA.rapid Nom (S/P/Bld) Normal [facility] Comment on above: Order Comment: Speci men Type: BLOOD SPECIMEN Ordering Facility: [facility] Address: [address] [place] [address] Result Comment: Test not indicated. Performed By: #### T SPN #### [facility] CLIA [id number] [address] [place] [address] [place] HIV 1+2 Ab+HIV1 p24 Ag IA Ql Non-Reactive Normal Nonreactive [facility] Comment on above: Order Comment: Speci men Type: BLOOD SPECIMEN Ordering Facility: [facility] Address: [address] [place] [address] Performed By: #### T SPN #### [facility] CLIA [id number] [address] [place] [address] [place] HIV immunoassay testing algorithm interpretation (S/P/Bld) [Interp] Normal [facility] Comment on above: Order Comment: Speci men Type: BLOOD SPECIMEN Ordering Facility: [facility] Address: [address] [place] [address] Result Comment: No e vidence of HIV-1 or HIV-2 infection. Should recent infection be suspected, repeat testing may be considered 2-3 weeks after this draw. [place] Rev. Code 3701.243(E): This information has been [...] Performed By: #### T SPN #### [facility] [place] [id number] [address] [place] [address] [place] HbA1c (Bld)on 07-31-2024 Average glucose Estimated from glycated hemoglobin (Bld) [Mass/Vol] 82 mg/dL Normal [facility] Comment on above: Order Comment: Speci men Type: FLUID SPECIMEN Ordering Facility: [facility] Address: [address] [place] [address] Result Comment: eAG: (Estimated average glucose) is a calculated value from HgbA1c and is floor representative of the average blood glucose level in the last 2-3 month period. Performed By: #### L [id number] #### [facility] CLIA [id number] [address] [place] [address] [place] HbA1c (Bld) [Mass fraction] 4.5 % Normal 4.3-5.6 [facility] Comment on above: Order Comment: Speci men Type: FLUID SPECIMEN Ordering Facility: [facility] Address: [address] [place] [address] Result Comment: Amer [place] Diabetes Association guidelines indicate that patients with HgbA1c in the range 5.7-6.4% are at increased risk for development of diabetes, and intervention by lifestyle modification may be beneficial. HgbA1c greater or equal to 6.5% is considered diagnostic of diabetes. Performed By: #### L [id number] #### [facility] CLIA [id number] [address] [place] [address] [place] PAP TESTon 07-31-2024 ADEQUACY Satisfactory for interpretation. Normal [facility] Comment on above: Order Comment: Speci men Type: FLUID SPECIMEN Ordering Facility: [facility] Address: [address] [place] [address] Performed By: #### L [id number] #### [facility] CLIA [id number] [address] [place] [address] [place] CASE REPORT Normal [facility] Comment on above: Order Comment: Speci men Type: FLUID SPECIMEN Ordering Facility: [facility] Address: [address] [place] [address] Result Comment: Gyne cologic Cytology Report Case: [id number] Authorizing Provider: Annie Thakur APRN.CNM Collected: 07/31/2024 09:53 AM Ordering Location: OB/Gynecology Received: 07/31/2024 12:21 PM First Screen: Nica Arguello, CT, ASCP Specimen: Pap Test, ThinPrep, Cervix Performed By: #### L [id number] #### [facility] CLIA [id number] [address] [place] [address] [place] CLINICAL HISTORY, CYTOLOGY, GREIGE GOODS INSPECTOR Routine Exam Normal [facility] Comment on above: Order Comment: Speci men Type: FLUID SPECIMEN Ordering Facility: [facility] Address: [address] [place] [address] Performed By: #### L [id number] #### [facility] CLIA [id number] [address] [place] [address] [place] FINAL PERFORMING LAB Normal [facility] Comment on above: Order Comment: Speci men Type: FLUID SPECIMEN Ordering Facility: [facility] Address: [address] [place] [address] Result Comment: Tech nical component, nuclear medicine supervisor screening performed at [facility], [address] [place] [address] [place] [address] CLIA# [id number] Diagnostic interpretation performed at [facility], [address] [place], [place] [id number] CLIA# [id number] Returned Materials Inspector: Timi lFoyd M.D. Performed By: #### L [id number] #### [facility] CLIA [id number] [address] [place] [address] [place] INTERPRETATION, CYTOLOGY, GREIGE GOODS INSPECTOR Normal [facility] Comment on above: Order Comment: Speci men Type: FLUID SPECIMEN Ordering Facility: [facility] Address: [address] [place] [address] Result Comment: Nega tive for intraepithelial lesion or malignancy. Performed By: #### L [id number] #### [facility] CLIA [id number] [address] [place] [address] [place] LMP 06/01/2024 Normal [facility] Comment on above: Order Comment: Speci men Type: FLUID SPECIMEN Ordering Facility: [facility] Address: [address] [place] [address] Performed By: #### L [id number] #### [facility] CLIA [id number] [address] [place] [address] [place] PAP DISCLAIMER COMMENT The Pap Smear is a screening test for cervical cancer. False negative results occur with all screening tests, emphasizing the need for rescreening at recommended intervals, and clinical correlation. Normal [facility] Comment on above: Order Comment: Speci men Type: FLUID SPECIMEN Ordering Facility: [facility] Address: [address] [place] [address] Performed By: #### L [id number] #### [facility] CLIA [id number] [address] [place] [address] [place] PAP SINKER WINDER COMMENT This specimen has been analyzed by the ThinPrep Imaging System, an automated imaging and review system, which assists the laboratory in evaluating cells on ThinPrep Pap tests. Following automated imaging, selected maki from every slide are reviewed by a nuclear medicine supervisor. Normal [facility] Comment on above: Order Comment: Speci men Type: FLUID SPECIMEN Ordering Facility: [facility] Address: [address] [place] [address] Performed By: #### L [id number] #### [facility] CLIA [id number] [address] [place] [address] [place] POC BINDERY OPERATOR ULTRASOUNDon 07-31-19 25 Indication Viability; confirm cardiac [...] Read By: Annie Thakur CNM MATERNAL MEDICINE [facility] Radiology Study observation (narrative) [facility] RUBELLA IGG ANTIBODYon 07-31 RUBELLA IGG AB, QUAL Positive Normal Positive [facility] Comment on above: Order Comment: Speci men Type: FLUID SPECIMEN Ordering Facility: [facility] Address: [address] [place] [address] Result Comment: The result suggests recent or past exposure to Rubella virus or history of Rubella vaccination. Positive result may also be seen due to presence of passively-transferred antibodies. Please correlate with patient's history. Performed By: #### L [id number] #### [facility] CLIA [id number] [address] [place] [address] [place] Reagin and Treponema pallidu m IgG and IgM [Interp]on 07-31-2024 T. pallidum IgG+IgM IA Ql (S) Non-Reactive Normal Nonreactive [facility] Comment on above: Order Comment: Speci men Type: BLOOD SPECIMEN Ordering Facility: [facility] Address: [address] [place] [address] Performed By: #### T SPN #### [facility] CLIA [id number] [address] [place] [address] [place] Reagin+T pallidum IgG+IgM Se rPl-Impon 07-31-2024 Reagin and Treponema pallidum IgG and IgM [Interp] Cannot exclude recent Treponemal infection if specimen collected within 7-10 days after appearance of suspect lesions or 2-3 weeks after an exposure. Clinical correlation is required. Normal [facility] Comment on above: Order Comment: Speci men Type: BLOOD SPECIMEN Ordering Facility: [facility] Address: [address] [place] [address] Performed By: #### T SPN #### [facility] CLIA [id number] [address] [place] [address] [place] TYPE + SCREEN PRENATALon ABO O Normal [facility] Comment on above: Order Comment: Speci men Type: BLOOD SPECIMEN Ordering Facility: [facility] Address: [address] [place] [address] Performed By: #### T SPN #### [facility] CLIA [id number] [address] [place] [address] [place] Rh Nom (Bld) Positive Normal [facility] Comment on above: Order Comment: Speci men Type: BLOOD SPECIMEN Ordering Facility: [facility] Address: [address] [place] [address] Performed By: #### T SPN #### [facility] CLIA [id number] [address] [place] [address] [place] TYPE AND SCREEN EXPIRATION 08/03/2024 23:59 Normal [facility] Comment on above: Order Comment: Speci men Type: BLOOD SPECIMEN Ordering Facility: [facility] Address: [address] [place] [address] Performed By: #### T SPN #### [facility] CLIA [id number] [address] [place] [address] [place] POCT URINE PREGNANCYon 10-24 HCG ( test) Ql (U) [facility] Comment on above: Order Comment: Relea se to patient->Immediate HCG ( test) Ql (U) Negative [facility] Comment on above: Order Comment: Relea se to patient->Immediate POCT RAPID STREP TESTon 07-17 EXPIRATION DATE: [facility] Comment on above: Order Comment: Relea se to patient->Immediate EXPIRATION DATE: 06/06/2024 [facility] Comment on above: Order Comment: Relea se to patient->Immediate LOT NUMBER [facility] Comment on above: Order Comment: Relea se to patient->Immediate LOT NUMBER [id number] [facility] Comment on above: Order Comment: Relea se to patient->Immediate S. pyogenes Ag IA Ql (Unsp spec) Negative [facility] Comment on above: Order Comment: Relea se to patient->Immediate S. pyogenes Ag IA Ql (Unsp spec) [facility] Comment on above: Order Comment: Relea se to patient->Immediate POCT URINE PREGNANCYon 01-16 EXPIRATION DATE: [facility] Comment on above: Order Comment: Relea se to patient->Immediate EXPIRATION DATE: 03/16/2024 [facility] Comment on above: Order Comment: Relea se to patient->Immediate HCG ( test) Ql (U) [facility] Comment on above: Order Comment: Oga se to patient->Immediate HCG ( test) Ql (U) Negative [facility] Comment on above: Order Comment: Jorge se to patient->Immediate LOT NUMBER [id number] [facility] Comment on above: Order Comment: Oga se to patient->Immediate LOT NUMBER [facility] Comment on above: Order Comment: Oga se to patient->Immediate MEDICAL STAFFon 11-19-2022 Emergency Room Tech Authentication Interface Message Text Reports good rest [...] Continue PP care support Teaching Discharge Normal [facility] PATIENT INSTRUCTIONSon 11-19 Emergency Room Tech Authentication Interface Message Text [facility] [phone] Pamper Yourself! Congratulations on the of your [...] at first be bright red. It will foreign exchange trader several days to dark red, to brown, to brownish yellow, and then to white. It should not have a bad or foul odor. Let your bleeding be your guide. If you are doing too much at home, your bleeding will increase and become bright red again. This will be your sign to take it easy. mothers often have no periods while time study technologist. Bottle feeding mothers can expect to have [...] you become (more content not included)... Normal [facility] NOTEon 11-18-2022 Emergency Room Tech Authentication Interface Message Text 11/18/22 2129 History Consult Breastfed Previous Child Yes Breastfed Previous Child for 3-6 months (pumped also) Breasts/Nipples Left Breast Soft;Reported by patient Right Breast Soft;Reported by patient Left Nipple Intact;Tender;Reporte d by patient Right Nipple Intact;Tender;Reporte d by patient Interventions General Interventions [id number];On cue feeding;Assist to awaken Nipple Management Assess [...] with and questions, concerns or assistance needed. [facility] Emergency Room Tech [employer] Interface Message Text 11/18/22 1220 History Consult Patient unavailable;Other/com ment (Pt sleeping) [facility] [employer] Interface Message Text 11/18/22 1032 History Consult Other/comment (Pt has visitors at this time and requests that come back later.) [facility] MEDICAL STAFFon 11-18-2022 Emergency Room Tech Authentication Interface Message Text Reports good rest [...] Stable Breast Continue PP care support Teaching [facility] H&Jose 11-17-2022 TNM Media Interface Message Text Attestation signed by Sharyn Waldron MD at 11/17/22 3518 I have reviewed this patient's H noted in triage. If persists, will need labs and L [facility] Obstetrics Admission Note Patient Name: Yanet Banks : 1995 11/17/2022 8:12 PM MEDICAL DECISION MAKING: records reviewed. Case discussed with Dr. Waldron, pizza hut team member Differential Diagnosis:n/a Interventions: NST Assessment/Plan 26 year [...] Final Glucose (more content not included)... Normal [facility] L&D DELIVERYon 11-17-2022 Emergency Room Tech Authentication Interface Message Text [facility] Spontaneous Vaginal Delivery Note Delivery Summary for Yanet Banks : 1995 Information for the patient's : Partha Banks [[id number]] Delivery Information: Date/Time of Delivery: 11/17/2022 8:50 PM By: Normal Spontaneous Vaginal Delivery Clinician: Dustin Benavides Maternal Information: Episiotomy: None Lacerations: None Repair suture: n/a Repair # of packets: 0 Blood loss (ml): 200 Information for the patient's : Partha Banks [[id number]] Information: Living?: Living Presentation/position : Cephalic Left [...] Hemostasis assured. Mom and baby well. Surgical Aides Teacher verified all counts correct. Dr. Waldron notified of . Electronically signed by: Dustin Benavides APRN, 11/17/2022 9:38 PM Normal [facility] PATIENT INSTRUCTIONSon 11-17 Emergency Room Tech Authentication Interface Message Text Thank you for choosing [facility]. It was a pleasure to see you today! Please call [phone] for all your office needs. Your opinion [...] improve your experience. We are available via [employer] messages and phone calls during regular business hours, but if there is an urgent need or you need to be seen after hours (in triage or the ER) please call our after hours number [phone]. You will be connected to the environment coordinator physician or as400 administrator. If a hospital visit is recommended please always go to [facility] located at [address] [place] [address]. Getting your test results is easier than ever! There are several ways you could receive results If you are a [employer] user this allows you rapid access to results. Most test results are released within 24 hours and may be viewable to you even before your provider reviews the results, or Clinical staff may call you with any abnormal results to discuss further your plan of care with the provider, or you could receive a letter for normal results. Attention [employer] Users! Want to send us a non urgent message, check your test results, request a medication refill, or schedule an appointment at your convenience? It's fast, safe, and easy. Just log in to [email or web address] and enter your user name and password. If you don't have a user name or password please ask one of our very qualified staff members and they will be happy to assist you in getting signed up. These messages are checked during office hours only. Please still call the office or physician environment coordinator with any urgent medical issues. For technical support, call If you had labs ordered today you can go to any [facility] lab and walk in with no appointment needed. If any imaging was ordered for you, central scheduling should call you within the week. If you do not hear from them, you can call them at [phone]. Any outpatient referrals with be taken care of by our staff. If you do not hear from their office within 1 week, please call our office at [phone] so we can check on the status for you. We all want to Thank you for choosing [facility]! Normal Provider Locations PATIENT INSTRUCTIONSon 11-09 Emergency Room Tech Authentication Interface Message Text Thank you for choosing [facility] [place]. It was a pleasure to see you today! Please call [phone] for all your office needs. Your opinion [...] improve your experience. We are available via [employer] messages and phone calls during regular business hours, but if there is an urgent need or you need to be seen after hours (in triage or the ER) please call our after hours number [phone]. You will be connected to the environment coordinator physician or as400 administrator. If a hospital visit is recommended please always go to [facility] located at [address] [facility] in [place]. Getting your test results is easier than ever! There are several ways you could receive results If you are a [employer] user this allows you rapid access to results. Most test results are released within 24 hours and may be viewable to you even before your provider reviews the results, or Clinical staff may call you with any abnormal results to discuss further your plan of care with the provider, or you could receive a letter for normal results. Attention [employer] Users! Want to send us a non urgent message, check your test results, request a medication refill, or schedule an appointment at your convenience? It's fast, safe, and easy. Just log in to [email or web address] and enter your user name and password. If you don't have a user name or password please ask one of our very qualified staff members and they will be happy to assist you in getting signed up. These messages are checked during office hours only. Please still call the office or physician environment coordinator with any urgent medical issues. For technical support, call If you had labs ordered today you can go to any [facility] lab and walk in with no appointment needed. If any imaging was ordered for you, central scheduling should call you within the week. If you do not hear from them, you can call them at [phone]. Any outpatient referrals with be taken care of by our staff. If you do not hear from their office within 1 week, please call our office at [phone] so we can check on the status for you. We all want to Thank you for choosing [facility]! Normal Provider Locations PROGRESS NOTESon 11-09-2022 Emergency Room Tech Authentication Interface Message Text Pt presents today for routine OB visit @ 38+1 +FM, no bleeding, no LOF Feeling well overall, ready to meet baby Hurt her back sitting for a long period of time Discussed comfort measures All set for FBBC She has no other questions or concerns S=D RTO 1 week Normal Provider Locations Emergency Room Tech Authentication Interface Message Text Patient Active Problem [...] NON REACTIVE Provider Locations PATIENT INSTRUCTIONSon 11-02 Emergency Room Tech Authentication Interface Message Text Thank you for choosing [facility] [place]. It was a pleasure to see you today! Please call [phone] for all your office needs. Your opinion [...] improve your experience. We are available via Seculert messages and phone calls during regular business hours, but if there is an urgent need or you need to be seen after hours (in triage or the ER) please call our after hours number [phone]. You will be connected to the environment coordinator physician or as400 administrator. If a hospital visit is recommended please always go to [facility] located at [address] [place] [address]. Getting your test results is easier than ever! There are several ways you could receive results If you are a [employer] user this allows you rapid access to results. Most test results are released within 24 hours and may be viewable to you even before your provider reviews the results, or Clinical staff may call you with any abnormal results to discuss further your plan of care with the provider, or you could receive a letter for normal results. Attention [employer] Users! Want to send us a non urgent message, check your test results, request a medication refill, or schedule an appointment at your convenience? It's fast, safe, and easy. Just log in to [email or web address] and enter your user name and password. If you don't have a user name or password please ask one of our very qualified staff members and they will be happy to assist you in getting signed up. These messages are checked during office hours only. Please still call the office or physician environment coordinator with any urgent medical issues. For technical support, call If you had labs ordered today you can go to any [facility] lab and walk in with no appointment needed. If any imaging was ordered for you, central scheduling should call you within the week. If you do not hear from them, you can call them at [phone]. Any outpatient referrals with be taken care of by our staff. If you do not hear from their office within 1 week, please call our office at [phone] so we can check on the status for you. We all want to Thank you for choosing [facility]! Normal Provider Locations PROGRESS NOTESon 11-02-2022 Emergency Room Tech Authentication Interface Message Text Patient Active Problem [...] uc/std/pl WNL Pertussis allergy Normal Provider Locations Emergency Room Tech Authentication Interface Message Text Pt presents today [...] ISOLATED Normal Provider Locations PATIENT INSTRUCTIONSon 10-26 Emergency Room Tech Authentication Interface Message Text Thank you for choosing [facility] [place]. It was a pleasure to see you today! Please call [phone] for all your office needs. Your opinion [...] improve your experience. We are available via [employer] messages and phone calls during regular business hours, but if there is an urgent need or you need to be seen after hours (in triage or the ER) please call our after hours number [phone]. You will be connected to the environment coordinator physician or as400 administrator. If a hospital visit is recommended please always go to [facility] located at [address] [facility]. Getting your test results is easier than ever! There are several ways you could receive results If you are a [employer] user this allows you rapid access to results. Most test results are released within 24 hours and may be viewable to you even before your provider reviews the results, or Clinical staff may call you with any abnormal results to discuss further your plan of care with the provider, or you could receive a letter for normal results. Attention [employer] Users! Want to send us a non urgent message, check your test results, request a medication refill, or schedule an appointment at your convenience? It's fast, safe, and easy. Just log in to [email or web address] and enter your user name and password. If you don't have a user name or password please ask one of our very qualified staff members and they will be happy to assist you in getting signed up. These messages are checked during office hours only. Please still call the office or physician environment coordinator with any urgent medical issues. For technical support, call If you had labs ordered today you can go to any [facility] lab and walk in with no appointment needed. If any imaging was ordered for you, central scheduling should call you within the week. If you do not hear from them, you can call them at [phone]. Any outpatient referrals with be taken care of by our staff. If you do not hear from their office within 1 week, please call our office at [phone] so we can check on the status for you. We all want to Thank you for choosing [facility]! Normal Provider Locations PROGRESS NOTESon 10-26-2022 Emergency Room Tech Authentication Interface Message Text Patient Active Problem [...] uc/std/pl WNL Pertussis allergy Normal Provider Locations Emergency Room Tech Authentication Interface Message Text Pt presents today for routine OB visit @ 36+1 +FM, no bleeding, no LOF Feeling well overall, ready to meet baby soon! GBS self collected All set for FBBC She has no other questions or concerns S=D RTO 1 week Normal Provider Locations PATIENT INSTRUCTIONSon 10-12 Emergency Room Tech Authentication Interface Message Text Thank you for choosing [facility] [place]. It was a pleasure to see you today! Please call [phone] for all your office needs. Your opinion [...] improve your experience. We are available via Sec[employer]ert messages and phone calls during regular business hours, but if there is an urgent need or you need to be seen after hours (in triage or the ER) please call our after hours number [phone]. You will be connected to the environment coordinator physician or as400 administrator. If a hospital visit is recommended please always go to [facility] located at [address] [place] [address]. Getting your test results is easier than ever! There are several ways you could receive results If you are a [employer] user this allows you rapid access to results. Most test results are released within 24 hours and may be viewable to you even before your provider reviews the results, or Clinical staff may call you with any abnormal results to discuss further your plan of care with the provider, or you could receive a letter for normal results. Attention [employer] Users! Want to send us a non urgent message, check your test results, request a medication refill, or schedule an appointment at your convenience? It's fast, safe, and easy. Just log in to [email or web address] and enter your user name and password. If you don't have a user name or password please ask one of our very qualified staff members and they will be happy to assist you in getting signed up. These messages are checked during office hours only. Please still call the office or physician environment coordinator with any urgent medical issues. For technical support, call If you had labs ordered today you can go to any [facility] lab and walk in with no appointment needed. If any imaging was ordered for you, central scheduling should call you within the week. If you do not hear from them, you can call them at [phone]. Any outpatient referrals with be taken care of by our staff. If you do not hear from their office within 1 week, please call our office at [phone] so we can check on the status for you. We all want to Thank you for choosing [facility]! Normal Provider Locations PROGRESS NOTESon 10-12-2022 Emergency Room Tech Authentication Interface Message Text Routine OB visit @ 34+1 Good FM Denies VB, LOF, or ctx Has 36 week appointment with FBBC scheduled FBBC paperwork signed today, patient remains low risk candidate RPR/CBC ordered S=D RTO 2 weeks Normal Provider Locations Emergency Room Tech Authentication Interface Message Text Patient Active Problem [...] allergy. Normal Provider Locations PATIENT INSTRUCTIONSon 09-28 Emergency Room Tech Authentication Interface Message Text Thank you for choosing [facility] [place]. It was a pleasure to see you today! Please call [phone] for all your office needs. Your opinion [...] improve your experience. We are available via [employer] messages and phone calls during regular business hours, but if there is an urgent need or you need to be seen after hours (in triage or the ER) please call our after hours number [phone]. You will be connected to the environment coordinator physician or as400 administrator. If a hospital visit is recommended please always go to [facility] located at [address] [place] [address] in [place]. Getting your test results is easier than ever! There are several ways you could receive results If you are a [employer] user this allows you rapid access to results. Most test results are released within 24 hours and may be viewable to you even before your provider reviews the results, or Clinical staff may call you with any abnormal results to discuss further your plan of care with the provider, or you could receive a letter for normal results. Attention [employer] Users! Want to send us a non urgent message, check your test results, request a medication refill, or schedule an appointment at your convenience? It's fast, safe, and easy. Just log in to [email or web address] and enter your user name and password. If you don't have a user name or password please ask one of our very qualified staff members and they will be happy to assist you in getting signed up. These messages are checked during office hours only. Please still call the office or physician environment coordinator with any urgent medical issues. For technical support, call If you had labs ordered today you can go to any [facility] lab and walk in with no appointment needed. If any imaging was ordered for you, central scheduling should call you within the week. If you do not hear from them, you can call them at [phone]. Any outpatient referrals with be taken care of by our staff. If you do not hear from their office within 1 week, please call our office at [phone] so we can check on the status for you. We all want to Thank you for choosing [facility] Normal Provider Locations PROGRESS NOTESon 09-28-2022 Emergency Room Tech Authentication Interface Message Text Patient Active Problem List Diagnosis Date Noted ? Supervision of other normal , antepartum 04/27/2022 Planning FBBC Urine Glucose negative Protein negative Leukocytes positive - trace RBC negative Nitrites negative Here for ob check O+ gtt 88/hgb 13.1 +fm Normal Provider Locations Emergency Room Tech Authentication Interface Message Text + movement Feels good Discussed FBBC consent she needs to bring in No other concerns LMixCNM Normal Provider Locations PATIENT INSTRUCTIONSon 09-12 Emergency Room Tech Authentication Interface Message Text Thank you for choosing [facility] [place]. It was a pleasure to see you today! Please call [phone] for all your office needs. Your opinion [...] improve your experience. We are available via Sec[employer] messages and phone calls during regular business hours, but if there is an urgent need or you need to be seen after hours (in triage or the ER) please call our after hours number [phone]. You will be connected to the environment coordinator physician or as400 administrator. If a hospital visit is recommended please always go to [facility] located at [address] [place] [address]. Getting your test results is easier than ever! There are several ways you could receive results If you are a [employer] user this allows you rapid access to results. Most test results are released within 24 hours and may be viewable to you even before your provider reviews the results, or Clinical staff may call you with any abnormal results to discuss further your plan of care with the provider, or you could receive a letter for normal results. Attention [employer] Users! Want to send us a non urgent message, check your test results, request a medication refill, or schedule an appointment at your convenience? It's fast, safe, and easy. Just log in to [email or web address] and enter your user name and password. If you don't have a user name or password please ask one of our very qualified staff members and they will be happy to assist you in getting signed up. These messages are checked during office hours only. Please still call the office or physician environment coordinator with any urgent medical issues. For technical support, call If you had labs ordered today you can go to any [facility] lab and walk in with no appointment needed. If any imaging was ordered for you, central scheduling should call you within the week. If you do not hear from them, you can call them at [phone]. Any outpatient referrals with be taken care of by our staff. If you do not hear from their office within 1 week, please call our office at [phone] so we can check on the status for you. We all want to Thank you for choosing [facility] Normal Provider Locations PROGRESS NOTESon 09-12-2022 Emergency Room Tech Authentication Interface Message Text Patient Active Problem List Diagnosis Date Noted ? Supervision of other normal , antepartum 04/27/2022 Planning FBBC Urine Glucose negative Protein negative Leukocytes negative RBC negative Nitrites negative patient presents for ob check states +FM O+ gtt 88 hgb 13.1 tdap - allergy No questions or concerns at this time. Normal Provider Locations PATIENT INSTRUCTIONSon 08-31 Emergency Room Tech Authentication Interface Message Text Thank you for choosing [facility] [place]. It was a pleasure to see you today! Please call [phone] for all your office needs. Your opinion [...] improve your experience. We are available via [employer] messages and phone calls during regular business hours, but if there is an urgent need or you need to be seen after hours (in triage or the ER) please call our after hours number [phone]. You will be connected to the environment coordinator physician or as400 administrator. If a hospital visit is recommended please always go to [facility] located at [address] [place] [address]. Getting your test results is easier than ever! There are several ways you could receive results If you are a [employer] user this allows you rapid access to results. Most test results are released within 24 hours and may be viewable to you even before your provider reviews the results, or Clinical staff may call you with any abnormal results to discuss further your plan of care with the provider, or you could receive a letter for normal results. Attention [employer] Users! Want to send us a non [...] Please still call the office or physician environment coordinator with any urgent medical issues. For technical support, call If you had labs ordered today you can go to any [facility] lab and walk in with no appointment needed. If any imaging was ordered for you, central scheduling should call you within the week. If you do not hear from them, you can call them at [phone]. Any outpatient referrals with be taken care of by our staff. If you do not hear from their office within 1 week, please call our office at [phone] so we can check on the status for you. We all want to Thank you for choosing [facility] Normal Provider Locations PROGRESS NOTESon 08-31-2022 Emergency Room Tech Authentication Interface Message Text Patient Active Problem List Diagnosis Date Noted ? Supervision of other normal , antepartum 04/27/2022 Planning FBBC Urine Glucose negative Protein negative Leukocytes positive - trace RBC negative Nitrites negative Here for ob check O+ gtt 88/hgb 13.1 Discuss varicose vein on labia Normal Provider Locations Emergency Room Tech Authentication Interface Message Text Pt presents for [...] <140 Provid er Locations PATIENT INSTRUCTIONSon 08-02 Emergency Room Tech Authentication Interface Message Text Thank you for choosing [facility] [place]. It was a pleasure to see you today! Please call [phone] for all your office needs. Your opinion [...] improve your experience. We are available via [employer] messages and phone calls during regular business hours, but if there is an urgent need or you need to be seen after hours (in triage or the ER) please call our after hours number [phone]. You will be connected to the environment coordinator physician or as400 administrator. If a hospital visit is recommended please always go to [facility] located at [address] [facility]. Getting your test results is easier than ever! There are several ways you could receive results If you are a [employer] user this allows you rapid access to [...] safe, and easy. Just log in to [email or web address] and enter your user name and password. If you don't have a user name or password please ask one of our very qualified staff members and they will be happy to assist you in getting signed up. These messages are checked during office hours only. Please still call the office or physician environment coordinator with any urgent medical issues. For technical support, call If you had labs ordered today you can go to any [facility] lab and walk in with no appointment needed. If any imaging was ordered for you, central scheduling should call you within the week. If you do not hear from them, you can call them at [phone]. Any outpatient referrals with be taken care of by our staff. If you do not hear from their office within 1 week, please call our office at [phone] so we can check on the status for you. We all want to Thank you for choosing [facility] Normal Provider Locations PROGRESS NOTESon 08-02-2022 Emergency Room Tech Authentication Interface Message Text Pt presents today for routine OB visit @ 24+0 +FM, no bleeding, no LOF Feeling well overall Plans to do GTT in next few weeks Will call FBBC between 28-32 weeks She has no other questions or concerns S=D RTO 4 weeks Normal Provider Locations Emergency Room Tech Authentication Interface Message Text Patient Active Problem List Diagnosis Date Noted ? Supervision of other normal , antepartum 04/27/2022 Planning FBBC Urine Glucose negative Protein negative Leukocytes positive - 1+ RBC negative Nitrites negative Here for exam. Will do GTT around 26 weeks. No concerns or questions today. +FM, says baby is moving well. Normal Provider Locations PATIENT INSTRUCTIONSon 06-30 Emergency Room Tech Authentication Interface Message Text Thank you for choosing [facility] [place]. It was a pleasure to see you today! Please call [phone] for all your office needs. Your opinion [...] improve your experience. We are available via [employer] messages and phone calls during regular business hours, but if there is an urgent need or you need to be seen after hours (in triage or the ER) please call our after hours number [phone]. You will be connected to the environment coordinator physician or as400 administrator. If a hospital visit is recommended please always go to [facility] located at [address] [facility] in [place]. Getting your test results is easier than ever! There are several ways you could receive results If you are a [employer] user this allows you rapid access to results. Most test results are released within 24 hours and may be viewable to you even before your provider reviews the results, or Clinical staff may call you with any abnormal results to discuss further your plan of care with the provider, or you could receive a letter for normal results. Attention [employer] Users! Want to send us a non urgent message, check your test results, request a medication refill, or schedule an appointment at your convenience? It's fast, safe, and easy. Just log in to [email or web address] and enter your user name and password. If you don't have a user name or password please ask one of our very qualified staff members and they will be happy to assist you in getting signed up. These messages are checked during office hours only. Please still call the office or physician environment coordinator with any urgent medical issues. For technical support, call If you had labs ordered today you can go to any [facility] lab and walk in with no appointment needed. If any imaging was ordered for you, central scheduling should call you within the week. If you do not hear from them, you can call them at [phone]. Any outpatient referrals with be taken care of by our staff. If you do not hear from their office within 1 week, please call our office at [phone] so we can check on the status for you. We all want to Thank you for choosing [facility]! Normal Provider Locations PROGRESS NOTESon 06-30-2022 Emergency Room Tech Authentication Interface Message Text Patient Active Problem [...] hgb 14.1 uc/std/pl WNL Normal Provider Locations Emergency Room Tech Authentication Interface Message Text Yanet Banks was seen in [facility] 06/30/2022. Normal [facility] PATIENT INSTRUCTIONSon 05-25 Emergency Room Tech Authentication Interface Message Text Thank you for choosing [facility]. It was a pleasure to see you today! Please call [phone] for all your office needs. Your opinion [...] improve your experience. We are available via [employer] messages and phone calls during regular business hours, but if there is an urgent need or you need to be seen after hours (in triage or the ER) please call our after hours number [phone]. You will be connected to the environment coordinator physician or as400 administrator. If a hospital visit is recommended please always go to main [facility] located at [address] [place] [address]. Getting your test results is easier than ever! There are several ways you could receive results If you are a [employer] user this allows you rapid access to results. Most test results are released within 24 hours and may be viewable to you even before your provider reviews the results, or Clinical staff may call you with any abnormal results to discuss further your plan of care with the provider, or you could receive a letter for normal results. Attention [employer] Users! Want to send us a non urgent message, check your test results, request a medication refill, or schedule an appointment at your convenience? It's fast, safe, and easy. Just log in to [email or web address] and enter your user name and password. If you don't have a user name or password please ask one of our very qualified staff members and they will be happy to assist you in getting signed up. These messages are checked during office hours only. Please still call the office or physician environment coordinator with any urgent medical issues. For technical support, call If you had labs ordered today you can go to any [facility] lab and walk in with no appointment needed. If any imaging was ordered for you, central scheduling should call you within the week. If you do not hear from them, you can call them at [phone]. Any outpatient referrals with be taken care of by our staff. If you do not hear from their office within 1 week, please call our office at [phone] so we can check on the status for you. We all want to Thank you for choosing [facility] Normal Provider Locations PROGRESS NOTESon 05-25-2022 Emergency Room Tech Authentication Interface Message Text Patient Active Problem [...] concerns at this time Normal Provider Locations Emergency Room Tech Authentication Interface Message Text Yanet Banks [id number] 1995 Patient Active Problem List Diagnosis ? [...] 3.5-10.9 Provid er Locations ANESTH ADDENDUMon 04-27-2022 Emergency Room Tech Authentication Interface Message Text Addended by: ZAIDA [...] DETECTED Normal Provider Locations PROGRESS NOTESon 04-27-2022 Emergency Room Tech Authentication Interface Message Text There are no [...] concerns at this time Normal Provider Locations Emergency Room Tech Authentication Interface Message Text New OB visit [...] Anion gap [Moles/Vol] 13 mmol/L Normal 5-15 [facility] Comment on above: Performed By: #### L [id number] #### [place] [address] Calcium [Mass/Vol] 9.5 mg/dL Normal 8.5-10.5 [facility] Comment on above: Performed By: #### L [id number] #### [place] [address] Chloride [Moles/Vol] 101 mmol/L Normal 96-110 [facility] Comment on above: Performed By: #### L [id number] #### [place] [id number] CO2 [Moles/Vol] 22 mmol/L Normal 19-32 [facility] Comment on above: Performed By: #### L [id number] #### [place] [id number] Creatinine [Mass/Vol] 0.6 mg/dL Normal 0.5-1.2 [facility] Comment on above: Performed By: #### L [id number] #### [place] [id number] ESTIMATED GFR 126 mL/min/1.73m*2 Normal >=60 [facility] Comment on above: Performed By: #### L [id number] #### [place] [id number] Glucose [Mass/Vol] 112 mg/dL High 70-99 [facility] Comment on above: Performed By: #### L [id number] #### [place] [id number] Potassium [Moles/Vol] 3.7 mmol/L Normal 3.4-5.3 [facility] Comment on above: Performed By: #### L [id number] #### [place] [id number] Sodium [Moles/Vol] 136 mmol/L Normal 135-148 [facility] Comment on above: Performed By: #### L [id number] #### [place] [id number] Urea nitrogen [Mass/Vol] 10 mg/dL Normal 3-29 [facility] Comment on above: Performed By: #### L [id number] #### [place] [id number] Urea nitrogen/Creatinine [Mass ratio] 17 mg/mg Normal - [facility] Comment on above: Performed By: #### L [id number] #### [place] [address] Anion gap [Moles/Vol] 13 mmol/L 5 - 15 [facility] Calcium [Mass/Vol] 9.5 mg/dL 8.5 - 10.5 mg/dL [facility] Chloride [Moles/Vol] 101 mmol/L [facility] CO2 [Moles/Vol] 22 mmol/L [facility] Creatinine [Mass/Vol] 0.6 mg/dL 0.5 - 1.2 mg/dL [facility] GFR/1.73 sq M.predicted among blacks MDRD (S/P/Bld) [Vol rate/Area] 126 mL/min/{1.73_m2} - [facility] Glucose [Mass/Vol] 112 mg/dL High 70 - 99 mg/dL [facility] Interpretation and review of laboratory results Abnormal [facility] Potassium [Moles/Vol] 3.7 mmol/L [facility] Sodium [Moles/Vol] 136 mmol/L [facility] Urea nitrogen [Mass/Vol] 10 mg/dL 3 - 29 mg/dL [facility] Urea nitrogen/Creatinine [Mass ratio] 17 mg/mg - [facility] COMPLETE BLOOD COUNT WITH DI FFERENTIALon 04-23-2022 BASOPHILS ABSOLUTE COUNT (10*3/UL) BY AUTOMATED COUNT 0.0 K/uL Normal 0.0-0.3 [facility] Comment on above: Performed By: #### L [id number] #### [place] [address] BASOPHILS RELATIVE PERCENT BY AUTOMATED COUNT 0.1 % Normal 0.0-2.0 [facility] Comment on above: Performed By: #### L [id number] #### [place] [address] Eosinophils (Bld) [#/Vol] 0.0 10*3/uL Normal 0.0-0.5 [facility] Comment on above: Performed By: #### L [id number] #### [place] [address] EOSINOPHILS RELATIVE PERCENT BY AUTOMATED COUNT 0.1 % Normal 0.0-5.0 [facility] Comment on above: Performed By: #### L [id number] #### [place] [address] Erythrocyte distribution width (RBC) [Ratio] 11.8 % Normal <=15.0 [facility] Comment on above: Performed By: #### L [id number] #### [place] [address] Hematocrit (Bld) [Volume fraction] 42.8 % Normal 34.0-49.0 [facility] Comment on above: Performed By: #### L [id number] #### [place] [id number] Hemoglobin (Bld) [Mass/Vol] 15.1 g/dL Normal 11.2-15.7 [facility] Comment on above: Performed By: #### L [id number] #### [place] [id number] Immature granulocytes (Bld) [#/Vol] 0.0 10*3/uL Normal 0.0-0.1 [facility] Comment on above: Performed By: #### L [id number] #### [place] [address] Immature granulocytes/100 WBC (Bld) 0.2 % Normal <1.0 [facility] Comment on above: Performed By: #### L [id number] #### [place] [id number] LYMPHOCYTES ABSOLUTE COUNT (10*3/UL) BY AUTOMATED COUNT 0.5 K/uL Low 0.9-4.1 [facility] Comment on above: Performed By: #### L [id number] #### [place] [id number] LYMPHOCYTES RELATIVE PERCENT BY AUTOMATED COUNT 4.5 % Low 14.0-51.0 [facility] Comment on above: Performed By: #### L [id number] #### [place] [address] MCH (RBC) [Entitic mass] 31.9 pg Normal 26.0-34.0 [facility] Comment on above: Performed By: #### L [id number] #### [place] [address] MCHC (RBC) [Mass/Vol] 35.3 g/dL Normal 30.7-35.5 [facility] Comment on above: Performed By: #### L [id number] #### [place] [address] MCV (RBC) [Entitic vol] 90.5 fL Normal 80.0-100.0 [facility] Comment on above: Performed By: #### L [id number] #### [place] [address] MEAN PLATELET VOLUME (FL) BY AUTOMATED COUNT 9.1 fL Normal 7.2-11.7 [facility] Comment on above: Performed By: #### L [id number] #### [place] [address] MONOCYTES ABSOLUTE COUNT (10*3/UL) BY AUTOMATED COUNT 0.4 K/uL Normal 0.2-1.0 [facility] Comment on above: Performed By: #### L [id number] #### [place] [address] MONOCYTES RELATIVE PERCENT BY AUTOMATED COUNT 3.6 % Low 4.0-12.0 [facility] Comment on above: Performed By: #### L [id number] #### [place] [address] NEUTROPHILS ABSOLUTE COUNT (10*3/UL) BY AUTOMATED COUNT 9.7 K/uL High 1.8-7.5 [facility] Comment on above: Performed By: #### L [id number] #### [place] [address] NEUTROPHILS RELATIVE PERCENT BY AUTOMATED COUNT 91.5 % High 42.0-80.0 [facility] Comment on above: Performed By: #### L [id number] #### [place] [address] PLATELETS (10*3/UL) BY AUTOMATED COUNT 291 K/uL Normal 140-400 [facility] Comment on above: Performed By: #### L [id number] #### [place] [address] RBC (Bld) [#/Vol] 4.73 10*6/uL Normal 3.95-5.26 [facility] Comment on above: Performed By: #### L [id number] #### [place] [address] WBC (Bld) [#/Vol] 10.6 10*3/uL Normal 3.5-10.9 [facility] Comment on above: Performed By: #### L [id number] #### [place] [address] Basophils (Bld) [#/Vol] 0.0 10*3/uL 0.0 - 0.3 K/uL [facility] Basophils/100 WBC (Bld) 0.1 % 0.0 - 2.0 % [facility] Eosinophils (Bld) [#/Vol] 0.0 10*3/uL 0.0 - 0.5 K/uL [facility] Eosinophils/100 WBC (Bld) 0.1 % 0.0 - 5.0 % [facility] Erythrocyte distribution width (RBC) [Ratio] 11.8 % NINF - 15.0 % [facility] Hematocrit (Bld) [Volume fraction] 42.8 % 34.0 - 49.0 % [facility] Hemoglobin (Bld) [Mass/Vol] 15.1 g/dL 11.2 - 15.7 g/dL [facility] Immature granulocytes (Bld) [#/Vol] 0.0 10*3/uL 0.0 - 0.1 K/uL [facility] Immature granulocytes/100 WBC (Bld) 0.2 % NINF - 1.0 % [facility] Interpretation and review of laboratory results Abnormal [facility] Lymphocytes (Bld) [#/Vol] 0.5 [...] (Bld) [#/Vol] 4.73 10*6/uL [facility] WBC corrected for nucl RBC Auto (Bld) [#/Vol] 10.6 K/uL 3.5 - 10.9 K/uL [facility] HEPATIC FUNCTION PANELon Albumin [Mass/Vol] 4.4 g/dL Normal 3.5-5.2 [facility] Comment on above: Performed By: #### L [id number] ####[place] [phone] ALP [Catalytic activity/Vol] 55 U/L Normal 23-144 [facility] Comment on above: Performed By: #### L [id number] ####[place] [phone] ALT [Catalytic activity/Vol] 12 U/L Normal 0-60 [facility] Comment on above: Performed By: #### L [id number] ####[place] [phone] AST [Catalytic activity/Vol] 17 U/L Normal 0-46 [facility] Comment on above: Performed By: #### L [id number] ####[place] [phone] Bilirubin [Mass/Vol] 0.6 mg/dL Normal 0.0-1.2 [facility] Comment on above: Performed By: #### L [id number] ####[place] [phone] BILIRUBIN, DIRECT < Normal 0.0-0.4 [facility] Comment on above: Performed By: #### L [id number] ####[place] [phone] BILIRUBIN, INDIRECT Normal [facility] Comment on above: Result Comment: Unab le to calculate. Performed By: #### L [id number] ####[place] [phone] Protein [Mass/Vol] 7.3 g/dL Normal 6.0-8.3 [facility] Comment on above: Performed By: #### L [id number] ####[place] [phone] Albumin [Mass/Vol] 4.4 g/dL 3.5 - 5.2 g/dL [facility] ALP [Catalytic activity/Vol] 55 U/L 23 - 144 U/L [facility] ALT [Catalytic activity/Vol] 12 U/L 0 - 60 U/L [facility] AST [Catalytic activity/Vol] 17 U/L 0 - 46 U/L [facility] Bilirubin [Mass/Vol] 0.6 mg/dL 0.0 - 1.2 mg/dL [facility] Bilirubin.direct [Mass/Vol] mg/dL 0.0 - 0.4 mg/dL [facility] Bilirubin.indirect [Mass/Vol] [facility] Comment on above: Unable to calculate. Protein [Mass/Vol] 7.3 g/dL 6.0 - 8.3 g/dL [facility] LIPASEon 04-23-2022 Lipase [Catalytic activity/Vol] 27 U/L Normal 0-60 [facility] Comment on above: Performed By: #### L [id number] ####[place] [phone] Interpretation and review of laboratory results [facility] [Catalytic activity/Vol] 27 U/L 0 - 60 U/L [facility] No Panel Informationon 04-23 [facility] Vital Signs Date Time Vital Sign Value Performing Clinician Faci lity 03-14-2025 10:07-0400 Body mass index (BMI) [Ratio] 29.29 kg/m2 Khadra Mancini APRN.CNM Work Phone: [facility] 03-14-2025 10:07-0400 Body weight 70.31 kg Khadra Mancini APRN.CNM Work Phone: [facility] 03-14-2025 10:07-0400 Diastolic blood pressure 82 mm[Hg] Khadra Mancini APRN.CNM Work Phone: [facility] 03-14-2025 10:07-0400 Systolic blood pressure 114 mm[Hg] Khadra Mancini APRN.CNM Work Phone: [facility] 03-13-2025 01:59-0400 Body height 157.48 cm No Primary Care Physician [facility] 03-13-2025 01:59-0400 Body mass index (BMI) [Ratio] 28.7 kg/m2 No Primary Care Physician [facility] 03-13-2025 01:59-0400 Body weight 71.21 kg No Primary Care Physician [facility] 03-13-2025 01:55-0400 Diastolic blood pressure 77 mm[Hg] No Primary Care Physician [facility] 03-13-2025 01:55-0400 Heart rate 83 /min No Primary Care Physician [facility] 03-13-2025 01:55-0400 Systolic blood pressure 108 mm[Hg] No Primary Care Physician [facility] 03-13-2025 01:54-0400 SaO2% (BldA) [Mass fraction] 97 % No Primary Care Physician [facility] 03-13-2025 01:49-0400 Body temperature 97.9 [degF] No Primary Care Physician [facility] 03-13-2025 01:49-0400 Respiratory rate 16 /min No Primary Care Physician [facility] 03-11-2025 10:33-0400 Body mass index (BMI) [Ratio] 29.48 kg/m2 Khadra Mancini APRN.CNM Work Phone: [facility] 03-11-2025 10:33-0400 Body weight 70.76 kg Khadra Mancini APRN.CNM Work Phone: [facility] 03-11-2025 10:33-0400 Diastolic blood pressure 62 mm[Hg] Khadra Mancini APRN.CNM Work Phone: [facility] 03-11-2025 10:33-0400 Systolic blood pressure 110 mm[Hg] Khadra Mancini APRN.CNM Work Phone: [facility] 03-07-2025 13:14-0400 Body mass index (BMI) [Ratio] 29.78 kg/m2 Annie Thakur APRN.CNM Work Phone: [facility] 03-07-2025 13:14-0400 Body weight 71.49 kg Annie Thakur APRN.CNM Work Phone: [facility] 03-07-2025 13:14-0400 Diastolic blood pressure 64 mm[Hg] Annie Thakur APRN.CNM Work Phone: [facility] 03-07-2025 13:14-0400 Systolic blood pressure 118 mm[Hg] Annie Thakur LIQUIFIED NATURAL GAS SPECIALIST.CNM Work Phone: [facility] 03-05-2025 09:02-0400 Body mass index (BMI) [Ratio] 29.4 kg/m2 Annie Michaelts LIQUIFIED NATURAL GAS SPECIALIST.CNM Work Phone: [facility] 03-05-2025 09:02-0400 Body weight 70.58 kg Annie Thakur LIQUIFIED NATURAL GAS SPECIALIST.CNM Work Phone: [facility] 03-05-2025 09:02-0400 Diastolic blood pressure 64 mm[Hg] Annie Thakur LIQUIFIED NATURAL GAS SPECIALIST.CNM Work Phone: [facility] 03-05-2025 09:02-0400 Systolic blood pressure 110 mm[Hg] Annie Thakur LIQUIFIED NATURAL GAS SPECIALIST.CNM Work Phone: [facility] 02-25-2025 08:05-0400 Body mass index (BMI) [Ratio] 28.91 kg/m2 Khadra Mancini LIQUIFIED NATURAL GAS SPECIALIST.CNM Work Phone: [facility] 02-25-2025 08:05-0400 Body weight 69.4 kg Khadra Mancini LIQUIFIED NATURAL GAS SPECIALIST.CNM Work Phone: [facility] 02-25-2025 08:05-0400 Diastolic blood pressure 68 mm[Hg] Khadra Mancini LIQUIFIED NATURAL GAS SPECIALIST.CNM Work Phone: [facility] 02-25-2025 08:05-0400 Systolic blood pressure 108 mm[Hg] Khadra Mancini LIQUIFIED NATURAL GAS SPECIALIST.CNM Work Phone: [facility] 02-11-2025 08:47-0400 Body mass index (BMI) [Ratio] 28.15 kg/m2 Chinyere Lehman MD Work Phone: [facility] 02-11-2025 08:47-0400 Body weight 67.59 kg Chinyere Lehman MD Work Phone: [facility] 02-11-2025 08:47-0400 Diastolic blood pressure 62 mm[Hg] Chinyere Lehman MD Work Phone: [facility] 02-11-2025 08:47-0400 Systolic blood pressure 98 mm[Hg] Chinyere Lehman MD Work Phone: [facility] 01-28-2025 08:38-0400 Body mass index (BMI) [Ratio] 27.59 kg/m2 Arthur Conklin MD Work Phone: [facility] 01-28-2025 08:38-0400 Body weight 66.22 kg Arthur Conklin MD Work Phone: [facility] 01-28-2025 08:38-0400 Diastolic blood pressure 60 mm[Hg] Arthur Conklin MD Work Phone: [facility] 01-28-2025 08:38-0400 Systolic blood pressure 98 mm[Hg] Arthur Conklin MD Work Phone: [facility] 01-14-2025 08:04-0400 Body mass index (BMI) [Ratio] 27.21 kg/m2 Khadra Mancini APRN.CNM Work Phone: [facility] 01-14-2025 08:04-0400 Body weight 65.32 kg Khadra Live TURNERN.CNM Work Phone: [facility] 01-14-2025 08:04-0400 Diastolic blood pressure 70 mm[Hg] Khadra Live TURNERN.CNM Work Phone: [facility] 01-14-2025 08:04-0400 Systolic blood pressure 116 mm[Hg] Khadra Live TURNERN.CNM Work Phone: [facility] 12-31-2024 08:07-0400 Body mass index (BMI) [Ratio] 26.83 kg/m2 Khadramignon Mancini APRN.CNM Work Phone: [facility] 12-31-2024 08:07-0400 Body weight 64.41 kg Khadra Live MORE.CNM Work Phone: [facility] 12-31-2024 08:07-0400 Diastolic blood pressure 62 mm[Hg] Khadra Mancini LIQUIFIED NATURAL GAS SPECIALIST.CNM Work Phone: [facility] 12-31-2024 08:07-0400 Systolic blood pressure 98 mm[Hg] Khadra Mancini LIQUIFIED NATURAL GAS SPECIALIST.CNM Work Phone: [facility] 12-17-2024 09:57-0400 Body mass index (BMI) [Ratio] 26.64 kg/m2 Khadra Mancini LIQUIFIED NATURAL GAS SPECIALIST.CNM Work Phone: [facility] 12-17-2024 09:57-0400 Body weight 63.96 kg Khadra Mancini LIQUIFIED NATURAL GAS SPECIALIST.CNM Work Phone: [facility] 12-17-2024 09:57-0400 Diastolic blood pressure 62 mm[Hg] Khadra Mancini LIQUIFIED NATURAL GAS SPECIALIST.CNM Work Phone: [facility] 12-17-2024 09:57-0400 Systolic blood pressure 100 mm[Hg] Khadra Mancini LIQUIFIED NATURAL GAS SPECIALIST.CNM Work Phone: [facility] 11-19-2024 11:23-0400 Body mass index (BMI) [Ratio] 26.07 kg/m2 Khadra Mancini LIQUIFIED NATURAL GAS SPECIALIST.CNM Work Phone: [facility] 11-19-2024 11:23-0400 Body weight 62.6 kg Khadra Mancini LIQUIFIED NATURAL GAS SPECIALIST.CNM Work Phone: [facility] 11-19-2024 11:23-0400 Diastolic blood pressure 62 mm[Hg] Khadra Mancini LIQUIFIED NATURAL GAS SPECIALIST.CNM Work Phone: [facility] 11-19-2024 11:23-0400 Systolic blood pressure 104 mm[Hg] Khadra Mancini LIQUIFIED NATURAL GAS SPECIALIST.CNM Work Phone: [facility] 10-23-2024 09:41-0400 Body mass index (BMI) [Ratio] 25.32 kg/m2 Annie Thakur LIQUIFIED NATURAL GAS SPECIALIST.CNM Work Phone: [facility] 10-23-2024 09:41-0400 Body weight 60.78 kg Annie Plotchapincito LIQUIFIED NATURAL GAS SPECIALIST.CNM Work Phone: [facility] 10-23-2024 09:41-0400 Diastolic blood pressure 64 mm[Hg] Annie Plotts LIQUIFIED NATURAL GAS SPECIALIST.CNM Work Phone: [facility] 10-23-2024 09:41-0400 Systolic blood pressure 112 mm[Hg] Annie Plotts LIQUIFIED NATURAL GAS SPECIALIST.CNM Work Phone: [facility] 09-24-2024 09:35-0400 Body mass index (BMI) [Ratio] 24.75 kg/m2 Khadra Mancini LIQUIFIED NATURAL GAS SPECIALIST.CNM Work Phone: [facility] 09-24-2024 09:35-0400 Body weight 59.42 kg Khadra Mancini LIQUIFIED NATURAL GAS SPECIALIST.CNM Work Phone: [facility] 09-24-2024 09:35-0400 Diastolic blood pressure 66 mm[Hg] Khadra Mancini LIQUIFIED NATURAL GAS SPECIALIST.CNM Work Phone: [facility] 09-24-2024 09:35-0400 Systolic blood pressure 108 mm[Hg] Khadra Mancini LIQUIFIED NATURAL GAS SPECIALIST.CNM Work Phone: [facility] 08-28-2024 09:42-0500 Body mass index (BMI) [Ratio] 24.19 kg/m2 Annie Plotts LIQUIFIED NATURAL GAS SPECIALIST.CNM Work Phone: [facility] 08-28-2024 09:42-0500 Body weight 58.06 kg Annie Plotts LIQUIFIED NATURAL GAS SPECIALIST.CNM Work Phone: [facility] 08-28-2024 09:42-0500 Diastolic blood pressure 68 mm[Hg] Annie Plotts LIQUIFIED NATURAL GAS SPECIALIST.CNM Work Phone: [facility] 08-28-2024 09:42-0500 Systolic blood pressure 110 mm[Hg] Annie Plotts LIQUIFIED NATURAL GAS SPECIALIST.CNM Work Phone: [facility] 07-31-2024 08:40-0500 Body mass index (BMI) [Ratio] 23.51 kg/m2 Annie Thakur LIQUIFIED NATURAL GAS SPECIALIST.CNM Work Phone: [facility] 07-31-2024 08:40-0500 Body weight 56.43 kg Annie Thakur LIQUIFIED NATURAL GAS SPECIALIST.CNM Work Phone: [facility] 07-31-2024 08:40-0500 Diastolic blood pressure 60 mm[Hg] Annie Thakur LIQUIFIED NATURAL GAS SPECIALIST.CNM Work Phone: [facility] 07-31-2024 08:40-0500 Systolic blood pressure 122 mm[Hg] Annie Thakur LIQUIFIED NATURAL GAS SPECIALIST.CNM Work Phone: [facility] 04-23-2022 14:16-0400 Body height 157.5 cm Joslyn Panda MD Work Phone[facility] 04-23-2022 14:16-0400 Body mass index (BMI) [Ratio] 21.22 kg/m2 Joslyn Panda MD Work Phone: [facility] 04-23-2022 14:16-0400 Body temperature 98.6 [degF] Joslyn Panda MD Work Phone: [facility] 04-23-2022 14:16-0400 Body weight 52.62 kg Joslyn Panda MD Work Phone: [facility] 04-23-2022 14:16-0400 Diastolic blood pressure 82 mm[Hg] Joslyn Panda MD Work Phone: [facility] 04-23-2022 14:16-0400 Heart rate 117 /min Joslyn Panda MD Work Phone: [facility] 04-23-2022 14:16-0400 Respiratory rate 18 /min Joslyn Panda MD Work Phone: [facility] 04-23-2022 14:16-0400 SaO2% (BldA) [Mass fraction] 97 % Joslyn Panda MD Work Phone: [facility] 04-23-2022 14:16-0400 Systolic blood pressure 129 mm[Hg] Joslyn Panda MD Work Phone: [facility] Encounters Encounter Date Encounter Type Care Provider Facility Start: 03-14-2025 End: 03-14-2025 Patient encounter procedure [employer] [facility] Comment on [...] procedure [facility]orado [facility] Work Phone: Start: 03-12-2025 End: 03-12-2025 Telephone encounter Chinyere Lehman MD Work Phone: OB/Gynecology Comment on above: OB Contractions Start: 03-11-2025 End: 03-11-2025 Patient encounter procedure Khadra Live LIQUIFIED NATURAL GAS SPECIALIST.CNM Work Phone: OB/Gynecology Comment on above: Encounter for superv ision of other normal in third trimester (HCC) (Primary Dx); 40 weeks gestation of (HCC); Multip[employer] Start: 03-11-2025 End: 03-11-2025 ambulatory KHADRA MANCINI Facility:[facility] Start: 03-07-2025 End: 03-07-2025 Telephone encounter Annie Thakur LIQUIFIED NATURAL GAS SPECIALIST.CNM Work Phone: OB/Gynecology Start: 03-07-2025 End: 03-07-2025 Patient encounter procedure Annie Thakur LIQUIFIED NATURAL GAS SPECIALIST.CNM Work Phone: OB/Gynecology Comment on above: 39 weeks gestation o f (HCC) (Primary Dx); Encounter for supervision of other normal in third trimester (HCC) Start: 03-07-2025 End: 03-07-2025 ambulatory ANNIE THAKUR Facility:[facility] Start: 03-05-2025 End: 03-05-2025 Patient encounter procedure Annie Thakur LIQUIFIED NATURAL GAS SPECIALIST.HUM Work Phone: OB/Gynecology Comment on above: 39 weeks gestation o f (HCC) (Primary Dx); Encounter for supervision of other normal in third trimester (HCC) Start: 03-05-2025 End: 03-05-2025 ambulatory ANNIE SHAISTA Facility:[facility] Start: 02-25-2025 End: 02-25-2025 Patient encounter procedure Khadra Mancini APRN.CNM Work Phone: OB/Gynecology Comment on above: Encounter for superv ision of other normal in third trimester (HCC) (Primary Dx); 38 weeks gestation of (HCC) Population Health Na vigation Outreach (Ob/peds) Start: 02-25-2025 End: 02-25-2025 ambulatory Niru Casarez MA [facility] Start: 02-18-2025 End: 02-18-2025 ambulatory KHADRA MANCINI Facility:[facility] Start: 02-11-2025 End: 02-11-2025 Patient encounter procedure Chinyere Lehman MD Work Phone: OB/Gynecology Comment on above: Encounter for superv ision of other normal in third trimester (HCC) (Primary Dx); 36 weeks gestation of (HCC) Start: 02-11-2025 End: 02-11-2025 ambulatory CHINYERE LEHMAN Facility:[facility] Start: 01-28-2025 End: 01-29-2025 Telephone encounter Arthur Conklin MD Work Phone: OB/Gynecology Comment on above: Question (OB Questio n) Start: 01-28-2025 End: 01-28-2025 ambulatory ARTHUR CONKLIN Facility:[facility] Start: 01-28-2025 End: 01-28-2025 Patient encounter procedure Arthur Conklin MD Work Phone: OB/Gynecology Comment on above: Encounter for superv ision of other normal in third trimester (HCC) (Primary Dx); 34 weeks gestation of (HCC) Start: 01-14-2025 End: 01-14-2025 ambulatory KHADRA MANCINI Facility:[facility] Start: 01-14-2025 End: 01-14-2025 Patient encounter procedure Khadra Mancini APRN.CNM Work Phone: OB/Gynecology Comment on above: Encounter for superv ision of other normal in third trimester (HCC) (Primary Dx); 32 weeks gestation of (HCC) Start: 01-01-2025 End: 01-01-2025 Telephone encounter Nica Uriarte RN Maternal Medicine Comment on above: Blood Tester Fowl - O ther (PRAF) Start: 12-31-2024 End: 12-31-2024 ambulatory [facility] Facility:[facility] Start: 12-31-2024 End: 12-31-2024 Patient encounter procedure [...] of (HCC) Start: 12-17-2024 End: 12-17-2024 ambulatory [facility] Facility:[facility] Start: 11-19-2024 End: 11-19-2024 Patient encounter procedure Khadra Mancini APRN.MARCELA Work Phone: OB/Gynecology Comment on above: Encounter for superv ision of other normal in second trimester (HCC) (Primary Dx); 24 weeks gestation of (HCC); Screening for diabetes mellitus Start: 11-19-2024 End: 11-19-2024 ambulatory [facility] Facility:[facility] Start: 10-24-2024 End: 10-24-2024 Telephone encounter Nica Uriarte RN Maternal Medicine Comment on above: Blood Tester Fowl - O ther (PRAF) Start: 10-23-2024 End: 10-23-2024 [facility]ulatory [facility] Start: 10-23-2024 End: 10-23-2024 Patient encounter procedure Annie Thakur LIQUIFIED NATURAL GAS SPECIALIST.CNCandice Work Phone: OB/Gynecology Comment on above: 20 weeks gestation o f (HCC) (Primary Dx); Encounter for supervision of other normal in second trimester (HCC); Encounter for supervision of normal in multigravida ([facility]) Start: 10-23-2024 End: 10-23-2024 ambulatory [facility] Facility:[facility] Start: 10-23-2024 End: 10-23-2024 Patient encounter procedure Whi Tech 1 E Commerce Developer Mfm Wstr Mob Maternal Medicine Comment on above: Encounter for anatomic survey (HCC) (Primary Dx); 20 weeks gestation of ([facility]) Start: 09-24-2024 End: 09-24-2024 ambulatory KHADRA LIVE Facility:[facility] Start: 09-24-2024 End: 09-24-2024 Patient encounter procedure Khadra Live LIQUIFIED NATURAL GAS SPECIALIST.CNCandice Work Phone: OB/Gynecology Comment on above: Encounter for superv ision of other normal in second trimester (Primary Dx); 16 weeks gestation of Start: 08-29-2024 End: 10-29-2024 Follow-up encounter Annie Thakur APRN.MARCELA Work Phone: OB/Gynecology Start: 08-28-2024 End: 08-28-2024 ambulatory [facility] Start: 08-28-2024 End: 08-28-2024 Patient encounter procedure Annie Thakur LIQUIFIED NATURAL GAS SPECIALIST.CNM Work Phone: OB/Gynecology Comment on above: 12 weeks gestation o f (Primary Dx); Encounter for supervision of other normal in second trimester; Multiparity Encounter for antena tony screening for malformation using ultrasound (Primary Dx); 12 weeks gestation of ; Encounter for (NT) nuchal translucency scan Start: 08-01-2024 End: 08-01-2024 Telephone encounter Nurse E Commerce Developer Ej Lee Work Phone: Obstetrics/Gynecology Comment on above: PRAF Start: 07-31-2024 End: 07-31-2024 ambulatory ANNIE THAKUR Facility:[facility] Start: 07-31-2024 End: 07-31-2024 Patient encounter procedure Annie Thakur LIQUIFIED NATURAL GAS SPECIALIST.CNM Work Phone: OB/Gynecology Comment on above: Encounter for superv ision of normal in multigravida (Primary Dx); 8 weeks gestation of ; Multiparity Start: 07-27-2024 End: 07-29-2024 Refill Ling Castañedah Luke LIQUIFIED NATURAL GAS SPECIALIST-COMPLIANCE PROFESSIONAL Work Phone: [facility] Comment on above: Encounter for initia l prescription of vaginal ring hormonal contraceptive Start: 10-25-2023 End: 10-25-2023 ambulatory Ling Daly [facility] Start: 07-27-2023 End: 07-27-2023 ambulatory MARYANN [facility] Start: 01-16-2023 End: 01-16-2023 ambulatory MARYANN [facility] Start: 01-16-2023 Encounter for genera l adult medical examination without abnormal findings LING DALY [facility] Start: 11-17-2022 End: 11-19-2022 Evaluation and management of inpatient [facility] Start: 11-09-2022 End: 11-09-2022 ambulatory MARYANN [...] Provider Locations Start: 06-30-2022 ambulatory ALBERTA NOEL [facility] Start: 05-25-2022 ambulatory MARYANN MATHIAS [facility] er Locations Start: 04-23-2022 End: 04-23-2022 Emergency department patient visit JOSLYN PANDA [facility] Start: 04-23-2022 End: 04-23-2022 Emergency department patient visit Joslyn Panda MD Work Phone: [facility] Start: 04-12-2022 End: 04-12-2022 ambulatory MARYANN MATHIAS Provider Locations Procedures Date Procedure Procedure Detail Performing Clinician Start: 03-14-2025 Us preg uterus after 1st trimest 07/17 gestation Khadra Mancini LIQUIFIED NATURAL GAS SPECIALIST.CNM Work Phone: Start: 03-14-2025 Urnls dip stick/tabl et rgnt non-auto w/o micrscp Khadra Live LIQUIFIED NATURAL GAS SPECIALIST.CNM Work Phone: Start: 03-11-2025 Urnls dip stick/tabl et rgnt non-auto w/o micrscp Khadra Live LIQUIFIED NATURAL GAS SPECIALIST.CNM Work Phone: Start: 03-07-2025 Urnls dip stick/tabl et rgnt non-auto w/o micrscp Annie Plotts LIQUIFIED NATURAL GAS SPECIALIST.CNM Work Phone: Start: 03-05-2025 Urnls dip stick/tabl et rgnt non-auto w/o micrscp Annie Plotts LIQUIFIED NATURAL GAS SPECIALIST.CNM Work Phone: Start: 02-25-2025 Urnls dip stick/tabl et rgnt non-auto w/o micrscp Khadra Mancini LIQUIFIED NATURAL GAS SPECIALIST.CNM Work Phone: Start: 02-11-2025 Urnls dip stick/tabl et rgnt non-auto w/o micrscp Chinyere Lehman MD Work Phone: Start: 10-23-2024 Us preg uterus after 1st trimest 1/ gestation Annie Thakur LIQUIFIED NATURAL GAS SPECIALIST.CNM Work Phone: Start: 08-28-2024 Us preg uterus after 1st trimest 1/ gestation Annie Thakur LIQUIFIED NATURAL GAS SPECIALIST.CNM Work Phone: Start: 07-31-2024 Antibody screen KYRA THAKUR Comment on above: Order Comment: Speci men Type: BLOOD SPECIMEN Ordering Facility: [facility] Address: [address] [place] [address] Performed By: #### T SPN #### [facility] CLIA [id number] [address] [place] [address] [place] Start: 07-31-2024 Us uterus l imited 1/> fetuses Annie Thakur LIQUIFIED NATURAL GAS SPECIALIST.CNM Work Phone: Start: 05-24-2022 Antibody screen SAMANTHA [place] [facility] Start: 04-23-2022 Basic metabolic 2000 panel [...] ant neoplasm of cervix Cervical Cancer Screening [facility] Start: 07-31-2027 Screening for malign ant neoplasm of cervix Cervical Cancer Screening [facility] Start: 03-18-2025 End: 03-18-2025 Patient encounter procedure OB/Gynecology Comment on above: NST NST only Start: 03-17-2025 Influenza vaccination C [facility] Start: 03-14-2025 End: 03-14-2025 Patient encounter procedure Maternal Medicine Comment on above: Growth Sweep Start: 03-13-2025 Nonstress test [facility] Start: 03-13-2025 Obstetric monitoring [facility] Start: 03-13-2025 Vital signs measurements [facility] Start: 03-13-2025 [facility] Start: 03-13-2025 Patient discharge [facility] Start: 03-11-2025 End: 03-11-2025 Patient encounter procedure 03/11/2025 10:30 AM EDT Routine Office Visit OB/Gynecology [address] [place] [address] Khadra Mancini APRN.CN [address] [place] [address] OB OB/Gynecology Comment on above: OB Start: 03-07-2025 End: 03-07-2025 Patient encounter procedure 03/07/2025 1:15 PM EDT Routine Office Visit OB/Gynecology [address] [place] [address] Annie Thakur APRN.CN [address] [place] [address] membrane sweep/OK per CP OB/Gynecology Comment on above: membrane sweep/OK pe r CP Start: 03-05-2025 End: 03-05-2025 Patient encounter procedure 03/05/2025 9:00 AM EDT Routine Office Visit OB/Gynecology [address] [place] [address] Annie Thakur APRN.CNCandice [address] [place] [address] OB OB/Gynecology Comment on above: OB Start: 02-25-2025 End: 02-25-2025 Patient encounter procedure 02/25/2025 8:00 AM EDT Routine Office Visit OB/Gynecology [address] [place] [address] Khadra Mancini APRN.CNCandice [address] [place] [address] OB OB/Gynecology Comment on above: OB Start: 02-18-2025 End: 02-18-2025 Patient encounter procedure 02/18/2025 10:30 AM EDT Routine Office Visit OB/Gynecology [address] [place] [address] Khadra Mancini APRN.CNM [address] [place] [address] OB OB/Gynecology Comment on above: OB Start: 02-11-2025 End: 02-11-2025 Patient encounter procedure 02/11/2025 8:40 AM EDT Routine Office Visit OB/Gynecology [address] [place] [address] Chinyere Friend MD [address] [place] [address] OB OB/Gynecology Comment on above: OB Start: 01-28-2025 End: 01-28-2025 Patient encounter procedure 01/28/2025 8:30 AM EDT Routine Office Visit OB/Gynecology [address] [place] [address] Arthur Conklin MD [address] [place] [address] OB OB/Gynecology Comment on above: OB Start: 01-14-2025 End: 01-14-2025 Patient encounter procedure 01/14/2025 8:00 AM EDT Routine Office Visit OB/Gynecology [address] [address] Khadra Mancini APRN.CNM [address] [place] [address] OB OB/Gynecology Comment on above: OB Start: 12-31-2024 End: 12-31-2024 Patient encounter procedure 12/31/2024 8:00 AM EDT Routine Office Visit OB/Gynecology [address] [place] [address] Khadra Mancini APRN.CNM [address] [place] [address] OB OB/Gynecology Comment on above: OB Start: 12-17-2024 End: 12-17-2024 Patient encounter procedure 12/17/2024 10:00 AM EDT Routine Office Visit OB/Gynecology [address] [place] [address] Khadra aMncini APRN.CNM [address] [place] [address] OB OB/Gynecology Comment on above: OB Start: 12-17-2024 End: 12-17-2024 ambulatory 12/17/2024 9:45 AM EDT Results Only Kaylan Antonywn [facility] [address] [place] [address] Glucose Test [facility] Comment on above: Glucose Test Start: 11-19-2024 End: 02-18-2025 ANEMIA REFLEX PANEL ANEMIA REFLEX PANEL Lab Routine Screening for diabetes mellitus Expected: 11/19/2024, Expires: 02/18/2025 [facility] Comment on above: Expected: 11/19/2024 , Expires: 02/18/2025 Start: 11-19-2024 End: 11-19-2025 GESTATIONAL GLUCOSE SCREEN, 1-HOUR, 50 GRAM, NON-FASTING GESTATIONAL GLUCOSE SCREEN, 1-HOUR, 50 GRAM, NON-FASTING Lab Routine Screening for diabetes mellitus Expected: 11/19/2024, Expires: 11/19/2025 [facility] Work Phone: Comment on above: Expected: 11/19/2024 , Expires: 11/19/2025 Start: 11-19-2024 End: 11-19-2025 SYPHILIS TREPONEMAL W/REFLEX SYPHILIS TREPONEMAL W/REFLEX Lab Routine Screening for diabetes mellitus Expected: 11/19/2024, Expires: 11/19/2025 [facility] Comment on above: Expected: 11/19/2024 , Expires: 11/19/2025 Start: 11-19-2024 End: 11-19-2024 Patient encounter procedure 11/19/2024 11:15 AM EDT Routine Office Visit OB/Gynecology [address] [place] [address] Khadra Mancini APRN.CNM [address] [place] [address] OB OB/Gynecology Comment on above: OB Start: 10-23-2024 End: 10-23-2024 Patient encounter procedure 10/23/2024 9:45 AM EDT Routine Office Visit OB/Gynecology [address] [place] [address] Annie Thakur APRN.CNCandice [address] [place] [address] Anatomy/OB OB/Gynecology Comment on above: Anatomy/OB Start: 10-23-2024 End: 10-23-2024 Patient encounter procedure 10/23/2024 8:30 AM EDT Routine Office Visit Maternal Medicine [address] [place] [address] Anatomy/OB Maternal Medicine Comment on above: Anatomy/OB Start: 09-24-2024 End: 09-24-2024 Patient encounter procedure 09/24/2024 9:45 AM EDT Routine Office Visit OB/Gynecology [address] [place] [address] Khadra Mancini APRN.CNM [address] [place] [address] OB Routine OB/Gynecology Comment on above: OB Routine Start: 08-28-2024 End: 08-28-2024 Patient encounter procedure Maternal Medicine Comment on above: Nuchal Start: 07-31-2024 End: 10-30-2024 ANEMIA REFLEX PANEL [facility] Work Phone: Comment on above: Expected: 07/31/2024 , Expires: 10/30/2024 Start: 07-31-2024 End: 10-30-2024 Hemoglobin A1c in Blood [facility] Comment on above: Expected: 07/31/2024 , Expires: 10/30/2024 Start: 07-31-2024 End: 10-30-2024 Hepatitis B virus surface Ag [Presence] in Serum [facility] Comment on above: Expected: 07/31/2024 , Expires: 10/30/2024 Start: 07-31-2024 End: 10-30-2024 Hepatitis C virus Ab [Presence] in Serum [facility] Comment on above: Expected: 07/31/2024 , Expires: 10/30/2024 Start: 07-31-2024 End: 10-30-2024 HIV 1+2 Ab [Presence] in Serum or Plasma by Immunoassay [facility] Comment on above: Expected: 07/31/2024 , Expires: 10/30/2024 Start: 07-31-2024 End: 07-31-2025 OBSTETRIC ULTRASOUND WHI OBSTETRIC ULTRASOUND WHI Anc Imaging Routine Encounter for supervision of normal in multigravida 8 weeks gestation of Expected: 07/31/2024, Expires: 07/31/2025 [facility] Comment on above: Expected: 07/31/2024 , Expires: 07/31/2025 Start: 07-31-2024 End: 10-30-2024 RUBELLA IGG ANTIBODY [facility] Comment on above: Expected: 07/31/2024 , Expires: 10/30/2024 Start: 07-31-2024 End: 10-30-2024 SYPHILIS TREPONEMAL W/REFLEX [facility] Comment on above: Expected: 07/31/2024 , Expires: 10/30/2024 Start: 07-31-2024 End: 10-30-2024 TYPE + SCREEN [facility] Comment on above: Expected: 07/31/2024 , Expires: 10/30/2024 Start: 05-19-2024 Screening for malign ant neoplasm of cervix Cervical Cancer Screening [facility] Start: 09-01-2024 Covid-19 Vaccine ( season) Covid-19 Vaccine ( season) [facility] Start: 03-17-2024 Influenza vaccination Influenza Vacc ine (#1) [facility] Start: 01-18-2024 Wellness Exam Wellness Exam [facility] Start: 04-27-2022 End: 04-27-2022 ambulatory 04/27/2022 OB Initial Visit art history instructor Max Lau, LIQUIFIED NATURAL GAS SPECIALIST [facility] [address] [place] [address] [facility] Start: 02-14-2022 Refusal of treatment by patient INFLUENZA VACCINE [facility] Start: 2021 HPV Vaccine (1 - 3-d ose SCDM series) HPV Vaccine (1 - 3-dose SCDM series) [facility] Start: 11-26-2019 COTEST / HPV COTEST / HPV [facility] Start: 11-26-2015 CERVICAL CANCER SCREENING CERVICAL CANCER SCREENING [facility] Start: 11-26-2015 Microscopic observat ion [Identifier] in Cervix by Cyto stain PAP SMEAR [facility] Start: 11-26-2015 Screening for malign ant neoplasm of cervix Cervical Cancer Screening [facility] Start: 2013 DTaP/Tdap/Td VACCINE S (1 - Tdap) DTaP/Tdap/Td VACCINES (1 - Tdap) [facility] Start: 2013 Hepatitis B Vaccine (1 of 3 - 19+ 3-dose series) Hepatitis B Vaccine (1 of 3 - 19+ 3-dose series) [facility] Start: 2013 Third diphtheria, tetanus and acellular pertussis (DTaP) vaccination DTaP,Tdap,and Td Vaccine (1 - Tdap) [facility] Start: 2013 Urine microalbumin profile DTaP,Tdap,Td Vaccine (1 - Tdap) [facility] Start: 2012 Anxiety Screening Anxiety Screening [facility] Start: 2012 Depression Screening Depression Scre ening [facility] Start: 2012 HEPATITIS C SCREENING HEPATITIS C SC REENING [facility] Start: 2009 HIV SCREENING HIV SCREENING [facility] Start: 1997 ANNUAL PREVENTIVE PHYSICAL (INCLUDES MAAP) ANNUAL PREVENTIVE PHYSICAL (INCLUDES MAAP) [facility] Start: 05-28-1995 COVID-19 VACCINE (#1) COVID-19 VACCI NE (#1) [facility] Start: 1994 HEPATITIS B VACCINES (1 of 3 - 3-dose series) HEPATITIS B VACCINES (1 of 3 - 3-dose series) [facility] Bacteria identified in Urine by Culture BACTERIAL CULTURE, URINE Microbiology Routine Encounter for supervision of normal in multigravida 8 weeks gestation of 07/31/2024 9:53 AM [facility] Chlamydia trachomatis+Neisseria gonorrhoeae DNA [Presence] in Unspecified specimen by MICHAEL with probe detection GONORRHEA/CHLAMYDIA NAAT Lab Routine Encounter for supervision of normal in multigravida 8 weeks gestation of 07/31/2024 9:53 AM [facility] nonstress test NON-S TRESS TEST Procedures Routine Encounter for supervision of other normal in third trimester (HCC) 40 weeks gestation of (HCC) Ordered: 03/11/2025 [facility] Comment on above: Ordered: 03/11/2025 HIGH RISK HUMAN PAPILLOMA VIRUS (HPV), PCR FOR DETECTION AND GENOTYPING HIGH RISK HUMAN PAPILLOMA VIRUS (HPV), PCR FOR DETECTION AND GENOTYPING Lab Routine Encounter for supervision of normal in multigravida 8 weeks gestation of 07/31/2024 9:53 AM [facility] End: 02-23-2026 OBSTETRIC ULTRASOUND WHI OBSTETRIC ULTRASOUND WHI Anc Imaging Routine Encounter for supervision of other normal in third trimester (HCC) 40 weeks gestation of (HCC) Once per month for 3 Occurrences starting 03/11/2025 until 02/23/2026 [facility] Work Phone: Comment on above: Once per month for 3 Occurrences starting 03/11/2025 until 02/23/2026 PAP TEST PAP TEST Lab Emerson borjas Encounter for supervision of normal in multigravida 8 weeks gestation of 07/31/2024 9:53 AM [facility] Patient Education Kick Counts ED False Labor OB Triage: Return to Hospital or Notify Physician if you Experience: [facility] Work Phone: ROUTINE, GR OUP B STREPTOCOCCUS BY PCR ROUTINE, GROUP B STREPTOCOCCUS BY PCR Microbiology Routine Encounter for supervision of other normal in third trimester (HCC) 02/11/2025 9:00 AM EDT [facility] Work Phone: URINE OB DIP B/O URINE OB DIP B/ O Lab Routine 34 weeks gestation of ([facility]) Encounter for supervision of other normal in third trimester ([facility]) Ordered: 01/28/2025 [facility] Work Phone: Comment on above: Ordered: 01/28/2025 Immunizations Immunization Date Immunization Notes Care Provider Musa chamorro 05-21-2018 influenza virus vacc ine, unspecified formulation Ling Daly LIQUIFIED NATURAL GAS SPECIALIST-COMPLIANCE PROFESSIONAL Work Phone: [facility] Payers Date Payer Category Payer Self-pay 2022 Managed Care (Private) [facility] [employer] [id number] 2022 Medicaid [id number] 2022 Medicaid [id number] 2022 Unknown [id number] 2020 Private Health Insurance [id number] 2014 Unknown [id number] 1994 Unknown [id number]. 201 1994 Unknown [id number] [id number]. 201 1994 Unknown [id number] .[id number]. [address] [facility] PLUS [id number] Effective for all dates [address] [address] [place] [address] EPO [id number] Unknown [id number] [id number]. 246 Unknown [id number] 2.16840.1.180291.3.579.2. 246 Unknown [id number] 2.16.840.1.022669.3.579.2. 246 Unknown [id number] 2.16840.1.754162.3.579.2. 246 Unknown [id number] 2.16840.1.241232.3.579.2. 246 Unknown [id number] 2.16840.1.974795.3.579.2. 246 Unknown [id number] 2.840.1.459669.3.579.2. 246 Unknown [id number] 2.840.1.816468.3.579.2. 246 Unknown [id number] 2.16840.1.039810.3.579.2. 246 Unknown [id number] 2.16.840.1.307879.3.579.2. 246 Unknown [id number] 2.16840.1.304702.3.579.2. 246 Unknown [id number] 2.840.1.848735.3.579.2. 246 Unknown [id number] 2.840.1.539542.3.579.2. 246 Unknown [id number] 2.840.1.329702.3.579.2. 246 Unknown [id number] Unknown [id number] Unknown [id number] Unknown [id number] Unknown [id number]. 462 Social History Date Type Detail Facility Start: 02-02-2011 End: 04-12-2022 Tobacco smoking status NHIS Never smoked tobacco [facility] Start: 02-02-2011 End: 04-12-2022 Tobacco use and exposure Smokeless tobacco non-user [facility] Start: 04-23-2022 End: 03-07-2025 Alcohol intake Ex-drinker (finding) [facility] Start: 1995 Sex Assigned At Not on file P [facility] Start: 04-13-2022 End: 04-23-2022 Exposure to SARS-CoV-2 (event) Not sure [facility] Start: 10-25-2023 Alcoholic beverage intake Curr ent non-drinker of alcohol (finding) [facility] Start: 10-25-2023 End: 07-31-2024 History of Social function [facility] Start: 10-25-2023 End: 07-31-2024 Tobacco use panel [facility] The thought of jt archer myself has occurred to me Never [facility] Start: 06-17-2012 National Score (1-10 0), lower number is lower risk 60 [facility] Start: 06-15-2024 [facility] Start: 1995 Sex assigned at Female C [facility] Start: 07-30-2024 Gender identity Identifies as female gender (finding) [facility] Start: 07-30-2024 Sexual orientation Heterosexual (evelyne cade) [facility] Goals Date Patient Goal Desired Activity /State Personal health goal Comment on above: Formatting of this n ote might be different from the original. Pt to follow up with a pap smear in 2 mo Personal health goal Functional Status Date Assessment Result Facility 05-18-2021 Are you deaf, or do you have serious difficulty hearing No 05/18/2021 9:50 AM Alana Andrews CMA [facility] Work Phone: 05-18-2021 Are you blind, or do you have serious difficulty seeing, even when wearing glasses No 05/18/2021 9:50 AM Alana Andrews CMA [facility] 05-18-2021 Do you have serious difficulty walking or climbing stairs No 05/18/2021 9:50 AM Alana Andrews CMA [facility] 05-18-2021 Do you have difficul ty dressing or bathing No 05/18/2021 9:50 AM EDT Alana Murphy, ROCIO [facility] 05-18-2021 Because of a physica l, mental, or emotional condition, do you have difficulty doing errands alone such as visiting a physician's office or shopping No 05/18/2021 9:50 AM EDT Alana Murphy, SFDC ARCHITECT [facility] Mental Status Date Assessment Result Facility 05-18-2021 Because of a physica l, mental, or emotional condition, do you have serious difficulty concentrating, remembering, or making decisions No 05/18/2021 9:50 AM EDT Alana Murphy, ROCIO [facility] Clinical Notes 04-23-2022 to 03-14-2025 Quick Notes - Khadra Mancini APRN.[facility] - 03/14/2025 1:40 PM EDTCKhadra salinas APRN.[facility] - 03/14/2025 1:40 PM EDTPrenatal Quick Notes [...] discussed with the Patient or Patient's Authorized Refueler. As applicable, any other physician, advance practice provider, medical student, or other health professional student that will be observing or involved in the sensitive examination for educational or training purposes was discussed with the Patient or Authorized Refueler. The Patient or Authorized Refueler has agreed to proceed with the sensitive examination. ASSESSMENT/PLAN: 1. Encounter for supervision of other normal in third trimester -IOL on 03/21 at 0700 with MAGDIEL Stinson to manage 2. 40 weeks gestation of 3. Multiparity PTL precautions reviewed and when to call Khadra Mancini APRN.CNM [facility] 03-14-2025 History of Presen t illness Narrative [...] Khadra Mancini APRN.CNM documented in this encounter [facility] 03-14-2025 Miscellaneous Notes Formattin g of this [...] discussed with the Patient or Patient's Authorized Refueler. As applicable, any other physician, advance practice provider, medical student, or other health professional student that will be observing or involved in the sensitive examination for educational or training purposes was discussed with the Patient or Authorized Refueler. The Patient or Authorized Refueler has agreed to proceed with the sensitive examination. ASSESSMENT/PLAN: 1. Encounter for supervision of other normal in third trimester -IOL on 03/21 at 0700 with MAGDIEL Stinson to manage 2. 40 weeks gestation of 3. Multiparity PTL precautions reviewed and when to call Khadra Mancini APRN.CNCandice documented in this encounter [facility] 03-14-2025 Note Indication Evaluation of growth, Evaluation [...] survey as detailed below. Recommendations - Per career technical supervisor, NST was performed and was reactive - [...] 5 oz EFW by: Hadlock (HC-AC-FL) Extended Seismograph Supervisor 7.1 mm Extremities / Bony Struc FL [...] 03/14/2025 10:01 AM EDT SEQUENTIAL SCREENINGS The [facility] offers sequential screenings for women who are [...] It will require an appointment with our in shop service technician. This is not an ultrasound performed [...] the above symptoms, contact our office at [phone] and ask to speak with a nurse. After hours, you can call doctors registry at [phone] OR call [facility] at [phone] and ask to have the doctor environment coordinator paged. If you consider this an emergency, dial 5-2-7 or go to your nearest emergency department. NEED HELP? Are you dealing with a violent or abusive relationship? Are you a victim of rape or sexual assult? Call [facility] ([facility] 24 hour Crisis Hotline: 915.677.6674 or 459-212-5259. MANUAL Your Guide to a Healthy manual is now on-line. Visit [email or web address]/HealthyPreg Dayne to download your free copy documented in this encounter [facility] 03-13-2025 History and physi jaxson note [facility] 03-12-2025 Telephone encounter Note 40w4d Patient [...] aware that MAGDIEL and CP are not environment coordinator today. L&D notified. Updated H&P faxed to L&d. Patient lives minutes away from the hospital. Nica Law RN [facility] 03-12-2025 Miscellaneous Notes 40w4d Patient called to [...] aware that MAGDIEL and CP are not environment coordinator today. L&D notified. Updated H&P faxed to L&d. Patient lives minutes away from the hospital. Nica Law RN documented in this encounter [facility] 03-11-2025 Progress note Formatting of t his note might be different from the original. MAGDIEL-S: Yante Banks is a 29 year old female [...] discussed with the Patient or Patient's Authorized Refueler. As applicable, any other physician, advance practice provider, medical student, or other health professional student that will be observing or involved in the sensitive examination for educational or training purposes was discussed with the Patient or Authorized Refueler. The Patient or Authorized Refueler has agreed to proceed with the sensitive [...] RTO in 3 days Khadra Mancini APRN.CNM [facility] 03-11-2025 Miscellaneous Notes MAGDIEL-S: Yanet Banks is [...] discussed with the Patient or Patient's Authorized Refueler. As applicable, any other physician, advance practice provider, medical student, or other health professional student that will be observing or involved in the sensitive examination for educational or training purposes was discussed with the Patient or Authorized Refueler. The Patient or Authorized Refueler has agreed to proceed with the sensitive [...] Khadra Mancini APRN.CNM documented in this encounter [facility] 03-11-2025 Instructions Carli Youngblood MA - 03/11/2025 10:28 AM EDT SEQUENTIAL SCREENINGS The [facility] offers sequential screenings for women who are [...] It will require an appointment with our in shop service technician. This is not an ultrasound performed [...] the above symptoms, contact our office at [phone] and ask to speak with a nurse. After hours, you can call doctors registry at [phone] OR call [facility] at [phone] and ask to have the doctor environment coordinator paged. If you consider this an emergency, dial 9-1- or go to your nearest emergency department. NEED HELP? Are you dealing with a violent or abusive relationship? Are you a victim of rape or sexual assult? Call [facility] ([facility] 24 hour Crisis Hotline: 846.943.6084 or 508-587-0495. MANUAL Your Guide to a Healthy manual is now on-line. Visit [email or web address]/HealthyPregn ancyGuide to download your free copy documented in this encounter [facility] 03-07-2025 Telephone encounter Note Faxed signed angela consent to [facility] 03/07/2025. Erasto Brunson LPN [facility] 03-07-2025 Miscellaneous Notes Faxed signed angela consent to [facility] 03/07/2025. Erasto Brunson LPN documented in this encounter [facility] 03-07-2025 Progress note Formatting of t his [...] or sooner if needed Annie Thakur APRN.CNM [facility] 03-07-2025 Miscellaneous Notes S: Yanet Banks is [...] Annie Thakur APRN.CNM documented in this encounter [facility] 03-07-2025 Instructions Erasto Brunson LPN - 03/07/2025 1:09 PM EDT SEQUENTIAL SCREENINGS The [facility] offers sequential screenings for women who are [...] It will require an appointment with our in shop service technician. This is not an ultrasound performed [...] the above symptoms, contact our office at [phone] and ask to speak with a nurse. After hours, you can call doctors registry at [phone] OR call [facility] at [phone] and ask to have the doctor environment coordinator paged. If you consider this an emergency, dial 9-0-5 or go to your nearest emergency department. NEED HELP? Are you dealing with a violent or abusive relationship? Are you a victim of rape or sexual assult? Call [facility] ([place]) 24 hour Crisis Hotline: 622.634.5692 or 430-033-8847. MANUAL Your Guide to a Healthy manual is now on-line. Visit [email or web address]/HealthyPregn ancyGuide to download your free copy documented in this encounter [facility] 03-05-2025 Progress note Formatting of t his [...] tender ASSESSMENT/PLAN: 1. 39 weeks gestation of ([facility]) - ICD9: V22.2, ICD10: Z3A.39 (primary diagnosis) 2. Encounter for supervision of other normal in third trimester ([facility]) - ICD9: V22.1, - R/B of membrane sweep discussed and questions answered - Desires water - needs to sign consent - Plan is to return to office on Monday for CE with membrane sweep - Labor precautions reviewed and when to call Annie Thakur APRN.CNM [facility] 03-05-2025 Miscellaneous Notes S: Yanet Banks is [...] tender ASSESSMENT/PLAN: 1. 39 weeks gestation of ([facility]) - ICD9: V22.2, ICD10: Z3A.39 (primary diagnosis) 2. Encounter for supervision of other normal in third trimester ([facility]) - ICD9: V22.1, - R/B of membrane sweep discussed and questions answered - Desires water - needs to sign consent - Plan is to return to office on Monday for CE with membrane sweep - Labor precautions reviewed and when to call Annie Thakur APRN.CNM documented in this encounter [facility] 03-05-2025 Instructions Erasto Brunson LPN - 03/05/2025 8:38 AM EDT SEQUENTIAL SCREENINGS The [facility] offers sequential screenings for women who are [...] It will require an appointment with our in shop service technician. This is not an ultrasound performed [...] the above symptoms, contact our office at [phone] and ask to speak with a nurse. After hours, you can call doctors registry at [phone] OR call [facility] at [phone] and ask to have the doctor environment coordinator paged. If you consider this an emergency, dial 9-1-1 or go to your nearest emergency department. NEED HELP? Are you dealing with a violent or abusive relationship? Are you a victim of rape or sexual assult? Call [facility] ([place]) 24 hour Crisis Hotline: 748.842.9923 or 674-042-3788. MANUAL Your Guide to a Healthy manual is now on-line. Visit [email or web address]/HealthyPregn ancyGuide to download your free copy documented in this encounter [facility] 02-25-2025 Note HNO ID: [id number] Author: NIRU CASAREZ MA Service: ? Author Type: Mural Painter Type: Progress Notes Filed: 02/25/2025 14:13 Note Text: POPULATION HEALTH NAVIGATION OUTREACH Action/FYI Water Taxi Ferry Operator updated per documentation. Reason for Outreach Medicaid OB/Peds Care Gaps due: N/A Patient Contacted: Unable or unnecessary to reach patient: assistant banquet manager added Navigation Signature: Niru Birch MA February 25, 2025 12:14 PM [facility] 02-25-2025 History of Presen t illness Narrative POPULATION HEALTH NAVIGATION OUTREACH Action/FYI Water Taxi Ferry Operator updated per documentation. Reason for Outreach Medicaid OB/Peds Care Gaps due: N/A Patient Contacted: Unable or unnecessary to reach patient: [place] assistant banquet manager added Navigation Signature: Niru Birch MA February 25, 2025 12:14 PM documented in this encounter [facility] 02-25-2025 Progress note Formatting of t his [...] RTO in 1 weeks Khadra Mancini APRN.CNM [facility] 02-25-2025 Miscellaneous Notes MAGDIEL-S: Yanet Banks is [...] Khadra Mancini APRN.CNM documented in this encounter [facility] 02-25-2025 Instructions Carli Youngblood MA - 02/25/2025 8:00 AM EDT SEQUENTIAL SCREENINGS The [facility] offers sequential screenings for women who are [...] It will require an appointment with our in shop service technician. This is not an ultrasound performed [...] the above symptoms, contact our office at [phone] and ask to speak with a nurse. After hours, you can call doctors registry at [phone] OR call [facility] at [phone] and ask to have the doctor environment coordinator paged. If you consider this an emergency, dial 7-1-9 or go to your nearest emergency department. NEED HELP? Are you dealing with a violent or abusive relationship? Are you a victim of rape or sexual assult? Call [facility] ([place]) 24 hour Crisis Hotline: 718.123.6071 or 743-994-8374. MANUAL Your Guide to a Healthy manual is now on-line. Visit [facility].org/HealthyPregn ancyGuide to download your free copy documented in this encounter [facility] 02-25-2025 Note Patient Outreach (NE TNAV) YANET BANKS ([id number]) 1995 F Date Time Provider Department 02/25/25 NIRU CASAREZ During your visit today, we recorded the following information about you: Niru Casarez MA 02/25/2025 2:13 PM Signed POPULATION HEALTH NAVIGATION OUTREACH Action/FYI Water Taxi Ferry Operator updated per documentation. Reason for Outreach Medicaid OB/Peds Care Gaps due: N/A Patient Contacted: Unable or unnecessary to reach patient: Vardaman assistant banquet manager added Navigation Signature: Niru Birch MA February [...] Encounter Status:Closed by NIRU CASAREZ on 02/25/25 [facility] 02-11-2025 Progress note Formatting of t [...] was discussed with the patient or authorized floor representative. The patient or authorized floor representative has agreed to proceed with the sensitive examination. @ 36.3 weeks Assessment & Plan Encounter for supervision of other normal in third trimester (HCC) Orders: URINE OB DIP B/O ROUTINE, GROUP B STREPTOCOCCUS BY PCR 36 weeks gestation of (HCC) GBS today Kick counts and labor reviewed RTO weekly Vertex confirmed on bedside US Orders: URINE OB DIP B/O Chinyere Enamorado MD [facility] Work Phone: 02-11-2025 Miscellaneous Notes DM-Pt doing well. Denies vaginal Bleeding, Leaking fluid, or regular Contractions. Pt reports good movement Physical Exam: Gen: female in no apparent distress Abd: soft, Gravid. Non tender to palpation. See flow sheet Participation of a fellow, resident, medical student, or advanced practice provider student in performing the sensitive examination was discussed with the patient or authorized floor representative. The patient or authorized floor representative has agreed to proceed with the sensitive examination. @ 36.3 weeks Assessment & Plan Encounter for supervision of other normal in third trimester (HCC) Orders: URINE OB DIP B/O ROUTINE, GROUP B STREPTOCOCCUS BY PCR 36 weeks gestation of ([facility]) GBS today Kick counts and labor reviewed RTO weekly Vertex confirmed on bedside US Orders: URINE OB DIP B/O Chinyere Enamorado MD documented in this encounter [facility] 02-11-2025 Instructions Melida Le MA - 02/11/2025 8:40 AM EDT SEQUENTIAL SCREENINGS The [facility] offers sequential screenings for women who are [...] It will require an appointment with our in shop service technician. This is not an ultrasound performed [...] the above symptoms, contact our office at [phone] and ask to speak with a nurse. After hours, you can call doctors registry at [phone] OR call [facility] at [phone] and ask to have the doctor environment coordinator paged. If you consider this an emergency, dial -5 or go to your nearest emergency department. NEED HELP? Are you dealing with a violent or abusive relationship? Are you a victim of rape or sexual assult? Call [facility] ([facility] 24 hour Crisis Hotline: 650.763.3597 or 829-683-6357. MANUAL Your Guide to a Healthy manual is now on-line. Visit [facility]org/HealthyPregn ancyGuide to download your free copy documented in this encounter [facility] 01-29-2025 Telephone encounter Note Patient notified and voiced understanding. Lolis Anders RN [facility] 01-29-2025 Miscellaneous Notes Patient notified and voiced [...] Nica Law RN documented in this encounter [facility] 01-28-2025 Telephone encounter Note Agree call if pain is severe, persistent or associated with other symptoms such as bleeding, LOF. For pain in advise warm baths or showers, rest, and Tylenol PRN. If pain does not improve with that can call [facility] Work Phone: 01-28-2025 Telephone encounter Note 34w3d Patient seen in office today and forgot to mention some pain she had on Monday after she was seen by the Chiropractor. Several hours after she had a side line adjustment on Monday she had a sharp pain in her cervix. Pain rate of 7-8. Said it felt much different than [place]. The pain returned again today after [...] out of the office. Nica Law RN [facility] 01-28-2025 Progress note Formatting of t his note might be different from the original. SW- Pt doing well. No regular ctx. No vb, lof. Good FM PE: Gen- NAD, well appearing Abd- Soft, gravid, NT See flowsheet A/p 34 wk gestation - Discussed eating dates in - Discussed upcoming expectations - RTO 2 wks Arthur Conklin DO [facility] 01-28-2025 Miscellaneous Notes SW- Pt doing well. No regular ctx. No vb, lof. Good FM PE: Gen- NAD, well appearing Abd- Soft, gravid, NT See flowsheet A/p 34 wk gestation - Discussed eating dates in - Discussed upcoming expectations - RTO 2 wks Arthur Conklin DO documented in this encounter [facility] 01-28-2025 Instructions Clifton, NiruNATHANAEL - 01/28/2025 8:38 AM EDT SEQUENTIAL SCREENINGS The [facility] offers sequential screenings for women who are [...] It will require an appointment with our in shop service technician. This is not an ultrasound performed [...] the above symptoms, contact our office at [phone] and ask to speak with a nurse. After hours, you can call doctors registry at [phone] OR call [facility] at [phone] and ask to have the doctor environment coordinator paged. If you consider this an emergency, dial 9--1 or go to your nearest emergency department. NEED HELP? Are you dealing with a violent or abusive relationship? Are you a victim of rape or sexual assult? Call [facility] ([place]) 24 hour Crisis Hotline: 911.955.2397 or 549-395-4431. MANUAL Your Guide to a Healthy manual is now on-line. Visit [facility]/HealthyPregn ancyGuide to download your free copy documented in this encounter [facility] 01-14-2025 Progress note Formatting of t his [...] RTO in 2 weeks Khadra Mancini APRN.CNM [facility] 01-14-2025 Miscellaneous Notes MAGDIEL-S: Yanet Banks is [...] when to call RTO in 2 weeks Khadar Mancini APRN.CNM documented in this encounter [facility] 01-14-2025 Instructions Khadra Mancini APRN.CNM - 01/14/2025 [...] an easy pie crust in the food mixer. Add soaked dates to homemade nut butter for a sweet treat. Add dates to eduardo homemade salad dressing. Add dates during easily with these yummy (paleo friendly) bars made from dates. What Is Red Raspberry [place] Tea? Red raspberry leaf tea comes from [...] , and too. How Much Red Raspberry [place] Tea to Drink? With your doctor or as400 administrator s approval, start with 1 cup of [...] because of uterine cramping. Is Red Raspberry [place] Tea the Same as Raspberry [place] Tea? How About Plain Old Raspberry Tea? Sometimes. You really need to look at the ingredients to be sure. Note that there is no difference between red raspberry leaf and raspberry leaf. [employer] or [employer] Raspberry [place] Tea are two good brands. The red [...] outlined in this article. The [employer] www.Circle [employer] I named this 'circuit' after my friend [...] sideways, 2 at a time, (have a yard warehouse worker downstairs of you!), take a walk outside [...] the pelvis. Aziza Amos: Circuit Creator - www.amarilloUltreya Logisticsundbirthcollective.BioDigital Corrie Arevalo, CD, BDT (NICOLE), LCCE, FACCE: Supporting Content - www.corrieAsuumclemente.The Orange Chef Rose Gee: Photography - www.General Cybernetics Pastora Garcia CD/CDT (ALIDA): Print and Wax Blender - www.E[employer]ia [employer] Circuit Masterminds The Senscient Circuit www.Circle [employer]ologics What is my perineum? Your perineum is [...] the above symptoms, contact our office at [phone] and ask to speak with a nurse. After hours, you can call doctors registry at [phone] OR call [facility] at [phone] and ask to have the doctor environment coordinator paged. If you consider this an emergency, dial 8-2-3 or go to your nearest emergency department. NEED HELP? Are you dealing with a violent or abusive relationship? Are you a victim of rape or sexual assult? Call [facility] ([place]) 24 hour Crisis Hotline: 557.717.8750 or 845-595-7237. MANUAL Your Guide to a Healthy manual is now on-line. Visit [facility]org/HealthyPregn ancyGuide to download your free copy documented in this encounter [facility] 01-01-2025 Telephone encounter Note 3rd risk assessment form submitted 01/01/2025. Nica Uriarte RN [facility] 01-01-2025 Miscellaneous Notes 3rd risk assessment form submitted 01/01/2025. Nica Uriarte RN documented in this encounter [facility] 12-31-2024 Progress note Formatting of t his [...] RTO in 2 weeks Khadra Mancini APRN.CNM [facility] 12-31-2024 Miscellaneous Notes MAGDIEL-S: Yanet Banks is [...] Khadra Mancini APRN.CNM documented in this encounter [facility] 12-31-2024 Instructions Khadra Mancini APRN.CNM - 12/31/2024 8:07 AM EDT [facility] [address] [place] [address] [facility] [address] [place] [address] [facility] [address] [place] [address] [facility] [address] [place] [address] [email or web address] [facility] [address] [place] [address] [facility] [address] [facility] [place] [address] [place] [address] [email or web address] Orange Chef [facility] [address], [place] [address] [email or web address] [facility] [phone] [employer] [address] [place] [address] [facility] [address] [address] [facility] [place] office also [phone] [email or web address]-office/ [facility] [phone] [address] [facility] [address] [place] [address] [facility], [address] [address] [email or web address] [facility] [address] [place] [address] [email or web address] SIGNS AND SYMPTOMS OF LABOR 1. Contractions every 10 minutes or more often 2. Clear, pink, or brownish fluid (water) leaking from vagina 3. Feeling that baby is pushing down, pressure 4. Low, dull backache 5. Cramps that feel like a period 6. Cramps with or without diarrhea If you notice any of the above symptoms, contact our office at [phone] and ask to speak with a nurse. After hours, you can call doctors registry at [phone] OR call [facility] at [phone] and ask to have the doctor environment coordinator paged. If you consider this an emergency, dial 9-- or go to your nearest emergency department. NEED HELP? Are you dealing with a violent or abusive relationship? Are you a victim of rape or sexual assult? Call [facility] ([place]) 24 hour Crisis Hotline: 752.237.9866 or 205-844-5505. MANUAL Your Guide to a Healthy manual is now on-line. Visit [facility]org/HealthyPregn ancyGuide to download your free copy documented in this encounter [facility] 12-17-2024 Progress note Formatting of t his [...] RTO in 2 weeks Khadra Mancini APRN.CNM [facility] Work Phone: 12-17-2024 Miscellaneous Notes MAGDIEL-S: Yanet [...] Khadra Mancini APRN.CNM documented in this encounter [facility] 12-17-2024 Instructions Khadra Mancini APRN.CNM - 12/17/2024 [...] the above symptoms, contact our office at [phone] and ask to speak with a nurse. After hours, you can call doctors registry at [phone] OR call [facility] at [phone] and ask to have the doctor environment coordinator paged. If you consider this an emergency, dial 9-1-4 or go to your nearest emergency department. NEED HELP? Are you dealing with a violent or abusive relationship? Are you a victim of rape or sexual assult? Call [facility] ([place]) 24 hour Crisis Hotline: 211.241.7274 or 328-754-6140. MANUAL Your Guide to a Healthy manual is now on-line. Visit [email or web address] ancyGuide to download your free copy documented in this encounter [facility] 11-19-2024 Progress note Formatting of t his [...] when to call RTO in 4 weeks [facility] 11-19-2024 Miscellaneous Notes MAGIDEL-S: Yanet Banks is a 28 year old [...] in 4 weeks documented in this encounter [facility] 11-19-2024 Instructions Raquel Beatty MA - 11/19/2024 11:23 AM EDT SEQUENTIAL SCREENINGS The [facility] offers sequential screenings for women who are [...] It will require an appointment with our in shop service technician. This is not an ultrasound performed [...] the above symptoms, contact our office at [phone] and ask to speak with a nurse. After hours, you can call doctors registry at [phone] OR call [facility] at [phone] and ask to have the doctor environment coordinator paged. If you consider this an emergency, dial 9-1-5 or go to your nearest emergency department. NEED HELP? Are you dealing with a violent or abusive relationship? Are you a victim of rape or sexual assult? Call [facility] ([place]) 24 hour Crisis Hotline: 242.537.3360 or 960-523-6459. MANUAL Your Guide to a Healthy manual is now on-line. Visit [email or web address] ancyGuide to download your free copy documented in this encounter [facility] 10-24-2024 Telephone encounter Note 2nd risk assessment form submitted 10/24/2024. Nica Uriarte RN [facility] 10-24-2024 Miscellaneous Notes 2nd risk assessment form submitted 10/24/2024. Nica Uriarte RN documented in this encounter [facility] 10-23-2024 Progress note Formatting of t his [...] - RTO 4 weeks Annie Thakur APRN.CNM [facility] 10-23-2024 Miscellaneous Notes S: Yanet Banks is [...] Annie Thakur APRN.CNM documented in this encounter [facility] 10-23-2024 Instructions Erasto Brunson LPN - 10/23/2024 8:42 AM EDT SEQUENTIAL SCREENINGS The [facility] offers sequential screenings for women who are [...] It will require an appointment with our in shop service technician. This is not an ultrasound performed [...] the above symptoms, contact our office at [phone] and ask to speak with a nurse. After hours, you can call doctors registry at [phone] OR call [facility] at [phone] and ask to have the doctor environment coordinator paged. If you consider this an emergency, dial 9-1-5 or go to your nearest emergency department. NEED HELP? Are you dealing with a violent or abusive relationship? Are you a victim of rape or sexual assult? Call [facility] ([place]) 24 hour Crisis Hotline: 297.248.3125 or 241-146-2437. MANUAL Your Guide to a Healthy manual is now on-line. Visit [email or web address] ancyGuide to download your free copy documented in this encounter [facility] 09-24-2024 Progress note Formatting of t his [...] RTO in 4 weeks Khadra Mancini APRN.CNM [facility] Work Phone: 09-24-2024 Miscellaneous Notes MAGDIEL-S: Yanet [...] Khadra Mancini APRN.CNM documented in this encounter [facility] 09-24-2024 Instructions Rodo Singleton MA - 09/24/2024 9:34 AM EDT SEQUENTIAL SCREENINGS The [facility] offers sequential screenings for women who are [...] It will require an appointment with our in shop service technician. This is not an ultrasound performed [...] the above symptoms, contact our office at [phone] and ask to speak with a nurse. After hours, you can call [employer] registry at [phone] OR call [facility] at [phone] and ask to have the doctor environment coordinator paged. If you consider this an emergency, dial 9-1- or go to your nearest emergency department. NEED HELP? Are you dealing with a violent or abusive relationship? Are you a victim of rape or sexual assult? Call [facility] ([place]) 24 hour Crisis Hotline: 157.241.8477 or 976-167-9803. MANUAL Your Guide to a Healthy manual is now on-line. Visit [email or web address] ancyGuide to download your free copy documented in this encounter [facility] 08-28-2024 Progress note Formatting of t his [...] - RTO 4 weeks Annie Thakur APRN.CNM [facility] 08-28-2024 Miscellaneous Notes S: Yanet Banks is [...] Annie Thakur APRN.CNM documented in this encounter [facility] 08-28-2024 Instructions Rodo Singleton MA - 08/28/2024 9:20 AM EST SEQUENTIAL SCREENINGS The [facility] offers sequential screenings for women who are [...] It will require an appointment with our in shop service technician. This is not an ultrasound performed [...] the above symptoms, contact our office at [phone] and ask to speak with a nurse. After hours, you can call doctors registry at [phone] OR call [facility] at [phone] and ask to have the doctor environment coordinator paged. If you consider this an emergency, dial 9-1-3 or go to your nearest emergency department. NEED HELP? Are you dealing with a violent or abusive relationship? Are you a victim of rape or sexual assult? Call [facility] ([facility] 24 hour Crisis Hotline: 378.979.8825 or 533-501-0764. MANUAL Your Guide to a Healthy manual is now on-line. Visit [email or web address]/HealthyPregn ancyGuide to download your free copy documented in this encounter [facility] 08-01-2024 Telephone encounter Note 1st risk assessment form submitted 08/01/24 Shi Medley RN [facility] 08-01-2024 Miscellaneous Notes 1st risk assessment form submitted 08/01/24 Shi Medley RN documented in this encounter [facility] 07-31-2024 Progress note Formatting of t his note might be different from the original. Patient is here for NOB. See progress note. Annie Thakur APRN.CNM [facility] 07-31-2024 Miscellaneous Notes Patient is here for NOB. See progress note. Annie Thakur APRN.CNM documented in this encounter [facility] 07-30-2024 Note HNO ID: [id number] Author: ANNIE THAKUR APRN.CNM Service: ? Author Type: Surgical Aides Teacher Type: Progress Notes Filed: 07/31/2024 10:13 Note [...] following (please check all that apply)? Surgical Aides Teacher care Social History: Do you have any [...] harming myself has occurred to me. 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 (Pat (more content not included)... [facility] 07-30-2024 History of Presen t illness [...] for delivery: Have you had a prior slaas between 20w and 36w6d? No How many [...] following (please check all that apply)? Surgical Aides Teacher care Social History: Do you have any [...] harming myself has occurred to me. 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 As applicable, any other physician, advance practice provider, medical student, or other health professional student that will be observing or involved in the sensitive examination for educational or training purposes was discussed with the Patient or Authorized Refueler. The Patient or Authorized Refueler has agreed to proceed with the sensitive [...] Your guide to a health and the Nurse Supervisor. Reviewed midwifery and program trainer services that are available. 2) Screening: Hemoglobin [...] NITISH Thakur APRN.CNM documented in this encounter [facility] 07-30-2024 Instructions Erasto Brunson LPN - 07/30/2024 3:46 PM EST Please select the following link to access the [facility] Your Guide to a Healthy . [email or web address] Please select the following link to access the [facility] Your Guide to a Healthy . [email or web address] documented in this encounter [facility] 07-29-2024 Telephone encounter Note Last visit- 10/25/23 Last refill- 11/22/23 [facility] 07-29-2024 Miscellaneous Notes Last visit- 10/25/23 Last refill- 11/22/23 documented in this encounter [facility] 10-25-2023 Note Encounter Department : [facility]IMARY CARE, A SERVICE OF [facility] Progress Notes by BRYAN Go at 10/25/2023 7:40 AM Author: BRYAN GoService: -Author Type: Nurse Practitioner Filed: 10/25/2023 9:31 AMEncounter Date: 10/25/2023Status: Signed Air Conditioner Installer Helper: BRYAN Go (Nurse Practitioner) Yanet Banks Age: [...] She is requesting to return back to [facility] as before. She is aware that [...] Medication List: Current Outpatient Medications Ordered in [facility] MedicationSigDispenseRefill -etonogestreL-ethinyl estradioL (NUVARING) 0.12-0.015 mg/24 hr vaginal ringInsert vaginally and leave in place for 3 consecutive weeks, then remove for 1 week.1 each0 No current [facility]-ordered facility-administered medications on file. Allergies: Allergies AllergenReactions -AzithromycinHives and Diarrhea -Pertussis VaccinesHives Visit Vitals BP120/78 (Ortho BP Site: Left Upper Arm, Ortho BP Position: Sitting, Ortho BP Cuff Size: Regular Adult) Pulse(!) 56 Temp97.8 ?F (36.6 ?C) Resp16 Wt114 lb 8 oz (51.9 kg) XkL0858% BMI21.63 kg/m? Physical Exam: Physical Exam Vitals [...] Assessment and Pl (more content not included)... [facility] 07-27-2023 Note Encounter Department : [facility], A SERVICE OF [facility] Progress Notes by Maryann Mathias MD at 07/27/2023 10:20 AM Author: MENDOZA Lezamaervice: -Author Type: Physician Filed: 07/27/2023 12:42 PMEncounter Date: 07/27/2023Status: Signed Air Conditioner Installer Helper: Maryann Mathias MD (Physician) Yanet Banks Age: [...] Medication List: Current Outpatient Medications Ordered in [facility] MedicationSigDispenseRefill -cephALEXin (KEFLEX) 500 mg capsuleTake 1 capsule (500 mg total) by mouth in the morning and 1 capsule (500 mg total) at noon and 1 capsule (500 mg total) in the evening. Do all this for 7 days.21 capsule0 -norethindrone (KRIS) 0.35 mg tabletTake 1 tablet (0.35 mg total) by mouth daily.28 [id number] No current [facility]-ordered facility-administered medications on file. Allergies: Allergies AllergenReactions -AzithromycinHives and Diarrhea -Pertussis VaccinesHives Visit Vitals BP106/71 Pulse78 Wt116 lb 1.6 oz (52.7 kg) ZtQ126% BMI21.94 kg/m? Physical Exam: Physical Exam Vitals [...] unspecified etiology (Primary) Comments: Likely viral. Continue knzb-lfd-mwzcqnh symptomatic treatment Orders: - POCT Rapid Strep Test Mastalgia Comments: Likely clogged milk duct. Continue massage. Warm moist heat. Antibiotics only if she notices redness or warmth Other orders - cephALEXin (KEFLEX) 500 mg capsule Dispense: 21 capsule; Refill: 0 Electronically Signed by: Maryann Mathias MD, 07/27/2023 12:42 PM [facility] 01-16-2023 Note Encounter Department : [facility], A SERVICE OF [facility] Progress Notes by BRYAN Go at 01/16/2023 9:20 AM Author: BRYAN GoService: -Author Type: Nurse Practitioner Filed: 01/16/2023 2:34 PMEncounter Date: 01/16/2023Status: Signed Air Conditioner Installer Helper: BRYAN Go (Nurse Practitioner) Yanet Banks Age: [...] Medication List: Current Outpatient Medications Ordered in [facility] MedicationSigDispenseRefill -norethindrone (KRIS) 0.35 mg tabletTake 1 tablet (0.35 mg total) by mouth daily.28 [id number] No current [facility]-ordered facility-administered medications on file. Allergies: Allergies AllergenReactions -AzithromycinHives and Diarrhea -Pertussis VaccinesHives Visit Vitals BP108/70 (Ortho BP Site: Left Upper Arm, Ortho BP Position: Sitting, Ortho BP Cuff Size: Adult) Pulse68 Temp97.4 ?F (36.3 ?C) Resp16 Wt120 lb 4.8 oz (54.6 kg) RyR657% BMI22.73 kg/m? Physical Exam: Physical Exam Vitals [...] regimen is e (more content not included)... [facility] 11-19-2022 Note 11/19/22 1100 History Consult Follow-up;Discharge teaching Pt states baby well and with good frequency. Reports latch is improving. Discharge teaching reviewed/complete. Card given. No questions at this time. [facility] 11-19-2022 Note @HOSPITAL SUMMARY AT DISCHARGE [...] 7.1 oz) ADDITIONAL DIAGNOSES / COMMENTS: none [facility] 11-19-2022 Note Problem: Constipatio n Goal: [...] Outcome: Progressing Goal: Effective breast-feeding Outcome: Progressing [facility] 11-18-2022 Note Problem: Maternal In jacques Feeding - Ineffective, Risk of Goal: Parent- attachment Outcome: Progressing Goal: Effective breast-feeding Outcome: Progressing [facility] 11-18-2022 Note ICM Progress Note Chart reviewed. ICM available as needed. DC plan: Home Estimated DC Date: November 19, 2022 Electronically signed by: Estefany Joseph RN, OB Outside Food Server, Phone [phone]. Weekday Office Hours: 7:30-4:00. Holiday/Weekends [phone]. For urgent needs between 5p-7p, please call [phone]. If after 7pm, please call [facility] at [phone]. [facility] 11-18-2022 Note Problem: Constipatio n Goal: [...] Outcome: Progressing Goal: Effective breast-feeding Outcome: Progressing [facility] 11-18-2022 Note Problem: Constipatio n Goal: [...] Outcome: Progressing Goal: Effective breast-feeding Outcome: Progressing [facility] 09-12-2022 Note Patient presents for care. [...] w/d speech clear documented in this encounter [facility] 04-23-2022 Emergency department Note Arrived with reports of having diarrhea/vomiting and fever - since this am - pt states that she began feeling bad after eating dinner last night- pt states that she is 9 weeks - denies any vaginal bleeding Temp 101 per pt report - a/o x3 skin w/d speech clear [facility] Evaluation note Diagnosis Nausea vomiting and diarrhea- Primary Nausea with vomiting documented in this encounter [facility] note* Diagnosis Encounter for initial prescription of vaginal ring hormonal contraceptive documented in this encounter [facility] note* Diagnosis Encounter for supervision of normal in multigravida- Primary 8 weeks gestation of state, incidental Multiparity documented in this encounter [facility] note* Diagnosis 12 weeks gestation of - Primary state, incidental Encounter for supervision of other normal in second trimester Multiparity documented in this encounter [facility] note* Diagnosis Encounter for screening for malformation using ultrasound- Primary 12 weeks gestation of state, incidental Encounter for (NT) nuchal translucency scan Other specified screening [facility] Diagnosis Encounter for supervision of other normal in second trimester- Primary 16 weeks gestation of state, incidental documented in this encounter [facility] note* Diagnosis 20 weeks gestation of (HCC)- Primary state, incidental Encounter for supervision of other normal in second trimester (HCC) [facility]* Diagnosis Encounter for anatomic survey (HCC)- Primary Encounter for anatomic survey 20 weeks gestation of (HCC) state, incidental documented [facility] this [facility]* Diagnosis Encounter for supervision of other normal in second trimester (HCC)- Primary 24 weeks gestation of (HCC) state, incidental Screening for diabetes mellitus documented [facility]* Diagnosis Encounter for supervision of other normal in third trimester (HCC)- Primary 28 weeks gestation of (HCC) state, incidental [facility] Diagnosis Encounter for supervision of normal in multigravida (HCC)- Primary 30 weeks gestation of (HCC) state, incidental [facility] Diagnosis Encounter for supervision of other normal in third trimester (HCC)- Primary 32 weeks gestation of (HCC) state, incidental [facility] Diagnosis Encounter for supervision of other normal in third trimester (HCC)- Primary 34 weeks gestation of (HCC) state, incidental [facility] Diagnosis Encounter for supervision of other normal in third trimester (HCC)- Primary 36 weeks gestation of (HCC) state, incidental [facility] Diagnosis Encounter for supervision of other normal in third trimester (HCC)- Primary 38 weeks gestation of (HCC) state, incidental [facility]* Diagnosis 39 weeks gestation of (HCC)- Primary state, incidental Encounter for supervision of other normal in third trimester (HCC) [facility]* Diagnosis 39 weeks gestation of (HCC)- Primary state, incidental Encounter for supervision of other normal in third trimester (HCC) [facility] Diagnosis Encounter for supervision of other normal in third trimester (HCC)- Primary 40 weeks gestation of (HCC) state, incidental Multiparity documented [facility] this [facility]* Diagnosis Onset Date Resolution Status Admit Date 40 weeks gestation of acut e March 13, 2025 1:13am Irregular contractions acute Au 2024 1:13am Labor, prolonged latent phase acute March 13, 2025 1:13am [facility] Work Phone: Evaluation note* Diagnosis Post-term , 40-42 weeks of gestation (HCC)- Primary Post term , unspecified episode of care 40 weeks gestation of (HCC) state, incidental [facility]* Diagnosis Encounter for supervision of other normal in third trimester (HCC)- Primary 40 weeks gestation of (HCC) state, incidental Multiparity [facility] Author Chinyere reyesWVUMedicine [facility] Note Date/Time March 13, 2025 2: 04am [facility] Medical Records Department [address] [place] [address] OB Triage Physician Note 03/13/25 0152 MR#: [id number] Acct: [id number] Name: YANET BANKS Rep #:[id number] : 1995 29 From: Chinyere Lehman MD PCP: Care Physician,No Primary Status :REG CLI Y Location: [address] HPI - General General Date of [...] MD; No Primary Care Physician ~ Signed [facility] Work Phone: Hospital Discharge instructions* Attachments The following attachments cannot be sent through Care Everywhere. * Nausea and Vomiting (Nigerian) * Diarrhea (Nigerian) * Ondansetron, ADULT (Nigerian) [facility] (n[facility]ative)* Diagnostic Procedure Only (Routine) - Authorized Specialty Diagnoses / Procedures Referred By Kristen t Referred To Contact [facility] Diagnoses Encounter for supervision of normal in multigravida 8 weeks gestation of Procedures OBSTETRIC ULTRASOUND WHI US PREG UTERUS AFTER 1ST TRIMEST GESTATION Annie Thakur APRN.CNM [address] [place] [address] [facility] [place] [address] Referral ID Status Reason Start Date Expiration Date Visits Requested Visits Authorized [id number] Authorized Auto-Generat ed Referral 07/31/2024 07/31/2025 1 1 * Diagnostic Procedure Only (Routine) - Authorized Specialty Diagnoses / Procedures Referred By Kristen alston Referred To Contact [facility] Diagnoses Encounter for supervision of normal in multigravida 8 weeks gestation of Procedures OBSTETRIC ULTRASOUND WHI US PREG UTERUS AFTER 1ST TRIMEST GESTATION Annie Thakur APRN.CNM [address] [place] [address] [facility] [place] [address] Referral ID Status Reason Start Date Expiration Date Visits Requested Visits Authorized [id number] Authorized Auto-Generat ed Referral 07/31/2024 07/31/2025 1 1 [facility] ([facility]arrative)No reason for referral information availableWooSycam[facility] Work Phone: Summary Purpose Family History No [...] Referred By Kristen alston Referred To Contact [facility] Diagnoses Encounter for supervision of normal in multigravida 8 weeks gestation of Procedures OBSTETRIC ULTRASOUND WHI US PREG UTERUS AFTER 1ST TRIMEST GESTATION Annie Thakur, ARGENIS.CNM [address] [place] [address] Phone: tel: fax: [facility] [place] [address] Referral ID Status Reason Start Date Expiration Date V isits Requested Visits Authorized [id number] Closed Auto-Generate d Referral 07/31/2024 07/31/2025 1 1 Reason Onset Date Comments Care 09/24/2024 Reason Onset Date Comments Care 10/23/2024 Specialty Diagnoses / Procedures Referred By Kristen alston Referred To Contact [facility] Diagnoses Encounter for supervision of normal in multigravida (HCC) 8 weeks gestation of (HCC) Procedures OBSTETRIC ULTRASOUND WHI US PREG UTERUS AFTER 1ST TRIMEST GESTATION Annie Thakur, ARGENIS.CNM [address] [place] [address] Phone: tel: fax: [facility] [place] [address] Referral ID Status Reason Start Date Expiration Date V isits Requested Visits Authorized [id number] Closed Auto-Generate d Referral 07/31/2024 07/31/2025 1 1 Reason Comments Blood Tester Fowl - Other PRAF Reason Onset Date Comments [...] Referred By Contac t Referred To Contact [facility] Diagnoses Encounter for supervision of other normal in third trimester (HCC) 40 weeks gestation of (HCC) Procedures OBSTETRIC ULTRASOUND WHI US PREG UTERUS AFTER 1ST TRIMEST GESTATION Khadra Mancini APRN.CNCandice [address] [place] [address] Phone: tel: fax: [address] [place] [address] Referral ID Status Reason Start Date Expiration Date V isits Requested Visits Authorized [id number] Closed Auto-Generate d Referral 03/11/2025 03/11/2026 3 [...] Care Teams (unrecognized sec tion and content) 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 Relationship Specialty Start Date End Date Maryann Mathias MD [address] [place] [address] PCP - General Family Practice 04/23/22 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 Relationship Specialty Start Date End Date Maryann Mathias MD [address] [place] [address] PCP - General Family Medicine 12/03/19 [...] section and content) DATE CREATED AUTHOR 11/28/2022 [facility] DATE CREATED AUTHOR AUTHOR'S ORGANIZ ATION 04/09/2023 Provider Locatio ns DATE CREATED AUTHOR AUTHOR'S ORGANIZ ATION 10/26/2023 [facility] DATE CREATED AUTHOR AUTHOR'S ORGANIZ ATION 03/12/2025 [facility] DATE CREATED AUTHOR AUTHOR'S ORGANIZ ATION 03/14/2025 [facility] Source Comments (unrecognize d section and content) In the event this informatio n is protected by the Federal Confidentiality of Alcohol and Drug Abuse Patient Records regulations: The Federal rules restrict any use of the information to criminally investigate or prosecute any alcohol or drug abuse patient.[facility] SystemIn the event this information is protected by the Federal Confidentiality of Alcohol and Drug Abuse Patient Records regulations: The Federal rules restrict any use of the information to criminally investigate or prosecute any alcohol or drug abuse patient.[facility] SystemIn the event this information is protected by the Federal Confidentiality of Alcohol and Drug Abuse Patient Records regulations: The Federal rules restrict any use of the information to criminally investigate or prosecute any alcohol or drug abuse patient.[facility] SystemIn the event this information is protected by the Federal Confidentiality of Alcohol and Drug Abuse Patient Records regulations: The Federal rules restrict any use of the information to criminally investigate or prosecute any alcohol or drug abuse patient.[facility] SystemIn the event this information is protected by the Federal Confidentiality of Alcohol and Drug Abuse Patient Records regulations: The Federal rules restrict any use of the information to criminally investigate or prosecute any alcohol or drug abuse patient.[facility] SystemIn the event this information is protected by the Federal Confidentiality of Alcohol and Drug Abuse Patient Records regulations: The Federal rules restrict any use of the information to criminally investigate or prosecute any alcohol or drug abuse patient.[facility] SystemIn the event this information is protected by the Federal Confidentiality of Alcohol and Drug Abuse Patient Records regulations: The Federal rules restrict any use of the information to criminally investigate or prosecute any alcohol or drug abuse patient.[facility] SystemIn the event this information is protected by the Federal Confidentiality of Alcohol and Drug Abuse Patient Records regulations: The Federal rules restrict any use of the information to criminally investigate or prosecute any alcohol or drug abuse patient.[facility] SystemIn the event this information is protected by the Federal Confidentiality of Alcohol and Drug Abuse Patient Records regulations: The Federal rules restrict any use of the information to criminally investigate or prosecute any alcohol or drug abuse patient.[facility] SystemIn the event this information is protected by the Federal Confidentiality of Alcohol and Drug Abuse Patient Records regulations: The Federal rules restrict any use of the information to criminally investigate or prosecute any alcohol or drug abuse patient.[facility] SystemIn the event this information is protected by the Federal Confidentiality of Alcohol and Drug Abuse Patient Records regulations: The Federal rules restrict any use of the information to criminally investigate or prosecute any alcohol or drug abuse patient.[facility] SystemIn the event this information is protected by the Federal Confidentiality of Alcohol and Drug Abuse Patient Records regulations: The Federal rules restrict any use of the information to criminally investigate or prosecute any alcohol or drug abuse patient.[facility] SystemIn the event this information is protected by the Federal Confidentiality of Alcohol and Drug Abuse Patient Records regulations: The Federal rules restrict any use of the information to criminally investigate or prosecute any alcohol or drug abuse patient.[facility] SystemIn the event this information is protected by the Federal Confidentiality of Alcohol and Drug Abuse Patient Records regulations: The Federal rules restrict any use of the information to criminally investigate or prosecute any alcohol or drug abuse patient.[facility] SystemIn the event this information is protected by the Federal Confidentiality of Alcohol and Drug Abuse Patient Records regulations: The Federal rules restrict any use of the information to criminally investigate or prosecute any alcohol or drug abuse patient.[facility] SystemIn the event this information is protected by the Federal Confidentiality of Alcohol and Drug Abuse Patient Records regulations: The Federal rules restrict any use of the information to criminally investigate or prosecute any alcohol or drug abuse patient.[facility] SystemIn the event this information is protected by the Federal Confidentiality of Alcohol and Drug Abuse Patient Records regulations: The Federal rules restrict any use of the information to criminally investigate or prosecute any alcohol or drug abuse patient.[facility] SystemIn the event this information is protected by the Federal Confidentiality of Alcohol and Drug Abuse Patient Records regulations: The Federal rules restrict any use of the information to criminally investigate or prosecute any alcohol or drug abuse patient.[facility] SystemIn the event this information is protected by the Federal Confidentiality of Alcohol and Drug Abuse Patient Records regulations: The Federal rules restrict any use of the information to criminally investigate or prosecute any alcohol or drug abuse patient.[facility] SystemIn the event this information is protected by the Federal Confidentiality of Alcohol and Drug Abuse Patient Records regulations: The Federal rules restrict any use of the information to criminally investigate or prosecute any alcohol or drug abuse patient.[facility] SystemIn the event this information is protected by the Federal Confidentiality of Alcohol and Drug Abuse Patient Records regulations: The Federal rules restrict any use of the information to criminally investigate or prosecute any alcohol or drug abuse patient.[facility] SystemIn the event this information is protected by the Federal Confidentiality of Alcohol and Drug Abuse Patient Records regulations: The Federal rules restrict any use of the information to criminally investigate or prosecute any alcohol or drug abuse patient.[facility] SystemIn the event this information is protected by the Federal Confidentiality of Alcohol and Drug Abuse Patient Records regulations: The Federal rules restrict any use of the information to criminally investigate or prosecute any alcohol or drug abuse patient.[facility] SystemIn the event this information is protected by the Federal Confidentiality of Alcohol and Drug Abuse Patient Records regulations: The Federal rules restrict any use of the information to criminally investigate or prosecute any alcohol or drug abuse patient.[facility] SystemIn the event this information is protected by the Federal Confidentiality of Alcohol and Drug Abuse Patient Records regulations: The Federal rules restrict any use of the information to criminally investigate or prosecute any alcohol or drug abuse patient.[facility] SystemIn the event this information is protected by the Federal Confidentiality of Alcohol and Drug Abuse Patient Records regulations: The Federal rules restrict any use of the information to criminally investigate or prosecute any alcohol or drug abuse patient.[facility] SystemIn the event this information is protected by the Federal Confidentiality of Alcohol and Drug Abuse Patient Records regulations: The Federal rules restrict any use of the information to criminally investigate or prosecute any alcohol or drug abuse patient.[facility] Goals (unrecognized section and content) Goals may [...] BE BASED ON THE PRIMARY CLINICAL RECORDS. [facility]. provides no warranty or guarantee of the accuracy or completeness of information in this document.
[2025-03-15] MEDS: Oxytocin 15 Units/NS 250ml 15 UNITS/250 ML IV.SOLN 334 UNITS IV (23:54)
[2025-03-16] VITALS (19 sets, daily range): BP systolic 111–146; BP diastolic 72–96; PULSE 57–74; RESP 16; TEMP 36.4–36.9; O2SAT 98–100
--- NOTE | 2025-03-16 00:02 | OB.VAGDELI_ITS ---
Assessment & Plan (1) Vaginal delivery: (2) Lactating mother: (3) Preeclampsia: Maternal Data Information KIA Calculator Estimated Delivery Date Method Current WG Current Estimate 03/08/25 Manual 41w 1d Vaginal Delivery Maternal Presentation Maternal Presentation: Active Labor Vaginal Delivery Information Procedure Performed: Spontaneous Vaginal Delivery Surgeon/Practitioner: Khadra Mancini Date of Procedure: 03/15/25 Pre-Procedure Diagnosis: Active Labor at Term, Preeclampsia Post-Procedure Diagnosis: Type of anesthesia: None Estimated Blood Loss: 200ml Time of Delivery: 23:36 Findings Description of procedure: Progressed to complete with urge to push. Unmedicated. Hands and knees position. of viable male over intact perineum . APGARS 8,9 respectively. head delivered with body immediately forthcoming. Placed on maternal abdomen, strong cry. Mouth and nares suctioned for secretions. Pitocin started for active 3rd stage management. Cord doubly clamped and cut by FOB after pulsations ceased, delayed cord clamping. Placenta delivered intact via bray, 3 vessel cord intact. Perineum inspected and revealed intact degree. Fundus firm and hemostasis achieved. EBL 200ml. Vaginal sweep completed by me, sponge and instrument correct. Mom and baby stable, planning to breastfeed. Family bonding well. notified of delivery. 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
[2025-03-16] MEDS: Oxytocin 15 Units/NS 250ml 15 UNITS/250 ML IV.SOLN 83 UNITS IV (00:25)
--- OUTSIDE RECORDS SUMMARY | 2025-03-16 02:29 | XMS RPT_ITS | CCD ---
Author Organization [facility] Care Team Providers Care Specialty Trimmer Name Role Phone Stew ARROYO, Maryann Harrell [...] Attending Unavailable Fei ARROYO, Dr. Whitlock Attending [facility] er Care Physician, No Primary Primary Care Provider Unavailable Chinyere Enamorado Attending Unavail able Care Physician, No Primary Primary Care Unava ilable Allergies Allergy Classification Reported Allergen(s) Allergy Type Date of Onset Reaction(s) Facility (20 sources) Azithromycin; Translations: [AZITHROMYCIN] Drug Allergy 0 Hives, Diarrhea, GI Upset [facility] (5 sources) Pertussis Vaccines; Translations: [PERTUSSIS VACCINES] Propensity to adverse reactions 2 Hives [facility] (20 sources) Tetanus Vaccines And Toxoid; Translations: [TETANUS VACCINES AND TOXOID] Propensity to adverse reactions 0 [facility] Medications Current Medications Medication Drug Class(es) Dates Sig (Normalized) Sig (Original) 21 day ethinyl estradiol 0.050958 mg/hr / etonogestrel 0.005 mg/hr vaginal system [...] 07/31/2024 07/31/2024 Discontinued (Discontinued by Patient) levonorgestrel 0.501064 mg/hr intrauterine system (1 source) Progestin, Progestin-containin [...] of ; Translations: [32 weeks gestation of ([facility])] Onset: 01-14-2025 Episodic Residual codes; unclassified (1 source) 28 weeks gestation of ; Translations: [28 weeks gestation of ([facility])] Onset: 12-17-2024 Episodic Unclassified (2 sources) Abdominal [...] Facil ity Examination level ultrasound on 03-14-2025 [facility] Radiology Study observation (narrative) [facility] URINE OB DIP B/Oon Glucose Ql (U) Negative Neg mg/dL [facility] Interpretation and review of laboratory results Normal [facility] Protein.monoclonal (U) [Mass/Vol] trace Neg mg/dL [facility] OB Triage Physician Noteon 0 03-13-2025 OB Triage Physician Note [facility] Medical Records Department [address] [place] [address] OB Triage Physician Note 03/13/25 0152 MR#: [id number] Acct: [id number] Name: YANET BANKS Rep #: [id number] : 1995 29 From: Chinyere Enamorado MD PCP: Care Physician,No Primary Status:REG CLI Y Location: NP485-0 HPI - General General Date of Admission: [...] Enamorado MD; No Primary Care Physician Signed [facility] 03-12-2025 [facility] Telephone (OBGYWM) YANET BANKS ([id number]) 1995 F Date Time Provider Department 03/12/25 [...] aware that MAGDIEL and CP are not buckle and button maker today. CORA notified. Updated HANDP faxed to [...] Status:Closed by NICA LAW on 03/12/25 Normal [facility] URINE OB DIP B/Oon Glucose Ql (U) Negative Neg mg/dL [facility] Interpretation and review of laboratory results Normal [facility] Protein.monoclonal (U) [Mass/Vol] Negative Neg mg/dL [facility] CNPNon 03-07-2025 CNPN Telephone (OBGYWM) YANET BANKS ([id number]) 1995 F Date Time Provider Department 03/07/25 ANNIE THAKUR During your visit today, we recorded the following information about you: Erasto Brunson LPN 03/07/2025 3:28 PM Signed Faxed signed water consent to [facility] 03/07/2025. Erasto Brunson LPN Allergies As of [...] Status:Closed by ERASTO BRUNSON on 03/07/25 Normal [facility] URINE OB DIP B/Oon 5 Glucose Ql (U) Negative Neg mg/dL [facility] Interpretation and review of laboratory results Normal [facility] Protein.monoclonal (U) [Mass/Vol] Negative Neg mg/dL [facility] URINE OB DIP B/Oon 5 Glucose Ql (U) Negative Neg mg/dL [facility] Interpretation and review of laboratory results Normal [facility] Protein.monoclonal (U) [Mass/Vol] Negative Neg mg/dL [facility] URINE OB DIP B/Oon 5 Glucose Ql (U) Negative Neg mg/dL [facility] Interpretation and review of laboratory results Normal [facility] Protein.monoclonal (U) [Mass/Vol] Negative Neg mg/dL [facility] ROUTINE, GROUP B ST REPTOCOCCUS BY PCRon 02-11-2025 ROUTINE, GROUP B STREPTOCOCCUS BY PCR Not detected Normal [facility] Comment on above: Performed By: #### L [id number] #### [facility] CLIA [id number] [address] [place] [address] [place] URINE OB DIP B/Oon Glucose Ql (U) Negative Neg mg/dL [facility] Protein.monoclonal (U) [Mass/Vol] Negative Neg mg/dL [facility] CNPNon 01-28-2025 CNPN Telephone (OBGYWM) YANET BANKS ([id number]) 1995 F Date Time Provider Department 01/28/25 [...] Status:Closed by LOLIS ANDERS on 01/29/25 Normal [facility] 01-01-2025 [facility] Telephone ([id number]) YANET BANKS ([id number]) 1995 F Date Time Provider Department 01/01/25 NICA URIARTE [id number] During your visit today, we recorded the [...] MA - Fully Assessed Reason for Visit: Digital Analyst - Other [3602] Cmt: PRAF Prescriptions as of 01/01/2025 - PNV no.95/ferrous fum/folic ac ( ORAL) Take 8 tablets by mouth once daily. Problem List As Of Date 01/01/2025 Noted Resolved Oligomenorrhea [N91.5] 12/08/2009 12/31/2024 Dysmenorrhea [N94.6] 12/08/2009 08/28/2024 Encounter for supervision of normal i*07/31/2024 Multiparity [Z64.1] 07/31/2024 Encounter Status:Closed by NICA URIARTE on 01/01/25 Normal [facility] CBC W Auto Differential pane l (Bld)on 12-17-2024 Basophils (Bld) [#/Vol] 10*3/uL Normal <0.11 [facility] Comment on above: Order Comment: Speci men Type: FLUID SPECIMEN Ordering Facility: [facility] Address: [address] [place] [address] Performed By: #### L [id number] #### [facility] CLIA [id number] [address] [place] [address] [place] Basophils/100 WBC (Bld) 0.3 % Normal [facility] Comment on above: Order Comment: Speci men Type: FLUID SPECIMEN Ordering Facility: [facility] Address: [address] [place] [address] Performed By: #### L [id number] #### [facility] CLIA [id number] [address] [place] [address] [place] Differential cell count method Nom (Bld) Auto Normal [facility] Comment on above: Order Comment: Speci men Type: FLUID SPECIMEN Ordering Facility: [facility] Address: [address] [place] [address] Performed By: #### L [id number] #### [facility] CLIA [id number] [address] [place] [address] [place] Eosinophils (Bld) [#/Vol] 0.11 10*3/uL Normal <0.46 [facility] Comment on above: Order Comment: Speci men Type: FLUID SPECIMEN Ordering Facility: [facility] Address: [address] [place] [address] Performed By: #### L [id number] #### [facility] CLIA [id number] [address] [place] [address] [place] Eosinophils/100 WBC (Bld) 1.5 % Normal [facility] Comment on above: Order Comment: Speci men Type: FLUID SPECIMEN Ordering Facility: [facility] Address: [address] [place] [address] Performed By: #### L [id number] #### [facility] CLIA [id number] [address] [place] [address] [place] Erythrocyte distribution width (RBC) [Ratio] 12.7 % Normal 11.5-15.0 [facility] Comment on above: Order Comment: Speci men Type: FLUID SPECIMEN Ordering Facility: [facility] Address: [address] [place] [address] Performed By: #### L [id number] #### [facility] CLIA [id number] [address] [place] [address] [place] Hematocrit (Bld) [Volume fraction] 37.0 % Normal 36.0-46.0 [facility] Comment on above: Order Comment: Speci men Type: FLUID SPECIMEN Ordering Facility: [facility] Address: [address] [place] [address] Performed By: #### L [id number] #### [facility] CLIA [id number] [address] [place] [address] [place] Hemoglobin (Bld) [Mass/Vol] 13.2 g/dL Normal 11.5-15.5 [facility] Comment on above: Order Comment: Speci men Type: FLUID SPECIMEN Ordering Facility: [facility] Address: [address] [place] [address] Performed By: #### L [id number] #### [facility] CLIA [id number] [address] [place] [address] [place] Immature granulocytes (Bld) [#/Vol] 0.05 10*3/uL Normal <0.10 [facility] Comment on above: Order Comment: Speci men Type: FLUID SPECIMEN Ordering Facility: [facility] Address: [address] [place] [address] Performed By: #### L [id number] #### [facility] CLIA [id number] [address] [place] [address] [place] Immature granulocytes/100 WBC (Bld) 0.7 % Normal [facility] Comment on above: Order Comment: Speci men Type: FLUID SPECIMEN Ordering Facility: [facility] Address: [address] [place] [address] Performed By: #### L [id number] #### [facility] CLIA [id number] [address] [place] [address] [place] Lymphocytes (Bld) [#/Vol] 1.56 10*3/uL Normal 1.00-4.00 [facility] Comment on above: Order Comment: Speci men Type: FLUID SPECIMEN Ordering Facility: [facility] Address: [address] [place] [address] Performed By: #### L [id number] #### [facility] CLIA [id number] [address] [place] [address] [place] Lymphocytes/100 WBC (Bld) 21.3 % Normal [facility] Comment on above: Order Comment: Speci men Type: FLUID SPECIMEN Ordering Facility: [facility] Address: [address] [place] [address] Performed By: #### L [id number] #### [facility] CLIA [id number] [address] [place] [address] [place] MCH (RBC) [Entitic mass] 32.8 pg Normal 26.0-34.0 [facility] Comment on above: Order Comment: Speci men Type: FLUID SPECIMEN Ordering Facility: [facility] Address: [address] [place] [address] Performed By: #### L [id number] #### [facility] CLIA [id number] [address] [place] [address] [place] MCHC (RBC) [Mass/Vol] 35.7 g/dL Normal 30.5-36.0 [facility] Comment on above: Order Comment: Speci men Type: FLUID SPECIMEN Ordering Facility: [facility] Address: [address] [place] [address] Performed By: #### L [id number] #### [facility] CLIA [id number] [address] [place] [address] [place] MCV (RBC) [Entitic vol] 92.0 fL Normal 80.0-100.0 [facility] Comment on above: Order Comment: Speci men Type: FLUID SPECIMEN Ordering Facility: [facility] Address: [address] [place] [address] Performed By: #### L [id number] #### [facility] CLIA [id number] [address] [place] [address] [place] Monocytes (Bld) [#/Vol] 0.54 10*3/uL Normal <0.87 [facility] Comment on above: Order Comment: Speci men Type: FLUID SPECIMEN Ordering Facility: [facility] Address: [address] [place] [address] Performed By: #### L [id number] #### [facility] CLIA [id number] [address] [place] [address] [place] Monocytes/100 WBC (Bld) 7.4 % Normal [facility] Comment on above: Order Comment: Speci men Type: FLUID SPECIMEN Ordering Facility: [facility] Address: [address] [place] [address] Performed By: #### L [id number] #### [facility] CLIA [id number] [address] [place] [address] [place] Neutrophils (Bld) [#/Vol] 5.06 10*3/uL Normal 1.45-7.50 [facility] Comment on above: Order Comment: Speci men Type: FLUID SPECIMEN Ordering Facility: [facility] Address: [address] [place] [address] Performed By: #### L [id number] #### [facility] CLIA [id number] [address] [place] [address] [place] Neutrophils/100 WBC (Bld) 68.8 % Normal [facility] Comment on above: Order Comment: Speci men Type: FLUID SPECIMEN Ordering Facility: [facility] Address: [address] [place] [address] Performed By: #### L [id number] #### [facility] CLIA [id number] [address] [place] [address] [place] Nucleated RBC (Bld) [#/Vol] 10*3/uL Normal <0.01 [facility] Comment on above: Order Comment: Speci men Type: FLUID SPECIMEN Ordering Facility: [facility] Address: [address] [place] [address] Performed By: #### L [id number] #### [facility] CLIA [id number] [address] [place] [address] [place] Nucleated RBC/100 WBC (Bld) [Ratio] 0.0 /100 WBC Normal [facility] Comment on above: Order Comment: Speci men Type: FLUID SPECIMEN Ordering Facility: [facility] Address: [address] [place] [address] Performed By: #### L [id number] #### [facility] CLIA [id number] [address] [place] [address] [place] Platelet mean volume (Bld) [Entitic vol] 9.0 fL Normal 9.0-12.7 [facility] Comment on above: Order Comment: Speci men Type: FLUID SPECIMEN Ordering Facility: [facility] Address: [address] [place] [address] Performed By: #### L [id number] #### [facility] CLIA [id number] [address] [place] [address] [place] Platelets (Bld) [#/Vol] 252 10*3/uL Normal 150-400 [facility] Comment on above: Order Comment: Speci men Type: FLUID SPECIMEN Ordering Facility: [facility] Address: [address] [place] [address] Performed By: #### L [id number] #### [facility] CLIA [id number] [address] [place] [address] [place] RBC (Bld) [#/Vol] 4.02 10*6/uL Normal 3.90-5.20 [place] Comment on above: Order Comment: Speci men Type: FLUID SPECIMEN Ordering Facility: [facility] Address: [address] [place] [address] Performed By: #### L [id number] #### [facility] CLIA [id number] [address] [place] [address] [place] WBC (Bld) [#/Vol] 7.34 10*3/uL Normal 3.70-11.00 [place] Comment on above: Order Comment: Speci men Type: FLUID SPECIMEN Ordering Facility: [facility] Address: [address] [place] [address] Performed By: #### L [id number] #### [facility] CLIA [id number] [address] [place] [address] [place] GESTATIONAL GLUCOSE SCREEN, 1-HOUR, 50 GRAM, NON-FASTINGon 12-17-2024 Glucose [Mass/Vol] 105 mg/dL Normal 74-134 [facility] Comment on above: Order Comment: Speci men Type: FLUID SPECIMEN Ordering Facility: [facility] Address: [address] [place] [address] Result Comment: Claudia [facility] Congress of Obstetricians and Gynecologists (Kasi/Michael) guidelines state a gestational diabetes mellitus positive screen is made, in women not previously diagnosed with overt diabetes, when the 1 hr plasma glucose level is equal to or above 140 mg/dL. The [facility] [employer] [facility] [place] recommends a 135 mg/dL cutoff. Performed By: #### L [id number] #### [facility] CLIA [id number] [address] [place] [address] [place] Reagin and Treponema pallidu m IgG and IgM [Interp]on 12-17-2024 T. pallidum IgG+IgM IA Ql (S) Non-Reactive Normal Nonreactive [facility] Comment on above: Order Comment: Cydney tang Type: BLOOD SPECIMEN Ordering Facility: [facility] Address: [address] [place] [address] Performed By: #### T SPN #### [facility] CLIA [id number] [address] [place] [address] [place] Reagin+T pallidum IgG+IgM Se rPl-Impon 12-17-2024 Reagin and Treponema pallidum IgG and IgM [Interp] Cannot exclude recent Treponemal infection if specimen collected within 7-10 days after appearance of suspect lesions or 2-3 weeks after an exposure. Clinical correlation is required. Normal [facility] Comment on above: Order Comment: Cydney tang Type: BLOOD SPECIMEN Ordering Facility: [facility] Address: [address] [place] [address] Performed By: #### T SPN #### [facility] CLIA [id number] [address] [place] [address] [place] CNPShama 10-24-2024 CNPN Telephone ([id number]) YANET BANKS ([id number]) 1995 F Date Time Provider Department 10/24/24 NICA URIARTE [id number] During your visit today, we recorded the [...] MA - Fully Assessed Reason for Visit: Digital Analyst - Other [3602] Cmt: PRAF Prescriptions as of 10/24/2024 - PNV no.95/ferrous fum/folic ac ( ORAL) Take 8 tablets by mouth once daily. Problem List As Of Date 10/24/2024 Noted Resolved Oligomenorrhea [N91.5] 12/08/2009 Dysmenorrhea [N94.6] 12/08/2009 08/28/2024 Encounter for supervision of normal i*07/31/2024 Multiparity [Z64.1] 07/31/2024 Encounter Status:Closed by NICA URIARTE on 10/24/24 Normal [facility] Examination level ultrasound on 10-23-2024 [...] 12 oz EFW by: Hadlock (HC-AC-FL) Extended Clinic Specialist 6.5 mm CM 3.9 mm 13% Nicolaides [...] normal LVOT view: normal 3-vessel view: normal 6-nzdvze-sppdanh view: normal Heart / Thorax Situs: situs [...] Read By: Geri Wilson M.D. MATERNAL MEDICINE [facility] Radiology Study observation (narrative) [facility] Examination level ultrasound on 08-28-2024 Indication First trimester anatomic survey Impression REMOTE READ The patient is referred for a first trimester anatomy scan including nuchal translucency measurement as clinically indicated. - Single, live, intrauterine . - [place] rump length measurement is consistent with the [...] view: suboptimal 4-chamber view with color: suboptimal 9-thovpj-zliskzx view: suboptimal Abdominal cord insertion: normal Stomach: [...] Read By: Geri Wilson M.D. MATERNAL MEDICINE [facility] Radiology Study observation (narrative) 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 trachomatis+N. gonorrhoea e DNA MICHAEL+probe Ql (Unsp spec)on 07-31-2024 C. trachomatis rRNA MICHAEL+probe Ql (Unsp spec) Not detected Normal Not detected [facility] Comment on above: Order Comment: Speci men Type: FLUID SPECIMEN Ordering Facility: [facility] Address: [address] [place] [address] Performed By: #### L [id number] #### [facility] CLIA [id number] [address] [place] [address] [place] N. gonorrhoeae rRNA MICHAEL+probe Ql (Unsp spec) Not detected Normal Not detected [facility] Comment on above: Order Comment: Speci men Type: FLUID SPECIMEN Ordering Facility: [facility] Address: [address] [place] [address] Performed By: #### L [id number] #### [facility] CLIA [id number] [address] [place] [address] [place] CBC W Auto Differential pane l (Bld)on 07-31-2024 Basophils (Bld) [#/Vol] 10*3/uL Normal <0.11 [facility] Comment on above: Order Comment: Speci men Type: BLOOD SPECIMEN Ordering Facility: [facility] Address: [address] [place] [address] Performed By: #### 5 7021-8 #### [facility] CLIA [id number] [address] [place] [address] [place] Basophils/100 WBC (Bld) 0.3 % Normal [facility] Comment on above: Order Comment: Speci men Type: BLOOD SPECIMEN Ordering Facility: [facility] Address: [address] [place] [address] Performed By: #### 5 7021-8 #### [facility] CLIA [id number] [address] [place] [address] [place] Differential cell count method Nom (Bld) Auto Normal [facility] Comment on above: Order Comment: Speci men Type: BLOOD SPECIMEN Ordering Facility: [facility] Address: [address] [place] [address] Performed By: #### 5 7021-8 #### [facility] CLIA [id number] [address] [place] [address] [place] Eosinophils (Bld) [#/Vol] 0.11 10*3/uL Normal <0.46 [facility] Comment on above: Order Comment: Speci men Type: BLOOD SPECIMEN Ordering Facility: [facility] Address: [address] [place] [address] Performed By: #### 5 7021-8 #### [facility] CLIA [id number] [address] [place] [address] [place] Eosinophils/100 WBC (Bld) 1.4 % Normal [facility] Comment on above: Order Comment: Speci men Type: BLOOD SPECIMEN Ordering Facility: [facility] Address: [address] [place] [address] Performed By: #### 5 7021-8 #### [facility] CLIA [id number] [address] [place] [address] [place] Erythrocyte distribution width (RBC) [Ratio] 11.8 % Normal 11.5-15.0 [facility] Comment on above: Order Comment: Speci men Type: BLOOD SPECIMEN Ordering Facility: [facility] Address: [address] [place] [address] Performed By: #### 5 7021-8 #### [facility] CLIA [id number] [address] [place] [address] [place] Hematocrit (Bld) [Volume fraction] 40.5 % Normal 36.0-46.0 [facility] Comment on above: Order Comment: Speci men Type: BLOOD SPECIMEN Ordering Facility: [facility] Address: [address] [place] [address] Performed By: #### 5 7021-8 #### [facility] CLIA [id number] [address] [place] [address] [place] Hemoglobin (Bld) [Mass/Vol] 14.2 g/dL Normal 11.5-15.5 [facility] Comment on above: Order Comment: Speci men Type: BLOOD SPECIMEN Ordering Facility: [facility] Address: [address] [place] [address] Performed By: #### 5 7021-8 #### [facility] CLIA [id number] [address] [place] [address] [place] Immature granulocytes (Bld) [#/Vol] 0.03 10*3/uL Normal <0.10 [facility] Comment on above: Order Comment: Speci men Type: BLOOD SPECIMEN Ordering Facility: [facility] Address: [address] [place] [id number] Performed By: #### 5 7021-8 #### [facility] CLIA [id number] [address] [place] [address] [place] Immature granulocytes/100 WBC (Bld) 0.4 % Normal [facility] Comment on above: Order Comment: Speci men Type: BLOOD SPECIMEN Ordering Facility: [facility] Address: [address] [place] [address] Performed By: #### 5 7021-8 #### [facility] CLIA [id number] [address] [place] [address] [place] Lymphocytes (Bld) [#/Vol] 2.09 10*3/uL Normal 1.00-4.00 [facility] Comment on above: Order Comment: Speci men Type: BLOOD SPECIMEN Ordering Facility: [facility] Address: [address] [place] [address] Performed By: #### 5 7021-8 #### [facility] CLIA [id number] [address] [place] [address] [place] Lymphocytes/100 WBC (Bld) 26.5 % Normal [facility] Comment on above: Order Comment: Speci men Type: BLOOD SPECIMEN Ordering Facility: [facility] Address: [address] [place] [address] Performed By: #### 5 7021-8 #### [facility] CLIA [id number] [address] [place] [address] [place] MCH (RBC) [Entitic mass] 31.7 pg Normal 26.0-34.0 [facility] Comment on above: Order Comment: Speci men Type: BLOOD SPECIMEN Ordering Facility: [facility] Address: [address] [place] [address] Performed By: #### 5 7021-8 #### [facility] CLIA [id number] [address] [place] [address] [place] MCHC (RBC) [Mass/Vol] 35.1 g/dL Normal 30.5-36.0 [facility] Comment on above: Order Comment: Speci men Type: BLOOD SPECIMEN Ordering Facility: [facility] Address: [address] [place] [address] Performed By: #### 5 7021-8 #### [facility] CLIA [id number] [address] [place] [address] [place] MCV (RBC) [Entitic vol] 90.4 fL Normal 80.0-100.0 [facility] Comment on above: Order Comment: Speci men Type: BLOOD SPECIMEN Ordering Facility: [facility] Address: [address] [place] [address] Performed By: #### 5 7021-8 #### [facility] CLIA [id number] [address] [place] [address] [place] Monocytes (Bld) [#/Vol] 0.48 10*3/uL Normal <0.87 [facility] Comment on above: Order Comment: Speci men Type: BLOOD SPECIMEN Ordering Facility: [facility] Address: [address] [place] [address] Performed By: #### 5 7021-8 #### [facility] CLIA [id number] [address] [place] [address] [place] Monocytes/100 WBC (Bld) 6.1 % Normal [facility] Comment on above: Order Comment: Speci men Type: BLOOD SPECIMEN Ordering Facility: [facility] Address: [address] [place] [address] Performed By: #### 5 7021-8 #### [facility] CLIA [id number] [address] [place] [address] [place] Neutrophils (Bld) [#/Vol] 5.16 10*3/uL Normal 1.45-7.50 [facility] Comment on above: Order Comment: Speci men Type: BLOOD SPECIMEN Ordering Facility: [facility] Address: [address] [place] [address] Performed By: #### 5 7021-8 #### [facility] CLIA [id number] [address] [place] [address] [place] Neutrophils/100 WBC (Bld) 65.3 % Normal [facility] Comment on above: Order Comment: Speci men Type: BLOOD SPECIMEN Ordering Facility: [facility] Address: [address] [place] [address] Performed By: #### 5 7021-8 #### [facility] CLIA [id number] [address] [place] [address] [place] Nucleated RBC (Bld) [#/Vol] 10*3/uL Normal <0.01 [facility] Comment on above: Order Comment: Speci men Type: BLOOD SPECIMEN Ordering Facility: [facility] Address: [address] [place] [address] Performed By: #### 5 7021-8 #### [facility] CLIA [id number] [address] [place] [address] [place] Nucleated RBC/100 WBC (Bld) [Ratio] 0.0 /100 WBC Normal [facility] Comment on above: Order Comment: Speci men Type: BLOOD SPECIMEN Ordering Facility: [facility] Address: [address] [place] [address] Performed By: #### 5 7021-8 #### [facility] CLIA [id number] [address] [place] [address] [place] Platelet mean volume (Bld) [Entitic vol] 9.0 fL Normal 9.0-12.7 [facility] Comment on above: Order Comment: Speci men Type: BLOOD SPECIMEN Ordering Facility: [facility] Address: [address] [place], [place] [address] Performed By: #### 5 7021-8 #### [facility] CLIA [id number] [address] [place] [address] [place] Platelets (Bld) [#/Vol] 312 10*3/uL Normal 150-400 [facility] Comment on above: Order Comment: Speci men Type: BLOOD SPECIMEN Ordering Facility: [facility] Address: [address] [place] [address] Performed By: #### 5 7021-8 #### [facility] CLIA [id number] [address] [place] [address] [place] RBC (Bld) [#/Vol] 4.48 10*6/uL Normal 3.90-5.20 [place] Comment on above: Order Comment: Speci men Type: BLOOD SPECIMEN Ordering Facility: [facility] Address: [address] [place] [address] Performed By: #### 5 7021-8 #### [facility] CLIA [id number] [address] [place] [address] [place] WBC (Bld) [#/Vol] 7.89 10*3/uL Normal 3.70-11.00 [place] Comment on above: Order Comment: Speci men Type: BLOOD SPECIMEN Ordering Facility: [facility] Address: [address] [place] [address] Performed By: #### 5 7021-8 #### [facility] CLIA [id number] [address] [place] [address] [place] HBV surface Ag Ser Qlon 07-17 HBV surface Ag Ql (S) Negative Normal Negative [facility] Comment on above: Order Comment: Speci men Type: BLOOD SPECIMEN Ordering Facility: [facility] Address: [address] [place] [address] Performed By: #### T SPN #### [facility] CLIA [id number] [address] [place] [address] [place] HCV Ab Ser Qlon 07-31-2024 HCV Ab Ql (S) Negative Normal Negative [facility] Comment on above: Order Comment: Speci men Type: BLOOD SPECIMEN Ordering Facility: [facility] Address: [address] [place] [address] Result Comment: The result suggests no evidence of active infection with Hepatitis C virus. Should recent infection be suspected, repeat testing may be considered 4-6 weeks after this draw. Performed By: #### T SPN #### [facility] CLIA [id number] [address] [place] [address] [place] HIGH RISK HUMAN PAPILLOMA RHINA (HPV), PCR FOR DETECTION AND GENOTYPINGon 07-31-2024 HPV 16 Ag Ql (Unsp spec) Not detected Normal Not detected [facility] Comment on above: Order Comment: Speci men Type: FLUID SPECIMEN Ordering Facility: [facility] Address: [address] [place] [address] Performed By: #### L [id number] #### [facility] CLIA [id number] [address] [place] [address] [place] HPV 18 Ag Ql (Unsp spec) Not detected Normal Not detected [facility] Comment on above: Order Comment: Speci men Type: FLUID SPECIMEN Ordering Facility: [facility] Address: [address] [place] [address] Performed By: #### L [id number] #### [facility] CLIA [id number] [address] [place] [address] [place] HPV 31+33+35+39+45+51+5 2+56+58+59+66+68 DNA MICHAEL+probe Ql (Cvx) Not detected Normal Not detected [facility] Comment on above: Order Comment: Speci men Type: FLUID SPECIMEN Ordering Facility: [facility] Address: [address] [place] [address] Result Comment: High Risk HPV Other Type includes HPV types 31, 33, 35, 39, 45, 51, 52, 56, 58, 59, 66 and 68. Performed By: #### L [id number] #### [facility] CLIA [id number] [address] [place] [address] [place] HIV 1+2 Ab IA Qlon 5 HIV 1 and 2 Ab IA.rapid Nom (S/P/Bld) Normal [facility] Comment on above: Order Comment: Speci men Type: BLOOD SPECIMEN Ordering Facility: [facility] Address: [address] [place] [address] Result Comment: Test not indicated. Performed By: #### T SPN #### [facility] CLIA [id number] [address] [place] [address] [place] HIV 1+2 Ab+HIV1 p24 Ag IA Ql Non-Reactive Normal Nonreactive [facility] Comment on above: Order Comment: Speci men Type: BLOOD SPECIMEN Ordering Facility: [facility] Address: [address] [place] [address] Performed By: #### T SPN #### [facility] CLIA [id number] [address] [place] [address] [place] HIV immunoassay testing algorithm interpretation (S/P/Bld) [Interp] Normal [facility] Comment on above: Order Comment: Speci men Type: BLOOD SPECIMEN Ordering Facility: [facility] Address: [address] [place] [address] Result Comment: No e vidence of HIV-1 or HIV-2 infection. Should recent infection be suspected, repeat testing may be considered 2-3 weeks after this draw. [place] Rev. Code 3701.243(E): This information has been [...] Performed By: #### T SPN #### [facility] [place] [id number] [address] [place] [address] [place] HbA1c (Bld)on 07-31-2024 Average glucose Estimated from glycated hemoglobin (Bld) [Mass/Vol] 82 mg/dL Normal [facility] Comment on above: Order Comment: Speci men Type: FLUID SPECIMEN Ordering Facility: [facility] Address: [address] [place] [address] Result Comment: eAG: (Estimated average glucose) is a calculated value from HgbA1c and is community health program representative of the average blood glucose level in the last 2-3 month period. Performed By: #### L [id number] #### [facility] CLIA [id number] [address] [place] [address] [place] HbA1c (Bld) [Mass fraction] 4.5 % Normal 4.3-5.6 [facility] Comment on above: Order Comment: Speci men Type: FLUID SPECIMEN Ordering Facility: [facility] Address: [address] [place] [address] Result Comment: [place] Diabetes Association guidelines indicate that patients with HgbA1c in the range 5.7-6.4% are at increased risk for development of diabetes, and intervention by lifestyle modification may be beneficial. HgbA1c greater or equal to 6.5% is considered diagnostic of diabetes. Performed By: #### L [id number] #### [facility] CLIA [id number] [address] [place] [address] [place] PAP TESTon 07-31-2024 ADEQUACY Satisfactory for interpretation. Normal [facility] Comment on above: Order Comment: Speci men Type: FLUID SPECIMEN Ordering Facility: [facility] Address: [address] [place] [address] Performed By: #### L [id number] #### [facility] CLIA [id number] [address] [place] [address] [place] CASE REPORT Normal [facility] Comment on above: Order Comment: Speci men Type: FLUID SPECIMEN Ordering Facility: [facility] Address: [address] [place] [address] Result Comment: Gyne cologic Cytology Report Case: [id number] Authorizing Provider: Annie Thakur APRN.CNM Collected: 07/31/2024 09:53 AM Ordering Location: OB/Gynecology Received: 07/31/2024 12:21 PM First Screen: Nica Arguello, CT, ASCP Specimen: Pap Test, ThinPrep, Cervix Performed By: #### L [id number] #### [facility] CLIA [id number] [address] [place] [address] [place] CLINICAL HISTORY, CYTOLOGY, ARTIST AGENT Routine Exam Normal [facility] Comment on above: Order Comment: Speci men Type: FLUID SPECIMEN Ordering Facility: [facility] Address: [address] [place] [address] Performed By: #### L [id number] #### [facility] CLIA [id number] [address] [place] [address] [place] FINAL PERFORMING LAB Normal [facility] Comment on above: Order Comment: Speci men Type: FLUID SPECIMEN Ordering Facility: [facility] Address: [address] [place] [address] Result Comment: Tech nical component, blood bank laboratory technologist screening performed at [facility], [address] [place] [address] [place] [address] CLIA# [id number] Diagnostic interpretation performed at [facility], [address] [place], [place] [address] CLIA# [id number] Healthcare Advisory Services Manager: Timi Floyd M.D. Performed By: #### L [id number] #### [facility] CLIA [id number] [address] [place] [address] [place] INTERPRETATION, CYTOLOGY, ARTIST AGENT Normal [facility] Comment on above: Order Comment: Speci men Type: FLUID SPECIMEN Ordering Facility: [facility] Address: [address] [place] [address] Result Comment: Nega tive for intraepithelial lesion or malignancy. Performed By: #### L [id number] #### [facility] CLIA [id number] [address] [place] [address] [place] LMP 06/01/2024 Normal [facility] Comment on above: Order Comment: Speci men Type: FLUID SPECIMEN Ordering Facility: [facility] Address: [address] [place] [address] Performed By: #### L [id number] #### [facility] CLIA [id number] [address] [place] [address] [place] PAP DISCLAIMER COMMENT The Pap Smear is a screening test for cervical cancer. False negative results occur with all screening tests, emphasizing the need for rescreening at recommended intervals, and clinical correlation. Normal [facility] Comment on above: Order Comment: Speci men Type: FLUID SPECIMEN Ordering Facility: [facility] Address: [address] [place] [address] Performed By: #### L [id number] #### [facility] CLIA [id number] [address] [place] [address] [place] PAP DISASSEMBLER PRODUCT COMMENT This specimen has been analyzed by the ThinPrep Imaging System, an automated imaging and review system, which assists the laboratory in evaluating cells on ThinPrep Pap tests. Following automated imaging, selected maki from every slide are reviewed by a blood bank laboratory technologist. Normal [facility] Comment on above: Order Comment: Speci men Type: FLUID SPECIMEN Ordering Facility: [facility] Address: [address] [place] [address] Performed By: #### L [id number] #### [facility] CLIA [id number] [address] [place] [address] [place] POC PULVI MIXER OPERATOR ULTRASOUNDon 07-31-19 25 Indication Viability; confirm [...] Read By: Annie Thakur CNM MATERNAL MEDICINE [facility] Radiology Study observation (narrative) [facility] RUBELLA IGG ANTIBODYon 07-31 RUBELLA IGG AB, QUAL Positive Normal Positive [facility] Comment on above: Order Comment: Speci men Type: FLUID SPECIMEN Ordering Facility: [facility] Address: [address] [place] [address] Result Comment: The result suggests recent or past exposure to Rubella virus or history of Rubella vaccination. Positive result may also be seen due to presence of passively-transferred antibodies. Please correlate with patient's history. Performed By: #### L [id number] #### [facility] CLIA [id number] [address] [place] [address] [place] Reagin and Treponema pallidu m IgG and IgM [Interp]on 07-31-2024 T. pallidum IgG+IgM IA Ql (S) Non-Reactive Normal Nonreactive [facility] Comment on above: Order Comment: Speci men Type: BLOOD SPECIMEN Ordering Facility: [facility] Address: [address] [place] [address] Performed By: #### T SPN #### [facility] CLIA [id number] [address] [place] [address] [place] Reagin+T pallidum IgG+IgM Se rPl-Impon 07-31-2024 Reagin and Treponema pallidum IgG and IgM [Interp] Cannot exclude recent Treponemal infection if specimen collected within 7-10 days after appearance of suspect lesions or 2-3 weeks after an exposure. Clinical correlation is required. Normal [facility] Comment on above: Order Comment: Speci men Type: BLOOD SPECIMEN Ordering Facility: [facility] Address: [address] [place] [address] Performed By: #### T SPN #### [facility] CLIA [id number] [address] [place] [address] [place] TYPE + SCREEN PRENATALon ABO O Normal [facility] Comment on above: Order Comment: Speci men Type: BLOOD SPECIMEN Ordering Facility: [facility] Address: [address] [place] [address] Performed By: #### T SPN #### [facility] CLIA [id number] [address] [place] [address] [place] Rh Nom (Bld) Positive Normal [facility] Comment on above: Order Comment: Speci men Type: BLOOD SPECIMEN Ordering Facility: [facility] Address: [address] [place] [address] Performed By: #### T SPN #### [facility] CLIA [id number] [address] [place] [address] [place] TYPE AND SCREEN EXPIRATION 08/03/2024 23:59 Normal [facility] Comment on above: Order Comment: Speci men Type: BLOOD SPECIMEN Ordering Facility: [facility] Address: [address] [place] [address] Performed By: #### T SPN #### [facility] CLIA [id number] [address] [place] [address] [place] POCT URINE PREGNANCYon 10-24 HCG ( test) Ql (U) [facility] Comment on above: Order Comment: Relea se to patient->Immediate HCG ( test) Ql (U) Negative [facility] Comment on above: Order Comment: Relea se to patient->Immediate POCT RAPID STREP TESTon 07-17 EXPIRATION DATE: [facility] Comment on above: Order Comment: Relea se to patient->Immediate EXPIRATION DATE: 06/06/2024 [facility] Comment on above: Order Comment: Relea se to patient->Immediate LOT NUMBER [facility] Comment on above: Order Comment: Relea se to patient->Immediate LOT NUMBER [id number] [facility] Comment on above: Order Comment: Relea se to patient->Immediate S. pyogenes Ag IA Ql (Unsp spec) Negative [facility] Comment on above: Order Comment: Relea se to patient->Immediate S. pyogenes Ag IA Ql (Unsp spec) [facility] Comment on above: Order Comment: Relea se to patient->Immediate POCT URINE PREGNANCYon 01-16 EXPIRATION DATE: [facility] Comment on above: Order Comment: Relea se to patient->Immediate EXPIRATION DATE: 03/16/2024 [facility] Comment on above: Order Comment: Relea se to patient->Immediate HCG ( test) Ql (U) [facility] Comment on above: Order Comment: Oga se to patient->Immediate HCG ( test) Ql (U) Negative [facility] Comment on above: Order Comment: Jorge se to patient->Immediate LOT NUMBER [id number] [facility] Comment on above: Order Comment: Oga se to patient->Immediate LOT NUMBER [facility] Comment on above: Order Comment: Oga se to patient->Immediate MEDICAL STAFFon 11-19-2022 System Support Technician Authentication Interface Message Text Reports good rest [...] Continue PP care support Teaching Discharge Normal [facility] PATIENT INSTRUCTIONSon 11-19 System Support Technician Authentication Interface Message Text [facility] [phone] Pamper Yourself! Congratulations on the of your [...] be bright red. It will climate change analyst several days to dark red, to brown, to brownish yellow, and then to white. It should not have a bad or foul odor. Let your bleeding be your guide. If you are doing too much at home, your bleeding will increase and become bright red again. This will be your sign to take it easy. mothers often have no periods while baffle mounter. Bottle feeding mothers can expect to have [...] you become (more content not included)... Normal [facility] NOTEon 11-18-2022 System Support Technician Authentication Interface Message Text 11/18/22 0918 History Consult Breastfed Previous Child Yes Breastfed Previous Child for 3-6 months (pumped also) Breasts/Nipples Left Breast Soft;Reported by patient Right Breast Soft;Reported by patient Left Nipple Intact;Tender;Reporte d by patient Right Nipple Intact;Tender;Reporte d by patient Interventions General Interventions [id number];On cue feeding;Assist to awaken Nipple Management Assess [...] with and questions, concerns or assistance needed. [facility] System Support Technician [employer] Interface Message Text 11/18/22 1220 History Consult Patient unavailable;Other/com ment (Pt sleeping) [facility] [email or web address] Interface Message Text 11/18/22 1032 History Consult Other/comment (Pt has visitors at this time and requests that come back later.) [facility] MEDICAL STAFFon 11-18-2022 System Support Technician Authentication Interface Message Text Reports good rest [...] Stable Breast Continue PP care support Teaching [facility] H&Jose 11-17-2022 [employer] Interface Message Text Attestation signed by Sharyn Waldron MD at 11/17/22 3485 I have reviewed this patient's H noted in triage. If persists, will need labs and L [facility] Obstetrics Admission Note Patient Name: Yanet Banks : 1995 11/17/2022 8:12 PM MEDICAL DECISION MAKING: records reviewed. Case discussed with Dr. Waldron, oncology admin Differential Diagnosis:n/a Interventions: NST Assessment/Plan 26 year [...] Final Glucose (more content not included)... Normal [facility] L&D DELIVERYon 11-17-2022 System Support Technician Authentication Interface Message Text [facility] Spontaneous Vaginal Delivery Note Delivery Summary for Yanet Banks : 1995 Information for the patient's : Partha Banks [[id number]] Delivery Information: Date/Time of Delivery: 11/17/2022 8:50 PM By: Normal Spontaneous Vaginal Delivery Clinician: Dustin Benavides Maternal Information: Episiotomy: None Lacerations: None Repair suture: n/a Repair # of packets: 0 Blood loss (ml): 200 Information for the patient's : Partha Banks [[id number]] Information: Living?: Living Presentation/position : Cephalic Left [...] present. Hemostasis assured. Mom and baby well. Space Physicist verified all counts correct. Dr. Waldron notified of . Electronically signed by: Dustin Benavides APRN, 11/17/2022 9:38 PM Normal [facility] PATIENT INSTRUCTIONSon 11-17 System Support Technician Authentication Interface Message Text Thank you for choosing [facility]. It was a pleasure to see you today! Please call [phone] for all your office needs. Your opinion [...] improve your experience. We are available via [employer] messages and phone calls during regular business hours, but if there is an urgent need or you need to be seen after hours (in triage or the ER) please call our after hours number [phone]. You will be connected to the buckle and button maker physician or feather washer. If a hospital visit is recommended please always go to [facility] located at [address] [place] [address]. Getting your test results is easier than ever! There are several ways you could receive results If you are a [employer] user this allows you rapid access to results. Most test results are released within 24 hours and may be viewable to you even before your provider reviews the results, or Clinical staff may call you with any abnormal results to discuss further your plan of care with the provider, or you could receive a letter for normal results. Attention [employer] Users! Want to send us a non urgent message, check your test results, request a medication refill, or schedule an appointment at your convenience? It's fast, safe, and easy. Just log in to [email or web address] and enter your user name and password. If you don't have a user name or password please ask one of our very qualified staff members and they will be happy to assist you in getting signed up. These messages are checked during office hours only. Please still call the office or physician buckle and button maker with any urgent medical issues. For technical support, call If you had labs ordered today you can go to any [facility] lab and walk in with no appointment needed. If any imaging was ordered for you, central scheduling should call you within the week. If you do not hear from them, you can call them at [phone]. Any outpatient referrals with be taken care of by our staff. If you do not hear from their office within 1 week, please call our office at [phone] so we can check on the status for you. We all want to Thank you for choosing [facility]! Normal Provider Locations PATIENT INSTRUCTIONSon 11-09 System Support Technician Authentication Interface Message Text Thank you for choosing [facility]. It was a pleasure to see you today! Please call [phone] for all your office needs. Your opinion [...] improve your experience. We are available via [employer] messages and phone calls during regular business hours, but if there is an urgent need or you need to be seen after hours (in triage or the ER) please call our after hours number [phone]. You will be connected to the buckle and button maker physician or feather washer. If a hospital visit is recommended please always go to [facility] located at [address] [facility] in [place]. Getting your test results is easier than ever! There are several ways you could receive results If you are a [employer] user this allows you rapid access to results. Most test results are released within 24 hours and may be viewable to you even before your provider reviews the results, or Clinical staff may call you with any abnormal results to discuss further your plan of care with the provider, or you could receive a letter for normal results. Attention [employer] Users! Want to send us a non urgent message, check your test results, request a medication refill, or schedule an appointment at your convenience? It's fast, safe, and easy. Just log in to [email or web address] and enter your user name and password. If you don't have a user name or password please ask one of our very qualified staff members and they will be happy to assist you in getting signed up. These messages are checked during office hours only. Please still call the office or physician buckle and button maker with any urgent medical issues. For technical support, call If you had labs ordered today you can go to any [facility] lab and walk in with no appointment needed. If any imaging was ordered for you, central scheduling should call you within the week. If you do not hear from them, you can call them at [phone]. Any outpatient referrals with be taken care of by our staff. If you do not hear from their office within 1 week, please call our office at [phone] so we can check on the status for you. We all want to Thank you for choosing [facility]! Normal Provider Locations PROGRESS NOTESon 11-09-2022 System Support Technician Authentication Interface Message Text Pt presents today for routine OB visit @ 38+1 +FM, no bleeding, no LOF Feeling well overall, ready to meet baby Hurt her back sitting for a long period of time Discussed comfort measures All set for FBBC She has no other questions or concerns S=D RTO 1 week Normal Provider Locations System Support Technician Authentication Interface Message Text Patient Active Problem [...] NON REACTIVE Provider Locations PATIENT INSTRUCTIONSon 11-02 System Support Technician Authentication Interface Message Text Thank you for choosing [facility]. It was a pleasure to see you today! Please call [phone] for all your office needs. Your opinion [...] improve your experience. We are available via [employer] messages and phone calls during regular business hours, but if there is an urgent need or you need to be seen after hours (in triage or the ER) please call our after hours number [phone]. You will be connected to the buckle and button maker physician or feather washer. If a hospital visit is recommended please always go to [facility] located at [address] [place] [address]. Getting your test results is easier than ever! There are several ways you could receive results If you are a [employer] user this allows you rapid access to results. Most test results are released within 24 hours and may be viewable to you even before your provider reviews the results, or Clinical staff may call you with any abnormal results to discuss further your plan of care with the provider, or you could receive a letter for normal results. Attention [employer] Users! Want to send us a non urgent message, check your test results, request a medication refill, or schedule an appointment at your convenience? It's fast, safe, and easy. Just log in to [email or web address] and enter your user name and password. If you don't have a user name or password please ask one of our very qualified staff members and they will be happy to assist you in getting signed up. These messages are checked during office hours only. Please still call the office or physician buckle and button maker with any urgent medical issues. For technical support, call If you had labs ordered today you can go to any [facility] lab and walk in with no appointment needed. If any imaging was ordered for you, central scheduling should call you within the week. If you do not hear from them, you can call them at [phone]. Any outpatient referrals with be taken care of by our staff. If you do not hear from their office within 1 week, please call our office at [phone] so we can check on the status for you. We all want to Thank you for choosing [facility]! Normal Provider Locations PROGRESS NOTESon 11-02-2022 System Support Technician Authentication Interface Message Text Patient Active Problem [...] uc/std/pl WNL Pertussis allergy Normal Provider Locations System Support Technician Authentication Interface Message Text Pt presents today [...] ISOLATED Normal Provider Locations PATIENT INSTRUCTIONSon 10-26 System Support Technician Authentication Interface Message Text Thank you for choosing [facility]. It was a pleasure to see you today! Please call [phone] for all your office needs. Your opinion [...] improve your experience. We are available via [employer] messages and phone calls during regular business hours, but if there is an urgent need or you need to be seen after hours (in triage or the ER) please call our after hours number [phone]. You will be connected to the buckle and button maker physician or feather washer. If a hospital visit is recommended please always go to [facility] located at [address] [facility]. Getting your test results is easier than ever! There are several ways you could receive results If you are a [employer] user this allows you rapid access to results. Most test results are released within 24 hours and may be viewable to you even before your provider reviews the results, or Clinical staff may call you with any abnormal results to discuss further your plan of care with the provider, or you could receive a letter for normal results. Attention [employer] Users! Want to send us a non urgent message, check your test results, request a medication refill, or schedule an appointment at your convenience? It's fast, safe, and easy. Just log in to [email or web address] and enter your user name and password. If you don't have a user name or password please ask one of our very qualified staff members and they will be happy to assist you in getting signed up. These messages are checked during office hours only. Please still call the office or physician buckle and button maker with any urgent medical issues. For technical support, call If you had labs ordered today you can go to any [facility] lab and walk in with no appointment needed. If any imaging was ordered for you, central scheduling should call you within the week. If you do not hear from them, you can call them at [phone]. Any outpatient referrals with be taken care of by our staff. If you do not hear from their office within 1 week, please call our office at [phone] so we can check on the status for you. We all want to Thank you for choosing [facility]! Normal Provider Locations PROGRESS NOTESon 10-26-2022 System Support Technician Authentication Interface Message Text Patient Active Problem [...] uc/std/pl WNL Pertussis allergy Normal Provider Locations System Support Technician Authentication Interface Message Text Pt presents today for routine OB visit @ 36+1 +FM, no bleeding, no LOF Feeling well overall, ready to meet baby soon! GBS self collected All set for FBBC She has no other questions or concerns S=D RTO 1 week Normal Provider Locations PATIENT INSTRUCTIONSon 10-12 System Support Technician Authentication Interface Message Text Thank you for choosing [facility] [place]. It was a pleasure to see you today! Please call [phone] for all your office needs. Your opinion [...] improve your experience. We are available via [employer] messages and phone calls during regular business hours, but if there is an urgent need or you need to be seen after hours (in triage or the ER) please call our after hours number [phone]. You will be connected to the buckle and button maker physician or feather washer. If a hospital visit is recommended please always go to [facility] located at [address] [place] [address]. Getting your test results is easier than ever! There are several ways you could receive results If you are a [employer] user this allows you rapid access to results. Most test results are released within 24 hours and may be viewable to you even before your provider reviews the results, or Clinical staff may call you with any abnormal results to discuss further your plan of care with the provider, or you could receive a letter for normal results. Attention [employer] Users! Want to send us a non urgent message, check your test results, request a medication refill, or schedule an appointment at your convenience? It's fast, safe, and easy. Just log in to [email or web address] and enter your user name and password. If you don't have a user name or password please ask one of our very qualified staff members and they will be happy to assist you in getting signed up. These messages are checked during office hours only. Please still call the office or physician buckle and button maker with any urgent medical issues. For technical support, call If you had labs ordered today you can go to any [facility] lab and walk in with no appointment needed. If any imaging was ordered for you, central scheduling should call you within the week. If you do not hear from them, you can call them at [phone]. Any outpatient referrals with be taken care of by our staff. If you do not hear from their office within 1 week, please call our office at [phone] so we can check on the status for you. We all want to Thank you for choosing [facility] Normal Provider Locations PROGRESS NOTESon 10-12-2022 System Support Technician Authentication Interface Message Text Routine OB visit @ 34+1 Good FM Denies VB, LOF, or ctx Has 36 week appointment with FBBC scheduled FBBC paperwork signed today, patient remains low risk candidate RPR/CBC ordered S=D RTO 2 weeks Normal Provider Locations System Support Technician Authentication Interface Message Text Patient Active Problem [...] allergy. Normal Provider Locations PATIENT INSTRUCTIONSon 09-28 System Support Technician Authentication Interface Message Text Thank you for choosing [facility] [place]. It was a pleasure to see you today! Please call [phone] for all your office needs. Your opinion [...] improve your experience. We are available via [employer] messages and phone calls during regular business hours, but if there is an urgent need or you need to be seen after hours (in triage or the ER) please call our after hours number [phone]. You will be connected to the buckle and button maker physician or feather washer. If a hospital visit is recommended please always go to [facility] located at [address] [place] [address] in [place]. Getting your test results is easier than ever! There are several ways you could receive results If you are a [employer] user this allows you rapid access to results. Most test results are released within 24 hours and may be viewable to you even before your provider reviews the results, or Clinical staff may call you with any abnormal results to discuss further your plan of care with the provider, or you could receive a letter for normal results. Attention [employer] Users! Want to send us a non urgent message, check your test results, request a medication refill, or schedule an appointment at your convenience? It's fast, safe, and easy. Just log in to [email or web address] and enter your user name and password. If you don't have a user name or password please ask one of our very qualified staff members and they will be happy to assist you in getting signed up. These messages are checked during office hours only. Please still call the office or physician buckle and button maker with any urgent medical issues. For technical support, call If you had labs ordered today you can go to any [facility] lab and walk in with no appointment needed. If any imaging was ordered for you, central scheduling should call you within the week. If you do not hear from them, you can call them at [phone]. Any outpatient referrals with be taken care of by our staff. If you do not hear from their office within 1 week, please call our office at [phone] so we can check on the status for you. We all want to Thank you for choosing [facility] Normal Provider Locations PROGRESS NOTESon 09-28-2022 System Support Technician Authentication Interface Message Text Patient Active Problem List Diagnosis Date Noted ? Supervision of other normal , antepartum 04/27/2022 Planning FBBC Urine Glucose negative Protein negative Leukocytes positive - trace RBC negative Nitrites negative Here for ob check O+ gtt 88/hgb 13.1 +fm Normal Provider Locations System Support Technician Authentication Interface Message Text + movement Feels good Discussed FBBC consent she needs to bring in No other concerns LMixCNM Normal Provider Locations PATIENT INSTRUCTIONSon 09-12 System Support Technician Authentication Interface Message Text Thank you for choosing [facility] [place]. It was a pleasure to see you today! Please call [phone] for all your office needs. Your opinion [...] improve your experience. We are available via [employer] messages and phone calls during regular business hours, but if there is an urgent need or you need to be seen after hours (in triage or the ER) please call our after hours number [phone]. You will be connected to the buckle and button maker physician or feather washer. If a hospital visit is recommended please always go to [facility] located at [address] [place] [address]. Getting your test results is easier than ever! There are several ways you could receive results If you are a [employer] user this allows you rapid access to results. Most test results are released within 24 hours and may be viewable to you even before your provider reviews the results, or Clinical staff may call you with any abnormal results to discuss further your plan of care with the provider, or you could receive a letter for normal results. Attention [employer] Users! Want to send us a non urgent message, check your test results, request a medication refill, or schedule an appointment at your convenience? It's fast, safe, and easy. Just log in to [email or web address] and enter your user name and password. If you don't have a user name or password please ask one of our very qualified staff members and they will be happy to assist you in getting signed up. These messages are checked during office hours only. Please still call the office or physician buckle and button maker with any urgent medical issues. For technical support, call If you had labs ordered today you can go to any [facility] lab and walk in with no appointment needed. If any imaging was ordered for you, central scheduling should call you within the week. If you do not hear from them, you can call them at [phone]. Any outpatient referrals with be taken care of by our staff. If you do not hear from their office within 1 week, please call our office at [phone] so we can check on the status for you. We all want to Thank you for choosing [facility] Normal Provider Locations PROGRESS NOTESon 09-12-2022 System Support Technician Authentication Interface Message Text Patient Active Problem List Diagnosis Date Noted ? Supervision of other normal , antepartum 04/27/2022 Planning FBBC Urine Glucose negative Protein negative Leukocytes negative RBC negative Nitrites negative patient presents for ob check states +FM O+ gtt 88 hgb 13.1 tdap - allergy No questions or concerns at this time. Normal Provider Locations PATIENT INSTRUCTIONSon 08-31 System Support Technician Authentication Interface Message Text Thank you for choosing [facility] [place]. It was a pleasure to see you today! Please call [phone] for all your office needs. Your opinion [...] improve your experience. We are available via [employer] messages and phone calls during regular business hours, but if there is an urgent need or you need to be seen after hours (in triage or the ER) please call our after hours number [phone]. You will be connected to the buckle and button maker physician or feather washer. If a hospital visit is recommended please always go to [facility] located at [address] [place] [address]. Getting your test results is easier than ever! There are several ways you could receive results If you are a [employer] user this allows you rapid access to results. Most test results are released within 24 hours and may be viewable to you even before your provider reviews the results, or Clinical staff may call you with any abnormal results to discuss further your plan of care with the provider, or you could receive a letter for normal results. Attention [employer] Users! Want to send us a non [...] Please still call the office or physician buckle and button maker with any urgent medical issues. For technical support, call If you had labs ordered today you can go to any [facility] lab and walk in with no appointment needed. If any imaging was ordered for you, central scheduling should call you within the week. If you do not hear from them, you can call them at [phone]. Any outpatient referrals with be taken care of by our staff. If you do not hear from their office within 1 week, please call our office at [phone] so we can check on the status for you. We all want to Thank you for choosing [facility] Normal Provider Locations PROGRESS NOTESon 08-31-2022 System Support Technician Authentication Interface Message Text Patient Active Problem List Diagnosis Date Noted ? Supervision of other normal , antepartum 04/27/2022 Planning FBBC Urine Glucose negative Protein negative Leukocytes positive - trace RBC negative Nitrites negative Here for ob check O+ gtt 88/hgb 13.1 Discuss varicose vein on labia Normal Provider Locations System Support Technician Authentication Interface Message Text Pt presents for [...] <140 Provid er Locations PATIENT INSTRUCTIONSon 08-02 System Support Technician Authentication Interface Message Text Thank you for choosing [facility] [place]. It was a pleasure to see you today! Please call [phone] for all your office needs. Your opinion [...] improve your experience. We are available via [employer] messages and phone calls during regular business hours, but if there is an urgent need or you need to be seen after hours (in triage or the ER) please call our after hours number [phone]. You will be connected to the buckle and button maker physician or feather washer. If a hospital visit is recommended please always go to [facility] located at [address] [facility]. Getting your test results is easier than ever! There are several ways you could receive results If you are a [employer] user this allows you rapid access to [...] safe, and easy. Just log in to [email or web address] and enter your user name and password. If you don't have a user name or password please ask one of our very qualified staff members and they will be happy to assist you in getting signed up. These messages are checked during office hours only. Please still call the office or physician buckle and button maker with any urgent medical issues. For technical support, call If you had labs ordered today you can go to any [facility] lab and walk in with no appointment needed. If any imaging was ordered for you, central scheduling should call you within the week. If you do not hear from them, you can call them at [phone]. Any outpatient referrals with be taken care of by our staff. If you do not hear from their office within 1 week, please call our office at [phone] so we can check on the status for you. We all want to Thank you for choosing [facility] Normal Provider Locations PROGRESS NOTESon 08-02-2022 System Support Technician Authentication Interface Message Text Pt presents today for routine OB visit @ 24+0 +FM, no bleeding, no LOF Feeling well overall Plans to do GTT in next few weeks Will call FBBC between 28-32 weeks She has no other questions or concerns S=D RTO 4 weeks Normal Provider Locations System Support Technician Authentication Interface Message Text Patient Active Problem List Diagnosis Date Noted ? Supervision of other normal , antepartum 04/27/2022 Planning FBBC Urine Glucose negative Protein negative Leukocytes positive - 1+ RBC negative Nitrites negative Here for exam. Will do GTT around 26 weeks. No concerns or questions today. +FM, says baby is moving well. Normal Provider Locations PATIENT INSTRUCTIONSon 06-30 System Support Technician Authentication Interface Message Text [facility] you for choosing [facility] [facility] [place]. It was a pleasure to see you today! Please call [phone] for all your office needs. Your opinion [...] improve your experience. We are available via [employer] messages and phone calls during regular business hours, but if there is an urgent need or you need to be seen after hours (in triage or the ER) please call our after hours number [phone]. You will be connected to the buckle and button maker physician or feather washer. If a hospital visit is recommended please always go to [facility] located at [address] [facility] in [place]. Getting your test results is easier than ever! There are several ways you could receive results If you are a [employer] user this allows you rapid access to results. Most test results are released within 24 hours and may be viewable to you even before your provider reviews the results, or Clinical staff may call you with any abnormal results to discuss further your plan of care with the provider, or you could receive a letter for normal results. Attention [employer] Users! Want to send us a non urgent message, check your test results, request a medication refill, or schedule an appointment at your convenience? It's fast, safe, and easy. Just log in to [email or web address] and enter your user name and password. If you don't have a user name or password please ask one of our very qualified staff members and they will be happy to assist you in getting signed up. These messages are checked during office hours only. Please still call the office or physician buckle and button maker with any urgent medical issues. For technical support, call If you had labs ordered today you can go to any [facility] lab and walk in with no appointment needed. If any imaging was ordered for you, central scheduling should call you within the week. If you do not hear from them, you can call them at [phone]. Any outpatient referrals with be taken care of by our staff. If you do not hear from their office within 1 week, please call our office at [phone] so we can check on the status for you. We all want to Thank you for choosing [facility]! Normal Provider Locations PROGRESS NOTESon 06-30-2022 System Support Technician Authentication Interface Message Text Patient Active Problem [...] hgb 14.1 uc/std/pl WNL Normal Provider Locations System Support Technician Authentication Interface Message Text Yanet Banks was seen in [facility] 06/30/2022. Normal [facility] PATIENT INSTRUCTIONSon 05-25 System Support Technician Authentication Interface Message Text Thank you for choosing [facility] [place]. It was a pleasure to see you today! Please call [phone] for all your office needs. Your opinion [...] improve your experience. We are available via [employer] messages and phone calls during regular business hours, but if there is an urgent need or you need to be seen after hours (in triage or the ER) please call our after hours number [phone]. You will be connected to the buckle and button maker physician or feather washer. If a hospital visit is recommended please always go to main [facility] located at [address] [place] [address]. Getting your test results is easier than ever! There are several ways you could receive results If you are a [employer] user this allows you rapid access to results. Most test results are released within 24 hours and may be viewable to you even before your provider reviews the results, or Clinical staff may call you with any abnormal results to discuss further your plan of care with the provider, or you could receive a letter for normal results. Attention [employer] Users! Want to send us a non urgent message, check your test results, request a medication refill, or schedule an appointment at your convenience? It's fast, safe, and easy. Just log in to [email or web address] and enter your user name and password. If you don't have a user name or password please ask one of our very qualified staff members and they will be happy to assist you in getting signed up. These messages are checked during office hours only. Please still call the office or physician buckle and button maker with any urgent medical issues. For technical support, call If you had labs ordered today you can go to any [facility] lab and walk in with no appointment needed. If any imaging was ordered for you, central scheduling should call you within the week. If you do not hear from them, you can call them at [phone]. Any outpatient referrals with be taken care of by our staff. If you do not hear from their office within 1 week, please call our office at [phone] so we can check on the status for you. We all want to Thank you for choosing [facility]! Normal Provider Locations PROGRESS NOTESon 05-25-2022 System Support Technician Authentication Interface Message Text Patient Active Problem [...] concerns at this time Normal Provider Locations System Support Technician Authentication Interface Message Text Yanet Banks [id number] Patient Active Problem List Diagnosis ? [...] 3.5-10.9 Provid er Locations ANESTH ADDENDUMon 04-27-2022 System Support Technician Authentication Interface Message Text Addended by: ZAIDA [...] DETECTED Normal Provider Locations PROGRESS NOTESon 04-27-2022 System Support Technician Authentication Interface Message Text There are no [...] concerns at this time Normal Provider Locations System Support Technician Authentication Interface Message Text New OB visit [...] Anion gap [Moles/Vol] 13 mmol/L Normal 5-15 [facility] Comment on above: Performed By: #### L [id number] #### [place] [address] Calcium [Mass/Vol] 9.5 mg/dL Normal 8.5-10.5 [facility] Comment on above: Performed By: #### L [id number] #### [place] [address] Chloride [Moles/Vol] 101 mmol/L Normal 96-110 [facility] Comment on above: Performed By: #### L [id number] #### [place] [id number] CO2 [Moles/Vol] 22 mmol/L Normal 19-32 [facility] Comment on above: Performed By: #### L AB064 #### [place] [id number] Creatinine [Mass/Vol] 0.6 mg/dL Normal 0.5-1.2 [facility] Comment on above: Performed By: #### L [id number] #### [place] [id number] ESTIMATED GFR 126 mL/min/1.73m*2 Normal >=60 [facility] Comment on above: Performed By: #### L [id number] #### [place] [id number] Glucose [Mass/Vol] 112 mg/dL High 70-99 [facility] Comment on above: Performed By: #### L [id number] #### [place] [id number] Potassium [Moles/Vol] 3.7 mmol/L Normal 3.4-5.3 [facility] Comment on above: Performed By: #### L AB064 #### [place] [id number] Sodium [Moles/Vol] 136 mmol/L Normal 135-148 [facility] Comment on above: Performed By: #### L AB064 #### [place] [id number] Urea nitrogen [Mass/Vol] 10 mg/dL Normal 3-29 [facility] Comment on above: Performed By: #### L AB064 #### [place] [id number] Urea nitrogen/Creatinine [Mass ratio] 17 mg/mg Normal - [facility] Comment on above: Performed By: #### L [id number] #### [place] [address] Anion gap [Moles/Vol] 13 mmol/L 5 - 15 [facility] Calcium [Mass/Vol] 9.5 mg/dL 8.5 - 10.5 mg/dL [facility] Chloride [Moles/Vol] 101 mmol/L [facility] CO2 [Moles/Vol] 22 mmol/L [facility] Creatinine [Mass/Vol] 0.6 mg/dL 0.5 - 1.2 mg/dL [facility] GFR/1.73 sq M.predicted among blacks MDRD (S/P/Bld) [Vol rate/Area] 126 mL/min/{1.73_m2} - [facility] Glucose [Mass/Vol] 112 mg/dL High 70 - 99 mg/dL [facility] Interpretation and review of laboratory results Abnormal [facility] Potassium [Moles/Vol] 3.7 mmol/L [facility] Sodium [Moles/Vol] 136 mmol/L [facility] Urea nitrogen [Mass/Vol] 10 mg/dL 3 - 29 mg/dL [facility] Urea nitrogen/Creatinine [Mass ratio] 17 mg/mg - [facility] COMPLETE BLOOD COUNT WITH DI FFERENTIALon 04-23-2022 BASOPHILS ABSOLUTE COUNT (10*3/UL) BY AUTOMATED COUNT 0.0 K/uL Normal 0.0-0.3 [facility] Comment on above: Performed By: #### L [id number] #### [place] [address] BASOPHILS RELATIVE PERCENT BY AUTOMATED COUNT 0.1 % Normal 0.0-2.0 [facility] Comment on above: Performed By: #### L AB119 #### [place] [address] Eosinophils (Bld) [#/Vol] 0.0 10*3/uL Normal 0.0-0.5 [facility] Comment on above: Performed By: #### L AB119 #### [place] [address] EOSINOPHILS RELATIVE PERCENT BY AUTOMATED COUNT 0.1 % Normal 0.0-5.0 [facility] Comment on above: Performed By: #### L AB119 #### [place] [address] Erythrocyte distribution width (RBC) [Ratio] 11.8 % Normal <=15.0 [facility] Comment on above: Performed By: #### L AB119 #### [place] [address] Hematocrit (Bld) [Volume fraction] 42.8 % Normal 34.0-49.0 [facility] Comment on above: Performed By: #### L AB119 #### [place] [id number] Hemoglobin (Bld) [Mass/Vol] 15.1 g/dL Normal 11.2-15.7 [facility] Comment on above: Performed By: #### L AB119 #### [place] [id number] Immature granulocytes (Bld) [#/Vol] 0.0 10*3/uL Normal 0.0-0.1 [facility] Comment on above: Performed By: #### L AB119 #### [place] [address] Immature granulocytes/100 WBC (Bld) 0.2 % Normal <1.0 [facility] Comment on above: Performed By: #### L AB119 #### [place] [id number] LYMPHOCYTES ABSOLUTE COUNT (10*3/UL) BY AUTOMATED COUNT 0.5 K/uL Low 0.9-4.1 [facility] Comment on above: Performed By: #### L AB119 #### [place] [id number] LYMPHOCYTES RELATIVE PERCENT BY AUTOMATED COUNT 4.5 % Low 14.0-51.0 [facility] Comment on above: Performed By: #### L AB119 #### [place] [address] MCH (RBC) [Entitic mass] 31.9 pg Normal 26.0-34.0 [facility] Comment on above: Performed By: #### L AB119 #### [place] [address] MCHC (RBC) [Mass/Vol] 35.3 g/dL Normal 30.7-35.5 [facility] Comment on above: Performed By: #### L AB119 #### [place] [address] MCV (RBC) [Entitic vol] 90.5 fL Normal 80.0-100.0 [facility] Comment on above: Performed By: #### L AB119 #### [place] [address] MEAN PLATELET VOLUME (FL) BY AUTOMATED COUNT 9.1 fL Normal 7.2-11.7 [facility] Comment on above: Performed By: #### L AB119 #### [place] [address] MONOCYTES ABSOLUTE COUNT (10*3/UL) BY AUTOMATED COUNT 0.4 K/uL Normal 0.2-1.0 [facility] Comment on above: Performed By: #### L AB119 #### [place] [address] MONOCYTES RELATIVE PERCENT BY AUTOMATED COUNT 3.6 % Low 4.0-12.0 [facility] Comment on above: Performed By: #### L AB119 #### [place] [address] NEUTROPHILS ABSOLUTE COUNT (10*3/UL) BY AUTOMATED COUNT 9.7 K/uL High 1.8-7.5 [facility] Comment on above: Performed By: #### L AB119 #### [place] [address] NEUTROPHILS RELATIVE PERCENT BY AUTOMATED COUNT 91.5 % High 42.0-80.0 [facility] Comment on above: Performed By: #### L AB119 #### [place] [address] PLATELETS (10*3/UL) BY AUTOMATED COUNT 291 K/uL Normal 140-400 [facility] Comment on above: Performed By: #### L AB119 #### [place] [address] RBC (Bld) [#/Vol] 4.73 10*6/uL Normal 3.95-5.26 [facility] Comment on above: Performed By: #### L [id number] #### [place] [address] WBC (Bld) [#/Vol] 10.6 10*3/uL Normal 3.5-10.9 [facility] Comment on above: Performed By: #### L AB119 #### [place] [address] Basophils (Bld) [#/Vol] 0.0 10*3/uL 0.0 - 0.3 K/uL [facility] Basophils/100 WBC (Bld) 0.1 % 0.0 - 2.0 % [facility] Eosinophils (Bld) [#/Vol] 0.0 10*3/uL 0.0 - 0.5 K/uL [facility] Eosinophils/100 WBC (Bld) 0.1 % 0.0 - 5.0 % [facility] Erythrocyte distribution width (RBC) [Ratio] 11.8 % NINF - 15.0 % [facility] Hematocrit (Bld) [Volume fraction] 42.8 % 34.0 - 49.0 % [facility] Hemoglobin (Bld) [Mass/Vol] 15.1 g/dL 11.2 - 15.7 g/dL [facility] Immature granulocytes (Bld) [#/Vol] 0.0 10*3/uL 0.0 - 0.1 K/uL [facility] Immature granulocytes/100 WBC (Bld) 0.2 % NINF - 1.0 % [facility] Interpretation and review of laboratory results Abnormal [facility] Lymphocytes (Bld) [#/Vol] 0.5 [...] PANELon Albumin [Mass/Vol] 4.4 g/dL Normal 3.5-5.2 [facility] Comment on above: Performed By: #### L AB238 ####[place] [phone] ALP [Catalytic activity/Vol] 55 U/L Normal 23-144 [facility] Comment on above: Performed By: #### L AB238 ####[place] [phone] ALT [Catalytic activity/Vol] 12 U/L Normal 0-60 [facility] Comment on above: Performed By: #### L AB238 ####[place] [phone] AST [Catalytic activity/Vol] 17 U/L Normal 0-46 [facility] Comment on above: Performed By: #### L AB238 ####[place] [phone] Bilirubin [Mass/Vol] 0.6 mg/dL Normal 0.0-1.2 [facility] Comment on above: Performed By: #### L AB238 ####[place] [phone] BILIRUBIN, DIRECT < Normal 0.0-0.4 [facility] Comment on above: Performed By: #### L AB238 ####[place] [phone] BILIRUBIN, INDIRECT Normal [facility] Comment on above: Result Comment: Unab le to calculate. Performed By: #### L AB238 ####[place] [phone] Protein [Mass/Vol] 7.3 g/dL Normal 6.0-8.3 [facility] Comment on above: Performed By: #### L AB238 ####[place] [phone] Albumin [Mass/Vol] 4.4 g/dL 3.5 - 5.2 g/dL [facility] ALP [Catalytic activity/Vol] 55 U/L 23 - 144 U/L [facility] ALT [Catalytic activity/Vol] 12 U/L 0 - 60 U/L [facility] AST [Catalytic activity/Vol] 17 U/L 0 - 46 U/L [facility] Bilirubin [Mass/Vol] 0.6 mg/dL 0.0 - 1.2 mg/dL [facility] Bilirubin.direct [Mass/Vol] mg/dL 0.0 - 0.4 mg/dL [facility] Bilirubin.indirect [Mass/Vol] [facility] Comment on above: Unable to calculate. Protein [Mass/Vol] 7.3 g/dL 6.0 - 8.3 g/dL [facility] LIPASEon 04-23-2022 Lipase [Catalytic activity/Vol] 27 U/L Normal 0-60 [facility] Comment on above: Performed By: #### L AB287 ####[place] [phone] Interpretation and review of laboratory results [facility] [Catalytic activity/Vol] 27 U/L 0 - 60 U/L [facility] No Panel Informationon 04-23 [facility] Vital Signs Date Time Vital Sign Value Performing Clinician Faci lity 03-14-2025 10:07-0400 Body mass index (BMI) [Ratio] 29.29 kg/m2 Khadra Mancini APRN.CNM Work Phone: [facility] 03-14-2025 10:07-0400 Body weight 70.31 kg Khadra Mancini APRN.CNM Work Phone: [facility] 03-14-2025 10:07-0400 Diastolic blood pressure 82 mm[Hg] Khadra Mancini APRN.CNM Work Phone: [facility] 03-14-2025 10:07-0400 Systolic blood pressure 114 mm[Hg] Khadra Mancini APRN.CNM Work Phone: [facility] 03-13-2025 01:59-0400 Body height 157.48 cm No Primary Care Physician [facility] 03-13-2025 01:59-0400 Body mass index (BMI) [Ratio] 28.7 kg/m2 No Primary Care Physician [facility] 03-13-2025 01:59-0400 Body weight 71.21 kg No Primary Care Physician [facility] 03-13-2025 01:55-0400 Diastolic blood pressure 77 mm[Hg] No Primary Care Physician [facility] 03-13-2025 01:55-0400 Heart rate 83 /min No Primary Care Physician [facility] 03-13-2025 01:55-0400 Systolic blood pressure 108 mm[Hg] No Primary Care Physician [facility] 03-13-2025 01:54-0400 SaO2% (BldA) [Mass fraction] 97 % No Primary Care Physician [facility] 03-13-2025 01:49-0400 Body temperature 97.9 [degF] No Primary Care Physician [facility] 03-13-2025 01:49-0400 Respiratory rate 16 /min No Primary Care Physician [facility] 03-11-2025 10:33-0400 Body mass index (BMI) [Ratio] 29.48 kg/m2 Khadra Mancini APRN.CNM Work Phone: [facility] 03-11-2025 10:33-0400 Body weight 70.76 kg Khadra Mancini APRN.CNM Work Phone: [facility] 03-11-2025 10:33-0400 Diastolic blood pressure 62 mm[Hg] Khadra Mancini APRN.CNM Work Phone: [facility] 03-11-2025 10:33-0400 Systolic blood pressure 110 mm[Hg] Khadra Mancini APRN.CNM Work Phone: [facility] 03-07-2025 13:14-0400 Body mass index (BMI) [Ratio] 29.78 kg/m2 Annie Thakur APRN.CNM Work Phone: [facility] 03-07-2025 13:14-0400 Body weight 71.49 kg Annie Thakur APRN.CNM Work Phone: [facility] 03-07-2025 13:14-0400 Diastolic blood pressure 64 mm[Hg] Annie Thakur APRN.CNM Work Phone: [facility] 03-07-2025 13:14-0400 Systolic blood pressure 118 mm[Hg] Annie Thakur CERTIFIED RESPIRATORY THERAPIST.CNM Work Phone: [facility] 03-05-2025 09:02-0400 Body mass index (BMI) [Ratio] 29.4 kg/m2 Annie Michaelts CERTIFIED RESPIRATORY THERAPIST.CNM Work Phone: [facility] 03-05-2025 09:02-0400 Body weight 70.58 kg Annie Thakur CERTIFIED RESPIRATORY THERAPIST.CNM Work Phone: [facility] 03-05-2025 09:02-0400 Diastolic blood pressure 64 mm[Hg] Annie Thakur CERTIFIED RESPIRATORY THERAPIST.CNM Work Phone: [facility] 03-05-2025 09:02-0400 Systolic blood pressure 110 mm[Hg] Annie Thakur CERTIFIED RESPIRATORY THERAPIST.CNM Work Phone: [facility] 02-25-2025 08:05-0400 Body mass index (BMI) [Ratio] 28.91 kg/m2 Khadra Mancini CERTIFIED RESPIRATORY THERAPIST.CNM Work Phone: [facility] 02-25-2025 08:05-0400 Body weight 69.4 kg Khadra Mancini CERTIFIED RESPIRATORY THERAPIST.CNM Work Phone: [facility] 02-25-2025 08:05-0400 Diastolic blood pressure 68 mm[Hg] Khadra Mancini CERTIFIED RESPIRATORY THERAPIST.CNM Work Phone: [facility] 02-25-2025 08:05-0400 Systolic blood pressure 108 mm[Hg] Khadra Mancini CERTIFIED RESPIRATORY THERAPIST.CNM Work Phone: [facility] 02-11-2025 08:47-0400 Body mass index (BMI) [Ratio] 28.15 kg/m2 Chinyere Lehman MD Work Phone: [facility] 02-11-2025 08:47-0400 Body weight 67.59 kg Chinyere Lehman MD Work Phone: [facility] 02-11-2025 08:47-0400 Diastolic blood pressure 62 mm[Hg] Chinyere Lehman MD Work Phone: [facility] 02-11-2025 08:47-0400 Systolic blood pressure 98 mm[Hg] Chinyere Lehman MD Work Phone: [facility] 01-28-2025 08:38-0400 Body mass index (BMI) [Ratio] 27.59 kg/m2 Arthur Conklin MD Work Phone: [facility] 01-28-2025 08:38-0400 Body weight 66.22 kg Arthur Conklin MD Work Phone: [facility] 01-28-2025 08:38-0400 Diastolic blood pressure 60 mm[Hg] Arthur Conklin MD Work Phone: [facility] 01-28-2025 08:38-0400 Systolic blood pressure 98 mm[Hg] Arthur Conklin MD Work Phone: [facility] 01-14-2025 08:04-0400 Body mass index (BMI) [Ratio] 27.21 kg/m2 Khadra Mancini APRN.CNM Work Phone: [facility] 01-14-2025 08:04-0400 Body weight 65.32 kg Khadra Live TURNERN.CNM Work Phone: [facility] 01-14-2025 08:04-0400 Diastolic blood pressure 70 mm[Hg] Khadra Live TURNERN.CNM Work Phone: [facility] 01-14-2025 08:04-0400 Systolic blood pressure 116 mm[Hg] Khadra Live TURNERN.CNM Work Phone: [facility] 12-31-2024 08:07-0400 Body mass index (BMI) [Ratio] 26.83 kg/m2 Khadramignon Mancini APRN.CNM Work Phone: [facility] 12-31-2024 08:07-0400 Body weight 64.41 kg Khadra Live MORE.CNM Work Phone: [facility] 12-31-2024 08:07-0400 Diastolic blood pressure 62 mm[Hg] Khadra Mancini CERTIFIED RESPIRATORY THERAPIST.CNM Work Phone: [facility] 12-31-2024 08:07-0400 Systolic blood pressure 98 mm[Hg] Khadra Mancini CERTIFIED RESPIRATORY THERAPIST.CNM Work Phone: [facility] 12-17-2024 09:57-0400 Body mass index (BMI) [Ratio] 26.64 kg/m2 Khadra Mancini CERTIFIED RESPIRATORY THERAPIST.CNM Work Phone: [facility] 12-17-2024 09:57-0400 Body weight 63.96 kg Khadra Mancini CERTIFIED RESPIRATORY THERAPIST.CNM Work Phone: [facility] 12-17-2024 09:57-0400 Diastolic blood pressure 62 mm[Hg] Khadra Mancini CERTIFIED RESPIRATORY THERAPIST.CNM Work Phone: [facility] 12-17-2024 09:57-0400 Systolic blood pressure 100 mm[Hg] Khadra Mancini CERTIFIED RESPIRATORY THERAPIST.CNM Work Phone: [facility] 11-19-2024 11:23-0400 Body mass index (BMI) [Ratio] 26.07 kg/m2 Khadra Mancini CERTIFIED RESPIRATORY THERAPIST.CNM Work Phone: [facility] 11-19-2024 11:23-0400 Body weight 62.6 kg Khadra Mancini CERTIFIED RESPIRATORY THERAPIST.CNM Work Phone: [facility] 11-19-2024 11:23-0400 Diastolic blood pressure 62 mm[Hg] Khadra Mancini CERTIFIED RESPIRATORY THERAPIST.CNM Work Phone: [facility] 11-19-2024 11:23-0400 Systolic blood pressure 104 mm[Hg] Khadra Mancini CERTIFIED RESPIRATORY THERAPIST.CNM Work Phone: [facility] 10-23-2024 09:41-0400 Body mass index (BMI) [Ratio] 25.32 kg/m2 Annie Thakur CERTIFIED RESPIRATORY THERAPIST.CNM Work Phone: [facility] 10-23-2024 09:41-0400 Body weight 60.78 kg Annie Plotchapincito CERTIFIED RESPIRATORY THERAPIST.CNM Work Phone: [facility] 10-23-2024 09:41-0400 Diastolic blood pressure 64 mm[Hg] Annie Plotts CERTIFIED RESPIRATORY THERAPIST.CNM Work Phone: [facility] 10-23-2024 09:41-0400 Systolic blood pressure 112 mm[Hg] Annie Plotts CERTIFIED RESPIRATORY THERAPIST.CNM Work Phone: [facility] 09-24-2024 09:35-0400 Body mass index (BMI) [Ratio] 24.75 kg/m2 Khadra Mancini CERTIFIED RESPIRATORY THERAPIST.CNM Work Phone: [facility] 09-24-2024 09:35-0400 Body weight 59.42 kg Khadra Mancini CERTIFIED RESPIRATORY THERAPIST.CNM Work Phone: [facility] 09-24-2024 09:35-0400 Diastolic blood pressure 66 mm[Hg] Khadra Mancini CERTIFIED RESPIRATORY THERAPIST.CNM Work Phone: [facility] 09-24-2024 09:35-0400 Systolic blood pressure 108 mm[Hg] Khadra Mancini CERTIFIED RESPIRATORY THERAPIST.CNM Work Phone: [facility] 08-28-2024 09:42-0500 Body mass index (BMI) [Ratio] 24.19 kg/m2 Annie Plotts CERTIFIED RESPIRATORY THERAPIST.CNM Work Phone: [facility] 08-28-2024 09:42-0500 Body weight 58.06 kg Annie Plotts CERTIFIED RESPIRATORY THERAPIST.CNM Work Phone: [facility] 08-28-2024 09:42-0500 Diastolic blood pressure 68 mm[Hg] Annie Plotts CERTIFIED RESPIRATORY THERAPIST.CNM Work Phone: [facility] 08-28-2024 09:42-0500 Systolic blood pressure 110 mm[Hg] Annie Plotts CERTIFIED RESPIRATORY THERAPIST.CNM Work Phone: [facility] 07-31-2024 08:40-0500 Body mass index (BMI) [Ratio] 23.51 kg/m2 Annie Thakur CERTIFIED RESPIRATORY THERAPIST.CNM Work Phone: [facility] 07-31-2024 08:40-0500 Body weight 56.43 kg Annie Thakur CERTIFIED RESPIRATORY THERAPIST.CNM Work Phone: [facility] 07-31-2024 08:40-0500 Diastolic blood pressure 60 mm[Hg] Annie Thakur CERTIFIED RESPIRATORY THERAPIST.CNM Work Phone: [facility] 07-31-2024 08:40-0500 Systolic blood pressure 122 mm[Hg] Annie Thakur CERTIFIED RESPIRATORY THERAPIST.CNM Work Phone: [facility] 04-23-2022 14:16-0400 Body height 157.5 cm Joslyn Panda MD Work Phone: [employer] [facility] [email or web address] 04-23-2022 14:16-0400 Body mass index (BMI) [Ratio] 21.22 kg/m2 Joslyn Panda MD Work Phone: [facility] 04-23-2022 14:16-0400 Body temperature 98.6 [degF] Joslyn Panda MD Work Phone: [facility] 04-23-2022 14:16-0400 Body weight 52.62 kg Joslyn Panda MD Work Phone: [facility] 04-23-2022 14:16-0400 Diastolic blood pressure 82 mm[Hg] Joslyn Panda MD Work Phone: [facility] 04-23-2022 14:16-0400 Heart rate 117 /min Joslyn Panda MD Work Phone: [facility] 04-23-2022 14:16-0400 Respiratory rate 18 /min Joslyn Panda MD Work Phone: [facility] 04-23-2022 14:16-0400 SaO2% (BldA) [Mass fraction] 97 % Joslyn Panda MD Work Phone: [facility] 04-23-2022 14:16-0400 Systolic blood pressure 129 mm[Hg] Joslyn Panda MD Work Phone: [facility] Encounters Encounter Date Encounter Type Care Provider Facility Start: 03-14-2025 End: 03-14-2025 Patient encounter procedure Whi Tech 1 Circus Trainer [employer] [facility] [employer] Maternal Medicine Comment on [...] encounter [facility] Work Phone: Start: 03-12-2025 End: 03-12-2025 Telephone encounter Chinyere Lehman MD Work Phone: OB/Gynecology Comment on above: OB Contractions Start: 03-11-2025 End: 03-11-2025 Patient encounter procedure Khadra Live CERTIFIED RESPIRATORY THERAPIST.CNM Work Phone: OB/Gynecology Comment on above: Encounter for superv ision of other normal in third trimester (HCC) (Primary Dx); 40 weeks gestation of (HCC); Multiparity Start: 03-11-2025 End: 03-11-2025 ambulatory KHADRA MANCINI Facility:[facility] Start: 03-07-2025 End: 03-07-2025 Telephone encounter Annie Thakur CERTIFIED RESPIRATORY THERAPIST.CNM Work Phone: OB/Gynecology Start: 03-07-2025 End: 03-07-2025 Patient encounter procedure Annie Thakur CERTIFIED RESPIRATORY THERAPIST.CNM Work Phone: OB/Gynecology Comment on above: 39 weeks gestation o f (HCC) (Primary Dx); Encounter for supervision of other normal in third trimester (HCC) Start: 03-07-2025 End: 03-07-2025 ambulatory ANNIE THAKUR Facility:[facility] Start: 03-05-2025 End: 03-05-2025 Patient encounter procedure Annie Thakur CERTIFIED RESPIRATORY THERAPIST.HUM Work Phone: OB/Gynecology Comment on above: 39 weeks gestation o f (HCC) (Primary Dx); Encounter for supervision of other normal in third trimester (HCC) Start: 03-05-2025 End: 03-05-2025 ambulatory ANNIE SHAISTA Facility:[facility] Start: 02-25-2025 End: 02-25-2025 Patient encounter procedure Khadra Mancini APRN.CNM Work Phone: OB/Gynecology Comment on above: Encounter for superv ision of other normal in third trimester (HCC) (Primary Dx); 38 weeks gestation of (HCC) Population Health Na vigation Outreach (Ob/peds) Start: 02-25-2025 End: 02-25-2025 ambulatory Niru Casarez MA [facility] Start: 02-18-2025 End: 02-18-2025 ambulatory KHADRA MANCINI Facility:[facility] Start: 02-11-2025 End: 02-11-2025 Patient encounter procedure Chinyere Lehman MD Work Phone: OB/Gynecology Comment on above: Encounter for superv ision of other normal in third trimester (HCC) (Primary Dx); 36 weeks gestation of (HCC) Start: 02-11-2025 End: 02-11-2025 ambulatory CHINYERE LEHMAN Facility:[facility] Start: 01-28-2025 End: 01-29-2025 Telephone encounter Arthur Conklin MD Work Phone: OB/Gynecology Comment on above: Question (OB Questio n) Start: 01-28-2025 End: 01-28-2025 ambulatory ARTHUR CONKLIN Facility:[facility] Start: 01-28-2025 End: 01-28-2025 Patient encounter procedure Arthur Conklin MD Work Phone: OB/Gynecology Comment on above: Encounter for superv ision of other normal in third trimester (HCC) (Primary Dx); 34 weeks gestation of (HCC) Start: 01-14-2025 End: 01-14-2025 ambulatory KHADRA MANCINI Facility:[facility] Start: 01-14-2025 End: 01-14-2025 Patient encounter procedure Khadra Mancini APRN.CNM Work Phone: OB/Gynecology Comment on above: Encounter for superv ision of other normal in third trimester (HCC) (Primary Dx); 32 weeks gestation of (HCC) Start: 01-01-2025 End: 01-01-2025 Telephone encounter Nica Uriarte RN Maternal Medicine Comment on above: Digital Analyst - O ther (PRAF) Start: 12-31-2024 End: 12-31-2024 ambulatory [facility] Facility:[facility] Start: 12-31-2024 End: 12-31-2024 Patient encounter [...] of (HCC) Start: 12-17-2024 End: 12-17-2024 ambulatory [facility] Facility:[facility] Start: 11-19-2024 End: 11-19-2024 Patient encounter procedure Khadra Mancini APRN.MARCELA Work Phone: OB/Gynecology Comment on above: Encounter for superv ision of other normal in second trimester (HCC) (Primary Dx); 24 weeks gestation of (HCC); Screening for diabetes mellitus Start: 11-19-2024 End: 11-19-2024 ambulatory [facility] Facility:[facility] Start: 10-24-2024 End: 10-24-2024 Telephone encounter Nica Uriarte RN Maternal Medicine Comment on above: Digital Analyst - O ther (PRAF) Start: 10-23-2024 End: 10-23-2024 [facility] Start: 10-23-2024 End: 10-23-2024 Patient encounter procedure Annie Thakur CERTIFIED RESPIRATORY THERAPIST.CNCandice Work Phone: OB/Gynecology Comment on above: 20 weeks gestation o f (HCC) (Primary Dx); Encounter for supervision of other normal in second trimester (HCC); Encounter for supervision of normal in multigravida ([facility]) Start: 10-23-2024 End: 10-23-2024 ambulatory [facility] Facility:[facility] Start: 10-23-2024 End: 10-23-2024 Patient encounter procedure Whi Tech 1 [employer] [facility] [employer] Maternal Medicine Comment on above: Encounter for anatomic survey (HCC) (Primary Dx); 20 weeks gestation of ([facility]) Start: 09-24-2024 End: 09-24-2024 ambulatory KHADRA LIVE Facility:[facility] Start: 09-24-2024 End: 09-24-2024 Patient encounter procedure Khadra Live CERTIFIED RESPIRATORY THERAPIST.CNCandice Work Phone: OB/Gynecology Comment on above: Encounter for superv ision of other normal in second trimester (Primary Dx); 16 weeks gestation of Start: 08-29-2024 End: 10-29-2024 Follow-up encounter Annie Thakur APRN.MARCELA Work Phone: OB/Gynecology Start: 08-28-2024 End: 08-28-2024 [facility]ulatory [facility] Start: 08-28-2024 End: 08-28-2024 Patient encounter procedure Annie Thakur CERTIFIED RESPIRATORY THERAPIST.CNM Work Phone: OB/Gynecology Comment on above: 12 weeks gestation o f (Primary Dx); Encounter for supervision of other normal in second trimester; Multiparity Encounter for antena tony screening for malformation using ultrasound (Primary Dx); 12 weeks gestation of ; Encounter for (NT) nuchal translucency scan Start: 08-01-2024 End: 08-01-2024 Telephone encounter Nurse Circus Trainer Ej Lee Work Phone: Obstetrics/Gynecology Comment on above: PRAF Start: 07-31-2024 End: 07-31-2024 ambulatory ANNIE THAKUR Facility:[facility] Start: 07-31-2024 End: 07-31-2024 Patient encounter procedure Annie Thakur CERTIFIED RESPIRATORY THERAPIST.CNM Work Phone: OB/Gynecology Comment on above: Encounter for superv ision of normal in multigravida (Primary Dx); 8 weeks gestation of ; Multiparity Start: 07-27-2024 End: 07-29-2024 Refill Ling Castañedah Luke CERTIFIED RESPIRATORY THERAPIST-SHAPER OPERATOR Work Phone: [facility] Comment on above: Encounter for initia l prescription of vaginal ring hormonal contraceptive Start: 10-25-2023 End: 10-25-2023 ambulatory Ling Daly [facility] Start: 07-27-2023 End: 07-27-2023 ambulatory MARYANN [facility] Start: 01-16-2023 End: 01-16-2023 ambulatory MARYANN [facility] Start: 01-16-2023 Encounter for genera l adult medical examination without abnormal findings LING DALY [facility] Start: 11-17-2022 End: 11-19-2022 Evaluation and management of [facility] Start: 11-09-2022 End: 11-09-2022 ambulatory MARYANN [...] Provider Locations Start: 06-30-2022 ambulatory ALBERTA NOEL [facility] Start: 05-25-2022 ambulatory MARYANN MATHIAS [facility] er Locations Start: 04-23-2022 End: 04-23-2022 Emergency department patient visit JOSLYN PANDA [facility] Start: 04-23-2022 End: 04-23-2022 Emergency department patient visit Joslyn Panda MD Work Phone: [facility] Start: 04-12-2022 End: 04-12-2022 ambulatory MARYANN MATHIAS Provider Locations Procedures Date Procedure Procedure Detail Performing Clinician Start: 03-14-2025 Us preg uterus after 1st trimest 07/17 gestation Khadra Mancini CERTIFIED RESPIRATORY THERAPIST.CNM Work Phone: Start: 03-14-2025 Urnls dip stick/tabl et rgnt non-auto w/o micrscp Khadra Live CERTIFIED RESPIRATORY THERAPIST.CNM Work Phone: Start: 03-11-2025 Urnls dip stick/tabl et rgnt non-auto w/o micrscp Khadra Live CERTIFIED RESPIRATORY THERAPIST.CNM Work Phone: Start: 03-07-2025 Urnls dip stick/tabl et rgnt non-auto w/o micrscp Annie Plotts CERTIFIED RESPIRATORY THERAPIST.CNM Work Phone: Start: 03-05-2025 Urnls dip stick/tabl et rgnt non-auto w/o micrscp Annie Plotts CERTIFIED RESPIRATORY THERAPIST.CNM Work Phone: Start: 02-25-2025 Urnls dip stick/tabl et rgnt non-auto w/o micrscp Khadra Mancini CERTIFIED RESPIRATORY THERAPIST.CNM Work Phone: Start: 02-11-2025 Urnls dip stick/tabl et rgnt non-auto w/o micrscp Chinyere Lehman MD Work Phone: Start: 10-23-2024 Us preg uterus after 1st trimest 1/ gestation Annie Thakur CERTIFIED RESPIRATORY THERAPIST.CNM Work Phone: Start: 08-28-2024 Us preg uterus after 1st trimest 1/ gestation Annie Thakur CERTIFIED RESPIRATORY THERAPIST.CNM Work Phone: Start: 07-31-2024 Antibody screen KYRA THAKUR Comment on above: Order Comment: Speci men Type: BLOOD SPECIMEN Ordering Facility: [facility] Address: [address] [place] [address] Performed By: #### T SPN #### [facility] CLIA [id number] [address] [place] [address] [place] Start: 07-31-2024 Us uterus l imited 1/> fetuses Annie Thakur CERTIFIED RESPIRATORY THERAPIST.CNM Work Phone: Start: 05-24-2022 Antibody screen SAMANTHA [facility] X Start: 04-23-2022 Basic metabolic 2000 panel [...] ant neoplasm of cervix Cervical Cancer Screening [facility] Start: 07-31-2027 Screening for malign ant neoplasm of cervix Cervical Cancer Screening [facility] Start: 03-18-2025 End: 03-18-2025 Patient encounter procedure OB/Gynecology Comment on above: NST NST only Start: 03-17-2025 Influenza vaccination [facility] Start: 03-14-2025 End: 03-14-2025 Patient encounter procedure Maternal Medicine Comment on above: Growth Sweep Start: 03-13-2025 Nonstress test [facility] Start: 03-13-2025 Obstetric monitoring [facility] Start: 03-13-2025 Vital signs measurements [facility] Start: 03-13-2025 [facility] Start: 03-13-2025 Patient discharge [facility] Start: 03-11-2025 End: 03-11-2025 Patient encounter procedure 03/11/2025 10:30 AM EDT Routine Office Visit OB/Gynecology [address] [place] [address] Khadra Mancini APRN.CN [address] [place] [address] OB OB/Gynecology Comment on above: OB Start: 03-07-2025 End: 03-07-2025 Patient encounter procedure 03/07/2025 1:15 PM EDT Routine Office Visit OB/Gynecology [address] [place] [address] Annie Thakur APRN.CN [address] [place] [address] membrane sweep/OK per CP OB/Gynecology Comment on above: membrane sweep/OK pe r CP Start: 03-05-2025 End: 03-05-2025 Patient encounter procedure 03/05/2025 9:00 AM EDT Routine Office Visit OB/Gynecology [address] [place] [address] Annie Thakur APRN.CNCandice [address] [place] [address] OB OB/Gynecology Comment on above: OB Start: 02-25-2025 End: 02-25-2025 Patient encounter procedure 02/25/2025 8:00 AM EDT Routine Office Visit OB/Gynecology [address] [place] [address] Khadra Mancini APRN.CNCandice [address] [place] [address] OB OB/Gynecology Comment on above: OB Start: 02-18-2025 End: 02-18-2025 Patient encounter procedure 02/18/2025 10:30 AM EDT Routine Office Visit OB/Gynecology [address] [place] [address] Khadra Mancini APRN.CNM [address] [place] [address] OB OB/Gynecology Comment on above: OB Start: 02-11-2025 End: 02-11-2025 Patient encounter procedure 02/11/2025 8:40 AM EDT Routine Office Visit OB/Gynecology [address] [place] [address] Chinyere Friend MD [address] [place] [address] OB OB/Gynecology Comment on above: OB Start: 01-28-2025 End: 01-28-2025 Patient encounter procedure 01/28/2025 8:30 AM EDT Routine Office Visit OB/Gynecology [address] [place] [address] Arthur Conklin MD [address] [place] [address] OB OB/Gynecology Comment on above: OB Start: 01-14-2025 End: 01-14-2025 Patient encounter procedure 01/14/2025 8:00 AM EDT Routine Office Visit OB/Gynecology [address] [address] Khadra Mancini APRN.CNM [address] [place] [address] OB OB/Gynecology Comment on above: OB Start: 12-31-2024 End: 12-31-2024 Patient encounter procedure 12/31/2024 8:00 AM EDT Routine Office Visit OB/Gynecology [address] [place] [address] Khadra Mancini APRN.CNM [address] [place] [address] OB OB/Gynecology Comment on above: OB Start: 12-17-2024 End: 12-17-2024 Patient encounter procedure 12/17/2024 10:00 AM EDT Routine Office Visit OB/Gynecology [address] [place] [address] Khadra Mancini APRN.CNM [address] [place] [address] OB OB/Gynecology Comment on above: OB Start: 12-17-2024 End: 12-17-2024 ambulatory 12/17/2024 9:45 AM EDT Results Only Kaylan Antonywn [facility] [address] [place] [address] Glucose Test [facility] Comment on above: Glucose Test Start: 11-19-2024 End: 02-18-2025 ANEMIA REFLEX PANEL ANEMIA REFLEX PANEL Lab Routine Screening for diabetes mellitus Expected: 11/19/2024, Expires: 02/18/2025 [facility] Comment on above: Expected: 11/19/2024 , Expires: 02/18/2025 Start: 11-19-2024 End: 11-19-2025 GESTATIONAL GLUCOSE SCREEN, 1-HOUR, 50 GRAM, NON-FASTING GESTATIONAL GLUCOSE SCREEN, 1-HOUR, 50 GRAM, NON-FASTING Lab Routine Screening for diabetes mellitus Expected: 11/19/2024, Expires: 11/19/2025 [facility] Work Phone: Comment on above: Expected: 11/19/2024 , Expires: 11/19/2025 Start: 11-19-2024 End: 11-19-2025 SYPHILIS TREPONEMAL W/REFLEX SYPHILIS TREPONEMAL W/REFLEX Lab Routine Screening for diabetes mellitus Expected: 11/19/2024, Expires: 11/19/2025 [facility] Comment on above: Expected: 11/19/2024 , Expires: 11/19/2025 Start: 11-19-2024 End: 11-19-2024 Patient encounter procedure 11/19/2024 11:15 AM EDT Routine Office Visit OB/Gynecology [address] [place] [address] Khadra Mancini APRN.CNM [address] [place] [address] OB OB/Gynecology Comment on above: OB Start: 10-23-2024 End: 10-23-2024 Patient encounter procedure 10/23/2024 9:45 AM EDT Routine Office Visit OB/Gynecology [address] [place] [address] Annie Thakur APRN.CNCandice [address] [place] [address] Anatomy/OB OB/Gynecology Comment on above: Anatomy/OB Start: 10-23-2024 End: 10-23-2024 Patient encounter procedure 10/23/2024 8:30 AM EDT Routine Office Visit Maternal Medicine [address] [place] [address] Anatomy/OB Maternal Medicine Comment on above: Anatomy/OB Start: 09-24-2024 End: 09-24-2024 Patient encounter procedure 09/24/2024 9:45 AM EDT Routine Office Visit OB/Gynecology [address] [place] [address] Khadra Mancini APRN.CNM [address] [place] [address] OB Routine OB/Gynecology Comment on above: OB Routine Start: 08-28-2024 End: 08-28-2024 Patient encounter procedure Maternal Medicine Comment on above: Nuchal Start: 07-31-2024 End: 10-30-2024 ANEMIA REFLEX PANEL [facility] Work Phone: Comment on above: Expected: 07/31/2024 , Expires: 10/30/2024 Start: 07-31-2024 End: 10-30-2024 Hemoglobin A1c in Blood [facility] Comment on above: Expected: 07/31/2024 , Expires: 10/30/2024 Start: 07-31-2024 End: 10-30-2024 Hepatitis B virus surface Ag [Presence] in Serum [facility] Comment on above: Expected: 07/31/2024 , Expires: 10/30/2024 Start: 07-31-2024 End: 10-30-2024 Hepatitis C virus Ab [Presence] in Serum [facility] Comment on above: Expected: 07/31/2024 , Expires: 10/30/2024 Start: 07-31-2024 End: 10-30-2024 HIV 1+2 Ab [Presence] in Serum or Plasma by Immunoassay [facility] Comment on above: Expected: 07/31/2024 , Expires: 10/30/2024 Start: 07-31-2024 End: 07-31-2025 OBSTETRIC ULTRASOUND WHI OBSTETRIC ULTRASOUND WHI Anc Imaging Routine Encounter for supervision of normal in multigravida 8 weeks gestation of Expected: 07/31/2024, Expires: 07/31/2025 [facility] Comment on above: Expected: 07/31/2024 , Expires: 07/31/2025 Start: 07-31-2024 End: 10-30-2024 RUBELLA IGG ANTIBODY [facility] Comment on above: Expected: 07/31/2024 , Expires: 10/30/2024 Start: 07-31-2024 End: 10-30-2024 SYPHILIS TREPONEMAL W/REFLEX [facility] Comment on above: Expected: 07/31/2024 , Expires: 10/30/2024 Start: 07-31-2024 End: 10-30-2024 TYPE + SCREEN [facility] Comment on above: Expected: 07/31/2024 , Expires: 10/30/2024 Start: 05-19-2024 Screening for malign ant neoplasm of cervix Cervical Cancer Screening [facility] Start: 09-01-2024 Covid-19 Vaccine ( season) Covid-19 Vaccine ( season) [facility] Start: 03-17-2024 Influenza vaccination Influenza Vacc ine (#1) [facility] Start: 01-18-2024 Wellness Exam Wellness Exam [facility] Start: 04-27-2022 End: 04-27-2022 ambulatory 04/27/2022 OB Initial Visit terry cloth cutter hand Max Lau, CERTIFIED RESPIRATORY THERAPIST [facility] [address] [place] [address] [facility] Start: 02-14-2022 Refusal of treatment by patient INFLUENZA VACCINE [facility] Start: 2021 HPV Vaccine (1 - 3-d ose SCDM series) HPV Vaccine (1 - 3-dose SCDM series) [facility] Start: 11-26-2019 COTEST / HPV COTEST / HPV [facility] Start: 11-26-2015 CERVICAL CANCER SCREENING CERVICAL CANCER SCREENING [facility] Start: 11-26-2015 Microscopic observat ion [Identifier] in Cervix by Cyto stain PAP SMEAR [facility] Start: 11-26-2015 Screening for malign ant neoplasm of cervix Cervical Cancer Screening [facility] Start: 2013 DTaP/Tdap/Td VACCINE S (1 - Tdap) DTaP/Tdap/Td VACCINES (1 - Tdap) [facility] Start: 2013 Hepatitis B Vaccine (1 of 3 - 19+ 3-dose series) Hepatitis B Vaccine (1 of 3 - 19+ 3-dose series) [facility] Start: 2013 Third diphtheria, tetanus and acellular pertussis (DTaP) vaccination DTaP,Tdap,and Td Vaccine (1 - Tdap) [facility] Start: 2013 Urine microalbumin profile DTaP,Tdap,Td Vaccine (1 - Tdap) [facility] Start: 2012 Anxiety Screening Anxiety Screening [facility] Start: 2012 Depression Screening Depression Scre ening [facility] Start: 2012 HEPATITIS C SCREENING HEPATITIS C SC REENING [facility] Start: 2009 HIV SCREENING HIV SCREENING [facility] Start: 1997 ANNUAL PREVENTIVE PHYSICAL (INCLUDES MAAP) ANNUAL PREVENTIVE PHYSICAL (INCLUDES MAAP) [facility] Start: 05-28-1995 COVID-19 VACCINE (#1) COVID-19 VACCI NE (#1) [facility] Start: 1994 HEPATITIS B VACCINES (1 of 3 - 3-dose series) HEPATITIS B VACCINES (1 of 3 - 3-dose series) [facility] Bacteria identified in Urine by Culture BACTERIAL CULTURE, URINE Microbiology Routine Encounter for supervision of normal in multigravida 8 weeks gestation of 07/31/2024 9:53 AM [facility] Chlamydia trachomatis+Neisseria gonorrhoeae DNA [Presence] in Unspecified specimen by MICHAEL with probe detection GONORRHEA/CHLAMYDIA NAAT Lab Routine Encounter for supervision of normal in multigravida 8 weeks gestation of 07/31/2024 9:53 AM [facility] nonstress test NON-S TRESS TEST Procedures Routine Encounter for supervision of other normal in third trimester (HCC) 40 weeks gestation of (HCC) Ordered: 03/11/2025 [facility] Comment on above: Ordered: 03/11/2025 HIGH RISK HUMAN PAPILLOMA VIRUS (HPV), PCR FOR DETECTION AND GENOTYPING HIGH RISK HUMAN PAPILLOMA VIRUS (HPV), PCR FOR DETECTION AND GENOTYPING Lab Routine Encounter for supervision of normal in multigravida 8 weeks gestation of 07/31/2024 9:53 AM [facility] End: 02-23-2026 OBSTETRIC ULTRASOUND WHI OBSTETRIC ULTRASOUND WHI Anc Imaging Routine Encounter for supervision of other normal in third trimester (HCC) 40 weeks gestation of (HCC) Once per month for 3 Occurrences starting 03/11/2025 until 02/23/2026 [facility] Work Phone: Comment on above: Once per month for 3 Occurrences starting 03/11/2025 until 02/23/2026 PAP TEST PAP TEST Lab Emerson borjas Encounter for supervision of normal in multigravida 8 weeks gestation of 07/31/2024 9:53 AM [facility] Patient Education Kick Counts ED False Labor OB Triage: Return to Hospital or Notify Physician if you Experience: [facility] Work Phone: ROUTINE, GR OUP B STREPTOCOCCUS BY PCR ROUTINE, GROUP B STREPTOCOCCUS BY PCR Microbiology Routine Encounter for supervision of other normal in third trimester (HCC) 02/11/2025 9:00 AM EDT [facility] Work Phone: URINE OB DIP B/O URINE OB DIP B/ O Lab Routine 34 weeks gestation of ([facility]) Encounter for supervision of other normal in third trimester ([facility]) Ordered: 01/28/2025 [facility] Work Phone: Comment on above: Ordered: 01/28/2025 Immunizations Immunization Date Immunization Notes Care Provider Musa chamorro 05-21-2018 influenza virus vacc ine, unspecified formulation Ling Daly CERTIFIED RESPIRATORY THERAPIST-SHAPER OPERATOR Work Phone: [facility] Payers Date Payer Category Payer Self-pay 2022 Managed Care (Private) [facility] [employer] [id number] 08-17-2022 Medicaid [id number] 08-17-2022 Medicaid [id number] 07-17-2022 Unknown [id number] 06-18-2020 Private Health Insurance [id number] 07-17-2014 Unknown [id number] 1995 Unknown [id number] [id number]. 201 1995 Unknown [id number] 2.16.840.1.822111.3.579.2. 201 1994 Unknown [id number] .16.840.1.046978.3.579.2. 201 Private Health Insurance [facility] PLUS [id number] Effective for all dates [address] [address] [place] [address] EPO [id number] Unknown [id number] 2.16.840.1.817709.3.579.2. 246 Unknown [id number] 2.16840.1.477266.3.579.2. 246 Unknown [id number] 2.16.840.1.553459.3.579.2. 246 Unknown [id number] 2.16840.1.117694.3.579.2. 246 Unknown [id number] 2.16840.1.902938.3.579.2. 246 Unknown [id number] 2.16840.1.821357.3.579.2. 246 Unknown [id number] 2.840.1.238790.3.579.2. 246 Unknown [id number] 2.840.1.363848.3.579.2. 246 Unknown [id number] 2.16840.1.989352.3.579.2. 246 Unknown [id number] 2.16.840.1.112320.3.579.2. 246 Unknown [id number] 2.16840.1.538875.3.579.2. 246 Unknown [id number] 2.840.1.086719.3.579.2. 246 Unknown [id number] 2.840.1.962919.3.579.2. 246 Unknown [id number] 2.840.1.393552.3.579.2. 246 Unknown [id number] Unknown [id number] Unknown [id number] Unknown [id number] Unknown [id number] 2.840.1.015250.3.579.2. 462 Social History Date Type Detail Facility Start: 02-02-2011 End: 04-12-2022 Tobacco smoking status NHIS Never smoked tobacco [facility] Start: 02-02-2011 End: 04-12-2022 Tobacco use and exposure Smokeless tobacco non-user [facility] Start: 04-23-2022 End: 03-07-2025 Alcohol intake Ex-drinker (finding) [facility] Start: 1995 Sex Assigned At Not on file P [facility] Start: 04-13-2022 End: 04-23-2022 Exposure to SARS-CoV-2 (event) Not sure [facility] Start: 10-25-2023 Alcoholic beverage intake Curr ent non-drinker of alcohol (finding) [facility] Start: 10-25-2023 End: 07-31-2024 History of Social function [facility] Start: 10-25-2023 End: 07-31-2024 Tobacco use panel [facility] The thought of jt archer myself has occurred to me Never [facility] Start: 06-17-2012 National Score (1-10 0), lower number is lower risk 60 [facility] Start: 06-15-2024 [facility] Start: 1995 Sex assigned at Female [facility] Start: 07-30-2024 Gender identity Identifies as female gender (finding) [facility] Start: 07-30-2024 Sexual orientation Heterosexual (evelyne cade) [facility] Goals Date Patient Goal Desired Activity /State Personal health goal Comment on above: Formatting of this n ote might be different from the original. Pt to follow up with a pap smear in 2 mo Personal health goal Functional Status Date Assessment Result Facility 05-18-2021 Are you deaf, or do you have serious difficulty hearing No 05/18/2021 9:50 AM Alana Andrews CMA [facility] Work Phone: 05-18-2021 Are you blind, or do you have serious difficulty seeing, even when wearing glasses No 05/18/2021 9:50 AM Alana Andrews CMA [facility] 05-18-2021 Do you have serious difficulty walking or climbing stairs No 05/18/2021 9:50 AM Alana Andrews CMA [facility] 05-18-2021 Do you have difficul ty dressing or bathing No 05/18/2021 9:50 AM EDT Alana Murphy, ROCIO [facility] 05-18-2021 Because of a physica l, mental, or emotional condition, do you have difficulty doing errands alone such as visiting a physician's office or shopping No 05/18/2021 9:50 AM EDT Alana Murphy, ASBESTOS COVERER [facility] Mental Status Date Assessment Result Facility 05-18-2021 Because of a physica l, mental, or emotional condition, do you have serious difficulty concentrating, remembering, or making decisions No 05/18/2021 9:50 AM EDT Alana Murphy, ROCIO [facility] Clinical Notes 04-23-2022 to 03-14-2025 Quick Notes - Khadra Mancini APRN.[facility] - 03/14/2025 1:40 PM EDTCKhadra salinas APRN.[facility] - 03/14/2025 1:40 PM EDTPrenatal Quick Notes [...] discussed with the Patient or Patient's Authorized Youth Services Specialist. As applicable, any other physician, advance practice provider, medical student, or other health professional student that will be observing or involved in the sensitive examination for educational or training purposes was discussed with the Patient or Authorized Youth Services Specialist. The Patient or Authorized Youth Services Specialist has agreed to proceed with the sensitive examination. ASSESSMENT/PLAN: 1. Encounter for supervision of other normal in third trimester -IOL on 03/21 at 0700 with MAGDIEL Stinson to manage 2. 40 weeks gestation of 3. Multiparity PTL precautions reviewed and when to call Khadra Mancini APRN.CNM [facility] 03-14-2025 History of Presen t illness Narrative [...] Khadra Mancini APRN.CNM documented in this encounter [facility] 03-14-2025 Miscellaneous Notes Formattin g of this [...] discussed with the Patient or Patient's Authorized Youth Services Specialist. As applicable, any other physician, advance practice provider, medical student, or other health professional student that will be observing or involved in the sensitive examination for educational or training purposes was discussed with the Patient or Authorized Youth Services Specialist. The Patient or Authorized Youth Services Specialist has agreed to proceed with the sensitive examination. ASSESSMENT/PLAN: 1. Encounter for supervision of other normal in third trimester -IOL on 03/21 at 0700 with MAGDIEL Stinson to manage 2. 40 weeks gestation of 3. Multiparity PTL precautions reviewed and when to call Khadra Mancini APRN.CNCandice documented in this encounter [facility] 03-14-2025 Note Indication Evaluation of growth, Evaluation [...] survey as detailed below. Recommendations - Per digital media director, NST was performed and was reactive - [...] 5 oz EFW by: Hadlock (HC-AC-FL) Extended Clinic Specialist 7.1 mm Extremities / Bony Struc FL [...] 03/14/2025 10:01 AM EDT SEQUENTIAL SCREENINGS The [facility] offers sequential screenings for women who are [...] It will require an appointment with our library circulation technician. This is not an ultrasound performed [...] the above symptoms, contact our office at [phone] and ask to speak with a nurse. After hours, you can call doctors registry at [phone] OR call [facility] at [phone] and ask to have the doctor buckle and button maker paged. If you consider this an emergency, dial 1-3-8 or go to your nearest emergency department. NEED HELP? Are you dealing with a violent or abusive relationship? Are you a victim of rape or sexual assult? Call [facility] ([facility] 24 hour Crisis Hotline: 163.109.4048 or 093-349-2664. MANUAL Your Guide to a Healthy manual is now on-line. [email or web address] to download your free copy documented in this encounter [facility] 03-13-2025 History and physi jaxson note [facility] 03-12-2025 Telephone encounter Note 40w4d Patient called [...] aware that MAGDIEL and CP are not buckle and button maker today. L&D notified. Updated H&P faxed to L&d. Patient lives minutes away from the hospital. Nica Law RN [facility] 03-12-2025 Miscellaneous Notes 40w4d Patient called to [...] aware that MAGDIEL and CP are not buckle and button maker today. L&D notified. Updated H&P faxed to L&d. Patient lives minutes away from the hospital. Nica Law RN documented in this encounter [facility] 03-11-2025 Progress note Formatting of t his [...] discussed with the Patient or Patient's Authorized Youth Services Specialist. As applicable, any other physician, advance practice provider, medical student, or other health professional student that will be observing or involved in the sensitive examination for educational or training purposes was discussed with the Patient or Authorized Youth Services Specialist. The Patient or Authorized Youth Services Specialist has agreed to proceed with the sensitive [...] RTO in 3 days Khadra Mancini APRN.CNM [facility] 03-11-2025 Miscellaneous Notes MAGDIEL-S: Yanet Banks is [...] discussed with the Patient or Patient's Authorized Youth Services Specialist. As applicable, any other physician, advance practice provider, medical student, or other health professional student that will be observing or involved in the sensitive examination for educational or training purposes was discussed with the Patient or Authorized Youth Services Specialist. The Patient or Authorized Youth Services Specialist has agreed to proceed with the sensitive [...] Khadra Mancini APRN.CNM documented in this encounter [facility] 03-11-2025 Instructions Carli Youngblood MA - 03/11/2025 10:28 AM EDT SEQUENTIAL SCREENINGS The [facility] offers sequential screenings for women who are [...] It will require an appointment with our library circulation technician. This is not an ultrasound performed [...] the above symptoms, contact our office at [phone] and ask to speak with a nurse. After hours, you can call doctors registry at [phone] OR call [facility] at [phone] and ask to have the doctor buckle and button maker paged. If you consider this an emergency, dial 9-1-6 or go to your nearest emergency department. NEED HELP? Are you dealing with a violent or abusive relationship? Are you a victim of rape or sexual assult? Call [facility] ([facility] 24 hour Crisis Hotline: 180.989.5060 or 823-255-9367. MANUAL Your Guide to a Healthy manual is now on-line. [email or web address] ancyGuide to download your free copy documented in this encounter [facility] 03-07-2025 Telephone encounter Note Faxed signed angela consent to [facility] 03/07/2025. Erasto Brunson LPN [facility] 03-07-2025 Miscellaneous Notes Faxed signed angela consent to [facility] 03/07/2025. Erasto Brunson LPN documented in this encounter [facility] 03-07-2025 Progress note Formatting of t his [...] or sooner if needed Annie Thakur APRN.CNM [facility] 03-07-2025 Miscellaneous Notes S: Yanet Banks is [...] Annie Thakur APRN.CNM documented in this encounter [facility] 03-07-2025 Instructions Erasto Brunson LPN - 03/07/2025 1:09 PM EDT SEQUENTIAL SCREENINGS The [facility] offers sequential screenings for women who are [...] It will require an appointment with our library circulation technician. This is not an ultrasound performed [...] the above symptoms, contact our office at [phone] and ask to speak with a nurse. After hours, you can call doctors registry at [phone] OR call [facility] at [phone] and ask to have the doctor buckle and button maker paged. If you consider this an emergency, dial 9-8- or go to your nearest emergency department. NEED HELP? Are you dealing with a violent or abusive relationship? Are you a victim of rape or sexual assult? Call [facility] ([place]) 24 hour Crisis Hotline: 706.910.8641 or 850-073-2308. MANUAL Your Guide to a Healthy manual is now on-line. [email or web address] [email or web address] to download your free copy documented in this encounter [facility] 03-05-2025 Progress note Formatting of t his [...] tender ASSESSMENT/PLAN: 1. 39 weeks gestation of ([facility]) - ICD9: V22.2, ICD10: Z3A.39 (primary diagnosis) 2. Encounter for supervision of other normal in third trimester ([facility]) - ICD9: V22.1, - R/B of membrane sweep discussed and questions answered - Desires water - needs to sign consent - Plan is to return to office on Monday for CE with membrane sweep - Labor precautions reviewed and when to call Annie Thakur APRN.CNM [facility] 03-05-2025 Miscellaneous Notes S: Yanet Banks is [...] tender ASSESSMENT/PLAN: 1. 39 weeks gestation of ([facility]) - ICD9: V22.2, ICD10: Z3A.39 (primary diagnosis) 2. Encounter for supervision of other normal in third trimester ([facility]) - ICD9: V22.1, - R/B of membrane sweep discussed and questions answered - Desires water - needs to sign consent - Plan is to return to office on Monday for CE with membrane sweep - Labor precautions reviewed and when to call Annie Thakur APRN.CNM documented in this encounter [facility] 03-05-2025 Instructions Erasto Brunson LPN - 03/05/2025 8:38 AM EDT SEQUENTIAL SCREENINGS The [facility] offers sequential screenings for women who are [...] It will require an appointment with our library circulation technician. This is not an ultrasound performed [...] the above symptoms, contact our office at [phone] and ask to speak with a nurse. After hours, you can call doctors registry at [phone] OR call [facility] at [phone] and ask to have the doctor buckle and button maker paged. If you consider this an emergency, dial 9-1-1 or go to your nearest emergency department. NEED HELP? Are you dealing with a violent or abusive relationship? Are you a victim of rape or sexual assult? Call [facility] ([place]) 24 hour Crisis Hotline: 707.557.5699 or 648-761-3428. MANUAL Your Guide to a Healthy manual is now on-line. [email or web address] ancyGuide to download your free copy documented in this encounter [facility] 02-25-2025 Note HNO ID: [id number] Author: NIRU CASAREZ MA Service: ? Author Type: Security Orderly Type: Progress Notes Filed: 02/25/2025 14:13 Note Text: POPULATION HEALTH NAVIGATION OUTREACH Action/FYI Clinic Specialist updated per documentation. Reason for Outreach Medicaid OB/Peds Care Gaps due: N/A Patient Contacted: Unable or unnecessary to reach patient: sight effects specialist added Navigation Signature: Niru Birch MA February 25, 2025 12:14 PM [facility] 02-25-2025 History of Presen t illness Narrative POPULATION HEALTH NAVIGATION OUTREACH Action/FYI Clinic Specialist updated per documentation. Reason for Outreach Medicaid OB/Peds Care Gaps due: N/A Patient Contacted: Unable or unnecessary to reach patient: [place] sight effects specialist added Navigation Signature: Niru Birch MA February 25, 2025 12:14 PM documented in this encounter [facility] 02-25-2025 Progress note Formatting of t his [...] RTO in 1 weeks Khadra Mancini APRN.CNM [facility] 02-25-2025 Miscellaneous Notes MAGDIEL-S: Yanet Banks is [...] Khadra Mancini APRN.CNM documented in this encounter [facility] 02-25-2025 Instructions Carli Youngblood MA - 02/25/2025 8:00 AM EDT SEQUENTIAL SCREENINGS The [facility] offers sequential screenings for women who are [...] It will require an appointment with our library circulation technician. This is not an ultrasound performed [...] the above symptoms, contact our office at [phone] and ask to speak with a nurse. After hours, you can call doctors registry at [phone] OR call [facility] at [phone] and ask to have the doctor buckle and button maker paged. If you consider this an emergency, dial 1-4-0 or go to your nearest emergency department. NEED HELP? Are you dealing with a violent or abusive relationship? Are you a victim of rape or sexual assult? Call [facility] ([place]) 24 hour Crisis Hotline: 664.159.1133 or 554-451-4068. MANUAL Your Guide to a Healthy manual is now on-line. Visit [email or web address] ancyGuide to download your free copy documented in this encounter [facility] 02-25-2025 Note Patient Outreach (NE TNAV) YANET BANKS ([id number]) 1995 F Date Time Provider Department 02/25/25 NIRU CASAREZ During your visit today, we recorded the following information about you: iNru Casarez MA 02/25/2025 2:13 PM Signed POPULATION HEALTH NAVIGATION OUTREACH Action/FYI Clinic Specialist updated per documentation. Reason for Outreach Medicaid OB/Peds Care Gaps due: N/A Patient Contacted: Unable or unnecessary to reach patient: [place] sight effects specialist added Navigation Signature: Niru Birch MA February [...] Encounter Status:Closed by NIRU CASAREZ on 02/25/25 [facility] 02-11-2025 Progress note Formatting of [...] was discussed with the patient or authorized community health program representative. The patient or authorized community health program representative has agreed to proceed with the sensitive examination. @ 36.3 weeks Assessment & Plan Encounter for supervision of other normal in third trimester ([facility]) Orders: URINE OB DIP B/O ROUTINE, GROUP B STREPTOCOCCUS BY PCR 36 weeks gestation of ([facility]) GBS today Kick counts and labor reviewed RTO weekly Vertex confirmed on bedside US Orders: URINE OB DIP B/O Chinyere Enamorado MD [facility] Work Phone: 02-11-2025 Miscellaneous Notes DM-Pt doing well. Denies vaginal Bleeding, Leaking fluid, or regular Contractions. Pt reports good movement Physical Exam: Gen: female in no apparent distress Abd: soft, Gravid. Non tender to palpation. See flow sheet Participation of a fellow, resident, medical student, or advanced practice provider student in performing the sensitive examination was discussed with the patient or authorized community health program representative. The patient or authorized community health program representative has agreed to proceed with the sensitive examination. @ 36.3 weeks Assessment & Plan Encounter for supervision of other normal in third trimester ([facility]) Orders: URINE OB DIP B/O ROUTINE, GROUP B STREPTOCOCCUS BY PCR 36 weeks gestation of ([facility]) GBS today Kick counts and labor reviewed RTO weekly Vertex confirmed on bedside US Orders: URINE OB DIP B/O Chinyere Enamorado MD documented in this encounter [facility] 02-11-2025 Instructions Melida Le MA - 02/11/2025 8:40 AM EDT SEQUENTIAL SCREENINGS The [facility] offers sequential screenings for women who are [...] It will require an appointment with our library circulation technician. This is not an ultrasound performed [...] the above symptoms, contact our office at [phone] and ask to speak with a nurse. After hours, you can call doctors registry at [phone] OR call [facility] at [phone] and ask to have the doctor buckle and button maker paged. If you consider this an emergency, dial -9 or go to your nearest emergency department. NEED HELP? Are you dealing with a violent or abusive relationship? Are you a victim of rape or sexual assult? Call [facility] ([facility] 24 hour Crisis Hotline: 986.463.5805 or 053-074-9460. MANUAL Your Guide to a Healthy manual is now on-line. Visit [email or web address] [email or web address] to download your free copy documented in this encounter [facility] 01-29-2025 Telephone encounter Note Patient notified and voiced understanding. Lolis Anders RN [facility] 01-29-2025 Miscellaneous Notes Patient notified and voiced [...] Nica Law RN documented in this encounter [facility] 01-28-2025 Telephone encounter Note Agree call if pain is severe, persistent or associated with other symptoms such as bleeding, LOF. For pain in advise warm baths or showers, rest, and Tylenol PRN. If pain does not improve with that can call [facility] Work Phone: 01-28-2025 Telephone encounter Note 34w3d Patient seen in office today and forgot to mention some pain she had on Monday after she was seen by the Chiropractor. Several hours after she had a side line adjustment on Monday she had a sharp pain in her cervix. Pain rate of 7-8. Said it felt much different than St[place]man Barnett. The pain returned again today after [...] out of the office. Nica Law RN [facility] 01-28-2025 Progress note Formatting of t his note might be different from the original. SW- Pt doing well. No regular ctx. No vb, lof. Good FM PE: Gen- NAD, well appearing Abd- Soft, gravid, NT See flowsheet A/p 34 wk gestation - Discussed eating dates in - Discussed upcoming expectations - RTO 2 wks Arthur Conklin DO [facility] 01-28-2025 Miscellaneous Notes SW- Pt doing well. No regular ctx. No vb, lof. Good FM PE: Gen- NAD, well appearing Abd- Soft, gravid, NT See flowsheet A/p 34 wk gestation - Discussed eating dates in - Discussed upcoming expectations - RTO 2 wks Arthur Conklin DO documented in this encounter [facility] 01-28-2025 Instructions Clifton, NiruNATHANAEL - 01/28/2025 8:38 AM EDT SEQUENTIAL SCREENINGS The [facility] offers sequential screenings for women who are [...] It will require an appointment with our library circulation technician. This is not an ultrasound performed [...] the above symptoms, contact our office at [phone] and ask to speak with a nurse. After hours, you can call doctors registry at [phone] OR call [facility] at [phone] and ask to have the doctor buckle and button maker paged. If you consider this an emergency, dial 9--1 or go to your nearest emergency department. NEED HELP? Are you dealing with a violent or abusive relationship? Are you a victim of rape or sexual assult? Call [facility] ([place]) 24 hour Crisis Hotline: 450.892.6393 or 029-846-8876. MANUAL Your Guide to a Healthy manual is now on-line. [email or web address] ancyGuide to download your free copy documented in this encounter [facility] 01-14-2025 Progress note Formatting of t his [...] RTO in 2 weeks Khadra Mancini APRN.CNM [facility] 01-14-2025 Miscellaneous Notes MAGDIEL-S: Yanet Banks is [...] Khadra Mancini APRN.CNM documented in this encounter [facility] 01-14-2025 Instructions Khadra Mancini APRN.CNM - 01/14/2025 [...] an easy pie crust in the food safety specialist. Add soaked dates to homemade nut butter for a sweet treat. Add dates to eduardo homemade salad dressing. Add dates during easily with these yummy (paleo friendly) bars made from dates. What Is Red Raspberry Hermann Tea? Red raspberry leaf tea comes from [...] , and too. How Much Red Raspberry Hermann Tea to Drink? With your doctor or feather washer s approval, start with 1 cup of [...] because of uterine cramping. Is Red Raspberry Hermann Tea the Same as Raspberry Hermann Tea? How About Plain Old Raspberry Tea? Sometimes. You really need to look at the ingredients to be sure. Note that there is no difference between red raspberry leaf and raspberry leaf. [employer] or [employer] - [place] Raspberry Hermann Tea are two good brands. The red [...] outlined in this article. The [employer] www.Pinpoint MD I named this 'circuit' after my friend [...] sideways, 2 at a time, (have a seat joiner downstairs of you!), take a walk outside [...] the pelvis. Aziza Amos: Circuit Creator - www.mountainburgLenskart.comundbirthcollective.[facility] Corrie Arevalo, CD, BDT (NICOLE), LCCE, FACCE: Supporting Content - www.corrieAppscendclemente.AnovaStorm Rose Gee: Photography - www.InEdge Pastora Garcia CD/CDT (ALIDA): Print and Insulation Machine Operator - www.[employer] Circuit Masterminds [employer] www.Pinpoint MD What is my perineum? Your perineum is [...] the above symptoms, contact our office at [phone] and ask to speak with a nurse. After hours, you can call doctors registry at [phone] OR call [facility] at [phone] and ask to have the doctor buckle and button maker paged. If you consider this an emergency, dial 9-0-1 or go to your nearest emergency department. NEED HELP? Are you dealing with a violent or abusive relationship? Are you a victim of rape or sexual assult? Call [facility] ([place]) 24 hour Crisis Hotline: 774.739.6824 or 174-874-9233. MANUAL Your Guide to a Healthy manual is now on-line. Visit [email or web address]/HealthyPregn ancyGuide to download your free copy documented in this encounter [facility] 01-01-2025 Telephone encounter Note 3rd risk assessment form submitted 01/01/2025. Nica Uriarte RN [facility] 01-01-2025 Miscellaneous Notes 3rd risk assessment form submitted 01/01/2025. Nica Uriarte RN documented in this encounter [facility] 12-31-2024 Progress note Formatting of t his [...] RTO in 2 weeks Khadra Mancini APRN.CNM [facility] 12-31-2024 Miscellaneous Notes MAGDIEL-S: Yante Banks is a 29 year [...] Khadra Mancini APRN.CNM documented in this encounter [facility] 12-31-2024 Instructions Khadra Mancini APRN.CNM - 12/31/2024 8:07 AM EDT [facility] [address] [place] [address] [facility] [address] [place], [place] [address] [facility] [address] [place] [address] [facility] [address] [place] [address] [email or web address].[email or web address] Data Networks [facility] [address] [place] [address] [facility] [address] [place] [address] [email or web address] [facility] [address], [place] [address] [email or web address] [facility] [phone] [employer] [address] [place] [address] [facility] [address] [address] Have [place] office also [phone] https://www.Perk Dynamics/Dandong Xintai Electricsfreeman heart institute-office/ [facility] [phone] [address] [facility] [address] [place] [address] [facility], [address] [address] [email or web address] [facility] [address] [place] [address] [email or web address] [email or web address] SIGNS AND SYMPTOMS OF LABOR 1. Contractions every 10 minutes or more often 2. Clear, pink, or brownish fluid (water) leaking from vagina 3. Feeling that baby is pushing down, pressure 4. Low, dull backache 5. Cramps that feel like a period 6. Cramps with or without diarrhea If you notice any of the above symptoms, contact our office at [phone] and ask to speak with a nurse. After hours, you can call doctors registry at [phone] OR call [facility] at [phone] and ask to have the doctor buckle and button maker paged. If you consider this an emergency, dial 9-- or go to your nearest emergency department. NEED HELP? Are you dealing with a violent or abusive relationship? Are you a victim of rape or sexual assult? Call [facility] ([place]) 24 hour Crisis Hotline: 148.197.8885 or 913-864-5643. MANUAL Your Guide to a Healthy manual is now on-line. Visit [email or web address]/HealthyPregn ancyGuide to download your free copy documented in this encounter [facility] 12-17-2024 Progress note Formatting of t his [...] to call RTO in 2 weeks Khadra Mnacini APRN.CNM [facility] Work Phone: 12-17-2024 Miscellaneous Notes MAGDIEL-S: Yanet [...] Khadra Mancini APRN.CNM documented in this encounter [facility] 12-17-2024 Instructions Khadra Mancini APRN.CNM - 12/17/2024 [...] the above symptoms, contact our office at [phone] and ask to speak with a nurse. After hours, you can call doctors registry at [phone] OR call [facility] at [phone] and ask to have the doctor buckle and button maker paged. If you consider this an emergency, dial 9-1-6 or go to your nearest emergency department. NEED HELP? Are you dealing with a violent or abusive relationship? Are you a victim of rape or sexual assult? Call [facility] ([place]) 24 hour Crisis Hotline: 980.421.8423 or 003-984-9568. MANUAL Your Guide to a Healthy manual is now on-line. [email or web address]/HealthyPregn ancyGuide to download your free copy documented in this encounter [facility] 11-19-2024 Progress note Formatting of t his [...] when to call RTO in 4 weeks [facility] 11-19-2024 Miscellaneous Notes MAGDIEL-S: Yanet Banks is [...] in 4 weeks documented in this encounter [facility] 11-19-2024 Instructions Raquel Beatty MA - 11/19/2024 11:23 AM EDT SEQUENTIAL SCREENINGS The [facility] offers sequential screenings for women who are [...] It will require an appointment with our library circulation technician. This is not an ultrasound performed [...] the above symptoms, contact our office at [phone] and ask to speak with a nurse. After hours, you can call doctors registry at [phone] OR call [facility] at [phone] and ask to have the doctor buckle and button maker paged. If you consider this an emergency, dial 9-1- or go to your nearest emergency department. NEED HELP? Are you dealing with a violent or abusive relationship? Are you a victim of rape or sexual assult? Call [facility] ([place]) 24 hour Crisis Hotline: 875.579.9303 or 391-900-7223. MANUAL Your Guide to a Healthy manual is now on-line. Visit [email or web address]/HealthyPregn ancyGuide to download your free copy documented in this encounter [facility] 10-24-2024 Telephone encounter Note 2nd risk assessment form submitted 10/24/2024. Nica Uriarte RN [facility] 10-24-2024 Miscellaneous Notes 2nd risk assessment form submitted 10/24/2024. Nica Uriarte RN documented in this encounter [facility] 10-23-2024 Progress note Formatting of t his [...] - RTO 4 weeks Annie Thakur APRN.CNM [facility] 10-23-2024 Miscellaneous Notes S: Yanet Banks is [...] Annie Thakur APRN.CNM documented in this encounter [facility] 10-23-2024 Instructions Erasto Brunson LPN - 10/23/2024 8:42 AM EDT SEQUENTIAL SCREENINGS The [facility] offers sequential screenings for women who are [...] It will require an appointment with our library circulation technician. This is not an ultrasound performed [...] the above symptoms, contact our office at [phone] and ask to speak with a nurse. After hours, you can call doctors registry at [phone] OR call [facility] at [phone] and ask to have the doctor buckle and button maker paged. If you consider this an emergency, dial 9-1-0 or go to your nearest emergency department. NEED HELP? Are you dealing with a violent or abusive relationship? Are you a victim of rape or sexual assult? Call [facility] ([place]) 24 hour Crisis Hotline: 533.787.6858 or 636-007-1976. MANUAL Your Guide to a Healthy manual is now on-line. Visit [email or web address]/HealthyPregn ancyGuide to download your free copy documented in this encounter [facility] 09-24-2024 Progress note Formatting of t his [...] RTO in 4 weeks Khadra Mancini APRN.CNM [facility] Work Phone: 09-24-2024 Miscellaneous Notes MAGDIEL-S: Yanet [...] Khadra Mancini APRN.CNM documented in this encounter [facility] 09-24-2024 Instructions Rodo Singleton MA - 09/24/2024 9:34 AM EDT SEQUENTIAL SCREENINGS The [facility] offers sequential screenings for women who are [...] It will require an appointment with our library circulation technician. This is not an ultrasound performed [...] the above symptoms, contact our office at [phone] and ask to speak with a nurse. After hours, you can call [employer] registry at [phone] OR call [facility] at [phone] and ask to have the doctor buckle and button maker paged. If you consider this an emergency, dial 9-1-3 or go to your nearest emergency department. NEED HELP? Are you dealing with a violent or abusive relationship? Are you a victim of rape or sexual assult? Call [facility] ([place]) 24 hour Crisis Hotline: 838.538.1447 or 680-561-5647. MANUAL Your Guide to a Healthy manual is now on-line. Visit [email or web address]/HealthyPregn ancyGuide to download your free copy documented in this encounter [facility] 08-28-2024 Progress note Formatting of t his [...] - RTO 4 weeks Annie Thakur APRN.CNM [facility] 08-28-2024 Miscellaneous Notes S: Yanet Banks is [...] Annie Thakur APRN.CNM documented in this encounter [facility] 08-28-2024 Instructions Rodo Singleton MA - 08/28/2024 9:20 AM EST SEQUENTIAL SCREENINGS The [facility] offers sequential screenings for women who are [...] It will require an appointment with our library circulation technician. This is not an ultrasound performed [...] the above symptoms, contact our office at [phone] and ask to speak with a nurse. After hours, you can call doctors registry at [phone] OR call [facility] at [phone] and ask to have the doctor buckle and button maker paged. If you consider this an emergency, dial 9-1-9 or go to your nearest emergency department. NEED HELP? Are you dealing with a violent or abusive relationship? Are you a victim of rape or sexual assult? Call [facility] ([facility] 24 hour Crisis Hotline: 496.913.5145 or 232-491-8499. MANUAL Your Guide to a Healthy manual is now on-line. Visit [email or web address]/HealthyPregn ancyGuide to download your free copy documented in this encounter [facility] 08-01-2024 Telephone encounter Note 1st risk assessment form submitted 08/01/24 Shi Medley RN [facility] 08-01-2024 Miscellaneous Notes 1st risk assessment form submitted 08/01/24 Shi Medley RN documented in this encounter [facility] 07-31-2024 Progress note Formatting of t his note might be different from the original. Patient is here for NOB. See progress note. Annie Thakur APRN.CNM [facility] 07-31-2024 Miscellaneous Notes Patient is here for NOB. See progress note. Annie Thakur APRN.CNM documented in this encounter [facility] 07-30-2024 Note HNO ID: [id number] Author: ANNIE THAKUR APRN.CNM Service: ? Author Type: Space Physicist Type: Progress Notes Filed: 07/31/2024 10:13 Note [...] the following (please check all that apply)? Space Physicist care Social History: Do you have any [...] harming myself has occurred to me. 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 (Pat (more content not included)... [facility] 07-30-2024 History of Presen t [...] the following (please check all that apply)? Space Physicist care Social History: Do you have any [...] harming myself has occurred to me. 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 As applicable, any other physician, advance practice provider, medical student, or other health professional student that will be observing or involved in the sensitive examination for educational or training purposes was discussed with the Patient or Authorized Youth Services Specialist. The Patient or Authorized Youth Services Specialist has agreed to proceed with the sensitive [...] Your guide to a health and the Bakery Team Member. Reviewed midwifery and deaf/hard of hearing specialist services that are available. 2) Screening: Hemoglobin [...] NITISH Thakur APRN.CNM documented in this encounter [facility] 07-30-2024 Instructions Erasto Brunson LPN - 07/30/2024 3:46 PM EST Please select the following link to access the [facility] Your Guide to a Healthy . [email or web address] Please select the following link to access the [facility] Your Guide to a Healthy . [email or web address] documented in this encounter [facility] 07-29-2024 Telephone encounter Note Last visit- 10/25/23 Last refill- 11/22/23 [facility] 07-29-2024 Miscellaneous Notes Last visit- 10/25/23 Last refill- 11/22/23 documented in this encounter [facility] 10-25-2023 Note Encounter Department : [facility] A SERVICE OF [facility] Progress Notes by BRYAN Go at 10/25/2023 7:40 AM Author: BRYAN GoService: -Author Type: Nurse Practitioner Filed: 10/25/2023 9:31 AMEncounter Date: 10/25/2023Status: Signed Supervisor Electronics Inspection: BRYAN Go (Nurse Practitioner) Yanet Banks Age: [...] She is requesting to return back to [facility] as before. She is aware that [...] Medication List: Current Outpatient Medications Ordered in [facility] MedicationSigDispenseRefill -etonogestreL-ethinyl estradioL (NUVARING) 0.12-0.015 mg/24 hr vaginal ringInsert vaginally and leave in place for 3 consecutive weeks, then remove for 1 week.1 each0 No current [facility]-ordered facility-administered medications on file. Allergies: Allergies AllergenReactions -AzithromycinHives and Diarrhea -Pertussis VaccinesHives Visit Vitals BP120/78 (Ortho BP Site: Left Upper Arm, Ortho BP Position: Sitting, Ortho BP Cuff Size: Regular Adult) Pulse(!) 56 Temp97.8 ?F (36.6 ?C) Resp16 Wt114 lb 8 oz (51.9 kg) FyV2852% BMI21.63 kg/m? Physical Exam: Physical Exam Vitals [...] Assessment and Pl (more content not included)... [facility] 07-27-2023 Note Encounter Department : [facility]ICE OF [facility] Progress Notes by Maryann Mathias MD at 07/27/2023 10:20 AM Author: MENDOZA Lezamaervice: -Author Type: Physician Filed: 07/27/2023 12:42 PMEncounter Date: 07/27/2023Status: Signed Supervisor Electronics Inspection: Maryann Mathias MD (Physician) Yanet Banks Age: [...] Medication List: Current Outpatient Medications Ordered in [facility] MedicationSigDispenseRefill -cephALEXin (KEFLEX) 500 mg capsuleTake 1 capsule (500 mg total) by mouth in the morning and 1 capsule (500 mg total) at noon and 1 capsule (500 mg total) in the evening. Do all this for 7 days.21 capsule0 -norethindrone (KRIS) 0.35 mg tabletTake 1 tablet (0.35 mg total) by mouth daily.28 [id number] No current [facility]-ordered facility-administered medications on file. Allergies: Allergies AllergenReactions -AzithromycinHives and Diarrhea -Pertussis VaccinesHives Visit Vitals BP106/71 Pulse78 Wt116 lb 1.6 oz (52.7 kg) AiL529% BMI21.94 kg/m? Physical Exam: Physical Exam Vitals [...] unspecified etiology (Primary) Comments: Likely viral. Continue eias-rkm-qnpdndi symptomatic treatment Orders: - POCT Rapid Strep Test Mastalgia Comments: Likely clogged milk duct. Continue massage. Warm moist heat. Antibiotics only if she notices redness or warmth Other orders - cephALEXin (KEFLEX) 500 mg capsule Dispense: 21 capsule; Refill: 0 Electronically Signed by: Maryann Mathias MD, 07/27/2023 12:42 PM [facility] 01-16-2023 Note Encounter Department : [facility] OF [facility] Progress Notes by BRYAN Go at 01/16/2023 9:20 AM Author: BRYAN GoService: -Author Type: Nurse Practitioner Filed: 01/16/2023 2:34 PMEncounter Date: 01/16/2023Status: Signed Supervisor Electronics Inspection: BRYAN Go (Nurse Practitioner) Yanet Banks Age: [...] Medication List: Current Outpatient Medications Ordered in [facility] MedicationSigDispenseRefill -norethindrone (KIRS) 0.35 mg tabletTake 1 tablet (0.35 mg total) by mouth daily.28 [id number] No current [facility]-ordered facility-administered medications on file. Allergies: Allergies AllergenReactions -AzithromycinHives and Diarrhea -Pertussis VaccinesHives Visit Vitals BP108/70 (Ortho BP Site: Left Upper Arm, Ortho BP Position: Sitting, Ortho BP Cuff Size: Adult) Pulse68 Temp97.4 ?F (36.3 ?C) Resp16 Wt120 lb 4.8 oz (54.6 kg) UsM539% BMI22.73 kg/m? Physical Exam: Physical Exam Vitals [...] regimen is e (more content not included)... [facility] 11-19-2022 Note 11/19/22 1100 History Consult Follow-up;Discharge teaching Pt states baby well and with good frequency. Reports latch is improving. Discharge teaching reviewed/complete. Card given. No questions at this time. [facility] 11-19-2022 Note @HOSPITAL SUMMARY AT DISCHARGE [...] 7.1 oz) ADDITIONAL DIAGNOSES / COMMENTS: none [facility] 11-19-2022 Note Problem: Constipatio n Goal: [...] Outcome: Progressing Goal: Effective breast-feeding Outcome: Progressing [facility] 11-18-2022 Note Problem: Maternal In jacques Feeding - Ineffective, Risk of Goal: Parent- attachment Outcome: Progressing Goal: Effective breast-feeding Outcome: Progressing [facility] 11-18-2022 Note ICM Progress Note Chart reviewed. ICM available as needed. DC plan: Home Estimated DC Date: November 19, 2022 Electronically signed by: Estefany Joseph RN, OB Wealth Management Advisor, Phone [phone]. Weekday Office Hours: 7:30-4:00. Holiday/Weekends [phone]. For urgent needs between 5p-7p, please call [phone]. If after 7pm, please call [facility] at [phone]. [facility] 11-18-2022 Note Problem: Constipatio n Goal: [...] Outcome: Progressing Goal: Effective breast-feeding Outcome: Progressing [facility] 11-18-2022 Note Problem: Constipatio n Goal: [...] Outcome: Progressing Goal: Effective breast-feeding Outcome: Progressing [facility] 09-12-2022 Note Patient presents for care. [...] w/d speech clear documented in this encounter [facility] 04-23-2022 Emergency department Note Arrived with reports of having diarrhea/vomiting and fever - since this am - pt states that she began feeling bad after eating dinner last night- pt states that she is 9 weeks - denies any vaginal bleeding Temp 101 per pt report - a/o x3 skin w/d speech clear [facility] Evaluation note Diagnosis Nausea vomiting and diarrhea- Primary Nausea with vomiting documented in this encounter [facility] note* Diagnosis Encounter for initial prescription of vaginal ring hormonal contraceptive documented in this encounter [facility] note* Diagnosis Encounter for supervision of normal in multigravida- Primary 8 weeks gestation of state, incidental Multiparity documented in this encounter [facility] note* Diagnosis 12 weeks gestation of - Primary state, incidental Encounter for supervision of other normal in second trimester Multiparity documented in this encounter [facility] note* Diagnosis Encounter for screening for malformation using ultrasound- Primary 12 weeks gestation of state, incidental Encounter for (NT) nuchal translucency scan Other specified screening [facility]* Diagnosis Encounter for supervision of other normal in second trimester- Primary 16 weeks gestation of state, incidental documented in this encounter [facility] note* Diagnosis 20 weeks gestation of (HCC)- Primary state, incidental Encounter for supervision of other normal in second trimester (HCC) documented in this encounter [facility]* Diagnosis Encounter for anatomic survey (HCC)- Primary Encounter for anatomic survey 20 weeks gestation of (HCC) state, incidental documented in this encounter [facility]* Diagnosis Encounter for supervision of other normal in second trimester (HCC)- Primary 24 weeks gestation of (HCC) state, incidental Screening for diabetes mellitus documented in this encounter [facility]* Diagnosis Encounter for supervision of other normal in third trimester (HCC)- Primary 28 weeks gestation of (HCC) state, incidental [facility] Diagnosis Encounter for supervision of normal in multigravida (HCC)- Primary 30 weeks gestation of (HCC) state, incidental documented [facility] this [facility] Diagnosis Encounter for supervision of other normal in third trimester (HCC)- Primary 32 weeks gestation of (HCC) state, incidental documented in this [facility] Diagnosis Encounter for supervision of other normal in third trimester (HCC)- Primary 34 weeks gestation of (HCC) state, incidental documented in this encounter [facility] Diagnosis Encounter for supervision of other normal in third trimester (HCC)- Primary 36 weeks gestation of (HCC) state, incidental documented in this encounter [facility]* Diagnosis Encounter for supervision of other normal in third trimester (HCC)- Primary 38 weeks gestation of (HCC) state, incidental documented in this encounter [facility]* Diagnosis 39 weeks gestation of (HCC)- Primary state, incidental Encounter for supervision of other normal in third trimester (HCC) documented in this encounter [facility]* Diagnosis 39 weeks gestation of (HCC)- Primary state, incidental Encounter for supervision of other normal in third trimester (HCC) documented in this encounter [facility]* Diagnosis Encounter for supervision of other normal in third trimester (HCC)- Primary 40 weeks gestation of (HCC) state, incidental Multiparity documented [facility] Diagnosis Onset Date Resolution Status Admit Date 40 weeks gestation of acut e March 13, 2025 1:13am Irregular contractions acute Au 2024 1:13am Labor, prolonged latent phase acute March 13, 2025 1:13am [facility] Work Phone: Evaluation note* Diagnosis Post-term , 40-42 weeks of gestation (HCC)- Primary Post term , unspecified episode of care 40 weeks gestation of (HCC) state, incidental documented in this encounter [facility]* Diagnosis Encounter for supervision of other normal in third trimester (HCC)- Primary 40 weeks gestation of (HCC) state, incidental Multiparity documented in this encounter [facility] Author [facility] Date/Time March 13, 2025 2: 04am [facility] Medical Records Department [address] [place] [address] OB Triage Physician Note 03/13/25 0152 MR#: [id number] Acct: [id number] Name: YANET BANKS Rep #:[id number] : 1995 29 From: Chinyere Lehman MD PCP: Care Physician,No Primary Status :REG CLI Y Location: [address] HPI - General General Date of [...] MD; No Primary Care Physician ~ Signed [facility] Work Phone: Hospital Discharge instructions* Attachments The following attachments cannot be sent through Care Everywhere. * Nausea and Vomiting (Tristanian) * Diarrhea (Tristanian) * Ondansetron, ADULT (Tristanian) [facility] ([facility])* Diagnostic Procedure Only (Routine) - Authorized Specialty Diagnoses / Procedures Referred By Kristen t Referred To Contact [facility] Diagnoses Encounter for supervision of normal in multigravida 8 weeks gestation of Procedures OBSTETRIC ULTRASOUND WHI US PREG UTERUS AFTER 1ST TRIMEST GESTATION Annie Thakur APRN.CNM [address] [place] [address] [facility] [place] [address] Referral ID Status Reason Start Date Expiration Date Visits Requested Visits Authorized [id number] Authorized Auto-Generat ed Referral 07/31/2024 07/31/2025 1 1 * Diagnostic Procedure Only (Routine) - Authorized Specialty Diagnoses / Procedures Referred By Kristen alston Referred To Contact [facility] Diagnoses Encounter for supervision of normal in multigravida 8 weeks gestation of Procedures OBSTETRIC ULTRASOUND WHI US PREG UTERUS AFTER 1ST TRIMEST GESTATION Annie Thakur APRN.CNM [address] [place] [place] [address] [facility] [place] [address] Referral ID Status Reason Start Date Expiration Date Visits Requested Visits Authorized [id number] Authorized Auto-Generat ed Referral 07/31/2024 07/31/2025 1 1 [facility] (narrative)No reason for referral information availableWooKet[facility] Work Phone: Summary Purpose Family History No [...] Referred By Kristen alston Referred To Contact [facility] Diagnoses Encounter for supervision of normal in multigravida 8 weeks gestation of Procedures OBSTETRIC ULTRASOUND WHI US PREG UTERUS AFTER 1ST TRIMEST GESTATION Annie Thakur, ARGENIS.CNM [address] [place] [address] Phone: tel: fax: [facility] [place] [address] Referral ID Status Reason Start Date Expiration Date V isits Requested Visits Authorized [id number] Closed Auto-Generate d Referral 07/31/2024 07/31/2025 1 1 Reason Onset Date Comments Care 09/24/2024 Reason Onset Date Comments Care 10/23/2024 Specialty Diagnoses / Procedures Referred By Kristen alston Referred To Contact [facility] Diagnoses Encounter for supervision of normal in multigravida (HCC) 8 weeks gestation of (HCC) Procedures OBSTETRIC ULTRASOUND WHI US PREG UTERUS AFTER 1ST TRIMEST GESTATION Annie Thakur, ARGENIS.CNM [address] [place] [address] Phone: tel: fax: [facility] [place] [address] Referral ID Status Reason Start Date Expiration Date V isits Requested Visits Authorized [id number] Closed Auto-Generate d Referral 07/31/2024 07/31/2025 1 1 Reason Comments Digital Analyst - Other PRAF Reason Onset Date Comments [...] Referred By Contac t Referred To Contact [facility] Diagnoses Encounter for supervision of other normal in third trimester (HCC) 40 weeks gestation of (HCC) Procedures OBSTETRIC ULTRASOUND WHI US PREG UTERUS AFTER 1ST TRIMEST GESTATION Khadra Mancini APRN.CNCandice [address] [place] [address] Phone: tel: fax: [address] [place] [address] Referral ID Status Reason Start Date Expiration Date V isits Requested Visits Authorized [id number] Closed Auto-Generate d Referral 03/11/2025 03/11/2026 3 [...] Care Teams (unrecognized sec tion and content) Specialty Trimmer Relationship Specialty Start Date End Date Maryann Mathias MD [address] [place] [address] PCP - General Family Practice 04/23/22 Specialty Trimmer Relationship Specialty Start Date End Date Maryann Mathias MD [address] [place] [address] PCP - General Family Medicine 12/03/19 [...] section and content) DATE CREATED AUTHOR 11/28/2022 [facility] DATE CREATED AUTHOR AUTHOR'S ORGANIZ ATION 04/09/2023 Provider Locatio ns DATE CREATED AUTHOR AUTHOR'S ORGANIZ ATION 10/26/2023 [facility] DATE CREATED AUTHOR AUTHOR'S ORGANIZ ATION 03/12/2025 [facility] DATE CREATED AUTHOR AUTHOR'S ORGANIZ ATION 03/14/2025 [facility] Source Comments (unrecognize d section and content) In the event this informatio n is protected by the Federal Confidentiality of Alcohol and Drug Abuse Patient Records regulations: The Federal rules restrict any use of the information to criminally investigate or prosecute any alcohol or drug abuse patient.[facility] CenterIn the event this information is protected by the Federal Confidentiality of Alcohol and Drug Abuse Patient Records regulations: The Federal rules restrict any use of the information to criminally investigate or prosecute any alcohol or drug abuse patient.[facility] CenterIn the event this information is protected by the Federal Confidentiality of Alcohol and Drug Abuse Patient Records regulations: The Federal rules restrict any use of the information to criminally investigate or prosecute any alcohol or drug abuse patient.[facility] CenterIn the event this information is protected by the Federal Confidentiality of Alcohol and Drug Abuse Patient Records regulations: The Federal rules restrict any use of the information to criminally investigate or prosecute any alcohol or drug abuse patient.[facility] CenterIn the event this information is protected by the Federal Confidentiality of Alcohol and Drug Abuse Patient Records regulations: The Federal rules restrict any use of the information to criminally investigate or prosecute any alcohol or drug abuse patient.[facility] CenterIn the event this information is protected by the Federal Confidentiality of Alcohol and Drug Abuse Patient Records regulations: The Federal rules restrict any use of the information to criminally investigate or prosecute any alcohol or drug abuse patient.[facility] CenterIn the event this information is protected by the Federal Confidentiality of Alcohol and Drug Abuse Patient Records regulations: The Federal rules restrict any use of the information to criminally investigate or prosecute any alcohol or drug abuse patient.[facility] CenterIn the event this information is protected by the Federal Confidentiality of Alcohol and Drug Abuse Patient Records regulations: The Federal rules restrict any use of the information to criminally investigate or prosecute any alcohol or drug abuse patient.[facility] CenterIn the event this information is protected by the Federal Confidentiality of Alcohol and Drug Abuse Patient Records regulations: The Federal rules restrict any use of the information to criminally investigate or prosecute any alcohol or drug abuse patient.[facility] CenterIn the event this information is protected by the Federal Confidentiality of Alcohol and Drug Abuse Patient Records regulations: The Federal rules restrict any use of the information to criminally investigate or prosecute any alcohol or drug abuse patient.[facility] CenterIn the event this information is protected by the Federal Confidentiality of Alcohol and Drug Abuse Patient Records regulations: The Federal rules restrict any use of the information to criminally investigate or prosecute any alcohol or drug abuse patient.[facility] CenterIn the event this information is protected by the Federal Confidentiality of Alcohol and Drug Abuse Patient Records regulations: The Federal rules restrict any use of the information to criminally investigate or prosecute any alcohol or drug abuse patient.[facility] CenterIn the event this information is protected by the Federal Confidentiality of Alcohol and Drug Abuse Patient Records regulations: The Federal rules restrict any use of the information to criminally investigate or prosecute any alcohol or drug abuse patient.[facility] CenterIn the event this information is protected by the Federal Confidentiality of Alcohol and Drug Abuse Patient Records regulations: The Federal rules restrict any use of the information to criminally investigate or prosecute any alcohol or drug abuse patient.[facility] CenterIn the event this information is protected by the Federal Confidentiality of Alcohol and Drug Abuse Patient Records regulations: The Federal rules restrict any use of the information to criminally investigate or prosecute any alcohol or drug abuse patient.[facility] CenterIn the event this information is protected by the Federal Confidentiality of Alcohol and Drug Abuse Patient Records regulations: The Federal rules restrict any use of the information to criminally investigate or prosecute any alcohol or drug abuse patient.[facility] CenterIn the event this information is protected by the Federal Confidentiality of Alcohol and Drug Abuse Patient Records regulations: The Federal rules restrict any use of the information to criminally investigate or prosecute any alcohol or drug abuse patient.[facility] CenterIn the event this information is protected by the Federal Confidentiality of Alcohol and Drug Abuse Patient Records regulations: The Federal rules restrict any use of the information to criminally investigate or prosecute any alcohol or drug abuse patient.[facility] CenterIn the event this information is protected by the Federal Confidentiality of Alcohol and Drug Abuse Patient Records regulations: The Federal rules restrict any use of the information to criminally investigate or prosecute any alcohol or drug abuse patient.[facility] CenterIn the event this information is protected by the Federal Confidentiality of Alcohol and Drug Abuse Patient Records regulations: The Federal rules restrict any use of the information to criminally investigate or prosecute any alcohol or drug abuse patient.[facility] CenterIn the event this information is protected by the Federal Confidentiality of Alcohol and Drug Abuse Patient Records regulations: The Federal rules restrict any use of the information to criminally investigate or prosecute any alcohol or drug abuse patient.[facility] CenterIn the event this information is protected by the Federal Confidentiality of Alcohol and Drug Abuse Patient Records regulations: The Federal rules restrict any use of the information to criminally investigate or prosecute any alcohol or drug abuse patient.[facility] CenterIn the event this information is protected by the Federal Confidentiality of Alcohol and Drug Abuse Patient Records regulations: The Federal rules restrict any use of the information to criminally investigate or prosecute any alcohol or drug abuse patient.[facility] CenterIn the event this information is protected by the Federal Confidentiality of Alcohol and Drug Abuse Patient Records regulations: The Federal rules restrict any use of the information to criminally investigate or prosecute any alcohol or drug abuse patient.[facility] CenterIn the event this information is protected by the Federal Confidentiality of Alcohol and Drug Abuse Patient Records regulations: The Federal rules restrict any use of the information to criminally investigate or prosecute any alcohol or drug abuse patient.[facility] CenterIn the event this information is protected by the Federal Confidentiality of Alcohol and Drug Abuse Patient Records regulations: The Federal rules restrict any use of the information to criminally investigate or prosecute any alcohol or drug abuse patient.[facility] CenterIn the event this information is protected by the Federal Confidentiality of Alcohol and Drug Abuse Patient Records regulations: The Federal rules restrict any use of the information to criminally investigate or prosecute any alcohol or drug abuse patient.[facility] Goals (unrecognized section and content) Goals may [...] BE BASED ON THE PRIMARY CLINICAL RECORDS. [facility]. provides no warranty or guarantee of the accuracy or completeness of information in this document.
--- OUTSIDE RECORDS SUMMARY | 2025-03-16 07:57 | XMS RPT_ITS | CCD ---
Author Organization [facility] Care Team Providers Care Wash Rack Operator Name Role Phone Stew ARROYO, Maryann Harrell Primary Care Provider [phone] JOSLYN PANDA Attending Unavailable STEW, MARYANN R [...] Unavailable DOMONIQUE ONEILL Attending Unavailable STEW, MARYANN HEYDI Primary Care Unavailable LING DALY Attending UnavailNIKKI LightISE HEYDI Primary Care Unavailable NIKKI MATHIASISE HEYDI Attending Unavailable Ling Daly Attending Unavailable STEW, MARYANN HEYDI Primary Care Unavailable Maryann Mathias MD Primary Care Provider Unavailable Primary Care Provider Unavaillucas Enamorado MD, Dr. Whitlock Attending Provid er Care Physician, No Primary Primary Care Provider Unavailable Chinyere Enamorado Attending Unavail able Care Physician, No Primary Primary Care Unava ilable PLOTTS, ANNIE Referring Unavailable PLOTTS, ANNIE Attending Unavailable PLOTTS, ANNIE Referring Unavailable MANCINI, KHADRA Attending Unavailable MANCINI, KHADRA Attending Unavailable MANCINI, KHADRA Attending Unavailable PLOTTS, ANNIE Attending Unavailable PLOTTS, ANNIE Attending Unavailable PLOTTS, ANNIE Referring Unavailable CHINYERE FRIEND Attending Unavail able PLOTTS, ANNIE Referring Unavailable WISWELL, ARTHUR Attending Unavailable MANCINI, KHADRA Attending Unavailable MANCINI, KHADRA Referring Unavailable MANCINI, KHADRA Attending Unavailable MANCINI, KHADRA Attending Unavailable MANCINI, KHADRA Attending Unavailable MANCINI, KHADRA Attending Unavailable PLOTTS, ANNIE Attending Unavailable PLOTTS, ANNIE Attending Unavailable PLOTTS, ANNIE Referring Unavailable MANCINI, KHADRA Attending Unavailable Allergies Allergy Classification Reported Allergen(s) Allergy Type Date of Onset Reaction(s) Facility (20 sources) Azithromycin; Translations: [AZITHROMYCIN] Drug Allergy 0 Hives, Diarrhea, GI Upset [facility] (5 sources) Pertussis Vaccines; Translations: [PERTUSSIS VACCINES] Propensity to adverse reactions 2 Hives [facility] (20 sources) Tetanus Vaccines And Toxoid; Translations: [TETANUS VACCINES AND TOXOID] Propensity to adverse reactions 0 [facility] Medications Current Medications Medication Drug Class(es) Dates Sig (Normalized) Sig (Original) 21 day ethinyl estradiol 0.698344 mg/hr / etonogestrel 0.005 mg/hr vaginal system [...] 07/31/2024 07/31/2024 Discontinued (Discontinued by Patient) levonorgestrel 0.483607 mg/hr intrauterine system (1 source) Progestin, Progestin-containin [...] Translations: [Patient encounter status] Onset: 05-25-2022 Episodic Other upper respiratory disease (1 source) [...] of ; Translations: [40 weeks gestation of ] Onset: 03-13-2025 Episodic Residual codes; unclassified (1 source) 38 [...] ; Translations: [28 weeks gestation of ([facility] Onset: 12-17-2024 Episodic Unclassified (2 [...] leg] Onset: 03-19-2019 Resolved: 06-17-2019 06-17-2019 Episodic Residual codes; unclassified (1 source) 24 [...] Facil ity Examination level ultrasound on 03-14-2025 [facility] Radiology Study observation (narrative) [facility] URINE OB DIP B/Oon Glucose Ql (U) Negative Neg mg/dL [facility] Interpretation and review of laboratory results Normal [facility] Protein.monoclonal (U) [Mass/Vol] trace Neg mg/dL [facility] OB Triage Physician Noteon 0 03-13-2025 OB Triage Physician Note [facility] Medical Records Department [address] [place] [address] OB Triage Physician Note 03/13/25 0152 MR#: [id number] Acct: [id number] Name: YANET BANKS Rep #: [id number] : 1995 29 From: Chinyere Enamorado MD PCP: Care Physician,No Primary Status:REG CLI Y Location: OV756-2 HPI - General General Date of Admission: [...] Enamorado MD; No Primary Care Physician Signed [facility] 03-12-2025 [facility] Telephone (OBGYWM) YANET BANKS ([id number]) 1995 F Date Time Provider Department 03/12/25 [...] aware that MAGDIEL and CP are not clinical documentation specialist today. CORA notified. Updated HANDP faxed to [...] Status:Closed by NICA LAW on 03/12/25 Normal [facility] URINE OB DIP B/Oon Glucose Ql (U) Negative Neg mg/dL [facility] Interpretation and review of laboratory results Normal [facility] Protein.monoclonal (U) [Mass/Vol] Negative Neg mg/dL [facility] CNPNon 03-07-2025 [facility] Telephone (OBGYWM) YANET BANKS ([id number]) 1995 F Date Time Provider Department 03/07/25 ANNIE THAKUR During your visit today, we recorded the following information about you: Erasto Brunson LPN 03/07/2025 3:28 PM Signed Faxed signed water consent to [facility] 03/07/2025. Erasto Brunson LPN Allergies [...] Status:Closed by ERASTO BRUNSON on 03/07/25 Normal [facility] URINE OB DIP B/Oon 5 Glucose Ql (U) Negative Neg mg/dL [facility] Interpretation and review of laboratory results Normal [facility] Protein.monoclonal (U) [Mass/Vol] Negative Neg mg/dL [facility] URINE OB DIP B/Oon 5 Glucose Ql (U) Negative Neg mg/dL [facility] Interpretation and review of laboratory results Normal [facility] Protein.monoclonal (U) [Mass/Vol] Negative Neg mg/dL [facility] URINE OB DIP B/Oon 5 Glucose Ql (U) Negative Neg mg/dL [facility] Interpretation and review of laboratory results Normal [facility] Protein.monoclonal (U) [Mass/Vol] Negative Neg mg/dL [facility] ROUTINE, GROUP B ST REPTOCOCCUS BY PCRon 02-11-2025 ROUTINE, GROUP B STREPTOCOCCUS BY PCR Not detected Normal [facility] Comment on above: Performed By: #### T SPN #### [facility] CLIA [id number] [address] [place] [address] [place] URINE OB DIP B/Oon Glucose Ql (U) Negative Neg mg/dL [facility] Protein.monoclonal (U) [Mass/Vol] Negative Neg mg/dL [facility] CNPNon 01-28-2025 [facility]NP[facility] Telephone (OBGYWM) YANET BANKS ([id number]) 1995 F Date Time Provider Department 01/28/25 [...] 7-8. Said it felt much different than Uledi Barnett. 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 Problem List As Of Date 01/01/2025 Noted Resolved Oligomenorrhea [N91.5] 12/08/2009 12/31/2024 Dysmenorrhea [N94.6] 12/08/2009 08/28/2024 Encounter for supervision of normal i*07/31/2024 Multiparity [Z64.1] 07/31/2024 Encounter Status:Closed by NICA URIARTE on 01/01/25 Normal [facility] CBC W Auto Differential pane l (Bld)on 12-17-2024 Basophils (Bld) [#/Vol] 10*3/uL Normal <0.11 [facility] Comment on above: Order Comment: Speci men Type: BLOOD SPECIMEN Ordering Facility: [facility] Address: [address] [place] [address] Performed By: #### T SPN #### [facility] CLIA [id number] [address] [place] [address] [place] Basophils/100 WBC (Bld) 0.3 % Normal [facility] Comment on above: Order Comment: Speci men Type: BLOOD SPECIMEN Ordering Facility: [facility] Address: [address] [place] [address] Performed By: #### T SPN #### [facility] CLIA [id number] [address] [place] [address] [place] Differential cell count method Nom (Bld) Auto Normal [facility] Comment on above: Order Comment: Speci men Type: BLOOD SPECIMEN Ordering Facility: [facility] Address: [address] [place] [address] Performed By: #### T SPN #### [facility] CLIA [id number] [address] [place] [address] [place] Eosinophils (Bld) [#/Vol] 0.11 10*3/uL Normal <0.46 [facility] Comment on above: Order Comment: Speci men Type: BLOOD SPECIMEN Ordering Facility: [facility] Address: [address] [place] [address] Performed By: #### T SPN #### [facility] CLIA [id number] [address] [place] [address] [place] Eosinophils/100 WBC (Bld) 1.5 % Normal [facility] Comment on above: Order Comment: Speci men Type: BLOOD SPECIMEN Ordering Facility: [facility] Address: [address] [place] [address] Performed By: #### T SPN #### [facility] CLIA [id number] [address] [place] [address] [place] Erythrocyte distribution width (RBC) [Ratio] 12.7 % Normal 11.5-15.0 [facility] Comment on above: Order Comment: Speci men Type: BLOOD SPECIMEN Ordering Facility: [facility] Address: [address] [place] [address] Performed By: #### T SPN #### [facility] CLIA [id number] [address] [place] [address] [place] Hematocrit (Bld) [Volume fraction] 37.0 % Normal 36.0-46.0 [facility] Comment on above: Order Comment: Speci men Type: BLOOD SPECIMEN Ordering Facility: [facility] Address: [address] [place] [address] Performed By: #### T SPN #### [facility] CLIA [id number] [address] [place] [address] [place] Hemoglobin (Bld) [Mass/Vol] 13.2 g/dL Normal 11.5-15.5 [facility] Comment on above: Order Comment: Speci men Type: BLOOD SPECIMEN Ordering Facility: [facility] Address: [address], [place] [address] Performed By: #### T SPN #### [facility] CLIA [id number] [address] [place] [address] [place] Immature granulocytes (Bld) [#/Vol] 0.05 10*3/uL Normal <0.10 [facility] Comment on above: Order Comment: Speci men Type: BLOOD SPECIMEN Ordering Facility: [facility] Address: [address] [place] [address] Performed By: #### T SPN #### [facility] CLIA [id number] [address] [place] [address] [place] Immature granulocytes/100 WBC (Bld) 0.7 % Normal [facility] Comment on above: Order Comment: Speci men Type: BLOOD SPECIMEN Ordering Facility: [facility] Address: [address] [place] [address] Performed By: #### T SPN #### [facility] CLIA [id number] [address] [place] [address] [place] Lymphocytes (Bld) [#/Vol] 1.56 10*3/uL Normal 1.00-4.00 [facility] Comment on above: Order Comment: Speci men Type: BLOOD SPECIMEN Ordering Facility: [facility] Address: [address] [place] [address] Performed By: #### T SPN #### [facility] CLIA [id number] [address] [place] [address] [place] Lymphocytes/100 WBC (Bld) 21.3 % Normal [facility] Comment on above: Order Comment: Speci men Type: BLOOD SPECIMEN Ordering Facility: [facility] Address: [address] [place] [address] Performed By: #### T SPN #### [facility] CLIA [id number] [address] [place] [address] [place] MCH (RBC) [Entitic mass] 32.8 pg Normal 26.0-34.0 [facility] Comment on above: Order Comment: Speci men Type: BLOOD SPECIMEN Ordering Facility: [facility] Address: [address] [place] [address] Performed By: #### T SPN #### [facility] CLIA [id number] [address] [place] [address] [place] MCHC (RBC) [Mass/Vol] 35.7 g/dL Normal 30.5-36.0 [facility] Comment on above: Order Comment: Speci men Type: BLOOD SPECIMEN Ordering Facility: [facility] Address: [address] [place] [address] Performed By: #### T SPN #### [facility] CLIA [id number] [address] [place] [address] [place] MCV (RBC) [Entitic vol] 92.0 fL Normal 80.0-100.0 [facility] Comment on above: Order Comment: Speci men Type: BLOOD SPECIMEN Ordering Facility: [facility] Address: [address] [place] [address] Performed By: #### T SPN #### [facility] CLIA [id number] [address] [place] [address] [place] Monocytes (Bld) [#/Vol] 0.54 10*3/uL Normal <0.87 [facility] Comment on above: Order Comment: Speci men Type: BLOOD SPECIMEN Ordering Facility: [facility] Address: [address] [place] [address] Performed By: #### T SPN #### [facility] CLIA [id number] [address] [place] [address] [place] Monocytes/100 WBC (Bld) 7.4 % Normal [facility] Comment on above: Order Comment: Speci men Type: BLOOD SPECIMEN Ordering Facility: [facility] Address: [address] [place] [address] Performed By: #### T SPN #### [facility] CLIA [id number] [facility] [place] [address] [place] Neutrophils (Bld) [#/Vol] 5.06 10*3/uL Normal 1.45-7.50 [facility] Comment on above: Order Comment: Speci men Type: BLOOD SPECIMEN Ordering Facility: [facility] Address: [address] [place] [address] Performed By: #### T SPN #### [facility] CLIA [id number] [address] [place] [address] [place] Neutrophils/100 WBC (Bld) 68.8 % Normal [facility] Comment on above: Order Comment: Speci men Type: BLOOD SPECIMEN Ordering Facility: [facility] Address: [address] [place] [address] Performed By: #### T SPN #### [facility] CLIA [id number] [address] [place] [address] [place] Nucleated RBC (Bld) [#/Vol] 10*3/uL Normal <0.01 [facility] Comment on above: Order Comment: Speci men Type: BLOOD SPECIMEN Ordering Facility: [facility] Address: [address] [place] [address] Performed By: #### T SPN #### [facility] CLIA [id number] [address] [place] [address] [place] Nucleated RBC/100 WBC (Bld) [Ratio] 0.0 /100 WBC Normal [facility] Comment on above: Order Comment: Speci men Type: BLOOD SPECIMEN Ordering Facility: [facility] Address: [address] [place] [address] Performed By: #### T SPN #### [facility] CLIA [id number] [address] [place] [address] [place] Platelet mean volume (Bld) [Entitic vol] 9.0 fL Normal 9.0-12.7 [facility] Comment on above: Order Comment: Speci men Type: BLOOD SPECIMEN Ordering Facility: [facility] Address: [address] [place] [address] Performed By: #### T SPN #### [facility] CLIA [id number] [address] [place] [address] [place] Platelets (Bld) [#/Vol] 252 10*3/uL Normal 150-400 [facility] Comment on above: Order Comment: Speci men Type: BLOOD SPECIMEN Ordering Facility: [facility] Address: [address] [place] [address] Performed By: #### T SPN #### [facility] CLIA [id number] [address] [place] [address] [place] RBC (Bld) [#/Vol] 4.02 10*6/uL Normal 3.90-5.20 [facility] Comment on above: Order Comment: Speci men Type: BLOOD SPECIMEN Ordering Facility: [facility] Address: [address] [place] [address] Performed By: #### T SPN #### [facility] CLIA [id number] [address] [place] [address] [place] WBC (Bld) [#/Vol] 7.34 10*3/uL Normal 3.70-11.00 [facility] Comment on above: Order Comment: Speci men Type: BLOOD SPECIMEN Ordering Facility: [facility] Address: [address] [place] [address] Performed By: #### T SPN #### [facility] CLIA [id number] [address] [place] [address] [place] GESTATIONAL GLUCOSE SCREEN, 1-HOUR, 50 GRAM, NON-FASTINGon 12-17-2024 Glucose [Mass/Vol] 105 mg/dL Normal 74-134 [facility] Comment on above: Order Comment: Speci men Type: BLOOD SPECIMEN Ordering Facility: [facility] Address: [address] [place] [address] Result Comment: [employer] [place] Congress of Obstetricians and Gynecologists (Kasi/Michael) guidelines state a gestational diabetes mellitus positive screen is made, in women not previously diagnosed with overt diabetes, when the 1 hr plasma glucose level is equal to or above 140 mg/dL. The [facility] [place] recommends a 135 mg/dL cutoff. Performed By: #### T SPN #### [facility] CLIA [id number] [address] [place] [address] [place] Reagin and Treponema pallidu m IgG and IgM [Interp]on 12-17-2024 T. pallidum IgG+IgM IA Ql (S) Non-Reactive Normal Nonreactive [facility] Comment on above: Order Comment: Speci men Type: BLOOD SPECIMENOrdering Facility: [facility] Address: [address] [place] [address] Performed By: #### 7 3752-8 ####[facility] LABIA [id number] [address] Reagin+T pallidum IgG+IgM Se rPl-Impon 12-17-2024 Reagin and Treponema pallidum IgG and IgM [Interp] Cannot exclude recent Treponemal infection if specimen collected within 7-10 days after appearance of suspect lesions or 2-3 weeks after an exposure. Clinical correlation is required. Normal [facility] Comment on above: Order Comment: Speci men Type: BLOOD SPECIMENOrdering Facility: 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 Problem List As Of Date 10/24/2024 Noted Resolved Oligomenorrhea [N91.5] 12/08/2009 Dysmenorrhea [N94.6] 12/08/2009 08/28/2024 Encounter for supervision of normal i*07/31/2024 Multiparity [Z64.1] 07/31/2024 Encounter Status:Closed by NICA URIARTE on 10/24/24 Normal [facility] Examination level ultrasound on 10-23-2024 Indication [...] 12 oz EFW by: Hadlock (HC-AC-FL) Extended Item Repair Manager 6.5 mm CM 3.9 mm 13% Nicolaides [...] normal LVOT view: normal 3-vessel view: normal 6-ojvzlh-meetawy view: normal Heart / Thorax Situs: situs [...] Read By: Geri Wilson M.D. MATERNAL MEDICINE [facility] Radiology Study observation (narrative) [facility] Examination level ultrasound on 08-28-2024 Indication First trimester anatomic survey Impression REMOTE READ The patient is referred for a first trimester anatomy scan including nuchal translucency measurement as clinically indicated. - Single, live, intrauterine . - Murtaugh rump length measurement is consistent with the [...] view: suboptimal 4-chamber view with color: suboptimal 6-yernvn-vlxhfbs view: suboptimal Abdominal cord insertion: normal Stomach: [...] Read By: Geri Wilson M.D. 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 trachomatis+N. gonorrhoea e DNA MICHAEL+probe Ql (Unsp spec)on 07-31-2024 C. trachomatis rRNA MICHAEL+probe Ql (Unsp spec) Not detected Normal Not detected [facility] Comment on above: Order Comment: Speci men Type: BLOOD SPECIMEN Ordering Facility: [facility] Address: [address] [place] [address] Performed By: #### T SPN #### [facility] CLIA [id number] [address] [place] [address] [place] N. gonorrhoeae rRNA MICHAEL+probe Ql (Unsp spec) Not detected Normal Not detected [facility] Comment on above: Order Comment: Speci men Type: BLOOD SPECIMEN Ordering Facility: [facility] Address: [address] [place] [address] Performed By: #### T SPN #### [facility] CLIA [id number] [address] [place] [address] [place] CBC W Auto Differential pane l (Bld)on 07-31-2024 Basophils (Bld) [#/Vol] 10*3/uL Normal <0.11 [facility] Comment on above: Order Comment: Speci men Type: BLOOD SPECIMENOrdering Facility: [facility] Address: [address] [place] [address] Performed By: #### 5 7021-8 ####[facility] [id number] [place] [address] [place] Basophils/100 WBC (Bld) 0.3 % Normal [facility] Comment on above: Order Comment: Speci men Type: BLOOD SPECIMENOrdering Facility: [facility] Address: [address] [place] [address] Performed By: #### 5 7021-8 ####[facility] [id number] [place] [address] [place] Differential cell count method Nom (Bld) Auto Normal [facility] Comment on above: Order Comment: Speci men Type: BLOOD SPECIMENOrdering Facility: [facility] Address: [address] [place] [address] Performed By: #### 5 7021-8 ####[facility] [id number] [place] [address] [place] Eosinophils (Bld) [#/Vol] 0.11 10*3/uL Normal <0.46 [facility] Comment on above: Order Comment: Speci men Type: BLOOD SPECIMENOrdering Facility: [facility] Address: [address] [place] [address] Performed By: #### 5 7021-8 ####[facility] [id number] [place] [address] [place] Eosinophils/100 WBC (Bld) 1.4 % Normal [facility] Comment on above: Order Comment: Speci men Type: BLOOD SPECIMENOrdering Facility: [facility] Address: [address] [place] [address] Performed By: #### 5 7021-8 ####[facility] [id number] [place] [address] [place] Erythrocyte distribution width (RBC) [Ratio] 11.8 % Normal 11.5-15.0 [facility] Comment on above: Order Comment: Speci men Type: BLOOD SPECIMENOrdering Facility: [facility] Address: [address] [place] [address] Performed By: #### 5 7021-8 ####[facility] [id number] [place] [address] [place] Hematocrit (Bld) [Volume fraction] 40.5 % Normal 36.0-46.0 [facility] Comment on above: Order Comment: Speci men Type: BLOOD SPECIMENOrdering Facility: [facility] Address: [address] [place] [address] Performed By: #### 5 7021-8 ####[facility] MILLWNCLIA [id number] [place] [address] [place] Hemoglobin (Bld) [Mass/Vol] 14.2 g/dL Normal 11.5-15.5 [facility] Comment on above: Order Comment: Speci men Type: BLOOD SPECIMENOrdering Facility: [facility] Address: [address] [place] [address] Performed By: #### 5 7021-8 ####[facility] BOU[facility]ARDNCLIA [id number] [place] [address] [place] Immature granulocytes (Bld) [#/Vol] 0.03 10*3/uL Normal <0.10 [facility] Comment on above: Order Comment: Speci men Type: BLOOD SPECIMENOrdering Facility: [facility] Address: [address] [place] [address] Performed By: #### 5 7021-8 ####[facility]IT[facility]IA [id number] [place] [address] [place] Immature granulocytes/100 WBC (Bld) 0.4 % Normal [facility] Comment on above: Order Comment: Speci men Type: BLOOD SPECIMENOrdering Facility: [facility] Address: [address] [place] [address] Performed By: #### 5 7021-8 ####[facility]IALWNCLIA [id number] [place] [address] [place] Lymphocytes (Bld) [#/Vol] 2.09 10*3/uL Normal 1.00-4.00 [facility] Comment on above: Order Comment: Speci men Type: BLOOD SPECIMENOrdering Facility: [facility] Address: [address] [place] [address] Performed By: #### 5 7021-8 ####[facility] B[facility]LEVARDNCLIA [id number] [place] [address] [place] Lymphocytes/100 WBC (Bld) 26.5 % Normal [facility] Comment on above: Order Comment: Speci men Type: BLOOD SPECIMENOrdering Facility: [facility] Address: [address] [place] [address] Performed By: #### 5 7021-8 ####[facility] [id number] [place] [address] [place] MCH (RBC) [Entitic mass] 31.7 pg Normal 26.0-34.0 [facility] Comment on above: Order Comment: Speci men Type: BLOOD SPECIMENOrdering Facility: [facility] Address: [address] [place] [address] Performed By: #### 5 7021-8 ####[facility] [id number] [place] [address] [place] MCHC (RBC) [Mass/Vol] 35.1 g/dL Normal 30.5-36.0 [facility] Comment on above: Order Comment: Speci men Type: BLOOD SPECIMENOrdering Facility: [facility] Address: [address] [place] [address] Performed By: #### 5 7021-8 ####[facility] [id number] [place] [address] [place] MCV (RBC) [Entitic vol] 90.4 fL Normal 80.0-100.0 [facility] Comment on above: Order Comment: Speci men Type: BLOOD SPECIMENOrdering Facility: [facility] Address: [address] [place] [address] Performed By: #### 5 7021-8 ####[facility] B[facility]LEVARDNCLI [id number] [place] [address] [place] Monocytes (Bld) [#/Vol] 0.48 10*3/uL Normal <0.87 [facility] Comment on above: Order Comment: Speci men Type: BLOOD SPECIMENOrdering Facility: [facility] Address: [address] [place] [address] Performed By: #### 5 7021-8 ####[facility] [id number] [place] [address] [place] Monocytes/100 WBC (Bld) 6.1 % Normal [facility] Comment on above: Order Comment: Speci men Type: BLOOD SPECIMENOrdering Facility: [facility] Address: [address] [place] [address] Performed By: #### 5 7021-8 ####[facility] [id number] [place] [address] [place] Neutrophils (Bld) [#/Vol] 5.16 10*3/uL Normal 1.45-7.50 [facility] Comment on above: Order Comment: Speci men Type: BLOOD SPECIMENOrdering Facility: [facility] Address: [address] [place] [address] Performed By: #### 5 7021-8 ####[facility] [id number] [place] [address] [place] Neutrophils/100 WBC (Bld) 65.3 % Normal [facility] Comment on above: Order Comment: Speci men Type: BLOOD SPECIMENOrdering Facility: [facility] Address: [address] [place] [address] Performed By: #### 5 7021-8 ####[facility] [id number] [place] [address] [place] Nucleated RBC (Bld) [#/Vol] 10*3/uL Normal <0.01 [facility] Comment on above: Order Comment: Speci men Type: BLOOD SPECIMENOrdering Facility: [facility] Address: [address] [place] [address] Performed By: #### 5 7021-8 ####[facility] ANTIONEWNCLIA [id number] [place] [address] [place] Nucleated RBC/100 WBC (Bld) [Ratio] 0.0 /100 WBC Normal [facility] Comment on above: Order Comment: Speci men Type: BLOOD SPECIMENOrdering Facility: [facility] Address: [address] [place] [address] Performed By: #### 5 7021-8 ####[facility]ARDNCLIA [id number] [place] [address] [place] Platelet mean volume (Bld) [Entitic vol] 9.0 fL Normal 9.0-12.7 [facility] Comment on above: Order Comment: Speci men Type: BLOOD SPECIMENOrdering Facility: [facility] Address: [address] [place] [address] Performed By: #### 5 7021-8 ####[facility]ARDNCLIA [id number] [place] [address] [place] Platelets (Bld) [#/Vol] 312 10*3/uL Normal 150-400 [facility] Comment on above: Order Comment: Speci men Type: BLOOD SPECIMENOrdering Facility: [facility] Address: [address] [place] [address] Performed By: #### 5 7021-8 ####[facility]ARDNCLIA [id number] [place] [address] [place] RBC (Bld) [#/Vol] 4.48 10*6/uL Normal 3.90-5.20 [facility] Comment on above: Order Comment: Speci men Type: BLOOD SPECIMENOrdering Facility: [facility] Address: [address] [place] [address] Performed By: #### 5 7021-8 ####[facility]ARDNCLIA [id number] [place] [address] [place] WBC (Bld) [#/Vol] 7.89 10*3/uL Normal 3.70-11.00 [facility] Comment on above: Order Comment: Speci men Type: BLOOD SPECIMENOrdering Facility: [facility] Address: [address] [place] [address] Performed By: #### 5 7021-8 ####[facility] [id number] [place] [address] [place] HBV surface Ag Ser Qlon 07-17 HBV surface Ag Ql (S) Negative Normal Negative [facility] Comment on above: Order Comment: Speci men Type: BLOOD SPECIMENOrdering Facility: [facility] Address: [address] [place] [address] Performed By: #### 5 195-3, 67529-1, 68248-8 ####[facility] LABIA [id number] [place] [address] [place] HCV Ab Ser Qlon 07-31-2024 HCV Ab Ql (S) Negative Normal Negative [facility] Comment on above: Order Comment: Speci men Type: BLOOD SPECIMENOrdering Facility: [facility] Address: [address] [place] [address] Result Comment: The result suggests no evidence of active infection with Hepatitis C virus. Should recent infection be suspected, repeat testing may be considered 4-6 weeks after this draw. Performed By: #### 1 6128-1 ####[facility] LABIA [id number] [place] [address] [place] HIGH RISK HUMAN PAPILLOMA RHINA (HPV), PCR FOR DETECTION AND GENOTYPINGon 07-31-2024 HPV 16 Ag Ql (Unsp spec) Not detected Normal Not detected [facility] Comment on above: Order Comment: Speci men Type: BLOOD SPECIMEN [facility] Address: [address] [place] [address] Performed By: #### T SPN #### [facility] CLIA [id number] [address] [place] [address] [place] HPV 18 Ag Ql (Unsp spec) Not detected Normal Not detected [facility] Comment on above: Order Comment: Speci men Type: BLOOD SPECIMEN [facility] Address: [address] [place] [address] Performed By: #### T SPN #### [facility] CLIA [id number] [address] [place] [address] [place] HPV 31+33+35+39+45+51+5 2+56+58+59+66+68 DNA MICHAEL+probe Ql (Cvx) Not detected Normal Not detected [facility] Comment on above: Order Comment: Speci men Type: BLOOD SPECIMEN [facility] Address: [address] [place] [address] Result Comment: High Risk HPV Other Type includes HPV types 31, 33, 35, 39, 45, 51, 52, 56, 58, 59, 66 and 68. Performed By: #### T SPN #### [facility] CLIA [id number] [address] [place] [address] [place] HIV 1+2 Ab IA Qlon 5 HIV 1 and 2 Ab IA.rapid Nom (S/P/Bld) Normal [facility] Comment on above: Order Comment: Speci men Type: BLOOD SPECIMENOrdering Facility: [facility] Address: [address] [place] [address] Result Comment: Test not indicated. Performed By: #### 5 195-3, 22157-1, 33908-9 ####[facility] LABCLIA [id number] [place] [address] [place] HIV 1+2 Ab+HIV1 p24 Ag IA Ql Non-Reactive Normal Nonreactive [facility] Comment on above: Order Comment: Speci men Type: BLOOD SPECIMENOrdering Facility: [facility] Address: [address] [place] [address] Performed By: #### 5 195-3, 62659-6, 44821-6 ####[facility] LABIA [id number] [place] [address] [place] HIV immunoassay testing algorithm interpretation (S/P/Bld) [Interp] Normal [facility] Comment on above: Order Comment: Speci men Type: BLOOD SPECIMENOrdering Facility: [facility] Address: [address] [place] [address] Result Comment: No e vidence of HIV-1 or HIV-2 infection. Should recent infection be suspected, repeat testing may be considered 2-3 weeks after this draw. [place] Rev. Code 3701.243(E): This information has been [...] test results or diagnoses. Performed By: #### 5 195-3, 00490-6, 47206-2 ####[facility] LABIA [id number] [place] [address] [place] HbA1c (Bld)on 07-31-2024 Average glucose Estimated from glycated hemoglobin (Bld) [Mass/Vol] 82 mg/dL Normal [facility] Comment on above: Order Comment: Speci men Type: BLOOD SPECIMEN [facility] Address: [address] [place] [address] Result Comment: eAG: (Estimated average glucose) is a calculated value from HgbA1c and is financial sales representative of the average blood glucose level in the last 2-3 month period. Performed By: #### T SPN #### [facility] CLIA [id number] [address] [place] [address] [place] HbA1c (Bld) [Mass fraction] 4.5 % Normal 4.3-5.6 [facility] Comment on above: Order Comment: Speci men Type: BLOOD SPECIMEN [facility] Address: [address] [place] [address] Result Comment: [place] Diabetes Association guidelines indicate that patients with HgbA1c in the range 5.7-6.4% are at increased risk for development of diabetes, and intervention by lifestyle modification may be beneficial. HgbA1c greater or equal to 6.5% is considered diagnostic of diabetes. Performed By: #### T SPN #### [facility] CLIA [id number] [address] [place] [address] [place] PAP TESTon 07-31-2024 ADEQUACY Satisfactory for interpretation. Normal [facility] Comment on above: Order Comment: Speci men Type: FLUID SPECIMEN [facility] Address: [address] [place] [address] Performed By: #### L [id number] #### [facility] CLIA [id number] [address] [place] [address] [place] CASE REPORT Normal [facility] Comment on above: Order Comment: Speci men Type: FLUID SPECIMEN [facility] Address: [address] [place] [address] Result Comment: Gyne cologic Cytology Report Case: [id number] Authorizing Provider: Annie Thakur APRN.CNM Collected: 07/31/2024 09:53 AM Ordering Location: OB/Gynecology Received: 07/31/2024 12:21 PM First Screen: Nica Arguello CT, ASCP Specimen: Pap Test, ThinPrep, Cervix Performed By: #### L [id number] #### [facility] CLIA [id number] [address] [place] [address] [place] CLINICAL HISTORY, CYTOLOGY, SOFTWARE DEVELOPMENT TEST ENGINEER Routine Exam Normal [facility] Comment on above: Order Comment: Speci men Type: FLUID SPECIMEN [facility] Address: [address] [place] [address] Performed By: #### L [id number] #### [facility] CLIA [id number] [address] [place] [id number] [place] FINAL PERFORMING LAB Normal [facility] Comment on above: Order Comment: Speci men Type: FLUID SPECIMEN [facility] Address: [address] [place], [place] [address] Result Comment: Tech nical component, senior cytogenetics laboratory director screening performed at [facility], [address] [place] [address] [place] [address] CLIA# [id number] Diagnostic interpretation performed at [facility], [address] [place] [address] [place] [address] CLIA# [id number] Juice Weigher: Timi Floyd M.D. Performed By: #### L [id number] #### [facility] CLIA [id number] [address] [place], [place] [address] [place] INTERPRETATION, CYTOLOGY, SOFTWARE DEVELOPMENT TEST ENGINEER Normal [facility] Comment on above: Order Comment: Speci men Type: FLUID SPECIMEN [facility] Address: [address] [place] [address] Result Comment: Nega tive for intraepithelial lesion or malignancy. Performed By: #### L [id number] #### [facility] CLIA [id number] [address] [place] [address] [place] LMP 06/01/2024 Normal [facility] Comment on above: Order Comment: Speci men Type: FLUID SPECIMEN [facility] Address: [address] [place] [address] Performed By: #### L [id number] #### [facility] CLIA [id number] [address] [place], [place] [address] [place] PAP DISCLAIMER COMMENT The Pap Smear is a screening test for cervical cancer. False negative results occur with all screening tests, emphasizing the need for rescreening at recommended intervals, and clinical correlation. Normal [facility] Comment on above: Order Comment: Speci men Type: FLUID SPECIMEN [facility] Address: [address] [place] [address] Performed By: #### L [id number] #### [facility] CLIA [id number] [address] [place] [address] [place] PAP ORNAMENTAL PAINTER COMMENT This specimen has been analyzed by the ThinPrep Imaging System, an automated imaging and review system, which assists the laboratory in evaluating cells on ThinPrep Pap tests. Following automated imaging, selected maki from every slide are reviewed by a senior cytogenetics laboratory director. Normal [facility] Comment on above: Order Comment: Speci men Type: FLUID SPECIMEN [facility] Address: [address] [place] [address] Performed By: #### L [id number] #### [facility] CLIA [id number] [address] [place] [address] [place] [facility] SURVEYOR ULTRASOUNDon 07-31-19 Indication Viability; confirm cardiac activity [...] Read By: Annie Thakur CNM MATERNAL MEDICINE [facility] Radiology Study observation (narrative) [facility] RUBELLA IGG ANTIBODYon 07-31 RUBELLA IGG AB, QUAL Positive Normal Positive [facility] Comment on above: Order Comment: Speci men Type: BLOOD SPECIMEN [facility] Address: [address] [place] [address] Result Comment: The result suggests recent or past exposure to Rubella virus or history of Rubella vaccination. Positive result may also be seen due to presence of passively-transferred antibodies. Please correlate with patient's history. Performed By: #### T SPN #### [facility] CLIA [id number] [address] [place] [address] [place] Reagin and Treponema pallidu m IgG and IgM [Interp]on 07-31-2024 T. pallidum IgG+IgM IA Ql (S) Non-Reactive Normal Nonreactive [facility] Comment on above: Order Comment: Speci men Type: BLOOD SPECIMENOrdering Facility: [facility] Address: [address] [place] [address] Performed By: #### 5 195-3, 92838-4, 32034-1 ####[facility] LABCLIA [id number] [place] [address] [place] Reagin+T pallidum IgG+IgM Se rPl-Impon 07-31-2024 Reagin and Treponema pallidum IgG and IgM [Interp] Cannot exclude recent Treponemal infection if specimen collected within 7-10 days after appearance of suspect lesions or 2-3 weeks after an exposure. Clinical correlation is required. Normal [facility] Comment on above: Order Comment: Speci men Type: BLOOD SPECIMENOrdering Facility: [facility] Address: [address] [place] [address] Performed By: #### 5 195-3, 16943-0, 62314-1 ####[facility] LABCLIA [id number] [place] [id number] [place] TYPE + SCREEN PRENATALon ABO O Normal [facility] Comment on above: Order Comment: Speci men Type: BLOOD SPECIMEN [facility] Address: [address] [place] [address] Performed By: #### T SPN #### [facility] CLIA [id number] [address] [place] [address] [place] Rh Nom (Bld) Positive Normal [facility] Comment on above: Order Comment: Speci men Type: BLOOD SPECIMEN [facility] Address: [address] [place] [address] Performed By: #### T SPN #### [facility] CLIA [id number] [address] [place] [address] [place] TYPE AND SCREEN EXPIRATION 08/03/2024 23:59 Normal [facility] Comment on above: Order Comment: Speci men Type: BLOOD SPECIMEN [facility] Address: [address] [place] [address] Performed By: #### T SPN #### [facility] CLIA [id number] [address] [place] [address] [place] POCT URINE PREGNANCYon 10-24 HCG ( test) Ql (U) [facility] Comment on above: Order Comment: Relea se to patient->Immediate HCG ( test) Ql (U) Negative [facility] Comment on above: Order Comment: Relea se to patient->Immediate POCT RAPID STREP TESTon 07-17 EXPIRATION DATE: [facility] Comment on above: Order Comment: Relea se to patient->Immediate EXPIRATION DATE: 06/06/2024 [facility] Comment on above: Order Comment: Relea se to patient->Immediate LOT NUMBER [facility] Comment on above: Order Comment: Relea se to patient->Immediate LOT NUMBER [id number] [facility] Comment on above: Order Comment: Relea se to patient->Immediate S. pyogenes Ag IA Ql (Unsp spec) Negative [facility] Comment on above: Order Comment: Relea se to patient->Immediate S. pyogenes Ag IA Ql (Unsp spec) [facility] Comment on above: Order Comment: Oga se to patient->Immediate POCT URINE PREGNANCYon 01-16 EXPIRATION DATE: [facility] Comment on above: Order Comment: Oga se to patient->Immediate EXPIRATION DATE: 03/16/2024 [facility] Comment on above: Order Comment: Relea se to patient->Immediate HCG ( test) Ql (U) [facility] Comment on above: Order Comment: Relea se to patient->Immediate HCG ( test) Ql (U) Negative [facility] Comment on above: Order Comment: Relea se to patient->Immediate LOT NUMBER [id number] [facility] Comment on above: Order Comment: Relea se to patient->Immediate LOT NUMBER [facility] Comment on above: Order Comment: Oga se to patient->Immediate MEDICAL STAFFon 11-19-2022 Agricultural Service Worker Authentication Interface Message Text Reports good rest [...] Continue PP care support Teaching Discharge Normal [facility] PATIENT INSTRUCTIONSon 11-19 Agricultural Service Worker Authentication Interface Message Text [facility] [phone] Pamper Yourself! Congratulations on the of your [...] at first be bright red. It will slip box changer several days to dark red, to brown, to brownish yellow, and then to white. It should not have a bad or foul odor. Let your bleeding be your guide. If you are doing too much at home, your bleeding will increase and become bright red again. This will be your sign to take it easy. mothers often have no periods while multimedia services coordinator. Bottle feeding mothers can expect to have [...] you become (more content not included)... Normal [facility] NOTEon 11-18-2022 Agricultural Service Worker Authentication Interface Message Text 11/18/22 9623 History Consult Breastfed Previous Child Yes Breastfed Previous Child for 3-6 months (pumped also) Breasts/Nipples Left Breast Soft;Reported by patient Right Breast Soft;Reported by patient Left Nipple Intact;Tender;Reporte d by patient Right Nipple Intact;Tender;Reporte d by patient Interventions General Interventions Vorc-or-vabo;On cue feeding;Assist to awaken Nipple Management Assess Correct latch;Repositioned correctly;Deeper, asymmetrical latch (Discussed with pt) Infant Weight Loss Assessed infant output;Encouraged frequent feeds Assessment Status BF well-States BF well; improving;Reported by patient Position Varied positions Maternal Stress Level Relaxed;Confident;Rep orted by patient;Observed by LC Support System Positive Maternal Interaction with Attentive;Affectionat e Breast Pump Verbalizes understanding of expression Nipple Shield N/A-Does not apply Assessment Infant Location With Mother in room Position Preferred Side Lying Interest Exhibits feeding cues;Latches easily;Reported by mother;Observed by LC State Relaxed;Sleepy;Observ ed by LC Feeding Assessment Strong suck;Infant output appropriate for age;Frequency of feedings appropriate;Encourage d frequent feeds;Gentle chin pull demonstrated;Retracts /tucks lips;Reported by mother;Observed by LC Infant Oral Assessment Normal tongue, palate, jaw Supplementation Given No Spoke with pt who is an experienced mother who states that her first child had a tongue tie with a revision. Pt inquiring if current infant might have a tongue tie as well. Infant noted to be able to get tongue pat bottom lip. did appear to have a receding chin while tucking in bottom lip at times. Discussed with pt to try different positions while and see if that helps with infant's latch. Pt voiced understanding. Infant noted to be asleep in mother's arms. [...] with and questions, concerns or assistance needed. [facility] [email or web address] Interface Message Text 11/18/22 1220 History Consult Patient unavailable;Other/com ment (Pt sleeping) [facility] [email or web address] Interface Message Text 11/18/22 1032 History Consult Other/comment (Pt has visitors at this time and requests that come back later.) [facility] MEDICAL STAFFon 11-18-2022 Agricultural Service Worker Home Dialysis Plusation Interface Message Text Reports good rest and [...] Stable Breast Continue PP care support Teaching [facility] H&Jose 11-17-2022 [email or web address] Interface Message Text Attestation signed by Sharyn Waldron MD at 11/17/222105 I have reviewed this patient's H noted in triage. If persists, will need labs and L [facility] Obstetrics Admission Note Patient Name: Yanet Banks : 1995 11/17/2022 8:12 PM MEDICAL DECISION MAKING: records reviewed. Case discussed with Dr. Waldron, museum archivist Differential Diagnosis:n/a Interventions: NST Assessment/Plan 26 year [...] Final Glucose (more content not included)... Normal [facility] L&D DELIVERYon 11-17-2022 Agricultural Service Worker Authentication Interface Message Text [facility] Spontaneous Vaginal Delivery Note Delivery Summary for Yanet Banks : 1995 Information for the patient's : Partha Banks [[id number]] Delivery Information: Date/Time of Delivery: 11/17/2022 8:50 PM By: Normal Spontaneous Vaginal Delivery Clinician: Dustin Benavides Maternal Information: Episiotomy: None Lacerations: None Repair suture: n/a Repair # of packets: 0 Blood loss (ml): 200 Information for the patient's : Partha Banks [[id number]] [place] Information: Living?: Living Presentation/position : Cephalic Left Occiput Anterior Resuscitation: Tactile Stimulation;Bulb Suction Anesthesia: None Cord information: Vessels 3 Vessels Disposition of cord blood Lab Blood gases sent? No Complications None Placenta: Delivered Date Removal Spontaneous Appearance Intact [place] Measurements: Weight APGARS One minute Five minutes [...] gentle downward pressure. Posterior shoulder followed easily. [place] to maternal abdomen, dried, and stimulated. Vigorous cry. Cord clamping was delayed until cord no longer pulsating, the cord was cut by FOB. Infant placed skin to skin with FOB. Yanet assisted from tub to bed by RN and CNM. Placenta delivered intact and spontaneously. Uterus firm, bleeding small. Vagina and perineum inspected. no lacerations present. Hemostasis assured. Mom and baby well. It Field Technician verified all counts correct. Dr. Waldron notified of . Electronically signed by: Dustin Benavides APRN, 11/17/2022 9:38 PM Normal [facility] PATIENT INSTRUCTIONSon 11-17 Agricultural Service Worker Authentication Interface Message Text Thank you for choosing [facility] [place]. It was a pleasure to see you today! Please call [phone] for all your office needs. Your opinion [...] improve your experience. We are available via [employer] messages and phone calls during regular business hours, but if there is an urgent need or you need to be seen after hours (in triage or the ER) please call our after hours number [phone]. You will be connected to the clinical documentation specialist physician or nurses director. If a hospital visit is recommended please always go to [facility] located at [address] [place] [address] in [place]. Getting your test results is easier than ever! There are several ways you could receive results If you are a [employer] user this allows you rapid access to results. Most test results are released within 24 hours and may be viewable to you even before your provider reviews the results, or Clinical staff may call you with any abnormal results to discuss further your plan of care with the provider, or you could receive a letter for normal results. Attention [employer] Users! Want to send us a non urgent message, check your test results, request a medication refill, or schedule an appointment at your convenience? It's fast, safe, and easy. Just log in to [email or web address] and enter your user name and password. If you don't have a user name or password please ask one of our very qualified staff members and they will be happy to assist you in getting signed up. These messages are checked during office hours only. Please still call the office or physician clinical documentation specialist with any urgent medical issues. For technical support, call If you had labs ordered today you can go to any [facility] lab and walk in with no appointment needed. If any imaging was ordered for you, central scheduling should call you within the week. If you do not hear from them, you can call them at [phone]. Any outpatient referrals with be taken care of by our staff. If you do not hear from their office within 1 week, please call our office at [phone] so we can check on the status for you. We all want to [facility] Normal Provider Locations PATIENT INSTRUCTIONSon 11-09 Agricultural Service Worker Authentication Interface Message Text Thank you for choosing [facility] [place]. It was a pleasure to see you today! Please call [phone] for all your office needs. Your opinion [...] improve your experience. We are available via [employer] messages and phone calls during regular business hours, but if there is an urgent need or you need to be seen after hours (in triage or the ER) please call our after hours number [phone]. You will be connected to the clinical documentation specialist physician or nurses director. If a hospital visit is recommended please always go to [facility] located at [address] [facility] in [place]. Getting your test results is easier than ever! There are several ways you could receive results If you are a [employer] user this allows you rapid access to results. Most test results are released within 24 hours and may be viewable to you even before your provider reviews the results, or Clinical staff may call you with any abnormal results to discuss further your plan of care with the provider, or you could receive a letter for normal results. Attention [employer] Users! Want to send us a non urgent message, check your test results, request a medication refill, or schedule an appointment at your convenience? It's fast, safe, and easy. Just log in to [email or web address] and enter your user name and password. If you don't have a user name or password please ask one of our very qualified staff members and they will be happy to assist you in getting signed up. These messages are checked during office hours only. Please still call the office or physician clinical documentation specialist with any urgent medical issues. For technical support, call If you had labs ordered today you can go to any [facility] lab and walk in with no appointment needed. If any imaging was ordered for you, central scheduling should call you within the week. If you do not hear from them, you can call them at [phone]. Any outpatient referrals with be taken care of by our staff. If you do not hear from their office within 1 week, please call our office at [phone] so we can check on the status for you. We all want to Thank you for choosing [facility]! Normal Provider Locations PROGRESS NOTESon 11-09-2022 Agricultural Service Worker Authentication Interface Message Text Pt presents today for routine OB visit @ 38+1 +FM, no bleeding, no LOF Feeling well overall, ready to meet baby Hurt her back sitting for a long period of time Discussed comfort measures All set for FBBC She has no other questions or concerns S=D RTO 1 week Normal Provider Locations Agricultural Service Worker Authentication Interface Message Text Patient Active Problem [...] NON REACTIVE Provider Locations PATIENT INSTRUCTIONSon 11-02 Agricultural Service Worker Authentication Interface Message Text Thank you for choosing [facility] [place]. It was a pleasure to see you today! Please call [phone] for all your office needs. Your opinion [...] improve your experience. We are available via [employer] messages and phone calls during regular business hours, but if there is an urgent need or you need to be seen after hours (in triage or the ER) please call our after hours number [phone]. You will be connected to the clinical documentation specialist physician or nurses director. If a hospital visit is recommended please always go to [facility] located at [address] [place] [address]. Getting your test results is easier than ever! There are several ways you could receive results If you are a [employer] user this allows you rapid access to results. Most test results are released within 24 hours and may be viewable to you even before your provider reviews the results, or Clinical staff may call you with any abnormal results to discuss further your plan of care with the provider, or you could receive a letter for normal results. Attention [employer] Users! Want to send us a non urgent message, check your test results, request a medication refill, or schedule an appointment at your convenience? It's fast, safe, and easy. Just log in to [email or web address] and enter your user name and password. If you don't have a user name or password please ask one of our very qualified staff members and they will be happy to assist you in getting signed up. These messages are checked during office hours only. Please still call the office or physician clinical documentation specialist with any urgent medical issues. For technical support, call If you had labs ordered today you can go to any [facility] lab and walk in with no appointment needed. If any imaging was ordered for you, central scheduling should call you within the week. If you do not hear from them, you can call them at [phone]. Any outpatient referrals with be taken care of by our staff. If you do not hear from their office within 1 week, please call our office at [phone] so we can check on the status for you. We all want to Thank you for choosing [facility]! Normal Provider Locations PROGRESS NOTESon 11-02-2022 Agricultural Service Worker Authentication Interface Message Text Patient Active Problem [...] uc/std/pl WNL Pertussis allergy Normal Provider Locations Agricultural Service Worker Authentication Interface Message Text Pt presents today [...] ISOLATED Normal Provider Locations PATIENT INSTRUCTIONSon 10-26 Agricultural Service Worker Authentication Interface Message Text Thank you for choosing [facility] [place]. It was a pleasure to see you today! Please call [phone] for all your office needs. Your opinion [...] improve your experience. We are available via [employer] messages and phone calls during regular business hours, but if there is an urgent need or you need to be seen after hours (in triage or the ER) please call our after hours number [phone]. You will be connected to the clinical documentation specialist physician or nurses director. If a hospital visit is recommended please always go to [facility] located at [address] [facility] in [place]. Getting your test results is easier than ever! There are several ways you could receive results If you are a [employer] user this allows you rapid access to results. Most test results are released within 24 hours and may be viewable to you even before your provider reviews the results, or Clinical staff may call you with any abnormal results to discuss further your plan of care with the provider, or you could receive a letter for normal results. Attention [employer] Users! Want to send us a non urgent message, check your test results, request a medication refill, or schedule an appointment at your convenience? It's fast, safe, and easy. Just log in to [email or web address] and enter your user name and password. If you don't have a user name or password please ask one of our very qualified staff members and they will be happy to assist you in getting signed up. These messages are checked during office hours only. Please still call the office or physician clinical documentation specialist with any urgent medical issues. For technical support, call If you had labs ordered today you can go to any [facility] lab and walk in with no appointment needed. If any imaging was ordered for you, central scheduling should call you within the week. If you do not hear from them, you can call them at [phone]. Any outpatient referrals with be taken care of by our staff. If you do not hear from their office within 1 week, please call our office at [phone] so we can check on the status for you. We all want to Thank you for choosing [facility]! Normal Provider Locations PROGRESS NOTESon 10-26-2022 Agricultural Service Worker Authentication Interface Message Text Patient Active Problem [...] uc/std/pl WNL Pertussis allergy Normal Provider Locations Agricultural Service Worker Authentication Interface Message Text Pt presents today for routine OB visit @ 36+1 +FM, no bleeding, no LOF Feeling well overall, ready to meet baby soon! GBS self collected All set for FBBC She has no other questions or concerns S=D RTO 1 week Normal Provider Locations PATIENT INSTRUCTIONSon 10-12 Agricultural Service Worker Authentication Interface Message Text Thank you for choosing [facility] [place]. It was a pleasure to see you today! Please call [phone] for all your office needs. Your opinion [...] improve your experience. We are available via [employer] messages and phone calls during regular business hours, but if there is an urgent need or you need to be seen after hours (in triage or the ER) please call our after hours number [phone]. You will be connected to the clinical documentation specialist physician or nurses director. If a hospital visit is recommended please always go to [facility] located at [address] [facility] in [place]. Getting your test results is easier than ever! There are several ways you could receive results If you are a [employer] user this allows you rapid access to results. Most test results are released within 24 hours and may be viewable to you even before your provider reviews the results, or Clinical staff may call you with any abnormal results to discuss further your plan of care with the provider, or you could receive a letter for normal results. Attention [employer] Users! Want to send us a non urgent message, check your test results, request a medication refill, or schedule an appointment at your convenience? It's fast, safe, and easy. Just log in to [email or web address] and enter your user name and password. If you don't have a user name or password please ask one of our very qualified staff members and they will be happy to assist you in getting signed up. These messages are checked during office hours only. Please still call the office or physician clinical documentation specialist with any urgent medical issues. For technical support, call If you had labs ordered today you can go to any [facility] lab and walk in with no appointment needed. If any imaging was ordered for you, central scheduling should call you within the week. If you do not hear from them, you can call them at [phone]. Any outpatient referrals with be taken care of by our staff. If you do not hear from their office within 1 week, please call our office at [phone] so we can check on the status for you. We all want to Thank you for choosing [facility]! Normal Provider Locations PROGRESS NOTESon 10-12-2022 Agricultural Service Worker Authentication Interface Message Text Routine OB visit @ 34+1 Good FM Denies VB, LOF, or ctx Has 36 week appointment with FBBC scheduled FBBC paperwork signed today, patient remains low risk candidate RPR/CBC ordered S=D RTO 2 weeks Normal Provider Locations Agricultural Service Worker Authentication Interface Message Text Patient Active Problem [...] allergy. Normal Provider Locations PATIENT INSTRUCTIONSon 09-28 Agricultural Service Worker Authentication Interface Message Text Thank you for choosing [facility] [place]. It was a pleasure to see you today! Please call [phone] for all your office needs. Your opinion [...] improve your experience. We are available via [employer] messages and phone calls during regular business hours, but if there is an urgent need or you need to be seen after hours (in triage or the ER) please call our after hours number [phone]. You will be connected to the clinical documentation specialist physician or nurses director. If a hospital visit is recommended please always go to [facility] located at [address] [facility] in [place]. Getting your test results is easier than ever! There are several ways you could receive results If you are a [employer] user this allows you rapid access to results. Most test results are released within 24 hours and may be viewable to you even before your provider reviews the results, or Clinical staff may call you with any abnormal results to discuss further your plan of care with the provider, or you could receive a letter for normal results. Attention [employer] Users! Want to send us a non urgent message, check your test results, request a medication refill, or schedule an appointment at your convenience? It's fast, safe, and easy. Just log in to [email or web address] and enter your user name and password. If you don't have a user name or password please ask one of our very qualified staff members and they will be happy to assist you in getting signed up. These messages are checked during office hours only. Please still call the office or physician clinical documentation specialist with any urgent medical issues. For technical support, call If you had labs ordered today you can go to any [facility] lab and walk in with no appointment needed. If any imaging was ordered for you, central scheduling should call you within the week. If you do not hear from them, you can call them at [phone]. Any outpatient referrals with be taken care of by our staff. If you do not hear from their office within 1 week, please call our office at [phone] so we can check on the status for you. We all want to Thank you for choosing [facility]! Normal Provider Locations PROGRESS NOTESon 09-28-2022 Agricultural Service Worker Authentication Interface Message Text Patient Active Problem List Diagnosis Date Noted ? Supervision of other normal , antepartum 04/27/2022 Planning FBBC Urine Glucose negative Protein negative Leukocytes positive - trace RBC negative Nitrites negative Here for ob check O+ gtt 88/hgb 13.1 +fm Normal Provider Locations Agricultural Service Worker Authentication Interface Message Text + movement Feels good Discussed FBBC consent she needs to bring in No other concerns LMixCNM Normal Provider Locations PATIENT INSTRUCTIONSon 09-12 Agricultural Service Worker Authentication Interface Message Text Thank you for choosing [facility] [place]. It was a pleasure to see you today! Please call [phone] for all your office needs. Your opinion [...] improve your experience. We are available via [employer] messages and phone calls during regular business hours, but if there is an urgent need or you need to be seen after hours (in triage or the ER) please call our after hours number [phone]. You will be connected to the clinical documentation specialist physician or nurses director. If a hospital visit is recommended please always go to [facility] located at [address] [place] [address] in [place]. Getting your test results is easier than ever! There are several ways you could receive results If you are a [employer] user this allows you rapid access to results. Most test results are released within 24 hours and may be viewable to you even before your provider reviews the results, or Clinical staff may call you with any abnormal results to discuss further your plan of care with the provider, or you could receive a letter for normal results. Attention [employer] Users! Want to send us a non urgent message, check your test results, request a medication refill, or schedule an appointment at your convenience? It's fast, safe, and easy. Just log in to [email or web address] and enter your user name and password. If you don't have a user name or password please ask one of our very qualified staff members and they will be happy to assist you in getting signed up. These messages are checked during office hours only. Please still call the office or physician clinical documentation specialist with any urgent medical issues. For technical support, call If you had labs ordered today you can go to any [facility] lab and walk in with no appointment needed. If any imaging was ordered for you, central scheduling should call you within the week. If you do not hear from them, you can call them at [phone]. Any outpatient referrals with be taken care of by our staff. If you do not hear from their office within 1 week, please call our office at [phone] so we can check on the status for you. We all want to Thank you for choosing [facility]! Normal Provider Locations PROGRESS NOTESon 09-12-2022 Agricultural Service Worker Authentication Interface Message Text Patient Active Problem List Diagnosis Date Noted ? Supervision of other normal , antepartum 04/27/2022 Planning FBBC Urine Glucose negative Protein negative Leukocytes negative RBC negative Nitrites negative patient presents for ob check states +FM O+ gtt 88 hgb 13.1 tdap - allergy No questions or concerns at this time. Normal Provider Locations PATIENT INSTRUCTIONSon 08-31 Agricultural Service Worker Authentication Interface Message Text Thank you for choosing [facility] [place]. It was a pleasure to see you today! Please call [phone] for all your office needs. Your opinion [...] improve your experience. We are available via [employer] messages and phone calls during regular business hours, but if there is an urgent need or you need to be seen after hours (in triage or the ER) please call our after hours number [phone]. You will be connected to the clinical documentation specialist physician or nurses director. If a hospital visit is recommended please always go to [facility] located at [address] [place] [address] in [place]. Getting your test results is easier than ever! There are several ways you could receive results If you are a [employer] user this allows you rapid access to results. Most test results are released within 24 hours and may be viewable to you even before your provider reviews the results, or Clinical staff may call you with any abnormal results to discuss further your plan of care with the provider, or you could receive a letter for normal results. Attention [employer] Users! Want to send us a non urgent message, check your test results, request a medication refill, or schedule an appointment at your convenience? It's fast, safe, and easy. Just log in to [email or web address] and enter your user name and password. If you don't have a user name or password please ask one of our very qualified staff members and they will be happy to assist you in getting signed up. These messages are checked during office hours only. Please still call the office or physician clinical documentation specialist with any urgent medical issues. For technical support, call If you had labs ordered today you can go to any [facility] lab and walk in with no appointment needed. If any imaging was ordered for you, central scheduling should call you within the week. If you do not hear from them, you can call them at [phone]. Any outpatient referrals with be taken care of by our staff. If you do not hear from their office within 1 week, please call our office at [phone] so we can check on the status for you. We all want to Thank you for choosing [facility]! Normal Provider Locations PROGRESS NOTESon 08-31-2022 Agricultural Service Worker Authentication Interface Message Text Patient Active Problem List Diagnosis Date Noted ? Supervision of other normal , antepartum 04/27/2022 Planning FBBC Urine Glucose negative Protein negative Leukocytes positive - trace RBC negative Nitrites negative Here for ob check O+ gtt 88/hgb 13.1 Discuss varicose vein on labia Normal Provider Locations Agricultural Service Worker Authentication Interface Message Text Pt presents for [...] <140 Provid er Locations PATIENT INSTRUCTIONSon 08-02 Agricultural Service Worker Authentication Interface Message Text Thank you for choosing [facility] [place]. It was a pleasure to see you today! Please call [phone] for all your office needs. Your opinion [...] improve your experience. We are available via [employer] messages and phone calls during regular business hours, but if there is an urgent need or you need to be seen after hours (in triage or the ER) please call our after hours number [phone]. You will be connected to the clinical documentation specialist physician or nurses director. If a hospital visit is recommended please always go to [facility] located at [address] in [place]. Getting your test results is easier than ever! There are several ways you could receive results If you are a [employer] user this allows you rapid access to results. Most test results are released within 24 hours and may be viewable to you even before your provider reviews the results, or Clinical staff may call you with any abnormal results to discuss further your plan of care with the provider, or you could receive a letter for normal results. Attention [employer] Users! Want to send us a non urgent message, check your test results, request a medication refill, or schedule an appointment at your convenience? It's fast, safe, and easy. Just log in to [email or web address] and enter your user name and password. If you don't have a user name or password please ask one of our very qualified staff members and they will be happy to assist you in getting signed up. These messages are checked during office hours only. Please still call the office or physician clinical documentation specialist with any urgent medical issues. For technical support, call If you had labs ordered today you can go to any [facility] lab and walk in with no appointment needed. If any imaging was ordered for you, central scheduling should call you within the week. If you do not hear from them, you can call them at [phone]. Any outpatient referrals with be taken care of by our staff. If you do not hear from their office within 1 week, please call our office at [phone] so we can check on the status for you. We all want to Thank you for choosing [facility] Normal Provider Locations PROGRESS NOTESon 08-02-2022 Agricultural Service Worker Authentication Interface Message Text Pt presents today for routine OB visit @ 24+0 +FM, no bleeding, no LOF Feeling well overall Plans to do GTT in next few weeks Will call FBBC between 28-32 weeks She has no other questions or concerns S=D RTO 4 weeks Normal Provider Locations Agricultural Service Worker Authentication Interface Message Text Patient Active Problem List Diagnosis Date Noted ? Supervision of other normal , antepartum 04/27/2022 Planning FBBC Urine Glucose negative Protein negative Leukocytes positive - 1+ RBC negative Nitrites negative Here for exam. Will do GTT around 26 weeks. No concerns or questions today. +FM, says baby is moving well. Normal Provider Locations PATIENT INSTRUCTIONSon 06-30 Agricultural Service Worker Authentication Interface Message Text Thank you for choosing [facility] [place]. It was a pleasure to see you today! Please call [phone] for all your office needs. Your opinion [...] improve your experience. We are available via [employer] messages and phone calls during regular business hours, but if there is an urgent need or you need to be seen after hours (in triage or the ER) please call our after hours number [phone]. You will be connected to the clinical documentation specialist physician or nurses director. If a hospital visit is recommended please always go to [facility] located at [address] [place] [address]. Getting your test results is easier than ever! There are several ways you could receive results If you are a [employer] user this allows you rapid access to results. Most test results are released within 24 hours and may be viewable to you even before your provider reviews the results, or Clinical staff may call you with any abnormal results to discuss further your plan of care with the provider, or you could receive a letter for normal results. Attention [employer] Users! Want to send us a non urgent message, check your test results, request a medication refill, or schedule an appointment at your convenience? It's fast, safe, and easy. Just log in to [email or web address] and enter your user name and password. If you don't have a user name or password please ask one of our very qualified staff members and they will be happy to assist you in getting signed up. These messages are checked during office hours only. Please still call the office or physician clinical documentation specialist with any urgent medical issues. For technical support, call If you had labs ordered today you can go to any [facility] lab and walk in with no appointment needed. If any imaging was ordered for you, central scheduling should call you within the week. If you do not hear from them, you can call them at [phone]. Any outpatient referrals with be taken care of by our staff. If you do not hear from their office within 1 week, please call our office at [phone] so we can check on the status for you. We all want to Thank you for choosing [facility] Normal Provider Locations PROGRESS NOTESon 06-30-2022 Agricultural Service Worker Authentication Interface Message Text Patient Active Problem [...] hgb 14.1 uc/std/pl WNL Normal Provider Locations Agricultural Service Worker Authentication Interface Message Text Yanet Banks was seen in [facility] 06/30/2022. Normal [facility] PATIENT INSTRUCTIONSon 05-25 Agricultural Service Worker Authentication Interface Message Text Thank you for choosing [facility] [place]. It was a pleasure to see you today! Please call [phone] for all your office needs. Your opinion [...] improve your experience. We are available via [employer] messages and phone calls during regular business hours, but if there is an urgent need or you need to be seen after hours (in triage or the ER) please call our after hours number [phone]. You will be connected to the clinical documentation specialist physician or nurses director. If a hospital visit is recommended please always go to [facility] located at [address] [facility] in [place]. Getting your test results is easier than ever! There are several ways you could receive results If you are a [employer] user this allows you rapid access to [...] safe, and easy. Just log in to [email or web address] and enter your user name and password. If you don't have a user name or password please ask one of our very qualified staff members and they will be happy to assist you in getting signed up. These messages are checked during office hours only. Please still call the office or physician clinical documentation specialist with any urgent medical issues. For technical support, call If you had labs ordered today you can go to any [facility] lab and walk in with no appointment needed. If any imaging was ordered for you, central scheduling should call you within the week. If you do not hear from them, you can call them at [phone]. Any outpatient referrals with be taken care of by our staff. If you do not hear from their office within 1 week, please call our office at [phone] so we can check on the status for you. We all want to Thank you for choosing [facility] Normal Provider Locations PROGRESS NOTESon 05-25-2022 Agricultural Service Worker Authentication Interface Message Text Patient Active Problem [...] concerns at this time Normal Provider Locations Agricultural Service Worker Authentication Interface Message Text Yanet Darren [phone] 1995 Patient Active Problem List Diagnosis ? [...] WBC (Bld) [#/Vol] 7.1 10*3/uL Normal 3.5-10.9 [facility] Locations ANESTH ADDENDUMon 04-27-2022 Agricultural Service Worker Authentication Interface Message Text Addended by: ZAIDA [...] DETECTED Normal Provider Locations PROGRESS NOTESon 04-27-2022 Agricultural Service Worker Authentication Interface Message Text There are no [...] concerns at this time Normal Provider Locations Agricultural Service Worker Authentication Interface Message Text New OB visit [...] weeks Normal Provider Locations BASIC METABOLIC PANELon 10- Anion gap [Moles/Vol] 13 mmol/L Normal -15 [facility] Comment on above: Performed By: #### L [id number] #### [place] [address] Calcium [Mass/Vol] 9.5 mg/dL Normal 8.5-10.5 [facility] Comment on above: Performed By: #### L [id number] #### [place] [id number] Chloride [Moles/Vol] 101 mmol/L Normal 96-110 [facility] Comment on above: Performed By: #### L [id number] #### [place] [id number] CO2 [Moles/Vol] 22 mmol/L Normal 19-32 [facility] Comment on above: Performed By: #### L [id number] #### [place] [id number] Creatinine [Mass/Vol] 0.6 mg/dL Normal 0.5-1.2 [facility] Comment on above: Performed By: #### L [id number] #### [place] [id number] ESTIMATED GFR 126 mL/min/1.73m*2 Normal >=60 [facility] Comment on above: Performed By: #### L [id number] #### [address] Glucose [Mass/Vol] 112 mg/dL High 70-99 [facility] Comment on above: Performed By: #### L [id number] #### [place] [id number] Potassium [Moles/Vol] 3.7 mmol/L Normal 3.4-5.3 [facility] Comment on above: Performed By: #### L [id number] #### [place] [id number] Sodium [Moles/Vol] 136 mmol/L Normal 135-148 [facility] Comment on above: Performed By: #### L [id number] #### [place] [id number] Urea nitrogen [Mass/Vol] 10 mg/dL Normal 3-29 [facility] Comment on above: Performed By: #### L [id number] #### [place] [address] Urea nitrogen/Creatinine [Mass ratio] 17 mg/mg Normal 7-25 [facility] Comment on above: Performed By: #### L [id number] #### [place] [address] Anion gap [Moles/Vol] 13 mmol/L 5 - 15 [facility] Calcium [Mass/Vol] 9.5 mg/dL 8.5 - 10.5 mg/dL [facility] Chloride [Moles/Vol] 101 mmol/L [facility] CO2 [Moles/Vol] 22 mmol/L [facility] Creatinine [Mass/Vol] 0.6 mg/dL 0.5 - 1.2 mg/dL [facility] GFR/1.73 sq M.predicted among blacks MDRD (S/P/Bld) [Vol rate/Area] 126 mL/min/{1.73_m2} - PINF [facility] Glucose [Mass/Vol] 112 mg/dL High 70 - 99 mg/dL Pre [facility] Interpretation and review of laboratory results Abnormal [facility] Potassium [Moles/Vol] 3.7 mmol/L [facility] Sodium [Moles/Vol] 136 mmol/L [facility] Urea nitrogen [Mass/Vol] 10 mg/dL 3 - 29 mg/dL [facility] Urea nitrogen/Creatinine [Mass ratio] 17 mg/mg 7 - 25 [facility] COMPLETE BLOOD COUNT WITH DI FFERENTIALon 04-23-2022 BASOPHILS ABSOLUTE COUNT (10*3/UL) BY AUTOMATED COUNT 0.0 K/uL Normal 0.0-0.3 [facility] Comment on above: Performed By: #### L [id number] #### [place] [address] BASOPHILS RELATIVE PERCENT BY AUTOMATED COUNT 0.1 % Normal 0.0-2.0 [facility] Comment on above: Performed By: #### L [id number] #### [place] [address] Eosinophils (Bld) [#/Vol] 0.0 10*3/uL Normal 0.0-0.5 [facility] Comment on above: Performed By: #### L [id number] #### [place] [address] EOSINOPHILS RELATIVE PERCENT BY AUTOMATED COUNT 0.1 % Normal 0.0-5.0 [facility] Comment on above: Performed By: #### L [id number] #### [place] [id number] Erythrocyte distribution width (RBC) [Ratio] 11.8 % Normal <=15.0 [facility] Comment on above: Performed By: #### L [id number] #### [address] Hematocrit (Bld) [Volume fraction] 42.8 % Normal 34.0-49.0 [facility] Comment on above: Performed By: #### L [id number] #### [address] Hemoglobin (Bld) [Mass/Vol] 15.1 g/dL Normal 11.2-15.7 [facility] Comment on above: Performed By: #### L [id number] #### [place] [id number] Immature granulocytes (Bld) [#/Vol] 0.0 10*3/uL Normal 0.0-0.1 [facility] Comment on above: Performed By: #### L [id number] #### [place] [address] Immature granulocytes/100 WBC (Bld) 0.2 % Normal <1.0 [facility] Comment on above: Performed By: #### L [id number] #### [place] [address] LYMPHOCYTES ABSOLUTE COUNT (10*3/UL) BY AUTOMATED COUNT 0.5 K/uL Low 0.9-4.1 [facility] Comment on above: Performed By: #### L [id number] #### [place] [address] LYMPHOCYTES RELATIVE PERCENT BY AUTOMATED COUNT 4.5 % Low 14.0-51.0 [facility] Comment on above: Performed By: #### L [id number] #### [place] [address] MCH (RBC) [Entitic mass] 31.9 pg Normal 26.0-34.0 [facility] Comment on above: Performed By: #### L [id number] #### [place] [address] MCHC (RBC) [Mass/Vol] 35.3 g/dL Normal 30.7-35.5 [facility] Comment on above: Performed By: #### L [id number] #### [place] [address] MCV (RBC) [Entitic vol] 90.5 fL Normal 80.0-100.0 [facility] Comment on above: Performed By: #### L [id number] #### [place] [address] MEAN PLATELET VOLUME (FL) BY AUTOMATED COUNT 9.1 fL Normal 7.2-11.7 [facility] Comment on above: Performed By: #### L [id number] #### [place] [address] MONOCYTES ABSOLUTE COUNT (10*3/UL) BY AUTOMATED COUNT 0.4 K/uL Normal 0.2-1.0 [facility] Comment on above: Performed By: #### L [id number] #### [place] [address] MONOCYTES RELATIVE PERCENT BY AUTOMATED COUNT 3.6 % Low 4.0-12.0 [facility] Comment on above: Performed By: #### L [id number] #### [place] [address] NEUTROPHILS ABSOLUTE COUNT (10*3/UL) BY AUTOMATED COUNT 9.7 K/uL High 1.8-7.5 [facility] Comment on above: Performed By: #### L [id number] #### [place] [address] NEUTROPHILS RELATIVE PERCENT BY AUTOMATED COUNT 91.5 % High 42.0-80.0 [facility] Comment on above: Performed By: #### L [id number] #### [place] [address] PLATELETS (10*3/UL) BY AUTOMATED COUNT 291 K/uL Normal 140-400 [facility] Comment on above: Performed By: #### L [id number] #### [place] [address] RBC (Bld) [#/Vol] 4.73 10*6/uL Normal 3.95-5.26 [facility] Comment on above: Performed By: #### L [id number] #### [place] [address] WBC (Bld) [#/Vol] 10.6 10*3/uL Normal 3.5-10.9 [facility] Comment on above: Performed By: #### L [id number] #### [place] [address] Basophils (Bld) [#/Vol] 0.0 10*3/uL 0.0 - 0.3 K/uL [facility] Basophils/100 WBC (Bld) 0.1 % 0.0 - 2.0 % [facility] Eosinophils (Bld) [#/Vol] 0.0 10*3/uL 0.0 [...] [facility] RBC (Bld) [#/Vol] 4.73 10*6/uL [facility] WBC corrected for nucl RBC Auto (Bld) [#/Vol] 10.6 K/uL 3.5 - 10.9 K/uL [facility] HEPATIC FUNCTION PANELon Albumin [Mass/Vol] 4.4 g/dL Normal 3.5-5.2 [facility] Comment on above: Performed By: #### L [id number] ####[place] [phone] ALP [Catalytic activity/Vol] 55 U/L Normal 23-144 [facility] Comment on above: Performed By: #### L [id number] ####[place] [phone] ALT [Catalytic activity/Vol] 12 U/L Normal 0-60 [facility] Comment on above: Performed By: #### L [id number] ####[place] [phone] AST [Catalytic activity/Vol] 17 U/L Normal 0-46 [facility] Comment on above: Performed By: #### L [id number] ####[place] [phone] Bilirubin [Mass/Vol] 0.6 mg/dL Normal 0.0-1.2 [facility] Comment on above: Performed By: #### L [id number] ####[place] [phone] BILIRUBIN, DIRECT < Normal 0.0-0.4 [facility] Comment on above: Performed By: #### L [id number] ####[place] [phone] BILIRUBIN, INDIRECT Normal [facility] Comment on above: Result Comment: Unab le to calculate. Performed By: #### L [id number] ####[place] [phone] Protein [Mass/Vol] 7.3 g/dL Normal 6.0-8.3 [facility] Comment on above: Performed By: #### L [id number] ####[place] [phone] Albumin [Mass/Vol] 4.4 g/dL 3.5 - 5.2 g/dL [facility] ALP [Catalytic activity/Vol] 55 U/L 23 - 144 U/L [facility] ALT [Catalytic activity/Vol] 12 U/L 0 - 60 U/L [facility] AST [Catalytic activity/Vol] 17 U/L 0 - 46 U/L [facility] Bilirubin [Mass/Vol] 0.6 mg/dL 0.0 - 1.2 mg/dL [facility] Bilirubin.direct [Mass/Vol] mg/dL 0.0 - 0.4 mg/dL [facility] Bilirubin.indirect [Mass/Vol] [facility] Comment on above: Unable to calculate. Protein [Mass/Vol] 7.3 g/dL 6.0 - 8.3 g/dL Pr [facility] LIPASEon 04-23-2022 Lipase [Catalytic activity/Vol] 27 U/L Normal 0-60 [facility] Comment on above: Performed By: #### L [id number] ####[place] [phone] Interpretation and review of laboratory results [facility] [Catalytic activity/Vol] 27 U/L 0 - 60 U/L [facility] No Panel Informationon 04-23 [facility] Vital Signs Date Time Vital Sign Value Performing Clinician Raya graves 03-14-2025 10:07-0400 Body mass index (BMI) [Ratio] 29.29 kg/m2 Khadra Mancini APRN.CNM Work Phone: [facility] 03-14-2025 10:07-0400 Body weight 70.31 kg Khadra Mancini APRN.CNM Work Phone: [facility] 03-14-2025 10:07-0400 Diastolic blood pressure 82 mm[Hg] Khadra Mancini APRN.CNM Work Phone: [facility] 03-14-2025 10:07-0400 Systolic blood pressure 114 mm[Hg] Khadra Mancini APRN.CNM Work Phone: [facility] 03-13-2025 01:59-0400 Body height 157.48 cm No Primary Care Physician [facility] 03-13-2025 01:59-0400 Body mass index (BMI) [Ratio] 28.7 kg/m2 No Primary Care Physician [facility] 03-13-2025 01:59-0400 Body weight 71.21 kg No Primary Care Physician [facility] 03-13-2025 01:55-0400 Diastolic blood pressure 77 mm[Hg] No Primary Care Physician [facility] 03-13-2025 01:55-0400 Heart rate 83 /min No Primary Care Physician [facility] 03-13-2025 01:55-0400 Systolic blood pressure 108 mm[Hg] No Primary Care Physician [facility] 03-13-2025 01:54-0400 SaO2% (BldA) [Mass fraction] 97 % No Primary Care Physician [facility] 03-13-2025 01:49-0400 Body temperature 97.9 [degF] No Primary Care Physician [facility] 03-13-2025 01:49-0400 Respiratory rate 16 /min No Primary Care Physician [facility] 03-11-2025 10:33-0400 Body mass index (BMI) [Ratio] 29.48 kg/m2 Khadra Mancini APRN.CNM Work Phone: [facility] 03-11-2025 10:33-0400 Body weight 70.76 kg Khadra Mancini APRN.CNM Work Phone: [facility] 03-11-2025 10:33-0400 Diastolic blood pressure 62 mm[Hg] Khadra Mancini APRN.CNM Work Phone: [facility] 03-11-2025 10:33-0400 Systolic blood pressure 110 mm[Hg] Khadra Mancini APRN.CNM Work Phone: [facility] 03-07-2025 13:14-0400 Body mass index (BMI) [Ratio] 29.78 kg/m2 Annie Thakur APRN.CNM Work Phone: [facility] 03-07-2025 13:14-0400 Body weight 71.49 kg Annie Plotts FILM NUMBERER.CNM Work Phone: [facility] 03-07-2025 13:14-0400 Diastolic blood pressure 64 mm[Hg] Annie Plotts FILM NUMBERER.CNM Work Phone: [facility] 03-07-2025 13:14-0400 Systolic blood pressure 118 mm[Hg] Annie Plotts FILM NUMBERER.CNM Work Phone: [facility] 03-05-2025 09:02-0400 Body mass index (BMI) [Ratio] 29.4 kg/m2 Annie Plotts FILM NUMBERER.CNM Work Phone: [facility] 03-05-2025 09:02-0400 Body weight 70.58 kg Annie Plotts FILM NUMBERER.CNM Work Phone: [facility] 03-05-2025 09:02-0400 Diastolic blood pressure 64 mm[Hg] Annie Plotts FILM NUMBERER.CNM Work Phone: [facility] 03-05-2025 09:02-0400 Systolic blood pressure 110 mm[Hg] Annie Plotts FILM NUMBERER.CNM Work Phone: [facility] 02-25-2025 08:05-0400 Body mass index (BMI) [Ratio] 28.91 kg/m2 Khadra Mancini FILM NUMBERER.CNM Work Phone: [facility] 02-25-2025 08:05-0400 Body weight 69.4 kg Khadra Mancini FILM NUMBERER.CNM Work Phone: [facility] 02-25-2025 08:05-0400 Diastolic blood pressure 68 mm[Hg] Khadra Mancini FILM NUMBERER.CNM Work Phone: [facility] 02-25-2025 08:05-0400 Systolic blood pressure 108 mm[Hg] Khadra Mancini FILM NUMBERER.CNM Work Phone: [facility] 02-11-2025 08:47-0400 Body mass index (BMI) [Ratio] 28.15 kg/m2 Chinyere Lehman MD Work Phone: [facility] 02-11-2025 08:47-0400 Body weight 67.59 kg Chinyere Lehman MD Work Phone: [facility] 02-11-2025 08:47-0400 Diastolic blood pressure 62 mm[Hg] Chinyere Lehman MD Work Phone: [facility] 02-11-2025 08:47-0400 Systolic blood pressure 98 mm[Hg] Chinyere Lehman MD Work Phone: [facility] 01-28-2025 08:38-0400 Body mass index (BMI) [Ratio] 27.59 kg/m2 Arthur Conklin MD Work Phone: [facility] 01-28-2025 08:38-0400 Body weight 66.22 kg Arthur Conklin MD Work Phone: [facility] 01-28-2025 08:38-0400 Diastolic blood pressure 60 mm[Hg] Arthur Conklin MD Work Phone: [facility] 01-28-2025 08:38-0400 Systolic blood pressure 98 mm[Hg] Arthur Conklin MD Work Phone: [facility] 01-14-2025 08:04-0400 Body mass index (BMI) [Ratio] 27.21 kg/m2 Khadra Mancini APRN.CNM Work Phone: [facility] 01-14-2025 08:04-0400 Body weight 65.32 kg Khadra Mancini APRN.CNM Work Phone: [facility] 01-14-2025 08:04-0400 Diastolic blood pressure 70 mm[Hg] Khadra Mancini ARGENIS.CNM Work Phone: [facility] 01-14-2025 08:04-0400 Systolic blood pressure 116 mm[Hg] Khadra Live MORE.CNM Work Phone: [facility] 12-31-2024 08:07-0400 Body mass index (BMI) [Ratio] 26.83 kg/m2 Khadra Mancini FILM NUMBERER.CNM Work Phone: [facility] 12-31-2024 08:07-0400 Body weight 64.41 kg Khadra Mancini FILM NUMBERER.CNM Work Phone: [facility] 12-31-2024 08:07-0400 Diastolic blood pressure 62 mm[Hg] Khadra Mancini FILM NUMBERER.CNM Work Phone: [facility] 12-31-2024 08:07-0400 Systolic blood pressure 98 mm[Hg] Khadra Mancini FILM NUMBERER.CNM Work Phone: [facility] 12-17-2024 09:57-0400 Body mass index (BMI) [Ratio] 26.64 kg/m2 Khadra Mancini FILM NUMBERER.CNM Work Phone: [facility] 12-17-2024 09:57-0400 Body weight 63.96 kg Khadra Mancini FILM NUMBERER.CNM Work Phone: [facility] 12-17-2024 09:57-0400 Diastolic blood pressure 62 mm[Hg] Khadra Mancini FILM NUMBERER.CNM Work Phone: [facility] 12-17-2024 09:57-0400 Systolic blood pressure 100 mm[Hg] Khadra Mancini FILM NUMBERER.CNM Work Phone: [facility] 11-19-2024 11:23-0400 Body mass index (BMI) [Ratio] 26.07 kg/m2 Khadra Mancini FILM NUMBERER.CNM Work Phone: [facility] 11-19-2024 11:23-0400 Body weight 62.6 kg Khadra Mancini FILM NUMBERER.CNM Work Phone: [facility] 11-19-2024 11:23-0400 Diastolic blood pressure 62 mm[Hg] Khadra Mancini FILM NUMBERER.CNM Work Phone: [facility] 11-19-2024 11:23-0400 Systolic blood pressure 104 mm[Hg] Khadra Mancini FILM NUMBERER.CNM Work Phone: [facility] 10-23-2024 09:41-0400 Body mass index (BMI) [Ratio] 25.32 kg/m2 Annie Plotts FILM NUMBERER.CNM Work Phone: [facility] 10-23-2024 09:41-0400 Body weight 60.78 kg Annie Plotts FILM NUMBERER.CNM Work Phone: [facility] 10-23-2024 09:41-0400 Diastolic blood pressure 64 mm[Hg] Annie Plotts FILM NUMBERER.CNM Work Phone: [facility] 10-23-2024 09:41-0400 Systolic blood pressure 112 mm[Hg] Annie Plotts FILM NUMBERER.CNM Work Phone: [facility] 09-24-2024 09:35-0400 Body mass index (BMI) [Ratio] 24.75 kg/m2 Khadra Mancini FILM NUMBERER.CNM Work Phone: [facility] 09-24-2024 09:35-0400 Body weight 59.42 kg Khadra Mancini FILM NUMBERER.CNM Work Phone: [facility] 09-24-2024 09:35-0400 Diastolic blood pressure 66 mm[Hg] Khadra Mancini FILM NUMBERER.CNM Work Phone: [facility] 09-24-2024 09:35-0400 Systolic blood pressure 108 mm[Hg] Khadra Mancini FILM NUMBERER.CNM Work Phone: [facility] 08-28-2024 09:42-0500 Body mass index (BMI) [Ratio] 24.19 kg/m2 Annie Plotts FILM NUMBERER.CNM Work Phone: [facility] 08-28-2024 09:42-0500 Body weight 58.06 kg Annie Plotts FILM NUMBERER.CNM Work Phone: [facility] 08-28-2024 09:42-0500 Diastolic blood pressure 68 mm[Hg] Annie Plotts FILM NUMBERER.CNM Work Phone: [facility] 08-28-2024 09:42-0500 Systolic blood pressure 110 mm[Hg] Annie Thakur FILM NUMBERER.CNM Work Phone: [facility] 07-31-2024 08:40-0500 Body mass index (BMI) [Ratio] 23.51 kg/m2 Annie Thakur FILM NUMBERER.CNM Work Phone: [facility] 07-31-2024 08:40-0500 Body weight 56.43 kg Annie Thakur FILM NUMBERER.CNM Work Phone: [facility] 07-31-2024 08:40-0500 Diastolic blood pressure 60 mm[Hg] Annie Thakur FILM NUMBERER.CNM Work Phone: [facility] 07-31-2024 08:40-0500 Systolic blood pressure 122 mm[Hg] Annie Thakur FILM NUMBERER.CNM Work Phone: [facility] 04-23-2022 14:16-0400 Body height 157.5 cm Joslyn Panda MD Work Phone: [place] [facility] 04-23-2022 14:16-0400 Body mass index (BMI) [Ratio] 21.22 kg/m2 Joslyn Panda MD Work Phone: [facility] 04-23-2022 14:16-0400 Body temperature 98.6 [degF] Joslyn Panda MD Work Phone: [place] [facility] 04-23-2022 14:16-0400 Body weight 52.62 kg Joslyn Panda MD Work Phone: [place] [facility] 04-23-2022 14:16-0400 Diastolic blood pressure 82 mm[Hg] Joslyn Panda MD Work Phone: [facility] 04-23-2022 14:16-0400 Heart rate 117 /min Joslyn Panda MD Work Phone: [place] [facility] 04-23-2022 14:16-0400 Respiratory rate 18 /min Joslyn Panda MD Work Phone: [facility] 04-23-2022 14:16-0400 SaO2% (BldA) [Mass fraction] 97 % Joslyn Panda MD Work Phone: [facility] 04-23-2022 [id number] Systolic blood pressure 129 mm[Hg] Joslyn Panda MD Work Phone: [facility] Encounters Encounter Date Encounter Type Care Provider Facility Start: 03-14-2025 End: 03-14-2025 Patient encounter procedure Whi Tech 1 [employer] [facility] Maternal Medicine Comment on above: Post-term , 40-42 weeks of gestation (HCC) (Primary Dx); 40 weeks gestation of (HCC) Encounter for superv ision of other normal in third trimester (HCC) (Primary Dx); 40 weeks gestation of (HCC); Multiparity Start: 03-14-2025 End: 03-14-2025 ambulatory [facility] Facility:[facility] Start: 03-13-2025 End: 03-13-2025 ambulatory No Primary Care Physician -[facility] Start: 03-13-2025 End: 03-13-[address] Chinyere Enamorado MD -[facility] Work Phone: Start: 03-12-2025 End: 03-12-2025 Telephone encounter Chinyere Lehman MD Work Phone: OB/Gynecology Comment on above: OB Contractions Start: 03-11-2025 End: 03-11-2025 Patient encounter procedure Khadra Mancini APRN.CNM Work Phone: OB/Gynecology Comment on above: Encounter for superv ision of other normal in third trimester (HCC) (Primary Dx); 40 weeks gestation of (HCC); Multiparity Start: 03-11-2025 End: 03-11-2025 ambulatory [facility] Facility:[facility] Start: 03-07-2025 End: 03-07-2025 Telephone encounter Annie Thakur APRN.CNCandice Work Phone: OB/Gynecology Start: 03-07-2025 End: 03-07-2025 Patient encounter procedure Annie Plotts FILM NUMBERER.CNM Work Phone: OB/Gynecology Comment on above: 39 weeks gestation o f (HCC) (Primary Dx); Encounter for supervision of other normal in third trimester (HCC) Start: 03-07-2025 End: 03-07-2025 ambulatory ANNIE SHAISTA Facility:[facility] Start: 03-05-2025 End: 03-05-2025 Patient encounter procedure Annie Thakur FILM NUMBERER.CNM Work Phone: OB/Gynecology Comment on above: 39 weeks gestation o f (HCC) (Primary Dx); Encounter for supervision of other normal in third trimester (HCC) Start: 03-05-2025 End: 03-05-2025 ambulatory ANNIE THAKUR Facility:[facility] Start: 02-25-2025 End: 02-25-2025 Patient encounter procedure Khadra Mancini ARGENIS.CNM Work Phone: OB/Gynecology Comment on above: Encounter for superv ision of other normal in third trimester (HCC) (Primary Dx); 38 weeks gestation of (HCC) Population Health [facility] v[facility] Outreach (Ob/peds) Start: 02-25-2025 End: 02-25-2025 ambulatory Niru Casarez MA [facility] Start: 02-18-2025 End: 02-18-2025 ambulatory KHADRA MANCINI Facility:[facility] Start: 02-11-2025 End: 02-11-2025 Patient encounter procedure Chinyere Lehman MD Work Phone: OB/Gynecology Comment on above: Encounter for superv ision of other normal in third trimester (HCC) (Primary Dx); 36 weeks gestation of (HCC) Start: 02-11-2025 End: 02-11-2025 ambulatory CHINYERE LEHMAN Facility:[facility] Start: 01-28-2025 End: 01-29-2025 Telephone encounter Arthur Conklin MD Work Phone: OB/Gynecology Comment on above: Question (OB Questio n) Start: 01-28-2025 End: 01-28-2025 ambulatory ARTHUR CONKLIN Facility:[facility] Start: 01-28-2025 End: 01-28-2025 Patient encounter procedure Arthur Conklin MD Work Phone: OB/Gynecology Comment on above: Encounter for superv ision of other normal in third trimester (HCC) (Primary Dx); 34 weeks gestation of (HCC) Start: 01-14-2025 End: 01-14-2025 ambulatory KHADRA MANICNI Facility:[facility] Start: 01-14-2025 End: 01-14-2025 Patient encounter procedure Khadra Mancini APRN.CNM Work Phone: OB/Gynecology Comment on above: Encounter for superv ision of other normal in third trimester (HCC) (Primary Dx); 32 weeks gestation of (HCC) Start: 01-01-2025 End: 01-01-2025 Telephone encounter Nica Uriarte RN Maternal Medicine Comment on above: Therapeutic Recreation Leader - O ther (PRAF) Start: 12-31-2024 End: 12-31-2024 ambulatory KHADRA MANCINI Facility:[facility] Start: 12-31-2024 End: 12-31-2024 Patient encounter procedure Khadra Mancini APRN.CNM Work Phone: OB/Gynecology Comment on above: Encounter for superv ision of normal in multigravida (HCC) (Primary Dx); 30 weeks gestation of (HCC) Start: 12-17-2024 End: 02-16-2025 Follow-up encounter Khadra Mancini APRN.CNCandice Work Phone: OB/Gynecology Start: 12-17-2024 End: 12-17-2024 Patient encounter procedure Khadra Mancini APRN.CNM Work Phone: OB/Gynecology Comment on above: Encounter for superv ision of other normal in third trimester (HCC) (Primary Dx); 28 weeks gestation of (HCC) Start: 12-17-2024 End: 12-17-2024 ambulatory KHADRA MANCINI Facility:[facility] Start: 11-19-2024 End: 11-19-2024 Patient encounter procedure Khadra Mancini APRN.CNM Work Phone: OB/Gynecology Comment on above: Encounter for superv ision of other normal in second trimester ([facility]) (Primary Dx); 24 weeks gestation of ([facility]); Screening for diabetes mellitus Start: 11-19-2024 End: 11-19-2024 [facility] Facility:[facility] Start: 10-24-2024 End: 10-24-2024 Telephone encounter Nica Uriarte RN Maternal Medicine Comment on above: Therapeutic Recreation Leader - O ther (PRAF) Start: 10-23-2024 End: 10-23-2024 [facility] Start: 10-23-2024 End: 10-23-2024 Patient encounter procedure Annie Thakur FILM NUMBERER.MARCELA Work Phone: OB/Gynecology Comment on above: 20 weeks gestation o f ([facility]) (Primary Dx); Encounter for supervision of other normal in second trimester ([facility]); Encounter for supervision of normal in multigravida ([facility]) Start: 10-23-2024 End: 10-23-2024 [facility] Start: 10-23-2024 End: 10-23-2024 Patient encounter procedure Whi Tech 1 [employer] [facility] Maternal Medicine Comment on above: Encounter for anatomic survey (HCC) (Primary Dx); 20 weeks gestation of ([facility]) Start: 09-24-2024 End: 09-24-2024 [facility] Facility:[facility] Start: 09-24-2024 End: 09-24-2024 Patient encounter procedure Khadra Mancini APRNNORMA Work Phone: OB/Gynecology Comment on above: Encounter for superv ision of other normal in second trimester (Primary Dx); 16 weeks gestation of Start: 08-29-2024 End: 10-29-2024 Follow-up encounter Annie Thakur APRN.CNM Work Phone: OB/Gynecology Start: 08-28-2024 End: 08-28-2024 ambulatory ANNIE THAKUR Facility:[facility] Start: 08-28-2024 End: 08-28-2024 Patient encounter procedure Annie Thakur APRN.CNM Work Phone: OB/Gynecology Comment on above: 12 weeks gestation o f (Primary Dx); Encounter for supervision of other normal in second trimester; Multiparity Encounter for antena tony screening for malformation using ultrasound (Primary Dx); 12 weeks gestation of ; Encounter for (NT) nuchal translucency scan Start: 08-01-2024 End: 08-01-2024 Telephone encounter Nurse Timber Sprinkler Ej Lee Work Phone: Obstetrics/Gynecology Comment on above: PRAF Start: 07-31-2024 End: 07-31-2024 ambulatory ANNIE [facility] Facility:[facility] Start: 07-31-2024 End: 07-31-2024 Patient encounter procedure Annie Thakur FILM NUMBERER.HUM Work Phone: OB/Gynecology Comment on above: Encounter for superv ision of normal in multigravida (Primary Dx); 8 weeks gestation of ; Multiparity Start: 07-27-2024 End: 07-29-2024 Refill Ling Daly FILM NUMBERER-FINANCE CLERK Work Phone: [facility] Comment on above: Encounter for initia l prescription of vaginal ring hormonal contraceptive Start: 10-25-2023 End: 10-25-2023 ambulatory Ling Daly [facility] Start: 07-27-2023 End: 07-27-2023 [facility] Start: 01-16-2023 End: 01-16-2023 ambulatory MARYANN SOLIZ [facility] Start: 01-16-2023 Encounter for genera l adult medical examination without abnormal findings LING DALY [facility] Start: 11-17-2022 End: 11-19-2022 Evaluation and management of inpatient ELIJAH SAUCEDO [facility] Start: 11-09-2022 End: 11-09-2022 ambulatory MARYANN MATHIAS Provider Locations Start: 11-02-2022 End: 11-02-2022 ambulatory MAX LAU Provider Locations Start: 10-26-2022 End: 10-26-2022 ambulatory MARYANN MATHIAS Provider Locations Start: 10-12-2022 End: 10-12-2022 ambulatory HERNESTO PATHAK Provider Locations Start: 09-28-2022 End: 09-28-2022 ambulatory SAMANTHA A ANI Provider Locations Start: 09-12-2022 End: 09-12-2022 ambulatory MARYANN MATHIAS Provider Locations Start: 08-31-2022 End: 08-31-2022 ambulatory MARYANN MATHIAS Provider Locations Start: 08-02-2022 End: 08-02-2022 ambulatory MARYANN MATHIAS Provider Locations Start: 06-30-2022 End: 06-30-2022 ambulatory DOMONIQUE ONEILL Provider Locations Start: 06-30-2022 ambulatory ALBERTA NOEL [facility] Start: 05-25-2022 ambulatory MARYANN MATHIAS [facility] er Locations Start: 04-23-2022 End: 04-23-2022 Emergency department patient visit JOSLYN PANDA [facility] Start: 04-23-2022 End: 04-23-2022 Emergency department patient visit Joslyn Panda MD Work Phone: [facility] Start: 04-12-2022 End: 04-12-2022 ambulatory MARYANN MATHIAS Provider Locations Procedures Date Procedure Procedure Detail Performing Clinician Start: 03-14-2025 Us preg uterus after 1st trimest 07/17 gestation Khadra Mancini FILM NUMBERER.CNM Work Phone: Start: 03-14-2025 Urnls dip stick/tabl et rgnt non-auto w/o micrscp Khadra Mancini FILM NUMBERER.CNM Work Phone: Start: 03-11-2025 Urnls dip stick/tabl et rgnt non-auto w/o micrscp Khadra Mancini FILM NUMBERER.CNM Work Phone: Start: 03-07-2025 Urnls dip stick/tabl et rgnt non-auto w/o micrscp Annie Thakur FILM NUMBERER.CNM Work Phone: Start: 03-05-2025 Urnls dip stick/tabl et rgnt non-auto w/o micrscp Annie Thakur FILM NUMBERER.CNM Work Phone: Start: 02-25-2025 Urnls dip stick/tabl et rgnt non-auto w/o micrscp Khadra Live FILM NUMBERER.CNM Work Phone: Start: 02-11-2025 Urnls dip stick/tabl et rgnt non-auto w/o micrscp Chinyere Lehman MD Work Phone: Start: 10-23-2024 Us preg uterus after 1st trimest 1/1st gestation Annie Thakur FILM NUMBERER.CNM Work Phone: Start: 08-28-2024 Us preg uterus after 1st trimest 1/ gestation Annie Thakur FILM NUMBERER.CNM Work Phone: Start: 07-31-2024 Antibody screen KYRA THAKUR Comment on above: Order Comment: Speci men Type: BLOOD SPECIMEN Ordering Facility: [facility] Address: [address] [place] [address] Performed By: #### T SPN #### [facility] CLIA [id number] [address] [place] [address] [place] Start: 07-31-2024 Us uterus l imited 1/> fetuses Annie Thakur FILM NUMBERER.CNM Work Phone: Start: 05-24-[address] X Start: 04-23-2022 Basic metabolic 2000 panel - Serum or Plasma Joslyn aPnda MD Work Phone: Start: 04-23-2022 Bilirubin direct Jigneshyogi Panda MD Work Phone: Start: 04-23-2022 CBC W Auto Different ial panel - Blood Joslyn Panda MD Work Phone: Start: 04-23-2022 COMPLETE BLOOD COUNT WITH DIFFERENTIAL Joslyn Panda MD Work Phone: Plan of Treatment Date Care Activity Detail Author Start: 07-31-2029 Screening for malign ant neoplasm of cervix Cervical Cancer Screening [facility] Start: 07-31-2027 Screening for malign ant neoplasm of cervix Cervical Cancer Screening [facility] Start: 03-18-2025 End: 03-18-2025 Patient encounter procedure OB/Gynecology Comment on above: NST NST only Start: 03-17-2025 Influenza vaccination [facility] Start: 03-14-2025 End: 03-14-2025 Patient encounter procedure Maternal Medicine Comment on above: Growth Sweep Start: 03-13-2025 Nonstress test [facility] Start: 03-13-2025 Obstetric monitoring [facility] Start: 03-13-2025 Vital signs measurements [facility] Start: 03-13-2025 [facility] Start: 03-13-2025 Patient discharge [facility] Start: 03-11-2025 End: 03-11-2025 Patient encounter procedure 03/11/2025 10:30 AM EDT Routine Office Visit OB/Gynecology [address] [place] [address] Khadra Mancini APRN.CNM [address] [place] [address] OB OB/Gynecology Comment on above: OB Start: 03-07-2025 End: 03-07-2025 Patient encounter procedure 03/07/2025 1:15 PM EDT Routine Office Visit OB/Gynecology [address] [place] [address] Annie Thakur APRN.CNCandice [address] [place] [address] membrane sweep/OK per CP OB/Gynecology Comment on above: membrane sweep/OK pe r CP Start: 03-05-2025 End: 03-05-2025 Patient encounter procedure 03/05/2025 9:00 AM EDT Routine Office Visit OB/Gynecology [address] [place] [address] Annie Thakur APRN.CNM [address] [place] [address] OB OB/Gynecology Comment on above: OB Start: 02-25-2025 End: 02-25-2025 Patient encounter procedure 02/25/2025 8:00 AM EDT Routine Office Visit OB/Gynecology [address] [place] [address] Khadra Mancini APRN.CNM [address] [place] [address] OB OB/Gynecology Comment on above: OB Start: 02-18-2025 End: 02-18-2025 Patient encounter procedure 02/18/2025 10:30 AM EDT Routine Office Visit OB/Gynecology [address] [place] [address] Khadra Mancini APRN.CNM [address] [place] [address] (Fax) OB OB/Gynecology Comment on above: OB Start: 02-11-2025 End: 02-11-2025 Patient encounter procedure 02/11/2025 8:40 AM EDT Routine Office Visit OB/Gynecology [address] [place] [address] Chinyere Friend MD [address] [place] [address] OB OB/Gynecology Comment on above: OB Start: 01-28-2025 End: 01-28-2025 Patient encounter procedure 01/28/2025 8:30 AM EDT Routine Office Visit OB/Gynecology [address] [place] [address] Arthur Conklin MD [address] [place] [address] (Fax) OB OB/Gynecology Comment on above: OB Start: 01-14-2025 End: 01-14-2025 Patient encounter procedure 01/14/2025 8:00 AM EDT Routine Office Visit OB/Gynecology [address] [place] [address] Khadra Mancini APRN.CNM [address] [place] [address] OB OB/Gynecology Comment on above: OB Start: 12-31-2024 End: 12-31-2024 Patient encounter procedure 12/31/2024 8:00 AM EDT Routine Office Visit OB/Gynecology [address] [place] [address] Khadra Mancini APRN.CNM [address] [place] [address] OB OB/Gynecology Comment on above: OB Start: 12-17-2024 End: 12-17-2024 Patient encounter procedure 12/17/2024 10:00 AM EDT Routine Office Visit OB/Gynecology [address] [place] [address] Khadra Mancini APRN.CNM [address] [place] [address] OB OB/Gynecology Comment on above: OB Start: 12-17-2024 End: 12-17-2024 ambulatory 12/17/2024 9:45 AM EDT Results Only [place] [facility] [address] [place] [address] Glucose Test [facility] Comment on above: Glucose Test Start: 11-19-2024 End: 02-18-2025 ANEMIA REFLEX PANEL ANEMIA REFLEX PANEL Lab Routine Screening for diabetes mellitus Expected: 11/19/2024, Expires: 02/18/2025 [facility] Comment on above: Expected: 11/19/2024 , Expires: 02/18/2025 Start: 11-19-2024 End: 11-19-2025 GESTATIONAL GLUCOSE SCREEN, 1-HOUR, 50 GRAM, NON-FASTING GESTATIONAL GLUCOSE SCREEN, 1-HOUR, 50 GRAM, NON-FASTING Lab Routine Screening for diabetes mellitus Expected: 11/19/2024, Expires: 11/19/2025 [facility] Work Phone: Comment on above: Expected: 11/19/2024 , Expires: 11/19/2025 Start: 11-19-2024 End: 11-19-2025 SYPHILIS TREPONEMAL W/REFLEX SYPHILIS TREPONEMAL W/REFLEX Lab Routine Screening for diabetes mellitus Expected: 11/19/2024, Expires: 11/19/2025 [facility] Comment on above: Expected: 11/19/2024 , Expires: 11/19/2025 Start: 11-19-2024 End: 11-19-2024 Patient encounter procedure 11/19/2024 11:15 AM EDT Routine Office Visit OB/Gynecology [address] [place] [address] Khadra Mancini APRN.CNM [address] [place] [address] OB OB/Gynecology Comment on above: OB Start: 10-23-2024 End: 10-23-2024 Patient encounter procedure 10/23/2024 9:45 AM EDT Routine Office Visit OB/Gynecology [address] [place] [address] Annie Thakur APRN.CN [address] [place] [address] Anatomy/OB OB/Gynecology Comment on above: Anatomy/OB Start: 10-23-2024 End: 10-23-2024 Patient encounter procedure 10/23/2024 8:30 AM EDT Routine Office Visit Maternal Medicine [address] [place] [address] Anatomy/OB Maternal Medicine Comment on above: Anatomy/OB Start: 09-24-2024 End: 09-24-2024 Patient encounter procedure 09/24/2024 9:45 AM EDT Routine Office Visit OB/Gynecology [address] [place] [address] Khadra Mancini APRN.[facility] [address] [place] [address] OB Routine OB/Gynecology Comment on above: OB Routine Start: 08-28-2024 End: 08-28-2024 Patient encounter procedure Maternal Medicine Comment on above: Nuchal Start: 07-31-2024 End: 10-30-2024 ANEMIA REFLEX PANEL [facility] Work Phone: Comment on above: Expected: 07/31/2024 , Expires: 10/30/2024 Start: 07-31-2024 End: 10-30-2024 Hemoglobin A1c in Blood [facility] Comment on above: Expected: 07/31/2024 , Expires: 10/30/2024 Start: 07-31-2024 End: 10-30-2024 Hepatitis B virus surface Ag [Presence] in Serum [facility] Comment on above: Expected: 07/31/2024 , Expires: 10/30/2024 Start: 07-31-2024 End: 10-30-2024 Hepatitis C virus Ab [Presence] in Serum [facility] Comment on above: Expected: 07/31/2024 , Expires: 10/30/2024 Start: 07-31-2024 End: 10-30-2024 HIV 1+2 Ab [Presence] in Serum or Plasma by Immunoassay [facility] Comment on above: Expected: 07/31/2024 , Expires: 10/30/2024 Start: 07-31-2024 End: 07-31-2025 OBSTETRIC ULTRASOUND WHI OBSTETRIC ULTRASOUND WHI Anc Imaging Routine Encounter for supervision of normal in multigravida 8 weeks gestation of Expected: 07/31/2024, Expires: 07/31/2025 [facility] Comment on above: Expected: 07/31/2024 , Expires: 07/31/2025 Start: 07-31-2024 End: 10-30-2024 RUBELLA IGG ANTIBODY [facility] Comment on above: Expected: 07/31/2024 , Expires: 10/30/2024 Start: 07-31-2024 End: 10-30-2024 SYPHILIS TREPONEMAL W/REFLEX [facility] Comment on above: Expected: 07/31/2024 , Expires: 10/30/2024 Start: 07-31-2024 End: 10-30-2024 TYPE + SCREEN [facility] Comment on above: Expected: 07/31/2024 , Expires: 10/30/2024 Start: 05-19-2024 Screening for malign ant neoplasm of cervix Cervical Cancer Screening [facility] Start: 03-17-2024 Covid-19 Vaccine () Covid-19 Vaccine () [facility] Start: 03-17-2024 Influenza vaccination Influenza Vacc ine (#1) [facility] Start: 01-18-2024 Wellness Exam Wellness Exam [facility] Start: 04-27-2022 End: 04-27-2022 ambulatory 04/27/2022 OB Initial Visit hydro electric station operator Max Lau, FILM NUMBERER 1 [facility] [address] [place] [address] [facility] Start: 02-14-2022 Refusal of treatment by patient INFLUENZA VACCINE [facility] Start: 2021 HPV Vaccine (1 - 3-d ose SCDM series) HPV Vaccine (1 - 3-dose SCDM series) [facility] Start: 11-26-2019 COTEST / HPV COTEST / HPV [facility] Start: 11-26-2015 CERVICAL CANCER SCREENING CERVICAL CANCER SCREENING [facility] Start: 11-26-2015 Microscopic observat ion [Identifier] in Cervix by Cyto stain PAP SMEAR [facility] Start: 11-26-2015 Screening for malign ant neoplasm of cervix Cervical Cancer Screening [facility] Start: 2013 DTaP/Tdap/Td VACCINE S (1 - Tdap) DTaP/Tdap/Td VACCINES (1 - Tdap) [facility] Start: 2013 Hepatitis B Vaccine (1 of 3 - 19+ 3-dose series) Hepatitis B Vaccine (1 of 3 - 19+ 3-dose series) [facility] Start: 2013 Third diphtheria, tetanus and acellular pertussis (DTaP) vaccination DTaP,Tdap,and Td Vaccine (1 - Tdap) [facility] Start: 2013 Urine microalbumin profile DTaP,Tdap,Td Vaccine (1 - Tdap) [facility] Start: 2012 Anxiety Screening Anxiety Screening [facility] Start: 2012 Depression Screening Depression Scre ening [facility] Start: 2012 HEPATITIS C SCREENING HEPATITIS C SC REEEFE [facility] Start: 2009 HIV SCREENING HIV SCREENING [facility] Start: 1997 ANNUAL PREVENTIVE PHYSICAL (INCLUDES MAAP) ANNUAL PREVENTIVE PHYSICAL (INCLUDES MAAP) [facility] Start: 05-28-1995 COVID-19 VACCINE (#1) COVID-19 VACCI NE (#1) [facility] Start: 1994 HEPATITIS B VACCINES (1 of 3 - 3-dose series) HEPATITIS B VACCINES (1 of 3 - 3-dose series) [facility] Bacteria identified in Urine by Culture BACTERIAL CULTURE, URINE Microbiology Routine Encounter for supervision of normal in multigravida 8 weeks gestation of 07/31/2024 9:53 AM [facility] Chlamydia trachomatis+Neisseria gonorrhoeae DNA [Presence] in Unspecified specimen by MICHAEL with probe detection GONORRHEA/CHLAMYDIA NAAT Lab Routine Encounter for supervision of normal in multigravida 8 weeks gestation of 07/31/2024 9:53 AM [facility] nonstress test NON-S TRESS TEST Procedures Routine Encounter for supervision of other normal in third trimester (HCC) 40 weeks gestation of (HCC) Ordered: 03/11/2025 [facility] Comment on above: Ordered: 03/11/2025 HIGH RISK HUMAN PAPILLOMA VIRUS (HPV), PCR FOR DETECTION AND GENOTYPING HIGH RISK HUMAN PAPILLOMA VIRUS (HPV), PCR FOR DETECTION AND GENOTYPING Lab Routine Encounter for supervision of normal in multigravida 8 weeks gestation of 07/31/2024 9:53 AM [facility] End: 02-23-2026 OBSTETRIC ULTRASOUND WHI OBSTETRIC ULTRASOUND WHI Anc Imaging Routine Encounter for supervision of other normal in third trimester (HCC) 40 weeks gestation of (HCC) Once per month for 3 Occurrences starting 03/11/2025 until 02/23/2026 [facility] Work Phone: Comment on above: Once per month for 3 Occurrences starting 03/11/2025 until 02/23/2026 PAP TEST PAP TEST Lab Emerson suad Encounter for supervision of normal in multigravida 8 weeks gestation of 07/31/2024 9:53 AM EST [facility] Patient Education Kick Counts ED False Labor OB Triage: Return to Hospital or Notify Physician if you Experience: [facility] Work Phone: ROUTINE, GR OUP B STREPTOCOCCUS BY PCR ROUTINE, GROUP B STREPTOCOCCUS BY PCR Microbiology Routine Encounter for supervision of other normal in third trimester (HCC) 02/11/2025 9:00 AM EDT [facility] Work Phone: URINE OB DIP B/O URINE OB DIP B/ O Lab Routine 34 weeks gestation of (HCC) Encounter for supervision of other normal in third trimester (HCC) Ordered: 01/28/2025 [facility] Work Phone: Comment on above: Ordered: 01/28/2025 Immunizations Immunization Date Immunization Notes Care Provider Musa chamorro 05-21-2018 influenza virus vacc ine, unspecified formulation Ling Daly FILM NUMBERER-FINANCE CLERK Work Phone: [facility] Payers Date Payer Category Payer Self-pay 2022 Managed Care (Private) [facility] That{img}[facility] [id number] 2022 Medicaid [id number] 2022 Unknown [id number] 2022 Unknown [id number] 2020 Private Health Insurance [id number] 2014 Unknown [id number] 1994 Unknown [id number] [id number]. 201 1994 Unknown [id number] 2.16840.1.904029.3.579.2. 201 1994 Unknown [id number] 2.16840.1.169727.3.579.2. 201 Private Health Insurance [facility] PL[facility] [id number] Effective for all dates [address] [address] [place] [address] EPO [id number] Unknown [id number] 2.16840.1.416984.3.579.2. 246 Unknown [id number] 2.16840.1.421055.3.579.2. 246 Unknown [id number] 2.16840.1.885921.3.579.2. 246 Unknown [id number] 2.16840.1.450977.3.579.2. 246 Unknown [id number] 2.16840.1.805865.3.579.2. 246 Unknown [id number] 2.16840.1.884098.3.579.2. 246 Unknown [id number] 2.16840.1.360990.3.579.2. 246 Unknown [id number] 2.16840.1.353617.3.579.2. 246 Unknown [id number] 2.16840.1.687246.3.579.2. 246 Unknown [id number] 2.16.840.1.966565.3.579.2. 246 Unknown [id number] 2.16.840.1.019265.3.579.2. 246 Unknown [id number] 2.16.840.1.525506.3.579.2. 246 Unknown [id number] 2.16.840.1.123489.3.579.2. 246 Unknown [id number] 2.16.840.1.427351.3.579.2. 246 Unknown [id number] Unknown [id number] Unknown [id number] Unknown [id number] Unknown [id number] [id number]. 462 Social History Date Type Detail Facility Start: 02-02-2011 End: 04-12-2022 Tobacco smoking status NHIS Never smoked tobacco [facility] Start: 02-02-2011 End: 04-12-2022 Tobacco use and exposure Smokeless tobacco non-user [facility] Start: 04-23-2022 End: 03-07-2025 Alcohol intake Ex-drinker (finding) [facility] Start: 1995 Sex Assigned At Not on file P [facility] Start: 04-13-2022 End: 04-23-2022 Exposure to SARS-CoV-2 (event) Not sure [facility] Start: 10-25-2023 Alcoholic beverage intake Curr ent non-drinker of alcohol (finding) [facility] Start: 10-25-2023 End: 07-31-2024 History of Social function [facility] Start: 10-25-2023 End: 07-31-2024 Tobacco use panel [facility] The thought of jt archer myself has occurred to me Never [facility] Start: 06-17-2012 National Score (1-10 0), lower number is lower risk 60 [facility] Start: 06-15-2024 [facility] Start: 1995 Sex assigned at Female C [facility] Start: 07-30-2024 Gender identity Identifies as female gender (finding) [facility] Start: 07-30-2024 Sexual orientation Heterosexual (evelyne cade) [facility] Goals Date Patient Goal Desired Activity /State Personal health goal Comment on above: Formatting of this n ote might be different from the original. Pt to follow up with a pap smear in 2 mo Personal health goal Functional Status Date Assessment Result Facility 05-18-2021 Are you deaf, or do you have serious difficulty hearing No 05/18/2021 9:50 AM Alana Andrews CMA No [facility] Work Phone: 11-02-2021 Are you blind, or do you have serious difficulty seeing, even when wearing glasses No 05/18/2021 9:50 AM EDT Alana Murphy CMA [facility] 05-18-2021 Do you have serious difficulty walking or climbing stairs No 05/18/2021 9:50 AM EDT Alana Murphy CMA [facility] 05-18-2021 Do you have difficul ty dressing or bathing No 05/18/2021 9:50 AM EDT Alana Murphy CMA [facility] 05-18-2021 Because of a physica l, mental, or emotional condition, do you have difficulty doing errands alone such as visiting a physician's office or shopping No 05/18/2021 9:50 AM EDT Alana Murphy CMA [facility] Mental Status Date Assessment Result Facility 05-18-2021 Because of a physica l, mental, or emotional condition, do you have serious difficulty concentrating, remembering, or making decisions No 05/18/2021 9:50 AM EDT Alana Murphy CMA [facility] Clinical Notes 04-23-2022 to 03-14-2025 Quick Notes - Khadra Mancini APRN.CNM - 03/14/2025 1:40 PM EDTCKhadra salinas APRN.CNM - 03/14/2025 1:40 PM EDTPrenatal Quick Notes - Khadra Mancini APRN.CNM - 03/14/2025 1:40 PM EDT Note Date & Type Note Facility 03-14-2025 Note HNO ID: [id number] Author: KHADRA MANCINI APRN.CNM Service: ? Author Type: It Field Technician Type: Progress Notes Filed: 03/14/2025 13:43 Note Text: NST SUMMARY PROVIDER ASSESSMENT AND INTERPRETATION Yanet Banks is a 29 year old female, , who is at 40w6d with an KIA of 03/08/2025, by Last Menstrual Period dating method. Indications for NST: Postdates/Postterm Baseline: 135 Variability: Moderate Accelerations: Present 15 X 15 Decelerations: None Contractions: TOCO: None Interpretation: Reactive SIGNATURE: Khadra Mancini APRN.CNM [facility] 03-14-2025 Progress note Formatting of t his [...] discussed with the Patient or Patient's Authorized Tape Folding Machine Operator. As applicable, any other physician, advance practice provider, medical student, or other health professional student that will be observing or involved in the sensitive examination for educational or training purposes was discussed with the Patient or Authorized Tape Folding Machine Operator. The Patient or Authorized Tape Folding Machine Operator has agreed to proceed with the sensitive examination. ASSESSMENT/PLAN: 1. Encounter for supervision of other normal in third trimester -IOL on 03/21 at 0700 with MAGDIEL Stinson to manage 2. 40 weeks gestation of 3. Multiparity PTL precautions reviewed and when to call Khadra Mancini APRN.CNM [facility] 03-14-2025 History of Presen t illness Narrative [...] Khadra Mancini APRN.CNM documented in this encounter [facility] 03-14-2025 Miscellaneous Notes Formattin g of this [...] discussed with the Patient or Patient's Authorized Tape Folding Machine Operator. As applicable, any other physician, advance practice provider, medical student, or other health professional student that will be observing or involved in the sensitive examination for educational or training purposes was discussed with the Patient or Authorized Tape Folding Machine Operator. The Patient or Authorized Tape Folding Machine Operator has agreed to proceed with the sensitive examination. ASSESSMENT/PLAN: 1. Encounter for supervision of other normal in third trimester -IOL on 03/21 at 0700 with MAGDIEL Stinson to manage 2. 40 weeks gestation of 3. Multiparity PTL precautions reviewed and when to call Khadra Mancini APRN.CNM documented in this encounter [facility] 03-14-2025 Note Indication Evaluation of growth, Evaluation [...] The placenta is anterior, fundal. - BPP 6/8. - No malformations visualized on a limited survey as detailed below. Recommendations - Per brush cleaner, NST was performed and was reactive - [...] 5 oz EFW by: Hadlock (HC-AC-FL) Extended Item Repair Manager 7.1 mm Extremities / Bony Struc FL [...] By: Jayden Smith M.D. MATER[facility]ICINE 03-14-2025 Instructions Phil Dutta LPN - 03/14/2025 10:01 AM EDT SEQUENTIAL SCREENINGS The [facility] offers sequential screenings for women who are [...] It will require an appointment with our medical service technician. This is not an ultrasound [...] the above symptoms, contact our office at [phone] and ask to speak with a nurse. After hours, you can call doctors registry at [phone] OR call [facility] at [phone] and ask to have the doctor clinical documentation specialist paged. If you consider this an emergency, dial 03-17- or go to your nearest emergency department. NEED HELP? Are you dealing with a violent or abusive relationship? Are you a victim of rape or sexual assult? Call [facility] ([facility] 24 hour Crisis Hotline: 364.249.1045 or 046-109-3519. MANUAL Your Guide to a Healthy manual is now on-line. Visit [email or web address] to download your free copy documented in this encounter [facility] 03-13-2025 History and physi jaxson note [facility] 03-12-2025 Telephone encounter Note 40w4d [...] aware that MAGDIEL and CP are not clinical documentation specialist today. L&D notified. Updated H&P faxed to L&d. Patient lives minutes away from the hospital. Nica Law, RN [facility] 03-12-2025 Miscellaneous Notes 40w4d Patient called to [...] aware that MAGDIEL and CP are not clinical documentation specialist today. L&D notified. Updated H&P faxed to L&d. Patient lives minutes away from the hospital. Nica Law, ANNIE documented in this encounter [facility] 03-11-2025 Progress note Formatting of t his [...] discussed with the Patient or Patient's Authorized Tape Folding Machine Operator. As applicable, any other physician, advance practice provider, medical student, or other health professional student that will be observing or involved in the sensitive examination for educational or training purposes was discussed with the Patient or Authorized Tape Folding Machine Operator. The Patient or Authorized Tape Folding Machine Operator has agreed to proceed with the sensitive [...] RTO in 3 days Khadra Mancini APRN.CNM [facility] 03-11-2025 Miscellaneous Notes MAGDIEL-S: Yanet Banks is [...] discussed with the Patient or Patient's Authorized Tape Folding Machine Operator. As applicable, any other physician, advance practice provider, medical student, or other health professional student that will be observing or involved in the sensitive examination for educational or training purposes was discussed with the Patient or Authorized Tape Folding Machine Operator. The Patient or Authorized Tape Folding Machine Operator has agreed to proceed with the sensitive [...] Khadra Mancini APRN.CNM documented in this encounter [facility] 03-11-2025 Instructions Carli Youngblood MA - 03/11/2025 10:28 AM EDT SEQUENTIAL SCREENINGS The [facility] offers sequential screenings for women who are [...] It will require an appointment with our medical service technician. This is not an ultrasound [...] the above symptoms, contact our office at [phone] and ask to speak with a nurse. After hours, you can call [facility] at [phone] OR call [facility] at [phone] and ask to have the doctor clinical documentation specialist paged. If you consider this an emergency, dial 9--2 or go to your nearest emergency department. NEED HELP? Are you dealing with a violent or abusive relationship? Are you a victim of rape or sexual assult? Call [facility] ([place]) 24 hour Crisis Hotline: 352.382.5187 or 604-664-0682. MANUAL Your Guide to a Healthy manual is now on-line. Visit [email or web address] [email or web address] to download your free copy documented in this encounter [facility] 03-07-2025 Telephone encounter Note Faxed signed water consent to [facility] 03/07/2025. Erasto Brunson LPN [facility] 03-07-2025 Miscellaneous Notes Faxed signed water consent to [facility] 03/07/2025. Erasto Brunson LPN documented in this encounter [facility] 03-07-2025 Progress note Formatting of t his [...] or sooner if needed Annie Thakur APRN.CNM [facility] 03-07-2025 Miscellaneous Notes S: Yanet Banks is [...] Annie Thakur APRN.CNM documented in this encounter [facility] 03-07-2025 Instructions Erasto Brunson LPN - 03/07/2025 1:09 PM EDT SEQUENTIAL SCREENINGS The [facility] offers sequential screenings for women who are [...] It will require an appointment with our medical service technician. This is not an ultrasound [...] the above symptoms, contact our office at [phone] and ask to speak with a nurse. After hours, you can call doctors registry at [phone] OR call [facility] at [phone] and ask to have the doctor clinical documentation specialist paged. If you consider this an emergency, dial 9--5 or go to your nearest emergency department. NEED HELP? Are you dealing with a violent or abusive relationship? Are you a victim of rape or sexual assult? Call [facility] ([place]) 24 hour Crisis Hotline: 919.133.7349 or 434-243-2559. MANUAL Your Guide to a Healthy manual is now on-line. Visit [email or web address] [email or web address] to download your free copy documented in this encounter [facility] 03-05-2025 Progress note Formatting of t his [...] of other normal in third trimester ([facility]) - ICD9: V22.1, - R/B of membrane sweep discussed and questions answered - Desires water - needs to sign consent - Plan is to return to office on Monday for CE with membrane sweep - Labor precautions reviewed and when to call Annie Thakur APRN.CNM [facility] 03-05-2025 Miscellaneous Notes S: Yanet Banks is [...] ASSESSMENT/PLAN: 1. 39 weeks gestation of ([facility]) - ICD9: V22.2, ICD10: Z3A.39 (primary diagnosis) 2. Encounter for supervision of other normal in third trimester ([facility]) - ICD9: V22.1, - R/B of membrane sweep discussed and questions answered - Desires water - needs to sign consent - Plan is to return to office on Monday for CE with membrane sweep - Labor precautions reviewed and when to call Annie Thakur APRN.CNM documented in this encounter [facility] 03-05-2025 Instructions Erasto Brunson LPN - 03/05/2025 8:38 AM EDT SEQUENTIAL SCREENINGS The [facility] offers sequential screenings for women who are [...] It will require an appointment with our medical service technician. This is not an ultrasound [...] the above symptoms, contact our office at [phone] and ask to speak with a nurse. After hours, you can call doctors registry at [phone] OR call [facility] at [phone] and ask to have the doctor clinical documentation specialist paged. If you consider this an emergency, dial 9-1-1 or go to your nearest emergency department. NEED HELP? Are you dealing with a violent or abusive relationship? Are you a victim of rape or sexual assult? Call [facility] ([place]) 24 hour Crisis Hotline: 239.384.5045 or 845-118-6695. MANUAL Your Guide to a Healthy manual is now on-line. Visit [email or web address] [email or web address] to download your free copy documented in this encounter [facility] 02-25-2025 Note HNO ID: [id number] Author: NIRU CASAREZ MA Service: ? Author Type: Outer Diameter Grinder Tool Type: Progress Notes Filed: 02/25/2025 14:13 Note Text: POPULATION HEALTH NAVIGATION OUTREACH Action/FYI Mental Health Technician updated per documentation. Reason for Outreach Medicaid OB/Peds Care Gaps due: N/A Patient Contacted: Unable or unnecessary to reach patient: ed manager added Navigation Signature: Niru Birch MA February 25, 2025 12:14 PM [facility] 02-25-2025 History of Presen t illness Narrative POPULATION HEALTH NAVIGATION OUTREACH Action/FYI Mental Health Technician updated per documentation. Reason for Outreach Medicaid OB/Peds Care Gaps due: N/A Patient Contacted: Unable or unnecessary to reach patient: [place] ed manager added Navigation Signature: Niru Birch MA February 25, 2025 12:14 PM documented in this encounter [facility] 02-25-2025 Progress note Formatting of t his note is different from the original. MAGDIEL-S: Yanetkaleigh Banks is a 29 year old female [...] RTO in 1 weeks Khadra Mancini APRN.CNM [facility] 02-25-2025 Miscellaneous Notes MAGDIEL-S: Yanet Banks is [...] Khadra Mancini APRN.CNM documented in this encounter [facility] 02-25-2025 Instructions Carli Youngblood MA - 02/25/2025 8:00 AM EDT SEQUENTIAL SCREENINGS The [facility] offers sequential screenings for women who are [...] It will require an appointment with our medical service technician. This is not an ultrasound [...] the above symptoms, contact our office at [phone] and ask to speak with a nurse. After hours, you can call doctors registry at [phone] OR call [facility] at [phone] and ask to have the doctor clinical documentation specialist paged. If you consider this an emergency, dial 7-7-6 or go to your nearest emergency department. NEED HELP? Are you dealing with a violent or abusive relationship? Are you a victim of rape or sexual assult? Call [facility] ([facility] 24 hour Crisis Hotline: 624.868.5804 or 656-369-1075. MANUAL Your Guide to a Healthy manual is now on-line. Visit [email or web address] [email or web address] to download your free copy documented in this encounter [facility] 02-25-2025 Note Patient Outreach (HOME TNAV) YANET BANKS ([id number]) 1995 F Date Time Provider Department 02/25/25 NIRU CASAREZ During your visit today, we recorded the following information about you: Niru Casarez MA 02/25/2025 2:13 PM Signed POPULATION HEALTH NAVIGATION OUTREACH Action/FYI Mental Health Technician updated per documentation. Reason for Outreach Medicaid OB/Peds Care Gaps due: N/A Patient Contacted: Unable or unnecessary to reach patient: [place] ed manager added Navigation Signature: Niru Birch MA [...] Encounter Status:Closed by NIRU CASAREZ on 02/25/25 [facility] 02-11-2025 Progress note Formatting of t [...] was discussed with the patient or authorized financial sales representative. The patient or authorized financial sales representative has agreed to proceed with the sensitive examination. @ 36.3 weeks Assessment & Plan Encounter for supervision of other normal in third trimester (HCC) Orders: URINE OB DIP B/O ROUTINE, GROUP B STREPTOCOCCUS BY PCR 36 weeks gestation of (HCC) GBS today Kick counts and labor reviewed RTO weekly Vertex confirmed on bedside US Orders: URINE OB DIP B/O Chinyere Enamorado MD [facility] Work Phone: 02-11-2025 Miscellaneous Notes DM-Pt doing well. Denies vaginal Bleeding, Leaking fluid, or regular Contractions. Pt reports good movement Physical Exam: Gen: female in no apparent distress Abd: soft, Gravid. Non tender to palpation. See flow sheet Participation of a fellow, resident, medical student, or advanced practice provider student in performing the sensitive examination was discussed with the patient or authorized financial sales representative. The patient or authorized financial sales representative has agreed to proceed with the [...] Chinyere Enamorado MD documented in this encounter [facility] 02-11-2025 Instructions Melida Le MA - 02/11/2025 8:40 AM EDT SEQUENTIAL SCREENINGS The [facility] offers sequential screenings for women who are [...] It will require an appointment with our medical service technician. This is not an ultrasound [...] the above symptoms, contact our office at [phone] and ask to speak with a nurse. After hours, you can call doctors registry at [phone] OR call [facility] at [phone] and ask to have the doctor clinical documentation specialist paged. If you consider this an emergency, dial 91-8 or go to your nearest emergency department. NEED HELP? Are you dealing with a violent or abusive relationship? Are you a victim of rape or sexual assult? Call [facility] ([place]) 24 hour Crisis Hotline: 431.592.8673 or 909-426-6914. MANUAL Your Guide to a Healthy manual is now on-line. Visit [email or web address] [email or web address] to download your free copy documented in this encounter [facility] [facility] 01-29-2025 Telephone encounter Note Patient notified and voiced understanding. Lolis Anders RN [facility] 01-29-2025 Miscellaneous Notes Patient notified and voiced [...] 7-8. Said it felt much different than Uledi Barnett. The pain returned again today after [...] Nica Law RN documented in this encounter [facility] 01-28-2025 Telephone encounter Note Agree call if pain is severe, persistent or associated with other symptoms such as bleeding, LOF. For pain in advise warm baths or showers, rest, and Tylenol PRN. If pain does not improve with that can call [facility] Work Phone: 01-28-2025 Telephone encounter Note 34w3d Patient seen in office today and forgot to mention some pain she had on Monday after she was seen by the Chiropractor. Several hours after she had a side line adjustment on Monday she had a sharp pain in her cervix. Pain rate of 7-8. Said it felt much different than Uledi Barnett. The pain returned again today after [...] out of the office. Nica Law RN [facility] 01-28-2025 Progress note Formatting of t his note might be different from the original. SW- Pt doing well. No regular ctx. No vb, lof. Good FM PE: Gen- NAD, well appearing Abd- Soft, gravid, NT See flowsheet A/p 34 wk gestation - Discussed eating dates in - Discussed upcoming expectations - RTO 2 wks Arthur Conklin DO [facility] 01-28-2025 Miscellaneous Notes SW- Pt doing well. No regular ctx. No vb, lof. Good FM PE: Gen- NAD, well appearing Abd- Soft, gravid, NT See flowsheet A/p 34 wk gestation - Discussed eating dates in - Discussed upcoming expectations - RTO 2 wks Arthur Conklin DO documented in this encounter [facility] 01-28-2025 Instructions Niru Lazo MA - 01/28/2025 8:38 AM EDT SEQUENTIAL SCREENINGS The [facility] offers sequential screenings for women who are [...] It will require an appointment with our medical service technician. This is not an ultrasound [...] the above symptoms, contact our office at [phone] and ask to speak with a nurse. After hours, you can call doctors registry at [phone] OR call [facility] at [phone] and ask to have the doctor clinical documentation specialist paged. If you consider this an emergency, dial 8-6-6 or go to your nearest emergency department. NEED HELP? Are you dealing with a violent or abusive relationship? Are you a victim of rape or sexual assult? Call [facility] ([place]) 24 hour Crisis Hotline: 923.336.1250 or 960-479-3826. MANUAL Your Guide to a Healthy manual is now on-line. Visit [facility]org/HealthyPregn ancyGuide to download your free copy documented in this encounter [facility] 01-14-2025 Progress note Formatting of t his [...] RTO in 2 weeks Khadra Mancini APRN.CNM [facility] 01-14-2025 Miscellaneous Notes BARAK: Yanet Banks is a 29 year old [...] call RTO in 2 weeks Khadra Mancini APRN.MARCELA documented in this encounter [facility] 01-14-2025 Instructions Khadra Mancini APRN.CNM - 01/14/2025 [...] make an easy pie crust in the director of food and beverage services. Add soaked dates to homemade nut butter for a sweet treat. Add dates to eduardo homemade salad dressing. Add dates during easily with these yummy (paleo friendly) bars made from dates. What Is Red Raspberry [place] Tea? Red raspberry leaf tea comes from [...] , and too. How Much Red Raspberry [place] Tea to Drink? With your doctor or nurses director s approval, start with 1 cup of [...] because of uterine cramping. Is Red Raspberry [place] Tea the Same as Raspberry [place] Tea? How About Plain Old Raspberry Tea? Sometimes. You really need to look at the ingredients to be sure. Note that there is no difference between red raspberry leaf and raspberry leaf. [place] Financial Analysis Consultant or Traditional Medicinals Raspberry [place] Tea are two good brands. The red [...] of RRLT outlined in this article. The [employer] www.NewCloud Networks I named this 'circuit' after my friend [...] sideways, 2 at a time, (have a business consultant downstairs of you!), take a walk outside [...] the pelvis. Aziza Amos: Circuit Creator - www.klamath fallssoundbirthcollective.co m Corrie Arevalo, CD, BDT (NICOLE), LCCE, FACCE: Supporting Content - www.[email or web address].[place] Azeem Gee: Photography - www.azeemorderbird AG.[place] Pastora Garcia CD/CDT (ALIDA): Print and Stonemason Helper - www.ZenDeals.TCHO Circuit Masterminds [employer] www.[email or web address].[place] What is my perineum? Your perineum is [...] the above symptoms, contact our office at [phone] and ask to speak with a nurse. After hours, you can call doctors registry at [phone] OR call [facility] at [phone] and ask to have the doctor clinical documentation specialist paged. If you consider this an emergency, dial 4-8- or go to your nearest emergency department. NEED HELP? Are you dealing with a violent or abusive relationship? Are you a victim of rape or sexual assult? Call [facility] ([place]) 24 hour Crisis Hotline: 799.880.3015 or 579-623-4089. MANUAL Your Guide to a Healthy manual is now on-line. Visit [facility]org/HealthyPregn ancyGuide to download your free copy documented in this encounter [facility] 01-01-2025 Telephone encounter Note 3rd risk assessment form submitted 01/01/2025. Nica Uriarte RN [facility] 01-01-2025 Miscellaneous Notes 3rd risk assessment form submitted 01/01/2025. Nica Uriarte RN documented in this encounter [facility] 12-31-2024 Progress note Formatting of t his [...] RTO in 2 weeks Khadra Mancini APRN.CNM [facility] 12-31-2024 Miscellaneous Notes MAGDIEL-S: Yanet Banks is [...] Khadra Mancini APRN.CNM documented in this encounter [facility] 12-31-2024 Instructions Khadra Mancini APRN.CNM - 12/31/2024 8:07 AM EDT [facility] [address] [place] [id number] [facility] [address] [place], [place] [address] [facility] [address] [place] [address] [facility] [address] [address] [email or web address].Reach Surgical [facility] [address] [place] [address] [facility] [address] [place] [address] [email or web address] Primary Healthcare [email or web address].[place] [facility] [address], [place], [place] [id number] [email or web address] [facility] [phone] [facility] centerLevelUp[facility] [address] [place] [address] [facility] [address] [address] Have [place] office also [phone] [email or web address] [email or web address].[place]/dm [place]-office/ [facility] [phone] [address] [facility] [address] [place] [address] [facility] [address] [place] [address] [email or web address] [facility] [address] [place] [address] [email or web address] [email or web address] SIGNS AND SYMPTOMS OF LABOR 1. Contractions every 10 minutes or more often 2. Clear, pink, or brownish fluid (water) leaking from vagina 3. Feeling that baby is pushing down, pressure 4. Low, dull backache 5. Cramps that feel like a period 6. Cramps with or without diarrhea If you notice any of the above symptoms, contact our office at [phone] and ask to speak with a nurse. After hours, you can call doctors registry at [phone] OR call [facility] at [phone] and ask to have the doctor clinical documentation specialist paged. If you consider this an emergency, dial 4-1-7 or go to your nearest emergency department. NEED HELP? Are you dealing with a violent or abusive relationship? Are you a victim of rape or sexual assult? Call [facility] ([place]) 24 hour Crisis Hotline: 343.951.2760 or 759-165-6215. MANUAL Your Guide to a Healthy manual is now on-line. Visit [facility]org/HealthyPregn ancyGuide to download your free copy documented in this encounter [facility] 12-17-2024 Progress note Formatting of t his [...] RTO in 2 weeks Khadra Mancini APRN.CNM [facility] Work Phone: 12-17-2024 Miscellaneous Notes MAGDIELRainerS: Yanet Banks is a 29 year old [...] Khadra Mancini APRN.CNM documented in this encounter [facility] 12-17-2024 Instructions Khadra Mancini APRN.CNM - 12/17/2024 [...] away for further instructions Day Date Day Day Start Start Start End End End [...] the above symptoms, contact our office at [phone] and ask to speak with a nurse. After hours, you can call doctors registry at [phone] OR call [facility] at [phone] and ask to have the doctor clinical documentation specialist paged. If you consider this an emergency, dial or go to your nearest emergency department. NEED HELP? Are you dealing with a violent or abusive relationship? Are you a victim of rape or sexual assult? Call [facility] ([place]) 24 hour Crisis Hotline: 405.885.5609 or 635-108-3418. MANUAL Your Guide to a Healthy manual is now on-line. Visit [email or web address]/HealthyPregn ancyGuide to download your free copy documented in this encounter [facility] 11-19-2024 Progress note Formatting of t his [...] when to call RTO in 4 weeks [facility] 11-19-2024 Miscellaneous Notes MAGDIEL-S: Yanet Banks is [...] in 4 weeks documented in this encounter [facility] 11-19-2024 Instructions Raquel Beatty MA - 11/19/2024 11:23 AM EDT SEQUENTIAL SCREENINGS The [facility] offers sequential screenings for women who are [...] It will require an appointment with our medical service technician. This is not an ultrasound [...] the above symptoms, contact our office at [phone] and ask to speak with a nurse. After hours, you can call doctors registry at [phone] OR call [facility] at [phone] and ask to have the doctor clinical documentation specialist paged. If you consider this an emergency, dial 5-4-4 or go to your nearest emergency department. NEED HELP? Are you dealing with a violent or abusive relationship? Are you a victim of rape or sexual assult? Call [facility] ([place]) 24 hour Crisis Hotline: 506.139.3304 or 345-019-3603. MANUAL Your Guide to a Healthy manual is now on-line. Visit [email or web address]/HealthyPregn ancyGuide to download your free copy documented in this encounter [facility] 10-24-2024 Telephone encounter Note 2nd risk assessment form submitted 10/24/2024. Nica Uriarte RN [facility] 10-24-2024 Miscellaneous Notes 2nd risk assessment form submitted 10/24/2024. Nica Uriarte RN documented in this encounter [facility] 10-23-2024 Progress note Formatting of t his [...] nontender ASSESSMENT/PLAN: 1. 20 weeks gestation of ([facility] 2. Encounter for supervision of other normal in second trimester - Declines ASA - Continue PO daily - RTO 4 weeks Annie Thakur APRN.CNM [facility] 10-23-2024 Miscellaneous Notes S: Yanet Banks is [...] nontender ASSESSMENT/PLAN: 1. 20 weeks gestation of ([facility]) 2. Encounter for supervision of other normal in second trimester - Declines ASA - Continue PO daily - RTO 4 weeks Annie Thakur APRN.CNM documented in this encounter [facility] 10-23-2024 Instructions Erasto Brunson LPN - 10/23/2024 8:42 AM EDT SEQUENTIAL SCREENINGS The [facility] offers sequential screenings for women who are [...] It will require an appointment with our medical service technician. This is not an ultrasound [...] the above symptoms, contact our office at [phone] and ask to speak with a nurse. After hours, you can call doctors registry at [phone] OR call [facility] at [phone] and ask to have the doctor clinical documentation specialist paged. If you consider this an emergency, dial 9-1-8 or go to your nearest emergency department. NEED HELP? Are you dealing with a violent or abusive relationship? Are you a victim of rape or sexual assult? Call [facility] ([facility] 24 hour Crisis Hotline: 420.215.9766 or 422-001-4043. MANUAL Your Guide to a Healthy manual is now on-line. Visit [email or web address]/HealthyPregn ancyGuide to download your free copy documented in this encounter [facility] 09-24-2024 Progress note Formatting of t his [...] RTO in 4 weeks Khadra Mancini APRN.CNM [facility] Work Phone: 09-24-2024 Miscellaneous Notes MAGDIEL-S: Yanet [...] Khadra Mancini APRN.CNM documented in this encounter [facility] 09-24-2024 Rodo Bruno MA - 09/24/2024 9:34 AM EDT SEQUENTIAL SCREENINGS The [facility] offers sequential screenings for women who are [...] It will require an appointment with our medical service technician. This is not an ultrasound [...] the above symptoms, contact our office at [phone] and ask to speak with a nurse. After hours, you can call doctors registry at [phone] OR call [facility] at [phone] and ask to have the doctor clinical documentation specialist paged. If you consider this an emergency, dial 4-1-3 or go to your nearest emergency department. NEED HELP? Are you dealing with a violent or abusive relationship? Are you a victim of rape or sexual assult? Call [facility] ([place]) 24 hour Crisis Hotline: 681.130.3677 or 895-423-1947. MANUAL Your Guide to a Healthy manual is now on-line. Visit [email or web address]/HealthyPregn ancyGuide to download your free copy documented in this encounter [facility] 08-28-2024 Progress note Formatting of t his [...] - RTO 4 weeks Annie Thakur APRN.CNM [facility] 08-28-2024 Miscellaneous Notes S: Yanet Banks is [...] Annie Thakur APRN.CNM documented in this encounter [facility] 08-28-2024 Rodo Bruno MA - 08/28/2024 9:20 AM EST SEQUENTIAL SCREENINGS The [facility] offers sequential screenings for women who are [...] It will require an appointment with our medical service technician. This is not an ultrasound [...] the above symptoms, contact our office at [phone] and ask to speak with a nurse. After hours, you can call doctors registry at [phone] OR call [facility] at [phone] and ask to have the doctor clinical documentation specialist paged. If you consider this an emergency, dial 9-1-3 or go to your nearest emergency department. NEED HELP? Are you dealing with a violent or abusive relationship? Are you a victim of rape or sexual assult? Call [facility] ([place]) 24 hour Crisis Hotline: 166.310.3864 or 737-548-7381. MANUAL Your Guide to a Healthy manual is now on-line. Visit [email or web address]/HealthyPregn ancyGuide to download your free copy documented in this encounter [facility] 08-01-2024 Telephone encounter Note 1st risk assessment form submitted 08/01/24 Shi Medley RN [facility] 08-01-2024 Miscellaneous Notes 1st risk assessment form submitted 08/01/24 Shi Medley RN documented in this encounter [facility] 07-31-2024 Progress note Formatting of t his note might be different from the original. Patient is here for NOB. See progress note. Annie Thakur APRN.CNM [facility] 07-31-2024 Miscellaneous Notes Patient is here for NOB. See progress note. Annie Thakur APRN.CNM documented in this encounter [facility] 07-30-2024 Note HNO ID: [id number] Author: ANNIE THAKUR APRN.CNM Service: ? Author Type: It Field Technician Type: Progress Notes Filed: 07/31/2024 10:13 Note [...] the following (please check all that apply)? It Field Technician care Social History: Do you have any [...] harming myself has occurred to me. 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 (Pat (more content not included)... [facility] 07-30-2024 History of Presen t illness [...] the following (please check all that apply)? It Field Technician care Social History: Do you have any [...] harming myself has occurred to me. 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 As applicable, any other physician, advance practice provider, medical student, or other health professional student that will be observing or involved in the sensitive examination for educational or training purposes was discussed with the Patient or Authorized Tape Folding Machine Operator. The Patient or Authorized Tape Folding Machine Operator has agreed to proceed with the sensitive [...] Your guide to a health and the Bail Bonding Agent. Reviewed midwifery and health information internship services that are available. 2) Screening: Hemoglobin [...] NITISH Thakur APRN.CNM documented in this encounter [facility] 07-30-2024 Instructions Erasto Brunson LPN - 07/30/2024 3:46 PM EST Please select the following link to access the [facility] Your Guide to a Healthy . [email or web address] Please select the following link to access the [facility] Your Guide to a Healthy . [email or web address] documented in this encounter [facility] 07-29-2024 Telephone encounter Note Last visit- 10/25/23 Last refill- 11/22/23 [facility] 07-29-2024 Miscellaneous Notes Last visit- 10/25/23 Last refill- 11/22/23 documented in this encounter [facility] 10-25-2023 Note Encounter Department : [facility], A SERVICE OF [facility] Progress Notes by BRYAN Go at 10/25/2023 7:40 AM Author: BRYAN GoService: -Author Type: Nurse Practitioner Filed: 10/25/2023 9:31 AMEncounter Date: 10/25/2023Status: Signed Senior Loss Control Specialist: Ling Daly APRN-JAKE (Nurse Practitioner) Yanet Banks Age: 27 y.o. [...] She is requesting to return back to [facility] as before. She is aware that her [...] Medication List: Current Outpatient Medications Ordered in [facility] MedicationSigDispenseRefill -etonogestreL-ethinyl estradioL (NUVARING) 0.12-0.015 mg/24 hr vaginal ringInsert vaginally and leave in place for 3 consecutive weeks, then remove for 1 week.1 each0 No current [facility]-ordered facility-administered medications on file. Allergies: Allergies AllergenReactions -AzithromycinHives and Diarrhea -Pertussis VaccinesHives Visit Vitals BP120/78 (Ortho BP Site: Left Upper Arm, Ortho BP Position: Sitting, Ortho BP Cuff Size: Regular Adult) Pulse(!) 56 Temp97.8 ?F (36.6 ?C) Resp16 Wt114 lb 8 oz (51.9 kg) QuL2258% BMI21.63 kg/m? Physical Exam: Physical Exam Vitals [...] Assessment and Pl (more content not included)... [facility] 07-27-2023 Note Encounter Department : [facility], A SERVICE OF [facility] Progress Notes by Maryann Mathias MD at 07/27/2023 10:20 AM Author: MENDOZA Lezamaervice: -Author Type: Physician Filed: 07/27/2023 12:42 PMEncounter Date: 07/27/2023Status: Signed Senior Loss Control Specialist: Maryann Mathias MD (Physician) Yanet Banks Age: 27 y.o. : 1995 Chief Complaint: Chief Complaint Patient presents with -Sore Throat -Sinus Problem Nursing Note: Pt sts sinus issue and sore throat since the Monday before . Pt sts she thinks she may [...] Medication List: Current Outpatient Medications Ordered in [facility] MedicationSigDispenseRefill -cephALEXin (KEFLEX) 500 mg capsuleTake 1 capsule (500 mg total) by mouth in the morning and 1 capsule (500 mg total) at noon and 1 capsule (500 mg total) in the evening. Do all this for 7 days.21 capsule0 -norethindrone (KRIS) 0.35 mg tabletTake 1 tablet (0.35 mg total) by mouth daily.28 [id number] No current [facility]-ordered facility-administered medications on file. Allergies: Allergies AllergenReactions -AzithromycinHives and Diarrhea -Pertussis VaccinesHives Visit Vitals BP106/71 Pulse78 Wt116 lb 1.6 oz (52.7 kg) LfB088% BMI21.94 kg/m? Physical Exam: Physical Exam Vitals [...] unspecified etiology (Primary) Comments: Likely viral. Continue ltqp-zam-daiinlc symptomatic treatment Orders: - POCT Rapid Strep Test Mastalgia Comments: Likely clogged milk duct. Continue massage. Warm moist heat. Antibiotics only if she notices redness or warmth Other orders - cephALEXin (KEFLEX) 500 mg capsule Dispense: 21 capsule; Refill: 0 Electronically Signed by: Maryann Mathias MD, 07/27/2023 12:42 PM [facility] 01-16-2023 Note Encounter Department : [facility], A SERVICE OF [facility] Progress Notes by Ling Daly APRN-FINANCE CLERK at 01/16/2023 9:20 AM Author: Ling Daly APRN-CNPService: -Author Type: Nurse Practitioner Filed: 01/16/2023 2:34 PMEncounter Date: 01/16/2023Status: Signed Senior Loss Control Specialist: BRYAN Go (Nurse Practitioner) Yanet Banks Age: [...] Medication List: Current Outpatient Medications Ordered in [facility] MedicationSigDispenseRefill -norethindrone (KRIS) 0.35 mg tabletTake 1 tablet (0.35 mg total) by mouth daily.28 [id number] No current [facility]-ordered facility-administered medications on file. Allergies: Allergies AllergenReactions -AzithromycinHives and Diarrhea -Pertussis VaccinesHives Visit Vitals BP108/70 (Ortho BP Site: Left Upper Arm, Ortho BP Position: Sitting, Ortho BP Cuff Size: Adult) Pulse68 Temp97.4 ?F (36.3 ?C) Resp16 Wt120 lb 4.8 oz (54.6 kg) XsG183% BMI22.73 kg/m? Physical Exam: Physical Exam Vitals [...] regimen is e (more content not included)... [facility] 11-19-2022 Note 11/19/22 1100 History Consult Follow-up;Discharge teaching Pt states baby well and with good frequency. Reports latch is improving. Discharge teaching reviewed/complete. Card given. No questions at this time. [facility] 11-19-2022 Note @HOSPITAL SUMMARY AT DISCHARGE OBSTETRICS [...] 7.1 oz) ADDITIONAL DIAGNOSES / COMMENTS: none [facility] 11-19-2022 Note Problem: Constipatio n Goal: Active [...] Outcome: Progressing Goal: Effective breast-feeding Outcome: Progressing [facility] 11-18-2022 Note Problem: Maternal In jacques Feeding - Ineffective, Risk of Goal: Parent-infant attachment Outcome: Progressing Goal: Effective breast-feeding Outcome: Progressing [facility] 11-18-2022 Note ICM Progress Note Chart reviewed. ICM available as needed. DC plan: Home Estimated DC Date: November 19, 2022 Electronically signed by: Estefany Joseph RN, OB Provider Relations Advocate, Phone [phone]. Weekday Office Hours: 7:30-4:00. Holiday/Weekends [phone]. For urgent needs between 5p-7p, please call [phone]. If after 7pm, please call [facility] at [phone]. [facility] 11-18-2022 Note Problem: Constipatio n Goal: Active [...] Outcome: Progressing Goal: Effective breast-feeding Outcome: Progressing [facility] 11-18-2022 Note Problem: Constipatio n Goal: Active [...] Outcome: Progressing Goal: Effective breast-feeding Outcome: Progressing [facility] 09-12-2022 Note Patient presents for care. active. No concerns today. Planning FBBC. S=D GFM RTO 2 week Education: PTL and FMA precautions Provider Locations 06-30-2022 Note Patient presents for care. Infant active. No concerns today. Just came from [...] limits LIPASE - Normal HEPATIC FUNCTION PANEL [facility] 04-23-2022 Emergency department Note ED Course & [...] w/d speech clear documented in this encounter [facility] 04-23-2022 Emergency department Note Arrived with reports of having diarrhea/vomiting and fever - since this am - pt states that she began feeling bad after eating dinner last night- pt states that she is 9 weeks - denies any vaginal bleeding Temp 101 per pt report - a/o x3 skin w/d speech clear [facility] Evaluation note Diagnosis Nausea vomiting and diarrhea- Primary Nausea with vomiting documented in this encounter [facility] note* Diagnosis Encounter for initial prescription of vaginal ring hormonal contraceptive documented in this encounter [facility] note* Diagnosis Encounter for supervision of normal in multigravida- Primary 8 weeks gestation of state, incidental Multiparity documented in this encounter [facility] note* Diagnosis 12 weeks gestation of - Primary state, incidental Encounter for supervision of other normal in second trimester Multiparity documented in this encounter [facility] note* Diagnosis Encounter for screening for malformation [...] third trimester (HCC) [facility] Diagnosis 39 weeks gestation of (HCC)- Primary state, incidental Encounter for supervision of other normal in third trimester (HCC) [facility] Diagnosis Encounter for supervision of other normal in third trimester (HCC)- Primary 40 weeks gestation of (HCC) state, incidental Multiparity documented [facility] Diagnosis Onset Date Resolution Status Admit Date 40 weeks gestation of acut e March 13, 2025 1:13am Irregular contractions acute Au 2024 1:13am Labor, prolonged latent phase acute March 13, 2025 1:13am [facility] Work Phone: Evaluation note* Diagnosis Post-term , 40-42 weeks of gestation (HCC)- Primary Post term , unspecified episode of care 40 weeks gestation of (HCC) state, incidental documented in this encounter [facility] note* Diagnosis Encounter for supervision of other normal in third trimester (HCC)- Primary 40 weeks gestation of ([facility]) state, incidental Multiparity documented in this [facility] Author Chinyere Bradley [facility] Note Date/Time March 13, 2025 2: 04am [facility] Medical Records Department [address] [place] [address] OB Triage Physician Note 03/13/25 0152 MR#: [id number] Acct: [id number] Name: YANET BANKS Rep #:[id number] : 1995 29 From: Chinyere Lehman MD PCP: Care Physician,No Primary Status :REG CLI Y Location: [id number] HPI - General General Date of Admission: [...] MD; No Primary Care Physician ~ Signed [facility] Work Phone: Hospital Discharge instructions* Attachments The following attachments cannot be sent through Care Everywhere. * Nausea and Vomiting (Chadian) * Diarrhea (Chadian) * Ondansetron, ADULT (Chadian) documented in [facility] encounter[facility] HealthReason for referral (narrative)* Diagnostic Procedure Only (Routine) - Authorized Specialty Diagnoses / Procedures Referred By Kristen alston Referred To Contact [facility] Diagnoses Encounter for supervision of normal in multigravida 8 weeks gestation of Procedures OBSTETRIC ULTRASOUND WHI US PREG UTERUS AFTER 1ST TRIMEST GESTATION Annie Thakur APRN.MARCELA [address] [place] [address] [facility] [address] [place] [id number] Referral ID Status Reason Start Date Expiration Date Visits Requested Visits Authorized [id number] Authorized Auto-Generat ed Referral 07/31/2024 07/31/2025 1 1 * Diagnostic Procedure Only (Routine) - Authorized Specialty Diagnoses / Procedures Referred By Kristen alston Referred To Contact [facility] Diagnoses Encounter for supervision of normal in multigravida 8 weeks gestation of Procedures OBSTETRIC ULTRASOUND WHI US PREG UTERUS AFTER 1ST TRIMEST Annie Thakur APRN.CNM [address] [place] [address] [facility] [address] [place] [address] Referral ID Status Reason Start Date Expiration Date Visits Requested Visits Authorized [id number] Authorized Auto-Generat ed Referral 07/31/2024 07/31/2025 1 1 [facility]narrative)No reason for referral information availableWACMC [facility] Work Phone: Summary Purpose Family History No [...] Referred By Kristen alston Referred To Contact [facility] Diagnoses Encounter for supervision of normal in multigravida 8 weeks gestation of Procedures OBSTETRIC ULTRASOUND WHI US PREG UTERUS AFTER 1ST TRIMEST PlotAnnie beckham APRN.[facility] [address] [place] [address] Phone: tel: fax:[phone] [address] Referral ID Status Reason Start Date Expiration Date V isits Requested Visits Authorized [id number] Closed Auto-Generate d Referral 07/31/2024 07/31/2025 1 1 Reason Onset Date Comments Care 09/24/2024 Reason Onset Date Comments Care 10/23/2024 Specialty Diagnoses / Procedures Referred By Contac t Referred To Contact [facility] Diagnoses Encounter for supervision of normal in multigravida (HCC) 8 weeks gestation of ([facility]) Procedures OBSTETRIC ULTRASOUND WHI US PREG UTERUS AFTER 1ST TRIMEST GESTATION StephanieAnnie beckham APRN.[facility] [address] [place] [address] Phone: tel: fax:[phone] [address] Referral ID Status Reason Start Date Expiration Date V isits Requested Visits Authorized [id number] Closed Auto-Generate d Referral 07/31/2024 07/31/2025 1 1 Reason Comments Therapeutic Recreation Leader - Other PRAF Reason Onset Date Comments [...] Referred By Contac t Referred To Contact [facility] Diagnoses Encounter for supervision of other normal in third trimester (HCC) 40 weeks gestation of (HCC) Procedures OBSTETRIC ULTRASOUND WHI US PREG UTERUS AFTER 1ST TRIMEST GESTATION Khadra Mancini APRN.CNCandice [address] [place] [place] [address] Phone: tel: fax: [facility] [address] [place] [address] Referral ID Status Reason Start Date Expiration Date V isits Requested Visits Authorized [id number] Closed Auto-Generate d Referral 03/11/2025 03/11/2026 3 [...] Care Teams (unrecognized sec tion and content) Wash Rack Operator Relationship Specialty Start Date End Date Maryann Mathias MD [address] [place] [address] PCP - General Family Practice 04/23/22 Wash Rack Operator Relationship Specialty Start Date End Date Maryann Mathias MD [address] [place] [address] PCP - General Family Medicine 12/03/19 [...] and content) DATE CREATED AUTHOR 11/28/2022 [facility] DATE CREATED AUTHOR AUTHOR'S ORGANIZ ATION 04/09/2023 Provider Locatio ns DATE CREATED AUTHOR AUTHOR'S ORGANIZ ATION 10/26/2023 [facility] DATE CREATED AUTHOR AUTHOR'S ORGANIZ ATION 03/14/2025 [facility] DATE CREATED AUTHOR AUTHOR'S ORGANIZ ATION 03/16/2025 [facility] Source Comments (unrecognize d section and content) In the event this informatio n is protected by the Federal Confidentiality of Alcohol and Drug Abuse Patient Records regulations: The Federal rules restrict any use of the information to criminally investigate or prosecute any alcohol or drug abuse patient.[facility] the event this information is protected by the Federal Confidentiality of Alcohol and Drug Abuse Patient Records regulations: The Federal rules restrict any use of the information to criminally investigate or prosecute any alcohol or drug abuse patient.[facility] the event this information is protected by the Federal Confidentiality of Alcohol and Drug Abuse Patient Records regulations: The Federal rules restrict any use of the information to criminally investigate or prosecute any alcohol or drug abuse patient.[facility] the event this information is protected by the Federal Confidentiality of Alcohol and Drug Abuse Patient Records regulations: The Federal rules restrict any use of the information to criminally investigate or prosecute any alcohol or drug abuse patient.[facility] the event this information is protected by the Federal Confidentiality of Alcohol and Drug Abuse Patient Records regulations: The Federal rules restrict any use of the information to criminally investigate or prosecute any alcohol or drug abuse patient.[facility] the event this information is protected by the Federal Confidentiality of Alcohol and Drug Abuse Patient Records regulations: The Federal rules restrict any use of the information to criminally investigate or prosecute any alcohol or drug abuse patient.[facility] the event this information is protected by the Federal Confidentiality of Alcohol and Drug Abuse Patient Records regulations: The Federal rules restrict any use of the information to criminally investigate or prosecute any alcohol or drug abuse patient.[facility] the event this information is protected by the Federal Confidentiality of Alcohol and Drug Abuse Patient Records regulations: The Federal rules restrict any use of the information to criminally investigate or prosecute any alcohol or drug abuse patient.[facility] the event this information is protected by the Federal Confidentiality of Alcohol and Drug Abuse Patient Records regulations: The Federal rules restrict any use of the information to criminally investigate or prosecute any alcohol or drug abuse patient.[facility] the event this information is protected by the Federal Confidentiality of Alcohol and Drug Abuse Patient Records regulations: The Federal rules restrict any use of the information to criminally investigate or prosecute any alcohol or drug abuse patient.[facility] the event this information is protected by the Federal Confidentiality of Alcohol and Drug Abuse Patient Records regulations: The Federal rules restrict any use of the information to criminally investigate or prosecute any alcohol or drug abuse patient.[facility] the event this information is protected by the Federal Confidentiality of Alcohol and Drug Abuse Patient Records regulations: The Federal rules restrict any use of the information to criminally investigate or prosecute any alcohol or drug abuse patient.[facility] the event this information is protected by the Federal Confidentiality of Alcohol and Drug Abuse Patient Records regulations: The Federal rules restrict any use of the information to criminally investigate or prosecute any alcohol or drug abuse patient.[facility] the event this information is protected by the Federal Confidentiality of Alcohol and Drug Abuse Patient Records regulations: The Federal rules restrict any use of the information to criminally investigate or prosecute any alcohol or drug abuse patient.[facility] the event this information is protected by the Federal Confidentiality of Alcohol and Drug Abuse Patient Records regulations: The Federal rules restrict any use of the information to criminally investigate or prosecute any alcohol or drug abuse patient.[facility] the event this information is protected by the Federal Confidentiality of Alcohol and Drug Abuse Patient Records regulations: The Federal rules restrict any use of the information to criminally investigate or prosecute any alcohol or drug abuse patient.[facility] the event this information is protected by the Federal Confidentiality of Alcohol and Drug Abuse Patient Records regulations: The Federal rules restrict any use of the information to criminally investigate or prosecute any alcohol or drug abuse patient.[facility] the event this information is protected by the Federal Confidentiality of Alcohol and Drug Abuse Patient Records regulations: The Federal rules restrict any use of the information to criminally investigate or prosecute any alcohol or drug abuse patient.[facility] the event this information is protected by the Federal Confidentiality of Alcohol and Drug Abuse Patient Records regulations: The Federal rules restrict any use of the information to criminally investigate or prosecute any alcohol or drug abuse patient.[facility] the event this information is protected by the Federal Confidentiality of Alcohol and Drug Abuse Patient Records regulations: The Federal rules restrict any use of the information to criminally investigate or prosecute any alcohol or drug abuse patient.[facility] the event this information is protected by the Federal Confidentiality of Alcohol and Drug Abuse Patient Records regulations: The Federal rules restrict any use of the information to criminally investigate or prosecute any alcohol or drug abuse patient.[facility] the event this information is protected by the Federal Confidentiality of Alcohol and Drug Abuse Patient Records regulations: The Federal rules restrict any use of the information to criminally investigate or prosecute any alcohol or drug abuse patient.[facility] the event this information is protected by the Federal Confidentiality of Alcohol and Drug Abuse Patient Records regulations: The Federal rules restrict any use of the information to criminally investigate or prosecute any alcohol or drug abuse patient.[facility] the event this information is protected by the Federal Confidentiality of Alcohol and Drug Abuse Patient Records regulations: The Federal rules restrict any use of the information to criminally investigate or prosecute any alcohol or drug abuse patient.[facility] the event this information is protected by the Federal Confidentiality of Alcohol and Drug Abuse Patient Records regulations: The Federal rules restrict any use of the information to criminally investigate or prosecute any alcohol or drug abuse patient.[facility] the event this information is protected by the Federal Confidentiality of Alcohol and Drug Abuse Patient Records regulations: The Federal rules restrict any use of the information to criminally investigate or prosecute any alcohol or drug abuse patient.[facility] the event this information is protected by the Federal Confidentiality of Alcohol and Drug Abuse Patient Records regulations: The Federal rules restrict any use of the information to criminally investigate or prosecute any alcohol or drug abuse patient.[facility] Goals (unrecognized section and content) Goals may [...] BE BASED ON THE PRIMARY CLINICAL RECORDS. [employer] [facility]. provides no warranty or guarantee of the accuracy or completeness of information in this document.
[2025-03-16] MEDS: Prenatal Vits Tablet 1 TABLET PO ×2 (10:32→10:34)
--- NOTE | 2025-03-16 12:38 | PCM.PN.OB ---
Subjective Subjective Doing well per patient and nursing staff. Ambulating and taking PO without difficulty. Voiding and passing flatus. Pain controlled. , services for assistance. Denies headache, visual changes, chest pain, shortness of breath, leg pain or increased bleeding. Lochia normal. Objective Data Objective Data Vital Signs: Vital Signs Temp Pulse Resp BP Pulse Ox O2 Del Method 97.6 F L 69 16 127/87 H 99 Room Air 03/16/25 10:00 03/16/25 10:00 03/16/25 10:00 03/16/25 10:00 03/16/25 10:00 03/16/25 10:00 Oxygen Delivery Method Room Air Weight: 157 lb 6.561 oz Body Mass Index (BMI) 28.8 Intake & Output: Intake and Output for Last 24 Hours 03/14/25 03/15/25 03/16/25 23:59 23:59 23:59 Intake Total 461.65 / 461.65 Output Total 200 / 200 Balance 261.65 / 261.65 Lab / Micro Data 03/15/25 21:24 03/15/25 21:24 Labs: Laboratory Results - last 24 hr 03/15/25 21:24: WBC 7.3, RBC 4.09 L, Hgb 13.3, Hct 37.1, MCV 90.7, MCH 32.5 H, MCHC 35.8, RDW Std Deviation 40.4, RDW Coeff of Jesus 12.4, Plt Count 254, MPV 9.6, Immature Gran % (Auto) 0.500, Neut % (Auto) 65.1, Lymph % (Auto) 27.2, [place] % (Auto) 5.9, Eos % (Auto) 1.0, Baso % (Auto) 0.3, Absolute Neuts (auto) 4.8, Absolute Lymphs (auto) 2.00, Nucleated RBC % 0, Creatinine 0.64 L, Estim Creat Clear Calc 118.94, Est GFR (MDRD) Non-Af 122, ALT 20, Syphilis Total Ab Nonreactive, Blood Type O POSITIVE, Antibody Screen NEGATIVE 03/15/25 21:25: Uric Acid 4.5, AST 26, U Random Total Protein 9.0, Urine Creatinine 15.80 L, Protein/Creatinin Ratio 566 H ROS Constitutional Constitutional: Reports systems reviewed and no addt'l complaints, except as documented; Denies headache(s) Eyes Eyes: Denies acute decrease in peripheral vision, blurry vision or change in vision ENT HEENT: Reports systems reviewed and no addt'l complaints, except as documented Cardiovascular Cardiovascular: Denies chest pain or dizziness Respiratory/Chest Respiratory/Chest: Denies cough, dyspnea, dyspnea on exertion, shortness of breath at rest or shortness of breath with exertion Gastrointestinal Gastrointestinal: Denies abdominal pain, diarrhea, nausea or vomiting Genitourinary Genitourinary: Denies abdominal discomfort Musculoskeletal Musculoskeletal: Denies limited range of motion Integumentary Integumentary: Reports systems reviewed and no addt'l complaints, except as documented Neurologic Neurologic: Reports systems reviewed and no addt'l complaints, except as documented Psychiatric Psychiatric: Reports systems reviewed and no addt'l complaints, except as documented Endocrine Endocrinology: Reports systems reviewed and no addt'l complaints, except as documented Hematologic/Lymphatic Hematologic/Lymphatic: Reports systems reviewed and no addt'l complaints, except as documented Allergic/Immunologic Allergic/Immunologic: Reports systems reviewed and no addt'l complaints, except as documented Physical Exam Const alert and oriented x3 General Appearance: cooperative Orientation / Consciousness: awake, oriented to person, oriented to place and oriented to time Exam Limitations: no limitations HEENT normocephalic Head and Scalp: normal to inspection, normocephalic and atraumatic Face and Sinus: normal facial exam Eyes General Eye: normal appearance of both eyes Neck full ROM Chest Chest: symmetrical chest wall rise Resp normal respiratory effort and normal air movement Auscultation: clear to auscultation bilaterally Cardio regular rate, regular rhythm, S1 normal heart sound, S2 normal heart sound, no murmurs, no rub, no gallops and no clicks GI normal to inspection, nondistended, normoactive bowel sounds and non-tender GI Narrative: Fundus firm 2 below U appearance of the vagina normal Narrative: Normal lochia rubra Bladder / Kidney Exam: no CVA tenderness Back/Spine normal ROM Extremity normal to inspection and full ROM Skin no rashes or lesions noted Neuro oriented x3, CN's II-XII intact bilaterally and moves all extremities Sensorium / Orientation: awake, alert and oriented to person Motor Exam: clonus absent Deep Tendon Reflexes: Rt Patellar (L4): 2+ and Lt Patellar (L4): 2+ Assessment & Plan (1) Preeclampsia: (2) Lactating mother: (3) Vaginal delivery: (4) Multiparous: PLAN: Plan 1) Routine PPD#1 2) Vitals stable, preeclampsia, no elevated levels 3) I&O 4) Pain management 5) services PRN 6) Planning D/C home tomorrow, recommend 72 hrs but may request tomorrow
[2025-03-16] MEDS: Senna/Docusate Sodium 1 Tablet PO (18:15)
[2025-03-17 01:05] VITALS: BP 121/89; PULSE 63; RESP 14; TEMP 36.8; O2SAT 98
[2025-03-17 08:30] VITALS: BP 125/84; PULSE 58; RESP 16; TEMP 36.3; O2SAT 98
--- NOTE | 2025-03-17 09:00 | PCM.PN.OB ---
Subjective Subjective Doing well. Ambulating and voiding without difficulty. Mild lochia. Breast feeding. BP elevated in labor. Few low mild after delivered. No SMALLS. Reviewed s/s of PreE. Has access to BP cuff. Objective Data Objective Data Vital Signs: Vital Signs Temp Pulse Resp BP Pulse Ox O2 Del Method 98.3 F 63 14 121/89 H 98 Room Air 03/17/25 01:05 03/17/25 01:05 03/17/25 01:05 03/17/25 01:05 03/17/25 01:05 03/17/25 01:05 Oxygen Delivery Method Room Air Weight: 71.4 kg Body Mass Index (BMI) 28.8 Intake & Output: Intake and Output for Last 24 Hours 03/15/25 03/16/25 03/17/25 23:59 23:59 23:59 Intake Total 461.65 / 461.65 Output Total 200 / 200 Balance 261.65 / 261.65 Lab / Micro Data 03/15/25 21:24 03/15/25 21:24 ROS Constitutional Constitutional: Denies headache(s) Cardiovascular Cardiovascular: Denies chest pain or dyspnea Gastrointestinal Gastrointestinal: Denies nausea or vomiting Genitourinary Genitourinary: Denies dysuria Physical Exam Const alert, oriented x3 and no apparent distress General Appearance: cooperative and comfortable Eyes PERRL and EOMs intact bilaterally Resp normal respiratory effort GI soft to palpation and non-tender Uterus Palpation: uterus fundus firm ( below umbilicus) Extremity normal to inspection and full ROM Neuro oriented x3 and CN's II-XII intact bilaterally Psych mental status grossly normal Assessment & Plan (1) Vaginal delivery: (2) Lactating mother: (3) Preeclampsia: QUALIFIERS: Trimester: third trimester Qualified Code(s): O14.93 - Unspecified pre-eclampsia, third trimester PLAN: Plan Needs follow up in 72 hours. S/s and reviewed.
--- NOTE | 2025-03-17 09:03 | DS.PCM_ITS ---
Providers Date of Admission: 03/15/25 Date of Discharge: 03/17/25 Primary Care Physician: Rosario Primary Care Phys Reason For Visit: VAG Diagnosis Discharge Diagnosis (1) Vaginal delivery: Status: Acute Code(s): O80 - Encounter for full-term uncomplicated delivery (2) Lactating mother: Status: Acute Code(s): Z39.1 - Encounter for care and examination of lactating mother (3) Preeclampsia: Status: Acute Code(s): O14.90 - Unspecified pre-eclampsia, unspecified trimester Qualifiers: Trimester: third trimester Qualified Code(s): O14.93 - Unspecified pre- eclampsia, third trimester Plan Needs follow up in 72 hours. S/s and reviewed. Medications at Discharge Home Medications magnesium 200 mg tablet 200 mg PO DAILY insomnia 03/15/25 vit no.95-ferrous fumarate 28 mg-folic acid 800 mcg tablet () 1 tab PO DAILY 03/15/25 Hospital Course Operations None Procedures None Summary of Care Provided Minutes Spent on Discharge: 20 Hospital Course: Admitted in active labor. BP elevated and diagnosed with Pre E. Stable post . Physical Exam Const alert and no apparent distress Narrative: Fundus firm, below umbilicus. Weight / BMI Weight Weight: 71.4 kg Body Mass Index (BMI) 28.8 ABG / Lab / Microbiology Data 03/15/25 21:24 03/15/25 21:24 D/C Instructions DC O2, CPAP, BIPAP Needs Home O2 Discharge instructions: No Meaningful Use Info Meaningful Use Meaningful Use Diagnoses (Choose all that apply): None applicable Discharge Plan Admission Admit Date/Time: 03/15/25 21:10 Primary Reason for Your Visit: labor Attending Provider: Khadra Mancini Primary Care Provider: Care Rosario Alcazar Primary Discharge Orders/Prescriptions Prescriptions: No Action PNV no.95-ferrous fumarate-FA [] 28 mg iron- 800 mcg tablet 1 tab PO DAILY magnesium 200 mg tablet 200 mg PO DAILY Referrals / Follow Up: Care Physician,Rosario Primary [Primary Care Provider] - Disposition Disposition (needs filled in before D/C Order can be placed): Home, Self Care
[2025-03-17] MEDS: Senna/Docusate Sodium 1 Tablet PO (09:48)
[2025-03-17] MEDS: Prenatal Vits Tablet 1 TABLET PO (09:48)
[2025-03-17 12:37] VITALS: BP 115/68
[2025-03-17 15:50] VITALS: BP 135/83; PULSE 68; RESP 16; TEMP 36.4; O2SAT 98
--- NOTE | 2025-03-21 14:12 | NUR.TO.PHY ---
F/up questions asked at [facility] visit on 03/20 at 1530. Pt. feeling well, milk coming in. Denies s+s of complications, lochia small. Encouragement and support given.
== END 2025-03-17 16:38 | disposition home or self-care (01) | DRG 560 ==
LOC: WPOUT 21:12 → WP 23:42
PROVIDERS: Admitting Provider Advanced Practice Midwife; Visit Provider Advanced Practice Midwife
DX: O14.94 Unspecified pre-eclampsia, complicating childbirth (principal); Z37.0 Single live birth; O48.0 Post-term pregnancy; Z3A.41 41 weeks gestation of pregnancy; Z39.1 Encounter for care and examination of lactating mother; Z64.1 Problems related to multiparity
CPT/HCPCS: 59025; 59050; 82565; 82570; 84156; 84450; 84460; 84550; 85025; 85027; 86780; 86850; 86900; 86901; 99221; G0378